=== PATIENT | female | born 1945 | race Caucasian/White ===

== ENCOUNTER 2018-03-14 14:31 | Inpatient (IN) | payer OTHER ==
[~2018-03-14] VITALS: Ht 157.5 cm; Wt 88.4 kg
[2018-03-14] MEDS ORDERED: ALBUTEROL 0.083% NEBU SOLN 3 ML VIAL INH STA (15:17)
[2018-03-14] MEDS ORDERED: METHYLPREDNISOLONE 125 MG VIAL IV STA (15:17)
--- NOTE | 2018-03-14 16:03 | DIAGNOSTIC IMAGING REPORT ---
SINGLE VIEW CHEST CLINICAL HISTORY: Atypical chest pain. FINDINGS: An AP, portable, upright chest radiograph is obtained. No prior studies are available for comparison at the time of dictation. The examination is degraded by portable technique and patient rotation. The heart is mildly enlarged and there is atherosclerotic calcification of the thoracic aorta. Enlargement of the central pulmonary arteries suggests pulmonary artery hypertension. There is prominence of the central pulmonary vasculature. Patchy airspace opacities are present at both lung bases. Nonspecific interstitial thickening is likely chronic. No large pleural effusion or pneumothorax is seen. The skeletal structures are osteopenic. The bony thorax is grossly intact. IMPRESSION: 1. Cardiomegaly with prominence of the central pulmonary vessels. Correlate clinically for evidence of mild congestive failure. 2. There are bibasilar airspace opacities. This could represent atelectasis versus an infectious/inflammatory pneumonitis. Clinical correlation will be required and radiographic follow-up to resolution is recommended. Electronically signed by: Bogdan Graham M.D. 03/14/2018 4:02 PM Dictated Date/Time: 03/14/2018 4:00 PM
[2018-03-14] MEDS ORDERED: ASPI325T39 PO (16:11)
[2018-03-14] MEDS ORDERED: TRMCR130WC TOP (16:11)
[2018-03-14] MEDS ORDERED: IPRA1AER2 INH (16:11)
[2018-03-14] MEDS ORDERED: PRED20TA PO (16:11)
[2018-03-14] MEDS ORDERED: ADVIN25/60 INH (16:11)
[2018-03-14] MEDS ORDERED: VNTHFA/IN INH (16:11)
[2018-03-14 16:48] LABS: CALCIUM 8.5 mg/dl (8.5-10.1); CKMB 3.2 ng/ml (0.5-3.6); CREATININE 0.93 mg/dl (0.60-1.20); POTASSIUM 3.4 mmol/L (3.5-5.1)
[2018-03-14 16:51] LABS: BASO % 0.3 %; BASO ABS # 0.03 K/uL (0-0.2); HEMATOCRIT 44.9 % (37-47); HEMOGLOBIN 16.3 g/dL (12.0-16.0); IG# 0.07 K/uL (0.00-0.02); LYMPH % 5.7 %; LYMPH ABS # 0.66 K/uL (1.2-3.4); MEAN CELL VOLUME 85.2 fL (80-100); MEAN CORPUSCULAR HEMOGLOBIN 30.9 pg (25-34); MEAN CORPUSCULAR HGB CONC 36.3 g/dl (32-36); MEAN PLATELET VOLUME 12.7 fL (7.4-10.4); MONO % 11.7 %; MONO ABS # 1.34 K/uL (0.11-0.59); NEUT % 81.7 %; NEUT ABS # 9.38 K/uL (1.4-6.5); PLATELET COUNT 190 K/uL (130-400); RED CELL DISTRIBUTION WIDTH SD 43.2 fL (36.4-46.3); WHITE BLOOD COUNT 11.48 K/uL (4.8-10.8)
[2018-03-14] MEDS ORDERED: LEVAQUIN 750MG / 150ML D5W IV STA (16:58)
[2018-03-14] MEDS ORDERED: ASPIRIN 81 MG CHEW PO STA (16:58)
[2018-03-14] MEDS ORDERED: POTASSIUM CHLORIDE 10 MEQ TABCR PO STA (17:51)
[2018-03-14] MEDS ORDERED: ACETAMINOPHEN 325 MG TAB PO PRN (18:00)
[2018-03-14] MEDS ORDERED: B-CO1CAP3 (18:04)
[2018-03-14] MEDS ORDERED: SODIUM CHLORIDE 0.9% 1000ML 1,000 ML IV SCH (18:15)
[2018-03-14] MEDS ORDERED: OPTIRAY 320 IV PRN (18:15)
--- NOTE | 2018-03-14 18:19 | EMERGENCY ROOM VISIT NOTE ---
History Report prepared by Jarredibpipe: Mary Sabillon Under the Supervision of: Dr. Mik Reyes D.O. First contact with patient: 15:06 Chief Complaint: RESPIRATORY DISTRESS Stated Complaint: RESPIRATORY Nursing Triage Summary: Patient to ED via ALS from home for acute SOB. Per EMS, pt found wearing chronic o2 3lpm. On arrival, O2sat 90%, placed pt on oxymask O2 15lpm to achieve o2 sat 95%. RR 30's. Sinus tach 130's. Temp 101 F. Pt recieved approx 400ml IV NSS prehospital. Pt denies chest/abdominal pain. O2 sat 94% on o2 4lpm. Red wound noted to left leg. BLE edematous. Patient incontinent of urine. History of Present Illness The patient is a 72 year old female who presents to the Emergency Room with complaints of worsening shortness of breath for the past 2 months, stating she could not breathe. She normally wears 3 to 4 L NC chronically for a history of chronic bronchitis. She was 90% on EMS arrival and was placed on an oxygen mask , increasing to 95%. She denies any chest pain or new cough. Patient denies any history of COPD, congestive heart failure, blood clots, or asthma. She admits to recent weight gain and leg swelling. She also complains of "clear, thick, mucous in the lungs with difficulty getting it out," and it has been occurring for a few months. She spoke to her home nurse on the phone earlier today, and told him about her recent trouble breathing. The nurse recommended that she go to the hospital. 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 A total of 10 systems reviewed and were otherwise negative. Past Medical & Surgical Medical Problems: (1) Chronic bronchitis (2) COPD exacerbation Social History Smoking Status: Never Smoker Alcohol Use: none Drug Use: none Marital Status: Housing Status: lives alone Occupation Status: retired Current/Historical Medications Scheduled Fluticasone Prop/Salmeterol (Advair Diskus 250/50 60 Dose), 1 PUFF INH BID Ipratropium-Albuterol (Combivent Respimat), 1 PUFFS INH Q4 Prednisone (Prednisone), 40 MG PO DAILY Triamcinolone Acet (Aristocort 0.1%), 1 APPLN TOP BID Scheduled PRN Albuterol Hfa (Ventolin Hfa), 2 PUFFS INH Q4 PRN for SOB/Wheezing Miscellaneous Medications B-Complex Vitamins (B Complex) Allergies Coded Allergies: No Known Allergies (Unverified , 03/14/18) Physical Exam Vital Signs Date Time Temp Pulse Resp B/P (MAP) Pulse Ox O2 Delivery O2 Flow Rate FiO2 03/14/18 17:37 113 03/14/18 16:44 37.7 113 31 160/85 92 Oxymask 6.0 03/14/18 14:44 109 03/14/18 14:40 93 Oxymask 6.0 03/14/18 14:35 89 Nasal Cannula 4.0 03/14/18 14:35 37.6 105 30 160/85 89 Nasal Cannula 4.0 Physical Exam GENERAL: Sitting up in bed, alert, ill appearing, dyspneic with conversation on oxygen mask, well nourished, no distress, non-toxic EYE EXAM: normal conjunctiva. OROPHARYNX: no exudate, no erythema, lips, buccal mucosa, and tongue normal and mucous membranes are moist NECK: supple, no nuchal rigidity, no adenopathy, non-tender LUNGS: Lung sounds are diminished bilaterally, with poor air movement. Normal chest wall mechanics HEART: no murmurs, S1 normal and S2 normal ABDOMEN: abdomen soft, non-tender, normo-active bowel sounds, no masses, no rebound or guarding. BACK: Back is symmetrical on inspection and there is no deformity, no midline tenderness, no CVA tenderness. SKIN: no rashes and no bruising UPPER EXTREMITIES: upper extremities are grossly normal. LOWER EXTREMITIES: Calves are equal bilaterally. NEURO EXAM: Normal sensorium, cranial nerves II-XII grossly intact, normal speech, no gross weakness of arms, no gross weakness of legs. Gross sensation intact. Medical Decision & Procedures ER Provider Diagnostic Interpretation: Radiology results as stated below per my review and the radiologist's interpretation: SINGLE VIEW CHEST CLINICAL HISTORY: Atypical chest pain. FINDINGS: An AP, portable, upright chest radiograph is obtained. No prior studies are available for comparison at the time of dictation. The examination is degraded by portable technique and patient rotation. The heart is mildly enlarged and there is atherosclerotic calcification of the thoracic aorta. Enlargement of the central pulmonary arteries suggests pulmonary artery hypertension. There is prominence of the central pulmonary vasculature. Patchy airspace opacities are present at both lung bases. Nonspecific interstitial thickening is likely chronic. No large pleural effusion or pneumothorax is seen. The skeletal structures are osteopenic. The bony thorax is grossly intact. IMPRESSION: 1. Cardiomegaly with prominence of the central pulmonary vessels. Correlate clinically for evidence of mild congestive failure. 2. There are bibasilar airspace opacities. This could represent atelectasis versus an infectious/inflammatory pneumonitis. Clinical correlation will be required and radiographic follow-up to resolution is recommended. Electronically signed by: Bogdan Graham M.D. 03/14/2018 4:02 PM Laboratory Results 03/14/18 14:05 Red Blood Count 5.27, Mean Corpuscular Volume 85.2, Mean Corpuscular Hemoglobin 30.9, Mean Corpuscular Hemoglobin Concent 36.3, Mean Platelet Volume 12.7, Neutrophils (%) (Auto) 81.7, Lymphocytes (%) (Auto) 5.7, Monocytes (%) (Auto) 11.7, Eosinophils (%) (Auto) 0.0, Basophils (%) (Auto) 0.3, Neutrophils # (Auto ) 9.38, Lymphocytes # (Auto) 0.66, Monocytes # (Auto) 1.34, Eosinophils # (Auto ) 0.00, Basophils # (Auto) 0.03 03/14/18 14:05 Test 03/14/18 14:05 03/14/18 17:51 03/14/18 17:53 White Blood Count 11.48 K/uL (4.8-10.8) Red Blood Count 5.27 M/uL (4.2-5.4) Hemoglobin 16.3 g/dL (12.0-16.0) Hematocrit 44.9 % (37-47) Mean Corpuscular Volume 85.2 fL (80-100) Mean Corpuscular Hemoglobin 30.9 pg (25-34) Mean Corpuscular Hemoglobin Concent 36.3 g/dl (32-36) Platelet Count 190 K/uL (130-400) Mean Platelet Volume 12.7 fL (7.4-10.4) Neutrophils (%) (Auto) 81.7 % Lymphocytes (%) (Auto) 5.7 % Monocytes (%) (Auto) 11.7 % Eosinophils (%) (Auto) 0.0 % Basophils (%) (Auto) 0.3 % Neutrophils # (Auto) 9.38 K/uL (1.4-6.5) Lymphocytes # (Auto) 0.66 K/uL (1.2-3.4) Monocytes # (Auto) 1.34 K/uL (0.11-0.59) Eosinophils # (Auto) 0.00 K/uL (0-0.5) Basophils # (Auto) 0.03 K/uL (0-0.2) RDW Standard Deviation 43.2 fL (36.4-46.3) RDW Coefficient of Variation 14.0 % (11.5-14.5) Immature Granulocyte % (Auto) 0.6 % Immature Granulocyte # (Auto) 0.07 K/uL (0.00-0.02) Anion Gap 11.0 mmol/L (3-11) Est Creatinine Clear Calc Drug Dose 63.0 ml/min Estimated GFR () 71.2 Estimated GFR (Non- 61.4 BUN/Creatinine Ratio 15.9 (10-20) Calcium Level 8.5 mg/dl (8.5-10.1) Total Creatine Kinase 382 U/L (26-192) Creatine Kinase MB 3.2 ng/ml (0.5-3.6) Creatine Kinase MB Ratio 0.8 (0-3.0) Troponin I 0.219 ng/ml (0-0.045) Laboratory results per my review. Medications Administered Medications (Trade) Dose Ordered Sig/Kenna Route Start Time Stop Time Status Last Admin Dose Admin Albuterol Sulfate (Ventolin 0.083% 2.5MG/3ML [facility]) 5 mg NOW STAT INH 03/14/18 15:17 03/14/18 15:29 DC 03/14/18 15:27 5 MG Methylprednisolone Sodium Succinate (Solu-Medrol IV) 125 mg NOW STAT IV 03/14/18 15:17 03/14/18 15:29 DC 03/14/18 15:27 125 MG Levofloxacin (Levaquin / D5W) 750 mg NOW STAT IV 03/14/18 16:58 03/14/18 16:59 DC 03/14/18 17:14 750 MG Aspirin (Aspirin Chew) 324 mg NOW STAT PO 03/14/18 16:58 03/14/18 16:59 DC 03/14/18 17:14 324 MG ECG Per My Interpretation Indication: SOB/dyspnea Rate (beats per minute): 116 Rhythm: sinus tachycardia Findings: other (normal axis, non-specific changes in the lateral and inferior leads) ED Course ED COURSE: Vital signs were reviewed and showed the patient is hypoxic and tachycardic. The patients medical record was reviewed The above diagnostic studies were performed and reviewed. ED treatments and interventions as stated above. 1508: The patient was evaluated in room A10. A complete history and physical examination was performed. 1517: Solu-Medrol 125 mg IV, Albuterol Sulfate .083% 2.5 mg/3 mL 5 mg INH. 1658: Aspirin 324 mg PO, Levaquin 750 mg IV. 1659: I discussed the patients case with JAKE Jacobson, [facility] Hospitalist. The patient will be further evaluated. 1700: Upon reevaluation, the patient is feeling better and resting comfortably. I discussed my findings with the patient and she understands and agrees with the treatment plan. Based on the patients age, coexisting illnesses, exam and lab findings the decision to treat as an inpatient was made. The patient remained stable while under my care. The patient will be evaluated for further management. Medical Decision Differential diagnoses includes but is not limited to pneumonia, bronchitis, COPD/Asthma exacerbation, pneumothorax, pulmonary embolism, congestive heart failure, acute coronary syndrome. Patient is a 72-year-old female brought in for shortness of breath. This is been worsening for the past 1.5 months. Patient notes that her sputum has changed in the past 2 weeks and has become very thick. CBC shows a mild leukocytosis. Mild hyponatremia on BMP. Troponin was elevated at 0.219. Chest x-ray showed chest possible infiltrates. Based on the patient's symptoms and reported fevers at home I do believe that this most consistent with a COPD exacerbation. Patient was covered with IV Levaquin. She was given multiple doses of albuterol and steroids. Patient was admitted to internal medicine with a COPD exacerbation and bronchitis. Pulse ox initially was in the mid 80s and she was flipped to an oxygen mask and pulse ox trended up to 92%. Medication Reconcilliation Current Medication List: was personally reviewed by me Blood Pressure Screening Patient's blood pressure: Elevated blood pressure Blood pressure disposition: Referred to PCP Consults Time Called: 1654 Consulting Physician: JAKE Jacobson [facility] Hospitalist Returned Call: 1658 I discussed the patients case with JAKE Jacobson [facility] Hospitalist. The patient will be further evaluated. Impression Primary Impression: COPD exacerbation Additional Impression: Hypoxia Scribe Attestation The scribe's documentation has been prepared under my direction and personally reviewed by me in its entirety. I confirm that the note above accurately reflects all work, treatment, procedures, and medical decision making performed by me. Departure Information Dispostion Being Evaluated By Hospitalist Referrals Dada Carr M.D. (PCP) Patient Instructions Asthma - [facility], COPD - [facility], Croup - [facility], My [facility] Problem Qualifiers
[2018-03-14 19:00] VITALS: BP 119/75; PULSE 88; TEMP 36.6; O2SAT 93; Ht 157.5 cm; Wt 88.4 kg
--- NOTE | 2018-03-14 19:56 | History and Physical ---
History & Physical Date & Time of Service: Mar 14, 2018 at 18:23 Chief Complaint: Respiratory Primary Care Physician: Dada Carr M.D. History of Present Illness Source: patient This is a 72-year-old white female, Jehovah witness, who has a significant past medical history of COPD-chronic bronchitis type with O2 dependence 3L, right pulmonary nodule, HTN, left lower extremity venous stasis dermatitis who presents to [facility] secondary to worsening shortness of breath 2 weeks. Over the past 2 weeks her shortness of breath has gotten progressively worse, complains of cough productive of thick purulent sputum. Initially cough was moist but unable to produce; however now productive. Complains of dyspnea on exertion, decreased appetite, chronic dry mouth, sweats. She has tried nothing [id number] for cough relief. She did have a rescue prednisone pack in which she started, unsure what day she started it, but has been taking 40 mg daily with no relief. Denies documented fever, chills , lightheadedness, dizziness, chest pain, palpitations, hemoptysis, nausea, vomiting, diarrhea, UTI symptoms. Upon initial evaluation patient was noted to be hypoxic on 3 L via nasal cannula. O2 increased to 6 L Via Oxymizer mask with improvement of oxygenation. Patient remains tachycardic. In ED was given 125 mg methylprednisolone, 750 mg IV Levaquin, 324 mg aspirin, albuterol breathing treatment. She is now saturating at 90-92% on 6 L oxymask. Lab work revealed leukocytosis with white blood cell count 11.48, hemoglobin 16.3, hematocrit 44.9, platelet 190, sodium 129, potassium 3.4, BUN 15, creatinine 0.93, glucose 127, elevated troponin 0.219, CK 382. EKG revealed sinus tachycardia with 160 bpm, no ST-T wave abnormalities. Patient will be admitted for COPD exacerbation with acute on chronic hypoxic respiratory failure, hypokalemia and leukocytosis. Past Medical/Surgical History Medical Problems: (1) Chronic bronchitis Status: Chronic (2) HTN (hypertension) Status: Chronic (3) Obesity (BMI 35.0-39.9 without comorbidity) Status: Chronic (4) Pulmonary nodule, right Permanent Comment: last CT in 2010 revealed R lung nodule, recommended FNA or PET, patient refused further work up Status: Chronic (5) Venous stasis dermatitis of left lower extremity Status: Chronic Surgical Problems: (1) History of colonoscopy Status: Chronic (2) History of D&C Status: Chronic (3) History of tubal ligation Status: Chronic Family History Black lung FATHER, FH: lung disease FATHER, Social History Jehovah Witness, does not accept blood products Smoking Status: Former Smoker (quit in 11/1978; 20 pack year history) Smokeless Tobacco Use: No Alcohol Use: none Drug Use: none Marital Status: Housing status: lives with family (son lives with her) Occupational Status: retired Immunizations History of Influenza Vaccine: Unknown History of Tetanus Vaccine?: Yes Tetanus Immunization Date: Mar [birth year], 1964 History of Pneumococcal: Yes Pneumococcal Date: Mar 15, 2010 History of Hepatitis B Vaccine: Unknown Allergies Coded Allergies: No Known Allergies (Unverified , 03/14/18) Home Medications Scheduled Fluticasone Prop/Salmeterol (Advair Diskus 250/50 60 Dose), 1 PUFF INH BID Ipratropium-Albuterol (Combivent Respimat), 1 PUFFS INH Q4 Prednisone (Prednisone), 40 MG PO DAILY Triamcinolone Acet (Aristocort 0.1%), 1 APPLN TOP BID Scheduled PRN Albuterol Hfa (Ventolin Hfa), 2 PUFFS INH Q4 PRN for SOB/Wheezing Miscellaneous Medications B-Complex Vitamins (B Complex) Review of Systems As noted per HPI, 10 systems reviewed and negative unless noted above. Physical Exam Vital Signs Date Time Temp Pulse Resp B/P (MAP) Pulse Ox O2 Delivery O2 Flow Rate FiO2 03/14/18 17:37 113 03/14/18 16:44 37.7 113 31 160/85 92 Oxymask 6.0 03/14/18 14:44 109 03/14/18 14:40 93 Oxymask 6.0 03/14/18 14:35 89 Nasal Cannula 4.0 03/14/18 14:35 37.6 105 30 160/85 89 Nasal Cannula 4.0 General Appearance: + obese (female, currently in no distress, poorly groomed, easily converses) Head: normocephalic, atraumatic Eyes: normal inspection, sclerae normal ENT: hearing grossly normal, pharynx normal, + pertinent finding (mucous membrane dry, teeth absent) Neck: supple, no adenopathy, thyroid normal, no JVD, no carotid bruits Respiratory/Chest: chest non-tender, lungs clear, normal breath sounds, no respiratory distress, no accessory muscle use Cardiovascular: + tachycardia (regular rhythm, 1/6 TEO heard best RUSB), + systolic murmur Abdomen/GI: normal bowel sounds, non tender, soft, + distended (secondary to obesity) Back: normal inspection, no muscle spasm, normal range of motion Extremities/Musculoskelatal: normal inspection, no calf tenderness, normal capillary refill 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, alert, normal mood/affect, oriented x 3 Skin: normal color, + pertinent finding (+LLE venous stasis dermatitis with surrounding erythema ) Diagnostics Laboratory Results Results Past 24 Hours Test 03/14/18 14:05 03/14/18 16:33 03/14/18 17:53 Range/Units White Blood Count 11.48 4.8-10.8 K/uL Red Blood Count 5.27 4.2-5.4 M/uL Hemoglobin 16.3 12.0-16.0 g/dL Hematocrit 44.9 37-47 % Mean Corpuscular Volume 85.2 80-100 fL Mean Corpuscular Hemoglobin 30.9 25-34 pg Mean Corpuscular Hemoglobin Concent 36.3 32-36 g/dl Platelet Count 190 130-400 K/uL Mean Platelet Volume 12.7 7.4-10.4 fL Neutrophils (%) (Auto) 81.7 % Lymphocytes (%) (Auto) 5.7 % Monocytes (%) (Auto) 11.7 % Eosinophils (%) (Auto) 0.0 % Basophils (%) (Auto) 0.3 % Neutrophils # (Auto) 9.38 1.4-6.5 K/uL Lymphocytes # (Auto) 0.66 1.2-3.4 K/uL Monocytes # (Auto) 1.34 0.11-0.59 K/uL Eosinophils # (Auto) 0.00 0-0.5 K/uL Basophils # (Auto) 0.03 0-0.2 K/uL RDW Standard Deviation 43.2 36.4-46.3 fL RDW Coefficient of Variation 14.0 11.5-14.5 % Immature Granulocyte % (Auto) 0.6 % Immature Granulocyte # (Auto) 0.07 0.00-0.02 K/uL Sodium Level 129 136-145 mmol/L Potassium Level 3.4 3.5-5.1 mmol/L Chloride Level 97 98-107 mmol/L Carbon Dioxide Level 21 21-32 mmol/L Anion Gap 11.0 3-11 mmol/L Blood Urea Nitrogen 15 7-18 mg/dl Creatinine 0.93 0.60-1.20 mg/dl Est Creatinine Clear Calc Drug Dose 63.0 ml/min Estimated GFR () 71.2 Estimated GFR (Non- 61.4 BUN/Creatinine Ratio 15.9 10-20 Random Glucose 127 70-99 mg/dl Calcium Level 8.5 8.5-10.1 mg/dl Total Creatine Kinase 382 26-192 U/L Creatine Kinase MB 3.2 0.5-3.6 ng/ml Creatine Kinase MB Ratio 0.8 0-3.0 Troponin I 0.219 0-0.045 ng/ml Microbiology Results 03/14/18 Blood Culture, Received Pending 03/14/18 Blood Culture, Received Pending Diagnostic Radiology CXR: 1. Cardiomegaly with prominence of the central pulmonary vessels. Correlate clinically for evidence of mild congestive failure. 2. There are bibasilar airspace opacities. This could represent atelectasis versus an infectious/inflammatory pneumonitis. Clinical correlation will be required and radiographic follow-up to resolution is recommended. other (sinus tachycardia with rate 116, no ST T wave changes, QTC 494) Impression Assessment and Plan This is a 72-year-old white female, Jehovah witness, who has a significant past medical history of COPD-chronic bronchitis type with O2 dependence 3L, right pulmonary nodule, HTN, left lower extremity venous stasis dermatitis who presents to [facility] secondary to worsening shortness of breath 2 weeks. In ED was given 125 mg methylprednisolone, 750 mg IV Levaquin, 324 mg aspirin, albuterol breathing treatment. She is now saturating at 90-92% on 6 L oxymask. Lab work revealed leukocytosis with white blood cell count 11.48, hemoglobin 16.3, hematocrit 44.9, platelet 190, sodium 129, potassium 3.4 , BUN 15, creatinine 0.93, glucose 127, elevated troponin 0.219, CK 382, Lactic Acid 1.5, procalcitonin WNL. EKG revealed sinus tachycardia with 116 bpm, no ST -T wave abnormalities. Patient will be admitted for COPD exacerbation with acute on chronic hypoxic respiratory failure, hypokalemia and leukocytosis. Acute on chronic hypoxic respiratory failure Chronic bronchitis exacerbation -admit to med/surg telemetry -CT scan to r/o PE and further investigate b/l bibasilar opacities to determine if this is infectious process CT scan in 2010 revealed b/l ground glass opacities/R pulmonary nodule. -IV methylprednisolone 40 mg every 8hr -Xopenex/ipratropium q4hr routine -Step up ICS therapy with Advair to 500mcg bid -Guaifenesin 600 mg q12hr -Flutter valve -Was given IV Levaquin 750 in ED at 1700. Procalcitonin wnl, lactic acid 1.5. -Await CT Scan results prior to initiating further antibiotic therapy to determine if PNA is present. SIRS -elevated WBC, Tachycardic, Tachypneic -IV levaquin given -She is not hypotensive -Lactic Acid 1.5 Leukocytosis -? if secondary to infectious process or outpatient steroid use Hypokalemia -replete with 20meq kdur x 1 now -repeat bmp in a.m. Elevated troponin/elevated CK -Currently no chest pain -[place] most likely to be secondary to respiratory component -Trend troponin q6hr 2 -If continues to elevate we will consult cardiology Hypertension -Not on any oral antihypertensives at home -We will monitor blood pressure according Chronic left lower extremity venous stasis dermatitis -continue topical steroid use Disposition -will involve case management -Plan to discharge to home Attending addendum: The patient was seen and examined in the emergency room Was admitted with increasing shortness of breath for the last few days Denies any chest pain, fever, chills or any nausea and/or vomiting during the examination Required to 6 L of oxygen to maintain saturation at ER On examination Moderate shortness of breath at rest Chest-decreased breath sounds all over with the wheezing bilaterally Heart S1-S2, no murmur appreciated Abdomen-benign, nontender and no organomegaly Extremities-trace edema, very superficial skin abrasion on right side but no evidence of infection Admission labs and imaging studies reviewed CTA is pending to rule out pulmonary embolism Agree with assessment and plan as outlined above Dr. Eliana Key Resuscitation Status DNR Spoke with patient at bedside, she is her own POA, does not have a living will. She wishes to be DNR VTE Prophylaxis Will order VTE Prophylaxis: Yes (Lovenox)
[2018-03-14] MEDS ORDERED: LEVALBUTEROL/IPRATROPIUM NEB INH SCH (20:00)
[2018-03-14] MEDS: IPRATROPIUM BROMIDE NEB SOLN 0.02% 2.5 ML VIAL INH SCH ×2 (20:00→23:25)
[2018-03-14] MEDS: LEVALBUTEROL 0.63MG/3 ML NEB INH SCH ×2 (20:00→23:25)
[2018-03-14] MEDS ORDERED: LEVALBUTEROL 0.63MG/3 ML NEB INH SCH (20:00)
--- NOTE | 2018-03-14 20:36 | DIAGNOSTIC IMAGING REPORT ---
CT ANGIOGRAM OF THE CHEST CLINICAL HISTORY: Tachycardia. COPD. COMPARISON STUDY: Chest x-ray dated 03/14/2018. TECHNIQUE: Following the IV administration of 117 cc of Optiray 320, CT angiogram of the chest was performed from the upper abdomen to the thoracic inlet utilizing the pulmonary embolus protocol. Images are reviewed in the axial, sagittal, and coronal planes. 3-D MIPS images are created and assessed. IV contrast was administered without complication. A dose lowering technique was utilized adhering to the principles of ALARA. The examination is degraded by motion artifact. CT DOSE: 472.75 mGy.cm FINDINGS: Thyroid: Imaged portions of the thyroid gland are normal in size and attenuation. Thoracic aorta: The thoracic aorta is normal in caliber and demonstrates standard 3-vessel arch anatomy. No dissection is seen. Pulmonary vasculature: The main pulmonary arteries are dilated indicating pulmonary artery hypertension. There are no filling defects identified in main, lobar, or segmental pulmonary branches to suggest pulmonary embolus. Although a subsegmental pulmonary vessel extends to the nodule in the right lower lung there is no clear intraluminal filling defect to confirm the presence of pulmonary embolus. Heart: The heart is enlarged and without pericardial effusion. The coronary arteries are densely calcified. Lungs and pleural spaces: Advanced emphysematous change is identified. There is no airspace consolidation typical for pneumonia or pleural effusion. The trachea and central airways are clear. There is a 1.6 x 1.0 cm irregular low-attenuation nodule in the subpleural right lower lobe seen on image #109. A 4 mm nodule in the right lower lobe as seen on image #125. A tiny fat-containing Bochdalek hernia is noted at the left lung base. Mediastinum: There is no mediastinal lymphadenopathy. Meryl: Clear. Axillae: There is no axillary lymphadenopathy. Upper abdomen: There are large calcified gallstones. A small hiatal hernia is noted. Skeletal structures: The skeletal structures are osteopenic. No lytic or blastic bony lesions are seen. There are healed bilateral anterior rib fractures. There is a mild age-indeterminate superior end plate compression deformity of T5. Mild degenerative changes noted throughout the thoracic spine. Advanced degenerative changes noted in the left shoulder.. IMPRESSION: 1. There is no evidence of pulmonary embolus in the main, lobar, or segmental pulmonary arteries. 2. Cardiomegaly and advanced emphysema with evidence of pulmonary artery hypertension. 3. There is no airspace consolidation typical for pneumonia or pleural effusion. 4. There is a 1.6 cm irregular low-attenuation nodule at the right lung base. This is pathologically indeterminant and neoplasm is to be excluded. A 1-2 month follow-up chest CT is recommended for reassessment. 5. Cholelithiasis. 6. Additional findings as above. Electronically signed by: Bogdan Graham M.D. 03/14/2018 8:35 PM Dictated Date/Time: 03/14/2018 8:24 PM
[2018-03-14 20:51] LABS: INR 1.1 (0.9-1.1); PTT PATIENT 33.7 SECONDS (21.0-31.0)
[2018-03-14] MEDS: ENOXAPARIN 40 MG/0.4 ML SYR SC SCH (21:00)
[2018-03-14] MEDS: TRIAMCINOLONE ACET 0.1% CR 15 GM TUBE EXT SCH (21:20)
[2018-03-14] MEDS: GUAIFENESIN 600 MG TABCR PO SCH (21:20)
[2018-03-14] MEDS: FLUTICASONE/SALMETEROL (ADVAIR) 500/50 INH 14 PUFF INH SCH (21:21)
[2018-03-14] MEDS ORDERED: POTASSIUM CHLORIDE 10 MEQ TABCR PO ONE (21:30)
[2018-03-14] MEDS ORDERED: POTASSIUM CITRATE 10 MEQ TAB PO SCH (21:30)
[2018-03-14] MEDS: METHYLPREDNISOLONE IV 40 MG in SYRINGE 0 ML IV SCH (22:12)
[2018-03-14 23:25] VITALS: PULSE 88; O2SAT 96
[2018-03-14 23:44] VITALS: BP 130/84; PULSE 80; TEMP 36.5; O2SAT 93
[2018-03-15] VITALS (12 sets, daily range): BP systolic 143–177; BP diastolic 55–101; PULSE 67–92; TEMP 36.4–37.2; O2SAT 90–96
[2018-03-15] MEDS: IPRATROPIUM BROMIDE NEB SOLN 0.02% 2.5 ML VIAL INH SCH ×6 (01:40→23:04)
[2018-03-15] MEDS: LEVALBUTEROL 0.63MG/3 ML NEB INH SCH ×6 (01:40→23:04)
[2018-03-15 02:22] LABS: BASO % 0.1 %; BASO ABS # 0.01 K/uL (0-0.2); HEMATOCRIT 46.1 % (37-47); IG# 0.06 K/uL (0.00-0.02); LYMPH % 10.2 %; LYMPH ABS # 0.86 K/uL (1.2-3.4); MEAN CELL VOLUME 85.8 fL (80-100); MEAN CORPUSCULAR HEMOGLOBIN 29.8 pg (25-34); MEAN CORPUSCULAR HGB CONC 34.7 g/dl (32-36); MEAN PLATELET VOLUME 11.9 fL (7.4-10.4); MONO % 4.6 %; MONO ABS # 0.39 K/uL (0.11-0.59); NEUT % 84.4 %; NEUT ABS # 7.15 K/uL (1.4-6.5); PLATELET COUNT 209 K/uL (130-400); RED CELL DISTRIBUTION WIDTH CV 14.1 % (11.5-14.5); RED CELL DISTRIBUTION WIDTH SD 43.8 fL (36.4-46.3); WHITE BLOOD COUNT 8.47 K/uL (4.8-10.8)
[2018-03-15] MEDS: METHYLPREDNISOLONE IV 40 MG in SYRINGE 0 ML IV SCH ×2 (05:43→20:23)
[2018-03-15 07:09] LABS: CALCIUM 8.4 mg/dl (8.5-10.1); CREATININE 0.9 mg/dl (0.60-1.20); POTASSIUM 3.4 mmol/L (3.5-5.1)
[2018-03-15] MEDS: GUAIFENESIN 600 MG TABCR PO SCH ×2 (07:37→20:24)
[2018-03-15] MEDS: TRIAMCINOLONE ACET 0.1% CR 15 GM TUBE EXT SCH ×2 (07:37→20:23)
[2018-03-15] MEDS: VITAMIN B COMPLEX TAB PO SCH (07:37)
[2018-03-15] MEDS: FLUTICASONE/SALMETEROL (ADVAIR) 500/50 INH 14 PUFF INH SCH ×2 (07:37→20:23)
[2018-03-15] MEDS ORDERED: POTASSIUM CHLORIDE 20 MEQ TABCR PO ONE (11:00)
--- NOTE | 2018-03-15 11:16 | Progress Note ---
Medicine Progress Note Date & Time of Visit: Mar 15, 2018 at 10:47. Subjective Pt was seen and examined Lying in bed with no distress Pt said that she feels much better She did not cough once when i saw during the visit She said that she is able to control her cough Her breathing improves No chest pain, palpitation and fever Objective Last 8 Hrs Date Time Temp Pulse Resp B/P (MAP) Pulse Ox O2 Delivery O2 Flow Rate FiO2 03/15/18 08:00 Nasal Cannula 4.0 03/15/18 07:07 36.4 72 21 143/87 (105) 94 Nasal Cannula 4.0 03/15/18 07:06 73 18 94 Nasal Cannula 4.0 03/15/18 03:52 Nasal Cannula 4.0 03/15/18 03:30 36.5 85 20 149/82 (104) 96 Nasal Cannula 4.0 Physical Exam: General- No acute distress Head- atraumatic Eyes- PERRL, EOMI ENT- oropharynx clear Neck- no JVD Lungs- faint wheezing Heart- regular rhythm Abdomen- normal bowel sounds, soft Extremities- No calf tenderness, LLE erythema with superficial dry skin abrasion Neuro- alert, oriented x 3; PERRL, EOMI; no facial palsy; no dysarthria Laboratory Results: Last 24 Hours Test 03/14/18 14:05 03/14/18 16:33 03/14/18 17:53 03/14/18 20:54 White Blood Count 11.48 K/uL Red Blood Count 5.27 M/uL Hemoglobin 16.3 g/dL Hematocrit 44.9 % Mean Corpuscular Volume 85.2 fL Mean Corpuscular Hemoglobin 30.9 pg Mean Corpuscular Hemoglobin Concent 36.3 g/dl Platelet Count 190 K/uL Mean Platelet Volume 12.7 fL Neutrophils (%) (Auto) 81.7 % Lymphocytes (%) (Auto) 5.7 % Monocytes (%) (Auto) 11.7 % Eosinophils (%) (Auto) 0.0 % Basophils (%) (Auto) 0.3 % Neutrophils # (Auto) 9.38 K/uL Lymphocytes # (Auto) 0.66 K/uL Monocytes # (Auto) 1.34 K/uL Eosinophils # (Auto) 0.00 K/uL Basophils # (Auto) 0.03 K/uL RDW Standard Deviation 43.2 fL RDW Coefficient of Variation 14.0 % Immature Granulocyte % (Auto) 0.6 % Immature Granulocyte # (Auto) 0.07 K/uL Sodium Level 129 mmol/L Potassium Level 3.4 mmol/L Chloride Level 97 mmol/L Carbon Dioxide Level 21 mmol/L Anion Gap 11.0 mmol/L Blood Urea Nitrogen 15 mg/dl Creatinine 0.93 mg/dl Est Creatinine Clear Calc Drug Dose 63.0 ml/min Estimated GFR () 71.2 Estimated GFR (Non- 61.4 BUN/Creatinine Ratio 15.9 Random Glucose 127 mg/dl Calcium Level 8.5 mg/dl Total Creatine Kinase 382 U/L Creatine Kinase MB 3.2 ng/ml Creatine Kinase MB Ratio 0.8 Troponin I 0.219 ng/ml 0.120 ng/ml Prothrombin Time 11.3 SECONDS Prothromb Time International Ratio 1.1 Activated Partial Thromboplast Time 33.7 SECONDS Partial Thromboplastin Ratio 1.3 Procalcitonin 0.43 ng/ml Lactic Acid Level 1.4 mmol/L Test 03/15/18 02:13 03/15/18 06:07 White Blood Count 8.47 K/uL Red Blood Count 5.37 M/uL Hemoglobin 16.0 g/dL Hematocrit 46.1 % Mean Corpuscular Volume 85.8 fL Mean Corpuscular Hemoglobin 29.8 pg Mean Corpuscular Hemoglobin Concent 34.7 g/dl Platelet Count 209 K/uL Mean Platelet Volume 11.9 fL Neutrophils (%) (Auto) 84.4 % Lymphocytes (%) (Auto) 10.2 % Monocytes (%) (Auto) 4.6 % Eosinophils (%) (Auto) 0.0 % Basophils (%) (Auto) 0.1 % Neutrophils # (Auto) 7.15 K/uL Lymphocytes # (Auto) 0.86 K/uL Monocytes # (Auto) 0.39 K/uL Eosinophils # (Auto) 0.00 K/uL Basophils # (Auto) 0.01 K/uL RDW Standard Deviation 43.8 fL RDW Coefficient of Variation 14.1 % Immature Granulocyte % (Auto) 0.7 % Immature Granulocyte # (Auto) 0.06 K/uL Troponin I 0.065 ng/ml Sodium Level 136 mmol/L Potassium Level 3.4 mmol/L Chloride Level 105 mmol/L Carbon Dioxide Level 21 mmol/L Anion Gap 10.0 mmol/L Blood Urea Nitrogen 18 mg/dl Creatinine 0.90 mg/dl Est Creatinine Clear Calc Drug Dose 58.2 ml/min Estimated GFR () 73.5 Estimated GFR (Non- 63.4 BUN/Creatinine Ratio 19.7 Random Glucose 159 mg/dl Calcium Level 8.4 mg/dl Magnesium Level 2.1 mg/dl Hepatitis C Antibody Screen NEG Date/Time Source Procedure Growth Status 03/14/18 16:44 Blood Blood Culture Pending Received 03/14/18 16:34 Blood Blood Culture Pending Received Assessment & Plan Acute on chronic hypoxic respiratory failure COPD exacerbation CTA chest showed no evidence of pulmonary embolus and no airspace consolidation typical for pneumonia or pleural effusion. WBC trending down Procalcitonin and lactic acid normal Received Solumedrol IV 125 mg in the ER Starting on Solumedrol IV 40mg q8h, will taper to 40mg BID Continue neb treatment and guaifenesin Continue Advair 500/50 mcg Continue oxygen supplement Received Levaquin 750 mg in the ER Hold on further dose of abx for now until blood cx result Continue monitor closely Elevated WBC Possible related to outpatient steroid Procalcitonin and lactic acid normal WBC trending down to normal Received Levaquin in the ER Hold additional abx for now Continue monitor Hypokalemia K replaced Continue monitor BMP Elevated troponin Possible related to hypoxia Denies any chest pain EKG showed no ischemic changes Troponin trending down Continue monitor in tele Elevated CK level CK on admission 382 Continue IVF Monitor CK level Hypertension BP stable Continue monitor BP Chronic left lower extremity venous stasis dermatitis Continue topical steroid use Wound care on board DVT px On lovenox subq CODE STATUS DNR Disposition Continue monitor in tele Current Inpatient Medications: Current Inpatient Medications Medications (Trade) Dose Ordered Sig/Kenna Route Start Time Stop Time Status Last Admin Dose Admin Enoxaparin Sodium (Lovenox Inj) 40 mg DAILY@2100 SC 03/14/18 21:00 04/13/18 20:59 Acetaminophen (Tylenol Tab) 650 mg Q4H PRN PO 03/14/18 18:00 04/13/18 17:59 Ioversol (Optiray 320) 111 ml UD PRN IV 03/14/18 18:15 03/18/18 18:14 Methylprednisolone Sodium Succinate 40 mg/Syringe 0.64 ml @ 1.5 mls/min Q8 IV 03/14/18 22:00 04/13/18 21:59 03/15/18 05:43 1.5 MLS/MIN Guaifenesin (Mucinex Contr Rel Tab) 600 mg Q12 PO 03/14/18 21:00 04/13/18 20:59 03/15/18 07:37 600 MG Vitamin B Complex (Vitamin B Complex) 1 tab DAILY PO 03/15/18 09:00 04/14/18 08:59 03/15/18 07:37 1 TAB Triamcinolone Acetonide (Kenalog 0.1% Cream) 1 appln BID EXT 03/14/18 21:00 04/13/18 20:59 03/15/18 07:37 1 APPLN Salmeterol Xinafoate/ Fluticasone (Advair Diskus 500/50 Inh) 1 puff BID INH 03/14/18 21:00 04/13/18 20:59 03/15/18 07:37 1 PUFF Ipratropium [place] (Atrovent 0.02% 0.5MG/2.5ML Neb) 0.5 mg Q4R INH 03/14/18 20:00 04/13/18 19:59 03/15/18 07:04 0.5 MG Levalbuterol (Xopenex 0.63 Mg/ 3 Ml Neb) 0.63 mg Q4R INH 03/14/18 20:00 04/13/18 19:59 03/15/18 07:04 0.63 MG Potassium Chloride (Klor-Con Tab) 20 meq ONE ONCE PO 03/15/18 11:00 03/15/18 11:01
[2018-03-15] MEDS ORDERED: SODIUM CHLORIDE 0.65% NA SOLN 45 ML (OCEAN) ONE (13:03)
[2018-03-15] MEDS ORDERED: NURSING DECISION MEDICATION ORDER SCH (13:15)
[2018-03-15] MEDS ORDERED: SODIUM CHLORIDE 0.65% NA SOLN 45 ML (OCEAN) PRN (13:30)
[2018-03-15] MEDS: ENOXAPARIN 40 MG/0.4 ML SYR SC SCH (20:24)
[2018-03-16] VITALS (13 sets, daily range): BP systolic 152–189; BP diastolic 82–114; PULSE 63–88; TEMP 36.2–36.8; O2SAT 90–97
[2018-03-16] MEDS: IPRATROPIUM BROMIDE NEB SOLN 0.02% 2.5 ML VIAL INH SCH ×6 (03:10→23:12)
[2018-03-16] MEDS: LEVALBUTEROL 0.63MG/3 ML NEB INH SCH ×6 (03:11→23:12)
[2018-03-16] MEDS: TRIAMCINOLONE ACET 0.1% CR 15 GM TUBE EXT SCH ×2 (07:39→21:32)
[2018-03-16] MEDS: FLUTICASONE/SALMETEROL (ADVAIR) 500/50 INH 14 PUFF INH SCH ×2 (07:39→21:34)
[2018-03-16] MEDS: VITAMIN B COMPLEX TAB PO SCH (07:39)
[2018-03-16] MEDS: GUAIFENESIN 600 MG TABCR PO SCH ×2 (07:39→21:33)
[2018-03-16 07:48] LABS: CALCIUM 8.7 mg/dl (8.5-10.1); CREATININE 0.81 mg/dl (0.60-1.20); POTASSIUM 3.7 mmol/L (3.5-5.1)
[2018-03-16] MEDS ORDERED: SODIUM CHLORIDE 0.9% 500ML 500 ML IV SCH (08:45)
[2018-03-16 09:39] LABS: HEMOGLOBIN A1C 6.1 % (4.5-5.6)
[2018-03-16] MEDS: METHYLPREDNISOLONE IV 40 MG in SYRINGE 0 ML IV SCH ×2 (10:02→21:32)
--- NOTE | 2018-03-16 14:22 | Progress Note ---
Medicine Progress Note Date & Time of Visit: Mar 16, 2018 at 14:17. Subjective Pt was seen and examined Sitting in bed with no distress eating lunch Pt said that she feels a little better She said that her mouth was very dry this morning She said that when her mouth dry that causes him to have a hard time to breath Her breathing has been stable Denies any chest pain, palpitation and fever Objective Last 8 Hrs Date Time Temp Pulse Resp B/P (MAP) Pulse Ox O2 Delivery O2 Flow Rate FiO2 03/16/18 11:45 36.8 71 22 189/82 (117) 97 Room Air 03/16/18 11:06 88 18 91 Nasal Cannula 4.0 03/16/18 08:09 36.2 67 24 152/83 (106) 94 Nasal Cannula 3.0 03/16/18 08:00 Nasal Cannula 4.0 03/16/18 07:00 78 18 94 Nasal Cannula 4.0 Physical Exam: General- No acute distress Head- atraumatic Eyes- PERRL, EOMI ENT- oropharynx clear Neck- no JVD Lungs- No wheezing Heart- regular rhythm Abdomen- normal bowel sounds, soft Extremities- No calf tenderness, LLE erythema with superficial dry skin abrasion Neuro- alert, oriented x 3; PERRL, EOMI; no facial palsy; no dysarthria Laboratory Results: Last 24 Hours Test 03/16/18 06:47 Sodium Level 137 mmol/L Potassium Level 3.7 mmol/L Chloride Level 105 mmol/L Carbon Dioxide Level 23 mmol/L Anion Gap 9.0 mmol/L Blood Urea Nitrogen 19 mg/dl Creatinine 0.81 mg/dl Est Creatinine Clear Calc Drug Dose 64.2 ml/min Estimated GFR () 83.5 Estimated GFR (Non- 72.1 BUN/Creatinine Ratio 23.5 Random Glucose 135 mg/dl Estimated Average Glucose 128 mg/dl Hemoglobin A1c 6.1 % Calcium Level 8.7 mg/dl Magnesium Level 2.2 mg/dl Total Creatine Kinase 535 U/L Assessment & Plan Acute on chronic hypoxic respiratory failure COPD exacerbation CTA chest showed no evidence of pulmonary embolus and no airspace consolidation typical for pneumonia or pleural effusion. WBC trending down Procalcitonin and lactic acid normal Received Solumedrol IV 125 mg in the ER Will taper solumedrol to prednisone 40mg daily Continue neb treatment and guaifenesin Continue Advair 500/50 mcg Continue oxygen supplement Received Levaquin 750 mg in the ER Blood cx no growth No further abx Continue monitor closely Elevated WBC Possible related to outpatient steroid Procalcitonin and lactic acid normal Blood cx no growth WBC trending down to normal Received Levaquin in the ER Hold additional abx for now Continue monitor Hypokalemia Stable Continue monitor BMP Elevated troponin Possible related to hypoxia Denies any chest pain EKG showed no ischemic changes Troponin trending down Continue monitor in tele Elevated CK level CK on admission 382 CK today above 500 Received IVF Check level in am Hypertension BP stable Continue monitor BP Chronic left lower extremity venous stasis dermatitis Continue topical steroid use Wound care on board DVT px On lovenox subq CODE STATUS DNR Disposition Continue monitor in tele Current Inpatient Medications: Current Inpatient Medications Medications (Trade) Dose Ordered Sig/Kenna Route Start Time Stop Time Status Last Admin Dose Admin Enoxaparin Sodium (Lovenox Inj) 40 mg DAILY@2100 SC 03/14/18 21:00 04/13/18 20:59 03/15/18 20:24 40 MG Acetaminophen (Tylenol Tab) 650 mg Q4H PRN PO 03/14/18 18:00 04/13/18 17:59 Ioversol (Optiray 320) 111 ml UD PRN IV 03/14/18 18:15 03/18/18 18:14 Guaifenesin (Mucinex Contr Rel Tab) 600 mg Q12 PO 03/14/18 21:00 04/13/18 20:59 03/16/18 07:39 600 MG Vitamin B Complex (Vitamin B Complex) 1 tab DAILY PO 03/15/18 09:00 04/14/18 08:59 03/16/18 07:39 1 TAB Triamcinolone Acetonide (Kenalog 0.1% Cream) 1 appln BID EXT 03/14/18 21:00 04/13/18 20:59 03/16/18 07:39 1 APPLN Salmeterol Xinafoate/ Fluticasone (Advair Diskus 500/50 Inh) 1 puff BID INH 03/14/18 21:00 04/13/18 20:59 03/16/18 07:39 1 PUFF Ipratropium [place] (Atrovent 0.02% 0.5MG/2.5ML Neb) 0.5 mg Q4R INH 03/14/18 20:00 04/13/18 19:59 03/16/18 11:06 0.5 MG Levalbuterol (Xopenex 0.63 Mg/ 3 Ml Neb) 0.63 mg Q4R INH 03/14/18 20:00 04/13/18 19:59 03/16/18 11:06 0.63 MG Methylprednisolone Sodium Succinate 40 mg/Syringe 0.64 ml @ 1.5 mls/min Q12 IV 03/15/18 21:00 04/13/18 21:59 03/16/18 10:02 1.5 MLS/MIN Sodium Chloride ([place] Nasal [place]) 1 sprays PRN PRN NA 03/15/18 13:30 04/14/18 13:29 Sodium Chloride 500 ml @ 70 mls/hr Q7H9M IV 03/16/18 08:45 03/16/18 15:53 03/16/18 10:02 70 MLS/HR
[2018-03-16] MEDS: NYSTATIN SUSP 500,000 U/5 ML UDC PO SCH ×2 (16:13→21:34)
[2018-03-16] MEDS: NYSTATIN POWDER 15GM BTL EXT SCH (21:33)
[2018-03-16] MEDS: ENOXAPARIN 40 MG/0.4 ML SYR SC SCH (21:33)
[2018-03-17] VITALS (8 sets, daily range): BP systolic 164–187; BP diastolic 87–105; PULSE 73–85; TEMP 36.5–37; O2SAT 91–96
[2018-03-17] MEDS: LEVALBUTEROL 0.63MG/3 ML NEB INH SCH ×2 (03:07→06:52)
[2018-03-17] MEDS: IPRATROPIUM BROMIDE NEB SOLN 0.02% 2.5 ML VIAL INH SCH ×2 (03:07→06:52)
[2018-03-17 06:22] LABS: HEMATOCRIT 42.1 % (37-47); HEMOGLOBIN 14.2 g/dL (12.0-16.0); MEAN CELL VOLUME 87.7 fL (80-100); MEAN CORPUSCULAR HEMOGLOBIN 29.6 pg (25-34); MEAN CORPUSCULAR HGB CONC 33.7 g/dl (32-36); MEAN PLATELET VOLUME 12.9 fL (7.4-10.4); PLATELET COUNT 233 K/uL (130-400); RED CELL DISTRIBUTION WIDTH CV 14.5 % (11.5-14.5); WHITE BLOOD COUNT 13.52 K/uL (4.8-10.8)
[2018-03-17 06:50] LABS: CREATININE 0.98 mg/dl (0.60-1.20)
[2018-03-17] MEDS: NYSTATIN SUSP 500,000 U/5 ML UDC PO SCH ×4 (08:30→20:29)
[2018-03-17] MEDS: VITAMIN B COMPLEX TAB PO SCH (08:30)
[2018-03-17] MEDS: FLUTICASONE/SALMETEROL (ADVAIR) 500/50 INH 14 PUFF INH SCH ×2 (08:30→20:27)
[2018-03-17] MEDS: TRIAMCINOLONE ACET 0.1% CR 15 GM TUBE EXT SCH ×2 (08:30→20:28)
[2018-03-17] MEDS: GUAIFENESIN 600 MG TABCR PO SCH ×2 (08:30→20:31)
[2018-03-17] MEDS: NYSTATIN POWDER 15GM BTL EXT SCH ×2 (08:31→20:27)
[2018-03-17] MEDS ORDERED: IPRATROPIUM BROMIDE NEB SOLN 0.02% 2.5 ML VIAL INH PRN (09:15)
[2018-03-17] MEDS ORDERED: HydrALAZINE HCL 20 MG/ML VIAL IV. PRN (09:15)
[2018-03-17] MEDS ORDERED: AMLODIPINE BESYLATE 5 MG TAB PO ONE (12:05)
[2018-03-17] MEDS: IPRATROPIUM BROMIDE/ALBUTEROL respimat INH INH SCH ×3 (13:10→20:27)
--- NOTE | 2018-03-17 18:26 | Progress Note ---
Medicine Progress Note Date & Time of Visit: Mar 17, 2018 at 18:13. Subjective Pt was seen and examined Sitting in bed with no distress eating dinner BP has been elevated Breathing seems to get better Pt said that she does get tired easily with minimal exertion She interested to go to [facility] for rehab Denies any chest pain, palpitation and dizziness Objective Last 8 Hrs Date Time Temp Pulse Resp B/P (MAP) Pulse Ox O2 Delivery O2 Flow Rate FiO2 03/17/18 16:01 85 18 91 Nasal Cannula 3.0 03/17/18 15:07 36.6 76 20 187/105 (132) 93 Nasal Cannula 3.0 03/17/18 11:42 37.0 77 20 170/93 (118) 94 Nasal Cannula 3.0 175/90 (118) Physical Exam: General- No acute distress Head- atraumatic Eyes- PERRL, EOMI ENT- oropharynx clear Neck- no JVD Lungs- No wheezing Heart- regular rhythm Abdomen- normal bowel sounds, soft Extremities- No calf tenderness, LLE erythema with superficial dry skin abrasion Neuro- alert, oriented x 3; PERRL, EOMI; no facial palsy; no dysarthria Laboratory Results: Last 24 Hours Test 03/17/18 05:34 White Blood Count 13.52 K/uL Red Blood Count 4.80 M/uL Hemoglobin 14.2 g/dL Hematocrit 42.1 % Mean Corpuscular Volume 87.7 fL Mean Corpuscular Hemoglobin 29.6 pg Mean Corpuscular Hemoglobin Concent 33.7 g/dl RDW Standard Deviation 47.0 fL RDW Coefficient of Variation 14.5 % Platelet Count 233 K/uL Mean Platelet Volume 12.9 fL Creatinine 0.98 mg/dl Est Creatinine Clear Calc Drug Dose 53.2 ml/min Estimated GFR () 66.3 Estimated GFR (Non- 57.2 Assessment & Plan Acute on chronic hypoxic respiratory failure COPD exacerbation CTA chest showed no evidence of pulmonary embolus and no airspace consolidation typical for pneumonia or pleural effusion. WBC trending down Procalcitonin and lactic acid normal Received Solumedrol IV 125 mg in the ER Continue prednisone 40mg daily Continue neb treatment and guaifenesin Continue Advair 500/50 mcg Continue oxygen supplement Received Levaquin 750 mg in the ER Blood cx no growth No further abx Continue monitor closely Elevated WBC Possible related to outpatient steroid Procalcitonin and lactic acid normal Blood cx no growth WBC trending down to normal Received Levaquin in the ER No additional abx given Continue monitor Hypokalemia Stable Continue monitor BMP Elevated troponin Possible related to hypoxia Denies any chest pain EKG showed no ischemic changes Troponin trending down Continue monitor in tele Ambulatory dysfunction PT/OT Fall precaution Interested to go to [facility] for rehab Elevated CK level CK on admission 382 CK today above 500 Received IVF Check level in am Hypertension BP elevated amlodipine 2.5 mg adding Continue hydralazine PRN Continue monitor BP Chronic left lower extremity venous stasis dermatitis Continue topical steroid use Wound care on board DVT px On lovenox subq CODE STATUS DNR Disposition Continue monitor in tele Current Inpatient Medications: Current Inpatient Medications Medications (Trade) Dose Ordered Sig/Kenna Route Start Time Stop Time Status Last Admin Dose Admin Enoxaparin Sodium (Lovenox Inj) 40 mg DAILY@2100 SC 03/14/18 21:00 04/13/18 20:59 03/16/18 21:33 40 MG Acetaminophen (Tylenol Tab) 650 mg Q4H PRN PO 03/14/18 18:00 04/13/18 17:59 Ioversol (Optiray 320) 111 ml UD PRN IV 03/14/18 18:15 03/18/18 18:14 Guaifenesin (Mucinex Contr Rel Tab) 600 mg Q12 PO 03/14/18 21:00 04/13/18 20:59 03/17/18 08:30 600 MG Vitamin B Complex (Vitamin B Complex) 1 tab DAILY PO 03/15/18 09:00 04/14/18 08:59 03/17/18 08:30 1 TAB Triamcinolone Acetonide (Kenalog 0.1% Cream) 1 appln BID EXT 03/14/18 21:00 04/13/18 20:59 03/17/18 08:30 1 APPLN Salmeterol Xinafoate/ Fluticasone (Advair Diskus 500/50 Inh) 1 puff BID INH 03/14/18 21:00 04/13/18 20:59 03/17/18 08:30 1 PUFF Sodium Chloride ([place] Nasal [place]) 1 sprays PRN PRN NA 03/15/18 13:30 04/14/18 13:29 Prednisone (PredniSONE TAB) 40 mg DAILY PO 03/17/18 09:00 03/21/18 08:59 03/17/18 08:30 40 MG Nystatin (Mycostatin Powder) 1 appln BID EXT 03/16/18 21:00 04/15/18 20:59 03/17/18 08:31 1 APPLN Nystatin (Mycostatin Susp) 5 ml QID PO 03/16/18 17:00 04/15/18 16:59 03/17/18 16:16 5 ML Ipratropium [place] (Atrovent 0.02% 0.5MG/2.5ML Neb) 0.5 mg Q4R PRN INH 03/17/18 09:15 04/13/18 19:59 03/17/18 16:01 0.5 MG Hydralazine HCl (HydrALAZINE INJ) 5 mg Q6H PRN IV. 03/17/18 09:15 04/16/18 09:14 Albuterol/ Ipratropium (Combivent Respimat Inh) 1 puffs Q4 INH 03/17/18 12:00 04/16/18 11:59 03/17/18 13:10 1 PUFFS Amlodipine Besylate (Norvasc Tab) 2.5 mg QAM PO 03/18/18 09:00 04/17/18 08:59
[2018-03-17] MEDS ORDERED: ALBUTEROL HFA 8 GM INHALER INH PRN (18:30)
[2018-03-17] MEDS: ENOXAPARIN 40 MG/0.4 ML SYR SC SCH (20:31)
[2018-03-18] VITALS (9 sets, daily range): BP systolic 158–188; BP diastolic 80–106; PULSE 65–90; TEMP 36.3–36.6; O2SAT 91–97
[2018-03-18] MEDS: IPRATROPIUM BROMIDE/ALBUTEROL respimat INH INH SCH ×7 (04:23→23:59)
[2018-03-18] MEDS: FLUTICASONE/SALMETEROL (ADVAIR) 500/50 INH 14 PUFF INH SCH ×2 (08:54→20:15)
[2018-03-18] MEDS: NYSTATIN SUSP 500,000 U/5 ML UDC PO SCH ×4 (08:54→20:16)
[2018-03-18] MEDS: VITAMIN B COMPLEX TAB PO SCH (08:55)
[2018-03-18] MEDS: GUAIFENESIN 600 MG TABCR PO SCH ×2 (08:56→20:16)
[2018-03-18] MEDS: NYSTATIN POWDER 15GM BTL EXT SCH ×2 (08:57→20:15)
[2018-03-18] MEDS: TRIAMCINOLONE ACET 0.1% CR 15 GM TUBE EXT SCH ×2 (08:58→20:14)
[2018-03-18] MEDS ORDERED: AMLODIPINE BESYLATE 5 MG TAB PO SCH (09:00)
--- NOTE | 2018-03-18 18:20 | Progress Note ---
Medicine Progress Note Date & Time of Visit: Mar 18, 2018 at 18:15. Subjective Pt was seen and examined Sitting in bed with no distress Pt said that her breathing feels much better She participated in therapy today Denies any chest pain, palpitation, dizziness and fever Objective Last 8 Hrs Date Time Temp Pulse Resp B/P (MAP) Pulse Ox O2 Delivery O2 Flow Rate FiO2 03/18/18 16:20 160/80 (106) 03/18/18 16:08 36.4 78 20 188/106 (133) 94 Nasal Cannula 3.0 03/18/18 16:00 93 Nasal Cannula 3.0 03/18/18 12:20 36.4 74 20 172/87 (115) 93 Nasal Cannula 3.0 Physical Exam: General- No acute distress Head- atraumatic Eyes- PERRL, EOMI ENT- oropharynx clear Neck- no JVD Lungs- No wheezing Heart- regular rhythm Abdomen- normal bowel sounds, soft Extremities- No calf tenderness, LLE erythema with superficial dry skin abrasion Neuro- alert, oriented x 3; PERRL, EOMI; no facial palsy; no dysarthria Laboratory Results: Last 24 Hours Test 03/18/18 06:50 Total Creatine Kinase 153 U/L Assessment & Plan Acute on chronic hypoxic respiratory failure COPD exacerbation CTA chest showed no evidence of pulmonary embolus and no airspace consolidation typical for pneumonia or pleural effusion. WBC trending down Procalcitonin and lactic acid normal Received Solumedrol IV 125 mg in the ER Continue prednisone 40mg daily Continue neb treatment and guaifenesin Continue Advair 500/50 mcg Continue oxygen supplement Received Levaquin 750 mg in the ER Blood cx no growth No further abx Continue monitor closely Clinically improved Elevated WBC Mostly related to steroid Procalcitonin and lactic acid normal Blood cx no growth Received Levaquin in the ER No additional abx given Continue monitor Hypokalemia Stable Continue monitor BMP Elevated troponin Possible related to hypoxia Denies any chest pain EKG showed no ischemic changes Troponin trending down Continue monitor in tele Ambulatory dysfunction PT/OT Fall precaution Will benefit from PT/OT Waiting for placement to rehab Elevated CK level CK on admission 382 CK today back to normal at 150 Resolved Hypertension BP check manually was 142/90 Will increase amlodipine to 5 mg Continue hydralazine PRN Continue monitor BP Chronic left lower extremity venous stasis dermatitis Continue topical steroid use Wound care on board DVT px On lovenox subq CODE STATUS DNR Disposition Continue monitor in tele Current Inpatient Medications: Current Inpatient Medications Medications (Trade) Dose Ordered Sig/Kenna Route Start Time Stop Time Status Last Admin Dose Admin Enoxaparin Sodium (Lovenox Inj) 40 mg DAILY@2100 SC 03/14/18 21:00 04/13/18 20:59 03/17/18 20:31 40 MG Acetaminophen (Tylenol Tab) 650 mg Q4H PRN PO 03/14/18 18:00 04/13/18 17:59 Guaifenesin (Mucinex Contr Rel Tab) 600 mg Q12 PO 03/14/18 21:00 04/13/18 20:59 03/17/18 08:30 600 MG Vitamin B Complex (Vitamin B Complex) 1 tab DAILY PO 03/15/18 09:00 04/14/18 08:59 03/18/18 08:55 1 TAB Triamcinolone Acetonide (Kenalog 0.1% Cream) 1 appln BID EXT 03/14/18 21:00 04/13/18 20:59 03/18/18 08:58 1 APPLN Salmeterol Xinafoate/ Fluticasone (Advair Diskus 500/50 Inh) 1 puff BID INH 03/14/18 21:00 04/13/18 20:59 03/18/18 08:54 1 PUFF Sodium Chloride ([place] Nasal [place]) 1 sprays PRN PRN NA 03/15/18 13:30 04/14/18 13:29 Prednisone (PredniSONE TAB) 40 mg DAILY PO 03/17/18 09:00 03/21/18 08:59 03/18/18 08:56 40 MG Nystatin (Mycostatin Powder) 1 appln BID EXT 03/16/18 21:00 04/15/18 20:59 03/18/18 08:57 1 APPLN Nystatin (Mycostatin Susp) 5 ml QID PO 03/16/18 17:00 04/15/18 16:59 03/18/18 16:22 5 ML Ipratropium [place] (Atrovent 0.02% 0.5MG/2.5ML Neb) 0.5 mg Q4R PRN INH 03/17/18 09:15 04/13/18 19:59 03/17/18 16:01 0.5 MG Hydralazine HCl (HydrALAZINE INJ) 5 mg Q6H PRN IV. 03/17/18 09:15 04/16/18 09:14 Albuterol/ Ipratropium (Combivent Respimat Inh) 1 puffs Q4 INH 03/17/18 12:00 04/16/18 11:59 03/18/18 16:21 1 PUFFS Amlodipine Besylate (Norvasc Tab) 2.5 mg QAM PO 03/18/18 09:00 04/17/18 08:59 03/18/18 11:01 2.5 MG Albuterol (Ventolin Hfa Inhaler) 2 puffs Q4 PRN INH 03/17/18 18:30 04/16/18 18:29
[2018-03-18] MEDS: ENOXAPARIN 40 MG/0.4 ML SYR SC SCH (20:16)
[2018-03-19] MEDS: IPRATROPIUM BROMIDE/ALBUTEROL respimat INH INH SCH ×4 (03:58→16:14)
[2018-03-19 04:12] VITALS: BP 142/74; PULSE 70; TEMP 36.7; O2SAT 92
[2018-03-19] MEDS ORDERED: COUGH DROP (SUGAR FREE) LOZ 24 LOZ/1 BOX LOZ ONE (06:16)
[2018-03-19 06:42] VITALS: BP 168/78; PULSE 70; TEMP 36.8; O2SAT 98
[2018-03-19] MEDS: VITAMIN B COMPLEX TAB PO SCH (07:57)
[2018-03-19] MEDS: GUAIFENESIN 600 MG TABCR PO SCH (07:58)
[2018-03-19] MEDS: NYSTATIN SUSP 500,000 U/5 ML UDC PO SCH ×3 (07:58→16:14)
[2018-03-19] MEDS: FLUTICASONE/SALMETEROL (ADVAIR) 500/50 INH 14 PUFF INH SCH (07:59)
[2018-03-19] MEDS: NYSTATIN POWDER 15GM BTL EXT SCH (07:59)
[2018-03-19] MEDS: TRIAMCINOLONE ACET 0.1% CR 15 GM TUBE EXT SCH (08:00)
[2018-03-19] MEDS ORDERED: AMLODIPINE BESYLATE 5 MG TAB PO SCH (09:00)
--- NOTE | 2018-03-19 09:34 | Progress Note ---
Medicine Progress Note Date & Time of Visit: Mar 19, 2018 at 09:30. Subjective Pt was seen and examined Lying in bed with no distress Very pleasant She said that she feel fine She said that she is getting stronger Denies and chest pain, palpitation, dizziness and fever Objective Last 8 Hrs Date Time Temp Pulse Resp B/P (MAP) Pulse Ox O2 Delivery O2 Flow Rate FiO2 03/19/18 08:00 Nasal Cannula 3.0 03/19/18 06:42 36.8 70 22 168/78 (108) 98 Nasal Cannula 3.0 03/19/18 04:12 36.7 70 20 142/74 (96) 92 Room Air Physical Exam: General- No acute distress Head- atraumatic Eyes- PERRL, EOMI ENT- oropharynx clear Neck- no JVD Lungs- No wheezing Heart- regular rhythm Abdomen- normal bowel sounds, soft Extremities- No calf tenderness, LLE erythema with superficial dry skin abrasion Neuro- alert, oriented x 3; PERRL, EOMI; no facial palsy; no dysarthria Assessment & Plan Acute on chronic hypoxic respiratory failure COPD exacerbation CTA chest showed no evidence of pulmonary embolus and no airspace consolidation typical for pneumonia or pleural effusion. Procalcitonin and lactic acid normal Received Solumedrol IV 125 mg in the ER Continue prednisone 40mg daily Continue neb treatment and guaifenesin Continue Advair 500/50 mcg Continue oxygen supplement Received Levaquin 750 mg in the ER Blood cx no growth No further abx Continue monitor closely Clinically improved Elevated WBC Mostly related to steroid Procalcitonin and lactic acid normal Blood cx no growth Received Levaquin in the ER No additional abx given Stable Hypokalemia Stable Continue monitor BMP Elevated troponin Possible related to hypoxia Denies any chest pain EKG showed no ischemic changes Troponin trending down Continue monitor in tele Ambulatory dysfunction PT/OT Fall precaution Will benefit from PT/OT Waiting for placement to rehab Elevated CK level CK on admission 382 CK today back to normal at 150 Resolved Hypertension BP check manually was 142/90 Will increase amlodipine to 5 mg Continue hydralazine PRN Continue monitor BP Chronic left lower extremity venous stasis dermatitis Continue topical steroid use Wound care on board DVT px On lovenox subq CODE STATUS DNR Disposition Stable to discharge to rehab Current Inpatient Medications: Current Inpatient Medications Medications (Trade) Dose Ordered Sig/Kenna Route Start Time Stop Time Status Last Admin Dose Admin Enoxaparin Sodium (Lovenox Inj) 40 mg DAILY@2100 SC 03/14/18 21:00 04/13/18 20:59 03/18/18 20:16 40 MG Acetaminophen (Tylenol Tab) 650 mg Q4H PRN PO 03/14/18 18:00 04/13/18 17:59 Guaifenesin (Mucinex Contr Rel Tab) 600 mg Q12 PO 03/14/18 21:00 04/13/18 20:59 03/17/18 08:30 600 MG Vitamin B Complex (Vitamin B Complex) 1 tab DAILY PO 03/15/18 09:00 04/14/18 08:59 03/19/18 07:57 1 TAB Triamcinolone Acetonide (Kenalog 0.1% Cream) 1 appln BID EXT 03/14/18 21:00 04/13/18 20:59 03/19/18 08:00 1 APPLN Salmeterol Xinafoate/ Fluticasone (Advair Diskus 500/50 Inh) 1 puff BID INH 03/14/18 21:00 04/13/18 20:59 03/19/18 07:59 1 PUFF Sodium Chloride ([place] Nasal [place]) 1 sprays PRN PRN NA 03/15/18 13:30 04/14/18 13:29 Prednisone (PredniSONE TAB) 40 mg DAILY PO 03/17/18 09:00 03/21/18 08:59 03/19/18 07:57 40 MG Nystatin (Mycostatin Powder) 1 appln BID EXT 03/16/18 21:00 04/15/18 20:59 03/19/18 07:59 1 APPLN Nystatin (Mycostatin Susp) 5 ml QID PO 03/16/18 17:00 04/15/18 16:59 03/19/18 07:58 5 ML Ipratropium [place] (Atrovent 0.02% 0.5MG/2.5ML Neb) 0.5 mg Q4R PRN INH 03/17/18 09:15 04/13/18 19:59 03/17/18 16:01 0.5 MG Hydralazine HCl (HydrALAZINE INJ) 5 mg Q6H PRN IV. 03/17/18 09:15 04/16/18 09:14 Albuterol/ Ipratropium (Combivent Respimat Inh) 1 puffs Q4 INH 03/17/18 12:00 04/16/18 11:59 03/19/18 08:00 1 PUFFS Albuterol (Ventolin Hfa Inhaler) 2 puffs Q4 PRN INH 03/17/18 18:30 04/16/18 18:29 03/19/18 08:01 2 PUFFS Amlodipine Besylate (Norvasc Tab) 5 mg QAM PO 03/19/18 09:00 04/18/18 08:59 03/19/18 07:57 5 MG
[2018-03-19 11:02] VITALS: BP 175/98; PULSE 76; TEMP 36.4; O2SAT 92
[2018-03-19 15:47] VITALS: BP 146/94; PULSE 87; TEMP 36.2; O2SAT 91
[2018-03-19] MEDS ORDERED: ADVIN50050 INH (16:57)
[2018-03-19] MEDS ORDERED: NRV5 PO (16:57)
[2018-03-19] MEDS ORDERED: NYSS5 PO (16:57)
--- NOTE | 2018-03-19 17:02 | Discharge Instructions ---
Discharge Instructions Date of Service Mar 19, 2018. Admission Reason for Admission: Copd Exacerbation Discharge Discharge Diagnosis / Problem: COPD exarcebation, Acute on chronic hypoxic respiratory failure Discharge Goals Goal(s): Decrease discomfort, Improve function, Improve disease control Activity Recommendations Activity Limitations: resume your previous activity (As tolerated ) . Instructions / Follow-Up Instructions / Follow-Up Follow up with your primary care provider Dr. Carr on 03/26 @ 12:45 AM Continue oxygen supplement Monitor your blood pressure Fall precaution (use your walker to ambulate) Script given for walker Continue physical and occupational therapy Rinse your mouth after using the Advair inhaler Current Hospital Diet Patient's current hospital diet: AHA Diet (Heart Healthy) Discharge Diet Recommended Diet: AHA Diet (Heart Healthy) Pending Studies Studies pending at discharge: no Laboratory Results Hemoglobin A1c Test 03/16/18 06:47 Range/Units Estimated Average Glucose 128 mg/dl Hemoglobin A1c 6.1 H 4.5-5.6 % Medical Emergencies . Who to Call and When: Medical Emergencies: If at any time you feel your situation is an emergency, please call 911 immediately. . Non-Emergent Contact Non-Emergency issues call your: Primary Care Provider Call Non-Emergent contact if: you have any medication questions . . "Provider Documentation" section prepared by Jennifer Bowens. .
[2018-03-19 17:17] VITALS: BP 146/94; PULSE 87; TEMP 36.2; O2SAT 91
--- NOTE | 2018-03-19 17:24 | Discharge Summary ---
Discharge Summary Date of Service Mar 19, 2018. Discharge Summary Admission Date: Mar 14, 2018 at 17:59 Discharge Date: Mar 19, 2018 Discharge Disposition: Home with services Principal Diagnosis: Acute on chronic hypoxic respiratory failure Secondary Diagnoses/Problems: COPD exacerbation Elevated WBC Hypokalemia Elevated CK Elevated troponin Ambulatory dysfunction Chronic left lower extremity venous stasis dermatitis HTN Procedures: CT ANGIOGRAM OF THE CHEST CLINICAL HISTORY: Tachycardia. COPD. COMPARISON STUDY: Chest x-ray dated 03/14/2018. TECHNIQUE: Following the IV administration of 117 cc of Optiray 320, CT angiogram of the chest was performed from the upper abdomen to the thoracic inlet utilizing the pulmonary embolus protocol. Images are reviewed in the axial, sagittal, and coronal planes. 3-D MIPS images are created and assessed. IV contrast was administered without complication. A dose lowering technique was utilized adhering to the principles of ALARA. The examination is degraded by motion artifact. CT DOSE: 472.75 mGy.cm FINDINGS: Thyroid: Imaged portions of the thyroid gland are normal in size and attenuation. Thoracic aorta: The thoracic aorta is normal in caliber and demonstrates standard 3-vessel arch anatomy. No dissection is seen. Pulmonary vasculature: The main pulmonary arteries are dilated indicating pulmonary artery hypertension. There are no filling defects identified in main, lobar, or segmental pulmonary branches to suggest pulmonary embolus. Although a subsegmental pulmonary vessel extends to the nodule in the right lower lung there is no clear intraluminal filling defect to confirm the presence of pulmonary embolus. Heart: The heart is enlarged and without pericardial effusion. The coronary arteries are densely calcified. Lungs and pleural spaces: Advanced emphysematous change is identified. There is no airspace consolidation typical for pneumonia or pleural effusion. The trachea and central airways are clear. There is a 1.6 x 1.0 cm irregular low-attenuation nodule in the subpleural right lower lobe seen on image #109. A 4 mm nodule in the right lower lobe as seen on image #125. A tiny fat-containing Bochdalek hernia is noted at the left lung base. Mediastinum: There is no mediastinal lymphadenopathy. Meryl: Clear. Axillae: There is no axillary lymphadenopathy. Upper abdomen: There are large calcified gallstones. A small hiatal hernia is noted. Skeletal structures: The skeletal structures are osteopenic. No lytic or blastic bony lesions are seen. There are healed bilateral anterior rib fractures. There is a mild age-indeterminate superior end plate compression deformity of T5. Mild degenerative changes noted throughout the thoracic spine. Advanced degenerative changes noted in the left shoulder.. IMPRESSION: 1. There is no evidence of pulmonary embolus in the main, lobar, or segmental pulmonary arteries. 2. Cardiomegaly and advanced emphysema with evidence of pulmonary artery hypertension. 3. There is no airspace consolidation typical for pneumonia or pleural effusion. 4. There is a 1.6 cm irregular low-attenuation nodule at the right lung base. This is pathologically indeterminant and neoplasm is to be excluded. A 1-2 month follow-up chest CT is recommended for reassessment. 5. Cholelithiasis. 6. Additional findings as above. Electronically signed by: Bogdan Graham M.D. 03/14/2018 8:35 PM Dictated Date/Time: 03/14/2018 8:24 PM SINGLE VIEW CHEST CLINICAL HISTORY: Atypical chest pain. FINDINGS: An AP, portable, upright chest radiograph is obtained. No prior studies are available for comparison at the time of dictation. The examination is degraded by portable technique and patient rotation. The heart is mildly enlarged and there is atherosclerotic calcification of the thoracic aorta. Enlargement of the central pulmonary arteries suggests pulmonary artery hypertension. There is prominence of the central pulmonary vasculature. Patchy airspace opacities are present at both lung bases. Nonspecific interstitial thickening is likely chronic. No large pleural effusion or pneumothorax is seen. The skeletal structures are osteopenic. The bony thorax is grossly intact. IMPRESSION: 1. Cardiomegaly with prominence of the central pulmonary vessels. Correlate clinically for evidence of mild congestive failure. 2. There are bibasilar airspace opacities. This could represent atelectasis versus an infectious/inflammatory pneumonitis. Clinical correlation will be required and radiographic follow-up to resolution is recommended. Electronically signed by: Bogdan Graham M.D. 03/14/2018 4:02 PM Dictated Date/Time: 03/14/2018 4:00 PM Medication Reconciliation New Medications: Amlodipine Besylate (Amlodipine Besylate) 5 Mg Tab 5 MG PO QAM for 30 Days, #30 TAB Fluticasone Prop/Salmeterol (Advair Diskus 500-50 Mcg/Dose) 14 Puff/1 Inhaler Aerp 1 PUFF INH BID for 30 Days Nystatin (Nystatin) 5 Ml Susp 5 ML PO QID for 5 Days Continued Medications: Albuterol Hfa (Ventolin Hfa) 200 Puffs/00442 Mcg Aers 2 PUFFS INH Q4 PRN for SOB/Wheezing, #1 INHALER B-Complex Vitamins (B Complex) 1 Cap Cap Ipratropium-Albuterol (Combivent Respimat) 1 Aer Aer 1 PUFFS INH Q4, INH Prednisone (Prednisone) 20 Mg Tab 40 MG PO DAILY, TAB Triamcinolone Acet (Aristocort 0.1%) 90 Appln/30 Gm Cr 1 APPLN TOP BID Discontinued Medications: Fluticasone Prop/Salmeterol (Advair Diskus 250/50 60 Dose) 1 Ea Aerp 1 PUFF INH BID, INHALER Admission Information HPI (per Admitting provider): This is a 72-year-old white female, Jehovah witness, who has a significant past medical history of COPD-chronic bronchitis type with O2 dependence 3L, right pulmonary nodule, HTN, left lower extremity venous stasis dermatitis who presents to [facility] secondary to worsening shortness of breath 2 weeks. Over the past 2 weeks her shortness of breath has gotten progressively worse, complains of cough productive of thick purulent sputum. Initially cough was moist but unable to produce; however now productive. Complains of dyspnea on exertion, decreased appetite, chronic dry mouth, sweats. She has tried nothing [id number] for cough relief. She did have a rescue prednisone pack in which she started, unsure what day she started it, but has been taking 40 mg daily with no relief. Denies documented fever, chills , lightheadedness, dizziness, chest pain, palpitations, hemoptysis, nausea, vomiting, diarrhea, UTI symptoms. Upon initial evaluation patient was noted to be hypoxic on 3 L via nasal cannula. O2 increased to 6 L Via Oxymizer mask with improvement of oxygenation. Patient remains tachycardic. In ED was given 125 mg methylprednisolone, 750 mg IV Levaquin, 324 mg aspirin, albuterol breathing treatment. She is now saturating at 90-92% on 6 L oxymask. Lab work revealed leukocytosis with white blood cell count 11.48, hemoglobin 16.3, hematocrit 44.9, platelet 190, sodium 129, potassium 3.4, BUN 15, creatinine 0.93, glucose 127, elevated troponin 0.219, CK 382. EKG revealed sinus tachycardia with 160 bpm, no ST-T wave abnormalities. Patient will be admitted for COPD exacerbation with acute on chronic hypoxic respiratory failure, hypokalemia and leukocytosis. Physical Exam (per Admitting): General Appearance: + obese (female, currently in no distress, poorly groomed, easily converses) Head: normocephalic, atraumatic Eyes: normal inspection, sclerae normal ENT: hearing grossly normal, pharynx normal, + pertinent finding (mucous membrane dry, teeth absent) Neck: supple, no adenopathy, thyroid normal, no JVD, no carotid bruits Respiratory/Chest: chest non-tender, lungs clear, normal breath sounds, no respiratory distress, no accessory muscle use Cardiovascular: + tachycardia (regular rhythm, 1/6 TEO heard best RUSB), + systolic murmur Abdomen/GI: normal bowel sounds, non tender, soft, + distended (secondary to obesity) Back: normal inspection, no muscle spasm, normal range of motion Extremities/Musculoskelatal: normal inspection, no calf tenderness, normal capillary refill 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 Procalcitonin and lactic acid normal Received Solumedrol IV 125 mg in the ER Continue prednisone 40mg daily Continue neb treatment and guaifenesin Continue Advair 500/50 mcg Continue oxygen supplement Received Levaquin 750 mg in the ER Blood cx no growth No further abx Continue monitor closely Clinically improved Elevated WBC Mostly related to steroid Procalcitonin and lactic acid normal Blood cx no growth Received Levaquin in the ER No additional abx given Stable Hypokalemia Stable Continue monitor BMP Elevated troponin Possible related to hypoxia Denies any chest pain EKG showed no ischemic changes Troponin trending down Continue monitor in tele Ambulatory dysfunction PT/OT Fall precaution Will benefit from PT/OT Waiting for placement to rehab Elevated CK level CK on admission 382 CK today back to normal at 150 Resolved Hypertension BP check manually was 142/90 Will increase amlodipine to 5 mg Continue hydralazine PRN Continue monitor BP Chronic left lower extremity venous stasis dermatitis Continue topical steroid use Wound care on board DVT px On lovenox subq CODE STATUS DNR Disposition Stable to discharge to rehab Total time spent on discharge = 35 minutes This includes examination of the patient, discharge planning, medication reconciliation, and communication with other providers. Discharge Instructions Discharge Instructions Date of Service Mar 19, 2018. Admission Reason for Admission: Copd Exacerbation Discharge Discharge Diagnosis / Problem: COPD exarcebation, Acute on chronic hypoxic respiratory failure Discharge Goals Goal(s): Decrease discomfort, Improve function, Improve disease control Activity Recommendations Activity Limitations: resume your previous activity (As tolerated ) . Instructions / Follow-Up Instructions / Follow-Up Follow up with your primary care provider Dr. Carr on 03/26 @ 12:45 AM Continue oxygen supplement Monitor your blood pressure Fall precaution (use your walker to ambulate) Script given for walker Continue physical and occupational therapy Rinse your mouth after using the Advair inhaler Current Hospital Diet Patient's current hospital diet: AHA Diet (Heart Healthy) Discharge Diet Recommended Diet: AHA Diet (Heart Healthy) Pending Studies Studies pending at discharge: no Laboratory Results Hemoglobin A1c Test 03/16/18 06:47 Range/Units Estimated Average Glucose 128 mg/dl Hemoglobin A1c 6.1 H 4.5-5.6 % Medical Emergencies . Who to Call and When: Medical Emergencies: If at any time you feel your situation is an emergency, please call 911 immediately. . Non-Emergent Contact Non-Emergency issues call your: Primary Care Provider Call Non-Emergent contact if: you have any medication questions . . "Provider Documentation" section prepared by Jennifer Bowens. . Additional Copies To Dada Carr M.D.
== END 2018-03-19 18:41 | disposition home health service (06) | DRG 190 ==
LOC: EDBD 14:31 → C.EDA 14:32 → C.2T 17:59 → ENRESERV 18:16
PROVIDERS: ADMIT Internal Medicine; ATTEND Internal Medicine
DX: J44.1 Chronic obstructive pulmonary disease with (acute) exacerbation (principal); J96.21 Acute and chronic respiratory failure with hypoxia; I10 Essential (primary) hypertension; I87.8 Other specified disorders of veins; E66.9 Obesity, unspecified; E87.6 Hypokalemia; Z66 Do not resuscitate; Z79.52 Long term (current) use of systemic steroids; Z79.899 Other long term (current) drug therapy; Z99.81 Dependence on supplemental oxygen; Z68.35 Body mass index [BMI] 35.0-35.9, adult; T38.0X5A Adverse effect of glucocorticoids and synthetic analogues, initial encounter

== ENCOUNTER 2018-10-06 17:08 | Inpatient (IN) ==
[2018-10-06] MEDS ORDERED: methylPREDNISolone 60 MG in SYRINGE 1 ML IV STA (17:37)
[2018-10-06] MEDS ORDERED: LEVALBUTEROL 1.25MG/0.5ML NEB NEB STA (17:37)
[2018-10-06] MEDS ORDERED: methylPREDNISolone 125 MG/2 ML VIAL ONE (17:52)
[2018-10-06 17:58] LABS: Basophils # (auto) 0.02 K/uL (0-0.2); Basophils % (auto) 0.2 %; Eosinophils # (auto) 0.13 K/uL (0-0.5); Eosinophils % (auto) 1.2 %; Hematocrit (blood only) 43.5 % (37-47); Hemoglobin 14.7 g/dL (12.0-16.0); Immature Granulocytes # (auto) 0.07 K/uL (0.00-0.02); Immature Granulocytes % (auto) 0.6 %; Lymphocytes # (auto) 1.99 K/uL (1.2-3.4); Mean Corpuscular Hgb Conc 33.8 g/dL (32-36); Mean Corpuscular Volume 86.1 fL (80-100); Mean Platelet Volume 11.7 fL (7.4-10.4); Monocytes # (auto) 0.99 K/uL (0.11-0.59); Monocytes % (auto) 8.9 %; Neutrophils # (auto) 7.88 K/uL (1.4-6.5); Neutrophils % (auto) 71.1 %; Platelet Count 237 K/uL (130-400); RDW Coefficient of Variation 15.1 % (11.5-14.5); RDW Standard Deviation 47.5 fL (36.4-46.3); Red Blood Count 5.05 M/uL (4.2-5.4); White Blood Count 11.08 K/uL (4.8-10.8)
[2018-10-06 18:19] LABS: Alanine Aminotransferase 21 U/L (12-78); Albumin Level 3.2 gm/dl (3.4-5.0); Aspartate Aminotransferase 22 U/L (15-37); BUN Creatinine Ratio 13.9 (10-20); Blood Urea Nitrogen 10 mg/dl (7-18); Calcium 8.8 mg/dl (8.5-10.1); Carbon Dioxide 23 mmol/L (21-32); Chloride 108 mmol/L (98-107); Creatinine Clr Calc Pharmacy 72.4 ml/min; Est GFR (African American) 99.6; Glucose 97 mg/dl (70-99); Potassium 3.7 mmol/L (3.5-5.1); Sodium 140 mmol/L (136-145)
[2018-10-06 18:24] LABS: Albumin Globulin Ratio 0.8 (0.9-2); Alkaline Phosphatase 95 U/L (45-117); Bilirubin,Total 0.5 mg/dl (0.2-1); Creatine Kinase 92 U/L (26-192); Creatine Kinase MB 2.7 ng/ml (0.5-3.6); Globulin 4.1 gm/dl (2.5-4.0); NT Pro B Type Natriuretic Pept 1323 pg/ml (0-900); Total Protein 7.3 gm/dl (6.4-8.2); Troponin I < 0.015 ng/ml (0-0.045)
--- NOTE | 2018-10-06 18:33 | XRay Report ---
XR chest 1V portable CLINICAL HISTORY: Chest Pain dyspnea COMPARISON STUDY: 03/14/2018 FINDINGS: Mild cardia megaly. Chronic prominence of the pulmonary vasculature. Diaphragms smooth. Rig ht basilar interstitial change. IMPRESSION: Pulmonary vascular congestion. The above report was generated using voice recognition software. It may contain grammatical, syntax or spelling errors. Electronically signed by: Jr Heredia M.D. 10/06/2018 6:32 PM
[2018-10-06] MEDS ORDERED: FUROSEMIDE 40 MG/4 ML VIAL IV STA (18:41)
[2018-10-06] MEDS ORDERED: ALUMINUM/MAGNESIUM SUSP 30 ML UDC PO PRN (21:19)
[2018-10-06] MEDS ORDERED: XOPENEX/ATROVENT 1.25mg/0.5MG NEB COMBO NEB PRN (21:19)
[2018-10-06] MEDS ORDERED: SOD PHOSPHATE/SOD BIPHOSPHATE ENEMA 132 ML BTL PR PRN (21:19)
[2018-10-06] MEDS ORDERED: IPRATROPIUM BROMIDE NEB SOLN 0.02% 2.5 ML VIAL INH PRN (21:19)
[2018-10-06] MEDS ORDERED: ONDANSETRON INJ 2 MG/ML 2 ML VIAL IV PRN (21:19)
[2018-10-06] MEDS ORDERED: NITROGLYCERIN SL 0.4 MG/TAB TAB SL PRN (21:19)
[2018-10-06] MEDS ORDERED: LEVALBUTEROL 1.25MG/0.5ML NEB INH PRN (21:19)
[2018-10-06] MEDS ORDERED: POLYETHYLENE (MIRALAX) 17 GM PACK PO PRN (21:19)
[2018-10-06] MEDS ORDERED: ALBUTEROL HFA 8 GM INHALER INH PRN (21:19)
[2018-10-06] MEDS ORDERED: XOPENEX/ATROVENT 1.25mg/0.5MG NEB COMBO NEB SCH (21:19)
[2018-10-06] MEDS ORDERED: guaiFENesin SUGAR FREE 200 MG/10 ML UDC PO PRN (21:19)
[2018-10-06] MEDS ORDERED: BISACODYL 10 MG SUPP PR PRN (21:19)
[2018-10-06] MEDS ORDERED: CEFEPIME CONSULT ACTIVE PRN (21:27)
[2018-10-06 21:52] LABS: INR 1.1 (0.9-1.1); Prothrombin Time 11.1 Seconds (9.0-12.0)
[2018-10-06] MEDS ORDERED: MENTHOL-ZINC OXIDE 360 APPLN/120 GM TUBE EXT SCH ×2 (22:00)
[2018-10-06] MEDS: IPRATROPIUM BROMIDE NEB SOLN 0.02% 2.5 ML VIAL INH SCH (22:01)
[2018-10-06] MEDS: LEVALBUTEROL 1.25MG/0.5ML NEB INH SCH (22:01)
[2018-10-06] MEDS: FLUTICASONE/SALMETEROL 250/50 (ADVAIR) 14 PUFF/1 INHALER INH SCH (22:03)
[2018-10-06] MEDS: CEFEPIME 2,000 MG in SYRINGE 7.5 ML IV SCH (22:04)
[2018-10-06] MEDS: DOXYCYCLINE HYCLATE 100 MG CAP PO SCH ×2 (22:04→22:22)
[2018-10-06] MEDS: HEPARIN SOD 5,000 UNIT/0.5 ML VIAL SQ SCH (22:26)
--- NOTE | 2018-10-06 23:40 | Emergency Department Note ---
Entered by Shin Rogers acting as a scribe for History of Present Illness General Chief complaint: Respiratory Problems Stated complaint: ILLNESS Time Seen by Provider: 10/06/18 17:29 Source: patient Mode of arrival: EMS History of Present Illness Onset (ago): hour(s) (this morning) Location: chest (lungs) Pain Consistency: + constant Quality: + other (SOB) Exacerbated By: + other (decrease of oxygen) Associated symptoms: + denies other symptoms (abdominal pain) The patient is a 73 year old female who presents to the Emergency Room with complaints of constant shortness of breath beginning this morning. The patient states she "cannot get enough oxygen". She reports she comes from [facility] the ambulance did not give her anything for her symptoms. The patient states she is normally on 3L of oxygen, and she was tried on 2L of oxygen. She reports she was short of breath on 2L and turned it back up to 3L. The patient denies abdominal pain. She notes she recently had constipation. Home Medications Home Medications Medication Instructions Recorded Confirmed Type acetaminophen [Tylenol] 650 mg PO Q4H PRN 10/06/18 10/06/18 History albuterol sulfate [Ventolin HFA] 2 puff INHALATION DIRECTED 10/06/18 10/06/18 History albuterol sulfate [Ventolin HFA] 2 puff INHALATION Q3H PRN 10/06/18 10/06/18 History aspirin 500 mg PO QAM 10/06/18 10/06/18 History bisacodyl [Dulcolax (bisacodyl)] 10 mg [place] DIRECTED PRN 10/06/18 10/06/18 History fluticasone-salmeterol [Advair 1 ft INHALATION AMHS 10/06/18 10/06/18 History Diskus] guaifenesin [Siltussin SA] 10 ml PO Q4H PRN 10/06/18 10/06/18 History ipratropium-albuterol [Combivent 2 puff INHALATION QID PRN 10/06/18 10/06/18 History Respimat] levofloxacin [Levaquin] 500 mg PO DAILY 10/06/18 10/06/18 History lidocaine HCl-menthol [Icy 1 applic TOPICAL Q8H 10/06/18 10/06/18 History Hot(lidocaine HCl-menthol)] magnesium hydroxide [Milk of 30 ml PO DAILY PRN 10/06/18 10/06/18 History Magnesia] menthol-zinc oxide [Calmoseptine] 1 applic TOPICAL DIRECTED 10/06/18 10/06/18 History sodium phosphates [Fleet Enema] 197 ml [place] DIRECTED PRN 10/06/18 10/06/18 History vitamin B complex 1 cap PO QAM 10/06/18 10/06/18 History Allergies Allergy/AdvReac Type Severity Reaction Status Date / Time No Known Allergies Allergy Verified 10/06/18 18:01 Past Med/Surg History Medical History Chronic bronchitis (Chronic) Pulmonary nodule, right (Chronic) "last CT in 2010 revealed R lung nodule, recommended FNA or PET, patient refused further work up" HTN (hypertension) (Chronic) Venous stasis dermatitis of left lower extremity (Chronic) Obesity (BMI 35.0-39.9 without comorbidity) (Chronic) Surgical History History of tubal ligation (Resolved) History of colonoscopy (Resolved) History of D&C (Chronic) Family History Other Family history non-contributory Social History Preferred Language: [place] Citizen Geropsychologist Required: No Beliefs That Will Affect Care: Mandaeism Current Living Situation: Family Feels Safe at Home: Yes Safety Concerns: Feels Safe At This Time Smoking Status: Former smoker Hx Alcohol Use: No Hx Substance Use: No Review of Systems See HPI for pertinent positives & negatives. and A total of 10 systems reviewed and were otherwise negative Physical Exam Vital Signs Vital Signs - 24 hr 10/06/18 17:20 10/06/18 19:00 10/06/18 19:01 Temperature 36.7 C Temperature Source Oral Sepsis Recent Fever Within 48 Hours No Sepsis Action Taken by Nursing No Action Required Pulse Rate 99 H Pulse Rate [Left] 99 H Pulse Rate from SpO2 Sensor 99 H Respiratory Rate 20 29 H 20 Respiratory Effort / Characteristics Non-Labored Non-Labored Respiratory Depth Normal Normal Respiratory Pattern Blood Pressure 157/39 H Blood Pressure [Left Arm] 167/97 H Blood Pressure Mean 78 Blood Pressure Mean [Left Arm] 120 Pulse Oximetry 93 89 L 92 Oxygen Delivery Method Nasal Cannula Nasal Cannula Room Air Oxygen Flow Rate 3 3 10/06/18 19:25 10/06/18 19:26 10/06/18 19:30 Temperature Temperature Source Sepsis Recent Fever Within 48 Hours Sepsis Action Taken by Nursing Pulse Rate 114 H 111 H Pulse Rate [Left] Pulse Rate from SpO2 Sensor 114 H 111 H Respiratory Rate 20 27 H Respiratory Effort / Characteristics Respiratory Depth Respiratory Pattern Blood Pressure 189/128 H 163/106 H Blood Pressure [Left Arm] Blood Pressure Mean 148 125 Blood Pressure Mean [Left Arm] Pulse Oximetry 92 91 91 Oxygen Delivery Method Nasal Cannula Nasal Cannula Nasal Cannula Oxygen Flow Rate 4 4 4 10/06/18 19:31 10/06/18 20:05 10/06/18 20:30 Temperature Temperature Source Sepsis Recent Fever Within 48 Hours Sepsis Action Taken by Nursing Pulse Rate 108 H 116 H 100 H Pulse Rate [Left] Pulse Rate from SpO2 Sensor 108 H 99 H Respiratory Rate 31 H 31 H 24 Respiratory Effort / Characteristics Respiratory Depth Respiratory Pattern Blood Pressure 155/107 H Blood Pressure [Left Arm] Blood Pressure Mean 123 Blood Pressure Mean [Left Arm] Pulse Oximetry 91 89 L Oxygen Delivery Method Nasal Cannula Oxygen Flow Rate 4 10/06/18 20:31 10/06/18 20:55 10/06/18 21:12 Temperature 36.4 C L Temperature Source Oral Sepsis Recent Fever Within 48 Hours Sepsis Action Taken by Nursing Pulse Rate 96 H 97 H Pulse Rate [Left] 115 H Pulse Rate from SpO2 Sensor 95 H Respiratory Rate 25 H 23 26 H Respiratory Effort / Characteristics Short of Breath SOB on Exertion Respiratory Depth Respiratory Pattern Tachypnea Blood Pressure 155/107 H Blood Pressure [Left Arm] 180/109 H Blood Pressure Mean Blood Pressure Mean [Left Arm] 132 Pulse Oximetry 90 90 Oxygen Delivery Method Nasal Cannula Nasal Cannula Oxygen Flow Rate 4 4 10/06/18 21:15 10/06/18 22:07 10/06/18 23:16 Temperature Temperature Source Sepsis Recent Fever Within 48 Hours Sepsis Action Taken by Nursing Pulse Rate 112 H Pulse Rate [Left] 109 H Pulse Rate from SpO2 Sensor Respiratory Rate 24 Respiratory Effort / Characteristics Spontaneous Labored Short of Breath Spontaneous Respiratory Depth Normal Respiratory Pattern Regular Blood Pressure Blood Pressure [Left Arm] Blood Pressure Mean Blood Pressure Mean [Left Arm] Pulse Oximetry 90 Oxygen Delivery Method Nasal Cannula Nasal Cannula Oxygen Flow Rate 4 4 GENERAL: Awake, alert, well-appearing, in no distress HENT: Normocephalic, atraumatic. Oropharynx unremarkable. EYES: Normal conjunctiva. Sclera non-icteric. NECK: Supple. No nuchal rigidity. FROM. No masses. RESPIRATORY: Distant breath sounds. Clear to auscultation. No wheezes. No rales. Normal respiratory effort. CARDIAC: Normal rate. Normal rhythm. No murmurs. No rubs. Extremities warm and well perfused. Pulses equal. No JVD. GI: Soft, non-distended. No tenderness to palpation. No rebound or guarding. No masses. RECTAL: Deferred. MUSCULOSKELETAL: Atraumatic. Chest examination reveals no tenderness. The back is symmetrical on inspection without obvious abnormality. There is no CVA tenderness to palpation. No joint edema. LOWER EXTREMITIES: Calves are equal size bilaterally and non-tender. No edema. No discoloration. NEURO: Normal sensorium. No sensory or motor deficits noted. Course 173: Past medical records reviewed. The patient was evaluated in room A11B, and a complete history and physical examination were performed. 1850: I reevaluated the patient and discussed the findings with her. She verbalized agreement to a hospitalist evaluation and the treatment plan. The patient will be evaluated for further management and care. 1908: I reviewed the patient's case with Dr. Kwon, [facility] Hospitalist. He will evaluate the patient for further management. Administered Medications Doxycycline Hyclate (Vibramycin) 100 mg PO BID [facility] Stop: 10/13/18 22:59 Last Admin: 10/06/18 22:22 Dose: Not Given Documented by: [id number] Heparin Sodium (Porcine) (Heparin Sodium (Porcine)) 5,000 units SQ Q8 [facility] Stop: 11/05/18 21:59 Last Admin: 10/06/18 22:26 Dose: 5,000 units Documented by: [id number] Cosigned by: [id number] Cefepime HCl 2,000 mg/ Syringe 20 mls @ 5.5 mls/min IV Q12H [facility]; Protocol Stop: 10/13/18 21:59 Last Admin: 10/06/18 22:04 Dose: 5.5 mls/min Documented by: [id number] Ipratropium [place] (Atrovent 0.02% 0.5mg/2.5ml) 0.5 mg INH Q6R [facility] Stop: 11/05/18 21:59 Last Admin: 10/06/18 22:01 Dose: 0.5 mg Documented by: [id number] Levalbuterol HCl (Xopenex 1.25mg/0.5ml Neb) 1.25 mg INH Q6R [facility] Stop: 11/05/18 21:59 Last Admin: 10/06/18 22:01 Dose: 1.25 mg Documented by: [id number] Fluticasone/Salmeterol (Advair Diskus 250/50) 1 puffs INH AMHS [facility] Stop: 11/05/18 21:59 Last Admin: 10/06/18 22:03 Dose: 1 puffs Documented by: [id number] Discontinued Medications Furosemide (Lasix) 40 mg IV NOW STA Stop: 10/06/18 18:42 Last Admin: 10/06/18 19:02 Dose: 40 mg Documented by: [id number] Methylprednisolone 60 mg/ (Syringe) 1.96 mls @ 1.5 mls/min IV NOW STA Stop: 10/06/18 17:38 Last Admin: 10/06/18 17:55 Dose: Not Given Documented by: [id number] Levalbuterol HCl (Xopenex 1.25mg/0.5ml Neb) 1.25 mg NEB NOW STA Stop: 10/06/18 17:38 Last Admin: 10/06/18 17:44 Dose: 1.25 mg Documented by: [id number] Methylprednisolone (Solumedrol) Confirm Administered Dose 125 mg .ROUTE .STK-MED ONE Stop: 10/06/18 17:53 Last Admin: 10/06/18 17:54 Dose: 60 mg Documented by: [id number] Medical Decision Making Differential Diagnosis Differential diagnoses includes but is not limited to pneumonia, bronchitis, COPD/Asthma exacerbation, pneumothorax, pulmonary embolism, congestive heart failure, acute coronary syndrome Medical Records Attestation: I reviewed the patient's medical records. Home Medications Current Medication List: was personally reviewed by me Laboratory Data Attestation: I reviewed the patient's lab results. Result diagrams: 10/06/18 16:50 10/06/18 16:50 Lab Results 10/06/18 10/06/18 10/06/18 Range/Units 16:50 16:50 16:50 WBC 11.08 H (4.8-10.8) K/uL RBC 5.05 (4.2-5.4) M/uL Hgb 14.7 (12.0-16.0) g/dL Hct 43.5 (37-47) % MCV 86.1 (80-100) fL MCH 29.1 (25-34) pg MCHC 33.8 (32-36) g/dL RDW Std Deviation 47.5 H (36.4-46.3) fL RDW Coeff of Giuliana 15.1 H (11.5-14.5) % Plt Count 237 (130-400) K/uL MPV 11.7 H (7.4-10.4) fL Immature Gran % (Auto) 0.6 % Neut % (Auto) 71.1 % Lymph % (Auto) 18.0 % [place] % (Auto) 8.9 % Eos % (Auto) 1.2 % Baso % (Auto) 0.2 % Immature Gran # (Auto) 0.07 H (0.00-0.02) K/uL Neut # (Auto) 7.88 H (1.4-6.5) K/uL Lymph # (Auto) 1.99 (1.2-3.4) K/uL [place] # (Auto) 0.99 H (0.11-0.59) K/uL Eos # (Auto) 0.13 (0-0.5) K/uL Baso # (Auto) 0.02 (0-0.2) K/uL PT 11.1 (9.0-12.0) Seconds INR 1.1 (0.9-1.1) Sodium 140 (136-145) mmol/L Potassium 3.7 (3.5-5.1) mmol/L Chloride 108 H (98-107) mmol/L Carbon Dioxide 23 (21-32) mmol/L Anion Gap 9.0 (3-11) BUN 10 (7-18) mg/dl Creatinine 0.70 (0.6-1.2) mg/dl Est Cr Clr Drug Dosing 72.4 ml/min Est GFR ( Amer) 99.6 Est GFR (Non-Af Amer) 86.0 BUN/Creatinine Ratio 13.9 (10-20) Glucose 97 (70-99) mg/dl Calcium 8.8 (8.5-10.1) mg/dl Total Bilirubin 0.5 (0.2-1) mg/dl AST 22 (15-37) U/L ALT 21 (12-78) U/L Alkaline Phosphatase 95 (45-117) U/L Total Creatine Kinase 92 (26-192) U/L CK-MB (CK-2) 2.7 (0.5-3.6) ng/ml CK/CKMB % Calc 2.9 (0-3.0) Troponin I < 0.015 (0-0.045) ng/ml NT-Pro-B Natriuret Pep 1323 H (0-900) pg/ml Total Protein 7.3 (6.4-8.2) gm/dl Albumin 3.2 L (3.4-5.0) gm/dl Globulin 4.1 H (2.5-4.0) gm/dl Albumin/Globulin Ratio 0.8 L (0.9-2) Lipase 105 (73-393) U/L Influenza Type A Ag (Neg) Influenza Type B Ag (Neg) 10/06/18 Range/Units 18:35 WBC (4.8-10.8) K/uL RBC (4.2-5.4) M/uL Hgb (12.0-16.0) g/dL Hct (37-47) % MCV (80-100) fL MCH (25-34) pg MCHC (32-36) g/dL RDW Std Deviation (36.4-46.3) fL RDW Coeff of Giuliana (11.5-14.5) % Plt Count (130-400) K/uL MPV (7.4-10.4) fL Immature Gran % (Auto) % Neut % (Auto) % Lymph % (Auto) % [place] % (Auto) % Eos % (Auto) % Baso % (Auto) % Immature Gran # (Auto) (0.00-0.02) K/uL Neut # (Auto) (1.4-6.5) K/uL Lymph # (Auto) (1.2-3.4) K/uL [place] # (Auto) (0.11-0.59) K/uL Eos # (Auto) (0-0.5) K/uL Baso # (Auto) (0-0.2) K/uL PT (9.0-12.0) Seconds INR (0.9-1.1) Sodium (136-145) mmol/L Potassium (3.5-5.1) mmol/L Chloride (98-107) mmol/L Carbon Dioxide (21-32) mmol/L Anion Gap (3-11) BUN (7-18) mg/dl Creatinine (0.6-1.2) mg/dl Est Cr Clr Drug Dosing ml/min Est GFR ( Amer) Est GFR (Non-Af Amer) BUN/Creatinine Ratio (10-20) Glucose (70-99) mg/dl Calcium (8.5-10.1) mg/dl Total Bilirubin (0.2-1) mg/dl AST (15-37) U/L ALT (12-78) U/L Alkaline Phosphatase (45-117) U/L Total Creatine Kinase (26-192) U/L CK-MB (CK-2) (0.5-3.6) ng/ml CK/CKMB % Calc (0-3.0) Troponin I (0-0.045) ng/ml NT-Pro-B Natriuret Pep (0-900) pg/ml Total Protein (6.4-8.2) gm/dl Albumin (3.4-5.0) gm/dl Globulin (2.5-4.0) gm/dl Albumin/Globulin Ratio (0.9-2) Lipase (73-393) U/L Influenza Type A Ag Neg for Influ A (Neg) Influenza Type B Ag Neg for Influ B (Neg) Imaging Data Radiologist's Impression: Radiology results as stated below per my review and the radiologist's interpretation: XR chest 1V portable CLINICAL HISTORY: Chest Pain dyspnea COMPARISON STUDY: 03/14/2018 FINDINGS: Mild cardia megaly. Chronic prominence of the pulmonary vasculature. Diaphragms smooth. Right basilar interstitial change. IMPRESSION: Pulmonary vascular congestion. The above report was generated using voice recognition software. It may contain grammatical, syntax or spelling errors. Electronically signed by: Jr Heredia M.D. 10/06/2018 6:32 PM ECG Data Attestation: I personally reviewed and interpreted this ECG as follows: Indication: SOB/dyspnea Rate (beats per minute): 97 Rhythm: normal sinus Findings: + other (Old inferior infarct); no ST depression and no ST elevation Blood Pressure Blood Pressure Findings: Elevated blood pressure Blood Pressure Disposition: further management by hospitalist RUDDY Ponce This is a 73-year-old female who presents emergency department complaining of shortness of breath. The patient is normally on 2 L of oxygen however is requiring more. She appears to have volume overload on her chest x-ray. Her BNP is also elevated. For this reason the patient was given Lasix here in the emergency department she was also given an hour-long breathing treatment. I did discuss the case with the hospitalist service who agreed to admit the patient. Patient was in agreement with the treatment plan. Impression & Plan CHF (congestive heart failure) Discharge Plan Visit Data *Final* Discharge Date/Time: 10/06/18 20:55 Chief Complaint: Respiratory Problems Stated Complaint: ILLNESS ED Provider: Olvin Chan Discharge Problem: CHF (congestive heart failure) Patient Disposition: Admitted As Inpatient Discharge Instructions Interventions: ED Discharge Assessment Last Done: 10/06/18 20:55 Discharge Problem: CHF (congestive heart failure) Qualifiers: Heart failure type: unspecified Heart failure chronicity: acute Qualified Code(s): I50.9 - Heart failure, unspecified The scribe's documentation has been prepared under my direction and personally reviewed by me in its entirety. I confirm that the note above accurately reflects all work, treatment, procedures, and medical decision making performed by me.
[2018-10-07] MEDS: IPRATROPIUM BROMIDE NEB SOLN 0.02% 2.5 ML VIAL INH SCH ×4 (01:34→19:56)
[2018-10-07] MEDS: LEVALBUTEROL 1.25MG/0.5ML NEB INH SCH ×4 (01:34→19:56)
[2018-10-07] MEDS: methylPREDNISolone 40 MG in SYRINGE 0 ML IV SCH ×3 (02:00→18:50)
[2018-10-07] MEDS: MENTHOL-ZINC OXIDE 360 APPLN/120 GM TUBE EXT SCH ×4 (04:23→23:55)
[2018-10-07 05:26] LABS: Basophils # (auto) 0.01 K/uL (0-0.2); Basophils % (auto) 0.1 %; Hematocrit (blood only) 43.9 % (37-47); Hemoglobin 15.6 g/dL (12.0-16.0); Immature Granulocytes # (auto) 0.03 K/uL (0.00-0.02); Immature Granulocytes % (auto) 0.3 %; Lymphocytes # (auto) 0.98 K/uL (1.2-3.4); Lymphocytes % (auto) 10.7 %; Mean Corpuscular Hgb Conc 35.5 g/dL (32-36); Mean Corpuscular Volume 86.2 fL (80-100); Mean Platelet Volume 12.2 fL (7.4-10.4); Monocytes % (auto) 1.1 %; Neutrophils # (auto) 8.03 K/uL (1.4-6.5); Neutrophils % (auto) 87.8 %; Platelet Count 234 K/uL (130-400); RDW Coefficient of Variation 14.9 % (11.5-14.5); RDW Standard Deviation 46.9 fL (36.4-46.3); Red Blood Count 5.09 M/uL (4.2-5.4); White Blood Count 9.15 K/uL (4.8-10.8)
[2018-10-07 05:52] LABS: BUN Creatinine Ratio 17.2 (10-20); Calcium 8.7 mg/dl (8.5-10.1); Creatinine Clr Calc Pharmacy 65.4 ml/min; Est GFR (African American) 93.2; Est GFR (Non-African American) 80.4; Magnesium 2.1 mg/dl (1.8-2.4); Potassium 3.6 mmol/L (3.5-5.1)
[2018-10-07] MEDS: HEPARIN SOD 5,000 UNIT/0.5 ML VIAL SQ SCH ×3 (06:14→19:45)
--- NOTE | 2018-10-07 06:31 | Ultrasound Report ---
US venous doppler LE BI CLINICAL HISTORY: Lower extremity swelling COMPARISON STUDY: No previous studies for comparison. FINDINGS: Real-time and color flow Doppler imaging were performed. Flow was seen within the femoral, popliteal and calf veins with no intraluminal thrombus demonstrated. The saphenous vein is patent. IMPRESSION: No evidence of lower extremity DVT. Electronically signed by: Edson Bui M.D. 10/07/2018 6:30 AM
--- NOTE | 2018-10-07 08:09 | History & Physical Report ---
Date of Service October 07, 2018 Assessment & Plan (1) Acute and chronic respiratory failure: Has tachyapnea, requiring more oxygen mostly from copd ex and chf Present on Admission?: Yes (2) CHF (congestive heart failure): sob pul congestion on cxr mostly right sided heart failure this is new episode will follw eho received a dose of iv lasix in ER will start on diuretics based on response and echo findings daily weights and i/o's consult cardiology for further recommendations Present on Admission?: Yes (3) COPD exacerbation: hx of restrictive lung disease and copd failed outpatinet tx with levaquin no obvious pneumonia on cx will empirically start on iv cefepime and doxycline iv steroids nebs atc and prn and close monitor if not getting better will consider pulmonary consult Present on Admission?: Yes (4) Pulmonary nodule, right: followup with pcp Present on Admission?: Yes (5) HTN (hypertension): Not on meds will monitor Present on Admission?: Yes History of Present Illness Chief Complaint: SOB Primary Care Provider: Dada Carr This is 73F with PMH significant for COPD ,Restrictive lung disease, pulmonary nodules, chronic respiratory failure on 3lt oxygen,HTN, Cystocele,Chronic lower extremity edema, Chronic low back pain,ambulatory dysfunction, Jehovah witness who is currently living at [facility] was brought in because of ongoing sob and cough. Patient says since last one week she is having sob and cough with greenish sputum initially but currently bringing out whitish sputum. She was treated with levaquin at [facility] but it was not getting better. Walking few steps making her sob. In the ER currently she is getting sob on talking. Always has orthoapnea.Sleeps with elevated head.Denies chest pain. No fevers. No nausea. Normal bowel movements.Because of cystocele she sometimes has trouble micturating. Currently no burning micturation. Requiring higher oxygen in ER. CXR showed pulmonary congestion and received a dose of lasix in ER. Has chronic lower extremity edema and patient says they are not worsened lately. Allergies Allergy/AdvReac Type Severity Reaction Status Date / Time No Known Allergies Allergy Verified 10/06/18 18:01 Home Medications Home Medications Medication Instructions Recorded Confirmed Type acetaminophen [Tylenol] 650 mg PO Q4H PRN 10/06/18 10/06/18 History albuterol sulfate [Ventolin HFA] 2 puff INHALATION DIRECTED 10/06/18 10/06/18 History albuterol sulfate [Ventolin HFA] 2 puff INHALATION Q3H PRN 10/06/18 10/06/18 History aspirin 500 mg PO QAM 10/06/18 10/06/18 History bisacodyl [Dulcolax (bisacodyl)] 10 mg [place] DIRECTED PRN 10/06/18 10/06/18 History fluticasone-salmeterol [Advair 1 ft INHALATION AMHS 10/06/18 10/06/18 History Diskus] guaifenesin [Siltussin SA] 10 ml PO Q4H PRN 10/06/18 10/06/18 History ipratropium-albuterol [Combivent 2 puff INHALATION QID PRN 10/06/18 10/06/18 History Respimat] levofloxacin [Levaquin] 500 mg PO DAILY 10/06/18 10/06/18 History lidocaine HCl-menthol [Icy 1 applic TOPICAL Q8H 10/06/18 10/06/18 History Hot(lidocaine HCl-menthol)] magnesium hydroxide [Milk of 30 ml PO DAILY PRN 10/06/18 10/06/18 History Magnesia] menthol-zinc oxide [Calmoseptine] 1 applic TOPICAL DIRECTED 10/06/18 10/06/18 History sodium phosphates [Fleet Enema] 197 ml [place] DIRECTED PRN 10/06/18 10/06/18 History vitamin B complex 1 cap PO QAM 10/06/18 10/06/18 History Past Med/Surg History Medical History Chronic bronchitis (Chronic) Pulmonary nodule, right (Chronic) "last CT in 2010 revealed R lung nodule, recommended FNA or PET, patient refused further work up" HTN (hypertension) (Chronic) Venous stasis dermatitis of left lower extremity (Chronic) Obesity (BMI 35.0-39.9 without comorbidity) (Chronic) Surgical History History of tubal ligation (Resolved) History of colonoscopy (Resolved) History of D&C (Chronic) Family History Other Family history non-contributory Social History Preferred Language: [place]iny[place] [employer] Offbearer Required: No Beliefs That Will Affect Care: Orthodox Current Living Situation: Family Feels Safe at Home: Yes Safety Concerns: Feels Safe At This Time Smoking Status: Former smoker Hx Alcohol Use: No Hx Substance Use: No Review of Systems Constitutional- no fever; no weight loss Eyes- no acute visual changes ENT- no sinus drainage; no pharyngitis Pulmonary- has cough with whitis sputum and no shortness of breath Cardiac- no chest pain, orthopnea present dependent edema present GI- no nausea, no vomiting, no diarrhea, no melena, Derm- no rashes Hematologic- says she sometimes gets bruises and stops aspirin for few days and resumes aspirin when bruises gets resolved. Neuro- no headaches, no focal neurologic symptoms Physical Exam Vital Signs (Past 24 Hours): Last Vital Signs Temp 36.9 C 10/07/18 04:21 Pulse 96 H 10/07/18 06:57 Resp 20 10/07/18 06:57 BP 157/90 H 10/07/18 04:21 Pulse Ox 91 10/07/18 06:57 Physical Exam: General- adult Head- atraumatic Eyes- PERRL, EOMI, anicteric ENT- oropharynx clear Neck- supple, no JVD, no adenopathy, no thyromegaly; carotids +2/2, no bruits appreciated Lungs- clear to auscultation and percussion , tachyapneic, bibasilar crackles present, mild b/l ronchi Heart- regular rhythm; no murmur, no gallop, no rub appreciated Abdomen- normal bowel sounds, soft, nontender, no masses or hepatosplenomegaly Extremities- lower extremity edema present, mild erythema seen Neuro- alert, oriented x 3; PERRL, EOMI; no facial palsy; no dysarthria; non focalrigidity; patellar DTRs +2/2; toes downgoing bilaterally; finger to nose intact bilaterally Skin- warm & dry Results & Data Laboratory Results Laboratory Results - last 24 hr 10/06/18 10/06/18 10/06/18 16:50 16:50 16:50 WBC 11.08 H RBC 5.05 Hgb 14.7 Hct 43.5 MCV 86.1 MCH 29.1 MCHC 33.8 RDW Std Deviation 47.5 H RDW Coeff of Giuliana 15.1 H Plt Count 237 MPV 11.7 H Immature Gran % (Auto) 0.6 Neut % (Auto) 71.1 Lymph % (Auto) 18.0 [place] % (Auto) 8.9 Eos % (Auto) 1.2 Baso % (Auto) 0.2 Immature Gran # (Auto) 0.07 H Neut # (Auto) 7.88 H Lymph # (Auto) 1.99 [place] # (Auto) 0.99 H Eos # (Auto) 0.13 Baso # (Auto) 0.02 PT 11.1 INR 1.1 Sodium 140 Potassium 3.7 Chloride 108 H Carbon Dioxide 23 Anion Gap 9.0 BUN 10 Creatinine 0.70 Est Cr Clr Drug Dosing 72.4 Est GFR ( Amer) 99.6 Est GFR (Non-Af Amer) 86.0 BUN/Creatinine Ratio 13.9 Glucose 97 Calcium 8.8 Magnesium Total Bilirubin 0.5 AST 22 ALT 21 Alkaline Phosphatase 95 Total Creatine Kinase 92 CK-MB (CK-2) 2.7 CK/CKMB % Calc 2.9 Troponin I < 0.015 NT-Pro-B Natriuret Pep 1323 H Total Protein 7.3 Albumin 3.2 L Globulin 4.1 H Albumin/Globulin Ratio 0.8 L Lipase 105 Influenza Type A Ag Influenza Type B Ag 10/06/18 10/07/18 10/07/18 18:35 05:10 05:10 WBC 9.15 RBC 5.09 Hgb 15.6 Hct 43.9 MCV 86.2 MCH 30.6 MCHC 35.5 RDW Std Deviation 46.9 H RDW Coeff of Giuliana 14.9 H Plt Count 234 MPV 12.2 H Immature Gran % (Auto) 0.3 Neut % (Auto) 87.8 Lymph % (Auto) 10.7 [place] % (Auto) 1.1 Eos % (Auto) 0.0 Baso % (Auto) 0.1 Immature Gran # (Auto) 0.03 H Neut # (Auto) 8.03 H Lymph # (Auto) 0.98 L [place] # (Auto) 0.10 L Eos # (Auto) 0.00 Baso # (Auto) 0.01 PT INR Sodium 140 Potassium 3.6 Chloride 106 Carbon Dioxide 26 Anion Gap 8.0 BUN 13 Creatinine 0.74 Est Cr Clr Drug Dosing 65.4 Est GFR ( Amer) 93.2 Est GFR (Non-Af Amer) 80.4 BUN/Creatinine Ratio 17.2 Glucose 149 H Calcium 8.7 Magnesium 2.1 Total Bilirubin AST ALT Alkaline Phosphatase Total Creatine Kinase CK-MB (CK-2) CK/CKMB % Calc Troponin I NT-Pro-B Natriuret Pep Total Protein Albumin Globulin Albumin/Globulin Ratio Lipase Influenza Type A Ag Neg for Influ A Influenza Type B Ag Neg for Influ B Diagnostic Findings CXR: Pulmonary vascular congestion. VENOUS DOPPLER: No evidence of lower extremity DVT. ECG Additional Comments: ECG: NSR WITH RATE OF 97. NO ACUTE ST CHANGES SEEN Code Status & VTE Plan Code Status FULL CODE VTE Prophylaxis Plan VTE Prophylaxis will be ordered: Yes (1) CHF (congestive heart failure) Heart failure chronicity: acute Heart failure type: unspecified Qualified Code(s): I50.9 - Heart failure, unspecified
--- NOTE | 2018-10-07 08:11 | History & Physical Report ---
Date of Service October 06, 2018 History of Present Illness Primary Care Provider: Dada Carr Allergies Allergy/AdvReac Type Severity Reaction Status Date / Time No Known Allergies Allergy Verified 10/06/18 18:01 Home Medications Home Medications Medication Instructions Recorded Confirmed Type acetaminophen [Tylenol] 650 mg PO Q4H PRN 10/06/18 10/06/18 History albuterol sulfate [Ventolin HFA] 2 puff INHALATION DIRECTED 10/06/18 10/06/18 History albuterol sulfate [Ventolin HFA] 2 puff INHALATION Q3H PRN 10/06/18 10/06/18 History aspirin 500 mg PO QAM 10/06/18 10/06/18 History bisacodyl [Dulcolax (bisacodyl)] 10 mg ND DIRECTED PRN 10/06/18 10/06/18 History fluticasone-salmeterol [Advair 1 ft INHALATION [facility]HS 10/06/18 10/06/18 History Diskus] guaifenesin [Siltussin SA] 10 ml PO Q4H PRN 10/06/18 10/06/18 History ipratropium-albuterol [Combivent 2 puff INHALATION QID PRN 10/06/18 10/06/18 History Respimat] levofloxacin [Levaquin] 500 mg PO DAILY 10/06/18 10/06/18 History lidocaine HCl-menthol [Icy 1 applic TOPICAL Q8H 10/06/18 10/06/18 History Hot(lidocaine HCl-menthol)] magnesium hydroxide [Milk of 30 ml PO DAILY PRN 10/06/18 10/06/18 History Magnesia] menthol-zinc oxide [Calmoseptine] 1 applic TOPICAL DIRECTED 10/06/18 10/06/18 History sodium phosphates [Fleet Enema] 197 ml ND DIRECTED PRN 10/06/18 10/06/18 History vitamin B complex 1 cap PO QAM 10/06/18 10/06/18 History Past Med/Surg History Medical History Chronic bronchitis (Chronic) Pulmonary nodule, right (Chronic) "last CT in 2010 revealed R lung nodule, recommended FNA or PET, patient refused further work up" HTN (hypertension) (Chronic) Venous stasis dermatitis of left lower extremity (Chronic) Obesity (BMI 35.0-39.9 without comorbidity) (Chronic) Surgical History History of tubal ligation (Resolved) History of colonoscopy (Resolved) History of D&C (Chronic) Family History Other Family history non-contributory Social History Preferred Language: Venezuelan 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
[2018-10-07] MEDS: DOXYCYCLINE HYCLATE 100 MG CAP PO SCH ×2 (08:18→19:42)
[2018-10-07] MEDS: ASPIRIN 325 MG ECTAB PO SCH (08:18)
[2018-10-07] MEDS: VITAMIN B COMPLEX TAB PO SCH (08:18)
[2018-10-07] MEDS: FLUTICASONE/SALMETEROL 250/50 (ADVAIR) 14 PUFF/1 INHALER INH SCH ×2 (08:18→19:44)
--- NOTE | 2018-10-07 10:52 | Cardiology Consultation ---
Date of Consultation October 07, 2018 Assessment & Plan (1) Acute and chronic respiratory failure: Patient presents with acute on chronic respiratory failure worsening shortness of breath. Current exam does not suggest significant congestive heart failure. BNP was not elevated for age. I do feel patient has a component of diastolic dysfunction secondary to rate with hyperdynamic LV function observed on echocardiogram patient tachycardic at minimal exertion. Optimally would treat with beta-blockers however given significance of patient's pulmonary disease will opt for verapamil 180 mg p.o. daily for rate control, aid in diastolic dysfunction. Would not aggressively pursue further diuresis at this time. Treat underlying pain and pulmonary issues We will continue to follow (2) HTN (hypertension): (3) Diastolic dysfunction: History of Present Illness Reason for Consultation: Acute on chronic dyspnea question diastolic heart failure Requesting Physician: Dr. Beverly Attending Physician: Diana Beverly MD History of Present Illness Is a 73-year-old female with long history of restrictive lung disease/COPD O2 dependent who is currently a resident at [facility] since mid August after pulmonary exacerbation. Patient presents now with worsening dyspnea tachycardia and back pain. Initial ER evaluation demonstrated increased interstitial markings on chest x-ray she was given single dose of IV furosemide and is referred now for further evaluation. Patient denies any prior history of cardiac disease chest pain, myocardial infarction, angina, congestive heart failure, rheumatic fever scarlet fever Pulmonary issues of been chronic and ongoing patient feels she is not been receiving adequate dosing of bronchodilators. Has had mildly productive cough feels chilled but no overt fevers. Notes no acute weight gain does complain of orthopnea dyspnea with minimal exertion. Has had mild lower extremity edema right greater than left chronic with recent increase. She notes no bleeding difficulties. Notes no dysuria hematuria though has prolapsing bladder with some interference appetite is fair Patient is reluctant to change medications or take additional therapies wishes chronic back pain control Allergies Allergy/AdvReac Type Severity Reaction Status Date / Time No Known Allergies Allergy Verified 10/06/18 18:01 Home Medications Home Medications Medication Instructions Recorded Confirmed Type acetaminophen [Tylenol] 650 mg PO Q4H PRN 10/06/18 10/06/18 History albuterol sulfate [Ventolin HFA] 2 puff INHALATION DIRECTED 10/06/18 10/06/18 History albuterol sulfate [Ventolin HFA] 2 puff INHALATION Q3H PRN 10/06/18 10/06/18 History aspirin 500 mg PO QAM 10/06/18 10/06/18 History bisacodyl [Dulcolax (bisacodyl)] 10 mg MA DIRECTED PRN 10/06/18 10/06/18 History fluticasone-salmeterol [Advair 1 ft INHALATION AMHS 10/06/18 10/06/18 History Diskus] guaifenesin [Siltussin SA] 10 ml PO Q4H PRN 10/06/18 10/06/18 History ipratropium-albuterol [Combivent 2 puff INHALATION QID PRN 10/06/18 10/06/18 History Respimat] levofloxacin [Levaquin] 500 mg PO DAILY 10/06/18 10/06/18 History lidocaine HCl-menthol [Icy 1 applic TOPICAL Q8H 10/06/18 10/06/18 History Hot(lidocaine HCl-menthol)] magnesium hydroxide [Milk of 30 ml PO DAILY PRN 10/06/18 10/06/18 History Magnesia] menthol-zinc oxide [Calmoseptine] 1 applic TOPICAL DIRECTED 10/06/18 10/06/18 History sodium phosphates [Fleet Enema] 197 ml MA DIRECTED PRN 10/06/18 10/06/18 History vitamin B complex 1 cap PO QAM 10/06/18 10/06/18 History Patient History Medical History Chronic bronchitis (Chronic) Pulmonary nodule, right (Chronic) "last CT in 2010 revealed R lung nodule, recommended FNA or PET, patient refused further work up" HTN (hypertension) (Chronic) Venous stasis dermatitis of left lower extremity (Chronic) Obesity (BMI 35.0-39.9 without comorbidity) (Chronic) Surgical History History of tubal ligation (Resolved) History of colonoscopy (Resolved) History of D&C (Chronic) Family History Other Family history non-contributory Social History 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 Language: 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: No Beliefs That Will Affect Care: Evangelical Current Living Situation: Family Feels Safe at Home: Yes Safety Concerns: Feels Safe At This Time Smoking Status: Former smoker Hx Alcohol Use: No Hx Substance Use: No Review of Systems As per HPI and otherwise negative Physical Exam Vital Signs (Past 24 Hours): Last Vital Signs Temp 36.9 C 10/07/18 04:21 Pulse 96 H 10/07/18 09:17 Resp 20 10/07/18 06:57 BP 157/90 H 10/07/18 04:21 Pulse Ox 91 10/07/18 06:57 Constitutional: + ill appearing and + thin Patient is dyspneic and tachycardic with minimal movement in bed Eyes: PERRL, conjunctivae normal, anicteric sclerae Neck: trachea midline, no thyromegaly Respiratory: + audible wheezes Auscultation: + diminished lung sounds and + rhonchi (Coarse rhonchi with cough left greater than right) Cardiovascular: Rate/Rhythm: regular rate and regular rhythm Heart Sounds: normal S1 and normal S2; no gallop, no murmur and no cardiac rub Extremities: + edema (Trace only) Gastrointestinal (Abdomen): normal bowel sounds, soft, nontender, no hepatosplenomegaly Musculoskeletal: no cyanosis or clubbing, extremities motor strength 5/5 Skin: Mild chronic stasis changes no cyanosis Results & Data Laboratory Results Laboratory Results - last 24 hr 10/06/18 10/06/18 10/06/18 16:50 16:50 16:50 WBC 11.08 H RBC 5.05 Hgb 14.7 Hct 43.5 MCV 86.1 MCH 29.1 MCHC 33.8 RDW Std Deviation 47.5 H RDW Coeff of Giuliana 15.1 H Plt Count 237 MPV 11.7 H Immature Gran % (Auto) 0.6 Neut % (Auto) 71.1 Lymph % (Auto) 18.0 Brown % (Auto) 8.9 Eos % (Auto) 1.2 Baso % (Auto) 0.2 Immature Gran # (Auto) 0.07 H Neut # (Auto) 7.88 H Lymph # (Auto) 1.99 Brown # (Auto) 0.99 H Eos # (Auto) 0.13 Baso # (Auto) 0.02 PT 11.1 INR 1.1 Sodium 140 Potassium 3.7 Chloride 108 H Carbon Dioxide 23 Anion Gap 9.0 BUN 10 Creatinine 0.70 Est Cr Clr Drug Dosing 72.4 Est GFR ( Amer) 99.6 Est GFR (Non-Af Amer) 86.0 BUN/Creatinine Ratio 13.9 Glucose 97 Calcium 8.8 Magnesium Total Bilirubin 0.5 AST 22 ALT 21 Alkaline Phosphatase 95 Total Creatine Kinase 92 CK-MB (CK-2) 2.7 CK/CKMB % Calc 2.9 Troponin I < 0.015 NT-Pro-B Natriuret Pep 1323 H Total Protein 7.3 Albumin 3.2 L Globulin 4.1 H Albumin/Globulin Ratio 0.8 L Lipase 105 Influenza Type A Ag Influenza Type B Ag 10/06/18 10/07/18 10/07/18 18:35 05:10 05:10 WBC 9.15 RBC 5.09 Hgb 15.6 Hct 43.9 MCV 86.2 MCH 30.6 MCHC 35.5 RDW Std Deviation 46.9 H RDW Coeff of Giuliana 14.9 H Plt Count 234 MPV 12.2 H Immature Gran % (Auto) 0.3 Neut % (Auto) 87.8 Lymph % (Auto) 10.7 Brown % (Auto) 1.1 Eos % (Auto) 0.0 Baso % (Auto) 0.1 Immature Gran # (Auto) 0.03 H Neut # (Auto) 8.03 H Lymph # (Auto) 0.98 L Brown # (Auto) 0.10 L Eos # (Auto) 0.00 Baso # (Auto) 0.01 PT INR Sodium 140 Potassium 3.6 Chloride 106 Carbon Dioxide 26 Anion Gap 8.0 BUN 13 Creatinine 0.74 Est Cr Clr Drug Dosing 65.4 Est GFR ( Amer) 93.2 Est GFR (Non-Af Amer) 80.4 BUN/Creatinine Ratio 17.2 Glucose 149 H Calcium 8.7 Magnesium 2.1 Total Bilirubin AST ALT Alkaline Phosphatase Total Creatine Kinase CK-MB (CK-2) CK/CKMB % Calc Troponin I NT-Pro-B Natriuret Pep Total Protein Albumin Globulin Albumin/Globulin Ratio Lipase Influenza Type A Ag Neg for Influ A Influenza Type B Ag Neg for Influ B Diagnostic Findings Echocardiogram 10/07/2018 Hyperdynamic LV systolic function EF greater than 70% without wall motion abnormality Mild mitral tricuspid insufficiency Grade 2 diastolic dysfunction ECG Additional Comments: 10-MAR-2019 17:30:54 [facility] Normal sinus rhythm Cannot rule out Anterior infarct (cited on or before 16-MAR-2018) Abnormal ECG When compared with ECG of 16-MAR-2018 06:44, No significant change was found
[2018-10-07] MEDS: CEFEPIME 2,000 MG in SYRINGE 7.5 ML IV SCH ×2 (11:07→18:50)
[2018-10-07] MEDS ORDERED: POTASSIUM CHLORIDE 10 MEQ TABCR PO STA (11:07)
[2018-10-07] MEDS: VERAPAMIL HCL 180 MG TABCR PO SCH (13:20)
--- NOTE | 2018-10-07 15:55 | Hospitalist Progress Note ---
Date of Service October 07, 2018 Assessment & Plan (1) Acute and chronic respiratory failure: Cardiology evaluation appreciated - seems more related to pulmonary etiology than CHF - Continue IV solumedrol/antibiotics - Continue ATC nebs with prn up to every two hours although pt has not been ne eding to this point - Pt reports baseline oxygen requirement is 3-4 liters - [facility] and reports they were not giving her inhalers to her correctly - Eventual PT/OT for deconditioning (was receiving therapy at [facility] per pt) but pt reports that she is "not ready" yet (2) CHF (congestive heart failure): - Appreciate cardiology input - no additional diuresis recommended at this point - Continue daily weights and i/o's - Verapamil being added - pt resistant to taking a new medication as she states her heart rate only goes up when she gets anxious. Attempted to explain why this medication would be helpful for her. (3) COPD exacerbation: hx of restrictive lung disease and copd - failed outpatient tx with levaquin for worsening respiratory status no obvious pneumonia on cx will empirically start on iv cefepime and doxycline - continue for now since patient clinically improving iv steroids started on admission - continue for at least another 24 hours nebs atc and prn as discussed above Clinically improving at present - if worsens, consider pulmonary consult (4) Pulmonary nodule, right: followup with pcp (5) HTN (hypertension): Starting Verapamil for per cardio recs will monitor Patient reviewed with attending physician Dr. Ahumada. Plan of care discussed and as outlined above. Darian Nelson PA-C Supervising Physician Co-Signing Physician Notes Attending addendum: Patient was seen and examined in telemetry unit She was admitted with COPD exacerbation without any pneumonia with history of congestive heart failure Has been feeling little better since admission Denies any chest pain On examination Moderate shortness of breath at rest No audible wheezing Chest-decreased breath sounds on, minimal crackles at the bases Heart-S1-S2 Abdomen-benign Admission labs and imaging studies noted Acute assessment and plan Discontinue cefepime tomorrow and continue with oral doxycycline Continue with bronchodilator and Solu-Medrol Appreciate cardiology input and recommendation Acute assessment plan as mentioned above by Maria C ahumada Subjective 73 y/o female admitted overnight with acute on chronic respiratory failure - thought multi-factorial due to CHF and COPD exacerbation. She is seen sitting in chair this afternoon and reports marked improvement from admission. Dyspnea is much improved at rest although still SOB with any exertion. Coughing episodically - productive of clear sputum. She reports "I've really been able to clean out my lungs now with the medicine" - less chest congestion. Continues with intermittent wheezing, particularly right before a coughing fit. Appetite has improved - ate lunch without difficulty. Denies N/V. Last BM was yesterday - none yet today. Denies fevers or chills. Continues with generalized weakness and fatigue. Pt reports that her baseline oxygen requirement is "high 3 or low 4" and she is very concerned that we will attempt to wean her below this level. She was at [facility] for rehab but reports limited ability to participate due to her respiratory status. Constitutional: + fatigue and + weakness; no fever, no chills, no sweats and no anorexia Respiratory: + cough, + chest congestion, + dyspnea on exertion and + wheezing; no hemoptysis Cardiovascular: no chest pain, no palpitations and no edema Gastrointestinal: no abdominal pain, no bloating, no nausea and no vomiting Musculoskeletal: + muscle weakness; no swelling Psychiatric: + anxiety Physical Exam Vital Signs (Past 24 Hours): Last Vital Signs Temp 36.4 C L 10/07/18 15:09 Pulse 109 H 10/07/18 15:09 Resp 20 10/07/18 15:09 BP 141/75 H 10/07/18 15:09 Pulse Ox 90 10/07/18 15:09 Constitutional: WD/WN, vitals as above no acute distress ENMT: external ear and nose normal, oropharynx normal Neck: trachea midline Respiratory: no respiratory distress and does not use accessory muscles Auscultation: + diminished lung sounds, + rhonchi (coarse rhonchi throughout) and + wheezes Cardiovascular: Rate/Rhythm: regular rate and regular rhythm Heart Sounds: no gallop, no murmur and no cardiac rub Extremities: + edema (trace pretibial); no calf tenderness Gastrointestinal (Abdomen): Inspection/Auscultation: normal bowel sounds; abdomen not distended Percussion/Palpation: abdomen soft; abdomen nontender and no guarding Skin: chronic stasis changes bilateral LE - left > right Psychiatric: Orientation: alert and oriented x 3 Affect: + anxious affect (at times) Thought Process: + tangential thought process Results & Data Laboratory Results Laboratory Results - last 24 hr 10/06/18 10/06/18 10/06/18 16:50 16:50 16:50 WBC 11.08 H RBC 5.05 Hgb 14.7 Hct 43.5 MCV 86.1 MCH 29.1 MCHC 33.8 RDW Std Deviation 47.5 H RDW Coeff of Giuliana 15.1 H Plt Count 237 MPV 11.7 H Immature Gran % (Auto) 0.6 Neut % (Auto) 71.1 Lymph % (Auto) 18.0 [place]orne % (Auto) 8.9 Eos % (Auto) 1.2 Baso % (Auto) 0.2 Immature Gran # (Auto) 0.07 H Neut # (Auto) 7.88 H Lymph # (Auto) 1.99 [place] # (Auto) 0.99 H Eos # (Auto) 0.13 Baso # (Auto) 0.02 PT 11.1 INR 1.1 Sodium 140 Potassium 3.7 Chloride 108 H Carbon Dioxide 23 Anion Gap 9.0 BUN 10 Creatinine 0.70 Est Cr Clr Drug Dosing 72.4 Est GFR ( Amer) 99.6 Est GFR (Non-Af Amer) 86.0 BUN/Creatinine Ratio 13.9 Glucose 97 Calcium 8.8 Magnesium Total Bilirubin 0.5 AST 22 ALT 21 Alkaline Phosphatase 95 Total Creatine Kinase 92 CK-MB (CK-2) 2.7 CK/CKMB % Calc 2.9 Troponin I < 0.015 NT-Pro-B Natriuret Pep 1323 H Total Protein 7.3 Albumin 3.2 L Globulin 4.1 H Albumin/Globulin Ratio 0.8 L Lipase 105 Procalcitonin Influenza Type A Ag Influenza Type B Ag 10/06/18 10/07/18 10/07/18 18:35 05:10 05:10 WBC 9.15 RBC 5.09 Hgb 15.6 Hct 43.9 MCV 86.2 MCH 30.6 MCHC 35.5 RDW Std Deviation 46.9 H RDW Coeff of Giuliana 14.9 H Plt Count 234 MPV 12.2 H Immature Gran % (Auto) 0.3 Neut % (Auto) 87.8 Lymph % (Auto) 10.7 [place]orne % (Auto) 1.1 Eos % (Auto) 0.0 Baso % (Auto) 0.1 Immature Gran # (Auto) 0.03 H Neut # (Auto) 8.03 H Lymph # (Auto) 0.98 L [place] # (Auto) 0.10 L Eos # (Auto) 0.00 Baso # (Auto) 0.01 PT INR Sodium 140 Potassium 3.6 Chloride 106 Carbon Dioxide 26 Anion Gap 8.0 BUN 13 Creatinine 0.74 Est Cr Clr Drug Dosing 65.4 Est GFR ( Amer) 93.2 Est GFR (Non-Af Amer) 80.4 BUN/Creatinine Ratio 17.2 Glucose 149 H Calcium 8.7 Magnesium 2.1 Total Bilirubin AST ALT Alkaline Phosphatase Total Creatine Kinase CK-MB (CK-2) CK/CKMB % Calc Troponin I NT-Pro-B Natriuret Pep Total Protein Albumin Globulin Albumin/Globulin Ratio Lipase Procalcitonin Influenza Type A Ag Neg for Influ A Influenza Type B Ag Neg for Influ B 10/07/18 13:38 WBC RBC Hgb Hct MCV MCH MCHC RDW Std Deviation RDW Coeff of Giuliana Plt Count MPV Immature Gran % (Auto) Neut % (Auto) Lymph % (Auto) [place]orne % (Auto) Eos % (Auto) Baso % (Auto) Immature Gran # (Auto) Neut # (Auto) Lymph # (Auto) [place]orne # (Auto) Eos # (Auto) Baso # (Auto) PT INR Sodium Potassium Chloride Carbon Dioxide Anion Gap BUN Creatinine Est Cr Clr Drug Dosing Est GFR ( Amer) Est GFR (Non-Af Amer) BUN/Creatinine Ratio Glucose Calcium Magnesium Total Bilirubin AST ALT Alkaline Phosphatase Total Creatine Kinase CK-MB (CK-2) CK/CKMB % Calc Troponin I NT-Pro-B Natriuret Pep Total Protein Albumin Globulin Albumin/Globulin Ratio Lipase Procalcitonin < 0.05 Influenza Type A Ag Influenza Type B Ag Medications Administered Aspirin (Ecotrin) 325 mg PO DAILY [facility] Stop: 11/06/18 08:59 Last Admin: 10/07/18 08:18 Dose: 325 mg Documented by: [id number] Calamine/Phenol (Calmoseptine) 1 appln EXT QS [facility] Stop: 11/06/18 00:00 Last Admin: 10/07/18 08:18 Dose: 1 appln Documented by: [id number] Admin: 10/07/18 04:23 Dose: Not Given Documented by: [id number] Doxycycline Hyclate (Vibramycin) 100 mg PO BID [facility] Stop: 10/13/18 22:59 Last Admin: 10/07/18 08:18 Dose: 100 mg Documented by: [id number] Admin: 10/06/18 22:22 Dose: Not Given Documented by: [id number] Heparin Sodium (Porcine) (Heparin Sodium (Porcine)) 5,000 units SQ Q8 [facility] Stop: 11/05/18 21:59 Last Admin: 10/07/18 15:11 Dose: Not Given Documented by: [id number] Admin: 10/07/18 06:14 Dose: Not Given Documented by: [id number] Admin: 10/06/18 22:26 Dose: 5,000 units Documented by: [id number] Cosigned by: [id number] Methylprednisolone 40 mg/ (Syringe) 0.64 mls @ 1.5 mls/min IV Q8H [facility] Stop: 11/06/18 01:59 Last Admin: 10/07/18 11:07 Dose: 1.5 mls/min Documented by: [id number] Admin: 10/07/18 02:00 Dose: 1.5 mls/min Documented by: [id number] Ipratropium Willis (Atrovent 0.02% 0.5mg/2.5ml) 0.5 mg INH Q6R [facility] Stop: 11/05/18 21:59 Last Admin: 10/07/18 13:55 Dose: 0.5 mg Documented by: [id number] Admin: 10/07/18 06:54 Dose: 0.5 mg Documented by: [id number] Admin: 10/07/18 01:34 Dose: 0.5 mg Documented by: [id number] Admin: 10/06/18 22:01 Dose: 0.5 mg Documented by: [id number] Levalbuterol HCl (Xopenex 1.25mg/0.5ml Neb) 1.25 mg INH Q6R [facility] Stop: 11/05/18 21:59 Last Admin: 10/07/18 13:55 Dose: 1.25 mg Documented by: [id number] Admin: 10/07/18 06:54 Dose: 1.25 mg Documented by: [id number] Admin: 10/07/18 01:34 Dose: 1.25 mg Documented by: [id number] Admin: 10/06/18 22:01 Dose: 1.25 mg Documented by: [id number] Fluticasone/Salmeterol (Advair Diskus 250/50) 1 puffs INH AMHS [facility] Stop: 11/05/18 21:59 Last Admin: 10/07/18 08:18 Dose: 1 puffs Documented by: [id number] Admin: 10/06/18 22:03 Dose: 1 puffs Documented by: [id number] Verapamil HCl (Calan Sr) 180 mg PO QAM [facility] Stop: 11/06/18 10:59 Last Admin: 10/07/18 13:20 Dose: Not Given Documented by: [id number] Vitamin B Complex (Vitamin B Complex) [facility] Stop: 11/06/18 08:59 Last Admin: 10/07/18 08:18 Dose: 1 tab Documented by: [id number] Discontinued Medications Furosemide (Lasix) 40 mg IV NOW STA Stop: 10/06/18 18:42 Last Admin: 10/06/18 19:02 Dose: 40 mg Documented by: [id number] Methylprednisolone 60 mg/ (Syringe) 1.96 mls @ 1.5 mls/min IV NOW STA Stop: 10/06/18 17:38 Last Admin: 10/06/18 17:55 Dose: Not Given Documented by: [id number] Cefepime HCl 2,000 mg/ Syringe 20 mls @ 5.5 mls/min IV Q12H [facility]; Protocol Stop: 10/13/18 21:59 Last Admin: 10/07/18 11:07 Dose: 5.5 mls/min Documented by: [id number] Admin: 10/06/18 22:04 Dose: 5.5 mls/min Documented by: [id number] Levalbuterol HCl (Xopenex 1.25mg/0.5ml Neb) 1.25 mg NEB NOW STA Stop: 10/06/18 17:38 Last Admin: 10/06/18 17:44 Dose: 1.25 mg Documented by: [id number] Methylprednisolone (Solumedrol) Confirm Administered Dose 125 mg .ROUTE .STK-MED ONE Stop: 10/06/18 17:53 Last Admin: 10/06/18 17:54 Dose: 60 mg Documented by: [id number] Potassium Chloride (Klor-Con M10) 40 meq PO NOW STA Stop: 10/07/18 11:08 Last Admin: 10/07/18 11:34 Dose: 40 meq Documented by: [id number] (1) CHF (congestive heart failure) Heart failure chronicity: acute Heart failure type: unspecified Qualified Code(s): I50.9 - Heart failure, unspecified
[2018-10-07] MEDS: ACETAMINOPHEN 325 MG TAB PO PRN (22:05)
[2018-10-08] MEDS: LEVALBUTEROL 1.25MG/0.5ML NEB INH SCH ×4 (01:55→19:43)
[2018-10-08] MEDS: IPRATROPIUM BROMIDE NEB SOLN 0.02% 2.5 ML VIAL INH SCH ×4 (01:55→19:43)
[2018-10-08] MEDS: methylPREDNISolone 40 MG in SYRINGE 0 ML IV SCH ×3 (02:30→17:26)
[2018-10-08] MEDS: CEFEPIME 2,000 MG in SYRINGE 7.5 ML IV SCH (03:26)
[2018-10-08] MEDS: HEPARIN SOD 5,000 UNIT/0.5 ML VIAL SQ SCH ×3 (06:23→20:38)
--- NOTE | 2018-10-08 07:59 | History and Physical Report ---
DATE OF ADMISSION: 10/06/2018 CHIEF COMPLAINT: Shortness of breath. HISTORY OF PRESENT ILLNESS: This is a 73-year-old female with past medical history significant for chronic COPD, restrictive lung disease, pulmonary nodules, chronic respiratory failure, oxygen dependency on 3 liters, history of lower extremity venous stasis dermatitis, osteoarthrosis, low back pain with right sciatica which got worse now, also having pain in the left lower extremity, Religious, ambulatory dysfunction, hypertension, hyperlipidemia, presents with shortness of breath. Currently since August, she has been living in [facility]. She usually lives with her son. She is expecting to go back to her house, but last 1 week she is getting short of breath, with cough, initially was bringing up greenish phlegm, currently bringing up whitish phlegm. She was treated with Levaquin in the [facility], but was not getting better. Walking a few steps is making her short of breath. While speaking also, she is getting short of breath. Denies any chest pains. She has some nausea, poor appetite for the last few days. Denies any headaches. Today, her vision is somewhat blurry. No earache. She always has some runny nose. No sore throat, no difficulty swallowing. She says when she sleeps, she sleeps okay. Has orthopnea present for sometime she has to keep her bed elevated. Denies any abdominal pain. She has good bowel movement today. No pain while micturating. She has lower extremity edema that is chronic. No change in lower extremity edema. Denies any rash. She says she sometimes gets bruises and she stops the aspirin until the bruises are resolved and she restarts retaking the aspirin. In the ER, imaging studies showed pulmonary congestion and received a dose of Lasix also Solu-Medrol . Complains of dry mouth. Currently saturating okay on 4 liters. Somewhat tachypneic. ALLERGIES: No known drug allergies. PAST MEDICAL HISTORY: As mentioned above. PAST SURGICAL HISTORY: Colonoscopy, D and C, history of tubal ligation. FAMILY HISTORY: Father had lung disease, black lung. SOCIAL HISTORY: Religious, does not accept blood products, former smoker, quit in 1978. History of [id number] history. No alcohol abuse. No drug abuse. , lives with her son, but currently at [facility]. MEDICATIONS: The patient currently on Tylenol 650 mg p.o. q. 4 hours p.r.n., Ventolin 2 puffs every 3 hours p.r.n., aspirin 500 mg p.o. a.m., Dulcolax 10 mg daily as directed, Advair Diskus one inhalation b.i.d., guaifenesin 10 mL p.o. q. 4 hours p.r.n., Combivent 2 puffs inhalation q.i.d. p.r.n., Levaquin 500 mg p.o. daily, Lidocaine HCL menthol topically every 8 hours, milk of magnesia 30 mL p.o. daily p.r.n., Fleet enema daily p.r.n., vitamin B complex 1 capsule a.m. REVIEW OF SYSTEMS: As per HPI. Rest of review of symptoms negative. PHYSICAL EXAMINATION: GENERAL: The patient is of moderate build, seems to be in mild respiratory distress. VITAL SIGNS: Temperature 36.7, pulse 108, respiratory rate in 30s, blood pressure is 163/106, oxygen 91% on 4 liters. HEENT: No pallor, no icterus. Pupils are equal, round, and reactive to light. NECK: No JVD, no neck masses, no carotid bruits. CARDIOVASCULAR: S1, S2 heard, somewhat tachycardic. No murmurs. RESPIRATORY SYSTEM: Normal AP diameter. Mild tachypnea. Mild bibasilar crackles. No wheezing heard. ABDOMEN: Soft, bowel sounds heard, nontender. No distention. CENTRAL NERVOUS SYSTEM: Cranial nerves II-XII grossly intact. Nonfocal. EXTREMITIES: Bilateral lower extremity edema present, no erythema seen. LABORATORIES: WBC 11, hemoglobin 14.7, hematocrit 43.5, platelets 237. Sodium 140, potassium 3.7, chloride 108, bicarbonate 23, BUN 10, creatinine 0.7, serum glucose 97, calcium 8.8, total bilirubin 0.5, AST 23, ALT 21, alkaline phosphatase 95, total creatinine kinase 92. CK-MB 2.7. Troponin I less than 0.015. BNP 1323. Lipase 105. Influenza A and B negative. IMAGING DATA: Chest x-ray, pulmonary congestion. EKG: Normal sinus rhythm with rate of 97. No significant change from previous EKG. ASSESSMENT AND PLAN: This is a 73-year-old female who presents with shortness of breath,and chronic obstructive pulmonary disease and restrictive lung disease flare, possible congestive heart failure. 1. Shortness of breath, acute congestive heart failure, new onset, possibly right-sided heart failure. We will follow echocardiogram. Received dose of Lasix in the ER. Will do daily weights, I's and O's. Based on echo results and response to Lasix further diuretics. Cardiology consult for further recommendations. 2. Possible restrictive lung disease and copd exacerbation. Continue Solu-Medrol 40 t.i.d., nebs around the clock and p.r.n. home inhalers. Antibiotics, was getting Levaquin as out patient will change to cefepime and doxycycline and follow the response. 3. Ambulatory dysfunction, back pain, and sciatica. Currently at [facility] [place] Will get PT, OT, fall precautions. Social service to help with placement. 4. Hypertension, currently not on medication. We will monitor the blood pressure. 5. Lower extremity edema, seems to be chronic, venous stasis. We will also get Doppler to rule out DVT. 6. Deep venous thrombosis prophylaxis, we will place on heparin subcutaneous. 7. Code status, full code only if there is a chance of recovery. 8. Disposition: Admit to tele floor. PT, OT prior to discharge. Social service to help with discharge planning. MELITA
[2018-10-08] MEDS: FLUTICASONE/SALMETEROL 250/50 (ADVAIR) 14 PUFF/1 INHALER INH SCH ×2 (08:16→23:13)
[2018-10-08] MEDS: DOXYCYCLINE HYCLATE 100 MG CAP PO SCH ×2 (08:17→21:15)
[2018-10-08] MEDS: ASPIRIN 325 MG ECTAB PO SCH (08:17)
[2018-10-08] MEDS: VITAMIN B COMPLEX TAB PO SCH (08:17)
[2018-10-08] MEDS: VERAPAMIL HCL 180 MG TABCR PO SCH (08:17)
[2018-10-08] MEDS: MENTHOL-ZINC OXIDE 360 APPLN/120 GM TUBE EXT SCH ×3 (08:18→23:29)
--- NOTE | 2018-10-08 13:01 | Cardiology Progress Note ---
Date of Service October 08, 2018 Assessment & Plan (1) Acute and chronic respiratory failure: Patient presents with acute on chronic respiratory failure worsening shortness of breath. Current exam does not suggest significant congestive heart failure. BNP was not elevated for age. I do feel patient has a component of diastolic dysfunction secondary to rate with hyperdynamic LV function observed on echocardiogram patient tachycardic at minimal exertion. Optimally would treat with beta-blockers however given significance of patient's pulmonary disease will opt for verapamil 180 mg p.o. daily for rate control, aid in diastolic dysfunction. Would not aggressively pursue further diuresis at this time. Treat underlying pain and pulmonary issues Patient tolerating verapamil on initial dosing though is reluctant to consider long-term usage (2) HTN (hypertension): Verapamil should be helpful and manage (3) Diastolic dysfunction: Subjective Feels slightly improved today pulmonary status better better oxygenation. Still with bronchitic cough, no worsening edema.\ Had first dose of verapamil earlier this morning Physical Exam Vital Signs (Past 24 Hours): Last Vital Signs Temp 36.7 C 10/08/18 11:31 Pulse 98 H 10/08/18 11:31 Resp 22 10/08/18 11:31 BP 154/87 H 10/08/18 11:31 Pulse Ox 98 10/08/18 11:31 Constitutional: + ill appearing and + thin Eyes: PERRL, conjunctivae normal, anicteric sclerae Neck: trachea midline, no thyromegaly Respiratory: + audible wheezes Auscultation: + diminished lung sounds and + rhonchi (Coarse rhonchi with cough left greater than right) Cardiovascular: Rate/Rhythm: regular rate and regular rhythm Heart Sounds: normal S1 and normal S2; no gallop, no murmur and no cardiac rub Extremities: + edema (Trace only) Gastrointestinal (Abdomen): normal bowel sounds, soft, nontender, no hepatosplenomegaly Musculoskeletal: no cyanosis or clubbing, extremities motor strength 5/5
--- NOTE | 2018-10-08 16:02 | Hospitalist Progress Note ---
Date of Service October 08, 2018 Assessment & Plan (1) Acute and chronic respiratory failure: -Likely secondary to COPD exacerbation, acute on chronic bronchitis but no pneumonia - Continue IV solumedrol/antibiotics - Continue ATC nebs with prn up to every two hours although pt has not been nelli melendez to this point - Pt reports baseline oxygen requirement is 3-4 liters - she is very upset that [facility] was decreasing her O2 to 2 liters and reports they were not giving her inhalers to her correctly - Eventual PT/OT for deconditioning (was receiving therapy at [facility] per pt) but pt reports that she is "not ready" yet -Clinically better -Advised more ambulation -Continue oral doxycycline -Likely to be discharged in a day or 2 (2) CHF (congestive heart failure): - Appreciate cardiology input - no additional diuresis recommended at this point - Continue daily weights and i/o's - Verapamil being added - pt resistant to taking a new medication as she states her heart rate only goes up when she gets anxious. Attempted to explain why this medication would be helpful for her. -Appreciate cardiology input and recommendation -No overt CHF and does not require any extra Lasix (3) COPD exacerbation: hx of restrictive lung disease and copd - failed outpatient tx with levaquin for worsening respiratory status no obvious pneumonia on cx will empirically start on iv cefepime and doxycline - continue for now since patient clinically improving iv steroids started on admission - continue for at least another 24 hours Discontinue cefepime-negative blood culture and chest x-ray did not show any thai dence of pneumonia Continue oral doxycycline (4) Pulmonary nodule, right: followup with pcp (5) HTN (hypertension): Starting Verapamil for per cardio recs will monitor Clinically stable We will transfer to medical floor with advised for more ambulation Subjective 73 y/o female admitted overnight with acute on chronic respiratory failure - thought multi-factorial due to CHF and COPD exacerbation. She is seen sitting in chair this afternoon and reports marked improvement from admission. Dyspnea is much improved at rest although still SOB with any exertion. Coughing episodically - productive of clear sputum. She reports "I've really been able to clean out my lungs now with the medicine" - less chest congestion. Continues with intermittent wheezing, particularly right before a coughing fit. Appetite has improved - ate lunch without difficulty. Denies N/V. Last BM was yesterday - none yet today. Denies fevers or chills. Continues with generalized weakness and fatigue. Pt reports that her baseline oxygen requirement is "high 3 or low 4" and she is very concerned that we will attempt to wean her below this level. She was at [facility] for rehab but reports limited ability to participate due to her respiratory status. 10/08 Patient was seen and examined in telemetry She does not want to take her verapamil as prescribed Denies any symptoms of increasing shortness of breath and/or cough Says not yet ready to be discharged Constitutional: + fatigue and + weakness; no fever, no chills, no sweats and no anorexia Respiratory: + cough, + chest congestion, + dyspnea on exertion and + wheezing; no hemoptysis Musculoskeletal: + muscle weakness; no swelling Psychiatric: + anxiety Physical Exam Vital Signs (Past 24 Hours): Last Vital Signs Temp 36.6 C 10/08/18 15:16 Pulse 98 H 10/08/18 15:16 Resp 22 10/08/18 15:16 BP 143/91 H 10/08/18 15:16 Pulse Ox 92 10/08/18 15:16 Physical Exam: No apparent distress at rest. Minimal shortness of breath Constitutional: WD/WN, vitals as above no acute distress ENMT: external ear and nose normal, oropharynx normal Neck: trachea midline Respiratory: no respiratory distress and does not use accessory muscles Auscultation: + diminished lung sounds, + rhonchi (coarse rhonchi throughout) and + wheezes Cardiovascular: Rate/Rhythm: regular rate and regular rhythm Heart Sounds: no gallop, no murmur and no cardiac rub Extremities: + edema (trace pretibial); no calf tenderness Gastrointestinal (Abdomen): Inspection/Auscultation: normal bowel sounds; abdomen not distended Percussion/Palpation: abdomen soft; abdomen nontender and no guarding Psychiatric: Orientation: alert and oriented x 3 Affect: + anxious affect (at times) Thought Process: + tangential thought process Results & Data Medications Administered Current Inpatient Medications Acetaminophen (Tylenol) 650 mg PO Q4H PRN PRN Reason: Pain or Fever Stop: 11/05/18 21:18 Last Admin: 10/07/18 22:05 Dose: 650 mg Documented by: Al Hydrox/Mg Hydrox/Simethicone (Maalox) 15 ml PO Q4H PRN PRN Reason: Dyspepsia Stop: 11/05/18 21:18 Albuterol (Ventolin Hfa) 2 puffs INH Q3H PRN PRN Reason: Shortness Of Breath Stop: 11/05/18 21:18 Aspirin (Ecotrin) 325 mg PO DAILY [facility] Stop: 11/06/18 08:59 Last Admin: 10/08/18 08:17 Dose: 325 mg Documented by: Bisacodyl (Dulcolax) 10 mg MA Q5D PRN PRN Reason: Constipation Stop: 11/05/18 21:18 Calamine/Phenol (Calmoseptine) 1 appln EXT QS ARNOLDO Stop: 11/06/18 00:00 Last Admin: 10/08/18 08:18 Dose: 1 appln Documented by: Doxycycline Hyclate (Vibramycin) 100 mg PO BID [facility] Stop: 10/13/18 22:59 Last Admin: 10/08/18 08:17 Dose: 100 mg Documented by: Guaifenesin (Robitussin Sugar Free) 200 mg PO Q4H PRN PRN Reason: Cough Stop: 11/05/18 21:18 Heparin Sodium (Porcine) (Heparin Sodium (Porcine)) 5,000 units SQ Q8 ARNOLDO Stop: 11/05/18 21:59 Last Admin: 10/08/18 14:24 Dose: 5,000 units Documented by: Methylprednisolone 40 mg/ (Syringe) 0.64 mls @ 1.5 mls/min IV Q8H [facility] Stop: 11/06/18 01:59 Last Admin: 10/08/18 08:16 Dose: 1.5 mls/min Documented by: Ipratropium [place] (Atrovent 0.02% 0.5mg/2.5ml) 0.5 mg INH Q6R ARNOLDO Stop: 11/05/18 21:59 Last Admin: 10/08/18 14:18 Dose: 0.5 mg Documented by: Ipratropium [place] (Atrovent 0.02% 0.5mg/2.5ml) 0.5 mg INH Q2R PRN PRN Reason: SOB/WHEEZING Stop: 11/05/18 21:18 Levalbuterol HCl (Xopenex 1.25mg/0.5ml Neb) 1.25 mg INH Q6R ARNOLDO Stop: 11/05/18 21:59 Last Admin: 10/08/18 14:18 Dose: 1.25 mg Documented by: Levalbuterol HCl (Xopenex 1.25mg/0.5ml Neb) 1.25 mg INH Q2H PRN PRN Reason: SOB/WHEEZING Stop: 11/05/18 21:18 Nitroglycerin (Nitrostat) 0.4 mg SL UD PRN PRN Reason: Chest Pain Stop: 11/05/18 21:18 Ondansetron HCl (Zofran) 4 mg IV Q6H PRN PRN Reason: Nausea Stop: 11/05/18 21:18 Polyethylene Glycol (Miralax Powder Packet) 17 gm PO DAILY PRN PRN Reason: Constipation Stop: 11/05/18 21:18 Fluticasone/Salmeterol (Advair Diskus 250/50) 1 puffs INH [facility] Stop: 11/05/18 21:59 Last Admin: 10/08/18 08:16 Dose: 1 puffs Documented by: Sodium Biphosphate/Sodium Phosphate (Fleet Enema) 197 ml MA Q6D PRN PRN Reason: Constipation Stop: 11/05/18 21:18 Verapamil HCl (Calan Sr) 180 mg PO QAM [facility] Stop: 11/06/18 10:59 Last Admin: 10/08/18 08:17 Dose: 180 mg Documented by: Vitamin B Complex (Vitamin B Complex) [facility] Stop: 11/06/18 08:59 Last Admin: 10/08/18 08:17 Dose: 1 tab Documented by: (1) CHF (congestive heart failure) Heart failure chronicity: acute Heart failure type: unspecified Qualified Code(s): I50.9 - Heart failure, unspecified
[2018-10-08] MEDS: ACETAMINOPHEN 325 MG TAB PO PRN (17:57)
[2018-10-09] MEDS: IPRATROPIUM BROMIDE NEB SOLN 0.02% 2.5 ML VIAL INH SCH ×5 (01:42→22:15)
[2018-10-09] MEDS: LEVALBUTEROL 1.25MG/0.5ML NEB INH SCH ×5 (01:42→22:16)
[2018-10-09] MEDS: methylPREDNISolone 40 MG in SYRINGE 0 ML IV SCH ×3 (03:29→19:01)
[2018-10-09] MEDS: HEPARIN SOD 5,000 UNIT/0.5 ML VIAL SQ SCH ×3 (05:59→21:35)
[2018-10-09 08:24] LABS: Hematocrit (blood only) 41.9 % (37-47); Hemoglobin 14.1 g/dL (12.0-16.0); Mean Corpuscular Hgb Conc 33.7 g/dL (32-36); Mean Corpuscular Volume 87.7 fL (80-100); Mean Platelet Volume 12.2 fL (7.4-10.4); Platelet Count 245 K/uL (130-400); RDW Coefficient of Variation 15.4 % (11.5-14.5); RDW Standard Deviation 49.2 fL (36.4-46.3); Red Blood Count 4.78 M/uL (4.2-5.4); White Blood Count 17.25 K/uL (4.8-10.8)
[2018-10-09] MEDS: ASPIRIN 325 MG ECTAB PO SCH (08:40)
[2018-10-09] MEDS: MENTHOL-ZINC OXIDE 360 APPLN/120 GM TUBE EXT SCH ×2 (08:40→16:10)
[2018-10-09] MEDS: FLUTICASONE/SALMETEROL 250/50 (ADVAIR) 14 PUFF/1 INHALER INH SCH (08:40)
[2018-10-09] MEDS: VITAMIN B COMPLEX TAB PO SCH (08:40)
[2018-10-09] MEDS: DOXYCYCLINE HYCLATE 100 MG CAP PO SCH ×2 (08:40→22:41)
[2018-10-09] MEDS: VERAPAMIL HCL 180 MG TABCR PO SCH (08:44)
[2018-10-09] MEDS: ACETAMINOPHEN 325 MG TAB PO PRN (10:08)
--- NOTE | 2018-10-09 20:57 | Hospitalist Progress Note ---
Date of Service October 09, 2018 Assessment & Plan (1) Acute and chronic respiratory failure: Likely secondary to COPD exacerbation, acute on chronic bronchitis but no pneumonia Chronic Oxygen dependency: 3-4 liters Continue IV solumedrol/antibiotics Continue Nebs Continue current meds (2) CHF (congestive heart failure): Chronic diastolic CHF Appreciate cardiology input Started on Verpamil--patient has been refusing Monitor volume status (3) COPD exacerbation: H/O restrictive lung disease and COPD failed outpatient tx with levaquin received IV cefepime and doxycline Cefepime DCed Continue Doxy, Nebs, Steroids (4) Pulmonary nodule, right: follow up with pcp (5) HTN (hypertension): Starting Verapamil for per cardio recs Patient refuses to take DVT px: Heparin SQ Code Status: Full Code Subjective Patient is seen and examined at bedside Less SOB, cough BP remains elevated--Patient refused Verapamil Denies chest pain, dizziness No other comaplaints Physical Exam Vital Signs (Past 24 Hours): Last Vital Signs Temp 36.5 C 10/09/18 15:47 Pulse 95 H 10/09/18 15:47 Resp 22 10/09/18 15:47 BP 172/91 H 10/09/18 15:47 Pulse Ox 91 10/09/18 15:47 Physical Exam: Physical Exam: Vitals signs as noted above General Appearance:Moderately built and nourished, no apparent distress Head: normocephalic, Atraumatic Eyes: normal inspection, EOMI Neck: supple, Trachea midline Respiratory/Chest: Decreased breath sounds, B/L wheezing Cardiovascular: S1, S2, No murmur Abdomen/GI:Soft, Non tender, Bowel sounds present Extremities/Musculoskelatal:normal inspection, Trace edema Neurologic/Psych:AAOX3, grossly no focal neurological deficits Skin: normal color, warm Results & Data Laboratory Results Short CBC 10/09/18 Range/Units 07:39 WBC 17.25 H (4.8-10.8) K/uL Hgb 14.1 (12.0-16.0) g/dL Hct 41.9 (37-47) % Plt Count 245 (130-400) K/uL (1) CHF (congestive heart failure) Heart failure chronicity: acute Heart failure type: unspecified Qualified Co de(s): I50.9 - Heart failure, unspecified
[2018-10-10] MEDS: FLUTICASONE/SALMETEROL 250/50 (ADVAIR) 14 PUFF/1 INHALER INH SCH ×2 (00:01→09:07)
[2018-10-10] MEDS: ACETAMINOPHEN 325 MG TAB PO PRN ×3 (00:07→10:00)
[2018-10-10] MEDS: MENTHOL-ZINC OXIDE 360 APPLN/120 GM TUBE EXT SCH ×2 (00:08→09:07)
[2018-10-10] MEDS: IPRATROPIUM BROMIDE NEB SOLN 0.02% 2.5 ML VIAL INH SCH ×2 (01:59→07:48)
[2018-10-10] MEDS: LEVALBUTEROL 1.25MG/0.5ML NEB INH SCH ×2 (01:59→07:48)
[2018-10-10] MEDS: HEPARIN SOD 5,000 UNIT/0.5 ML VIAL SQ SCH ×2 (05:37→13:27)
[2018-10-10] MEDS ORDERED: methylPREDNISolone 40 MG in SYRINGE 0 ML IV SCH (06:00)
[2018-10-10 07:54] LABS: Hematocrit (blood only) 42.5 % (37-47); Hemoglobin 14.3 g/dL (12.0-16.0); Immature Granulocytes # (auto) 0.06 K/uL (0.00-0.02); Immature Granulocytes % (auto) 0.4 %; Lymphocytes # (auto) 0.52 K/uL (1.2-3.4); Lymphocytes % (auto) 3.7 %; Mean Corpuscular Hgb Conc 33.6 g/dL (32-36); Mean Corpuscular Volume 87.4 fL (80-100); Monocytes # (auto) 0.81 K/uL (0.11-0.59); Monocytes % (auto) 5.7 %; Neutrophils # (auto) 12.76 K/uL (1.4-6.5); Neutrophils % (auto) 90.2 %; Platelet Count 226 K/uL (130-400); RDW Coefficient of Variation 15.5 % (11.5-14.5); RDW Standard Deviation 49.2 fL (36.4-46.3); Red Blood Count 4.86 M/uL (4.2-5.4); White Blood Count 14.15 K/uL (4.8-10.8)
[2018-10-10 08:03] LABS: Partial Thromboplastin Ratio 0.9; Partial Thromboplastin Time 25.5 Seconds (21.0-31.0)
[2018-10-10 08:28] LABS: BUN Creatinine Ratio 53.8 (10-20); Calcium 8.9 mg/dl (8.5-10.1); Est GFR (African American) 100.1; Est GFR (Non-African American) 86.4; Potassium 4.3 mmol/L (3.5-5.1)
[2018-10-10] MEDS: VITAMIN B COMPLEX TAB PO SCH (09:08)
[2018-10-10] MEDS: ASPIRIN 325 MG ECTAB PO SCH (09:08)
[2018-10-10] MEDS: DOXYCYCLINE HYCLATE 100 MG CAP PO SCH (09:08)
[2018-10-10] MEDS: VERAPAMIL HCL 180 MG TABCR PO SCH (09:08)
--- NOTE | 2018-10-10 13:16 | Hospitalist Progress Note ---
Date of Service October 10, 2018 Assessment & Plan (1) Acute and chronic respiratory failure: Likely secondary to COPD exacerbation, acute on chronic bronchitis but no pneumonia Chronic Oxygen dependency: 3-4 liters Continue IV solumedrol/antibiotics>>Transition to PO prednisone Continue Nebs Continue current meds (2) CHF (congestive heart failure): Chronic diastolic CHF Appreciate cardiology input Started on Verpamil--patient has been refusing any new meds Monitor volume status (3) COPD exacerbation: H/O restrictive lung disease and COPD failed outpatient tx with levaquin received IV cefepime and doxycline Cefepime DCed Continue Doxy, Nebs, Steroids (4) Pulmonary nodule, right: follow up with pcp (5) HTN (hypertension): Started Verapamil as per cardio recs Patient refuses to take any new meds DVT px: Heparin SQ Code Status: Full Code Subjective Patient is seen and examined at bedside Doing much better today SOB much improved minimal cough BP remains elevated--Patient continues to refuse Verapamil or being started on new meds Denies chest pain, dizziness No other complaints Physical Exam Vital Signs (Past 24 Hours): Last Vital Signs Temp 36.6 C 10/10/18 11:10 Pulse 102 H 10/10/18 11:10 Resp 18 10/10/18 11:10 BP 156/94 H 10/10/18 11:10 Pulse Ox 93 10/10/18 11:10 Physical Exam: Physical Exam: Vitals signs as noted above General Appearance:Moderately built and nourished, no apparent distress Head: normocephalic, Atraumatic Eyes: normal inspection, EOMI Neck: supple, Trachea midline Respiratory/Chest: Decreased breath sounds, scattered wheezing Cardiovascular: S1, S2, No murmur Abdomen/GI:Soft, Non tender, Bowel sounds present Extremities/Musculoskelatal:normal inspection, Trace edema Neurologic/Psych:AAOX3, grossly no focal neurological deficits Skin: normal color, warm Results & Data Laboratory Results Short CBC 10/10/18 Range/Units 07:34 WBC 14.15 H (4.8-10.8) K/uL Hgb 14.3 (12.0-16.0) g/dL Hct 42.5 (37-47) % Plt Count 226 (130-400) K/uL BMP 10/10/18 07:34 Sodium 141 Potassium 4.3 Chloride 111 H Carbon Dioxide 23 BUN 37 H Creatinine 0.69 Glucose 133 H Calcium 8.9 (1) CHF (congestive heart failure) Heart failure chronicity: acute Heart failure type: unspecified Qualified Code(s): I50.9 - Heart failure, unspecified
--- NOTE | 2018-10-10 13:33 | Discharge Summary ---
Date of Service October 10, 2018 Admission HPI Per Admitting Provider This is 73F with PMH significant for COPD ,Restrictive lung disease, pulmonary nodules, chronic respiratory failure on 3lt oxygen,HTN, Cystocele,Chronic lower extremity edema, Chronic low back pain,ambulatory dysfunction, Jehovah witness who is currently living at [facility] since feburary for rehab was brought in because of ongoing sob and cough. Patient says since last one week she is having sob and cough with greenish sputum initially but currently bringing out whitish sputum. She was treated with levaquin at [facility] but it was not getting better. Walking few steps making her sob. In the ER currently she is getting sob on talking. Always has orthoapnea.Sleeps with elevated head.Denies chest pain. No fevers. No nausea. Normal bowel movements.Because of cystocele she sometimes has trouble micturating. Currently no burning micturation. Requiring higher oxygen in ER. CXR showed pulmonary congestion and received a dose of lasix in ER. Has chronic lower extremity edema and patient says they are not worsened lately. Admission Exam Per Admitting Provider General- adult Head- atraumatic Eyes- PERRL, EOMI, anicteric ENT- oropharynx clear Neck- supple, no JVD, no adenopathy, no thyromegaly; carotids +2/2, no bruits appreciated Lungs- clear to auscultation and percussion , tachyapneic, bibasilar crackles present, mild b/l ronchi Heart- regular rhythm; no murmur, no gallop, no rub appreciated Abdomen- normal bowel sounds, soft, nontender, no masses or hepatosplenomegaly Extremities- lower extremity edema present, mild erythema seen Neuro- alert, oriented x 3; PERRL, EOMI; no facial palsy; no dysarthria; non focalrigidity; patellar DTRs +2/2; toes downgoing bilaterally; finger to nose intact bilaterally Skin- warm & dry Principal Diagnosis Discharge Information Discharge Diagnosis Acute COPD Exacerbation Chronic diastolic CHF Hypertension Discharge Goals Decrease discomfort,Improve disease control, Improve function Discharge Activity Limitations Resume your previous activity Discharge Data Allergies Allergy/AdvReac Type Severity Reaction Status Date / Time No Known Allergies Allergy Verified 10/06/18 18:01 Consultations 10/06/18 19:09 ED Decision to Admit Stat 10/06/18 21:19 Consult Cardiology Routine Consult Case Management - Discharge Planning Routine Procedures Performed CXR: Pulmonary vascular congestion. Venous Doppler: No evidence of lower extremity DVT. Ordered Studies 10/06/18 21:19 US venous doppler HEATH GARCIA Urgent Hospital Course (1) Acute and chronic respiratory failure: Likely secondary to COPD exacerbation, acute on chronic bronchitis but no pneumonia Chronic Oxygen dependency: 3-4 liters Continue IV solumedrol/antibiotics>>Transition to PO prednisone Continue Nebs Continue current meds (2) CHF (congestive heart failure): Chronic diastolic CHF Appreciate cardiology input Started on Verpamil--patient has been refusing any new meds Monitor volume status (3) COPD exacerbation: H/O restrictive lung disease and COPD failed outpatient tx with levaquin received IV cefepime and doxycline Cefepime DCed Continue Doxy, Nebs, Steroids (4) Pulmonary nodule, right: follow up with pcp (5) HTN (hypertension): Started Verapamil as per cardio recs Patient refuses to take any new meds DVT px: Heparin SQ Code Status: Full Code Total Time Total Time Spent Total Time Spent (In Minutes): 38 minutes Total Time Includes: Examination of the Patient, Discharge Planning, Medication Reconciliation, Communication With Other Providers and Other Discharge Plan Discharge Items Patient Disposition: Transfer [facility] Fac Reason For Visit: SOB Discharge Diagnosis: Acute COPD Exacerbation Chronic diastolic CHF Hypertension Discharge Goals: Decrease discomfort, Improve disease control and Improve function Activity: Resume your previous activity Exercise/Sports: Gradually increase as tolerated Non-emergency contact: Primary Care Provider and Cadd Instructor Call non-emergency contact if: you have any medication questions, your symptoms worsen, your pain is not controlled, your pain is worsening, your pain is unusual for you, your pain is concerning for you and you have a fever Follow-up/Referrals: Dada Carr MD [Primary Care Provider] - Diet: Heart Healthy Addtl Provider Instructions: Follow up with your PCP on 10/14/18 at 1:00PM Follow up with your Pulmnologist in 2 weeks Discuss with your Physician regarding your blood pressure management if your blood pressure remains uncontrolled Complete the antibiotic and Prednisone course as prescribed Use Ventolin (Inhaler) every three hours as needed for shortness of breath/wheezing Prednisone Course: Start taking Prednisone 40mg for 3 days, then 30mg for 3 days, then 20mg for 3 days, then 10mg for 3 days and STOP Prescriptions: New doxycycline hyclate 100 mg Capsule 100 mg PO BID 4 Days Qty: 8 RF: 0 prednisone 10 mg tablet 10 mg PO UD 12 Days Qty: 30 RF: 0 Continued fluticasone-salmeterol [Advair Diskus] 250-50 mcg/dose Blister With Device 1 ft INHALATION AMHS RF: 0 acetaminophen [Tylenol] 325 mg Tablet 650 mg PO Q4H PRN (Reason: Fever Or Pain) RF: 0 guaifenesin [Siltussin SA] 100 mg/5 mL Liquid 10 ml PO Q4H PRN (Reason: Cough) RF: 0 aspirin 500 mg Tablet 500 mg PO QAM RF: 0 magnesium hydroxide [Milk of Magnesia] 400 mg/5 mL Suspension 30 ml PO DAILY PRN (Reason: Constipation) RF: 0 albuterol sulfate [Ventolin HFA] 90 mcg/actuation Hfa Aerosol Inhaler 2 puff INHALATION DIRECTED RF: 0 vitamin B complex Capsule 1 cap PO QAM RF: 0 Calmoseptine 0.44-20.6 % Ointment 1 applic TOPICAL DIRECTED RF: 0 Icy Hot(lidocaine HCl-menthol) 4-1 % Cream 1 applic TOPICAL Q8H RF: 0 bisacodyl [Dulcolax (bisacodyl)] 10 mg Suppository 10 mg NV DIRECTED PRN (Reason: Constipation) RF: 0 Fleet Enema 19-7 gram/118 mL Enema 197 ml NV DIRECTED PRN (Reason: Constipation) RF: 0 albuterol sulfate [Ventolin HFA] 90 mcg/actuation Hfa Aerosol Inhaler 2 puff INHALATION Q3H PRN (Reason: Shortness Of Breath) RF: 0 Combivent Respimat 20-100 mcg/actuation Mist 2 puff INHALATION QID PRN (Reason: Wheezing) RF: 0 Discontinued levofloxacin [Levaquin] 500 mg Tablet 500 mg PO DAILY RF: 0 Stand-Alone Forms: [facility] Discharge Orders: Discharge Order (Routine); Ordered 10/10/18 Ordered By: José Miguel Marley Skilled Items Patient informed of condition?: Yes DNR: No Discharge Level of Care: Skilled Communicable Disease: No Discharge Prognosis: Improving Admission Data Admit Date/Time: 03/10/19 19:58 Attending Provider: José Miguel Marley Admit Provider: Solitario Kwon Primary Care Provider: Dada Carr Other Providers: Diana Beverly ; Solitario Kwon ; Devon Garcia ; Adriel Gutierrez ; Hank Hanley ; Yusuf Castanon ; John Landis ; Jr Isaacs ; Kelly Amaral ; Alda Ibarra ; Alonso Key Service: Medical Other Interventions: Discharge Summary Assessment (RN) Last Done: 10/10/18 13:21 Pending Studies at Discharge: No DC Date/Time DO NOT enter until pt leaves facility: 10/10/18 15:08
== END 2018-10-10 15:08 | DRG 189 ==
LOC: ED 17:08 → 2E 19:58 → SUATTDRO 19:58 → 2E 20:55 → 4E 10-08 16:03

== ENCOUNTER 2018-11-19 02:08 | Inpatient (IN) ==
[2018-11-19] MEDS ORDERED: ALBUT/IPRATROP 3MG/0.5MG NEB 3 ML VIAL NEB ONE (02:20)
[2018-11-19] MEDS ORDERED: methylPREDNISolone 125 MG/2 ML VIAL IV STA (02:20)
[2018-11-19 02:52] LABS: Base Excess VBG 0.3 mEq/L; Basophils # (auto) 0.05 K/uL (0-0.2); Basophils % (auto) 0.6 %; Eosinophils # (auto) 0.14 K/uL (0-0.5); Eosinophils % (auto) 1.7 %; Hematocrit (blood only) 39.7 % (37-47); Hemoglobin 13.5 g/dL (12.0-16.0); Immature Granulocytes # (auto) 0.03 K/uL (0.00-0.02); Immature Granulocytes % (auto) 0.4 %; Lymphocytes # (auto) 1.86 K/uL (1.2-3.4); Lymphocytes % (auto) 22.7 %; Mean Corpuscular Volume 86.7 fL (80-100); Mean Platelet Volume 11.5 fL (7.4-10.4); Monocytes # (auto) 1.29 K/uL (0.11-0.59); Monocytes % (auto) 15.8 %; Neutrophils # (auto) 4.81 K/uL (1.4-6.5); Neutrophils % (auto) 58.8 %; Oxygen Saturation VBG 70.9 %; Platelet Count 263 K/uL (130-400); RDW Coefficient of Variation 14.8 % (11.5-14.5); RDW Standard Deviation 47.1 fL (36.4-46.3); Red Blood Count 4.58 M/uL (4.2-5.4); White Blood Count 8.18 K/uL (4.8-10.8); pH VBG 7.46 (7.36-7.41)
[2018-11-19 03:04] LABS: INR 1.2 (0.9-1.1); Prothrombin Time 11.9 Seconds (9.0-12.0)
[2018-11-19 03:09] LABS: Blood Urea Nitrogen 10 mg/dl (7-18); Carbon Dioxide 24 mmol/L (21-32); Chloride 105 mmol/L (98-107); Creatinine Clr Calc Pharmacy 63.2 ml/min; Est GFR (African American) 93.2; Est GFR (Non-African American) 80.4; Glucose 106 mg/dl (70-99); Potassium 3.7 mmol/L (3.5-5.1); Sodium 135 mmol/L (136-145)
[2018-11-19 03:14] LABS: NT Pro B Type Natriuretic Pept 1471 pg/ml (0-900); Troponin I < 0.015 ng/ml (0-0.045)
[2018-11-19] MEDS ORDERED: DOXYCYCLINE HYCLATE 100 MG in DEXTROSE 5% 100 ML IV STA (03:17)
[2018-11-19] MEDS ORDERED: FUROSEMIDE 40 MG in SYRINGE 0 ML IV ONE (04:51)
[2018-11-19] MEDS ORDERED: FUROSEMIDE 40 MG/4 ML VIAL IV ONE (04:54)
--- NOTE | 2018-11-19 05:50 | Emergency Department Note ---
Entered by Mary Sabillon acting as a scribe for ED Provider Note Name: Xiomara Soria Age: 73 Arrives Via: Ambulance Informant: Self CC: SOB HPI: A female arrives for evaluation after complaining of constant SOB that began a few hours MANAGER PHOTOGRAPHY. The patient reports that the staff at the shelter called the ambulance because she had difficulty breathing. She complains of a fever and coughing up sputum. The patient denies any abdominal pain, headache, and back pain. She reports that she was given a Duoneb MANAGER PHOTOGRAPHY. The patient states that she wears 3-4L NC at the shelter she resides at. She notes a history of chronic bronchitis. ROS: See above HPI for pertinent positives & negatives. A total of 10 systems reviewed and were otherwise negative. Past Medical History: Chronic bronchitis Past Surgical History: Tubal ligation, colonoscopy Family History: Family history is noncontributory. Social History: Lives at a shelter. Home Medications: See below. Allergies NKA Physical: Vitals: BP: 138/78, P: 99, R: 22, T: 98.1, O2 Sat: 94 Exam: GENERAL: Patient is unwell appearing and in mild distress. EYES: No scleral icterus, unremarkable pupils. ENT: Mucous membranes moist, no nasal congestion. NECK: No masses appreciated, no meningismus, trachea is midline. RESPIRATORY: Very tight lung sounds. Minimal air movement. No wheeze, no rhonchi. CARDIOVASCULAR: Tachycardic rate and regular rhythm. No murmurs, rubs, gallops appreciated. GASTROINTESTINAL: Abdomen soft, non-tender, no peritonitis. Bowel sounds positive. No masses appreciated. BACK: No midline tenderness, no CVA tenderness EXTREMITIES: Normal motion all extremities, no cyanosis. Mild edema in the bilateral lower legs. NEUROLOGIC: Alert and oriented, no acute motor or sensory deficits, no focal weakness, cranial nerves grossly intact. SKIN: No rash, no jaundice, no diaphoresis. ED Course: Prior Medical Record, Triage/Nursing Notes, Medications, Allergies reviewed by Me Vital Signs: reviewed and remarkable for tachycardia. Labs: Reviewed. See below for full. Interventions: Saline Lock, Solumedrol 125mg IV, Doxy 100mg IV, Duoneb 12mL hour long neb, Lasix 40mg IV Imaging: X ray results are stated below per my interpretation: Chest: 1 view: Bilateral perihilar infiltrates new form previous which are overlying congestive failure when compared to previous CXR. EKG: See below. Consults: 0330: I spoke with Dr. Kwon, [facility] hospitalist, about the patient's case. He will further evaluate the patient. Reassessments/Times: 0216: The patient was evaluated in room B07. A complete history and physical examination was performed. 0251: I reevaluated the patient. Her breathing was markedly improved. She states that she has been taking Levaquin for the past 4 days. 0330: I spoke with Dr. Kwon, [facility] hospitalist, about the patient's case. He will further evaluate the patient. Blood pressure: Normal. No Referral necessary Disposition: Hospitalization Differentials: Differential: Infectious, Reactive Airway Disease, Pneumonia, Pneumothorax, COPD, CHF, ACS, Pulmonary Embolism, MSK, GI, Dissection, amongst other pathologies. Medical Decision Makin yr old patient with restrictive lung disease and recent admission for CHF/COPD issues. She was doing well until a few days ago with worsening SHOB and cough, thus on Levaquin last 4 days. On exam very tight lung sounds and requiring venturi mask to get sats in to upper 80s/low 90s. Given hour long neb with IV steroids and gradually improving and lungs sounding a bit more wet as they opened up. Given IV lasix and will treat as acute COPD exacerbation. Added on Doxy as already has been on Levaquin. She is stable, breathing much improved though still requiring increased O2 flow rate. Symptoms consistent with exacerbation of her chronic disease and I do not feel that CT A chest required at this time. Patient comfortable with plan. Impression: Copd Exacerbation Congestive Heart Failure Vikas Warner MD The scribe's documentation has been prepared under my direction and personally reviewed by me in its entirety. I confirm that the note above accurately reflects all work, treatment, procedures, and medical decision making performed by me. Impression & Plan COPD exacerbation, CHF (congestive heart failure) Past Med/Surg History Medical History Chronic bronchitis (Chronic) Pulmonary nodule, right (Chronic) "last CT in 2010 revealed R lung nodule, recommended FNA or PET, patient refused further work up" HTN (hypertension) (Chronic) Venous stasis dermatitis of left lower extremity (Chronic) Obesity (BMI 35.0-39.9 without comorbidity) (Chronic) Surgical History History of tubal ligation (Resolved) History of colonoscopy (Resolved) History of D&C (Chronic) Family History Other Family history non-contributory Social History Preferred Language: Wolof Communication Ability: Effective Beliefs That Will Affect Care: Jehovah'S Witness Jehovah'S Witness Beliefs: jehovah's witnesses Current Living Situation: Family Feels Safe at Home: Yes Smoking Status: Former smoker Hx Alcohol Use: No Hx Substance Use: No Results & Data Vital Signs Vital Signs - 24 hr 11/19/18 02:18 11/19/18 02:24 11/19/18 02:35 Temperature 36.7 C Temperature Source Oral Sepsis Recent Fever Within 48 Hours No Sepsis Action Taken by Nursing No Action Required Pulse Rate 99 H Pulse Rate [Right Radial] 112 H Pulse Rhythm Regular Pulse Rhythm [Right Radial] Pulse Strength Normal Pulse Strength [Right Radial] Respiratory Rate 22 16 Respiratory Effort / Characteristics Spontaneous Labored Non-Labored Spontaneous Respiratory Depth Normal Respiratory Pattern Regular Blood Pressure 138/78 Blood Pressure [Right Arm] Blood Pressure Mean 98 Blood Pressure Mean [Right Arm] Pulse Oximetry 83 L 94 93 Oxygen Delivery Method Nasal Cannula Oxymask Nasal Cannula Oxygen Flow Rate 3 5 8 11/19/18 03:02 11/19/18 05:01 Temperature Temperature Source Sepsis Recent Fever Within 48 Hours Sepsis Action Taken by Nursing Pulse Rate Pulse Rate [Right Radial] 113 H 104 H Pulse Rhythm Pulse Rhythm [Right Radial] Regular Regular Pulse Strength Pulse Strength [Right Radial] Normal Normal Respiratory Rate 22 22 Respiratory Effort / Characteristics Non-Labored Spontaneous Non-Labored Spontaneous Respiratory Depth Normal Normal Respiratory Pattern Regular Blood Pressure Blood Pressure [Right Arm] 127/78 125/82 Blood Pressure Mean Blood Pressure Mean [Right Arm] 94 96 Pulse Oximetry 96 94 Oxygen Delivery Method Oxymask Oxymask Oxygen Flow Rate 5 10 Home Medications Current Medication List: was personally reviewed by me Laboratory Data Attestation: I reviewed the patient's lab results. Result diagrams: 11/19/18 02:39 11/19/18 02:39 Lab Results 11/19/18 11/19/18 11/19/18 Range/Units 02:39 02:39 02:39 WBC 8.18 (4.8-10.8) K/uL RBC 4.58 (4.2-5.4) M/uL Hgb 13.5 (12.0-16.0) g/dL Hct 39.7 (37-47) % MCV 86.7 (80-100) fL MCH 29.5 (25-34) pg MCHC 34.0 (32-36) g/dL RDW Std Deviation 47.1 H (36.4-46.3) fL RDW Coeff of Giuliana 14.8 H (11.5-14.5) % Plt Count 263 (130-400) K/uL MPV 11.5 H (7.4-10.4) fL Immature Gran % (Auto) 0.4 % Neut % (Auto) 58.8 % Lymph % (Auto) 22.7 % [place] % (Auto) 15.8 % Eos % (Auto) 1.7 % Baso % (Auto) 0.6 % Immature Gran # (Auto) 0.03 H (0.00-0.02) K/uL Neut # (Auto) 4.81 (1.4-6.5) K/uL Lymph # (Auto) 1.86 (1.2-3.4) K/uL [place] # (Auto) 1.29 H (0.11-0.59) K/uL Eos # (Auto) 0.14 (0-0.5) K/uL Baso # (Auto) 0.05 (0-0.2) K/uL PT 11.9 (9.0-12.0) Seconds INR 1.2 H (0.9-1.1) VBG pH (7.36-7.41) VBG pCO2 (38-50) mmHg VBG pO2 mmHg VBG HCO3 mmol/L VBG O2 Saturation % VBG Base Excess mEq/L Barometric Pressure mm/Hg Sodium 135 L (136-145) mmol/L Potassium 3.7 (3.5-5.1) mmol/L Chloride 105 (98-107) mmol/L Carbon Dioxide 24 (21-32) mmol/L Anion Gap 6.0 (3-11) BUN 10 (7-18) mg/dl Creatinine 0.74 (0.6-1.2) mg/dl Est Cr Clr Drug Dosing 63.2 ml/min Est GFR ( Amer) 93.2 Est GFR (Non-Af Amer) 80.4 BUN/Creatinine Ratio 13.0 (10-20) Glucose 106 H (70-99) mg/dl Lactate (0.4-2.0) mmol/L Calcium 9.0 (8.5-10.1) mg/dl Magnesium 2.0 (1.8-2.4) mg/dl Troponin I < 0.015 (0-0.045) ng/ml NT-Pro-B Natriuret Pep 1471 H (0-900) pg/ml 11/19/18 11/19/18 Range/Units 02:39 02:39 WBC (4.8-10.8) K/uL RBC (4.2-5.4) M/uL Hgb (12.0-16.0) g/dL Hct (37-47) % MCV (80-100) fL MCH (25-34) pg MCHC (32-36) g/dL RDW Std Deviation (36.4-46.3) fL RDW Coeff of Giuliana (11.5-14.5) % Plt Count (130-400) K/uL MPV (7.4-10.4) fL Immature Gran % (Auto) % Neut % (Auto) % Lymph % (Auto) % [place] % (Auto) % Eos % (Auto) % Baso % (Auto) % Immature Gran # (Auto) (0.00-0.02) K/uL Neut # (Auto) (1.4-6.5) K/uL Lymph # (Auto) (1.2-3.4) K/uL [place] # (Auto) (0.11-0.59) K/uL Eos # (Auto) (0-0.5) K/uL Baso # (Auto) (0-0.2) K/uL PT (9.0-12.0) Seconds INR (0.9-1.1) VBG pH 7.46 H (7.36-7.41) VBG pCO2 34 L (38-50) mmHg VBG pO2 36 mmHg VBG HCO3 24 mmol/L VBG O2 Saturation 70.9 % VBG Base Excess 0.3 mEq/L Barometric Pressure 733.7 mm/Hg Sodium (136-145) mmol/L Potassium (3.5-5.1) mmol/L Chloride (98-107) mmol/L Carbon Dioxide (21-32) mmol/L Anion Gap (3-11) BUN (7-18) mg/dl Creatinine (0.6-1.2) mg/dl Est Cr Clr Drug Dosing ml/min Est GFR ( Amer) Est GFR (Non-Af Amer) BUN/Creatinine Ratio (10-20) Glucose (70-99) mg/dl Lactate 1.2 (0.4-2.0) mmol/L Calcium (8.5-10.1) mg/dl Magnesium (1.8-2.4) mg/dl Troponin I (0-0.045) ng/ml NT-Pro-B Natriuret Pep (0-900) pg/ml Administered Medications Discontinued Medications Albuterol (Duoneb) 12 ml NEB ONE ONE Stop: 11/19/18 02:21 Last Admin: 11/19/18 02:32 Dose: 12 ml Documented by: [id number] Furosemide (Lasix) Confirm Administered Dose 40 mg IV .STK-MED ONE Stop: 11/19/18 04:55 Last Admin: 11/19/18 04:55 Dose: 40 mg Documented by: [id number] Doxycycline Hyclate 100 mg/ (Dextrose) 110 mls @ 50 mls/hr IV NOW STA Stop: 11/19/18 05:28 Last Admin: 11/19/18 04:01 Dose: 50 mls/hr Documented by: [id number] Furosemide 40 mg/ Syringe 4 mls @ 4 mls/min IV ONE ONE Stop: 11/19/18 04:52 Last Admin: 11/19/18 04:55 Dose: Not Given Documented by: [id number] Methylprednisolone (Solumedrol) 125 mg IV NOW STA Stop: 11/19/18 02:21 Last Admin: 11/19/18 03:04 Dose: 125 mg Documented by: [id number] ECG Data Attestation: I personally reviewed and interpreted this ECG as follows: Indication: SOB/dyspnea Rate (beats per minute): 109 Findings: + RBBB; no acute ischemic change and no ectopy Blood Pressure Blood Pressure Findings: Normal blood pressure Blood Pressure Disposition: did not require urgent referral Discharge Plan Visit Data Chief Complaint: Shortness of Breath/Dyspnea Stated Complaint: SHORT OF BREATH ED Provider: Vikas Warner Discharge Problem: COPD exacerbation, CHF (congestive heart failure) Patient Disposition: Being Evaluated by Hospitalist Forms Stand Alone Forms: [facility] Prescriptions Prescriptions: No Action ondansetron HCl [Zofran] 4 mg Tablet 4 mg PO Q6 PRN (Reason: Nausea) RF: 0 aspirin 325 mg Tablet,Delayed Release (Dr/Ec) 325 mg PO QAM RF: 0 amlodipine [Norvasc] 10 mg Tablet 10 mg PO QAM RF: 0 levothyroxine 50 mcg Tablet 50 mcg PO DAILYBB RF: 0 fluticasone propion-salmeterol [Advair Diskus] 500-50 mcg/dose Blister With Device 1 inh INHALATION BID RF: 0 furosemide [Lasix] 20 mg Tablet 20 mg PO QAM RF: 0 levofloxacin [Levaquin] 500 mg Tablet 500 mg PO QAM RF: 0 cholecalciferol (vitamin D3) [Vitamin D3] 1,000 unit Capsule 1,000 unit PO QAM RF: 0 potassium gluconate 595 mg (99 mg) Tablet 595 mg PO QAM RF: 0 Vinegar, Apple Cider 1 tbsp PO QID PRN (Reason: Diarrhea) RF: 0 acetaminophen [Tylenol] 325 mg Tablet 650 mg PO Q4H MDD 3000 MG/24 HOURS PRN (Reason: Fever Or Pain) RF: 0 guaifenesin [Siltussin SA] 100 mg/5 mL Liquid 10 ml PO Q4H PRN (Reason: Cough) RF: 0 magnesium hydroxide [Milk of Magnesia] 400 mg/5 mL Suspension 30 ml PO DAILY PRN (Reason: Constipation) RF: 0 albuterol sulfate [Ventolin HFA] 90 mcg/actuation Hfa Aerosol Inhaler 2 puff INHALATION DIRECTED RF: 0 vitamin B complex Capsule 1 cap PO QAM RF: 0 Icy Hot(lidocaine HCl-menthol) 4-1 % Cream 1 applic TOPICAL Q8H RF: 0 bisacodyl [Dulcolax (bisacodyl)] 10 mg Suppository 10 mg HI DIRECTED PRN (Reason: Constipation) RF: 0 Fleet Enema 19-7 gram/118 mL Enema 197 ml HI DIRECTED PRN (Reason: Constipation) RF: 0 albuterol sulfate [Ventolin HFA] 90 mcg/actuation Hfa Aerosol Inhaler 2 puff INHALATION Q3H PRN (Reason: Shortness Of Breath) RF: 0 Combivent Respimat 20-100 mcg/actuation Mist 2 puff INHALATION QID PRN (Reason: Wheezing) RF: 0 Referrals Referrals: Dada Carr MD [Outside Practitioners] - The scribe's documentation has been prepared under my direction and personally reviewed by me in its entirety. I confirm that the note above accurately reflects all work, treatment, procedures, and medical decision making performed by me.
--- NOTE | 2018-11-19 06:34 | XRay Report ---
XR chest 1V portable HISTORY: 73 years-old Female SHOB chronic bronchitis with shortness of breath COMPARISON: Chest radiograph 10/06/2018, CTA chest 03/14/2018 TECHNIQUE: Portable AP view of the chest FINDINGS: Cardiac silhouette appears unchanged. Findings of pulmonary arterial hypertension redemonstrated. Sacha cification of the thoracic aortic arch. Advanced emphysema with chronic interstitial coarsening redem onstrated. 1.2 cm nodular opacity of the lateral right lung base. Linear subsegmental bibasilar atele ctasis/scarring. Worsened interstitial opacities are noted throughout the left lung. No pneumothorax or pleural effusion. Degenerative changes of the shoulders and spine. IMPRESSION: 1. Advanced emphysema with chronic interstitial coarsening and pulmonary arterial hypertension. 2. 1.2 cm nodule of the basal right lower lobe redemonstrated. 3. Progressed interstitial opacities throughout the left lung. Asymmetric pulmonary edema versus infe ctious or inflammatory pneumonitis are differential considerations. The above report was generated using voice recognition software. It may contain grammatical, syntax o r spelling errors. Electronically signed by: Booker Rogers M.D. 11/19/2018 6:32 AM
[2018-11-19] MEDS ORDERED: ONDANSETRON 4 MG TAB PO PRN (06:53)
[2018-11-19] MEDS ORDERED: IPRATROPIUM BROMIDE/ALBUTEROL respimat INH INH PRN (06:53)
[2018-11-19] MEDS ORDERED: BISACODYL 10 MG SUPP PR PRN (06:53)
[2018-11-19] MEDS ORDERED: NITROGLYCERIN SL 0.4 MG/TAB TAB SL PRN (06:53)
[2018-11-19] MEDS ORDERED: ACETAMINOPHEN 325 MG TAB PO PRN (06:53)
[2018-11-19] MEDS ORDERED: ONDANSETRON INJ 2 MG/ML 2 ML VIAL IV PRN (06:53)
[2018-11-19] MEDS ORDERED: MAGNESIUM HYDROXIDE SUSP 30 ML UDC PO PRN (06:53)
[2018-11-19] MEDS ORDERED: SOD PHOSPHATE/SOD BIPHOSPHATE ENEMA 132 ML BTL PR PRN ×2 (06:53→07:05)
[2018-11-19] MEDS ORDERED: guaiFENesin SUGAR FREE 200 MG/10 ML UDC PO PRN (06:53)
[2018-11-19] MEDS: IPRATROPIUM BROMIDE NEB SOLN 0.02% 2.5 ML VIAL INH SCH ×3 (07:07→19:05)
[2018-11-19] MEDS: LEVALBUTEROL 1.25MG/0.5ML NEB INH SCH ×3 (07:07→19:05)
--- NOTE | 2018-11-19 07:36 | History and Physical Report ---
DATE OF ADMISSION: 11/19/2018 CHIEF COMPLAINT: Shortness of breath. HISTORY OF PRESENT ILLNESS: This is a 73-year-old female with past medical history significant for chronic COPD, restrictive lung disease, pulmonary nodules, chronic respiratory failure on oxygen 3 liters, history of lower extremity venous stasis dermatitis, osteoarthritis, low back pain with sciatica and the patient is a Jehovah's witness, ambulatory dysfunction, hypertension, hyperlipidemia, currently she is in [facility], presents with shortness of breath. She was here on 10/06/2018 with some shortness of breath and found to be from COPD and CHF, seen by cardiology, prescribed verapamil, but she refused to take new medications, seemed improved and she was discharged back to [facility]. The patient says she was not totally fully recovered since then, she feels short of breath, but lately in the last 3 or 4 days, it got worse and also lower extremities legs are getting more swollen. In her residential, they gave some Lasix, but it did not help her that much, walking a few steps making her short of breath. She does not have any cough. She thinks when she had a fever.Because of the ongoing shortness of breath, she was brought to the hospital. She is requiring initially 10 liters, currently 6 liters. Chest x-ray showed possible CHF and also lower extremity swollen. Denies any chest pain, no nausea, no abdominal pain, no headache, no blurred vision, no runny nose, no sore throat. She is having normal bowel movements, normal bladder movements. Her appetite is very poor, not eating much. ALLERGIES: No known drug allergies. PAST MEDICAL HISTORY: As mentioned above. PAST SURGICAL HISTORY: Colonoscopy, D and C and history of tubal ligation. FAMILY HISTORY: Significant for lung disease and black lung. SOCIAL HISTORY: The patient is a Jehovah's witness. former smoker, quit in 1978, [id number] smoking history. No alcohol abuse. No drug abuse. . Initially, lived with her son, but currently living in [facility]. REVIEW OF SYMPTOMS: As per HPI. Rest of review of symptoms is negative. MEDICATIONS: The patient is currently on Tylenol 650 mg p.o. q. 6 hours p.r.n., albuterol 2 puffs q. 3 hours p.r.n., amlodipine 10 mg p.o. a.m., aspirin 325 mg p.o. a.m., Dulcolax 10 mg IA as directed, vitamin D 1000 units p.o. a.m., Combivent 2 puffs q.i.d., Fleet enema p.r.n., Advair Diskus one inhalation b.i.d., Lasix 20 mg p.o. a.m., guaifenesin 10 mL p.o. q. 4 hours p.r.n., Lidocaine HCL-menthol application topically q. 8 hours, Levaquin 500 mg p.o. a.m., levothyroxine 50 mcg p.o. daily, magnesium hydroxide, milk of magnesia 30 mL p.o. daily p.r.n., Zofran 4 mg p.o. q. 6 hours p.r.n., potassium gluconate 595 mg p.o. daily, vitamin B complex 1 capsule daily. PHYSICAL EXAMINATION: GENERAL: The patient is alert and awake, not in acute distress. VITAL SIGNS: Temperature 36.7, pulse 104, respiratory rate 22, blood pressure 125/82, oxygen 94% on OxyMask, 10 liters. HEENT: No pallor, no icterus. Pupils equal, round, and reactive to light. NECK: No JVD. No neck masses. No carotid bruits. CARDIOVASCULAR: S1, S2 heard, regular rate and rhythm, no murmur, no gallop. RESPIRATORY SYSTEM: Normal AP diameter. Bilateral crackles heard. No wheezing. ABDOMEN: Soft, bowel sounds present. Nontender. No distention. CENTRAL NERVOUS SYSTEM: Cranial nerves II-XII grossly intact. Nonfocal. EXTREMITIES: Bilateral lower extremity gross edema present. LABORATORY DATA: WBC 8.1, hemoglobin 13.5, hematocrit 39.7, platelets 263. PT 1.9, INR 1.2. Venous blood gas, pH of 7.46, pCO2 of 34, pO2 of 36 and bicarbonate 24. Sodium 135, potassium 3.7, chloride 105, bicarbonate 24, BUN 10, creatinine 0.7, serum glucose 106. Lactate 1.2, calcium 9, magnesium 2. Troponin I less than 0.015. BNP 14,000. Chest x-ray looks like congestive changes. EKG: Sinus tachycardia with rate of 109, no acute ST changes seen. ASSESSMENT AND PLAN: This is a 73-year-old female who presents with shortness of breath. 1. Shortness of breath, acute on chronic respiratory failure, , mostly likely secondary to her acute on chronic diastolic congestive heart failure. Recent echo in September showed normal EF with grade 2 diastolic dysfunction. Received a dose of Lasix in the ER. We will continue IV Lasix 40 b.i.d. Daily weights, I's and O's. Consult cardiology for further recommendation for adjustment of medications. The patient seemed to be somewhat noncompliant. Close monitor on tele floor. 2. Shortness of breath, could be from COPD exacerbation, though no obvious wheezing heard on exam. given Solu-Medrol in the ER. We will continue Solu-Medrol and fast taper of steroids, nebs around the clock and home inhalers.Continue Levaquin short course. 3. Pulmonary nodules needs followup. 4.hypertension, currently on amlodipine. We will monitor the blood pressure. 5. Hypothyroidism, on Synthroid. 6. Deep venous thrombosis prophylaxis. Heparin subQ. 7. Disposition: Close monitoring in tele floor. Level 1 full code only if there is a chance of recovery. The patient is Jehovah's witness. MTDD
[2018-11-19] MEDS ORDERED: XOPENEX/ATROVENT 1.25mg/0.5MG NEB COMBO NEB SCH (08:00)
[2018-11-19] MEDS ORDERED: ALBUTEROL HFA 8 GM INHALER INH SCH (08:00)
[2018-11-19] MEDS: AMLODIPINE BESYLATE 5 MG TAB PO SCH ×2 (08:14→08:54)
[2018-11-19] MEDS: CHOLECALCIFEROL 1,000 UNITS TAB PO SCH (08:14)
[2018-11-19] MEDS: ASPIRIN 325 MG ECTAB PO SCH (08:15)
[2018-11-19] MEDS: LEVOTHYROXINE SODIUM 50 MCG TABLET PO SCH (08:15)
[2018-11-19] MEDS: VITAMIN B COMPLEX TAB PO SCH (08:15)
[2018-11-19] MEDS: HEPARIN SOD 5,000 UNIT/0.5 ML VIAL SQ SCH ×4 (08:16→22:24)
[2018-11-19] MEDS ORDERED: NON-FORMULARY MEDICATION (Potassium Gluconate 595 MG) PO SCH (09:00)
[2018-11-19] MEDS ORDERED: FUROSEMIDE 40 MG in SYRINGE 0 ML IV SCH (09:00)
--- NOTE | 2018-11-19 10:00 | Cardiology Consultation ---
Date of Consultation November 19, 2018 Assessment & Plan (1) Diastolic CHF, chronic: The patient had an echocardiogram last admission. If indicated no significant valvular pathology with preserved left ventricular systolic function and evidence for grade 1 diastolic dysfunction. The findings are consistent with chronic diastolic heart failure. I would continue diuresis at this time. Patient is refusing to take any additional medications. During her previous admission it was recommended that we utilize verapamil to treat her hypertension and diastolic dysfunction. Patient has lower extremity edema which is exacerbated by the amlodipine that she is now taking. Unfortunately the patient is refusing medical advice. (2) COPD exacerbation: The patient denies ever having significant lung disease. It would be helpful to have a pulmonary consult however she may not be compliant with testing or treatment. (3) Medical non-compliance: History of Present Illness Attending Physician: Balaji Hall MD History of Present Illness This is a 73-year-old female who was just recently discharged from this hospital approximately 2 weeks ago. She was sent to [facility]. Apparently while there she developed progressive shortness of breath and was returned to the hospital. She was previously admitted with a diagnosis of exacerbation of COPD along with diastolic heart failure. The patient refused medications during her last hospital admission and continues to do so during this admission. She states that she does not believe in medications and can heal herself. Allergies Allergy/AdvReac Type Severity Reaction Status Date / Time No Known Allergies Allergy Verified 11/19/18 02:47 Home Medications Home Medications Medication Instructions Recorded Confirmed Type Combivent Respimat 2 puff INHALATION QID PRN 10/06/18 11/19/18 History Fleet Enema 197 ml AK DIRECTED PRN 10/06/18 11/19/18 History Icy Hot(lidocaine HCl-menthol) 1 applic TOPICAL Q8H 10/06/18 11/19/18 History acetaminophen [Tylenol] 650 mg PO Q4H PRN MDD 3000 MG/24 10/06/18 11/19/18 History HOURS albuterol sulfate [Ventolin HFA] 2 puff INHALATION DIRECTED 10/06/18 11/19/18 History albuterol sulfate [Ventolin HFA] 2 puff INHALATION Q3H PRN 10/06/18 11/19/18 History bisacodyl [Dulcolax (bisacodyl)] 10 mg AK DIRECTED PRN 10/06/18 11/19/18 History guaifenesin [Siltussin SA] 10 ml PO Q4H PRN 10/06/18 11/19/18 History magnesium hydroxide [Milk of 30 ml PO DAILY PRN 10/06/18 11/19/18 History Magnesia] vitamin B complex 1 cap PO QAM 10/06/18 11/19/18 History Vinegar, Apple Cider 1 tbsp PO QID PRN 11/19/18 11/19/18 History amlodipine [Norvasc] 10 mg PO QAM 11/19/18 11/19/18 History aspirin 325 mg PO QAM 11/19/18 11/19/18 History cholecalciferol (vitamin D3) 1,000 unit PO QAM 11/19/18 11/19/18 History [Vitamin D3] fluticasone propion-salmeterol 1 inh INHALATION BID 11/19/18 11/19/18 History [Advair Diskus] furosemide [Lasix] 20 mg PO QAM 11/19/18 11/19/18 History levofloxacin [Levaquin] 500 mg PO QAM 11/19/18 11/19/18 History levothyroxine 50 mcg PO DAILYBB 11/19/18 11/19/18 History ondansetron HCl [Zofran] 4 mg PO Q6 PRN 11/19/18 11/19/18 History potassium gluconate 595 mg PO QAM 11/19/18 11/19/18 History Patient History Medical History Chronic bronchitis (Chronic) Pulmonary nodule, right (Chronic) "last CT in 2010 revealed R lung nodule, recommended FNA or PET, patient refused further work up" HTN (hypertension) (Chronic) Venous stasis dermatitis of left lower extremity (Chronic) Obesity (BMI 35.0-39.9 without comorbidity) (Chronic) Surgical History History of tubal ligation (Resolved) History of colonoscopy (Resolved) History of D&C (Chronic) Family History Other Family history non-contributory Social History Preferred Language: Malay Communication Ability: Effective Loss Control Consultant Required: No Beliefs That Will Affect Care: Sabianism Sabianism Beliefs: Latter day Current Living Situation: Skilled Nursing Current Living Situation Comment: at [facility] for rehab Other Information That Helps Us Care for You: No Feels Safe at Home: Yes Safety Concerns: Feels Safe At This Time Smoking Status: Former smoker Hx Alcohol Use: No Hx Substance Use: No Review of Systems Review of Systems: Review of Systems: See HPI for pertinent positives. All other 10 point review of systems are negative. Physical Exam Physical Exam: General: no acute distress and stated age Head: normocephalic, no masses, lesions, tenderness or abnormalities Eyes: conjunctiva are pink and non-injected, sclera clear Neck: supple, no adenopathy, no bruits, normal jugular venous pulse, no hepatojugular reflux Chest: normal shape and normal respiratory effort Lungs: clear to auscultation and percussion Cardiac Exam: - regular rate & rhythm, no murmurs gallops or rubs - normal S1, normal S2 Pulses: 2(+) throughout Abdomen: abdomen soft, non-tender, no abnormal masses and no hepatosplenomegaly Musculoskeletal: no gait disturbance, no joint inflammation, no deforming arthritis Extremities: Edema of the mid cast bilaterally Neuro: grossly normal exam Results & Data Vital Signs (Past 12 Hours) Vital Signs Temp Pulse Pulse Resp BP BP Pulse Ox 11/19/18 07:07 93 H 20 90 11/19/18 06:11 36.9 C 98 H 24 124/81 94 11/19/18 05:56 104 H 24 128/88 91 11/19/18 05:01 104 H 22 125/82 94 11/19/18 03:02 113 H 22 127/78 96 11/19/18 02:35 112 H 16 93 11/19/18 02:24 94 11/19/18 02:18 36.7 C 99 H 22 138/78 83 L Laboratory Results Laboratory Results - last 24 hr 11/19/18 11/19/18 11/19/18 02:39 02:39 02:39 WBC 8.18 RBC 4.58 Hgb 13.5 Hct 39.7 MCV 86.7 MCH 29.5 MCHC 34.0 RDW Std Deviation 47.1 H RDW Coeff of Giuliana 14.8 H Plt Count 263 MPV 11.5 H Immature Gran % (Auto) 0.4 Neut % (Auto) 58.8 Lymph % (Auto) 22.7 Banner % (Auto) 15.8 Eos % (Auto) 1.7 Baso % (Auto) 0.6 Immature Gran # (Auto) 0.03 H Neut # (Auto) 4.81 Lymph # (Auto) 1.86 Banner # (Auto) 1.29 H Eos # (Auto) 0.14 Baso # (Auto) 0.05 PT 11.9 INR 1.2 H VBG pH VBG pCO2 VBG pO2 VBG HCO3 VBG O2 Saturation VBG Base Excess Barometric Pressure Sodium 135 L Potassium 3.7 Chloride 105 Carbon Dioxide 24 Anion Gap 6.0 BUN 10 Creatinine 0.74 Est Cr Clr Drug Dosing 63.2 Est GFR ( Amer) 93.2 Est GFR (Non-Af Amer) 80.4 BUN/Creatinine Ratio 13.0 Glucose 106 H Lactate Calcium 9.0 Magnesium 2.0 Troponin I < 0.015 NT-Pro-B Natriuret Pep 1471 H 11/19/18 11/19/18 02:39 02:39 WBC RBC Hgb Hct MCV MCH MCHC RDW Std Deviation RDW Coeff of Giuliana Plt Count MPV Immature Gran % (Auto) Neut % (Auto) Lymph % (Auto) Banner % (Auto) Eos % (Auto) Baso % (Auto) Immature Gran # (Auto) Neut # (Auto) Lymph # (Auto) Banner # (Auto) Eos # (Auto) Baso # (Auto) PT INR VBG pH 7.46 H VBG pCO2 34 L VBG pO2 36 VBG HCO3 24 VBG O2 Saturation 70.9 VBG Base Excess 0.3 Barometric Pressure 733.7 Sodium Potassium Chloride Carbon Dioxide Anion Gap BUN Creatinine Est Cr Clr Drug Dosing Est GFR ( Amer) Est GFR (Non-Af Amer) BUN/Creatinine Ratio Glucose Lactate 1.2 Calcium Magnesium Troponin I NT-Pro-B Natriuret Pep Medications Administered Current Inpatient Medications Acetaminophen (Tylenol) 650 mg PO Q4H PRN PRN Reason: Pain or Fever Stop: 12/19/18 06:52 Albuterol (Ventolin Hfa) 2 puffs INH BID@0800,2000 ARNOLDO Stop: 12/19/18 07:59 Albuterol (Combivent Respimat) 2 puffs INH QID PRN PRN Reason: Wheezing Stop: 12/19/18 06:52 Amlodipine Besylate (Norvasc) 10 mg PO QAM [facility] Stop: 12/19/18 08:59 Last Admin: 11/19/18 08:54 Dose: Not Given Documented by: Aspirin (Ecotrin) 325 mg PO QAM ARNOLDO Stop: 12/19/18 08:59 Last Admin: 11/19/18 08:15 Dose: 325 mg Documented by: Bisacodyl (Dulcolax) 10 mg AK DAILY PRN PRN Reason: Constipation Stop: 12/19/18 06:52 Guaifenesin (Robitussin Sugar Free) 200 mg PO Q4H PRN PRN Reason: Cough Stop: 12/19/18 06:52 Heparin Sodium (Porcine) (Heparin Sodium (Porcine)) 5,000 units SQ Q8 ARNOLDO Stop: 12/19/18 07:14 Last Admin: 11/19/18 08:25 Dose: Not Given Documented by: Methylprednisolone 40 mg/ (Syringe) 0.64 mls @ 1.5 mls/min IV Q8H [facility] Stop: 12/19/18 09:59 Furosemide 40 mg/ Syringe 4 mls @ 4 mls/min IV BID [facility] Stop: 12/19/18 08:59 Last Admin: 11/19/18 08:15 Dose: 4 mls/min Documented by: Ipratropium [place] (Atrovent 0.02% 0.5mg/2.5ml) 0.5 mg INH Q6R [facility] Stop: 12/19/18 07:59 Last Admin: 11/19/18 07:07 Dose: 0.5 mg Documented by: Levalbuterol HCl (Xopenex 1.25mg/0.5ml Neb) 1.25 mg INH Q6R [facility] Stop: 12/19/18 07:59 Last Admin: 11/19/18 07:07 Dose: 1.25 mg Documented by: Levofloxacin (Levaquin) 500 mg PO DAILY@1100 [facility] Stop: 11/26/18 10:59 Levothyroxine Sodium (Synthroid) 50 mcg PO DAILYBB [facility] Stop: 12/19/18 07:14 Last Admin: 11/19/18 08:15 Dose: 50 mcg Documented by: Magnesium Hydroxide (Milk Of Magnesia) 30 ml PO DAILY PRN PRN Reason: Constipation Stop: 12/19/18 06:52 Miscellaneous (Order Awaiting Action) 1 ea N/A QS [facility] Stop: 12/19/18 07:59 Last Admin: 11/19/18 07:32 Dose: Not Given Documented by: Nitroglycerin (Nitrostat) 0.4 mg SL UD PRN PRN Reason: Chest Pain Stop: 12/19/18 06:52 Ondansetron HCl (Zofran) 4 mg IV Q6H PRN PRN Reason: Nausea Stop: 12/19/18 06:52 Ondansetron HCl (Zofran) 4 mg PO Q6 PRN PRN Reason: Nausea Stop: 12/19/18 06:52 Fluticasone/Salmeterol (Advair Diskus 500/50) 1 puffs INH BID [facility] Stop: 12/19/18 08:59 Sodium Biphosphate/Sodium Phosphate (Fleet Enema) 132 ml AK DAILY PRN PRN Reason: Constipation Stop: 12/19/18 07:04 Vitamin B Complex (Vitamin B Complex) 1 tab PO [facility] Stop: 12/19/18 08:59 Last Admin: 11/19/18 08:15 Dose: 1 tab Documented by: Vitamin D (Vitamin D3) 1,000 units PO [facility] Stop: 12/19/18 08:59 Last Admin: 11/19/18 08:14 Dose: 1,000 units Documented by:
[2018-11-19] MEDS: methylPREDNISolone 40 MG in SYRINGE 0 ML IV SCH ×2 (10:30→18:18)
[2018-11-19] MEDS: FLUTICASONE/SALMETEROL (ADVAIR) 500/50 INH 14 PUFF INH SCH ×2 (10:30→19:58)
[2018-11-19] MEDS: levoFLOXacin 500 MG TAB PO SCH (10:31)
--- NOTE | 2018-11-19 13:45 | Hospitalist Progress Note ---
Date of Service November 19, 2018 Assessment & Plan (1) Acute and chronic respiratory failure: Acute on chronic respiratory failure -fdc use of oxygen of patient reporting 3 to 4 liters/min -20 year smoking history but quite many years ago as per patient -Recent echo in September showed normal EF with grade 2 diastolic dysfunction. -admission CXR: 1. Advanced emphysema with chronic interstitial coarsening and pulmonary arterial hypertension. 2. 1.2 cm nodule of the basal right lower lobe redemonstrated. 3. Progressed interstitial opacities throughout the left lung. Asymmetric pulmonary edema versus infectious or inflammatory pneumonitis are differential considerations. - unclear what is the cause of the increase in oxygen requirements on this admission Possible COPD exacerbation -received Solu-Medrol in the ER. continue Solu-Medrol and fast taper of steroids, nebs around the clock and home inhalers -Continue Levaquin short course. Pulmonary nodules -right lower lobe needs followup. Diastolic CHF, chronic -cardiology impressions not suggestive of acute cardiac exacerbation -will switch patient from IV Lasix to home dose oral Lasix 20 mg daily Hypertension -continue on amlodipine. Hypothyroidism -on Synthroid. Deep venous thrombosis prophylaxis. Heparin subQ. Patient also reporting she is Pentecostal and would not want blood transfusions. Code Status as allows for chest compressions and defibrillation but NO INTUBATION Subjective Patient seen and examined on oxygen mask. able to speak in long sentences but some use of the respiratory muscles, mild tachypnea. generally no distress but notes that breathing is not quite at baseline. otherwise patient is pleasant and awake and alert. denies chest pain. denies abdomen pain. no headache. no lightheadedness Patient also reporting she is Pentecostal and would not want blood transfusions. Code Status as allows for chest compressions and defibrillation but NO INTUBATION Physical Exam Constitutional: well nourished Eyes: PERRL, conjunctivae normal, anicteric sclerae EOM intact bilaterally ENMT: external ear and nose normal, oropharynx normal Neck: trachea midline, no thyromegaly normal visual inspection Respiratory: + uses accessory muscles and able to speak in complete sentences Cardiovascular: Rate/Rhythm: regular rate Gastrointestinal (Abdomen): normal bowel sounds, soft, nontender, no hepatosplenomegaly Musculoskeletal: Head/Neck/Chest: normocephalic and head atraumatic Neurologic: PERRL, EOMI, accommodation nl, no face palsy, no dysarthria Psychiatric: A+Ox3, euthymic affect Results & Data Vital Signs (Past 12 Hours) Vital Signs Temp Pulse Pulse Resp BP BP Pulse Ox 11/19/18 11:17 36.7 C 100 H 18 142/89 H 91 11/19/18 07:07 93 H 20 90 11/19/18 06:11 36.9 C 98 H 24 124/81 94 11/19/18 05:56 104 H 24 128/88 91 11/19/18 05:01 104 H 22 125/82 94 11/19/18 03:02 113 H 22 127/78 96 11/19/18 02:35 112 H 16 93 11/19/18 02:24 94 11/19/18 02:18 36.7 C 99 H 22 138/78 83 L
[2018-11-19] MEDS: ACETAMINOPHEN 325 MG TAB PO PRN (14:50)
[2018-11-20] MEDS: ACETAMINOPHEN 325 MG TAB PO PRN ×2 (00:19→23:40)
[2018-11-20] MEDS: LEVALBUTEROL 1.25MG/0.5ML NEB INH SCH ×4 (01:36→18:58)
[2018-11-20] MEDS: IPRATROPIUM BROMIDE NEB SOLN 0.02% 2.5 ML VIAL INH SCH ×4 (01:36→18:58)
[2018-11-20] MEDS: methylPREDNISolone 40 MG in SYRINGE 0 ML IV SCH ×3 (01:50→19:49)
[2018-11-20] MEDS: HEPARIN SOD 5,000 UNIT/0.5 ML VIAL SQ SCH ×3 (05:24→19:54)
[2018-11-20] MEDS: LEVOTHYROXINE SODIUM 50 MCG TABLET PO SCH (05:38)
[2018-11-20 05:51] LABS: Basophils # (auto) 0.01 K/uL (0-0.2); Basophils % (auto) 0.1 %; Hematocrit (blood only) 40.1 % (37-47); Hemoglobin 13.6 g/dL (12.0-16.0); Immature Granulocytes # (auto) 0.04 K/uL (0.00-0.02); Immature Granulocytes % (auto) 0.4 %; Lymphocytes # (auto) 0.73 K/uL (1.2-3.4); Lymphocytes % (auto) 7.4 %; Mean Corpuscular Hgb Conc 33.9 g/dL (32-36); Mean Corpuscular Volume 87.2 fL (80-100); Mean Platelet Volume 11.9 fL (7.4-10.4); Neutrophils # (auto) 8.63 K/uL (1.4-6.5); Neutrophils % (auto) 87.1 %; Platelet Count 278 K/uL (130-400); RDW Coefficient of Variation 14.7 % (11.5-14.5); RDW Standard Deviation 46.7 fL (36.4-46.3); White Blood Count 9.91 K/uL (4.8-10.8)
[2018-11-20 06:22] LABS: Albumin Globulin Ratio 0.7 (0.9-2); BUN Creatinine Ratio 21.8 (10-20); Bilirubin,Total 0.2 mg/dl (0.2-1); Calcium 9.4 mg/dl (8.5-10.1); Creatinine Clr Calc Pharmacy 56.9 ml/min; Est GFR (African American) 77.7; Globulin 4.3 gm/dl (2.5-4.0); Magnesium 2.1 mg/dl (1.8-2.4); Potassium 3.4 mmol/L (3.5-5.1); Total Protein 7.3 gm/dl (6.4-8.2)
[2018-11-20] MEDS: ASPIRIN 325 MG ECTAB PO SCH ×2 (07:58→07:59)
[2018-11-20] MEDS: AMLODIPINE BESYLATE 5 MG TAB PO SCH ×2 (08:00→08:04)
[2018-11-20] MEDS: VITAMIN B COMPLEX TAB PO SCH (08:00)
[2018-11-20] MEDS: CHOLECALCIFEROL 1,000 UNITS TAB PO SCH (08:00)
[2018-11-20] MEDS: FLUTICASONE/SALMETEROL (ADVAIR) 500/50 INH 14 PUFF INH SCH ×2 (08:00→19:51)
[2018-11-20] MEDS: FUROSEMIDE 20 MG TAB PO SCH (08:01)
--- NOTE | 2018-11-20 08:21 | Hospitalist Progress Note ---
Date of Service November 20, 2018 Assessment & Plan (1) Acute and chronic respiratory failure: Home oxygen: 3-4 L ; Here - 5-6 L oxygen . On admission- CHF exacerbation Hx of smoking 20 years with advanced Emphysema, Chronic interstitial changes, PHT. -Recent echo in September showed normal EF with grade 2 diastolic dysfunction. -CXR on admission-Advanced emphysema with chronic interstitial coarsening and pulmonary arterial hypertension.2. 1.2 cm nodule of the basal right lower lobe redemonstrated. 3. Progressed interstitial opacities throughout the left lung. Asymmetric pulmonary edema versus infectious or inflammatory pneumonitis are differential considerations. Possible COPD exacerbation -Continue with IV steroids with taper---> Taper down to q 12 hours today -Nebs QID -Levofloxacin short course Diastolic CHF, acute on chronic exacerbation- Resolved -Mild fluid overload on admission. Now resolved. Refusing any additional medications and medical advice. -Lasix IV was changed to PO lasix 20 mg daily as at home -Hesitant to take lasix here. But now okay after discussion Hypokalemia Replaced Pulmonary nodules 1.2 Cm- basal right lower lobe. Follow up Hypertension -continue on amlodipine. Does have lower extremity edema. Verapamil considered by cardiology for hypertension and diastolic dysfunction , but patient is refusing to make any changes. Hypothyroidism -on Synthroid. Medical non compliance Patient is non compliant. States that she does not believe in medications and can heal herself. Challenging as does not follow advice Deep venous thrombosis prophylaxis. Heparin subQ. Patient also reporting she is Buddhism and would not want blood transfusions. Code Status as allows for chest compressions and defibrillation but NO INTUBATION Disposition Medical mx in progress Subjective Patient is doing better. Still on 5-6 L oxgyen. Prefers using oxy mask over nasal cannula. Not in distress Denies any worsening of cough. No chest pain, nausea, vomiting, fever, chills Has a lot of questions about the K pill and wants to be off lasix Physical Exam Physical Exam: General: no acute distress and stated age Neck: supple, no JVD Chest: normal shape and normal respiratory effort Lungs: bilaterally decreased breath sounds Cardiac Exam: - regular rate & rhythm, no murmurs gallops or rubs - normal S1, n ormal S2 Extremities: Edema resolved. Results & Data Vital Signs (Past 12 Hours) Vital Signs Temp Pulse Pulse Resp BP BP Pulse Ox 11/20/18 07:08 36.5 C 104 H 20 145/92 H 95 11/20/18 07:02 79 18 95 11/20/18 04:30 36.4 C L 98 H 20 122/84 94 11/20/18 01:37 107 H 22 97 11/20/18 00:07 101 H 11/19/18 23:30 36.4 C L 102 H 18 142/79 H 92
--- NOTE | 2018-11-20 09:46 | Cardiology Progress Note ---
Date of Service November 20, 2018 Assessment & Plan (1) Diastolic CHF, chronic: The patient had an echocardiogram last admission. It indicated no significant valvular pathology with preserved left ventricular systolic function and evidence for grade 1 diastolic dysfunction. The findings are consistent with chronic diastolic heart failure. I would lower her diuretics and start oral. Potassium needs to be supplemented. (2) COPD exacerbation: The patient denies ever having significant lung disease. It would be helpful to have a pulmonary consult however she may not be compliant with testing or treatment. (3) Medical non-compliance: Subjective No new cardiac complaints today. Review of Systems Review of Systems: All systems reviewed & are unremarkable except as noted in HPI & below No additional comments Physical Exam Physical Exam: General: no acute distress and stated age Head: normocephalic, no masses, lesions, tenderness or abnormalities Eyes: conjunctiva are pink and non-injected, sclera clear Neck: supple, no adenopathy, no bruits, normal jugular venous pulse, no hepatojugular reflux Chest: normal shape and normal respiratory effort Lungs: clear to auscultation and percussion Cardiac Exam: - regular rate & rhythm, no murmurs gallops or rubs - normal S1, normal S2 Pulses: 2(+) throughout Abdomen: abdomen soft, non-tender, no abnormal masses and no hepatosplenomegaly Musculoskeletal: no gait disturbance, no joint inflammation, no deforming arthritis Extremities: Edema resolved. Neuro: grossly normal exam Results & Data Vital Signs (Past 12 Hours) Vital Signs Temp Pulse Pulse Resp BP BP Pulse Ox 11/20/18 07:08 36.5 C 104 H 20 145/92 H 95 11/20/18 07:02 79 18 95 11/20/18 04:30 36.4 C L 98 H 20 122/84 94 11/20/18 01:37 107 H 22 97 11/20/18 00:07 101 H 11/19/18 23:30 36.4 C L 102 H 18 142/79 H 92
[2018-11-20] MEDS ORDERED: POTASSIUM CHLORIDE 20 MEQ TABCR PO ONE (10:00)
[2018-11-20] MEDS: levoFLOXacin 500 MG TAB PO SCH (10:46)
[2018-11-20] MEDS ORDERED: SALINE NASAL 225 SPRAYS, GENTAMICIN SULFATE 60 MG, BARCODE IDENTIFIER 0 EA PRN (17:02)
[2018-11-20] MEDS ORDERED: SODIUM CHLORIDE 0.65% NA SOLN 45 ML (OCEAN) PRN (17:16)
[2018-11-21] MEDS: IPRATROPIUM BROMIDE NEB SOLN 0.02% 2.5 ML VIAL INH SCH ×4 (01:09→18:46)
[2018-11-21] MEDS: LEVALBUTEROL 1.25MG/0.5ML NEB INH SCH ×4 (01:10→18:45)
[2018-11-21 05:51] LABS: Hematocrit (blood only) 40.9 % (37-47); Mean Corpuscular Hgb Conc 34.2 g/dL (32-36); Mean Platelet Volume 11.8 fL (7.4-10.4); Platelet Count 328 K/uL (130-400); RDW Coefficient of Variation 14.9 % (11.5-14.5); RDW Standard Deviation 47.5 fL (36.4-46.3); White Blood Count 17.73 K/uL (4.8-10.8)
[2018-11-21] MEDS: HEPARIN SOD 5,000 UNIT/0.5 ML VIAL SQ SCH ×4 (06:16→19:54)
[2018-11-21] MEDS: LEVOTHYROXINE SODIUM 50 MCG TABLET PO SCH (06:16)
[2018-11-21 06:20] LABS: BUN Creatinine Ratio 31.9 (10-20); Calcium 9.6 mg/dl (8.5-10.1); Creatinine Clr Calc Pharmacy 52.6 ml/min; Est GFR (African American) 70.7; Potassium 4.2 mmol/L (3.5-5.1)
[2018-11-21] MEDS: ASPIRIN 325 MG ECTAB PO SCH (07:57)
[2018-11-21] MEDS: AMLODIPINE BESYLATE 5 MG TAB PO SCH (07:58)
[2018-11-21] MEDS: FLUTICASONE/SALMETEROL (ADVAIR) 500/50 INH 14 PUFF INH SCH (08:00)
[2018-11-21] MEDS: VITAMIN B COMPLEX TAB PO SCH (08:01)
[2018-11-21] MEDS: POTASSIUM CHLORIDE 20 MEQ TABCR PO SCH (08:01)
[2018-11-21] MEDS: methylPREDNISolone 40 MG in SYRINGE 0 ML IV SCH (08:01)
[2018-11-21] MEDS: CHOLECALCIFEROL 1,000 UNITS TAB PO SCH (08:01)
[2018-11-21] MEDS: FUROSEMIDE 20 MG TAB PO SCH (08:01)
[2018-11-21] MEDS: levoFLOXacin 500 MG TAB PO SCH (11:06)
--- NOTE | 2018-11-21 11:25 | Cardiology Progress Note ---
Date of Service November 21, 2018 Assessment & Plan (1) Diastolic CHF, chronic: Seems to be improved (2) COPD exacerbation: The patient denies ever having significant lung disease. It would be helpful to have a pulmonary consult however she may not be compliant with testing or treatment. (3) Medical non-compliance: Patient is refusing medications today. Subjective The patient is sitting in a chair. She is comfortable. She is refusing medications today. Review of Systems Review of Systems: All systems reviewed & are unremarkable except as noted in HPI & below No change Physical Exam Physical Exam: General: no acute distress and stated age Head: normocephalic, no masses, lesions, tenderness or abnormalities Eyes: conjunctiva are pink and non-injected, sclera clear Neck: supple, no adenopathy, no bruits, normal jugular venous pulse, no hepatojugular reflux Chest: normal shape and normal respiratory effort Lungs: clear to auscultation and percussion Cardiac Exam: - regular rate & rhythm, no murmurs gallops or rubs - normal S1, normal S2 Pulses: 2(+) throughout Abdomen: abdomen soft, non-tender, no abnormal masses and no hepatosplenomegaly Musculoskeletal: no gait disturbance, no joint inflammation, no deforming arthritis Extremities: no edema and no cyanosis Neuro: grossly normal exam Results & Data Vital Signs (Past 12 Hours) Vital Signs Temp Pulse Pulse Resp BP BP Pulse Ox 11/21/18 10:46 36.4 C L 99 H 19 153/94 H 94 11/21/18 07:01 36.2 C L 94 H 18 147/84 H 92 11/21/18 06:58 98 H 20 96 11/21/18 03:28 36.4 C L 98 H 18 140/90 91 11/21/18 01:11 104 H 20 92 11/21/18 00:17 36.5 C 99 H 18 162/91 H 94 11/21/18 00:00 106 H Laboratory Results Laboratory Results - last 24 hr 11/21/18 11/21/18 05:15 05:15 WBC 17.73 H RBC 4.70 Hgb 14.0 Hct 40.9 MCV 87.0 MCH 29.8 MCHC 34.2 RDW Std Deviation 47.5 H RDW Coeff of Giuliana 14.9 H Plt Count 328 MPV 11.8 H Sodium 137 Potassium 4.2 D Chloride 105 Carbon Dioxide 26 Anion Gap 6.0 BUN 30 H D Creatinine 0.93 Est Cr Clr Drug Dosing 52.6 Est GFR ( Amer) 70.7 Est GFR (Non-Af Amer) 61.0 BUN/Creatinine Ratio 31.9 H Glucose 157 H Calcium 9.6 Medications Administered Current Inpatient Medications Acetaminophen (Tylenol) 650 mg PO Q4H PRN PRN Reason: Pain or Fever Stop: 12/19/18 06:52 Last Admin: 11/20/18 23:40 Dose: 650 mg Documented by: Albuterol (Ventolin Hfa) 2 puffs INH BID@0800,1999 [facility] Stop: 12/19/18 07:59 Last Admin: 11/19/18 14:17 Dose: Not Given Documented by: Albuterol (Combivent Respimat) 2 puffs INH QID PRN PRN Reason: Wheezing Stop: 12/19/18 06:52 Amlodipine Bes[facility] ([facility]asc) [facility] [place] [facility] [place]: 12/19/18 08:59 Last Admin: 11/21/18 07:58 Dose: Not Given Documented by: Aspirin (Ecotrin) 325 mg PO QAM [facility] Stop: 12/19/18 08:59 Last Admin: 11/21/18 07:57 Dose: Not Given Documented by: Bisacodyl (Dulcolax) 10 mg SC DAILY PRN PRN Reason: Constipation Stop: 12/19/18 06:52 Furosemide (Lasix) 20 mg PO QAM [facility] Stop: 12/20/18 08:59 Last Admin: 11/21/18 08:01 Dose: 20 mg Documented by: Guaifenesin (Robitussin Sugar Free) 200 mg PO Q4H PRN PRN Reason: Cough Stop: 12/19/18 06:52 Heparin Sodium (Porcine) (Heparin Sodium (Porcine)) 5,000 units SQ Q8 [facility] Stop: 12/19/18 07:14 Last Admin: 11/21/18 06:20 Dose: Not Given Documented by: Methylprednisolone 40 mg/ (Syringe) 0.64 mls @ 1.5 mls/min IV Q12 [facility] Stop: 12/20/18 20:59 Last Admin: 11/21/18 08:01 Dose: 1.5 mls/min Documented by: Ipratropium [place] (Atrovent 0.02% 0.5mg/2.5ml) 0.5 mg INH Q6R [facility] Stop: 12/19/18 07:59 Last Admin: 11/21/18 06:58 Dose: 0.5 mg Documented by: Levalbuterol HCl (Xopenex 1.25mg/0.5ml Neb) 1.25 mg INH Q6R [facility] Stop: 12/19/18 07:59 Last Admin: 11/21/18 06:58 Dose: 1.25 mg Documented by: Levofloxacin (Levaquin) 500 mg PO DAILY@1100 [facility] Stop: 11/26/18 10:59 Last Admin: 11/21/18 11:06 Dose: 500 mg Documented by: Levothyroxine Sodium (Synthroid) 50 mcg PO DAILYBB [facility] Stop: 12/19/18 07:14 Last Admin: 11/21/18 06:16 Dose: 50 mcg Documented by: Magnesium Hydroxide (Milk Of Magnesia) 30 ml PO DAILY PRN PRN Reason: Constipation Stop: 12/19/18 06:52 Last Admin: 11/20/18 15:45 Dose: 30 ml Documented by: Miscellaneous (Order Awaiting Action) 1 ea N/A QS [facility] Stop: 12/19/18 07:59 Last Admin: 11/21/18 07:18 Dose: Not Given Documented by: Nitroglycerin (Nitrostat) 0.4 mg SL UD PRN PRN Reason: Chest Pain Stop: 12/19/18 06:52 Ondansetron HCl (Zofran) 4 mg IV Q6H PRN PRN Reason: Nausea Stop: 12/19/18 06:52 Ondansetron HCl (Zofran) 4 mg PO Q6 PRN PRN Reason: Nausea Stop: 12/19/18 06:52 Potassium Chloride (Klor-Con M20) 20 meq PO QAM [facility] Stop: 12/21/18 08:59 Last Admin: 11/21/18 08:01 Dose: 20 meq Documented by: Fluticasone/Salmeterol (Advair Diskus 500/50) 1 puffs INH BID [facility] Stop: 12/19/18 08:59 Last Admin: 11/21/18 08:00 Dose: 1 puffs Documented by: Sodium Biphosphate/Sodium Phosphate (Fleet Enema) 132 ml SC DAILY PRN PRN Reason: Constipation Stop: 12/19/18 07:04 Sodium Chloride ([place] Nasal) 1 sprays NA PRN PRN PRN Reason: Dryness Stop: 12/20/18 17:15 Vitamin B Complex (Vitamin B Complex) 1 tab PO [facility] Stop: 12/19/18 08:59 Last Admin: 11/21/18 08:01 Dose: 1 tab Documented by: Vitamin D (Vitamin D3) 1,000 units PO [facility] Stop: 12/19/18 08:59 Last Admin: 11/21/18 08:01 Dose: 1,000 units Documented by:
--- NOTE | 2018-11-21 12:26 | Hospitalist Progress Note ---
Date of Service November 21, 2018 Assessment & Plan (1) Acute and chronic respiratory failure: Home oxygen: 3-4 L ; Here - 5 L oxygen . Hx of smoking 20 years with advanced Emphysema, Chronic interstitial changes, PHT. -Recent echo in September showed normal EF with grade 2 diastolic dysfunction. -CXR on admission-Advanced emphysema with chronic interstitial coarsening and pulmonary arterial hypertension.2. 1.2 cm nodule of the basal right lower lobe redemonstrated. 3. Progressed interstitial opacities throughout the left lung. Asymmetric pulmonary edema versus infectious or inflammatory pneumonitis are differential considerations. Possible COPD exacerbation No prior diagnosis but CXR shows advanced emphysema with chronic interstitial coarsening -Continue with IV steroids with taper---> discontinue and change to PO prednisone 40 mg daily -Nebs QID -Levofloxacin short course- Day 3/ Diastolic CHF, acute on chronic exacerbation- Resolved -Mild fluid overload on admission. Now resolved. Refusing any additional medications and medical advice. -Lasix IV was changed to PO lasix 20 mg daily as at home -Hesitant to take lasix here. But now okay after discussion Hypokalemia Resolved Pulmonary nodules 1.2 Cm- basal right lower lobe. Follow up Hypertension -continue on amlodipine. Does have lower extremity edema. Verapamil considered by cardiology for hypertension and diastolic dysfunction , but patient is refusing to make any changes. Hypothyroidism -on Synthroid. Medical non compliance Patient is non compliant. States that she does not believe in medications and can heal herself. Challenging as does not follow advice and recommendations Deep venous thrombosis prophylaxis. Heparin subQ. Patient also reporting she is [employer] and would not want blood transfusions. Code Status as allows for chest compressions and defibrillation but NO INTUBA TION Disposition Medical mx in progress Try to wean her down on oxygen Likely discharge in AM - [facility] Subjective Patient is comfortable in chair. C/o SOB but seems to be comfortable and in no distress. Able to bring up more sputum. Refusing her medications again today. Physical Exam Physical Exam: General: no acute distress and stated age Neck: supple, no JVD Chest: normal shape and normal respiratory effort Lungs: bilaterally decreased breath sounds Cardiac Exam: - regular rate & rhythm, no murmurs gallops or rubs - normal S1, normal S2 Extremities: Edema resolved. Results & Data Vital Signs (Past 12 Hours) Vital Signs Temp Pulse Resp BP BP Pulse Ox 11/21/18 10:46 36.4 C L 99 H 19 153/94 H 94 11/21/18 07:01 36.2 C L 94 H 18 147/84 H 92 11/21/18 06:58 98 H 20 96 11/21/18 03:28 36.4 C L 98 H 18 140/90 91 11/21/18 01:11 104 H 20 92
[2018-11-22] MEDS: FLUTICASONE/SALMETEROL (ADVAIR) 500/50 INH 14 PUFF INH SCH ×2 (00:14→08:06)
[2018-11-22] MEDS: IPRATROPIUM BROMIDE NEB SOLN 0.02% 2.5 ML VIAL INH SCH ×3 (01:34→14:18)
[2018-11-22] MEDS: LEVALBUTEROL 1.25MG/0.5ML NEB INH SCH ×3 (01:37→14:19)
[2018-11-22] MEDS: ACETAMINOPHEN 325 MG TAB PO PRN (02:02)
[2018-11-22] MEDS: LEVOTHYROXINE SODIUM 50 MCG TABLET PO SCH (05:51)
[2018-11-22] MEDS: HEPARIN SOD 5,000 UNIT/0.5 ML VIAL SQ SCH ×2 (05:52→11:26)
[2018-11-22 06:46] LABS: Hemoglobin 13.3 g/dL (12.0-16.0); Mean Corpuscular Hgb Conc 34.1 g/dL (32-36); Mean Corpuscular Volume 87.6 fL (80-100); Mean Platelet Volume 11.3 fL (7.4-10.4); Platelet Count 320 K/uL (130-400); RDW Coefficient of Variation 15.2 % (11.5-14.5); RDW Standard Deviation 49.1 fL (36.4-46.3); Red Blood Count 4.45 M/uL (4.2-5.4); White Blood Count 16.94 K/uL (4.8-10.8)
[2018-11-22] MEDS: ASPIRIN 325 MG ECTAB PO SCH (08:06)
[2018-11-22] MEDS: FUROSEMIDE 20 MG TAB PO SCH (08:06)
[2018-11-22] MEDS: POTASSIUM CHLORIDE 20 MEQ TABCR PO SCH (08:06)
[2018-11-22] MEDS: AMLODIPINE BESYLATE 5 MG TAB PO SCH (08:07)
[2018-11-22] MEDS: CHOLECALCIFEROL 1,000 UNITS TAB PO SCH (08:07)
[2018-11-22] MEDS: VITAMIN B COMPLEX TAB PO SCH (08:07)
--- NOTE | 2018-11-22 08:50 | Cardiology Progress Note ---
Date of Service November 22, 2018 Assessment & Plan (1) Diastolic CHF, chronic: Improved and on home diuretics. From a cardiac standpoint the patient can be discharged back to [facility]. (2) COPD exacerbation: Stable and improved. (3) Medical non-compliance: Patient is refusing medications today. The patient is hypertensive today but is refusing amlodipine. Will not consider any other medications. She is also refusing her aspirin. Subjective No new cardiac complaints today. The patient does have a sore mouth due to thrush from her Advair inhaler. Review of Systems Review of Systems: All systems reviewed & are unremarkable except as noted in HPI & below No change Physical Exam Physical Exam: General: no acute distress and stated age, patient has white pustules on her tongue and oral cavity consistent with thrush Head: normocephalic, no masses, lesions, tenderness or abnormalities Eyes: conjunctiva are pink and non-injected, sclera clear Neck: supple, no adenopathy, no bruits, normal jugular venous pulse, no hepatojugular reflux Chest: normal shape and normal respiratory effort Lungs: clear to auscultation and percussion Cardiac Exam: - regular rate & rhythm, no murmurs gallops or rubs - normal S1, normal S2 Pulses: 2(+) throughout Abdomen: abdomen soft, non-tender, no abnormal masses and no hepatosplenomegaly Musculoskeletal: no gait disturbance, no joint inflammation, no deforming arthritis Extremities: no edema and no cyanosis Neuro: grossly normal exam Results & Data Vital Signs (Past 12 Hours) Vital Signs Temp Pulse Pulse Resp BP BP Pulse Ox 11/22/18 07:13 36.4 C L 88 18 167/94 H 97 11/22/18 07:07 89 18 94 11/22/18 04:10 36.7 C 102 H 20 140/89 93 11/22/18 01:45 100 H 11/22/18 01:34 95 H 18 96 11/22/18 00:27 36.5 C 96 H 20 170/98 H 95 Laboratory Results Laboratory Results - last 24 hr 11/22/18 06:20 WBC 16.94 H RBC 4.45 Hgb 13.3 Hct 39.0 MCV 87.6 MCH 29.9 MCHC 34.1 RDW Std Deviation 49.1 H RDW Coeff of Giuliana 15.2 H Plt Count 320 MPV 11.3 H Medications Administered Current Inpatient Medications Acetaminophen (Tylenol) 650 mg PO Q4H PRN PRN Reason: Pain or Fever Stop: 12/19/18 06:52 Last Admin: 11/22/18 02:02 Dose: 650 mg Documented by: Albuterol (Ventolin Hfa) 2 puffs INH BID@0800,2000 [facility] Stop: 12/19/18 07:59 Last Admin: 11/19/18 14:17 Dose: Not Given Documented by: Albuterol (Combivent Respimat) 2 puffs INH QID PRN PRN Reason: Wheezing Stop: 12/19/18 06:52 Amlodipine Besylate (Norvasc) 10 mg PO QAM [facility] Stop: 12/19/18 08:59 Last Admin: 11/22/18 08:07 Dose: Not Given Documented by: Aspirin (Ecotrin) 325 mg PO QAM [facility] Stop: 12/19/18 08:59 Last Admin: 11/22/18 08:06 Dose: Not Given Documented by: Bisacodyl (Dulcolax) 10 mg [place] DAILY PRN PRN Reason: Constipation Stop: 12/19/18 06:52 Clotrimazole (Mycelex) 10 mg [place] [id number] [facility] Stop: 12/22/18 10:59 Furosemide (Lasix) 20 mg PO QAM [facility] Stop: 12/20/18 08:59 Last Admin: 11/22/18 08:06 Dose: 20 mg Documented by: Guaifenesin (Robitussin Sugar Free) 200 mg PO Q4H PRN PRN Reason: Cough Stop: 12/19/18 06:52 Heparin Sodium (Porcine) (Heparin Sodium (Porcine)) 5,000 units SQ Q8 [facility] Stop: 12/19/18 07:14 Last Admin: 11/22/18 05:52 Dose: Not Given Documented by: Ipratropium [place] (Atrovent 0.02% 0.5mg/2.5ml) 0.5 mg INH Q6R [facility] Stop: 12/19/18 07:59 Last Admin: 11/22/18 07:07 Dose: 0.5 mg Documented by: Levalbuterol HCl (Xopenex 1.25mg/0.5ml Neb) 1.25 mg INH Q6R [facility] Stop: 12/19/18 07:59 Last Admin: 11/22/18 07:07 Dose: 1.25 mg Documented by: Levofloxacin (Levaquin) 500 mg PO DAILY@1100 [facility] Stop: 11/26/18 10:59 Last Admin: 11/21/18 11:06 Dose: 500 mg Documented by: Levothyroxine Sodium (Synthroid) 50 mcg PO DAILYBB [facility] Stop: 12/19/18 07:14 Last Admin: 11/22/18 05:51 Dose: 50 mcg Documented by: Magnesium Hydroxide (Milk Of Magnesia) 30 ml PO DAILY PRN PRN Reason: Constipation Stop: 12/19/18 06:52 Last Admin: 11/20/18 15:45 Dose: 30 ml Documented by: Miscellaneous (Order Awaiting Action) 1 ea N/A QS [facility] Stop: 12/19/18 07:59 Last Admin: 11/22/18 07:08 Dose: Not Given Documented by: Nitroglycerin (Nitrostat) 0.4 mg SL UD PRN PRN Reason: Chest Pain Stop: 12/19/18 06:52 Ondansetron HCl (Zofran) 4 mg IV Q6H PRN PRN Reason: Nausea Stop: 12/19/18 06:52 Ondansetron HCl (Zofran) 4 mg PO Q6 PRN PRN Reason: Nausea Stop: 12/19/18 06:52 Potassium Chloride (Klor-Con M20) 20 meq PO QAM [facility] Stop: 12/21/18 08:59 Last Admin: 11/22/18 08:06 Dose: 20 meq Documented by: Prednisone (Prednisone) 40 mg PO DAILY [facility] Stop: 12/22/18 08:59 Last Admin: 11/22/18 08:07 Dose: 40 mg Documented by: Fluticasone/Salmeterol (Advair Diskus 500/50) 1 puffs INH BID [facility] Stop: 12/19/18 08:59 Last Admin: 11/22/18 08:06 Dose: 1 puffs Documented by: Sodium Biphosphate/Sodium Phosphate (Fleet Enema) 132 ml [place] DAILY PRN PRN Reason: Constipation Stop: 12/19/18 07:04 Sodium Chloride ([place] Nasal) 1 sprays NA PRN PRN PRN Reason: Dryness Stop: 12/20/18 17:15 Vitamin B Complex (Vitamin B Complex) [facility] [place] Stop: 12/19/18 08:59 Last Admin: 11/22/18 08:07 Dose: 1 tab Documented by: Vitamin D (Vitamin D3) 1,000 units PO [facility] [place] Stop: 12/19/18 08:59 Last Admin: 11/22/18 08:07 Dose: 1,000 units Documented by:
[2018-11-22] MEDS ORDERED: predniSONE 20 MG TAB PO SCH (09:00)
[2018-11-22] MEDS: levoFLOXacin 500 MG TAB PO SCH (10:04)
[2018-11-22] MEDS: CLOTRIMAZOLE 10 MG TROCHE BUCCAL SCH ×2 (10:04→15:19)
--- NOTE | 2018-11-22 11:24 | Hospitalist Progress Note ---
Date of Service November 22, 2018 Assessment & Plan (1) Acute and chronic respiratory failure: Home oxygen: 3 - 4 L ; Here - 3 L at rest, 5 L on exertion Hx of smoking 20 years with advanced Emphysema, Chronic interstitial changes, PHT. -Recent echo in September showed normal EF with grade 2 diastolic dysfunction. -CXR on admission-Advanced emphysema with chronic interstitial coarsening and pulmonary arterial hypertension.2. 1.2 cm nodule of the basal right lower lobe redemonstrated. 3. Progressed interstitial opacities throughout the left lung. Asymmetric pulmonary edema versus infectious or inflammatory pneumonitis are differential considerations. Possible COPD exacerbation No prior diagnosis but CXR shows advanced emphysema with chronic interstitial coarsening -S/P IV steroids with taper---> discontinue and changed to PO prednisone 40 mg daily on 11/21-tapering course -Leucocytosis secondary to steroids- monitor trend -Nebs QID -Levofloxacin short course- Day 11/01 Diastolic CHF, acute on chronic exacerbation- Resolved -Mild fluid overload on admission. Now resolved. Refusing any additional medications and medical advice. -Lasix IV was changed to PO lasix 20 mg daily as at home -Hesitant to take lasix here. But now okay after discussion. Hypokalemia Resolved Pulmonary nodules 1.2 Cm- basal right lower lobe. Follow up outpatient Hypertension -continue on amlodipine. Does have lower extremity edema. Verapamil considered by cardiology for hypertension and diastolic dysfunction , but patient is refusing to make any changes. Hypothyroidism -on Synthroid. Medical non compliance Patient is non compliant. States that she does not believe in medications and can heal herself. Challenging as does not follow advice and recommendations. On and off refuses medications Deep venous thrombosis prophylaxis. Heparin subQ. Patient also reporting she is [employer] and would not want blood transfusions. Code Status as allows for chest compressions and defibrillation but NO INTUBATION Disposition Ok to discharge to [facility] today Cleared for discharge by cardiology Subjective Patient does have SOB , cough at baseline. No chest pain, palpitations, nausea, vomiting, fever, chills. On 3 L oxygen at rest, 5 on ambulation Continues to refuse her medications on and off c/o thrush and wants baking soda Physical Exam Physical Exam: General: no acute distress and stated age HEENT: Thrush + Chest: normal shape and normal respiratory effort Lungs: bilaterally decreased breath sounds Cardiac Exam: - regular rate & rhythm, no murmurs gallops or rubs - normal S1, normal S2 Extremities: Edema + Results & Data Vital Signs (Past 12 Hours) Vital Signs Temp Pulse Pulse Resp BP BP Pulse Ox 11/22/18 08:00 89 11/22/18 07:13 36.4 C L 88 18 167/94 H 97 11/22/18 07:07 89 18 94 11/22/18 04:10 36.7 C 102 H 20 140/89 93 11/22/18 01:45 100 H 11/22/18 01:34 95 H 18 96 11/22/18 00:27 36.5 C 96 H 20 170/98 H 95
--- NOTE | 2018-11-22 11:44 | Discharge Summary ---
Date of Service November 22, 2018 Admission HPI Per Admitting Provider HISTORY OF PRESENT ILLNESS: This is a 73-year-old female with past medical history significant for chronic COPD, restrictive lung disease, pulmonary nodules, chronic respiratory failure on oxygen 3 liters, history of lower extremity venous stasis dermatitis, osteoarthritis, low back pain with sciatica and the patient is a Bahai, ambulatory dysfunction, hypertension, hyperlipidemia, currently she is in [facility], presents with shortness of breath. She was here on 10/06/2018 with some shortness of breath and found to be from COPD and CHF, seen by cardiology, prescribed verapamil, but she refused to take new medications, seemed improved and she was discharged back to [facility]. The patient says she was not totally fully recovered since then, she feels short of breath, but lately in the last 3 or 4 days, it got worse and also lower extremities legs are getting more swollen. In her alf, they gave some Lasix, but it did not help her that much, walking a few steps making her short of breath. She does not have any cough. She thinks when she had a fever.Because of the ongoing shortness of breath, she was brought to the hospital. She is requiring initially 10 liters, currently 6 liters. Chest x-ray showed possible CHF and also lower extremity swollen. Denies any chest pain, no nausea, no abdominal pain, no headache, no blurred vision, no runny nose, no sore throat. She is having normal bowel movements, normal bladder movements. Her appetite is very poor, not eating much. Principal Diagnosis 1. Acute on chronic hypoxic respiratory failure 2. Acute on chronic diastolic congestive heart failure 3. Acute on chronic COPD exacerbation 4. Hypokalemia Secondary diagnosis on discharge 1. HTN 2. Hypothyroidism 3. Medication non compliance Discharge Data Allergies Allergy/AdvReac Type Severity Reaction Status Date / Time No Known Allergies Allergy Verified 11/19/18 02:47 Consultations 11/19/18 03:37 ED Decision to Admit Stat 11/19/18 06:53 Consult Cardiology Routine Consult Case Management - Discharge Planning Routine Hospital Course (1) Acute and chronic respiratory failure: Home oxygen: 3 - 4 L ; Here - 3 L at rest, 5 L on exertion Hx of smoking 20 years with advanced Emphysema, Chronic interstitial changes, PHT. -Recent echo in September showed normal EF with grade 2 diastolic dysfunction. -CXR on admission-Advanced emphysema with chronic interstitial coarsening and pulmonary arterial hypertension.2. 1.2 cm nodule of the basal right lower lobe redemonstrated. 3. Progressed interstitial opacities throughout the left lung. Asymmetric pulmonary edema versus infectious or inflammatory pneumonitis are differential considerations. Possible COPD exacerbation No prior diagnosis but CXR shows advanced emphysema with chronic interstitial coarsening -S/P IV steroids with taper---> discontinue and changed to PO prednisone 40 mg daily on 11/21-tapering course -Leucocytosis secondary to steroids- monitor trend -Nebs QID -Levofloxacin short course- Day 11/01 Diastolic CHF, acute on chronic exacerbation- Resolved -Mild fluid overload on admission. Now resolved. Refusing any additional medications and medical advice. -Lasix IV was changed to PO lasix 20 mg daily as at home -Hesitant to take lasix here. But now okay after discussion. Hypokalemia Resolved Pulmonary nodules 1.2 Cm- basal right lower lobe. Follow up outpatient Hypertension -continue on amlodipine. Does have lower extremity edema. Verapamil considered by cardiology for hypertension and diastolic dysfunction , but patient is refusing to make any changes. Hypothyroidism -on Synthroid. Medical non compliance Patient is non compliant. States that she does not believe in medications and can heal herself. Challenging as does not follow advice and recommendations. On and off refuses medications Deep venous thrombosis prophylaxis. Heparin subQ. 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 Code Status as allows for chest compressions and defibrillation but NO INTUBATION Disposition Ok to discharge to [facility] today Cleared for discharge by cardiology Total Time Total Time Spent Total Time Spent (In Minutes): 40 minutes Discharge Plan Discharge Items Patient Disposition: Transfer [facility] Fac Reason For Visit: SHORTNESS OF BREATH Discharge Diagnosis: 1. Acute on chronic hypoxic respiratory failure 2. Acute on chronic COPD exacerbation 3. Acute on chronic diastolic CHF exacerbation 4. Hypokalemia Discharge Goals: Decrease discomfort and Improve disease control Activity: Resume your previous activity Non-emergency contact: Primary Care Provider Call non-emergency contact if: your symptoms worsen Follow-up/Referrals: Levar Lopez [Primary Care Provider] - Diet: Heart Healthy and Low Sodium (2gm) Fluids: 1800ml (7 cups) Addtl Provider Instructions: MEDICATION CHANGES: 1. Prednisone 40 mg daily x 2 days, 30 mg daily x 3 days, 20 mg daily x 3 days , 10 mg daily x 3 days and than discontinue 2. Lasix 20 mg daily 3. Levofloxacin 500 mg x 1 day OXYGEN 3 L at rest, 5 L on exertion. Try to wean as tolerated Prescriptions: New clotrimazole 10 mg Marcio 10 mg buccal 5XDQ4H 14 Days Qty: 14 RF: 0 prednisone 10 mg tablet 40 mg PO DAILY 15 Days Qty: 35 RF: 0 Continued ondansetron HCl [Zofran] 4 mg Tablet 4 mg PO Q6 PRN (Reason: Nausea) RF: 0 aspirin 325 mg Tablet,Delayed Release (Dr/Ec) 325 mg PO QAM RF: 0 amlodipine [Norvasc] 10 mg Tablet 10 mg PO QAM RF: 0 levothyroxine 50 mcg Tablet 50 mcg PO DAILYBB RF: 0 fluticasone propion-salmeterol [Advair Diskus] 500-50 mcg/dose Blister With Device 1 inh INHALATION BID RF: 0 furosemide [Lasix] 20 mg Tablet 20 mg PO QAM RF: 0 cholecalciferol (vitamin D3) [Vitamin D3] 1,000 unit Capsule 1,000 unit PO QAM RF: 0 potassium gluconate 595 mg (99 mg) Tablet 595 mg PO QAM RF: 0 Vinegar, Apple Cider 1 tbsp PO QID PRN (Reason: Diarrhea) RF: 0 levofloxacin [Levaquin] 500 mg Tablet 500 mg PO QAM 1 Days Qty: 1 RF: 0 acetaminophen [Tylenol] 325 mg Tablet 650 mg PO Q4H MDD 3000 MG/24 HOURS PRN (Reason: Fever Or Pain) RF: 0 guaifenesin [Siltussin SA] 100 mg/5 mL Liquid 10 ml PO Q4H PRN (Reason: Cough) RF: 0 magnesium hydroxide [Milk of Magnesia] 400 mg/5 mL Suspension 30 ml PO DAILY PRN (Reason: Constipation) RF: 0 albuterol sulfate [Ventolin HFA] 90 mcg/actuation Hfa Aerosol Inhaler 2 puff INHALATION DIRECTED RF: 0 vitamin B complex Capsule 1 cap PO QAM RF: 0 Icy Hot(lidocaine HCl-menthol) 4-1 % Cream 1 applic TOPICAL Q8H RF: 0 bisacodyl [Dulcolax (bisacodyl)] 10 mg Suppository 10 mg NE DIRECTED PRN (Reason: Constipation) RF: 0 Fleet Enema 19-7 gram/118 mL Enema 197 ml NE DIRECTED PRN (Reason: Constipation) RF: 0 albuterol sulfate [Ventolin HFA] 90 mcg/actuation Hfa Aerosol Inhaler 2 puff INHALATION Q3H PRN (Reason: Shortness Of Breath) RF: 0 Combivent Respimat 20-100 mcg/actuation Mist 2 puff INHALATION QID PRN (Reason: Wheezing) RF: 0 Stand-Alone Forms: [facility] Discharge Orders: Discharge Order (Routine); Ordered 11/22/18 Ordered By: Lo Spann Skilled Items Patient informed of condition?: Yes DNR: No Discharge Level of Care: Skilled Communicable Disease: No Discharge Prognosis: Stable Admission Data Admit Date/Time: 11/19/18 05:33 Attending Provider: Lo Spann Admit Provider: Solitario Kwon Primary Care Provider: Levar Lopez Other Providers: Solitario Kwon ; Devon Garcia ; Adriel Gutierrez ; Hank Hanley ; Yusuf Castanon ; BobyJonh martinez ; Jr Isaacs ; Kelly Amaral ; Alda Ibarra ; Balaji Hall Service: Telemetry
== END 2018-11-22 17:05 | DRG 291 ==
LOC: ED 02:08 → SUATTDRO 05:33 → 2E 05:33

== ENCOUNTER 2018-12-01 23:08 | Inpatient (IN) ==
[2018-12-01] MEDS ORDERED: FUROSEMIDE 40 MG/4 ML VIAL IV STA (23:31)
[2018-12-01 23:44] LABS: Basophils # (auto) 0.06 K/uL (0-0.2); Basophils % (auto) 0.4 %; Eosinophils % (auto) 1.8 %; Hematocrit (blood only) 43.9 % (37-47); Hemoglobin 15.2 g/dL (12.0-16.0); Immature Granulocytes # (auto) 0.22 K/uL (0.00-0.02); Immature Granulocytes % (auto) 1.3 %; Lymphocytes # (auto) 1.63 K/uL (1.2-3.4); Lymphocytes % (auto) 9.9 %; Mean Corpuscular Hgb Conc 34.6 g/dL (32-36); Mean Corpuscular Volume 85.6 fL (80-100); Mean Platelet Volume 11.6 fL (7.4-10.4); Monocytes # (auto) 1.44 K/uL (0.11-0.59); Monocytes % (auto) 8.8 %; Neutrophils # (auto) 12.76 K/uL (1.4-6.5); Neutrophils % (auto) 77.8 %; Platelet Count 239 K/uL (130-400); RDW Coefficient of Variation 15.5 % (11.5-14.5); RDW Standard Deviation 48.3 fL (36.4-46.3); Red Blood Count 5.13 M/uL (4.2-5.4); White Blood Count 16.41 K/uL (4.8-10.8)
[2018-12-01 23:54] LABS: INR 1.1 (0.9-1.1); Prothrombin Time 10.9 Seconds (9.0-12.0)
[2018-12-02 00:02] LABS: Base Excess VBG 1.4 mEq/L; Oxygen Saturation VBG 67.5 %; pH VBG 7.49 (7.36-7.41)
[2018-12-02 00:02] LABS: BUN Creatinine Ratio 21.7 (10-20); Blood Urea Nitrogen 17 mg/dl (7-18); Carbon Dioxide 24 mmol/L (21-32); Chloride 104 mmol/L (98-107); Creatinine Clr Calc Pharmacy 62.2 ml/min; Est GFR (African American) 88.8; Est GFR (Non-African American) 76.6; Glucose 94 mg/dl (70-99); Magnesium 1.9 mg/dl (1.8-2.4); Potassium 3.9 mmol/L (3.5-5.1); Sodium 137 mmol/L (136-145)
[2018-12-02 00:07] LABS: NT Pro B Type Natriuretic Pept 531 pg/ml (0-900); Troponin I < 0.015 ng/ml (0-0.045)
[2018-12-02] MEDS ORDERED: FUROSEMIDE 20 MG in SYRINGE 0 ML IV STA (01:42)
--- NOTE | 2018-12-02 02:26 | Emergency Department Note ---
Entered by Mary Sabillon acting as a scribe for Vikas Warner MD ED Provider Note Name: Xiomara Soria Age: 73 Arrives Via: Ambulance Informant: Self CC: SOB HPI: A female arrives for evaluation after complaining of SOB that began a few days ago. 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 She notes that this is similar to previous episodes. The patient complains of lower extremity swelling and a headache that began this afternoon. She denies any fever, new cough, and recent fall. The patient notes that she has not been taking her Lasix for the past few days. She reports that she finished a dose of Levaquin yesterday. The patient states that she has been to [facility] in the past for rehabilitation. The patient says that she usually wears 3-4 liters of oxygen NC at baseline. She reports that she lives at home with her son. 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 ROS: See above HPI for pertinent positives & negatives. A total of 10 systems reviewed and were otherwise negative. Past Medical History: chronic bronchitis, hypertension Past Surgical History: tubal ligation Family History: Family history is non-contributory. Social History: The patient lives at home with her son. Home Medications: See below. Allergies NKA Physical: Vitals: BP: 171/107, P: 120, R: 22, T: 97.5, O2 Sat: 86, Delivery: Nasal Cannula, FR: 4 L/min Exam: GENERAL: Patient is chronically unwell appearing and in minimal acute distress. EYES: No scleral icterus, unremarkable pupils. ENT: Mucous membranes moist, no nasal congestion. NECK: No masses appreciated, no meningismus, trachea is midline. RESPIRATORY: Mildly dyspneic with diffusely wet lung sounds. No wheeze, no rhonchi. CARDIOVASCULAR: Tachycardic rate and regular rhythm. No murmurs, rubs, gallops appreciated. GASTROINTESTINAL: Abdomen soft, non-tender, no peritonitis. Bowel sounds positive. No masses appreciated. BACK: No midline tenderness, no CVA tenderness EXTREMITIES: Normal motion all extremities, no cyanosis. 4+ pitting edema in the bilateral lower legs. NEUROLOGIC: Alert and oriented, no acute motor or sensory deficits, no focal weakness, cranial nerves grossly intact. SKIN: No rash, no jaundice, no diaphoresis. ED Course: Prior Medical Record, Triage/Nursing Notes, Medications, Allergies reviewed by Me Vital Signs: reviewed and remarkable for tachycardia and hypertension. Labs: Reviewed and remarkable for Elevated WBC, baseline BNP Interventions: Saline Lock, Lasix 40mg IV Imaging: X ray results are stated below per my interpretation: Chest: 1 view: Congestive failure EKG: Per My Interpretation: Indication - Shortness of breath: Sinus Tachy 120 bpm without ischemia. PAC noted. QTC 457 Consults: I spoke with Dr. Kwon, [facility] hospitalist, about the patient's case. He will further evaluate the patient. Reassessments/Times: 2316: The patient was evaluated in room B06. A complete history and physical exam was performed. 0002: I reevaluated the patient. 0005: I spoke with [facility] hospitalist, about the patient's case. He will further evaluate the patient. Blood pressure: Elevated - Referred to Hospitalist Disposition: Hospitalization Differentials: Infectious, Reactive Airway Disease, Pneumonia, Pneumothorax, COPD, CHF, ACS, Pulmonary Embolism, MSK, GI, Dissection, amongst other etiologies entertained. Medical Decision Making: Pleasant 73 yr old female in respiratory distress who admits not taking meds last few days. Tachy and hypoxic on arrival. Exam consistent with CHF and CXR same. Given IV lasix. Of note WBC elevated though seems she frequently has elevated WBC. She is afebrile without change in her typical cough. As she just finished round levaquin will hold off on abx though will get blood cultures. She is stable on venturi mask and sating OK with this. She is not on thinners and does have recent hospitalization, though I feel that CHF and possibly some COPD are more likely causes than PE. Reviewed with hospitalist who will manage further. Impression: CHF Hypoxia Vikas Warner MD The scribe's documentation has been prepared under my direction and personally reviewed by me in its entirety. I confirm that the note above accurately reflects all work, treatment, procedures, and medical decision making performed by me. Impression & Plan CHF (congestive heart failure), Hypoxia Past Med/Surg History Medical History Chronic bronchitis (Chronic) Pulmonary nodule, right (Chronic) "last CT in 2010 revealed R lung nodule, recommended FNA or PET, patient refused further work up" HTN (hypertension) (Chronic) Venous stasis dermatitis of left lower extremity (Chronic) Obesity (BMI 35.0-39.9 without comorbidity) (Chronic) Surgical History History of tubal ligation (Resolved) History of colonoscopy (Resolved) History of D&C (Chronic) Family History Other Family history non-contributory Social History Preferred Language: Tajik Communication Ability: Effective Beliefs That Will Affect Care: Congregation Congregation Beliefs: Mormonism Current Living Situation: Half-Way Current Living Situation Comment: at [facility] for rehab Feels Safe at Home: Yes Smoking Status: Unknown if ever smoked Hx Alcohol Use: No Hx Substance Use: No Results & Data Vital Signs Vital Signs - 24 hr 12/01/18 23:15 12/01/18 23:17 12/01/18 23:22 Temperature 36.4 C L Temperature Source Oral Sepsis Recent Fever Within 48 Hours No Sepsis Action Taken by Nursing No Action Required Pulse Rate 130 H 122 H 120 H Pulse Rate [Right] Pulse Rate from SpO2 Sensor Pulse Rhythm Regular Pulse Strength Normal Respiratory Rate 27 H 31 H 22 Respiratory Effort / Characteristics Labored Respiratory Depth Normal Respiratory Pattern Regular Blood Pressure 171/107 H 171/107 H Blood Pressure [Right Arm] Blood Pressure Mean 128 128 Blood Pressure Mean [Right Arm] Blood Pressure Position Lying Pulse Oximetry 84 L 87 L 86 L Oxygen Delivery Method Nasal Cannula Oxygen Flow Rate 4 12/01/18 23:28 12/01/18 23:30 12/02/18 00:00 Temperature Temperature Source Sepsis Recent Fever Within 48 Hours Sepsis Action Taken by Nursing Pulse Rate 121 H Pulse Rate [Right] Pulse Rate from SpO2 Sensor 127 H Pulse Rhythm Pulse Strength Respiratory Rate 25 H Respiratory Effort / Characteristics Respiratory Depth Respiratory Pattern Blood Pressure Blood Pressure [Right Arm] Blood Pressure Mean Blood Pressure Mean [Right Arm] Blood Pressure Position Pulse Oximetry 86 L 93 93 Oxygen Delivery Method Nasal Cannula Oxygen Flow Rate 6 12/02/18 00:27 Temperature Temperature Source Sepsis Recent Fever Within 48 Hours Sepsis Action Taken by Nursing Pulse Rate Pulse Rate [Right] 118 H Pulse Rate from SpO2 Sensor Pulse Rhythm Pulse Strength Respiratory Rate 18 Respiratory Effort / Characteristics Non-Labored Spontaneous Respiratory Depth Normal Respiratory Pattern Blood Pressure Blood Pressure [Right Arm] 152/108 H Blood Pressure Mean Blood Pressure Mean [Right Arm] 122 Blood Pressure Position Pulse Oximetry 95 Oxygen Delivery Method Oxymask Oxygen Flow Rate 10 Home Medications Current Medication List: was personally reviewed by me Laboratory Data Attestation: I reviewed the patient's lab results. Result diagrams: 12/01/18 23:29 12/01/18 23:30 Lab Results 12/01/18 12/01/18 12/01/18 Range/Units 23:29 23:29 23:29 WBC 16.41 H (4.8-10.8) K/uL RBC 5.13 (4.2-5.4) M/uL Hgb 15.2 (12.0-16.0) g/dL Hct 43.9 (37-47) % MCV 85.6 (80-100) fL MCH 29.6 (25-34) pg MCHC 34.6 (32-36) g/dL RDW Std Deviation 48.3 H (36.4-46.3) fL RDW Coeff of Giuliana 15.5 H (11.5-14.5) % Plt Count 239 (130-400) K/uL MPV 11.6 H (7.4-10.4) fL Immature Gran % (Auto) 1.3 % Neut % (Auto) 77.8 % Lymph % (Auto) 9.9 % Rock % (Auto) 8.8 % Eos % (Auto) 1.8 % Baso % (Auto) 0.4 % Immature Gran # (Auto) 0.22 H (0.00-0.02) K/uL Neut # (Auto) 12.76 H (1.4-6.5) K/uL Lymph # (Auto) 1.63 (1.2-3.4) K/uL Rock # (Auto) 1.44 H (0.11-0.59) K/uL Eos # (Auto) 0.30 (0-0.5) K/uL Baso # (Auto) 0.06 (0-0.2) K/uL PT 10.9 (9.0-12.0) Seconds INR 1.1 (0.9-1.1) VBG pH (7.36-7.41) VBG pCO2 (38-50) mmHg VBG pO2 mmHg VBG HCO3 mmol/L VBG O2 Saturation % VBG Base Excess mEq/L Barometric Pressure mm/Hg Sodium (136-145) mmol/L Potassium (3.5-5.1) mmol/L Chloride (98-107) mmol/L Carbon Dioxide (21-32) mmol/L Anion Gap (3-11) BUN (7-18) mg/dl Creatinine (0.6-1.2) mg/dl Est Cr Clr Drug Dosing ml/min Est GFR ( Amer) Est GFR (Non-Af Amer) BUN/Creatinine Ratio (10-20) Glucose (70-99) mg/dl Lactate 1.2 (0.4-2.0) mmol/L Calcium (8.5-10.1) mg/dl Magnesium (1.8-2.4) mg/dl Troponin I (0-0.045) ng/ml NT-Pro-B Natriuret Pep (0-900) pg/ml 12/01/18 12/01/18 Range/Units 23:30 23:51 WBC (4.8-10.8) K/uL RBC (4.2-5.4) M/uL Hgb (12.0-16.0) g/dL Hct (37-47) % MCV (80-100) fL MCH (25-34) pg MCHC (32-36) g/dL RDW Std Deviation (36.4-46.3) fL RDW Coeff of Giuliana (11.5-14.5) % Plt Count (130-400) K/uL MPV (7.4-10.4) fL Immature Gran % (Auto) % Neut % (Auto) % Lymph % (Auto) % Rock % (Auto) % Eos % (Auto) % Baso % (Auto) % Immature Gran # (Auto) (0.00-0.02) K/uL Neut # (Auto) (1.4-6.5) K/uL Lymph # (Auto) (1.2-3.4) K/uL Rock # (Auto) (0.11-0.59) K/uL Eos # (Auto) (0-0.5) K/uL Baso # (Auto) (0-0.2) K/uL PT (9.0-12.0) Seconds INR (0.9-1.1) VBG pH 7.49 H (7.36-7.41) VBG pCO2 32 L (38-50) mmHg VBG pO2 34 mmHg VBG HCO3 24 mmol/L VBG O2 Saturation 67.5 % VBG Base Excess 1.4 mEq/L Barometric Pressure 728.5 mm/Hg Sodium 137 (136-145) mmol/L Potassium 3.9 (3.5-5.1) mmol/L Chloride 104 (98-107) mmol/L Carbon Dioxide 24 (21-32) mmol/L Anion Gap 10.0 (3-11) BUN 17 (7-18) mg/dl Creatinine 0.77 (0.6-1.2) mg/dl Est Cr Clr Drug Dosing 62.2 ml/min Est GFR ( Amer) 88.8 Est GFR (Non-Af Amer) 76.6 BUN/Creatinine Ratio 21.7 H (10-20) Glucose 94 (70-99) mg/dl Lactate (0.4-2.0) mmol/L Calcium 9.0 (8.5-10.1) mg/dl Magnesium 1.9 (1.8-2.4) mg/dl Troponin I < 0.015 (0-0.045) ng/ml NT-Pro-B Natriuret Pep 531 (0-900) pg/ml Administered Medications Discontinued Medications Furosemide (Lasix) 40 mg IV NOW STA Stop: 12/01/18 23:32 Last Admin: 12/01/18 23:39 Dose: 40 mg Documented by: [id number] Blood Pressure Blood Pressure Findings: Elevated blood pressure Blood Pressure Disposition: further management by hospitalist Discharge Plan Visit Data Chief Complaint: Respiratory Problems Stated Complaint: RESPIRATORY PROBLEMS ED Provider: Vikas Warner Discharge Problem: CHF (congestive heart failure), Hypoxia Patient Disposition: Being Evaluated by Hospitalist Discharge Instructions Interventions: ED Discharge Assessment Last Done: 12/02/18 01:58 Forms Stand Alone Forms: [employer] Prescriptions Prescriptions: No Action clotrimazole 10 mg Marcio 10 mg buccal 5XDQ4H 14 Days Qty: 14 RF: 0 fluticasone propion-salmeterol [Advair Diskus] 500-50 mcg/dose Blister With Device 1 inh INHALATION Q12H RF: 0 aspirin 325 mg Tablet,Delayed Release (Dr/Ec) 325 mg PO DAILY RF: 0 levothyroxine 50 mcg Tablet 50 mcg PO DAILY RF: 0 furosemide [Lasix] 20 mg Tablet 20 mg PO DAILY RF: 0 Vitamin D3 1,000 units 1,000 units PO DAILY RF: 0 amlodipine 10 mg 10 mg PO DAILY RF: 0 potassium gluconate 595 mg 595 mg PO DAILY RF: 0 vitamin B complex 1 tab 1 tab PO DAILY RF: 0 albuterol sulfate [Ventolin HFA] 90 mcg/actuation Hfa Aerosol Inhaler 2 puff INHALATION Q3H PRN (Reason: Shortness Of Breath) RF: 0 Combivent Respimat 20-100 mcg/actuation Mist 2 puff INHALATION QID PRN (Reason: Wheezing) RF: 0 Referrals Referrals: Dada Carr MD [Primary Care Provider] - Discharge Problem: CHF (congestive heart failure) Qualifiers: Heart failure type: combined systolic and diastolic Heart failure chronicity: acute on chronic Qualified Code(s): I50.43 - Acute on chronic combined systolic (congestive) and diastolic (congestive) heart failure The scribe's documentation has been prepared under my direction and personally reviewed by me in its entirety. I confirm that the note above accurately reflects all work, treatment, procedures, and medical decision making performed by me.
[2018-12-02] MEDS ORDERED: XOPENEX/ATROVENT 1.25mg/0.5MG NEB COMBO NEB PRN (02:52)
[2018-12-02] MEDS ORDERED: IPRATROPIUM BROMIDE NEB SOLN 0.02% 2.5 ML VIAL INH PRN (02:52)
[2018-12-02] MEDS ORDERED: IPRATROPIUM BROMIDE/ALBUTEROL respimat INH INH PRN (02:52)
[2018-12-02] MEDS ORDERED: LEVALBUTEROL 1.25MG/0.5ML NEB INH PRN (02:52)
[2018-12-02] MEDS ORDERED: METOPROLOL TARTRATE 1 MG/ML VIAL IV PRN (02:52)
[2018-12-02] MEDS ORDERED: ONDANSETRON INJ 2 MG/ML 2 ML VIAL IV PRN (02:52)
[2018-12-02] MEDS ORDERED: NITROGLYCERIN SL 0.4 MG/TAB TAB SL PRN (02:52)
[2018-12-02] MEDS: ACETAMINOPHEN 325 MG TAB PO PRN ×2 (03:17→21:29)
[2018-12-02] MEDS ORDERED: OPTIRAY 320 125ml IV PRN (04:12)
--- NOTE | 2018-12-02 05:30 | History and Physical Report ---
DATE OF ADMISSION: 12/01/2018 CHIEF COMPLAINT: Shortness of breath. HISTORY OF PRESENT ILLNESS: This is a 73-year-old female with past medical history significant for chronic COPD, restrictive lung disease, pulmonary hypertension, chronic respiratory failure, oxygen 3 liters at rest and 5lts on ambulation, atrial fibrillation, history of lower extremity venous system with his osteoarthritis, lower back pain with sciatica, ambulatory dysfunction, hypertension, hyperlipidemia, Anabaptist. The patient was recently admitted a couple of times in the hospital for acute on chronic respiratory acute on chronic diastolic CHF. The patient was noncompliant with her medications. She was just discharged on November 22 to [facility] where she was there for some time. She was discharged on Lasix 20 mg daily. On admission she refused to take Lasix but later she agreed to take. She says last Sunday she went home to live with her son and she says she ran out of her medications last Sunday and she called PCP office for Lasix and levothyroxine and potassium, but those medications were not called back in yet and even while at [facility], she was feeling tightness in the chest, which progressively got worse and she was getting short of breath, so she decided to come to the hospital. Here chest x-ray showed CHF picture. She was given IV Lasix. She says she is feeling slightly better. Denies any fever, chills. No cough, no headache, no dizziness. Appetite is not great. No nausea, no abdominal pain. Normal bowel and bladder movements, somewhat constipated. Takes stool softeners. No burning micturition .She says she has tried to cut back on salt but her son is cooking and still working on it. She is able to ambulate to her kitchen and come back when she was discharged to home, but today she could not walk because of shortness of breath and so she came to the ER. She has been feeling hot and thought to have high blood pressure. ALLERGIES: No known drug allergies. PAST MEDICAL HISTORY: As mentioned above. PAST SURGICAL HISTORY: Colonoscopy, D and C and history of tubal ligations. FAMILY HISTORY: Significant for lung disease and black lung. SOCIAL HISTORY: The patient is a Anabaptist. Former smoker, quit in 1969, smoked [id number] smoking history. No alcohol abuse. No drug abuse. , recently was in [facility], currently living with her son. REVIEW OF SYSTEMS: As per HPI. Rest of review of systems negative. MEDICATIONS: The patient was discharged on prednisone taper 15 days, Zofran 4 mg p.o. q. 6 hours p.r.n., aspirin 325 mg p.o. daily, amlodipine 10 mg p.o. daily, levothyroxine 50 mcg p.o. daily, Advair Diskus 500/50 one inhalation b.i.d., Lasix 20 mg a.m., vitamin D 1000 units p.o. daily, potassium gluconate 595 mg p.o. a.m., Tylenol 650 mg p.o. q. 4 hours p.r.n., milk of magnesia 30 mL p.o. daily p.r.n., albuterol 2 puffs inhalation as directed, vitamin B complex daily a.m., Dulcolax 10 mg per rectal p.r.n., albuterol, Combivent 2 puffs inhalation q.i.d. p.r.n. PHYSICAL EXAMINATION: GENERAL: The patient is moderate built, currently not in acute distress. VITAL SIGNS: Temperature 36.4, pulse 118, respiratory rate 18, blood pressure 152/108, oxygen 95% on 2 liters OxyMask. HEENT: No pallor, no icterus. Pupils equal, round, reactive to light. NECK: No JVD, no neck masses, no carotid bruits. CARDIOVASCULAR: S1, S2 heard, regular rate and rhythm, no murmur, no gallop. RESPIRATORY SYSTEM: Normal AP diameter. No accessory muscle use. Bilateral mild crackles heard. No wheezing. ABDOMEN: Soft, bowel sounds present. Nontender. Nondistended. CENTRAL NERVOUS SYSTEM: Cranial nerves II through XII grossly intact, nonfocal. EXTREMITIES: Bilateral lower extremity, gross edema present. LABORATORY DATA: WBC 16, hemoglobin 15.2, hematocrit 43.9, platelets 239. PT 10.9, INR 1.1. Sodium 137, potassium 3.9, chloride 104, bicarbonate 24, BUN 17, creatinine 0.7, serum glucose 94. Lactate 1.2, calcium 9, magnesium 1.9, troponin I less than 0.015. BNP 531. Chest x-ray shows bilateral congestion. ASSESSMENT AND PLAN: This is a 73-year-old female who presents with acute on chronic diastolic congestive heart failure. 1. Acute on chronic diastolic congestive heart failure: Noncompliant with medications. 2. Acute on chronic respiratory failure from diastolic congestive heart failure. The patient on home oxygen 3-4 liters.5lts on exertion. Received IV Lasix 40 in the ER, will give another 20mg.. Will place on IV 40 b.i.d. Monitor on tele floor . Daily weights and i/o's. Consult cardiology for optimizing medications. Says will; be complaint with meds now. 3. History of chronic obstructive pulmonary disease, history of chronic interstitial lung disease, pulmonary hypertension, leukocytosis mostly from recent use of steroids. Continue her home inhalers and monitor. 4. pulmonary nodules 1.2 cm right lower lobe, needs followup. 5. Hypertension, on amlodipine and diuretics. The patient is noncompliant. Her blood pressure is high, we will place on IV Lopressor p.r.n. 6. Hypothyroidism, on Synthroid. 7. Tachycardia and lower ext edema. Will get CTA chest to rule out PE and Lower extremity Doppler. 8. Deep venous thrombosis prophylaxis. We will place her on heparin subQ. 9. Disposition: Close monitoring the tele floor. The patient is Anabaptist. No blood transfusions. The patient wants to be a full code if there is a chance of recovery and only for a short period of time. PT and OT. Monitor in tele . Social service to help with discharge planning. MELITA
[2018-12-02] MEDS: CLOTRIMAZOLE 10 MG TROCHE BUCCAL SCH ×5 (05:49→23:37)
[2018-12-02] MEDS: LEVOTHYROXINE SODIUM 50 MCG TABLET PO SCH (05:49)
--- NOTE | 2018-12-02 06:24 | Ultrasound Report ---
US venous doppler LE BI HISTORY: Pain. Edema. dvt? COMPARISON STUDY: None. FINDINGS: Thrombus is noted within the left posterior tibial vein. Compressibility is incomplete. There is superficial thrombophlebitis in the greater saphenous veins bilaterally. IMPRESSION: 1. Superficial thrombophlebitis involving the greater saphenous veins bilaterally. 2. Focal acute deep venous thrombosis left posterior tibial vein. The above report was generated using voice recognition software. It may contain grammatical, syntax or spelling errors. Electronically signed by: Jr Heredia M.D. 12/02/2018 6:23 AM
--- NOTE | 2018-12-02 06:28 | XRay Report ---
XR chest 1V portable CLINICAL HISTORY: Shortness of breath COMPARISON STUDY: 11/19/2018 FINDINGS: The heart is normal in size. There is stable interstitial thickening. There is enlargement of the pulmonary arteries suggesting underlying pulmonary arterial hypertension. There is no acute lo bar consolidation. There are no significant pleural effusions.[ IMPRESSION: Pulmonary emphysema with chronic interstitial thickening and suspected pulmonary arterial hypertension. Electronically signed by: Edson Bui M.D. 12/02/2018 6:27 AM
[2018-12-02 06:42] LABS: Basophils # (auto) 0.04 K/uL (0-0.2); Basophils % (auto) 0.3 %; Eosinophils # (auto) 0.27 K/uL (0-0.5); Hematocrit (blood only) 38.3 % (37-47); Hemoglobin 13.1 g/dL (12.0-16.0); Immature Granulocytes % (auto) 1.5 %; Lymphocytes # (auto) 1.85 K/uL (1.2-3.4); Lymphocytes % (auto) 13.5 %; Mean Corpuscular Hgb Conc 34.2 g/dL (32-36); Mean Corpuscular Volume 85.3 fL (80-100); Mean Platelet Volume 11.2 fL (7.4-10.4); Monocytes # (auto) 1.76 K/uL (0.11-0.59); Monocytes % (auto) 12.9 %; Neutrophils # (auto) 9.54 K/uL (1.4-6.5); Neutrophils % (auto) 69.8 %; Platelet Count 224 K/uL (130-400); RDW Coefficient of Variation 15.5 % (11.5-14.5); RDW Standard Deviation 48.5 fL (36.4-46.3); Red Blood Count 4.49 M/uL (4.2-5.4); White Blood Count 13.66 K/uL (4.8-10.8)
--- NOTE | 2018-12-02 06:58 | CT Scan Report ---
CT ANGIOGRAPHY OF THE CHEST, PULMONARY EMBOLUS PROTOCOL CLINICAL HISTORY: Shortness of breath. Chest pain. COMPARISON STUDY: Chest CT March 14, 2018. Chest radiograph December 01, 2018. TECHNIQUE: Following IV administration of 118 mL of Optiray-320, helical axial images of the chest we re obtained utilizing the pulmonary embolus protocol. Maximal intensity projections and sagittal and coronal reformats were viewed on an independent 3D workstation. IV contrast was administered withou t complication. Automated exposure control was utilized for the study. A dose lowering technique wa s utilized adhering to the principles of ALARA. CT DOSE: 616.36 mGy.cm FINDINGS: No pulmonary emboli are identified. There is mild dilatation of the central pulmonary billie ezio. The heart is mildly enlarged. There is no pericardial effusion. There is moderate coronary billie ry calcification. No enlarged thoracic lymph nodes are noted. Moderate emphysema is noted. There is m ild interlobular septal thickening. Minimal airspace opacity within left upper lobe is noted. A lobul ated right lower lobe nodule has slightly increased in size since CT of March 14, 2018. This nodule measures 1.7 x 1.2 cm. Appearance and measures 1.6 x 1 cm. There is no pneumothorax or pleural effusi on. T12 and L1 compression fractures are likely subacute. There are healing left rib fractures. Galls tones are noted. IMPRESSION: 1. No pulmonary emboli identified. 2. Slight increase in size of a 1.7 x 1.2 cm right lower lobe lobulated pulmonary nodule since CT of March 14, 2018. This is indeterminate and a neoplasm cannot be excluded. Pulmonary consultation is r ecommended. 3. Moderate emphysema. Minimal left upper lobe airspace opacity. 4. T12 and L1 compression fractures which are likely subacute. Electronically signed by: Teto Peng M.D. 12/02/2018 6:56 AM
[2018-12-02 07:35] LABS: BUN Creatinine Ratio 19.7 (10-20); Calcium 8.5 mg/dl (8.5-10.1); Creatinine Clr Calc Pharmacy 63.2 ml/min; Est GFR (African American) 91.7; Est GFR (Non-African American) 79.1; Potassium 3.4 mmol/L (3.5-5.1)
[2018-12-02] MEDS: FUROSEMIDE 40 MG in SYRINGE 0 ML IV SCH ×2 (08:18→17:14)
[2018-12-02] MEDS: VITAMIN B COMPLEX TAB PO SCH (08:18)
[2018-12-02] MEDS: CHOLECALCIFEROL 1,000 UNITS TAB PO SCH (08:18)
[2018-12-02] MEDS: FLUTICASONE/SALMETEROL (ADVAIR) 500/50 INH 14 PUFF INH SCH ×2 (08:53→21:29)
[2018-12-02] MEDS ORDERED: ASPIRIN 325 MG ECTAB PO SCH (09:00)
[2018-12-02] MEDS ORDERED: AMLODIPINE BESYLATE 5 MG TAB PO SCH (09:00)
[2018-12-02] MEDS ORDERED: HEPARIN SOD 5,000 UNIT/0.5 ML VIAL SQ SCH (09:00)
--- NOTE | 2018-12-02 09:06 | Cardiology Consultation ---
Date of Consultation December 02, 2018 Assessment & Plan (1) Acute and chronic respiratory failure: Patient admitted with acute on chronic respiratory failure which is multifactorial including noncompliance with medications, mild volume overload, possible exacerbation of COPD with underlying interstitial lung disease. Consider pulmonary consultation. Continue IV diuretics for an additional 24 hours with transition to oral. (2) DVT (deep venous thrombosis): Left posterior tibial deep venous thrombosis noted. Recommend IV heparin. Discussed with patient. She is hesitant, however, agreeable to medication at this time. She is unsure whether she would agree to oral anticoagulation in the outpatient setting. (3) Acute on chronic diastolic (congestive) heart failure: Volume status markedly improved with IV diuretic therapy. Continue IV diuretic therapy at this time. Monitor fluid balance, daily weight, electrolytes, and GFR. Discontinue amlodipine in favor of verapamil to improve heart rate control in the setting of chronic hypoxia. Patient is not a good candidate for beta-eze therapy due to underlying pulmonary disease. (4) Medical non-compliance: History of Present Illness Reason for Consultation: Shortness of breath, diastolic heart failure, chest discomfort Requesting Physician: Dr. Kwon Attending Physician: Diana Beverly MD History of Present Illness 73-year-old female admitted through the emergency department with progressive shortness of breath as well as epigastric and lower chest pressure. Patient reports discomfort occurring more than 1 week ago while [facility]. She became progressively short of breath over the weekend. Admits to running out of medications last . She has not taken Lasix since as well. She is resistant to new medications. Prescribed amlodipine, however, admits to not using this medication since discharge from the [facility]. Prefers to utilize "natural remedies". Patient treated with intravenous Lasix in the emergency department. CTA of the chest negative for pulmonary embolus, pneumonia, or evidence of pulmonary edema. Left lower extremity below the knee DVT noted on duplex. Patient currently feeling short of breath. Wearing a Ventimask at 6 L. Oxygen saturation 93%. Heart rate ranging from 90 to 110 bpm on telemetry. Patient evaluated by cardiology during 2 recent hospitalization over the past 6 months. Verapamil recommended however patient declined additional therapies at that time. Pulmonary consultation also recommended however, was not pursued. Allergies Allergy/AdvReac Type Severity Reaction Status Date / Time No Known Allergies Allergy Verified 12/02/18 00:15 Home Medications Home Medications Medication Instructions Recorded Confirmed Type Combivent Respimat 2 puff INHALATION QID PRN 10/06/18 12/02/18 History albuterol sulfate [Ventolin HFA] 2 puff INHALATION Q3H PRN 10/06/18 12/02/18 History clotrimazole 10 mg BUCCAL 5XDQ4H 14 Days #14 tab 11/22/18 12/02/18 Rx Vitamin D3 1,000 units PO DAILY 12/02/18 12/02/18 History amlodipine 10 mg PO DAILY 12/02/18 12/02/18 History aspirin 325 mg PO DAILY 12/02/18 12/02/18 History fluticasone propion-salmeterol 1 inh INHALATION Q12H 12/02/18 12/02/18 History [Advair Diskus] furosemide [Lasix] 20 mg PO DAILY 12/02/18 12/02/18 History levothyroxine 50 mcg PO DAILY 12/02/18 12/02/18 History potassium gluconate 595 mg PO DAILY 12/02/18 12/02/18 History vitamin B complex 1 tab PO DAILY 12/02/18 12/02/18 History Patient History Medical History Chronic bronchitis (Chronic) Pulmonary nodule, right (Chronic) "last CT in 2010 revealed R lung nodule, recommended FNA or PET, patient refused further work up" HTN (hypertension) (Chronic) Venous stasis dermatitis of left lower extremity (Chronic) Obesity (BMI 35.0-39.9 without comorbidity) (Chronic) Surgical History History of tubal ligation (Resolved) History of colonoscopy (Resolved) History of D&C (Chronic) Family History Other Family history non-contributory Social History Preferred Language: Icelandic Communication Ability: Effective Social Contact Worker Required: No Beliefs That Will Affect Care: None marital status: Current Living Situation: Family Current Living Situation Comment: at [facility] for rehab Other Information That Helps Us Care for You: No Feels Safe at Home: Yes Safety Concerns: Feels Safe At This Time Smoking Status: Never smoker Do You Dip or Chew Tobacco: No Second Hand Exposure: No Tobacco Cessation Education Requested by Patient: No Hx Alcohol Use: No Hx Substance Use: No Review of Systems Review of Systems: All systems reviewed & are unremarkable except as noted in HPI & below Physical Exam Physical Exam: General: NAD, AAO x3, well nourished. Chronically ill. HEENT: Normocephalic. Atraumatic. Conjunctiva pink, no scleral icterus. Neck: No carotid bruits, the carotid upstrokes are brisk. No JVD. No HJR Heart: Regular, borderline tachycardic, normal S-1 and S-2 no S-3 or S-4 gallop. No murmurs or rub appreciated. PMI is not displaced. No RV heave. Lungs: Diminished breath sounds bilateral. No rhonchi or wheeze. There are scant crackles at the right base. Abdomen: Normal bowel sounds. Soft. Nontender. No masses or organomegaly. No abdominal bruits. Extremities: 1+ mild, pedal, ankle, and pretibial edema bilaterally. No clubbing or cyanosis. Pulses: radial=2/4, Dorsalis pedis =2/4, posterior tibial=2/4. Neuro: Cranial nerves grossly intact. No focal motor deficit. Results & Data Vital Signs (Past 12 Hours) Vital Signs Temp Pulse Pulse Pulse Resp BP BP 12/02/18 07:43 36.7 C 85 28 H 116/67 12/02/18 02:20 37 C 113 H 20 144/82 H 12/02/18 00:27 118 H 18 152/108 H 12/02/18 00:00 12/01/18 23:30 121 H 25 H 12/01/18 23:28 12/01/18 23:22 36.4 C L 120 H 22 171/107 H 12/01/18 23:17 122 H 31 H 12/01/18 23:15 130 H 27 H 171/107 H Pulse Ox 12/02/18 07:43 90 12/02/18 02:20 94 12/02/18 00:27 95 12/02/18 00:00 93 12/01/18 23:30 93 12/01/18 23:28 86 L 12/01/18 23:22 86 L 12/01/18 23:17 87 L 12/01/18 23:15 84 L Laboratory Results Laboratory Results - last 24 hr 12/01/18 12/01/18 12/01/18 23:29 23:29 23:29 WBC 16.41 H RBC 5.13 Hgb 15.2 Hct 43.9 MCV 85.6 MCH 29.6 MCHC 34.6 RDW Std Deviation 48.3 H RDW Coeff of Giuliana 15.5 H Plt Count 239 MPV 11.6 H Immature Gran % (Auto) 1.3 Neut % (Auto) 77.8 Lymph % (Auto) 9.9 Runnels % (Auto) 8.8 Eos % (Auto) 1.8 Baso % (Auto) 0.4 Immature Gran # (Auto) 0.22 H Neut # (Auto) 12.76 H Lymph # (Auto) 1.63 Runnels # (Auto) 1.44 H Eos # (Auto) 0.30 Baso # (Auto) 0.06 PT 10.9 INR 1.1 VBG pH VBG pCO2 VBG pO2 VBG HCO3 VBG O2 Saturation VBG Base Excess Barometric Pressure Sodium Potassium Chloride Carbon Dioxide Anion Gap BUN Creatinine Est Cr Clr Drug Dosing Est GFR ( Amer) Est GFR (Non-Af Amer) BUN/Creatinine Ratio Glucose Lactate 1.2 Calcium Magnesium Troponin I NT-Pro-B Natriuret Pep 12/01/18 12/01/18 12/02/18 23:30 23:51 06:28 WBC 13.66 H RBC 4.49 Hgb 13.1 Hct 38.3 MCV 85.3 MCH 29.2 MCHC 34.2 RDW Std Deviation 48.5 H RDW Coeff of Giuliana 15.5 H Plt Count 224 MPV 11.2 H Immature Gran % (Auto) 1.5 Neut % (Auto) 69.8 Lymph % (Auto) 13.5 Runnels % (Auto) 12.9 Eos % (Auto) 2.0 Baso % (Auto) 0.3 Immature Gran # (Auto) 0.20 H Neut # (Auto) 9.54 H Lymph # (Auto) 1.85 Runnels # (Auto) 1.76 H Eos # (Auto) 0.27 Baso # (Auto) 0.04 PT INR VBG pH 7.49 H VBG pCO2 32 L VBG pO2 34 VBG HCO3 24 VBG O2 Saturation 67.5 VBG Base Excess 1.4 Barometric Pressure 728.5 Sodium 137 Potassium 3.9 Chloride 104 Carbon Dioxide 24 Anion Gap 10.0 BUN 17 Creatinine 0.77 Est Cr Clr Drug Dosing 62.2 Est GFR ( Amer) 88.8 Est GFR (Non-Af Amer) 76.6 BUN/Creatinine Ratio 21.7 H Glucose 94 Lactate Calcium 9.0 Magnesium 1.9 Troponin I < 0.015 NT-Pro-B Natriuret Pep 531 12/02/18 06:28 WBC RBC Hgb Hct MCV MCH MCHC RDW Std Deviation RDW Coeff of Giuliana Plt Count MPV Immature Gran % (Auto) Neut % (Auto) Lymph % (Auto) Runnels % (Auto) Eos % (Auto) Baso % (Auto) Immature Gran # (Auto) Neut # (Auto) Lymph # (Auto) Runnels # (Auto) Eos # (Auto) Baso # (Auto) PT INR VBG pH VBG pCO2 VBG pO2 VBG HCO3 VBG O2 Saturation VBG Base Excess Barometric Pressure Sodium 137 Potassium 3.4 L Chloride 102 Carbon Dioxide 27 Anion Gap 8.0 BUN 15 Creatinine 0.75 Est Cr Clr Drug Dosing 63.2 Est GFR ( Amer) 91.7 Est GFR (Non-Af Amer) 79.1 BUN/Creatinine Ratio 19.7 Glucose 89 Lactate Calcium 8.5 Magnesium 2.0 Troponin I NT-Pro-B Natriuret Pep Medications Administered Current Inpatient Medications Acetaminophen (Tylenol) 650 mg PO Q4H PRN PRN Reason: Pain or Fever Stop: 01/01/19 02:51 Last Admin: 12/02/18 03:17 Dose: 650 mg Documented by: Albuterol (Ventolin Hfa) 2 puffs INH Q3H PRN PRN Reason: Shortness Of Breath Stop: 01/01/19 02:51 Albuterol (Combivent Respimat) 2 puffs INH QID PRN PRN Reason: Wheezing Stop: 01/01/19 02:51 Clotrimazole (Mycelex) 10 mg BUCCAL 5XDQ4H ARNOLDO Stop: 12/12/18 06:59 Last Admin: 12/02/18 05:49 Dose: 10 mg Documented by: Heparin Sodium (Porcine) (Heparin Sodium (Porcine)) 5,000 units SQ Q12 ARNOLDO Stop: 01/01/19 08:59 Last Admin: 12/02/18 08:21 Dose: Not Given Documented by: Heparin Sodium/Dextrose () 1 ea IV NOW STA; Protocol Stop: 12/02/18 09:05 Furosemide 40 mg/ Syringe 4 mls @ 4 mls/min IV [id number] ARNOLDO Stop: 01/01/19 08:59 Last Admin: 12/02/18 08:18 Dose: 4 mls/min Documented by: Ioversol (Optiray 320 125ml) 125 ml IV ONCE PRN PRN Reason: Interaction Checking Stop: 12/06/18 04:11 Last Admin: 12/02/18 04:12 Dose: 118 ml Documented by: Ipratropium Kimball (Atrovent 0.02% 0.5mg/2.5ml) 0.5 mg INH Q4H PRN PRN Reason: Shortness Of Breath Or Wheezing Stop: 01/01/19 02:51 Levalbuterol HCl (Xopenex 1.25mg/0.5ml Neb) 1.25 mg INH Q4H PRN PRN Reason: Shortness Of Breath Or Wheezing Stop: 01/01/19 02:51 Levothyroxine Sodium (Synthroid) 50 mcg PO DAILYBB ARNOLDO Stop: 01/01/19 06:29 Last Admin: 12/02/18 05:49 Dose: 50 mcg Documented by: Miscellaneous (Order Awaiting Action) 1 ea N/A QS ARNOLDO Stop: 01/01/19 07:59 Last Admin: 12/02/18 07:26 Dose: Not Given Documented by: Nitroglycerin (Nitrostat) 0.4 mg SL UD PRN PRN Reason: Chest Pain Stop: 01/01/19 02:51 Ondansetron HCl (Zofran) 4 mg IV Q6H PRN PRN Reason: Nausea Stop: 01/01/19 02:51 Fluticasone/Salmeterol (Advair Diskus 500/50) 1 puffs INH Q12 ARNOLDO Stop: 01/01/19 08:59 Last Admin: 12/02/18 08:53 Dose: 1 puffs Documented by: Verapamil HCl (Calan) 40 mg PO TID ARNOLDO Stop: 01/01/19 08:59 Vitamin B Complex (Vitamin B Complex) 1 tab PO DAILY ARNOLDO Stop: 01/01/19 08:59 Last Admin: 12/02/18 08:18 Dose: 1 tab Documented by: Vitamin D (Vitamin D3) 1,000 units PO DAILY [facility] Stop: 01/01/19 08:59 Last Admin: 12/02/18 08:18 Dose: 1,000 units Documented by: Medications Combivent Respimat 2 puff INHALATION QID PRN 10/06/18 [History Confirmed 12/02/18] albuterol sulfate [Ventolin HFA] 2 puff INHALATION Q3H PRN 10/06/18 [History Confirmed 12/02/18] clotrimazole 10 mg BUCCAL 5XDQ4H 14 Days #14 tab 11/22/18 [Rx Confirmed 12/02/18] Vitamin D3 1,000 units PO DAILY 12/02/18 [History Confirmed 12/02/18] amlodipine 10 mg PO DAILY 12/02/18 [History Confirmed 12/02/18] aspirin 325 mg PO DAILY 12/02/18 [History Confirmed 12/02/18] fluticasone propion-salmeterol [Advair Diskus] 1 inh INHALATION Q12H 12/02/18 [History Confirmed 12/02/18] furosemide [Lasix] 20 mg PO DAILY 12/02/18 [History Confirmed 12/02/18] levothyroxine 50 mcg PO DAILY 12/02/18 [History Confirmed 12/02/18] potassium gluconate 595 mg PO DAILY 12/02/18 [History Confirmed 12/02/18] vitamin B complex 1 tab PO DAILY 12/02/18 [History Confirmed 12/02/18] Home Medications Acetaminophen (Tylenol) 650 mg PO Q4H PRN PRN Reason: Pain or Fever Stop: 01/01/19 02:51 Last Admin: 12/02/18 03:17 Dose: 650 mg Documented by: Albuterol (Ventolin Hfa) 2 puffs INH Q3H PRN PRN Reason: Shortness Of Breath Stop: 01/01/19 02:51 Albuterol (Combivent Respimat) 2 puffs INH QID PRN PRN Reason: Wheezing Stop: 01/01/19 02:51 Clotrimazole (Mycelex) 10 mg BUCCAL 5XDQ4H [facility] Stop: 12/12/18 06:59 Last Admin: 12/02/18 05:49 Dose: 10 mg Documented by: Heparin Sodium (Porcine) (Heparin Sodium (Porcine)) 5,000 units SQ Q12 ARNOLDO Stop: 01/01/19 08:59 Last Admin: 12/02/18 08:21 Dose: Not Given Documented by: Heparin Sodium/Dextrose () 1 ea IV NOW STA; Protocol Stop: 12/02/18 09:05 Furosemide 40 mg/ Syringe 4 mls @ 4 mls/min IV [id number] ARNOLDO Stop: 01/01/19 08:59 Last Admin: 12/02/18 08:18 Dose: 4 mls/min Documented by: Ioversol (Optiray 320 125ml) 125 ml IV ONCE PRN PRN Reason: Interaction Checking Stop: 12/06/18 04:11 Last Admin: 12/02/18 04:12 Dose: 118 ml Documented by: Ipratropium Kimball (Atrovent 0.02% 0.5mg/2.5ml) 0.5 mg INH Q4H PRN PRN Reason: Shortness Of Breath Or Wheezing Stop: 01/01/19 02:51 Levalbuterol HCl (Xopenex 1.25mg/0.5ml Neb) 1.25 mg INH Q4H PRN PRN Reason: Shortness Of Breath Or Wheezing Stop: 01/01/19 02:51 Levothyroxine Sodium (Synthroid) 50 mcg PO DAILYBB [facility] Stop: 01/01/19 06:29 Last Admin: 12/02/18 05:49 Dose: 50 mcg Documented by: Miscellaneous (Order Awaiting Action) 1 ea N/A QS [facility] Stop: 01/01/19 07:59 Last Admin: 12/02/18 07:26 Dose: Not Given Documented by: Nitroglycerin (Nitrostat) 0.4 mg SL UD PRN PRN Reason: Chest Pain Stop: 01/01/19 02:51 Ondansetron HCl (Zofran) 4 mg IV Q6H PRN PRN Reason: Nausea Stop: 01/01/19 02:51 Fluticasone/Salmeterol (Advair Diskus 500/50) 1 puffs INH Q12 ARNOLDO Stop: 01/01/19 08:59 Last Admin: 12/02/18 08:53 Dose: 1 puffs Documented by: Verapamil HCl (Calan) 40 mg PO TID [facility] Stop: 01/01/19 08:59 Vitamin B Complex (Vitamin B Complex) 1 tab PO DAILY ARNOLDO Stop: 01/01/19 08:59 Last Admin: 12/02/18 08:18 Dose: 1 tab Documented by: Vitamin D (Vitamin D3) 1,000 units PO DAILY [facility] Stop: 01/01/19 08:59 Last Admin: 12/02/18 08:18 Dose: 1,000 units Documented by: (1) DVT (deep venous thrombosis) Affected thrombotic vein of extremity: tibial Chronicity: acute DVT location: lower extremity Laterality: left Qualified Code(s): I82.442 - Acute embolism and thrombosis of left tibial vein (2) Acute and chronic respiratory failure Respiratory failure complication: hypoxia Qualified Code(s): J96.21 - Acute and chronic respiratory failure with hypoxia
[2018-12-02] MEDS: VERAPAMIL HCL 40 MG TAB PO SCH ×3 (10:48→21:29)
[2018-12-02] MEDS ORDERED: POTASSIUM CHLORIDE 20 MEQ TABCR PO STA (10:58)
[2018-12-02] MEDS ORDERED: HEPARIN IV BOLUS 5,000 UNITS in SYRINGE 0 ML IV ONE (11:00)
[2018-12-02] MEDS: Heparin Adult STANDARD Wt-Based Dextrose 5% 25,000 units/500 mL IV SCH (15:47)
[2018-12-03] MEDS: LEVOTHYROXINE SODIUM 50 MCG TABLET PO SCH (05:38)
[2018-12-03] MEDS: CLOTRIMAZOLE 10 MG TROCHE BUCCAL SCH ×5 (05:39→23:43)
[2018-12-03] MEDS: FUROSEMIDE 40 MG in SYRINGE 0 ML IV SCH (08:54)
[2018-12-03] MEDS: VITAMIN B COMPLEX TAB PO SCH (08:55)
[2018-12-03] MEDS: CHOLECALCIFEROL 1,000 UNITS TAB PO SCH (08:55)
[2018-12-03] MEDS: VERAPAMIL HCL 40 MG TAB PO SCH ×3 (08:55→21:05)
[2018-12-03] MEDS: FLUTICASONE/SALMETEROL (ADVAIR) 500/50 INH 14 PUFF INH SCH ×2 (08:55→21:06)
--- NOTE | 2018-12-03 10:53 | Cardiology Progress Note ---
Date of Service December 03, 2018 Assessment & Plan (1) Acute and chronic respiratory failure: Patient admitted with acute on chronic respiratory failure which is multifactorial including noncompliance with medications, mild volume overload, possible exacerbation of COPD with underlying interstitial lung disease. Volume status improved with IV diuretic therapy. A.m. labs pending at this time. Will place IV diuretics on hold. Plan transition to oral furosemide pending review of lab studies. Recommend pulmonary consultation. (2) DVT (deep venous thrombosis): Left posterior tibial deep venous thrombosis noted. Recommend IV heparin. Thromboembolic risk discussed. Patient currently refusing treatment. (3) Acute on chronic diastolic (congestive) heart failure: Volume status markedly improved with IV diuretic therapy. Hold IV Lasix. Monitor fluid balance, daily weight, electrolytes, and GFR. Continue low-dose verapamil to improve heart rate control in the setting of chronic hypoxia. Patient is not a good candidate for beta-eze therapy due to underlying pulmonary disease. (4) Medical non-compliance: (5) Noncompliance: Subjective Patient seen and examined at the bedside. Intermittently refusing medical therapy. Refused intravenous heparin. Hypoxia unchanged. Heart rate mildly improved with addition of verapamil. Pulmonary consultation pending at this time. Fluid balance -2 L overnight. No repeat BMP available for review currently. Review of Systems Review of Systems: All systems reviewed & are unremarkable except as noted in HPI & below Physical Exam Physical Exam: General: NAD, AAO x3, well nourished. Chronically ill. HEENT: Normocephalic. Atraumatic. Conjunctiva pink, no scleral icterus. Neck: No carotid bruits, the carotid upstrokes are brisk. No JVD. No HJR Heart: Regular, borderline tachycardic, normal S-1 and S-2 no S-3 or S-4 gallop. No murmurs or rub appreciated. PMI is not displaced. No RV heave. Lungs: Diminished breath sounds bilateral. No rhonchi or wheeze. There are scant crackles at the right base. Abdomen: Normal bowel sounds. Soft. Nontender. No masses or organomegaly. No abdominal bruits. Extremities: 1+ mild, pedal, ankle, and pretibial edema bilaterally. No clubbing or cyanosis. Pulses: radial=2/4, Dorsalis pedis =2/4, posterior tibial=2/4. Neuro: Cranial nerves grossly intact. No focal motor deficit. Results & Data Vital Signs (Past 12 Hours) Vital Signs Temp Pulse Resp BP Pulse Ox 12/03/18 08:08 36.9 C 84 20 124/69 88 L 12/03/18 03:27 36.4 C L 84 22 118/71 91 12/02/18 23:44 36.1 C L 74 22 114/67 90 (1) DVT (deep venous thrombosis) Affected thrombotic vein of extremity: tibial Chronicity: acute DVT location: lower extremity Laterality: left Qualified Code(s): I82.442 - Acute embolism and thrombosis of left tibial vein (2) Acute and chronic respiratory failure Respiratory failure complication: hypoxia Qualified Code(s): J96.21 - Acute and chronic respiratory failure with hypoxia
[2018-12-03 11:59] LABS: BUN Creatinine Ratio 25.7 (10-20); Calcium 8.5 mg/dl (8.5-10.1); Creatinine Clr Calc Pharmacy 61.4 ml/min; Est GFR (African American) 88.8; Est GFR (Non-African American) 76.6; Potassium 3.2 mmol/L (3.5-5.1)
[2018-12-03] MEDS ORDERED: HEPARIN IV BOLUS 5,000 UNITS in SYRINGE 0 ML IV ONE (12:30)
[2018-12-03 13:17] LABS: INR 1.1 (0.9-1.1); Partial Thromboplastin Ratio 1.1; Partial Thromboplastin Time 29.6 Seconds (21.0-31.0); Prothrombin Time 11.3 Seconds (9.0-12.0)
[2018-12-03 13:53] LABS: Basophils # (auto) 0.03 K/uL (0-0.2); Basophils % (auto) 0.2 %; Eosinophils # (auto) 0.26 K/uL (0-0.5); Eosinophils % (auto) 1.8 %; Hematocrit (blood only) 41.1 % (37-47); Hemoglobin 14.2 g/dL (12.0-16.0); Immature Granulocytes # (auto) 0.13 K/uL (0.00-0.02); Immature Granulocytes % (auto) 0.9 %; Lymphocytes # (auto) 1.25 K/uL (1.2-3.4); Lymphocytes % (auto) 8.5 %; Mean Corpuscular Hgb Conc 34.5 g/dL (32-36); Mean Corpuscular Volume 85.1 fL (80-100); Mean Platelet Volume 12.4 fL (7.4-10.4); Monocytes # (auto) 1.63 K/uL (0.11-0.59); Monocytes % (auto) 11.1 %; Neutrophils # (auto) 11.44 K/uL (1.4-6.5); Neutrophils % (auto) 77.5 %; Platelet Count 206 K/uL (130-400); RDW Coefficient of Variation 15.2 % (11.5-14.5); RDW Standard Deviation 47.5 fL (36.4-46.3); Red Blood Count 4.83 M/uL (4.2-5.4); White Blood Count 14.74 K/uL (4.8-10.8)
[2018-12-03] MEDS: Heparin Adult STANDARD Wt-Based Dextrose 5% 25,000 units/500 mL IV SCH (13:54)
[2018-12-03] MEDS: ACETAMINOPHEN 325 MG TAB PO PRN ×2 (14:41→23:57)
[2018-12-03] MEDS ORDERED: POTASSIUM CHLORIDE 20 MEQ TABCR PO STA (17:46)
--- NOTE | 2018-12-03 19:22 | Hospitalist Progress Note ---
Date of Service December 03, 2018 Assessment & Plan (1) Acute and chronic respiratory failure: Patient admitted with acute on chronic respiratory failure which is multifactorial including noncompliance with medications, volume overload, possible exacerbation of COPD with underlying interstitial lung disease. appreciate input from cardiology Volume status improved with IV diuretic therapy. Plan transition to oral furosemide tomorrow pulmonary consultation requested , appreciate input (2) DVT (deep venous thrombosis): Left posterior tibial deep venous thrombosis noted on lower ext USG CTA of chest negative for PE IV heparin was ordered yesterday 12/02/2018 by cardiology pt refused to start anticoagulation saying its " rat poison " , her friends had lots of side effects from blood thinner and thinks her blood already "thin enough" . Thromboembolic risk discussed. pt is agreeable to allow to start on IV heparin this AM , still indecisive regarding [facility] anticoagluation IV heparin started on with wt based protocol has been tolerating , without any bleeding complication (3) Acute on chronic diastolic (congestive) heart failure: Volume status markedly improved with IV diuretic therapy. Monitor fluid balance, daily weight, appreciate input form Cardiology low-dose verapamil ordered to improve heart rate control. Patient is not a good candidate for beta-eze therapy due to underlying pulmonary disease. (4) Medical non-compliance: has been a chronic issue , causing repeated hospital admissions in past pt will quit taking meds as she wishes will not allow physician to adjust meds or addition of meds for HR control , decompensated CHF very difficult to convince the benefit of treatment repeated counselling provided by multi specialists -cardiology /hospitalist -pt is set in her own way last admission was discharged to [facility] -where she would dictate her won treatment /medicine regimen recently discharged form SNF , at present living at [facility] with her son social service consulted for discharge planning -this admission pt is adament to return home , SNF /rehab is not an option referral made to Home Health nursing (5) Noncompliance: (6) Patient is Adventism: (7) Pulmonary nodule, right: CTA chest : Slight increase in size of a 1.7 x 1.2 cm right lower lobe lobulated pulmonary nodule since CT of March 14, 2018. This is indeterminate and a neoplasm cannot be excluded. Pulmonary consultation is recommended. 1 cm nodule was noted in 2010 , FNA was recommended , pt refused hx of [facility] smoking /high risk for malignancy pulmonary input requested CODE STATUS : FULL CODE DVT PROPHYLAXIS : on IV heparin DISPOSITION : at present lives at home with son recently discharged form [facility] after short term rehab PT/OT jose requested pt voiced that she will not go to rehab , wants to return home [facility] for home health Subjective pt complains of feeling tired still very hypoxic , keep 02 nasal canula in her mouth found to be dyspnic during conversation says the pressure /discomfort underneath her rib cage -the reason she came to hospital has improved refused iV heparin for lower ext DVT /agreeable today Iv heparin started this AM , still is denial regarding her clinical condition , importance of dietary salt restriction /taking meds specially lasix as instructed pt says she stopped taking lasix as it made her "urinate more often" and she was tired of it ( multiple readmission with vol overload /decompensated CHF in last 8 weeks for stop taking Lasix at home ) counseling provided -that she started to feel better after treatment on Iv lasix in Hospital her SOB can be improved at home if she takes Lasix as directed pt mentions " she will think about it " Physical Exam Constitutional: + ill appearing in moderate respiratory distress Eyes: + anicteric sclerae ENMT: external ear and nose normal, oropharynx normal Neck: trachea midline, no thyromegaly Respiratory: + respiratory distress, + uses accessory muscles and + cough Auscultation: + crackles and + rales; no rhonchi and no wheezes Cardiovascular: Rate/Rhythm: regular rate and regular rhythm Extremities: + pedal edema (+2) Gastrointestinal (Abdomen): Inspection/Auscultation: normal bowel sounds Percussion/Palpation: abdomen soft; abdomen nontender Neurologic: PERRL, EOMI, accommodation nl, no face palsy, no dysarthria Psychiatric: Orientation: alert and oriented x 3 Affect: + flat affect Results & Data Vital Signs (Past 12 Hours) Vital Signs Temp Pulse Pulse Resp BP Pulse Ox 12/03/18 19:18 36.6 C 76 20 145/78 H 91 12/03/18 15:34 37.0 C 76 20 119/71 88 L 12/03/18 12:08 36.8 C 76 20 131/63 94 12/03/18 08:08 36.9 C 84 20 124/69 88 L 12/03/18 08:00 91 H (1) DVT (deep venous thrombosis) Affected thrombotic vein of extremity: tibial Chronicity: acute DVT location: lower extremity Laterality: left Qualified Code(s): I82.442 - Acute embolism and thrombosis of left tibial vein (2) Acute and chronic respiratory failure Respiratory failure complication: hypoxia Qualified Code(s): J96.21 - Acute and chronic respiratory failure with hypoxia
[2018-12-03 20:41] LABS: Partial Thromboplastin Time 55.2 Seconds (21.0-31.0)
--- NOTE | 2018-12-03 22:36 | Consultation Report ---
DATE OF CONSULTATION: 12/03/2018 DATE OF CONSULT: 12/03/2018 TIME: 3:30 p.m. REPORT OF CONSULTATION: The patient was seen in room 222. Consultation is requested regarding shortness of breath and a history of emphysema. She is a 73-year-old female who has had multiple recent hospital stays. She was hospitalized from 10/06/2018 until 10/10/2018 with an exacerbation of COPD. She was hospitalized again from 11/19/2018 until 11/22/2018 with respiratory failure. She came to the Emergency Room most recently in the late hours of 12/01/2018. She was brought by ambulance from home she states. She came in because of worsening shortness of breath. The patient is not the best historian. She apparently has had relative noncompliance with medications at times. Reportedly, she had stopped taking Lasix for a few days. She had been on a course of levofloxacin very recently. She had been living at [facility] for a few months, but she states she was home for a few days prior to this admission. She states that in [facility], she was able to walk with a walker about 300 feet at a time. She has had breathing troubles for at least about 15 years. The patient smoked for a total of about 20 years at 1 pack per day. She states she quit smoking in 1978. She never had any jobs working with dust, fumes or chemicals. She carries a history of COPD. She states she had a pulmonary function test done, but it was many years ago. She could not give me details about that. She estimates it may have been back in 2004. Other pulmonary problems include emphysema and restrictive lung disease. "How that diagnosis was made I don't know." She has a history of one or more pulmonary nodules. She has a nodule currently at the right lung base that is getting slightly larger, but the patient has not wanted any workup for this. She is on oxygen therapy as an outpatient. She remains quite hypoxic even while utilizing oxygen. She does not like the nasal cannula enter her nostrils. She prefers to have it in her mouth. She is claustrophobic and cannot tolerate an oxygen mask. During this hospital stay, she was found to have a DVT of the left posterior tibial vein. She did not have PE on CT angio, however. She feels a little better than when she came in. She states that she seldom wheezes. She does cough and bring up phlegm which is usually clear or sometimes white. She has not had chest pains. She denies chills, fevers or sweats. The patient made it clear to me that she is into alternative treatment. She assured me for instance that it is known that baking soda cures lung cancer. PAST SURGICAL HISTORY: 1. Tubal ligation. 2. D and C. PAST MEDICAL HISTORY: 1. Hypertension. 2. Hyperlipidemia. 3. Venous stasis dermatitis. 4. Atrial fibrillation. 5. Sciatica. 6. Cellulitis of the left leg. 7. Childbirth x5. SOCIAL HISTORY: Tobacco 1 pack per day for 20 years. ETOH -- seldom. OCCUPATIONAL HISTORY: Denies any exposure history to dust, fumes or chemicals. FAMILY HISTORY: Father had heart disease, black lung and Alzheimer's disease. Maternal grandmother had some type of cancer and Alzheimer disease. MEDICATIONS AN OUTPATIENT: 1. Ventolin HFA. 2. Amlodipine 10 mg daily. 3. Aspirin 325 mg daily. 4. Clotrimazole camden 5 times daily. 5. Combivent Respimat p.r.n. 6. Advair 1 puff q.12 hours. 7. Lasix 20 mg daily. 8. Levothyroxine 50 mcg daily. 9. Potassium daily. 10. Vitamin B complex daily. 11. Vitamin D3 daily. ALLERGIES: No known allergies. REVIEW OF SYSTEMS: The patient has had some headaches. She denies any blood in her nostrils, although some was seen on exam. Denies difficulty swallowing. Denies heartburn. She states that taking vinegar prevents heartburn. Her appetite reportedly is good. Denies bowel complaints. Denies urinary problems. Denies significant pain. The remainder of the review of systems is negative except as noted in the history of present illness. Ten systems reviewed. PHYSICAL EXAMINATION: VITAL SIGNS: The patient is a 73-year-old female who was cooperative, alert and oriented. She was in no distress. She was, however, hypoxic throughout the exam with saturations ranging from 84-87% despite having nasal cannula with 5 liters which was sometimes in her mouth and sometimes in her nose and sometimes not in at all. HEENT: Pupils were reactive to light. Nasal exam showed some blood as noted. She also was found to have a perforated nasal septum. Mouth exam shows an absence of teeth. No lymph nodes are palpable. CHEST: Cardiac rate 76 per minute. Rhythm regular. Blood pressure 119/71. LUNGS: Auscultation of the lung shah revealed rales at both bases. No wheezing heard. Respiratory rate 20 and not labored. Temperature 37 degrees. She has had no significant fevers. ABDOMEN: Soft. Bowel sounds were active. No tenderness to palpation or masses. EXTREMITIES: Showed no cyanosis, clubbing or edema. Venous Doppler showed a focal acute deep vein thrombosis in the left posterior tibial vein and a superficial thrombophlebitis involving the greater saphenous veins bilaterally. CT angio of the chest showed no evidence of pulmonary emboli. Emphysema was noted. There is a nodule at the right lung base just above the diaphragm measuring 1.2 x 1.7 cm. There has been a slight increase in size from 03/14/2018 when it previously measured maximum 1.6 cm. It should be noted that she had a prior venous Doppler on 10/06/2018 that was negative. LABORATORY DATA: White count is 14.74. Hemoglobin 14.2. Platelets 206,000. Differential showed 77.5 neutrophils, 8.5 lymphs, 11.1 monos, 1.8 eos. Coags are normal. Blood gas done on admission was venous blood gas. The pCO2 was 32. Electrolytes show sodium 132, potassium 3.2, chloride 98, bicarbonate 29. BUN 20 with a creatinine 0.77. Calcium 8.5. Blood cultures are negative. Echocardiogram done on 10/07/2018 showed grade 2 diastolic dysfunction with normal right ventricle and EF greater than 70%. EKG shows somatic tremor. The rhythm was normal sinus. T-wave inversions were noted in V2 and V3. These were not seen on 12/01/2018. Ischemia cannot be excluded. IMPRESSION: 1. Respiratory failure -- acute on chronic with hypoxia. 2. Emphysema. 3. Right lower lobe nodule 1.7 cm -- not clear if this is benign or malignant. 4. Deep venous thrombosis of the left posterior tibial vein. 5. Diastolic congestive heart failure. 6. T12-L1 compression fracture suggested on CT. COMMENTS AND RECOMMENDATIONS: The patient is very strong personality and has her own ideas about healthcare. She believes in alternative medicines. She made it clear she does not want any specific followup regarding the lung nodule. Ideally, we would suggest at least a 6-month followup CAT scan. She is on IV heparin for now. I do agree with that. I believe she does need treatment for the DVT. It is difficult to get the patient to take her medications. She seems to be fine taking Advair daily despite the fact she apparently frequently gets thrush. I suggested the possibility of Spiriva to her. She indicated that she feels that as too many side effects based upon their ads on TV. I tried to reassure her that I thought the side effect ratio was actually low. She has nebs treatments ordered, but they are just p.r.n. Apparently, she has refused them in the past. Likewise, she has Combivent Respimat ordered p.r.n. I explained to her that Combivent Respimat contains albuterol the same as Ventolin has. It sounded like she was taking both at the same time at times in the past. As noted, she is still quite hypoxic. She has not been on any steroids. I do not know if she has had problems with steroids in the past or not. I do not know if she had refused steroids in the past. Consideration could be given to a short course of methylprednisolone or prednisone. We will defer this to the hospitalist team. Thank you for asking me to assist in her care. MELITA
[2018-12-04 02:58] LABS: BUN Creatinine Ratio 24.5 (10-20); Calcium 8.3 mg/dl (8.5-10.1); Creatinine Clr Calc Pharmacy 62.2 ml/min; Est GFR (African American) 90.2; Est GFR (Non-African American) 77.8; Potassium 3.5 mmol/L (3.5-5.1)
[2018-12-04 02:59] LABS: Partial Thromboplastin Ratio 2.1
[2018-12-04 03:10] LABS: Partial Thromboplastin Time 58.2 Seconds (21.0-31.0)
[2018-12-04] MEDS: LEVOTHYROXINE SODIUM 50 MCG TABLET PO SCH (04:43)
[2018-12-04] MEDS: CLOTRIMAZOLE 10 MG TROCHE BUCCAL SCH ×5 (05:57→23:01)
[2018-12-04] MEDS: VERAPAMIL HCL 40 MG TAB PO SCH ×3 (08:12→21:07)
[2018-12-04] MEDS: FLUTICASONE/SALMETEROL (ADVAIR) 500/50 INH 14 PUFF INH SCH ×2 (08:12→21:10)
[2018-12-04] MEDS: VITAMIN B COMPLEX TAB PO SCH (08:12)
[2018-12-04] MEDS: CHOLECALCIFEROL 1,000 UNITS TAB PO SCH (08:12)
[2018-12-04] MEDS: ACETAMINOPHEN 325 MG TAB PO PRN ×2 (09:30→22:26)
--- NOTE | 2018-12-04 09:36 | Cardiology Progress Note ---
Date of Service December 04, 2018 Assessment & Plan (1) Acute and chronic respiratory failure: Patient admitted with acute on chronic respiratory failure which is multifactorial including noncompliance with medications, mild volume overload, possible exacerbation of COPD with underlying interstitial lung disease. Appreciate pulmonary medicine input. (2) DVT (deep venous thrombosis): Left posterior tibial deep venous thrombosis noted. Recommend IV heparin. Thromboembolic risk discussed. Patient currently refusing treatment. (3) Acute on chronic diastolic (congestive) heart failure: Volume status improved with IV diuretic therapy. Monitor fluid balance, daily weight, electrolytes, and GFR. Continue low-dose verapamil to improve heart rate control in the setting of chronic hypoxia. Patient is not a good candidate for beta-eze therapy due to underlying pulmonary disease. Transition to oral Lasix today. (4) Medical non-compliance: (5) Noncompliance: (6) Abnormal ECG: Repeat limited echocardiogram to assess wall motion. Repeat troponin pending although I suspect will be elevated due to chronic hypoxia. Subjective 73-year-old female seen in follow-up. Hypoxia unchanged. Continues to report some discomfort under the right side of her ribs. Heart rate has improved with addition of verapamil. Edema has resolved. No orthopnea. Denies palpitations, lightheadedness, dizziness, syncope, or near syncope. Agreed to start heparin overnight. No signs/symptoms of GI/ blood loss. She is concerned regarding additional medical therapies. Prefers natural remedies. Review of Systems Review of Systems: All systems reviewed & are unremarkable except as noted in HPI & below Physical Exam Physical Exam: General: NAD, AAO x3, well nourished. Chronically ill. Tachypneic. HEENT: Normocephalic. Atraumatic. Conjunctiva pink, no scleral icterus. Neck: No carotid bruits, the carotid upstrokes are brisk. No JVD. No HJR Heart: Regular, borderline tachycardic, normal S-1 and S-2 no S-3 or S-4 gallop. No murmurs or rub appreciated. PMI is not displaced. No RV heave. Lungs: Diminished breath sounds bilateral. No rhonchi or wheeze. There are scant crackles at the right base. Abdomen: Normal bowel sounds. Soft. Nontender. No masses or organomegaly. No abdominal bruits. Extremities: Trace pedal edema, pedal, ankle, and pretibial edema bilaterally. No clubbing or cyanosis. Pulses: radial=2/4, Dorsalis pedis =2/4, posterior tibial=2/4. Neuro: Cranial nerves grossly intact. No focal motor deficit. Results & Data Vital Signs (Past 12 Hours) Vital Signs Temp Pulse Pulse Resp BP BP Pulse Ox 12/04/18 07:30 36.8 C 78 20 137/65 92 12/04/18 03:18 36.7 C 72 22 142/74 H 91 12/03/18 23:51 88 L 12/03/18 23:42 36.9 C 88 22 126/78 86 L 12/03/18 23:30 88 Laboratory Results Laboratory Results - last 24 hr 12/03/18 12/03/18 12/03/18 10:34 12:48 12:48 WBC 14.74 H RBC 4.83 Hgb 14.2 Hct 41.1 MCV 85.1 MCH 29.4 MCHC 34.5 RDW Std Deviation 47.5 H RDW Coeff of Giuliana 15.2 H Plt Count 206 MPV 12.4 H Immature Gran % (Auto) 0.9 Neut % (Auto) 77.5 Lymph % (Auto) 8.5 Benson % (Auto) 11.1 Eos % (Auto) 1.8 Baso % (Auto) 0.2 Immature Gran # (Auto) 0.13 H Neut # (Auto) 11.44 H Lymph # (Auto) 1.25 Benson # (Auto) 1.63 H Eos # (Auto) 0.26 Baso # (Auto) 0.03 PT 11.3 INR 1.1 APTT 29.6 PTT Ratio 1.1 Sodium 132 L Potassium 3.2 L Chloride 98 Carbon Dioxide 29 Anion Gap 5.0 BUN 20 H Creatinine 0.77 Est Cr Clr Drug Dosing 61.4 Est GFR ( Amer) 88.8 Est GFR (Non-Af Amer) 76.6 BUN/Creatinine Ratio 25.7 H Glucose 123 H Calcium 8.5 Magnesium 12/03/18 12/04/18 12/04/18 20:06 02:20 02:20 WBC RBC Hgb Hct MCV MCH MCHC RDW Std Deviation RDW Coeff of Giuliana Plt Count MPV Immature Gran % (Auto) Neut % (Auto) Lymph % (Auto) Benson % (Auto) Eos % (Auto) Baso % (Auto) Immature Gran # (Auto) Neut # (Auto) Lymph # (Auto) Benson # (Auto) Eos # (Auto) Baso # (Auto) PT INR APTT 55.2 H* 58.2 H* PTT Ratio 2.0 2.1 Sodium 133 L Potassium 3.5 Chloride 99 Carbon Dioxide 28 Anion Gap 6.0 BUN 19 H Creatinine 0.76 Est Cr Clr Drug Dosing 62.2 Est GFR ( Amer) 90.2 Est GFR (Non-Af Amer) 77.8 BUN/Creatinine Ratio 24.5 H Glucose 111 H Calcium 8.3 L Magnesium 2.0 ECG Additional Comments: Sinus rhythm, T wave inversion in V1 and V2. (1) DVT (deep venous thrombosis) Affected thrombotic vein of extremity: tibial Chronicity: acute DVT location: lower extremity Laterality: left Qualified Code(s): I82.442 - Acute embolism and thrombosis of left tibial vein (2) Acute and chronic respiratory failure Respiratory failure complication: hypoxia Qualified Code(s): J96.21 - Acute and chronic respiratory failure with hypoxia
--- NOTE | 2018-12-04 10:09 | Progress Note ---
DATE: 12/04/2018 PULMONARY PROGRESS NOTE TIME: 9:50 a.m. SUBJECTIVE: The patient remains short of breath. She is now wearing an OxyMask which she is tolerating better. Even with 7 liters of oxygen through the OxyMask, she is saturating only at 92%. She states she has a cough and continues to bring out some phlegm. She denies any chest pains, chills, fevers or sweats. OBJECTIVE: GENERAL: The patient appeared in no acute distress. VITAL SIGNS: Temperature is 36.8. There have been no fevers. Cardiac rate 78 per minute. Rhythm regular. Blood pressure 137/65. LUNGS: Respiratory rate 20 breaths per minute. It was not labored at present. Auscultation revealed diffusely diminished breath sounds. Mild rales heard at both bases. Saturation 92% on the OxyMask 7 liters as noted. ABDOMEN: Soft and nontender. EXTREMITIES: Showed no cyanosis or clubbing. Trace edema was noted. LABORATORY DATA: PTT early this morning was 58.2. Electrolytes show sodium 133, potassium 3.5, chloride 99, and bicarbonate 28. BUN 19 with a creatinine of 0.76. IMPRESSION: 1. Respiratory failure - acute on chronic - with hypoxia. 2. Emphysema. 3. A 1.7 cm right lower lobe nodule. 4. Left deep venous thrombosis, posterior tibial vein. 5. Diastolic congestive heart failure. COMMENTS AND RECOMMENDATIONS: The patient is still shunting. She is agreeable to getting treated with steroids. She states it has helped in the past. She is agreeable to getting nebulizer treatments on a regular basis. They are ordered p.r.n., but she is not really getting them. We will see if this allows us to ultimately decrease her oxygen needs. I discussed with her the possibility of Mucinex. I thought the fact that it was an over the [id number] drug might appeal to her, but for right now, she does not want to consider that in an attempt to improve her secretion output.
[2018-12-04] MEDS: Heparin Adult STANDARD Wt-Based Dextrose 5% 25,000 units/500 mL IV SCH (11:42)
--- NOTE | 2018-12-04 13:28 | Hospitalist Progress Note ---
Date of Service December 04, 2018 Assessment & Plan (1) Acute and chronic respiratory failure: Patient admitted with acute on chronic respiratory failure which is multifactorial including noncompliance with medications, volume overload, possible exacerbation of COPD with underlying interstitial lung disease. On 6 L oxygen (During last admission, she was on 5 - 6 L oxygen) Volume status improved -S/P IV Lasix ---> Transitioned to PO lasix today -Pulmonary consulted (2) DVT (deep venous thrombosis): Left posterior tibial deep venous thrombosis noted on lower ext USG CTA of chest negative for PE -IV heparin was ordered on 12/02/2018 by cardiology --> Pt refused to start anticoagulation saying its " rat poison " , her friends had lots of side effects from blood thinner and thinks her blood already "thin enough" . Thromboembolic risk was discussed. -Finally she is agreeable to allow to start on IV heparin this AM , still indecisive regarding long-term anti-coagluation (3) Acute on chronic diastolic (congestive) heart failure: Volume status markedly improved with IV diuretic therapy. Transition to p.o. Lasix today Started on low-dose verapamil by cardiology to improve heart rate, tolerating it well. Patient is not a candidate for beta-eze due to underlying pulmonary disease Echo shows EF more than 70%, RV volume overload, moderately dilated RV, moderately reduced right ventricular systolic function, mild TR -Appreciate cardiology inputs. (4) Medical non-compliance: Has been a chronic issue , causing repeated hospital admissions in past Believes in self healing so on and off refusing her medications. Will not allow physician to adjust medications, addition of meds Challenging to convince her the benefit of treatment. Unfortunately, she will have repeated hospitalizations for the same reason Patient has her own way of thinking and would not listen to healthcare professionals (5) Noncompliance: (6) Patient is Mu-ism: (7) Pulmonary nodule, right: CTA chest : Slight increase in size of a 1.7 x 1.2 cm right lower lobe lobulated pulmonary nodule since CT of March 14, 2018. This is indeterminate and a neoplasm cannot be excluded. Pulmonary consultation is recommended. 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 Hypoxia unchanged. Continues to report some discomfort under the right side of her ribs. Heart rate has improved with addition of verapamil. Edema has resolved. No orthopnea. Denies palpitations, lightheadedness, dizziness, syncope, or near syncope. Known to be noncompliant and refuses medications on and off as believes in self- healing Physical Exam Physical Exam: GENERAL- AAOX3, No acute distress NECK- Supple, no JVD LUNGS-diminished breath sounds bilateral, no rhonchi or wheeze, scant crackles. HEART- Regular rate and rhythm. No murmurs ABDOMEN- Soft, non tender, non distended, Bowel sounds heard. EXTREMITIES-trace pedal edema. Results & Data Vital Signs (Past 12 Hours) Vital Signs Temp Pulse Resp BP BP Pulse Ox Pulse Ox 12/04/18 11:32 36.7 C 76 22 113/74 93 12/04/18 11:25 91 12/04/18 11:20 90 12/04/18 07:30 36.8 C 78 20 137/65 92 12/04/18 03:18 36.7 C 72 22 142/74 H 91 Pulse Ox Pulse Ox 12/04/18 11:32 12/04/18 11:25 12/04/18 11:20 91 86 L 12/04/18 07:30 12/04/18 03:18 (1) Acute and chronic respiratory failure Respiratory failure complication: hypoxia Qualified Code(s): J96.21 - Acute and chronic respiratory failure with hypoxia (2) DVT (deep venous thrombosis) DVT location: lower extremity Affected thrombotic vein of extremity: tibial Chronicity: acute Laterality: left Qualified Code(s): I82.442 - Acute embolism and thrombosis of left tibial vein
[2018-12-04] MEDS: LEVALBUTEROL 1.25MG/0.5ML NEB INH SCH ×2 (14:55→23:12)
[2018-12-04] MEDS: IPRATROPIUM BROMIDE NEB SOLN 0.02% 2.5 ML VIAL INH SCH ×2 (14:55→23:12)
[2018-12-04] MEDS: POLYETHYLENE (MIRALAX) 17 GM PACK PO PRN (21:17)
[2018-12-04] MEDS ORDERED: methylPREDNISolone 40 MG in SYRINGE 0 ML IV SCH (22:00)
[2018-12-05 02:49] LABS: Partial Thromboplastin Ratio 2.2
[2018-12-05 02:51] LABS: Partial Thromboplastin Time 59.3 Seconds (21.0-31.0)
[2018-12-05] MEDS: LEVOTHYROXINE SODIUM 50 MCG TABLET PO SCH (05:50)
[2018-12-05 06:16] LABS: Hematocrit (blood only) 36.2 % (37-47); Hemoglobin 12.7 g/dL (12.0-16.0); Mean Corpuscular Hgb Conc 35.1 g/dL (32-36); Mean Corpuscular Volume 83.6 fL (80-100); RDW Coefficient of Variation 14.5 % (11.5-14.5); RDW Standard Deviation 44.1 fL (36.4-46.3); Red Blood Count 4.33 M/uL (4.2-5.4); White Blood Count 6.37 K/uL (4.8-10.8)
[2018-12-05 06:27] LABS: Mean Platelet Volume 12.5 fL (7.4-10.4); Platelet Count 132 K/uL (130-400)
[2018-12-05 06:29] LABS: Partial Thromboplastin Ratio 2.3
[2018-12-05 06:33] LABS: Partial Thromboplastin Time 62.1 Seconds (21.0-31.0)
[2018-12-05 06:35] LABS: BUN Creatinine Ratio 31.4 (10-20); Creatinine Clr Calc Pharmacy 86.3 ml/min; Est GFR (African American) 108.5; Est GFR (Non-African American) 93.6; Magnesium 2.2 mg/dl (1.8-2.4); Potassium 3.3 mmol/L (3.5-5.1)
[2018-12-05] MEDS: IPRATROPIUM BROMIDE NEB SOLN 0.02% 2.5 ML VIAL INH SCH ×3 (07:07→23:42)
[2018-12-05] MEDS: LEVALBUTEROL 1.25MG/0.5ML NEB INH SCH ×3 (07:07→23:42)
[2018-12-05] MEDS: FLUTICASONE/SALMETEROL (ADVAIR) 500/50 INH 14 PUFF INH SCH ×2 (08:36→20:38)
[2018-12-05] MEDS: VITAMIN B COMPLEX TAB PO SCH (08:37)
[2018-12-05] MEDS: CLOTRIMAZOLE 10 MG TROCHE BUCCAL SCH ×5 (08:37→23:44)
[2018-12-05] MEDS: VERAPAMIL HCL 40 MG TAB PO SCH ×3 (08:37→20:37)
[2018-12-05] MEDS: predniSONE 20 MG TAB PO SCH (08:37)
[2018-12-05] MEDS: CHOLECALCIFEROL 1,000 UNITS TAB PO SCH (08:38)
--- NOTE | 2018-12-05 11:40 | Cardiology Progress Note ---
Date of Service December 05, 2018 Assessment & Plan (1) Acute and chronic respiratory failure: Patient admitted with acute on chronic respiratory failure which is multifactorial including noncompliance with medications, mild volume overload, possible exacerbation of COPD with underlying interstitial lung disease. Appreciate pulmonary medicine input. Respiratory status improved with addition of corticosteroids. Repeat resting 2D transthoracic echocardiogram demonstrates preserved LV systoli c function with moderate right ventricular dilation and dysfunction and indirect evidence of moderate to severe pulmonary hypertension. (2) Chronic systolic dysfunction of right ventricle: Repeat echogram demonstrates right ventricular dilatation and systolic dysfunction. Overall RV function not significantly changed compared to prior echocardiogram, however, estimated systolic pulmonary arterial pressures have increased with septal flattening suggesting RV pressure/volume overload. Volume status has improved with IV diuretic therapy. Continue oral diuretic therapy. Treatment of underlying pulmonary process/emphysema/COPD as per pulmonary medicine. (3) DVT (deep venous thrombosis): Left posterior tibial deep venous thrombosis noted. Recommend IV heparin. Thromboembolic risk discussed. Patient agreeable to IV heparin. Considering oral anticoagulation with Xarelto as outpatient. (4) Medical non-compliance: (5) Noncompliance: Subjective Patient seen and examined the bedside. Respiratory status improved. Oxygenation unchanged. Tolerating a.m. medications and diet. Agreeable to corticosteroids and IV heparin at this time. Denies chest discomfort. Previously reported bandlike tightness has nearly resolved. No orthopnea or PND. Short 5 beat padmini of PSVT noted on telemetry overnight. Otherwise, heart rates have improved with addition of verapamil. Review of Systems Review of Systems: All systems reviewed & are unremarkable except as noted in HPI & below Physical Exam Physical Exam: General: NAD, AAO x3, well nourished. Chronically ill. HEENT: Normocephalic. Atraumatic. Conjunctiva pink, no scleral icterus. Neck: No carotid bruits, the carotid upstrokes are brisk. No JVD. No HJR Heart: Regular, borderline tachycardic, normal S-1 and S-2 no S-3 or S-4 gallop. No murmurs or rub appreciated. PMI is not displaced. No RV heave. Lungs: Diminished breath sounds bilateral. No rhonchi or wheeze. There are scant crackles at the left base. Abdomen: Normal bowel sounds. Soft. Nontender. No masses or organomegaly. No abdominal bruits. Extremities: Trace pedal edema, pedal, ankle, and pretibial edema bilaterally. No clubbing or cyanosis. Pulses: radial=2/4, Dorsalis pedis =2/4, posterior tibial=2/4. Neuro: Cranial nerves grossly intact. No focal motor deficit. Results & Data Vital Signs (Past 12 Hours) Vital Signs Temp Pulse Pulse Resp BP BP Pulse Ox 12/05/18 11:12 36.5 C 78 21 146/64 H 92 12/05/18 07:07 78 18 90 12/05/18 06:52 36.5 C 77 24 127/77 87 L 12/05/18 02:45 36.4 C L 76 24 124/75 89 L 12/05/18 00:09 85 (1) DVT (deep venous thrombosis) Affected thrombotic vein of extremity: tibial Chronicity: acute DVT location: lower extremity Laterality: left Qualified Code(s): I82.442 - Acute embolism and thrombosis of left tibial vein (2) Acute and chronic respiratory failure Respiratory failure complication: hypoxia Qualified Code(s): J96.21 - Acute and chronic respiratory failure with hypoxia
[2018-12-05] MEDS: Heparin Adult STANDARD Wt-Based Dextrose 5% 25,000 units/500 mL IV SCH (12:18)
[2018-12-05] MEDS ORDERED: POTASSIUM CHLORIDE 20 MEQ TABCR PO STA (12:22)
--- NOTE | 2018-12-05 12:55 | Hospitalist Progress Note ---
Date of Service December 05, 2018 Assessment & Plan (1) Acute and chronic respiratory failure: Patient admitted with acute on chronic respiratory failure which is multifactorial including noncompliance with medications, volume overload, possible exacerbation of COPD with underlying interstitial lung disease. On 6 L oxygen (During last admission, she was on 5 - 6 L oxygen) Volume status improved -S/P IV Lasix ---> Transitioned to PO lasix 40 mg daily (Home dose: 20 mg daily) -Pulmonary consulted- Recommended continuing with steroids, nebs QID -Wean as tolerated (2) DVT (deep venous thrombosis): Left posterior tibial deep venous thrombosis noted on lower ext USG CTA of chest negative for PE -IV heparin was ordered on 12/02/2018 by cardiology --> Pt refused to start anticoagulation saying its " rat poison " , her friends had lots of side effects from blood thinner and thinks her blood already "thin enough" . Thromboembolic risk was discussed. -Finally she was agreeable to allow to start on IV heparin. Now agreeable to NOACs but doesnt want coumadin. Discussed about risk of bleeding/no antidote available, benefits of newer anticoagulant agents. Agreeable to Xarelto or Eliquis. Prefer Xarelto due to daily dosing.Discussed the same with son Over phone. Agreeable with plan. (3) Acute on chronic diastolic (congestive) heart failure: Volume status markedly improved with IV diuretic therapy. Transitioned to PO lasix 40 mg daily (home dose 20 mg daily) Started on low-dose verapamil by cardiology to improve heart rate, tolerating it well. Patient is not a candidate for beta-eze due to underlying pulmonary disease Echo shows EF more than 70%, RV volume overload, moderately dilated RV, moderately reduced right ventricular systolic function, mild TR -Appreciate cardiology inputs. (4) Medical non-compliance: Has been a chronic issue , causing repeated hospital admissions in past Believes in self healing so on and off refusing her medications. Will not allow physician to adjust medications, addition of meds Challenging to convince her the benefit of treatment. Unfortunately, she will have repeated hospitalizations for the same reason Patient has her own way of thinking and would not listen to healthcare professionals More receptive after my discussion with son who spoke to her. Agreeable to be compliant with medications. (5) Noncompliance: (6) Patient is Episcopalian: (7) Pulmonary nodule, right: CTA chest : Slight increase in size of a 1.7 x 1.2 cm right lower lobe lobulated pulmonary nodule since CT of March 14, 2018. This is indeterminate and a neoplasm cannot be excluded. Pulmonary consultation is recommended. 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 Denies any chest pain, nausea, vomiting, fever, chills Short 5 beat padmini of PSVT noted on telemetry overnight. Physical Exam Physical Exam: GENERAL- AAOX3, No acute distress NECK- Supple, no JVD LUNGS-diminished breath sounds bilateral, no rhonchi or wheeze, scant crackles. HEART- Regular rate and rhythm. No murmurs ABDOMEN- Soft, non tender, non distended, Bowel sounds heard. EXTREMITIES-trace pedal edema. Results & Data Vital Signs (Past 12 Hours) Vital Signs Temp Pulse Resp BP BP Pulse Ox 12/05/18 11:12 36.5 C 78 21 146/64 H 92 12/05/18 07:07 78 18 90 12/05/18 06:52 36.5 C 77 24 127/77 87 L 12/05/18 02:45 36.4 C L 76 24 124/75 89 L (1) Acute and chronic respiratory failure Respiratory failure complication: hypoxia Qualified Code(s): J96.21 - Acute and chronic respiratory failure with hypoxia (2) DVT (deep venous thrombosis) DVT location: lower extremity Affected thrombotic vein of extremity: tibial Chronicity: acute Laterality: left Qualified Code(s): I82.442 - Acute embolism and thrombosis of left tibial vein
--- NOTE | 2018-12-05 13:57 | Progress Note ---
DATE: 12/05/2018 PULMONARY PROGRESS NOTE TIME: 1:15 p.m. SUBJECTIVE: The patient is feeling a little better. She feels that she is somewhat less short of breath. Unfortunately, her oxygen demands are still quite high as she is on a 7-liter OxyMask. She continues to complain of dryness in her nose. She admits to picking her nose. She does have a nasal septal perforation. She is requesting a moisturizing gel for her nose. She was changed from methylprednisolone to prednisone today. OBJECTIVE: GENERAL: The patient is comfortable at rest. Weight is 75.7 kilograms. This reflects a 4 kilogram weight loss compared with admission. HEENT: Nasal exam again shows blood predominantly on the left nostril and she has a nasal septal perforation. No lymph nodes were palpable in the neck. VITAL SIGNS: Heart rate 78 per minute. Rhythm regular. Blood pressure 146/64. LUNGS: Lung shah revealed mild rales at both bases. Otherwise, lung shah clear. Better aeration heard. As noted, saturation only 92% on 7-liter OxyMask. EXTREMITIES: Showed no cyanosis, clubbing or edema. LABORATORY DATA: White count is 6.37. Prior white count yesterday 14.74. On admission, it was 16.41. Hemoglobin is 12.7. This is down somewhat from 12/03/2018 when it was 14.2. PTT this morning 62.1. Electrolytes show sodium 135, potassium 3.3, chloride 102, bicarbonate 27. Echocardiogram done yesterday shows right ventricular pressure/volume overload. The right ventricle was moderately dilated. Right ventricular systolic function is reduced. Estimated systolic pulmonary arterial pressure is 60. IMPRESSION: 1. Respiratory failure, acute on chronic with hypoxia. 2. Emphysema. 3. Right lower lobe nodule measuring 1.7 cm. 4. Deep venous thrombosis of the left posterior tibial vein. 5. Diastolic congestive heart failure. 6. T12-L1 compression fracture. COMMENTS AND RECOMMENDATIONS: Would continue with the treatments every 8 hours as she is getting in the form of levalbuterol and ipratropium. Would continue with prednisone 40 mg daily. Her Lasix is 40 mg IV b.i.d. I believe that appears to be on hold at present. It appears she is now on oral Lasix. She does need some potassium supplementation. Would advise a trial of nasal gel such as [place]. It is unclear if that is available in our pharmacy, but the patient is requesting some nasal gel. Otherwise, would continue same. Thus far, we have been unsuccessful in decreasing the amount of oxygen the patient needs. Would continue as present.
[2018-12-05] MEDS ORDERED: RIVAROXABAN 20 MG TAB PO SCH (15:00)
[2018-12-05] MEDS: FUROSEMIDE 40 MG TAB PO SCH (16:03)
[2018-12-05] MEDS ORDERED: ICY HOT EXT PRN (22:30)
[2018-12-05] MEDS: ACETAMINOPHEN 325 MG TAB PO PRN (23:45)
[2018-12-06] MEDS: ICY HOT EXT PRN ×2 (00:49→22:59)
[2018-12-06] MEDS: LEVOTHYROXINE SODIUM 50 MCG TABLET PO SCH (06:24)
[2018-12-06] MEDS: LEVALBUTEROL 1.25MG/0.5ML NEB INH SCH ×3 (07:27→18:53)
[2018-12-06] MEDS: IPRATROPIUM BROMIDE NEB SOLN 0.02% 2.5 ML VIAL INH SCH ×2 (07:27→18:53)
[2018-12-06 07:43] LABS: Partial Thromboplastin Ratio 1.1; Partial Thromboplastin Time 29.6 Seconds (21.0-31.0)
[2018-12-06 08:05] LABS: BUN Creatinine Ratio 40.2 (10-20); Calcium 9.4 mg/dl (8.5-10.1); Creatinine Clr Calc Pharmacy 73.9 ml/min; Est GFR (African American) 103.1; Magnesium 2.1 mg/dl (1.8-2.4); Potassium 3.9 mmol/L (3.5-5.1)
[2018-12-06] MEDS: FUROSEMIDE 40 MG TAB PO SCH (09:11)
[2018-12-06] MEDS: CHOLECALCIFEROL 1,000 UNITS TAB PO SCH (09:11)
[2018-12-06] MEDS: VERAPAMIL HCL 40 MG TAB PO SCH ×3 (09:11→20:04)
[2018-12-06] MEDS: predniSONE 20 MG TAB PO SCH (09:11)
[2018-12-06] MEDS: CLOTRIMAZOLE 10 MG TROCHE BUCCAL SCH ×5 (09:12→22:59)
[2018-12-06] MEDS: RIVAROXABAN 15 MG TAB PO SCH ×2 (09:12→20:05)
[2018-12-06] MEDS: FLUTICASONE/SALMETEROL (ADVAIR) 500/50 INH 14 PUFF INH SCH ×2 (09:12→20:05)
[2018-12-06] MEDS: VITAMIN B COMPLEX TAB PO SCH (09:12)
--- NOTE | 2018-12-06 09:33 | Cardiology Progress Note ---
Date of Service December 06, 2018 Assessment & Plan (1) Acute and chronic respiratory failure: Patient admitted with acute on chronic respiratory failure which is multifactorial including noncompliance with medications, mild volume overload, exacerbation of COPD with underlying interstitial lung disease. Appreciate pulmonary medicine input. Continue oral corticosteroids and nebulizer treatments. Wean supplemental oxygen as tolerated. (2) Chronic systolic dysfunction of right ventricle: Repeat echogram demonstrates right ventricular dilatation and systolic dysfunction. Overall RV function not significantly changed compared to prior echocardiogram, however, estimated systolic pulmonary arterial pressures have increased with septal flattening suggesting RV pressure/volume overload. Continue oral Lasix daily. Treatment of underlying pulmonary process/emphysema/COPD as per pulmonary medicine. (3) DVT (deep venous thrombosis): Left posterior tibial deep venous thrombosis noted. Patient transition to oral Xarelto. Continue 15 mg twice daily for 21 days followed by 20 mg daily for minimum of 3 months. (4) Medical non-compliance: (5) Noncompliance: Subjective Patient seen and examined at the bedside. Clinically improving. Oxygen requirement remains high. Currently maintaining SaO2 91% on 6 L nasal cannula. Reports cough and congestion today. No sputum production. Denies fevers or chills. Remains in sinus rhythm on telemetry with 1 8 beat padmini of paroxysmal supra ventricular tachycardia overnight. Denies palpitations. No orthopnea or paroxysmal nocturnal dyspnea. Trace pedal edema noted. Oral Lasix restarted. No signs/symptoms of GI/ blood loss. Intravenous heparin discontinued and oral Xarelto initiated. Offers no other concerns/complaints at this time. Review of Systems Review of Systems: All systems reviewed & are unremarkable except as noted in HPI & below Physical Exam Physical Exam: General: NAD, AAO x3, well nourished. Chronically ill. HEENT: Normocephalic. Atraumatic. Conjunctiva pink, no scleral icterus. Neck: No carotid bruits, the carotid upstrokes are brisk. No JVD. No HJR Heart: Regular rhythm, normal S-1 and S-2 no S-3 or S-4 gallop. No murmurs or rub appreciated. PMI is not displaced. No RV heave. Lungs: Diminished breath sounds bilateral. No rhonchi or wheeze. Scant crackles at the left base. Abdomen: Normal bowel sounds. Soft. Nontender. No masses or organomegaly. No abdominal bruits. Extremities: Trace pedal edema, pedal, ankle, and pretibial edema bilaterally. No clubbing or cyanosis. Pulses: radial=2/4, Dorsalis pedis =2/4, posterior tibial=2/4. Neuro: Cranial nerves grossly intact. No focal motor deficit. Results & Data Vital Signs (Past 12 Hours) Vital Signs Temp Pulse Pulse Resp BP Pulse Ox 12/06/18 07:40 36.3 C L 82 22 139/77 91 12/06/18 07:29 76 16 93 12/06/18 00:00 76 12/05/18 23:44 81 16 94 12/05/18 23:01 36.5 C 80 18 136/76 92 Laboratory Results Laboratory Results - last 24 hr 12/06/18 12/06/18 07:15 07:15 APTT 29.6 PTT Ratio 1.1 Sodium 137 Potassium 3.9 D Chloride 104 Carbon Dioxide 27 Anion Gap 6.0 BUN 25 H Creatinine 0.63 Est Cr Clr Drug Dosing 73.9 Est GFR ( Amer) 103.1 Est GFR (Non-Af Amer) 89.0 BUN/Creatinine Ratio 40.2 H Glucose 98 Calcium 9.4 Magnesium 2.1 (1) DVT (deep venous thrombosis) Affected thrombotic vein of extremity: tibial Chronicity: acute DVT location: lower extremity Laterality: left Qualified Code(s): I82.442 - Acute embolism and thrombosis of left tibial vein (2) Acute and chronic respiratory failure Respiratory failure complication: hypoxia Qualified Code(s): J96.21 - Acute and chronic respiratory failure with hypoxia
--- NOTE | 2018-12-06 14:08 | Hospitalist Progress Note ---
Date of Service December 06, 2018 Assessment & Plan (1) Acute and chronic respiratory failure: Patient admitted with acute on chronic respiratory failure which is multifactorial including noncompliance with medications, volume overload, possible exacerbation of COPD with underlying interstitial lung disease. On 6-7 L oxygen (During last admission, she was on 5 - 6 L oxygen) Volume status improved -S/P IV Lasix ---> Transitioned to PO lasix 40 mg daily on 12/04/18 (Home dose: 20 mg daily) -Pulmonary consulted- Recommended continuing with steroids, nebs QID to see if it helps reducing the oxygen need -Wean as tolerated (2) DVT (deep venous thrombosis): Left posterior tibial deep venous thrombosis noted on lower ext USG CTA of chest negative for PE -IV heparin was ordered on 12/02/2018 by cardiology --> Pt refused to start anticoagulation saying its " rat poison " , her friends had lots of side effects from blood thinner and thinks her blood already "thin enough" . Thromboembolic risk was discussed. -Finally she was agreeable to allow to start on IV heparin. Now agreeable to NOACs but doesnt want coumadin. Discussed about risk of bleeding/no antidote available, benefits of newer anticoagulant agents. Agreeable to Xarelto or Eliquis. Prefer Xarelto due to daily dosing. Discussed the same with son Over phone. Agreeable with plan. -Co pay around $2 (3) Acute on chronic diastolic (congestive) heart failure: Volume status markedly improved with IV diuretic therapy. Transitioned to PO lasix 40 mg daily (home dose 20 mg daily) on 12/04/18 Started on low-dose verapamil by cardiology during this admission to improve heart rate, tolerating it well. Patient is not a candidate for beta-eze due to underlying pulmonary disease Echo shows EF more than 70%, RV volume overload, moderately dilated RV, moderately reduced right ventricular systolic function, mild TR -Appreciate cardiology inputs. (4) Medical non-compliance: Has been a chronic issue , causing repeated hospital admissions in past Believes in self healing so on and off refusing her medications. Will not allow physician to adjust medications, addition of meds Challenging to convince her the benefit of treatment. Unfortunately, she will have repeated hospitalizations for the same reason Patient has her own way of thinking and would not listen to healthcare professionals More receptive after my discussion with son who spoke to her on 12/05/18. Agreeable to be compliant with medications. (5) Noncompliance: (6) Patient is Worship: (7) Pulmonary nodule, right: CTA chest : Slight increase in size of a 1.7 x 1.2 cm right lower lobe lobulated pulmonary nodule since CT of March 14, 2018. This is indeterminate and a neoplasm cannot be excluded. Pulmonary consultation is recommended. 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 Reports cough and congestion today. No sputum production. Denies fevers or chills. Denies palpitations, orthopnea, nocturnal dyspnea. 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 HEART- Regular rate and rhythm. No murmurs ABDOMEN- Soft, non tender, non distended, Bowel sounds heard. EXTREMITIES-trace pedal edema. Results & Data Vital Signs (Past 12 Hours) Vital Signs Temp Pulse Resp BP Pulse Ox 12/06/18 12:21 36.3 C L 80 18 131/80 90 12/06/18 07:40 36.3 C L 82 22 139/77 91 12/06/18 07:29 76 16 93 (1) Acute and chronic respiratory failure Respiratory failure complication: hypoxia Qualified Code(s): J96.21 - Acute and chronic respiratory failure with hypoxia (2) DVT (deep venous thrombosis) DVT location: lower extremity Affected thrombotic vein of extremity: tibial Chronicity: acute Laterality: left Qualified Code(s): I82.442 - Acute embolism and thrombosis of left tibial vein
[2018-12-06] MEDS ORDERED: IPRATROPIUM BROMIDE NEB SOLN 0.02% 2.5 ML VIAL INH SCH (16:00)
--- NOTE | 2018-12-06 16:10 | Progress Note ---
DATE: 12/06/2018 PULMONARY PROGRESS NOTE TIME: 3:15 p.m. SUBJECTIVE: The patient feels about the same. She is still very short of breath, just getting up to go to the commode. Saturations continued to remain marginal despite being on oxygen, had moderate quantities. She is not having chest pain. Denies significant cough. OBJECTIVE: GENERAL: The patient appeared comfortable at rest. VITAL SIGNS: Temperature 36.3. Heart rate 80 per minute. Rhythm regular. Blood pressure 131/80. Respiratory rate 20 breaths per minute. Saturation 93% on 6-liter OxyMask. LUNGS: Auscultation revealed mild rales at the bases. Breath sounds are mildly diminished, but not terribly diminished. The degree of her shunting is more than expected considering her exam. LABORATORY DATA: Electrolytes show sodium 137, potassium 3.9, chloride 104, bicarb 27. BUN 25 with creatinine 0.63. IMPRESSION: 1. Respiratory failure - acute on chronic with hypoxia. 2. Emphysema. 3. Right lower lobe nodule 1.7 cm. 4. Deep venous thrombosis, left posterior tibial vein. 5. Diastolic congestive heart failure. 6. Compression fracture T12-L1. COMMENTS AND RECOMMENDATIONS: The patient is perhaps slightly better. I believe yesterday, she was on 7 liters. She is down to 6 liters and will try her on 5 liters. She is now on rivaroxaban. She does feel that her treatments helped her. We will give her neb treatments a trial at q. 6 hours.
[2018-12-06] MEDS: ACETAMINOPHEN 325 MG TAB PO PRN (23:11)
[2018-12-07] MEDS: IPRATROPIUM BROMIDE NEB SOLN 0.02% 2.5 ML VIAL INH SCH ×4 (01:48→18:49)
[2018-12-07] MEDS: LEVALBUTEROL 1.25MG/0.5ML NEB INH SCH ×4 (01:48→18:49)
[2018-12-07] MEDS: LEVOTHYROXINE SODIUM 50 MCG TABLET PO SCH (06:24)
[2018-12-07 06:54] LABS: Partial Thromboplastin Ratio 1.1; Partial Thromboplastin Time 29.1 Seconds (21.0-31.0)
[2018-12-07] MEDS: predniSONE 20 MG TAB PO SCH (09:39)
[2018-12-07] MEDS: CHOLECALCIFEROL 1,000 UNITS TAB PO SCH (09:40)
[2018-12-07] MEDS: VERAPAMIL HCL 40 MG TAB PO SCH ×3 (09:40→20:21)
[2018-12-07] MEDS: VITAMIN B COMPLEX TAB PO SCH (09:40)
[2018-12-07] MEDS: RIVAROXABAN 15 MG TAB PO SCH ×2 (09:40→20:20)
[2018-12-07] MEDS: CLOTRIMAZOLE 10 MG TROCHE BUCCAL SCH ×4 (09:40→20:20)
[2018-12-07] MEDS: FUROSEMIDE 40 MG TAB PO SCH (09:40)
[2018-12-07] MEDS: FLUTICASONE/SALMETEROL (ADVAIR) 500/50 INH 14 PUFF INH SCH ×2 (09:41→20:20)
--- NOTE | 2018-12-07 11:18 | Hospitalist Progress Note ---
Date of Service December 07, 2018 Assessment & Plan (1) Acute and chronic respiratory failure: Chronic hypoxic respiratory failure on home O2. Presented with worsening hypoxia and SOB. Worsening hypoxia probably secondary to combination of COPD and CHF as discussed below. Continue supplemental O2. (2) COPD exacerbation: No apparent infection. Continue prednisone and bronchodilators. (3) Chronic systolic dysfunction of right ventricle: Echo 12/04/18 showed normal LV systolic function, dilated RV, reduced RVEF, pulmonary hypertension. Continue diuretics. Continue management of underlying pulmonary disease. (4) Lung mass: CTA chest demonstrated 1.7 x 1.2 mass RLL. Follow-up per Pulmonary (although patient reluctant to undergo further evaluation). (5) HTN (hypertension): Continue verapamil. (6) DVT (deep venous thrombosis): (present on admission) Venous duplex of lower extremities demonstrated DVT in the left posterior tibial vein as well as thromboses in bilateral greater saphenous veins. Started on rivaroxaban; duration of treatment to be determined. (7) Discharge planning issues: Anticipated discharge to home. Family Medicine follow-up with Dr. Carr. Subjective Recheck for multiple problems. Patient seen in their room around 1100. Feels somewhat better, but still dyspneic with minimal exertion. Occasional nonproductive cough. Review of Systems: Constitutional- no fever. Cardiac- no chest pain. Pulmonary- as noted above. GI- no nausea, vomiting, diarrhea, melena, hematochezia. - no urinary symptoms. Otherwise, as noted above. Physical Exam Constitutional: no acute distress Respiratory: no respiratory distress Auscultation: + wheezes (diffuse) Cardiovascular: Rate/Rhythm: regular rate and regular rhythm Heart Sounds: + murmur (I/ sys murmur LSB); no gallop and no cardiac rub Vessels: no JVD Extremities: + edema (trace pretibial); no calf tenderness Gastrointestinal (Abdomen): normal bowel sounds, soft, nontender, no hepatosplenomegaly Skin: no rashes, warm and dry Psychiatric: Orientation: alert and oriented x 3 Results & Data Vital Signs (Past 12 Hours) Vital Signs Temp Pulse Pulse Resp BP Pulse Ox 12/07/18 08:08 36.7 C 80 20 149/86 H 94 12/07/18 06:58 78 18 92 12/07/18 03:28 36.5 C 85 20 150/92 H 93 12/07/18 01:49 77 20 92 12/07/18 00:00 85 Laboratory Results Laboratory Results - last 24 hr 12/07/18 06:21 APTT 29.1 PTT Ratio 1.1 (1) Acute and chronic respiratory failure Respiratory failure complication: hypoxia Qualified Code(s): J96.21 - Acute and chronic respiratory failure with hypoxia (2) DVT (deep venous thrombosis) DVT location: lower extremity Affected thrombotic vein of extremity: tibial Chronicity: acute Laterality: left Qualified Code(s): I82.442 - Acute embolism and thrombosis of left tibial vein
--- NOTE | 2018-12-07 13:24 | Progress Note ---
DATE: 12/07/2018 PULMONARY PROGRESS NOTE TIME: 10:50 a.m. SUBJECTIVE: The patient is feeling a little better. She is now on nasal cannula at 5 liters and keeping saturations in the 90s. She feels slightly better. She has been using some gel in her nose for the area of bleeding and the septal perforation. She has had no major problem since yesterday. OBJECTIVE: GENERAL: The patient appeared comfortable. She was not short of breath. VITAL SIGNS: Temperature is 36.7. Heart rate is 80 per minute. Rhythm regular. Blood pressure 149/86. LUNGS: Lung shah revealed mild wheeze posteriorly on the right today. Breath sounds are diminished. Saturation on 5 liters was 91%. This would be via nasal cannula. EXTREMITIES: Showed no edema. IMPRESSION: 1. Respiratory failure - acute on chronic with hypoxia. 2. Emphysema. 3. Right lower lobe nodule 1.7 cm. 4. Deep venous thrombosis, left posterior tibial vein. 5. Diastolic congestive heart failure. COMMENTS: The patient finally has shown some improvement in her oxygenation status. She is modestly improved. We probably should try and ambulate her more. The prednisone can be tapered over the course of 10-14 days as an outpatient. She is concerned about going home at present because she states her son who lives with her currently is having vomiting and she does not want to pick anything up. This is deferred to the hospitalist team. I will see her again if specifically requested. Ideally, we would suggest a CAT scan in 6 months, but she has been very resistant to doing so.
--- NOTE | 2018-12-07 16:08 | Cardiology Progress Note ---
Date of Service December 07, 2018 Assessment & Plan (1) Acute and chronic respiratory failure: Patient admitted with acute on chronic respiratory failure which is multifactorial including noncompliance with medications, mild volume overload, exacerbation of COPD with underlying interstitial lung disease. Appreciate pulmonary medicine input. Continue oral corticosteroids and nebulizer treatments. Wean supplemental oxygen as tolerated. (2) Chronic systolic dysfunction of right ventricle: Continue oral Lasix 40mg daily. Treatment of underlying pulmonary process/emphysema/COPD as per pulmonary medicine. (3) DVT (deep venous thrombosis): Left posterior tibial deep venous thrombosis noted. Patient transition to oral Xarelto. Continue 15 mg twice daily for 21 days followed by 20 mg daily for minimum of 3 months. (4) Medical non-compliance: (5) Noncompliance: Subjective Patient seen and examined at the bedside. Feeling better today. Oxygen req uirements have reduced. Currently using 5 L nasal cannula. Denies chest pain. Right-sided rib pain improved. No abdominal discomfort, nausea, vomiting. Tolerating medications. Offers no concerns/complaints at this time. Review of Systems Review of Systems: All systems reviewed & are unremarkable except as noted in HPI & below Physical Exam Physical Exam: General: NAD, AAO x3, well nourished. Chronically ill. HEENT: Normocephalic. Atraumatic. Conjunctiva pink, no scleral icterus. Neck: No carotid bruits, the carotid upstrokes are brisk. No JVD. No HJR Heart: Regular rhythm, normal S-1 and S-2 no S-3 or S-4 gallop. No murmurs or rub appreciated. PMI is not displaced. No RV heave. Lungs: Diminished breath sounds bilateral. No rhonchi or wheeze. Scant crackles at the left base. Abdomen: Normal bowel sounds. Soft. Nontender. No masses or organomegaly. No abdominal bruits. Extremities: Trace pedal edema, pedal, ankle, and pretibial edema bilaterally. No clubbing or cyanosis. Pulses: radial=2/4, Dorsalis pedis =2/4, posterior tibial=2/4. Neuro: Cranial nerves grossly intact. No focal motor deficit. Results & Data Vital Signs (Past 12 Hours) Vital Signs Temp Pulse Resp BP Pulse Ox 12/07/18 15:24 36.4 C L 78 18 135/76 92 12/07/18 14:04 83 18 93 12/07/18 12:05 36.9 C 77 20 142/76 H 94 12/07/18 08:08 36.7 C 80 20 149/86 H 94 12/07/18 06:58 78 18 92 (1) DVT (deep venous thrombosis) Affected thrombotic vein of extremity: tibial Chronicity: acute DVT location: lower extremity Laterality: left Qualified Code(s): I82.442 - Acute embolism and thrombosis of left tibial vein (2) Acute and chronic respiratory failure Respiratory failure complication: hypoxia Qualified Code(s): J96.21 - Acute and chronic respiratory failure with hypoxia
[2018-12-08] MEDS: CLOTRIMAZOLE 10 MG TROCHE BUCCAL SCH ×6 (00:05→22:40)
[2018-12-08] MEDS: ACETAMINOPHEN 325 MG TAB PO PRN ×3 (00:11→22:45)
[2018-12-08] MEDS: ICY HOT EXT PRN (00:12)
[2018-12-08] MEDS: LEVALBUTEROL 1.25MG/0.5ML NEB INH SCH ×4 (01:44→18:19)
[2018-12-08] MEDS: IPRATROPIUM BROMIDE NEB SOLN 0.02% 2.5 ML VIAL INH SCH ×4 (01:44→18:18)
[2018-12-08] MEDS: LEVOTHYROXINE SODIUM 50 MCG TABLET PO SCH (05:52)
[2018-12-08 06:05] LABS: BUN Creatinine Ratio 42.3 (10-20); Calcium 8.7 mg/dl (8.5-10.1); Creatinine Clr Calc Pharmacy 83.2 ml/min; Est GFR (African American) 107.2; Est GFR (Non-African American) 92.5; Potassium 3.9 mmol/L (3.5-5.1)
[2018-12-08] MEDS: VERAPAMIL HCL 40 MG TAB PO SCH ×3 (07:44→19:57)
[2018-12-08] MEDS: CHOLECALCIFEROL 1,000 UNITS TAB PO SCH (07:44)
[2018-12-08] MEDS: predniSONE 20 MG TAB PO SCH (07:44)
[2018-12-08] MEDS: RIVAROXABAN 15 MG TAB PO SCH ×2 (07:44→19:58)
[2018-12-08] MEDS: FLUTICASONE/SALMETEROL (ADVAIR) 500/50 INH 14 PUFF INH SCH ×2 (07:45→19:57)
[2018-12-08] MEDS: VITAMIN B COMPLEX TAB PO SCH (07:45)
[2018-12-08] MEDS: FUROSEMIDE 40 MG TAB PO SCH (07:45)
--- NOTE | 2018-12-08 11:16 | Cardiology Progress Note ---
Date of Service December 08, 2018 Assessment & Plan (1) Acute and chronic respiratory failure: Patient admitted with acute on chronic respiratory failure which is multifactorial including noncompliance with medications, mild volume overload, exacerbation of COPD with underlying interstitial lung disease. Appreciate pulmonary medicine input. Continue oral corticosteroids and nebulizer treatments. Wean supplemental oxygen as tolerated. Patient is deconditioned. Recommend PT/OT evalution. (2) Chronic systolic dysfunction of right ventricle: Continue oral Lasix 40mg daily. Treatment of underlying pulmonary process/emphysema/COPD as per pulmonary medicine. (3) DVT (deep venous thrombosis): Left posterior tibial deep venous thrombosis noted. Patient transition to oral Xarelto. Continue 15 mg twice daily for 21 days followed by 20 mg daily for minimum of 3 months. (4) Medical non-compliance: (5) Noncompliance: Subjective Patient seen and examined at the bedside. Feeling better today. Oxygen requirements is stable at 5L. Denies chest pain. Right-sided rib pain improved. No abdominal discomfort, nausea, vomiting. Tolerating medications. Voices concern regarding poor stamina. Review of Systems Review of Systems: All systems reviewed & are unremarkable except as noted in HPI & below Physical Exam Physical Exam: General: NAD, AAO x3, well nourished. Chronically ill. HEENT: Normocephalic. Atraumatic. Conjunctiva pink, no scleral icterus. Neck: No carotid bruits, the carotid upstrokes are brisk. No JVD. No HJR Heart: Regular rhythm, normal S-1 and S-2 no S-3 or S-4 gallop. No murmurs or rub appreciated. PMI is not displaced. No RV heave. Lungs: Diminished breath sounds bilateral. No rhonchi or wheeze. Scant crackles at the left base. Abdomen: Normal bowel s ounds. Soft. Nontender. No masses or organomegaly. No abdominal bruits. Extremities: Trace pedal edema, pedal, ankle, and pretibial edema bilaterally. No clubbing or cyanosis. Pulses: radial=2/4, Dorsalis pedis =2/4, posterior tibial=2/4. Neuro: Cranial nerves grossly intact. No focal motor deficit. Results & Data Vital Signs (Past 12 Hours) Vital Signs Temp Pulse Pulse Resp BP Pulse Ox 12/08/18 08:00 36.9 C 89 18 143/72 H 96 05/12/19 06:59 71 18 91 12/08/18 04:01 36.5 C 84 22 148/81 H 90 12/08/18 01:44 84 18 93 12/08/18 00:00 90 12/07/18 23:51 36.9 C 81 19 147/80 H 95 Laboratory Results Laboratory Results - last 24 hr 12/08/18 05:31 Sodium 137 Potassium 3.9 Chloride 104 Carbon Dioxide 28 Anion Gap 5.0 BUN 24 H Creatinine 0.56 L Est Cr Clr Drug Dosing 83.2 Est GFR ( Amer) 107.2 Est GFR (Non-Af Amer) 92.5 BUN/Creatinine Ratio 42.3 H Glucose 93 Calcium 8.7 (1) DVT (deep venous thrombosis) Affected thrombotic vein of extremity: tibial Chronicity: acute DVT locat ion: lower extremity Laterality: left Qualified Code(s): I82.442 - Acute emb olism and thrombosis of left tibial vein (2) Acute and chronic respiratory failure Respiratory failure complication: hypoxia Qualified Code(s): J96.21 - Acute and chronic respiratory failure with hypoxia
--- NOTE | 2018-12-08 12:33 | Hospitalist Progress Note ---
Date of Service December 08, 2018 Assessment & Plan (1) Acute and chronic respiratory failure: Chronic hypoxic respiratory failure on home O2. Presented with worsening hypoxia and SOB. Worsening hypoxia probably secondary to combination of COPD and CHF as discussed below. Continue supplemental O2. (2) COPD exacerbation: No apparent infection. Continue prednisone and bronchodilators. (3) Chronic systolic dysfunction of right ventricle: Echo 12/04/18 showed normal LV systolic function, dilated RV, reduced RVEF, pulmonary hypertension. Continue diuretics. Check f/u BMP. Continue management of underlying pulmonary disease. (4) Lung mass: CTA chest demonstrated 1.7 x 1.2 mass RLL. Follow-up per Pulmonary (although patient reluctant to undergo further eval uation). (5) HTN (hypertension): Continue verapamil. (6) DVT (deep venous thrombosis): (present on admission) Venous duplex of lower extremities demonstrated DVT in the left posterior tibial vein as well as thromboses in bilateral greater saphenous veins. Started on rivaroxaban; duration of treatment to be determined (at least 3 months). (7) Discharge planning issues: Poor functional status due to underlying cardiopulmonary disease. Reasonable to consider skilled care or inpt rehab, but patient prefers DC to home. Her son is applying for waiver program so that he can provide assistance at home. Will coordinate discharge planning with Case Management. Family Medicine follow-up with Dr. Carr. Subjective Recheck for multiple problems. Patient seen in their room around 0940. SOB with minimal exertion. Occasional nonproductive cough. Review of Systems: Constitutional- no fever. Cardiac- no chest pain. Pulmonary- as noted above. GI- no nausea, vomiting, diarrhea, melena, hematochezia. - no urinary symptoms. Otherwise, as noted above. Physical Exam Constitutional: no acute distress Respiratory: no respiratory distress Auscultation: + wheezes (diffuse) Cardiovascular: Rate/Rhythm: regular rate and regular rhythm Heart Sounds: + murmur (I/ sys murmur LSB); no gallop and no cardiac rub Vessels: no JVD Extremities: + edema (trace pretibial); no calf tenderness Gastrointestinal (Abdomen): normal bowel sounds, soft, nontender, no hepatosp lenomegaly Skin: no rashes, warm and dry Psychiatric: Orientation: alert and oriented x 3 Results & Data Vital Signs (Past 12 Hours) Vital Signs Temp Pulse Resp BP Pulse Ox 12/08/18 12:11 36.8 C 22 160/73 H 98 12/08/18 08:00 36.9 C 89 18 143/72 H 96 12/08/18 06:59 71 18 91 12/08/18 04:01 36.5 C 84 22 148/81 H 90 12/08/18 01:44 84 18 93 Laboratory Results Laboratory Results - last 24 hr 12/08/18 05:31 Sodium 137 Potassium 3.9 Chloride 104 Carbon Dioxide 28 Anion Gap 5.0 BUN 24 H Creatinine 0.56 L Est Cr Clr Drug Dosing 83.2 Est GFR ( Amer) 107.2 Est GFR (Non-Af Amer) 92.5 BUN/Creatinine Ratio 42.3 H Glucose 93 Calcium 8.7 (1) Acute and chronic respiratory failure Respiratory failure complication: hypoxia Qualified Code(s): J96.21 - Acute and chronic respiratory failure with hypoxia (2) DVT (deep venous thrombosis) DVT location: lower extremity Affected thrombotic vein of extremity: tibial Chronicity: acute Laterality: left Qualified Code(s): I82.442 - Acute embolism and thrombosis of left tibial vein
[2018-12-09] MEDS: IPRATROPIUM BROMIDE NEB SOLN 0.02% 2.5 ML VIAL INH SCH ×4 (01:53→19:07)
[2018-12-09] MEDS: LEVALBUTEROL 1.25MG/0.5ML NEB INH SCH ×4 (01:53→19:07)
[2018-12-09] MEDS: LEVOTHYROXINE SODIUM 50 MCG TABLET PO SCH (06:08)
[2018-12-09 06:58] LABS: BUN Creatinine Ratio 40.3 (10-20); Calcium 8.9 mg/dl (8.5-10.1); Est GFR (African American) 103.1; Potassium 3.9 mmol/L (3.5-5.1)
[2018-12-09] MEDS: CLOTRIMAZOLE 10 MG TROCHE BUCCAL SCH ×5 (09:57→22:29)
[2018-12-09] MEDS: VERAPAMIL HCL 40 MG TAB PO SCH ×3 (09:58→20:36)
[2018-12-09] MEDS: FUROSEMIDE 40 MG TAB PO SCH (09:58)
[2018-12-09] MEDS: VITAMIN B COMPLEX TAB PO SCH (09:58)
[2018-12-09] MEDS: FLUTICASONE/SALMETEROL (ADVAIR) 500/50 INH 14 PUFF INH SCH ×2 (09:58→20:36)
[2018-12-09] MEDS: predniSONE 20 MG TAB PO SCH (09:59)
[2018-12-09] MEDS: CHOLECALCIFEROL 1,000 UNITS TAB PO SCH (09:59)
[2018-12-09] MEDS: RIVAROXABAN 15 MG TAB PO SCH ×2 (09:59→20:36)
[2018-12-09] MEDS: ACETAMINOPHEN 325 MG TAB PO PRN (11:10)
--- NOTE | 2018-12-09 13:18 | XRay Report ---
XR chest 2V routine CLINICAL HISTORY: COPD, CHF, resp failure COMPARISON STUDY: 12/01/2018 FINDINGS: Improved exam. Lungs are considered clear. Findings of chronic pulmonary arterial hypertens ion unaltered. IMPRESSION: Chronic change. No acute process. The above report was generated using voice recognition software. It may contain grammatical, syntax or spelling errors. Electronically signed by: Jr Heredia M.D. 12/09/2018 1:17 PM
--- NOTE | 2018-12-09 14:08 | Cardiology Progress Note ---
Date of Service December 09, 2018 Assessment & Plan (1) Acute and chronic respiratory failure: Patient admitted with acute on chronic respiratory failure which is multifactorial including noncompliance with medications, mild volume overload, exacerbation of COPD with underlying interstitial lung disease. Transition verapamil to long-acting formulation 120 mg daily at time of discharge. Continue oral corticosteroids and nebulizer treatments per pulmonary/IM. Wean supplemental oxygen as tolerated. (2) Chronic systolic dysfunction of right ventricle: Continue oral Lasix 40mg daily. Treatment of underlying pulmonary process/emphysema/COPD as per pulmonary medicine. (3) DVT (deep venous thrombosis): Left posterior tibial deep venous thrombosis noted. Patient transition to oral Xarelto. Continue 15 mg twice daily for 21 days followed by 20 mg daily for minimum of 3 months. (4) Noncompliance: Subjective Patient seen and examined at the bedside. Remains on 5 L nasal cannula. Heart rate controlled on telemetry. Denies chest pain or unusual shortness of breath. Cough unchanged. No sputum production. No orthopnea. Lower extremity edema controlled. Review of Systems Review of Systems: All systems reviewed & are unremarkable except as noted in HPI & below Physical Exam Physical Exam: General: NAD, AAO x3, well nourished. Chronically ill. HEENT: Normocephalic. Atraumatic. Conjunctiva pink, no scleral icterus. Neck: No carotid bruits, the carotid upstrokes are brisk. No JVD. No HJR Heart: Regular rhythm, normal S-1 and S-2 no S-3 or S-4 gallop. No murmurs or rub appreciated. PMI is not displaced. No RV heave. Lungs: Diminished breath sounds bilateral. No rhonchi or wheeze. Scant crackles at the left base. Abdomen: Normal bowel sounds. Soft. Nontender. No masses or organomegaly. No abdominal bruits. Extremities: Trace pedal edema, pedal, ankle, and pretibial edema bilaterally. No clubbing or cyanosis. Pulses: radial=2/4, Dorsalis pedis =2/4, posterior t ibial=2/4. Neuro: Cranial nerves grossly intact. No focal motor deficit. Results & Data Vital Signs (Past 12 Hours) Vital Signs Temp Pulse Resp BP BP Pulse Ox 12/09/18 11:24 36.3 C L 90 20 143/82 H 90 12/09/18 07:33 36.3 C L 77 20 133/72 90 12/09/18 06:59 68 16 94 12/09/18 03:47 36.9 C 76 19 134/75 93 Laboratory Results Laboratory Results - last 24 hr 12/09/18 06:19 Sodium 138 Potassium 3.9 Chloride 104 Carbon Dioxide 28 Anion Gap 6.0 BUN 25 H Creatinine 0.63 Est Cr Clr Drug Dosing 75.0 Est GFR ( Amer) 103.1 Est GFR (Non-Af Amer) 89.0 BUN/Creatinine Ratio 40.3 H Glucose 88 Calcium 8.9 (1) DVT (deep venous thrombosis) Affected thrombotic vein of extremity: tibial Chronicity: acute DVT location: lower extremity Laterality: left Qualified Code(s): I82.442 - Acute embolism and thrombosis of left tibial vein (2) Acute and chronic respiratory failure Respiratory failure complication: hypoxia Qualified Code(s): J96.21 - Acute and chronic respiratory failure with hypoxia
--- NOTE | 2018-12-09 19:31 | Hospitalist Progress Note ---
Date of Service December 09, 2018 Assessment & Plan (1) Acute and chronic respiratory failure: Chronic hypoxic respiratory failure on home O2. Presented with worsening hypoxia and SOB. Worsening hypoxia probably secondary to combination of COPD and CHF as discussed below. Continue supplemental O2. Check f/u chest x-ray. (2) COPD exacerbation: No apparent infection. Continue prednisone and bronchodilators. (3) Chronic systolic dysfunction of right ventricle: Echo 12/04/18 showed normal LV systolic function, dilated RV, reduced RVEF, pulmonary hypertension. Continue diuretics. Continue management of underlying pulmonary disease. (4) Lung mass: CTA chest demonstrated 1.7 x 1.2 mass RLL. Follow-up per Pulmonary (although patient reluctant to undergo further evaluation). (5) HTN (hypertension): Continue verapamil. (6) DVT (deep venous thrombosis): (present on admission) Venous duplex of lower extremities demonstrated DVT in the left posterior tibial vein as well as thromboses in bilateral greater saphenous veins. Started on rivaroxaban; duration of treatment to be determined (at least 3 months). (7) Discharge planning issues: Poor functional status due to underlying cardiopulmonary disease. Reasonable to consider skilled care or inpt rehab, but patient prefers DC to home. Her son is applying for waiver program so that he can provide assistance at home. Will coordinate discharge planning with Case Management. Family Medicine follow-up with Dr. Carr. Subjective Recheck for multiple problems. Patient seen in their room around 1040. Still SOB with minimal exertion. Congested cough. No fever. No chest pain. Lower extremity edema improved. Review of Systems: Constitutional- no fever. Cardiac- no chest pain. Pulmonary- as noted above. GI- no nausea, vomiting, diarrhea, melena, hematochezia. - no urinary symptoms. Otherwise, as noted above. Physical Exam Constitutional: no acute distress Respiratory: no respiratory distress Auscultation: + wheezes (diffuse) Cardiovascular: Rate/Rhythm: regular rate and regular rhythm Heart Sounds: + murmur (I/ sys murmur LSB); no gallop and no cardiac rub Vessels: no JVD Extremities: + edema (trace pretibial); no calf tenderness Gastrointestinal (Abdomen): normal bowel sounds, soft, nontender, no hepatosplenomegaly Skin: no rashes, warm and dry Psychiatric: Orientation: alert and oriented x 3 Results & Data Vital Signs (Past 12 Hours) Vital Signs Temp Pulse Resp BP BP Pulse Ox 12/09/18 19:09 81 16 97 12/09/18 15:43 87 L 12/09/18 15:28 36.8 C 86 18 119/72 90 12/09/18 14:21 82 132/81 12/09/18 14:16 100 H 20 88 L 12/09/18 11:24 36.3 C L 90 20 143/82 H 90 12/09/18 07:33 36.3 C L 77 20 133/72 90 (1) Acute and chronic respiratory failure Respiratory failure complication: hypoxia Qualified Code(s): J96.21 - Acute and chronic respiratory failure with hypoxia (2) DVT (deep venous thrombosis) DVT location: lower extremity Affected thrombotic vein of extremity: tibial Chronicity: acute Laterality: left Qualified Code(s): I82.442 - Acute embolism and thrombosis of left tibial vein
[2018-12-10] MEDS: ACETAMINOPHEN 325 MG TAB PO PRN ×3 (00:08→17:11)
[2018-12-10] MEDS: ICY HOT EXT PRN (00:08)
[2018-12-10] MEDS: LEVALBUTEROL 1.25MG/0.5ML NEB INH SCH ×4 (01:21→19:50)
[2018-12-10] MEDS: IPRATROPIUM BROMIDE NEB SOLN 0.02% 2.5 ML VIAL INH SCH ×4 (01:21→19:49)
[2018-12-10] MEDS: LEVOTHYROXINE SODIUM 50 MCG TABLET PO SCH (05:43)
[2018-12-10] MEDS: CLOTRIMAZOLE 10 MG TROCHE BUCCAL SCH ×4 (06:09→21:14)
[2018-12-10] MEDS: FLUTICASONE/SALMETEROL (ADVAIR) 500/50 INH 14 PUFF INH SCH ×2 (08:03→21:13)
[2018-12-10] MEDS: VERAPAMIL HCL 40 MG TAB PO SCH ×3 (08:04→21:10)
[2018-12-10] MEDS: FUROSEMIDE 40 MG TAB PO SCH (08:04)
[2018-12-10] MEDS: RIVAROXABAN 15 MG TAB PO SCH ×2 (08:04→21:10)
[2018-12-10] MEDS: VITAMIN B COMPLEX TAB PO SCH (08:04)
[2018-12-10] MEDS: CHOLECALCIFEROL 1,000 UNITS TAB PO SCH (08:05)
--- NOTE | 2018-12-10 10:18 | XRay Report ---
XR lumbar spine 2-3V CLINICAL HISTORY: right sciatica COMPARISON STUDY: No previous studies for comparison. FINDINGS: The bones are osteopenic. There are moderate T12, L1, and L2 compression fractures. There a re mild L4 and L5 compression fractures. There are no subluxations. IMPRESSION: Osteopenia and age-indeterminate T12, L1, L2, L4, and L5 compression fractures. Electronically signed by: Edson Bui M.D. 12/10/2018 10:17 AM
--- NOTE | 2018-12-10 12:39 | Cardiology Progress Note ---
Date of Service December 10, 2018 Assessment & Plan (1) Acute and chronic respiratory failure: Patient admitted with acute on chronic respiratory failure which is multifactorial including noncompliance with medications, mild volume overload, exacerbation of COPD with underlying interstitial lung disease. Worsening edema noted on exam today. Recommend addition of Aldactone 25 mg daily. Repeat basic metabolic panel in a.m. Transition verapamil to long-acting formulation 120 mg daily at time of discharge. Continue oral corticosteroids and nebulizer treatments per pulmonary/IM. Wean supplemental oxygen as tolerated. (2) Chronic systolic dysfunction of right ventricle: Continue oral Lasix 40mg daily. Add Aldactone 25 mg daily. treatment of underlying pulmonary process/emphysema/COPD as per pulmonary medicine. (3) DVT (deep venous thrombosis): Left posterior tibial deep venous thrombosis noted. Patient transition to oral Xarelto. Continue 15 mg twice daily for 21 days followed by 20 mg daily for minimum of 3 months. (4) Noncompliance: Subjective Patient seen and examined at the bedside. Reports more prominent pedal and ankle edema today. Heart rate controlled on telemetry. Denies chest pain or unusual shortness of breath. Cough unchanged. No sputum production. No orthopnea. Review of Systems Review of Systems: All systems reviewed & are unremarkable except as noted in HPI & below Physical Exam Physical Exam: General: NAD, AAO x3, well nourished. Chronically ill. HEENT: Normocephalic. Atraumatic. Conjunctiva pink, no scleral icterus. Neck: No carotid bruits, the carotid upstrokes are brisk. No JVD. No HJR Heart: Regular rhythm, normal S-1 and S-2 no S-3 or S-4 gallop. No murmurs or rub appreciated. PMI is not displaced. No RV heave. Lungs: Diminished breath sounds bilateral. No rhonchi or wheeze. Scant crackles at the left base. Abdomen: Normal bowel sounds. Soft. Nontender. No masses or organomegaly. No abdominal bruits. Extremities: 1+ B/L pedal, ankle, and pretibial edema bilaterally. No clubbing or cyanosis. Pulses: radial=2/4, Dorsalis pedis =2/4, posterior tibial=2/4. Neuro: Cranial nerves grossly intact. No focal motor deficit. Results & Data Vital Signs (Past 12 Hours) Vital Signs Temp Pulse Resp BP BP Pulse Ox 12/10/18 11:49 36.4 C L 84 20 137/78 94 12/10/18 07:56 36.7 C 77 20 156/91 H 93 12/10/18 07:12 71 18 93 12/10/18 03:10 36.3 C L 77 20 154/81 H 91 12/10/18 01:23 78 16 95 (1) Acute and chronic respiratory failure Respiratory failure complication: hypoxia Qualified Code(s): J96.21 - Acute and chronic respiratory failure with hypoxia (2) DVT (deep venous thrombosis) DVT location: lower extremity Affected thrombotic vein of extremity: tibial Chronicity: acute Laterality: left Qualified Code(s): I82.442 - Acute embolism and thrombosis of left tibial vein
[2018-12-10] MEDS: SPIRONOLACTONE 25 MG TAB PO SCH (13:52)
--- NOTE | 2018-12-10 20:12 | Hospitalist Progress Note ---
Date of Service December 10, 2018 Assessment & Plan (1) Acute and chronic respiratory failure: Chronic hypoxic respiratory failure on home O2. Presented with worsening hypoxia and SOB. Worsening hypoxia probably secondary to combination of COPD and CHF as discussed below. Continue supplemental O2. Follow-up chest x-ray 12/08 did not show any changes. (2) COPD exacerbation: No apparent infection. Continue prednisone and bronchodilators. (3) Chronic systolic dysfunction of right ventricle: Echo 12/04/18 showed normal LV systolic function, dilated RV, reduced RVEF, pulmonary hypertension. Continue diuretics. Continue management of underlying pulmonary disease. (4) Lung mass: CTA chest demonstrated 1.7 x 1.2 mass RLL. Follow-up per Pulmonary (although patient reluctant to undergo further evaluation). (5) HTN (hypertension): Continue verapamil. (6) DVT (deep venous thrombosis): (present on admission) Venous duplex of lower extremities demonstrated DVT in the left posterior tibial vein as well as thromboses in bilateral greater saphenous veins. Started on rivaroxaban; duration of treatment to be determined (at least 3 months). (7) Sciatica: Chronic low back pain and right sciatica. Patient asking if she can get a back brace. Check plain films LS spine and discuss with Ortho Spine. (8) Discharge planning issues: Poor functional status due to underlying cardiopulmonary disease. Reasonable to consider skilled care or inpt rehab, but patient prefers DC to home. Her son is applying for waiver program so that he can provide assistance at home. Will coordinate discharge planning with Case Management. Family Medicine follow-up with Dr. Carr. Subjective Recheck for multiple problems. Patient seen in their room around 0910. SOB with minimal exertion. Ongoing congested cough. No fever. No chest pain. Lower extremity edema improved. Chronic low back pain with right sciatica- wondering if she can get a back brace. Review of Systems: Constitutional- no fever. Cardiac- no chest pain. Pulmonary- as noted above. GI- no nausea, vomiting, diarrhea, melena, hematochezia. - no urinary symptoms. Otherwise, as noted above. Physical Exam Constitutional: no acute distress Respiratory: no respiratory distress Auscultation: + wheezes (diffuse) Cardiovascular: Rate/Rhythm: regular rate and regular rhythm Heart Sounds: + murmur (I/ sys murmur LSB); no gallop and no cardiac rub Vessels: no JVD Extremities: + edema (trace pretibial); no calf tenderness Gastrointestinal (Abdomen): normal bowel sounds, soft, nontender, no hepatosplenomegaly Skin: no rashes, warm and dry Psychiatric: Orientation: alert and oriented x 3 Results & Data Vital Signs (Past 12 Hours) Vital Signs Temp Pulse Pulse Resp BP BP Pulse Ox 12/10/18 19:50 85 20 94 12/10/18 17:05 77 12/10/18 15:53 36.6 C 77 19 145/82 H 93 12/10/18 13:55 77 16 94 12/10/18 11:49 36.4 C L 84 20 137/78 94 (1) Acute and chronic respiratory failure Respiratory failure complication: hypoxia Qualified Code(s): J96.21 - Acute and chronic respiratory failure with hypoxia (2) DVT (deep venous thrombosis) DVT location: lower extremity Affected thrombotic vein of extremity: tibial Chronicity: acute Laterality: left Qualified Code(s): I82.442 - Acute embolism and thrombosis of left tibial vein
[2018-12-10] MEDS: ALBUTEROL HFA 8 GM INHALER INH PRN (21:08)
[2018-12-11] MEDS: CLOTRIMAZOLE 10 MG TROCHE BUCCAL SCH ×4 (00:02→15:17)
[2018-12-11] MEDS: ACETAMINOPHEN 325 MG TAB PO PRN ×3 (00:34→18:11)
[2018-12-11] MEDS: ICY HOT EXT PRN (00:34)
[2018-12-11] MEDS: LEVALBUTEROL 1.25MG/0.5ML NEB INH SCH ×3 (01:00→14:16)
[2018-12-11] MEDS: IPRATROPIUM BROMIDE NEB SOLN 0.02% 2.5 ML VIAL INH SCH ×3 (01:00→14:16)
[2018-12-11] MEDS: LEVOTHYROXINE SODIUM 50 MCG TABLET PO SCH (06:04)
[2018-12-11 08:30] LABS: BUN Creatinine Ratio 36.8 (10-20); Calcium 8.8 mg/dl (8.5-10.1); Creatinine Clr Calc Pharmacy 72.8 ml/min; Est GFR (African American) 102.1; Est GFR (Non-African American) 88.1; Potassium 3.8 mmol/L (3.5-5.1)
[2018-12-11] MEDS: RIVAROXABAN 15 MG TAB PO SCH (08:34)
[2018-12-11] MEDS: CHOLECALCIFEROL 1,000 UNITS TAB PO SCH (08:34)
[2018-12-11] MEDS: FUROSEMIDE 40 MG TAB PO SCH (08:34)
[2018-12-11] MEDS: VERAPAMIL HCL 40 MG TAB PO SCH ×2 (08:34→14:11)
[2018-12-11] MEDS: VITAMIN B COMPLEX TAB PO SCH (08:34)
[2018-12-11] MEDS: SPIRONOLACTONE 25 MG TAB PO SCH (08:35)
[2018-12-11] MEDS: FLUTICASONE/SALMETEROL (ADVAIR) 500/50 INH 14 PUFF INH SCH (08:35)
[2018-12-11] MEDS: POLYETHYLENE (MIRALAX) 17 GM PACK PO PRN (09:13)
--- NOTE | 2018-12-11 11:35 | Cardiology Progress Note ---
Date of Service December 11, 2018 Assessment & Plan (1) Acute and chronic respiratory failure: Patient admitted with acute on chronic respiratory failure which is multifactorial including noncompliance with medications, mild volume overload, exacerbation of COPD with underlying interstitial lung disease. Transition verapamil to long-acting formulation 120 mg daily at time of discharge. Continue oral corticosteroids and nebulizer treatments per pulmonary/IM. Wean supplemental oxygen as tolerated. (2) Chronic systolic dysfunction of right ventricle: Continue oral Lasix 40mg daily + aldactone 25mg daily. Treatment of underlying pulmonary process/emphysema/COPD as per pulmonary medicine. (3) DVT (deep venous thrombosis): Left posterior tibial deep venous thrombosis noted. Patient transition to oral Xarelto. Continue 15 mg twice daily for 21 days followed by 20 mg daily for minimum of 3 months. (4) Noncompliance: Subjective Patient seen and examined at the bedside. Edema unchanged. Dyspnea on exertion is stable. No orthopnea or PND. Denies chest discomfort. Tolerating medications. Aldactone added yesterday. Repeat basic metabolic panel stable. Patient offers no new concerns/complaints at this time. Review of Systems Review of Systems: All systems reviewed & are unremarkable except as noted in HPI & below Physical Exam Physical Exam: General: NAD, AAO x3, well nourished. Chronically ill. HEENT: Normocephalic. Atraumatic. Conjunctiva pink, no scleral icterus. Neck: No carotid bruits, the carotid upstrokes are brisk. No JVD. No HJR Heart: Regular rhythm, normal S-1 and S-2 no S-3 or S-4 gallop. No murmurs or rub appreciated. PMI is not displaced. No RV heave. Lungs: Diminished breath sounds bilateral. No rhonchi or wheeze. Scant crackles at the left base. Abdomen: Normal bowel sounds. Soft. Nontender. No masses or organomegaly. No abdominal bruits. Extremities: 1+ B/L pedal, ankle, and pretibial edema bilaterally. No clubbing or cyanosis. Pulses: radial=2/4, Dorsalis pedis =2/4, posterior tibial=2/4. Neuro: Cranial nerves grossly intact. No focal motor deficit. Results & Data Vital Signs (Past 12 Hours) Vital Signs Temp Pulse Pulse Resp BP BP Pulse Ox 12/11/18 10:48 36.4 C L 86 22 119/71 90 05/15/19 07:32 36.3 C L 85 20 150/91 H 90 12/11/18 06:59 85 18 92 12/11/18 05:06 36.2 C L 74 18 129/76 90 12/11/18 01:00 83 20 90 12/10/18 23:50 81 12/10/18 23:40 36.4 C L 74 18 133/77 91 (1) Acute and chronic respiratory failure Respiratory failure complication: hypoxia Qualified Code(s): J96.21 - Acute and chronic respiratory failure with hypoxia (2) DVT (deep venous thrombosis) DVT location: lower extremity Affected thrombotic vein of extremity: tibial Chronicity: acute Laterality: left Qualified Code(s): I82.442 - Acute embolism and thrombosis of left tibial vein
--- NOTE | 2018-12-11 17:23 | Hospitalist Progress Note ---
Date of Service December 11, 2018 Assessment & Plan (1) Acute and chronic respiratory failure: Chronic hypoxic respiratory failure on home O2. Presented with worsening hypoxia and SOB. Worsening hypoxia probably secondary to combination of COPD and CHF as discussed below. Continue supplemental O2. Follow-up chest x-ray 12/08 did not show any changes. Continue supplemental O2 at 5 LPM. (2) COPD exacerbation: No apparent infection. Received prednisone and bronchodilators. Continue usual inhalers. (3) Chronic systolic dysfunction of right ventricle: Echo 12/04/18 showed normal LV systolic function, dilated RV, reduced RVEF, pulmonary hypertension. Continue diuretics. Continue management of underlying pulmonary disease. (4) Lung mass: CTA chest demonstrated 1.7 x 1.2 mass RLL. Follow-up per Pulmonary (although patient reluctant to undergo further evaluation). (5) HTN (hypertension): Continue verapamil. (6) DVT (deep venous thrombosis): (present on admission) Venous duplex of lower extremities demonstrated DVT in the left posterior tibial vein as well as thromboses in bilateral greater saphenous veins. Started on rivaroxaban; duration of treatment to be determined (at least 3 months). (7) Sciatica: Chronic low back pain and right sciatica. Patient asking if she can get a back brace. Plain films LS spine demonstrated degenerative changes and multiple compression fractures. Outpatient follow-up with flow specialist for recommendations (although not a surgical candidate due to severe cardiopulmonary disease). (8) Discharge planning issues: Poor functional status due to underlying cardiopulmonary disease. Reasonable to consider skilled care or inpt rehab, but patient prefers DC to home. Her son is applying for waiver program so that he can provide assistance at home. Discharge to home with services. Family Medicine follow-up with Dr. Carr. Pulmonary Medicine follow-up with Dr. Fontana. Subjective Recheck for multiple problems. Patient seen in their room around 1440. Ongoing SOB with minimal exertion. Ongoing cough. No fever. No chest pain. Lower extremity edema improved. Chronic low back pain with right sciatica. Review of Systems: Constitutional- no fever. Cardiac- no chest pain. Pulmonary- as noted above. GI- no nausea, vomiting, diarrhea, melena, hematochezia. - no urinary symptoms. Otherwise, as noted above. Physical Exam Constitutional: no acute distress Respiratory: no respiratory distress Auscultation: + wheezes (diffuse) Cardiovascular: Rate/Rhythm: regular rate and regular rhythm Heart Sounds: + murmur (I/ sys murmur LSB); no gallop and no cardiac rub Vessels: no JVD Extremities: + edema (trace pretibial); no calf tenderness Gastrointestinal (Abdomen): normal bowel sounds, soft, nontender, no hepatosplenomegaly Musculoskeletal: TEDS applied. Skin: no rashes, warm and dry Psychiatric: Orientation: alert and oriented x 3 Results & Data Vital Signs (Past 12 Hours) Vital Signs Temp Pulse Resp BP Pulse Ox 12/11/18 15:50 36.6 C 87 19 150/78 H 90 12/11/18 14:17 87 20 93 12/11/18 10:48 36.4 C L 86 22 119/71 90 12/11/18 07:32 36.3 C L 85 20 150/91 H 90 12/11/18 06:59 85 18 92 (1) Acute and chronic respiratory failure Respiratory failure complication: hypoxia Qualified Code(s): J96.21 - Acute and chronic respiratory failure with hypoxia (2) DVT (deep venous thrombosis) DVT location: lower extremity Affected thrombotic vein of extremity: tibial Chronicity: acute Laterality: left Qualified Code(s): I82.442 - Acute embolism and thrombosis of left tibial vein
--- NOTE | 2018-12-11 17:24 | Discharge Summary ---
Date of Service Date of Admission: 12/01/18 Date of Discharge: 12/11/18 Admission HPI Per Admitting Provider This is a 73-year-old female with past medical history significant for chronic COPD, restrictive lung disease, pulmonary hypertension, chronic respiratory failure, oxygen 3 liters at rest and 5lts on ambulation, atrial fibrillation, history of lower extremity venous system with his osteoarthritis, lower back pain with sciatica, ambulatory dysfunction, hypertension, hyperlipidemia, Worship. The patient was recently admitted a couple of times in the hospital for acute on chronic respiratory acute on chronic diastolic CHF. The patient was noncompliant with her medications. She was just discharged on November 22 to [facility] where she was there for some time. She was discharged on Lasix 20 mg daily. On admission she refused to take Lasix but later she agreed to take. She says last Sunday she went home to live with her son and she says she ran out of her medications last Sunday and she called PCP office for Lasix and levothyroxine and potassium, but those medications were not called back in yet and even while at [facility], she was feeling tightness in the chest, which progressively got worse and she was getting short of breath, so she decided to come to the hospital. Here chest x-ray showed CHF picture. She was given IV Lasix. She says she is feeling slightly better. Denies any fever, chills. No cough, no headache, no dizziness. Appetite is not great. No nausea, no abdominal pain. Normal bowel and bladder movements, somewhat constipated. Takes stool softeners. No burning micturition .She says she has tried to cut back on salt but her son is cooking and still working on it. She is able to ambulate to her kitchen and come back when she was discharged to home, but today she could not walk because of shortness of breath and so she came to the ER. She has been feeling hot and thought to have high blood pressure. Admission Exam Per Admitting Provider GENERAL: The patient is moderate built, currently not in acute distress. VITAL SIGNS: Temperature 36.4, pulse 118, respiratory rate 18, blood pressure 152/108, oxygen 95% on 2 liters OxyMask. HEENT: No pallor, no icterus. Pupils equal, round, reactive to light. NECK: No JVD, no neck masses, no carotid bruits. CARDIOVASCULAR: S1, S2 heard, regular rate and rhythm, no murmur, no gallop. RESPIRATORY SYSTEM: Normal AP diameter. No accessory muscle use. Bilateral mild crackles heard. No wheezing. ABDOMEN: Soft, bowel sounds present. Nontender. Nondistended. CENTRAL NERVOUS SYSTEM: Cranial nerves II through XII grossly intact, nonfocal. EXTREMITIES: Bilateral lower extremity, gross edema present. Principal Diagnosis acute on chronic hypoxic respiratory failure COPD with exacerbation CHF, acute on chronic LV diastolic + RV systolic heart failure DVT lower extremities, present on admission RLL pulmonary mass 1.7 x 1.2 cm Discharge Exam Constitutional no acute distress Respiratory no respiratory distress Auscultation: + wheezes (diffuse) Cardiovascular Rate/Rhythm: regular rate and regular rhythm Heart Sounds: + murmur (I/ sys murmur LSB); no gallop and no cardiac rub Vessels: no JVD Extremities: + edema (trace pretibial); no calf tenderness Gastrointestinal (Abdomen) normal bowel sounds, soft, nontender, no hepatosplenomegaly Skin no rashes, warm and dry Psychiatric Orientation: alert and oriented x 3 Discharge Data Allergies Allergy/AdvReac Type Severity Reaction Status Date / Time No Known Allergies Allergy Verified 12/02/18 00:15 Consultations 12/02/18 00:05 ED Decision to Admit Stat 12/02/18 02:52 Consult Case Management - Discharge Planning Routine 12/02/18 08:00 Consult Cardiology Routine 12/03/18 10:33 Consult Pulmonology Routine Ordered Studies 12/02/18 02:52 CT angio chest PE protocol Urgent US venous doppler [facility] Urgent Hospital Course (1) Acute and chronic respiratory failure: Chronic hypoxic respiratory failure on home O2. Presented with worsening hypoxia and SOB. Worsening hypoxia probably secondary to combination of COPD and CHF as discussed below. Continue supplemental O2. Follow-up chest x-ray 12/08 did not show any changes. Continue supplemental O2 at 5 LPM. (2) COPD exacerbation: No apparent infection. Received prednisone and bronchodilators. Continue usual inhalers. (3) Chronic systolic dysfunction of right ventricle: Echo 12/04/18 showed normal LV systolic function, dilated RV, reduced RVEF, pulmonary hypertension. Continue diuretics. Continue management of underlying pulmonary disease. (4) Lung mass: CTA chest demonstrated 1.7 x 1.2 mass RLL. Follow-up per Pulmonary (although patient reluctant to undergo further evaluation). (5) HTN (hypertension): Continue verapamil. (6) DVT (deep venous thrombosis): (present on admission) Venous duplex of lower extremities demonstrated DVT in the left posterior tibial vein as well as thromboses in bilateral greater saphenous veins. Started on rivaroxaban; duration of treatment to be determined (at least 3 months). (7) Sciatica: Chronic low back pain and right sciatica. Patient asking if she can get a back brace. Plain films LS spine demonstrated degenerative changes and multiple compression fractures. Outpatient follow-up with biodiesel engine specialist for recommendations (although not a surgical candidate due to severe cardiopulmonary disease). (8) Discharge planning issues: Poor functional status due to underlying cardiopulmonary disease. Reasonable to consider skilled care or inpt rehab, but patient prefers DC to home. Her son is applying for waiver program so that he can provide assistance at home. Discharge to home with services. Family Medicine follow-up with Dr. Carr. Pulmonary Medicine follow-up with Dr. Fontana. (9) COPD (chronic obstructive pulmonary disease): (10) Chronic respiratory failure with hypoxia, on home O2 therapy: Total Time Total Time Spent Total Time Spent (In Minutes): 40 Discharge Plan Discharge Items Patient Disposition: Home - Home Health Services Reason For Visit: trouble breathing Discharge Diagnosis: worsening COPD (emphysema) congestive heart failure blood clots in legs Condition: Fair Discharge Goals: Decrease discomfort and Improve disease control Activity: As commented below Activity Comment: gradually increase activity as tolerated Non-emergency contact: Primary Care Provider, Hospitalist and Can Dragger Call non-emergency contact if: you have any medication questions, your symptoms worsen and your temperature is above 101 Follow-up/Referrals: Santiago Fontana DO [Physician] - (12/27/18 at 8:30 a.m. ) Dada Carr MD [Primary Care Provider] - (12/17/2018 11:00 AM Dada Carr MD) Diet: Heart Healthy Addtl Provider Instructions: Take rivaroxaban (Xarelto) with food for at least 3 months: 15 mg twice a day for 16 more days then 20 mg daily for at least 3 months Do not use aspirin, ibuprofen (Advil or Motrin) or naproxen (Aleve) while you are taking blood thinners like rivaroxaban (Xarelto). Seek medical attention if you have: * temperature above 101 * chest pain or trouble breathing * abdominal pain, nausea, vomiting * diarrhea, dark stools or bloody stools * any unanswered questions or concerns Call 911 if symptoms are severe. Call 911 and go to the Emergency Room if: * You have tightness or pain in your chest that does not go away with rest or Nitroglycerin * You are very short of breath even with rest Call your doctor if any of the following symptoms or problems start or get worse: * Shortness of breath or difficulty breathing * Wake up at night short of breath * Chest pain * Cough * Swelling of your hands, fee, or legs * More fatigued or tired with your normal activity * Palpitations - sudden fast heart beats WEIGHT * Weigh yourself every morning after using the bathroom. * Use the same scale. * Wear the same amount of clothing. * Write your weight down on your chart. * Call your doctor if you gain more than 2-3 pounds in 1-2 days. MEDICATIONS * Use this discharge instruction sheet for instructions. * Take your medications at the time your doctor ordered. * Do not skip a dose of your medicines. * If you miss a dose of medicine, take as soon as possible, but DO NOT DOUBLE A DOSE. * Read your medicine information when you get home. * Know all of the side effects of your medicine. * Call your doctor's office if you have any side effects. * Be sure all of your doctors know what medicine and herbs you take (including cold, flu, and herbal medicine). * Pain Medicine: If you do not get relief from your pain, please call your doctor for help. Take the following with you to your follow-up doctor appointments: * Weight Chart * Medication List * List of questions Do not drink excessive alcohol, beer or wine. Call if you have any questions or problems. My cell # is [phone]. You can also reach a [facility] hospitalist on duty at [facility] 24 hours a day by calling [phone]. Prescriptions: New Xarelto 15 mg tablet 15 mg PO BID Qty: 32 RF: 0 Xarelto 20 mg tablet 20 mg PO DAILY Qty: 30 RF: 2 acetaminophen 500 mg tablet 1,000 mg PO Q8H PRN (Reason: fever or pain) Qty: 60 RF: 0 furosemide 40 mg tablet 40 mg PO DAILY Qty: 30 RF: 5 spironolactone 25 mg tablet 25 mg PO DAILY Qty: 30 RF: 5 fluticasone propion-salmeterol [Advair Diskus] 500-50 mcg/dose blister with device 1 puffs INH BID Qty: 60 RF: 5 Continued fluticasone propion-salmeterol [Advair Diskus] 500-50 mcg/dose Blister With Device 1 inh INHALATION Q12H RF: 0 levothyroxine 50 mcg Tablet 50 mcg PO DAILY RF: 0 Vitamin D3 1,000 units 1,000 units PO DAILY RF: 0 amlodipine 10 mg 10 mg PO DAILY RF: 0 potassium gluconate 595 mg 595 mg PO DAILY RF: 0 vitamin B complex 1 tab 1 tab PO DAILY RF: 0 Icy Hot(lidocaine HCl-menthol) 4-1 % Cream 1 applic TOPICAL BID PRN (Reason: Pain) RF: 0 albuterol sulfate [Ventolin HFA] 90 mcg/actuation Hfa Aerosol Inhaler 2 puff INHALATION Q3H PRN (Reason: Shortness Of Breath) RF: 0 Combivent Respimat 20-100 mcg/actuation Mist 2 puff INHALATION QID PRN (Reason: Wheezing) RF: 0 Discontinued aspirin 325 mg Tablet,Delayed Release (Dr/Ec) 325 mg PO DAILY RF: 0 furosemide [Lasix] 20 mg Tablet 20 mg PO DAILY RF: 0 Stand-Alone Forms: [facility] Discharge Orders: Discharge Order (Routine); Ordered 12/11/18 Ordered By: Darion Jay Admission Data Admit Date/Time: 12/02/18 01:42 Attending Provider: Darion Jay Admit Provider: Solitario Kwon Primary Care Provider: Dada Carr Other Providers: Solitario Kwon ; Devon Garcia ; Adriel Gutierrez ; Hank Hanley ; Yusuf Castanon ; John Landis ; Jr Isaacs ; Kelly Amaral ; Alda Ibarra ; Jordan Bill ; Diana Beverly H ; Lo Painter Service: Telemetry Other Interventions: Discharge Summary Assessment (RN) Last Done: 12/11/18 18:13 Pending Studies at Discharge: No DC Date/Time DO NOT enter until pt leaves facility: 12/11/18 19:31
[2018-12-11] MEDS: ALBUTEROL HFA 8 GM INHALER INH PRN (18:11)
== END 2018-12-11 19:31 | disposition home health service (06) | DRG 291 ==
LOC: ED 23:08 → 2S 12-02 01:42 → SUATTDRO 12-02 01:42 → 2S 12-02 01:58

== ENCOUNTER 2021-01-05 12:07 | Inpatient (IN) ==
[2021-01-05] MEDS ORDERED: NITROGLYCERIN 2% OINTMENT 30GM TUBE EXT STA (12:31)
--- NOTE | 2021-01-05 12:38 | Emergency Department Note ---
Impression & Plan Hypoxia, CHF (congestive heart failure), SOB (shortness of breath), Pedal edema ED Provider Note NAME: ABUNDIO GARCIA AGE: 75 SEX: F : 1945 ARRIVES VIA: Ambulance INFORMANT: [Patient][ems] ED PROVIDER(S): [Bogdan Desouza MD] CHIEF COMPLAINT: Short of breath HISTORY OF PRESENT ILLNESS: The patient is a 75-year-old female who presents to the ER with dyspnea. She h as had some respiratory issues for a few months but things have worsened in the last several days. He saw her doctor yesterday who recommended she come to the hospital/ED. She was unable to make it here. Today, her home nurse suggested she call the ambulance. The patient's O2 saturation was in the mid 80s on her typical 5 L. She had the oxygen supplementation increased and there was an improvement in her O2 saturation. The patient has not had fever. There has been no increased cough. She admits to some heaviness across her chest but no chest pain. She does have pedal edema but she states this is about baseline. She is on a diuretic daily. Of note, the patient has not been vaccinated for COVID-19. She is had no Covid exposures. 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 She states that she is not currently on any antibiotics. Patient was on some prednisone recently, she finished that about a week ago. She states prednisone typically seems to help her breathing. REVIEW OF SYSTEMS: See HPI for pertinent positives and negatives. A total of ten systems were reviewed and were otherwise negative. PMHx/PSHx: See Below SOCIAL HISTORY: See Below. PHYSICAL EXAM: GENERAL: Patient is in no acute distress. HEENT: No acute trauma, normocephalic atraumatic, mucous membranes moist, no nasal congestion, no scleral icterus. NECK: No stridor, no adenopathy, no meningismus, trachea is midline. LUNGS: Crackles at both bases, no wheezing, she does have a somewhat increased respiratory rate, no respiratory distress. HEART: Regular rhythm, mildly tachycardic, no murmurs. ABDOMEN: Soft, nontender, bowel sounds positive, no hernias, no peritonitis. EXTREMITIES: No cyanosis, moderate bilateral pedal edema, full range of motion of all the joints without pain or difficulty, no signs for acute trauma. She does have a dressing on her right lower leg. NEUROLOGIC: Oriented x 3, no acute motor or sensory deficits, no focal weakness. SKIN: No rash, no jaundice, no diaphoresis. DIFFERENTIAL DIAGNOSIS: Reactive airway disease, pneumonia, pneumothorax, COPD, CHF, infection, COVID- 19, cardiac ischemia, pulmonary embolism, bronchitis, musculoskeletal, gastrointestinal, as well as other pathologies. EMERGENCY DEPARTMENT COURSE/PROCEDURES: ECG: Indication was shortness of breath. The ECG shows a normal sinus rhythm with a rate of 97. There is a right bundle branch block. 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 There is some diffuse nonspecific ST change. There are no PVCs. No ST elevation. When compared to an ECG from 04 Dec 2018, the QRS has increased in length. The nonspecific ST changes are more pronounced. Continuous Cardiac Monitoring: An order was placed for continuous cardiac monitoring. The monitor shows a rate of 99 with normal sinus rhythm. Critical Care Note: I have personally spent 53 minutes of critical care time in the direct management of this patient. This includes bedside care, interpretation of diagnostic studies, and testing, discussion with consultants, patient, and family members, and other required patient management activities. This 53 minutes is in excess of all separately billable procedures. MEDICAL DECISION MAKING: There is no leukocytosis or worrisome anemia. There is a normal platelet count. INR is slightly high at 1.2. No renal failure or significant electrolyte abnormality. Lactic acid level is not elevated making sepsis less likely. No worrisome liver enzyme elevation. BNP is elevated consistent with CHF and fluid overload. COVID-19 test is pending. Chest film shows what appears to be fluid buildup/CHF. There was no pneumonia or pneumothorax. On exam, the patient did have crackles at both bases and seemed somewhat short of breath. She was not febrile. The patient was aggressively managed. She was given a DuoNeb and IV Solu- Medrol. She was placed on 2 inches of nitroglycerin paste. She eventually received 60 mg of IV Lasix. A Figueroa catheter was placed. Patient does seem to be feeling improved with the treatment provided. She does seem more comfortable. She still is requiring excess oxygen above her baseline though. I do think a hospital stay is warranted. Patient appears to be fluid overloaded. There may be a component of COPD here as well. Discharge would not be appropriate. I did speak with the patient and case management. The on-call hospitalist was consulted. Past Med/Surg History Medical History Chronic bronchitis Chronic respiratory failure with hypoxia, on home O2 therapy Chronic systolic dysfunction of right ventricle COPD (chronic obstructive pulmonary disease) Diastolic CHF, chronic HTN (hypertension) Lung mass Patient is Cheondoism Pulmonary nodule, right "last CT in 2010 revealed R lung nodule, recommended FNA or PET, patient ref used further work up" Sciatica Venous stasis dermatitis of left lower extremity Surgical History History of colonoscopy History of D&C History of tubal ligation Family History Other Family history non-contributory Social History Smoking Status: Former smoker Second Hand Exposure: No; Hx Alcohol Use: No Hx Substance Use: No Preferred Language: Hungarian Communication Ability: Effective Terrazzo Tile Maker Required: No Beliefs That Will Affect Care: None marital status: Current Living Situation: Family Current Living Situation Comment: at [facility] for rehab Feels Safe at Home: Yes Assistive Devices: Oxygen - Continuous Allergies Allergies Allergy/AdvReac Type Severity Reaction Status Date / Time No Known Allergies Allergy Verified 12/03/20 14:33 Home Meds Home Medications Medication Instructions Recorded Confirmed Combivent Respimat 2 puff INHALATION QID PRN 10/06/18 12/02/18 albuterol sulfate [Ventolin HFA] 2 puff INHALATION Q3H PRN 10/06/18 12/02/18 fluticasone propion-salmeterol 1 inh INHALATION Q12H 12/02/18 12/02/18 [Advair Diskus] levothyroxine 50 mcg PO DAILY 12/02/18 12/02/18 vitamin B complex 1 tab PO DAILY 12/02/18 12/02/18 Icy Hot(lidocaine HCl-menthol) 1 applic TOPICAL BID PRN 12/05/18 12/05/18 aspirin 81 mg tablet,delayed 81 mg PO DAILY 09/23/20 release cholecalciferol (vitamin D3) 125 125 mcg PO DAILY 09/23/20 mcg (5,000 unit) capsule potassium gluconate 595 mg (99 mg) 595 mg PO DAILY 09/23/20 tablet sulfamethoxazole 800 1 tab PO Q12H 12/03/20 mg-trimethoprim 160 mg tablet Previous Rx's Medication Instructions Recorded acetaminophen 1,000 mg PO Q8H PRN #60 tab 12/11/18 furosemide 40 mg PO DAILY #30 tab 12/11/18 rivaroxaban [Xarelto] 20 mg PO DAILY #30 tab 12/11/18 spironolactone 25 mg PO DAILY #30 tab 12/11/18 collagenase clostridium histo. 250 1 applic TOPICAL DAILY #30 g 09/23/20 unit/gram topical ointment collagenase clostridium histo. 250 1 applic TOPICAL DAILY #90 g 10/07/20 unit/gram topical ointment sulfamethoxazole 800 1 tab PO BID #8 tab 12/03/20 mg-trimethoprim 160 mg tablet Results & Data (ED) Vital Signs Vital Signs - 24 hr 01/05/21 12:13 01/05/21 12:16 01/05/21 12:17 Temperature 36.7 C Temperature Source Oral Pulse Rate 102 H Pulse Rate [Right Finger] 108 H Pulse Rate from SpO2 Sensor 102 H Respiratory Rate 27 H Respiratory Effort / Characteristics Non-Labored Spontaneous Non-Labored Spontaneous Respiratory Depth Normal Normal Respiratory Pattern Regular Regular Blood Pressure 142/102 H Blood Pressure [Left Arm] 142/102 H Blood Pressure Mean 115 Blood Pressure Mean [Left Arm] 115 Blood Pressure Position [Left Arm] Sitting Pulse Oximetry 89 L 90 Oxygen Delivery Method Nasal Cannula Nasal Cannula Nasal Cannula Oxygen Flow Rate 6 6 6 Sepsis Recent Fever Within 48 Hours Sepsis New/Unexplained Change in Mental Status Sepsis Action Taken by Nursing 01/05/21 12:21 01/05/21 12:22 01/05/21 12:30 Temperature Temperature Source Pulse Rate 102 H 100 H Pulse Rate [Right Finger] Pulse Rate from SpO2 Sensor 102 H 100 H Respiratory Rate 17 22 Respiratory Effort / Characteristics Respiratory Depth Respiratory Pattern Blood Pressure 146/103 H Blood Pressure [Left Arm] Blood Pressure Mean 117 Blood Pressure Mean [Left Arm] Blood Pressure Position [Left Arm] Pulse Oximetry 94 93 Oxygen Delivery Method Nasal Cannula Nasal Cannula Oxygen Flow Rate 7 7 Sepsis Recent Fever Within 48 Hours No Sepsis New/Unexplained Change in Mental Status No Sepsis Action Taken by Nursing No Action Required 01/05/21 12:40 01/05/21 12:50 01/05/21 13:00 Temperature Temperature Source Pulse Rate 100 H 97 H 96 H Pulse Rate [Right Finger] Pulse Rate from SpO2 Sensor 100 H 97 H 96 H Respiratory Rate 24 24 19 Respiratory Effort / Characteristics Non-Labored Spontaneous Respiratory Depth Respiratory Pattern Blood Pressure 133/87 Blood Pressure [Left Arm] Blood Pressure Mean 102 Blood Pressure Mean [Left Arm] Blood Pressure Position [Left Arm] Pulse Oximetry 93 94 91 Oxygen Delivery Method Nasal Cannula Oxygen Flow Rate 7 Sepsis Recent Fever Within 48 Hours Sepsis New/Unexplained Change in Mental Status Sepsis Action Taken by Nursing 01/05/21 13:10 01/05/21 13:20 01/05/21 13:30 Temperature Temperature Source Pulse Rate 99 H 101 H 101 H Pulse Rate [Right Finger] Pulse Rate from SpO2 Sensor 99 H 101 H 101 H Respiratory Rate 24 23 20 Respiratory Effort / Characteristics Respiratory Depth Respiratory Pattern Blood Pressure 132/98 Blood Pressure [Left Arm] Blood Pressure Mean 109 Blood Pressure Mean [Left Arm] Blood Pressure Position [Left Arm] Pulse Oximetry 94 92 91 Oxygen Delivery Method Nasal Cannula Oxygen Flow Rate 7 Sepsis Recent Fever Within 48 Hours Sepsis New/Unexplained Change in Mental Status Sepsis Action Taken by Nursing 01/05/21 13:31 01/05/21 13:40 01/05/21 13:50 Temperature Temperature Source Pulse Rate 99 H 99 H Pulse Rate [Right Finger] 102 H Pulse Rate from SpO2 Sensor 99 H 102 H Respiratory Rate 20 18 22 Respiratory Effort / Characteristics Spontaneous Respiratory Depth Respiratory Pattern Blood Pressure Blood Pressure [Left Arm] Blood Pressure Mean Blood Pressure Mean [Left Arm] Blood Pressure Position [Left Arm] Pulse Oximetry 91 91 90 Oxygen Delivery Method Nasal Cannula Oxygen Flow Rate 7 Sepsis Recent Fever Within 48 Hours Sepsis New/Unexplained Change in Mental Status Sepsis Action Taken by Nursing 01/05/21 14:00 01/05/21 14:10 Temperature Temperature Source Pulse Rate 98 H 96 H Pulse Rate [Right Finger] Pulse Rate from SpO2 Sensor 97 H 96 H Respiratory Rate 21 20 Respiratory Effort / Characteristics Respiratory Depth Respiratory Pattern Blood Pressure 137/109 H Blood Pressure [Left Arm] Blood Pressure Mean 118 Blood Pressure Mean [Left Arm] Blood Pressure Position [Left Arm] Pulse Oximetry 91 91 Oxygen Delivery Method Nasal Cannula Oxygen Flow Rate Sepsis Recent Fever Within 48 Hours Sepsis New/Unexplained Change in Mental Status Sepsis Action Taken by [facility] Medications Current Medication List: was personally reviewed by me Laboratory Data Attestation: I reviewed the patient's lab results. Result diagrams: 01/05/21 12:31 01/05/21 12:31 Lab Results 01/05/21 01/05/21 01/05/21 Range/Units 12:31 12:31 12:31 WBC 7.69 (4.8-10.8) K/uL RBC 5.45 H (4.2-5.4) M/uL Hgb 17.3 H (12.0-16.0) g/dL Hct 50.7 H (37-47) % MCV 93.0 (80-100) fL MCH 31.7 (25-34) pg MCHC 34.1 (32-36) g/dL RDW Std Deviation 53.4 H (36.4-46.3) fL RDW Coeff of Giuliana 15.9 H (11.5-14.5) % Plt Count 151 (130-400) K/uL Immature Gran % (Auto) 0.3 % Neut % (Auto) 73.6 % Lymph % (Auto) 16.6 % Tama % (Auto) 8.5 % Eos % (Auto) 0.5 % Baso % (Auto) 0.5 % Neut # (Auto) 5.66 (1.4-6.5) K/uL Lymph # (Auto) 1.28 (1.2-3.4) K/uL Tama # (Auto) 0.65 H (0.11-0.59) K/uL Eos # (Auto) 0.04 (0-0.5) K/uL Baso # (Auto) 0.04 (0-0.2) K/uL Immature Gran # (Auto) 0.02 (0.00-0.02) K/uL PT 12.3 H (9.0-12.0) Seconds INR 1.2 H (0.9-1.1) APTT 28.8 (21.0-31.0) Seconds PTT Ratio 1.1 Sodium 139 (136-145) mmol/L Potassium 3.7 (3.5-5.1) mmol/L Chloride 104 (98-107) mmol/L Carbon Dioxide 26 (21-32) mmol/L Anion Gap 10.0 (3-11) BUN 21 H (7-18) mg/dl Creatinine 1.13 (0.6-1.2) mg/dl Est Cr Clr Drug Dosing 38.7 ml/min Est GFR ( Amer) 55.1 ml/min Est GFR (Non-Af Amer) 47.5 ml/min BUN/Creatinine Ratio 18.6 (10-20) Glucose 148 H (70-99) mg/dl Lactate (0.4-2.0) mmol/L Calcium 9.4 (8.5-10.1) mg/dl Magnesium 2.1 (1.8-2.4) mg/dl Total Bilirubin 1.5 H (0.2-1) mg/dl AST 34 (15-37) U/L ALT 24 (12-78) U/L Alkaline Phosphatase 110 (45-117) U/L Troponin I < 0.015 (0-0.045) ng/ml NT-Pro-B Natriuret Pep 7993 H (0-900) pg/ml Total Protein 7.1 (6.4-8.2) gm/dl Albumin 3.4 (3.4-5.0) gm/dl Globulin 3.7 (2.5-4.0) gm/dl Albumin/Globulin Ratio 0.9 (0.9-2) Specimen Hemolysis COVID-19 Eval Order 01/05/21 01/05/21 Range/Units 13:10 13:18 WBC (4.8-10.8) K/uL RBC (4.2-5.4) M/uL Hgb (12.0-16.0) g/dL Hct (37-47) % MCV (80-100) fL MCH (25-34) pg MCHC (32-36) g/dL RDW Std Deviation (36.4-46.3) fL RDW Coeff of Giuliana (11.5-14.5) % Plt Count (130-400) K/uL Immature Gran % (Auto) % Neut % (Auto) % Lymph % (Auto) % Tama % (Auto) % Eos % (Auto) % Baso % (Auto) % Neut # (Auto) (1.4-6.5) K/uL Lymph # (Auto) (1.2-3.4) K/uL Tama # (Auto) (0.11-0.59) K/uL Eos # (Auto) (0-0.5) K/uL Baso # (Auto) (0-0.2) K/uL Immature Gran # (Auto) (0.00-0.02) K/uL PT (9.0-12.0) Seconds INR (0.9-1.1) APTT (21.0-31.0) Seconds PTT Ratio Sodium (136-145) mmol/L Potassium (3.5-5.1) mmol/L Chloride (98-107) mmol/L Carbon Dioxide (21-32) mmol/L Anion Gap (3-11) BUN (7-18) mg/dl Creatinine (0.6-1.2) mg/dl Est Cr Clr Drug Dosing ml/min Est GFR ( Amer) ml/min Est GFR (Non-Af Amer) ml/min BUN/Creatinine Ratio (10-20) Glucose (70-99) mg/dl Lactate 1.5 (0.4-2.0) mmol/L Calcium (8.5-10.1) mg/dl Magnesium (1.8-2.4) mg/dl Total Bilirubin (0.2-1) mg/dl AST (15-37) U/L ALT (12-78) U/L Alkaline Phosphatase (45-117) U/L Troponin I (0-0.045) ng/ml NT-Pro-B Natriuret Pep (0-900) pg/ml Total Protein (6.4-8.2) gm/dl Albumin (3.4-5.0) gm/dl Globulin (2.5-4.0) gm/dl Albumin/Globulin Ratio (0.9-2) Specimen Hemolysis COVID-19 Eval Order Covid19 at [facility] Administered Medications Discontinued Medications Albuterol (Albut/Ipratrop 3mg/0.5mg Neb 3 Ml Vial) 3 ml NEB NOW STA Stop: 01/05/21 13:15 Last Admin: 01/05/21 13:31 Dose: 3 ml Documented by: [id number] Furosemide (Furosemide 40 Mg/4 Ml Vial) 60 mg IV NOW STA Stop: 01/05/21 13:00 Last Admin: 01/05/21 14:13 Dose: 60 mg Documented by: [id number] Methylprednisolone (Methylprednisolone 125 Mg/2 Ml Vial) 60 mg IV NOW STA Stop: 01/05/21 13:15 Last Admin: 01/05/21 13:34 Dose: 60 mg Documented by: [id number] Nitroglycerin (Nitroglycerin 2% Ointment 30gm Tube) 2 inch EXT NOW STA Stop: 01/05/21 12:32 Last Admin: 01/05/21 13:34 Dose: 2 inch Documented by: [id number] Imaging Data Radiologist's Impression: Chest X-Ray 01/05/21 12:31 XR chest 1V portable HISTORY: 75 years-old Female SOB acute shortness of breath COMPARISON: Chest radiographs 12/09/2018, CTA chest 12/02/2018. TECHNIQUE: Portable AP view of the chest FINDINGS: Cardiac silhouette is enlarged. Prominence of the pulmonary arteries suggestive of pulmonary artery hypertension. Calcified plaque the thoracic aorta. Emphysema with progressive reticular interstitial opacities. No pneumothorax, pleural effusion or lobar airspace consolidation. The solid nodules of the basal right lower lobe described on comparison study are not definitively seen by radiography. Linear subsegmental scarring/atelectasis of the left lung base. Degenerative changes of the shoulders and spine. IMPRESSION: 1. Cardiomegaly with pulmonary artery hypertension. 2. Emphysema with progressive reticular interstitial opacities. Findings may represent progressive fibrosis or mild pulmonary edema. An interstitial pne umonitis is considered less likely. ACT 112: Negative or not required by law. The above report was generated using voice recognition software. It may contain grammatical, syntax or spelling errors. Electronically signed by: Abdifatah Rogers M.D. 01/05/2021 1:08 PM Discharge Plan Visit Data Chief Complaint: Shortness of Breath/Dyspnea Stated Complaint: increased SOB ED Provider: Bogdan Desouza Discharge Problem: Hypoxia, CHF (congestive heart failure), SOB (shortness of breath), Pedal edema Patient Disposition: Admitted As Inpatient Condition: Fair Forms Stand Alone Forms: My [facility] Prescriptions Prescriptions: No Action cholecalciferol (vitamin D3) 125 mcg (5,000 unit) capsule 125 mcg PO DAILY RF: 0 aspirin [Adult Aspirin Regimen] 81 mg tablet,delayed release (DR/EC) 81 mg PO DAILY RF: 0 potassium gluconate 595 mg (99 mg) tablet 595 mg PO DAILY RF: 0 Santyl 250 unit/gram ointment 1 applic topical DAILY Qty: 30 RF: 1 sulfamethoxazole-trimethoprim [Bactrim DS] 800-160 mg tablet 1 tab PO Q12H RF: 0 sulfamethoxazole-trimethoprim [Bactrim DS] 800-160 mg tablet 1 tab PO BID Qty: 8 RF: 0 fluticasone propion-salmeterol [Advair Diskus] 500-50 mcg/dose Blister With Device 1 inh INHALATION Q12H RF: 0 levothyroxine 50 mcg Tablet 50 mcg PO DAILY RF: 0 Icy Hot(lidocaine HCl-menthol) 4-1 % Cream 1 applic TOPICAL BID PRN (Reason: Pain) RF: 0 Xarelto 20 mg tablet 20 mg PO DAILY Qty: 30 RF: 2 acetaminophen 500 mg tablet 1,000 mg PO Q8H PRN (Reason: fever or pain) Qty: 60 RF: 0 furosemide 40 mg tablet 40 mg PO DAILY Qty: 30 RF: 5 spironolactone 25 mg tablet 25 mg PO DAILY Qty: 30 RF: 5 albuterol sulfate [Ventolin HFA] 90 mcg/actuation Hfa Aerosol Inhaler 2 puff INHALATION Q4H PRN (Reason: Shortness Of Breath) RF: 0 Combivent Respimat 20-100 mcg/actuation Mist 2 puff INHALATION QID PRN (Reason: Wheezing) RF: 0 B-complex with vitamin C [Vitamin B Complex With C] Capsule 1 cap PO DAILY RF: 0 Referrals Referrals: Franky Choi MD [Primary Care Provider] - Discharge Problem: CHF (congestive heart failure) Qualifiers: Heart failure type: unspecified Heart failure chronicity: acute on chronic Qualified Code(s): I50.9 - Heart failure, unspecified
[2021-01-05] MEDS ORDERED: FUROSEMIDE 40 MG/4 ML VIAL IV STA (12:59)
--- NOTE | 2021-01-05 13:10 | XRay Report ---
XR chest 1V portable HISTORY: 75 years-old Female SOB acute shortness of breath COMPARISON: Chest radiographs 12/09/2018, CTA chest 12/02/2018. TECHNIQUE: Portable AP view of the chest FINDINGS: Cardiac silhouette is enlarged. Prominence of the pulmonary arteries suggestive of pulmonary artery h ypertension. Calcified plaque the thoracic aorta. Emphysema with progressive reticular interstitial o pacities. No pneumothorax, pleural effusion or lobar airspace consolidation. The solid nodules of the basal right lower lobe described on comparison study are not definitively seen by radiography. Linea r subsegmental scarring/atelectasis of the left lung base. Degenerative changes of the shoulders and spine. IMPRESSION: 1. Cardiomegaly with pulmonary artery hypertension. 2. Emphysema with progressive reticular interstitial opacities. Findings may represent progressive fi brosis or mild pulmonary edema. An interstitial pneumonitis is considered less likely. ACT 112: Negative or not required by law. The above report was generated using voice recognition software. It may contain grammatical, syntax o r spelling errors. Electronically signed by: Abdifatah Rogers M.D. 01/05/2021 1:08 PM
[2021-01-05 13:14] LABS: Mean Corpuscular Hgb Conc 34.1 g/dL (32-36)
[2021-01-05] MEDS ORDERED: methylPREDNISolone 125 MG/2 ML VIAL IV STA (13:14)
[2021-01-05] MEDS ORDERED: ALBUT/IPRATROP 3MG/0.5MG NEB 3 ML VIAL NEB STA (13:14)
[2021-01-05 13:21] LABS: INR 1.2 (0.9-1.1); Partial Thromboplastin Ratio 1.1; Partial Thromboplastin Time 28.8 Seconds (21.0-31.0); Prothrombin Time 12.3 Seconds (9.0-12.0)
[2021-01-05 13:25] LABS: Hematocrit (blood only) 50.7 % (37-47); Hemoglobin 17.3 g/dL (12.0-16.0); Mean Corpuscular Hemoglobin 31.7 pg (25-34); RDW Coefficient of Variation 15.9 % (11.5-14.5); RDW Standard Deviation 53.4 fL (36.4-46.3); Red Blood Count 5.45 M/uL (4.2-5.4); White Blood Count 7.69 K/uL (4.8-10.8)
[2021-01-05 13:27] LABS: Albumin Level 3.4 gm/dl (3.4-5.0); Aspartate Aminotransferase 34 U/L (15-37); BUN Creatinine Ratio 18.6 (10-20); Blood Urea Nitrogen 21 mg/dl (7-18); Calcium 9.4 mg/dl (8.5-10.1); Carbon Dioxide 26 mmol/L (21-32); Chloride 104 mmol/L (98-107); Creatinine Clr Calc Pharmacy 38.7 ml/min; Est GFR (African American) 55.1 ml/min; Est GFR (Non-African American) 47.5 ml/min; Glucose 148 mg/dl (70-99); Magnesium 2.1 mg/dl (1.8-2.4); Potassium 3.7 mmol/L (3.5-5.1); Sodium 139 mmol/L (136-145)
[2021-01-05 13:44] LABS: Basophils # (auto) 0.04 K/uL (0-0.2); Basophils % (auto) 0.5 %; Eosinophils # (auto) 0.04 K/uL (0-0.5); Eosinophils % (auto) 0.5 %; Immature Granulocytes # (auto) 0.02 K/uL (0.00-0.02); Immature Granulocytes % (auto) 0.3 %; Lymphocytes # (auto) 1.28 K/uL (1.2-3.4); Lymphocytes % (auto) 16.6 %; Monocytes # (auto) 0.65 K/uL (0.11-0.59); Monocytes % (auto) 8.5 %; Neutrophils # (auto) 5.66 K/uL (1.4-6.5); Neutrophils % (auto) 73.6 %; Platelet Count 151 K/uL (130-400)
[2021-01-05 13:50] LABS: Alanine Aminotransferase 24 U/L (12-78); Albumin Globulin Ratio 0.9 (0.9-2); Alkaline Phosphatase 110 U/L (45-117); Bilirubin,Total 1.5 mg/dl (0.2-1); Globulin 3.7 gm/dl (2.5-4.0); NT Pro B Type Natriuretic Pept 7993 pg/ml (0-900); Total Protein 7.1 gm/dl (6.4-8.2); Troponin I < 0.015 ng/ml (0-0.045)
--- NOTE | 2021-01-05 14:45 | History & Physical Report ---
Date of Service January 05, 2021 Assessment & Plan (1) Acute on chronic diastolic (congestive) heart failure: -Admit to telemetry -IV Lasix 60 mg administered in the ER, outs are about 400 mL with pure wick bedside canister, continue to monitor strict I's/O's, daily weights, and cont Lasix 40 mg IV BID. Home dosing of lasix 40 mg PO BID. - Pt reports her dry weight is 148, does not weigh herself daily, admits to worsening edema in BLE. On admission is 148 lbs - however she may not know her weight and answer unreliable? - BNP is ~8000 on admission. - 2 D echo ordered - Consult cardiology -CXR does not show infiltrate or specific fluid overload although she has distinct crackles on exam. Will check CT chest noncontrast - follow. (2) Acute and chronic respiratory failure: - Hx of such, is currently requiring 7 L compared to baseline of 5L at rest and 6 on exertion - Diuresis as above - Treated with Solu-Medrol, duo nebs for possibility of COPD exacerbation underlying. She reports that humidity normally does worsen her COPD. (3) COPD (chronic obstructive pulmonary disease): -COPD/emphysema/restrictive lung disease -Patient denies using albuterol nebulizers at home recently, is using Ventolin HFA and Combivent however is not using spacer as she is lost it. Encourage having son trying to find it or consider replacement spacer prior to DC. -Solu-Medrol 60 mg given in the ER, will continue with prednisone 40 mg daily - Reviewed CXR, checking CT chest - Check Procal - No antibiotics for now as she does not have infectious symptoms, WBC is 7 K, no lactate. (4) HTN (hypertension): - Lasix as above, not on other antihypertensives (5) HLD (hyperlipidemia): - Does not take statin therapy, consider am lipid panel (6) Pulmonary hypertension: - Stable, presumed, rechecking echo as above to help determine although (7) Venous stasis ulcer of right lower leg with edema of right lower leg: - Following with wound clinic as outpatient. 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 Most recent wound culture cleared. Continue outpatient wound consult. DVT ppx: - teds, scds CODE: DNR/DNI Dispo: From home, likely to remain in the hospital x 1-2 days History of Present Illness Primary Care Provider: Franky Choi MD This is a 75 yo F with PMhx of chronic systolic CHF, afib, HTN, HLD, COPD, rest rictive lung disease, pulmonary hypertension, chronic respiratory failure with hypoxia on home O2 at 5 L, ambulatory dysfunction, Rastafari. Pt presents today for acute shortness of breath which has been coming on for about 1.5 weeks. She wears 5 L at baseline and 6 L of supplemental O2 at baseline. She admits to intermittently having a slight cough, no production, no fevers, no chills, no sweats, no sneezing, runny nose, sore throat. She did recently treat herself for thrush with some baking soda/vinegar in the past few days and feels that it is now improved. She has been using her inhalers at home but is not using the spacer, states she lost it, so was encouraged to use this or suggested to replace it. She lives at home with her son who is her caregiver. She herself reports that he takes good care of her, is not abusive, but does not always listen to her requests. She took her morning medication today. Patient has been using Lasix 40 mg twice daily. She does not weigh herself daily. She has been drinking more fluids because she feels her urine is dark whenever she limits fluid intake and takes Lasix at the same time. Reports her breathing is always a bit worse with more humidity like it has been recently. She was seen by her PCP as an outpatient who referred her to the ER last night however she did not present to the ER due to lack of transportation. Home health nurse visited her at home this morning and recommended she seek emergency care, and called an ambulance for her. Here in the ER the patient was given 2 inches of Nitropaste, Lasix 60 mg IV x1, and Solu-Medrol 60 mg IV and DuoNeb treatment for her symptoms which have now improved. COVID-19 is negative. BNP 7993. She is requiring 7 L due to hypoxia in the mid 80s on baseline of 5 L. CXR reviewed. Allergies Allergy/AdvReac Type Severity Reaction Status Date / Time No Known Allergies Allergy Verified 01/05/21 15:08 Home Medications Medication Instructions Recorded Confirmed Type Combivent Respimat 2 puff INHALATION QID PRN 10/06/18 01/05/21 History albuterol sulfate [Ventolin HFA] 2 puff INHALATION Q4H PRN 10/06/18 01/05/21 History acetaminophen 1,000 mg PO Q8H PRN #60 tab 12/11/18 01/05/21 Rx furosemide 40 mg PO DAILY #30 tab 12/11/18 01/05/21 Rx aspirin 81 mg tablet,delayed 81 mg PO DAILY 09/23/20 01/05/21 History release cholecalciferol (vitamin D3) 125 125 mcg PO DAILY 09/23/20 01/05/21 History mcg (5,000 unit) capsule collagenase clostridium histo. 250 1 applic TOPICAL DAILY #30 g 09/23/20 01/05/21 Rx unit/gram topical ointment potassium gluconate 595 mg (99 mg) 595 mg PO DAILY 09/23/20 01/05/21 History tablet B-complex with vitamin C [Vitamin 1 cap PO DAILY 01/05/21 01/05/21 History B Complex With C] albuterol sulfate 2.5 mg CONTINUOUS NEBULIZATION QID 01/05/21 01/05/21 History Past Med/Surg History Medical History Chronic bronchitis Chronic respiratory failure with hypoxia, on home O2 therapy Chronic systolic dysfunction of right ventricle COPD (chronic obstructive pulmonary disease) Diastolic CHF, chronic HTN (hypertension) Lung mass Patient is Mu-ism Pulmonary nodule, right "last CT in 2010 revealed R lung nodule, recommended FNA or PET, patient refused further work up" Sciatica Venous stasis dermatitis of left lower extremity Surgical History History of colonoscopy History of D&C History of tubal ligation Family History Other Family history non-contributory Social History Smoking Status: Never smoker Second Hand Exposure: No; Hx Alcohol Use: No Hx Substance Use: No Preferred Language: Upper Sorbian Communication Ability: Effective Recovery Assistant Required: No Beliefs That Will Affect Care: None marital status: Current Living Situation: Family Current Living Situation Comment: at [facility] for rehab Feels Safe at Home: Yes Assistive Devices: Oxygen - Continuous Review of Systems Review of Systems: Constitutional: No fever, sweats or chills Eyes: No diplopia, no worsening or blurred vision ENT: normal hearing, no trouble swallowing, + no sore throat, recently treated thrush with baking soda and vinegar. Respiratory: As per HPI. Cardiovascular: No chest pain, tightness or palpitations Abdomen: No pain, nausea, vomiting, diarrhea or constipation Musculoskeletal: No joint pain, calf pain, swelling Neurologic: + General weakness, numbness/tingling, + uses walker/hangs onto household items for balance. Psychiatric: No anxiety or depression Skin: No rash or itch Physical Exam Physical Exam: General: awake, alert, no apparent distress Head: Normocephalic, atraumatic ENT: PERRL, EOMI, no pharyngeal exudate, endentulous, + mucous membranes erythematous, moist Chest: + Crackles throughout, on 7 L via NC, O2 sats 91%, no wheeze or rales Cardiac: NSR, slightly tachycardic with heart rate in the low 100s, no murmur, + mild JVD, normal peripheral pulses, good capillary refill Abdominal: NABS x 4 quadrants, soft, nondistended, nontender to palpation, no rebound or guarding Extremities: 3+ pitting peripheral edema BLE to knees, right lower ankle wrapped in kerlix, anterior killian wound healed over, right posterior ankle wound healing, no surrounding erythema, no drainage, calfs nontender to palpation Psych: Normal mood and affect Neuro: AAO x 3, strength intact bilaterally and rated 5/5, no motor deficits, speech is clear, no peripheral sensory deficits Results & Data Results & Data ([facility]) Vital Signs (Past 12 Hours) Vital Signs Temp Pulse Pulse Resp BP BP Pulse Ox 01/05/21 14:10 96 H 20 01/05/21 14:00 98 H 21 137/109 H 91 01/05/21 13:50 99 H 22 90 01/05/21 13:40 99 H 18 91 01/05/21 13:31 102 H 20 91 01/05/21 13:30 101 H 20 132/98 91 01/05/21 13:20 101 H 23 92 01/05/21 13:10 99 H 24 94 01/05/21 13:00 96 H 19 133/87 91 01/05/21 12:50 97 H 24 94 01/05/21 12:40 100 H 24 93 01/05/21 12:30 100 H 22 146/103 H 93 01/05/21 12:21 102 H 17 94 01/05/21 12:16 90 01/05/21 12:13 36.7 C 102 H 108 H 27 H 142/102 H 142/102 H 89 L Diagnostic Findings Chest X-Ray 01/05/21 12:31 XR chest 1V portable HISTORY: 75 years-old Female SOB acute shortness of breath COMPARISON: Chest radiographs 12/09/2018, CTA chest 12/02/2018. TECHNIQUE: Portable AP view of the chest FINDINGS: Cardiac silhouette is enlarged. Prominence of the pulmonary arteries suggestive of pulmonary artery hypertension. Calcified plaque the thoracic aorta. Emphysema with progressive reticular interstitial opacities. No pneumothorax, pleural effusion or lobar airspace consolidation. The solid nodules of the basal right lower lobe described on comparison study are not definitively seen by radiography. Linear subsegmental scarring/atelectasis of the left lung base. Degenerative changes of the shoulders and spine. IMPRESSION: 1. Cardiomegaly with pulmonary artery hypertension. 2. Emphysema with progressive reticular interstitial opacities. Findings may represent progressive fibrosis or mild pulmonary edema. An interstitial pneumonitis is considered less likely. ACT 112: Negative or not required by law. The above report was generated using voice recognition software. It may contain grammatical, syntax or spelling errors. Electronically signed by: Abdifatah Rogers M.D. 01/05/2021 1:08 PM ECG Additional Comments: 05-JAN-2021 12:53:57 [facility]-EDSTAT ROUTINE RETRIEVAL Normal sinus rhythm Right bundle branch block Septal infarct , age undetermined Abnormal ECG When compared with ECG of 04-DEC-2018 06:56, Questionable change in QRS duration Septal infarct is now Present 25mm/s 10mm/mV 150Hz 9.0.9 12SL 241 DAISY: 15 Re ferred by: REFERRED SELF Unconfirmed Vent. rate 97 BPM NV interval 160 ms QRS duration 116 ms QT/QTc 394/500 ms Code Status & VTE Plan Code Status DNR/DNI -discussed with the patient at bedside Supervising Physician Co-Signing Physician Notes Patient seen and examined by me, care coordinated with Connie Sutton PA-C, please refer to note above for further detail. Patient is a 75-year-old female, with history of COPD, CHF, with chronic respiratory failure, on 5 L of oxygen at baseline, who now presents with acute on chronic respiratory failure, requiring 7 L of oxygen, in the ED reporting chest tightness. In ED she was provided with Nitropatch, 60 IV Lasix, and Solu-Medrol IV. Currently she is resting in bed, communicates easily, says that she feels little better. She is alert and oriented and answering questions appropriately. She has bilateral rhonchi and crackles noted. No wheezing. Heart sounds slightly tachycardic. Abdomen soft, nontender, nondistended. There is some lower extremity edema, and wounds on the right lower extremity. Moves extremities spontaneously. Chest x-ray without significant pulmonary edema, however BNP elevated. Received IV Lasix in the ED and responded well. We will continue with IV Lasix for now, obtain echo and will discuss further with cardiology. Patient however has also history of emphysema,? Interstitial lung disease, will obtain CT chest to further evaluate. In the meantime we will treat for COPD exacerbation as well with steroids, nebs, and Azithromycin. Procalcitonin currently pending. Likely will need to discuss further with pulmonary medicine. Patient states that she currently does not follow-up with any entry level administrative assistant. Lucas Steward MD (1) Acute and chronic respiratory failure Respiratory failure complication: hypoxia Qualified Code(s): J96.21 - Acute and chronic respiratory failure with hypoxia
[2021-01-05] MEDS ORDERED: POTASSIUM CHLORIDE CRTAB 20 MEQ TABCR PO STA (15:24)
--- NOTE | 2021-01-05 16:18 | CT Scan Report ---
CT chest diagnostic wo con CT DOSE: 233.54 mGy.cm CLINICAL HISTORY: 75 years-old Female with Hypoxia, eval for fluid vs infectious source. Acute hypox ia TECHNIQUE: Multiaxial CT images of the chest were performed without contrast. A dose lowering techni que was utilized adhering to the principles of ALARA. COMPARISON: CTA chest 12/02/2018, 03/14/2018. FINDINGS: Mildly heterogeneous thyroid parenchyma without discrete nodule. There is no adenopathy. Mo derate cardiomegaly with trace pericardial effusion. Extensive coronary artery calcifications. Modera te calcified plaque the thoracic aorta. No thoracic aortic aneurysm. Dilated pulmonary artery measure s up to 3.7 cm. Mild right hemidiaphragmatic elevation. Emphysema with interstitial coarsening suggestive of fibrosis . Mild right greater than left bibasilar groundglass opacities with mild bibasilar mucous plugging. L ow attenuating ovoid 1.2 x 0.8 cm solid nodule of the basal right lower lobe, image 214 most recently measured 1.7 x 1.2 cm on the 2019 exam. A lobular branching component is noted along the superior ma rgin suggestive of mucous plugging. The nodule demonstrates macroscopic fat attenuation. No new or en larging pulmonary nodules. Distended gallbladder with cholelithiasis. Mild generalized body wall edema. Degenerative changes of the spine and shoulders. Subacute healing nondisplaced fracture of the anterior right fifth rib is ne w from comparison. Additional healed chronic right-sided rib fractures. Mild superior endplate compre ssion at T5 is unchanged. T12 and L1 compression deformities are unchanged. IMPRESSION: 1. Emphysema with mild bibasilar atelectasis. 2. Low attenuating ovoid solid nodule of the basal right lower lobe measuring 1.2 x 0.8 cm has decrea sed in size from 2019 suggestive of benign etiology. Mild associated adjacent mucous plugging. 3. Cardiomegaly with pulmonary artery hypertension. 4. Gallbladder distention with cholelithiasis. 5. Additional findings as above. ACT 112: Negative or not required by law. Electronically signed by: Abdifatah Rogers M.D. 01/05/2021 4:17 PM
[2021-01-05] MEDS ORDERED: IPRATROPIUM BROMIDE/ALBUTEROL respimat INH INH PRN (18:27)
[2021-01-05] MEDS ORDERED: ALBUTEROL HFA 8 GM INHALER INH PRN (18:27)
[2021-01-05] MEDS ORDERED: ONDANSETRON INJ 2 MG/ML 2 ML VIAL IV PRN (18:27)
[2021-01-05] MEDS ORDERED: ALBUTEROL 0.083% NEBU SOLN 3 ML VIAL INH SCH (18:27)
[2021-01-05] MEDS ORDERED: XOPENEX/ATROVENT 1.25mg/0.5MG NEB COMBO NEB SCH (19:00)
[2021-01-05] MEDS ORDERED: Albuterol HFA 8 GM Inhaler (Combivent Respimat P&T Subs) INH PRN (19:10)
[2021-01-05] MEDS ORDERED: Ipratropium HFA Inhaler (Combivent Respimat P&T Subs) INH PRN (19:11)
[2021-01-05] MEDS: methylPREDNISolone 40 MG in SYRINGE 0 ML IV SCH (20:25)
[2021-01-05] MEDS: AZITHROMYCIN 250 MG TAB PO SCH (20:25)
[2021-01-05] MEDS: guaiFENesin 600 MG TABCR PO SCH (20:26)
[2021-01-05] MEDS: FUROSEMIDE 40 MG/4 ML VIAL IV SCH (20:32)
[2021-01-05] MEDS: IPRATROPIUM BROMIDE NEB SOLN 0.02% 2.5 ML VIAL INH SCH (20:35)
[2021-01-05] MEDS: LEVALBUTEROL 1.25MG/0.5ML NEB INH SCH (20:36)
[2021-01-06] MEDS: IPRATROPIUM BROMIDE NEB SOLN 0.02% 2.5 ML VIAL INH SCH ×2 (00:40→07:35)
[2021-01-06] MEDS: LEVALBUTEROL 1.25MG/0.5ML NEB INH SCH ×2 (00:40→07:36)
[2021-01-06] MEDS ORDERED: VANCOMYCIN CONSULT ACTIVE PRN (02:11)
[2021-01-06] MEDS: VANCOMYCIN HCL 1,000 MG in SODIUM CHLORIDE 0.9% 250 ML IV SCH (02:45)
[2021-01-06] MEDS ORDERED: VANCOMYCIN HCL 1,500 MG in SODIUM CHLORIDE 0.9% 500 ML IV STA (02:45)
[2021-01-06] MEDS: methylPREDNISolone 40 MG in SYRINGE 0 ML IV SCH (03:52)
--- NOTE | 2021-01-06 04:47 | Pharmacy Report ---
Pharmacy Abx Dose Short Note - Date of Service January 06, 2021 - Assessment & Plan Assessment 75 year old F receiving Vancomycin for treatment of bacteremia * PMHx significant for recently being at [facility] for rehab, COPD * Hx of MRSA in right leg cultures from August and October of 2020. Recently on Bactrim DS and Doxycycline as outpatient. * Abx were initially held as patient was afebrile and without leukocytosis. Procalcitonin and lactic acid were also negative. * 1/4 bottles from blood cultures started growing Gram Positive Cocci in chains this morning. Plan Vancomycin * Loading Dose: 1500 mg (22 mg/kg) IV x 1 * Maintenance Dose: 1000 mg (15 mg/kg) IV every 24 hours * Goal trough level: 15 - 20 mcg/mL * No trough level will be ordered unless vancomycin is to continue beyond 48 hours Pharmacy will continue to follow and will adjust dose/frequency as necessary. Thank you.
[2021-01-06 06:17] LABS: Mean Corpuscular Hgb Conc 34.1 g/dL (32-36)
[2021-01-06 06:50] LABS: Hematocrit (blood only) 49.9 % (37-47); Mean Corpuscular Hemoglobin 31.7 pg (25-34); Mean Corpuscular Volume 92.9 fL (80-100); RDW Coefficient of Variation 15.7 % (11.5-14.5); RDW Standard Deviation 53.2 fL (36.4-46.3); Red Blood Count 5.37 M/uL (4.2-5.4); White Blood Count 5.77 K/uL (4.8-10.8)
[2021-01-06 06:52] LABS: Platelet Count 128 K/uL (130-400)
[2021-01-06 06:53] LABS: Platelet Estimate SN (Normal)
[2021-01-06 06:57] LABS: Albumin Level 3.1 gm/dl (3.4-5.0); BUN Creatinine Ratio 17.5 (10-20); Calcium 8.9 mg/dl (8.5-10.1); Creatinine Clr Calc Pharmacy 35.3 ml/min; Est GFR (African American) 50.7 ml/min; Est GFR (Non-African American) 43.7 ml/min; Magnesium 1.9 mg/dl (1.8-2.4); Potassium 3.8 mmol/L (3.5-5.1)
[2021-01-06 06:59] LABS: Albumin Globulin Ratio 0.8 (0.9-2); Bilirubin,Total 1.3 mg/dl (0.2-1); Globulin 3.7 gm/dl (2.5-4.0); Phosphorus 3.6 mg/dl (2.5-4.9); Total Protein 6.8 gm/dl (6.4-8.2)
[2021-01-06] MEDS ORDERED: POTASSIUM CHLORIDE CRTAB 20 MEQ TABCR PO STA ×2 (08:14→22:13)
--- NOTE | 2021-01-06 08:14 | Hospitalist Progress Note ---
Date of Service January 06, 2021 Assessment & Plan (1) Acute on chronic diastolic (congestive) heart failure: -Admit to telemetry -IV Lasix 60 mg administered in the ER, now on 40 IV lasix bid, responding well -continue to monitor strict I's/O's, daily weights, Home dosing of lasix 40 mg PO BID. - Pt reports her dry weight is 148, does not weigh herself daily, admits to worsening edema in BLE. On admission is 148 lbs - however she may not know her weight and answer unreliable? - BNP is ~8000 on admission. - 2 D echo ordered - Consult cardiology -CXR does not show infiltrate or specific fluid overload although she has distinct crackles on exam. Will check CT chest noncontrast - follow. (2) Acute and chronic respiratory failure: - Hx of such, on admission requiring 7 L compared to baseline of 5L at rest and 6 on exertion - Diuresis as above - Treated with Solu-Medrol, duo nebs for possibility of COPD exacerbation underlying. She reports that humidity normally does worsen her COPD. Pulmonary medicine consulted (3) COPD (chronic obstructive pulmonary disease): -COPD/emphysema/restrictive lung disease -Patient denies using albuterol nebulizers at home recently, is using Ventolin HFA and Combivent however is not using spacer as she is lost it. Encourage having son trying to find it or consider replacement spacer prior to DC. -Solu-Medrol 60 mg given in the ER, will continue with prednisone 40 mg daily - Reviewed CXR, checking CT chest - Check Procal -Started azithromycin for possible COPD exacerbation -CT chest - IMPRESSION: 1. Emphysema with mild bibasilar atelectasis. 2. Low attenuating ovoid solid nodule of the basal right lower lobe measuring 1.2 x 0.8 cm has decreased in size from 2019 suggestive of benign etiology. Mild associated adjacent mucous plugging. 3. Cardiomegaly with pulmonary artery hypertension. 4. Gallbladder distention with cholelithiasis. 5. Additional findings as above. Pulmonary medicine consulted - Perforomist and budesonide. Continue albuterol Atrovent rescue nebs as needed. Continue azithromycin for potential COPD exacerbation. She is not really wheezing so I do not think she needs additional systemic steroids currently. Discontinue HFA and transition to DuoNebs as needed. Consideration of outpatient PFTs may be beneficial. Bacteremia -Overnight gram-positive cocci noted in one of the blood cultures, started overnight on vancomycin. There is no discrete infiltrate noted on the CT scan suggestive of pneumonia, per pulm. Started Rocephin pending sensitivities and cultures. (Patient has some wounds of the lower extremity which may be a portal of entry - follows with wound care) Blood cultures repeated Wound care consulted (4) HTN (hypertension): - Lasix as above, not on other antihypertensives (5) HLD (hyperlipidemia): - Does not take statin therapy, consider am lipid panel (6) Pulmonary hypertension: - Stable, presumed, rechecking echo as above to help determine although (7) Venous stasis ulcer of right lower leg with edema of right lower leg: - Following with wound clinic as outpatient. 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 Most recent wound culture cleared. Wound care consult. DVT ppx: - teds, scds CODE: DNR/DNI Dispo: From home, likely to remain in the hospital x 1-2 days Admission and Anticipated Discharge Date Admission Date: January 05, 2021 Subjective Patient seen in follow-up of acute on chronic respiratory failure with hypoxia Notified by nehemiah, one of the blood cultures positive for gram-positive cocci, therefore vancomycin was started overnight Currently patient sitting up in the bed, in no acute distress, talking on the phone without any difficulty or any respiratory distress Feeling much better today, received IV Lasix and IV Solu-Medrol on admission Denies any fever chills, chest pain, abdominal pain, nausea or vomiting Echo pending, cardiology and pulmonary medicine consulted Review of Systems Review of Systems: All systems reviewed & are unremarkable except as noted in HPI & below Constitutional: no fever and no chills Respiratory: + dyspnea (improved) Cardiovascular: no chest pain and no palpitations Gastrointestinal: no abdominal pain, no nausea and no vomiting Physical Exam Physical Exam: General: awake, alert, no apparent distress, on 4-5L of suppl. O2 Head: Normocephalic, atraumatic ENT: PERRL, EOMI, no pharyngeal exudate, endentulous, mucous membranes moist Chest: + mild bibasilar crackles, rhonchi (much improved from previous exam) Cardiac: slightly tachycardic, + mild JVD, normal peripheral pulses, good capillary refill Abdominal: NABS x 4 quadrants, soft, nondistended, nontender to palpation, no rebound or guarding Extremities: 1-2 + pitting peripheral edema BLE to knees, right lower ankle wrapped in kerlix, anterior killian wound healed over, right posterior ankle wound healing, no surrounding erythema, no drainage, calves nontender to palpation Psych: Normal mood and affect Neuro: AAO x 3, strength intact bilaterally and rated 5/5, no motor deficits, speech is clear, no peripheral sensory deficits Results & Data Results & Data ([facility]) Vital Signs (Past 12 Hours) Vital Signs Temp Pulse Resp BP Pulse Ox 01/06/21 08:08 36.5 C 95 H 24 137/90 90 01/06/21 03:28 37.0 C 104 H 18 127/82 90 01/06/21 00:40 102 H 18 90 01/05/21 23:36 36.6 C 99 H 20 128/89 90 01/05/21 20:44 36.4 C L 102 H 18 123/81 90 Laboratory Results 01/06/21 01/06/21 01/05/21 Range/Units 05:35 05:35 16:11 WBC 5.77 (4.8-10.8) K/uL RBC 5.37 (4.2-5.4) M/uL Hgb 17.0 H (12.0-16.0) g/dL Hct 49.9 H (37-47) % MCV 92.9 (80-100) fL MCH 31.7 (25-34) pg MCHC 34.1 (32-36) g/dL RDW Std Deviation 53.2 H (36.4-46.3) fL RDW Coeff of Giuliana 15.7 H (11.5-14.5) % Plt Count 128 L (130-400) K/uL Immature Gran % (Auto) % Neut % (Auto) % Lymph % (Auto) % [place] % (Auto) % Eos % (Auto) % Baso % (Auto) % Neut # (Auto) (1.4-6.5) K/uL Lymph # (Auto) (1.2-3.4) K/uL [place] # (Auto) (0.11-0.59) K/uL Eos # (Auto) (0-0.5) K/uL Baso # (Auto) (0-0.2) K/uL Immature Gran # (Auto) (0.00-0.02) K/uL Platelet Estimate SN (Normal) PT (9.0-12.0) Seconds INR (0.9-1.1) APTT (21.0-31.0) Seconds PTT Ratio Sodium 140 (136-145) mmol/L Potassium 3.8 (3.5-5.1) mmol/L Chloride 106 (98-107) mmol/L Carbon Dioxide 25 (21-32) mmol/L Anion Gap 9.0 (3-11) BUN 21 H (7-18) mg/dl Creatinine 1.21 H (0.6-1.2) mg/dl Est Cr Clr Drug Dosing 35.3 ml/min Est GFR ( Amer) 50.7 ml/min Est GFR (Non-Af Amer) 43.7 ml/min BUN/Creatinine Ratio 17.5 (10-20) Glucose 156 H (70-99) mg/dl Lactate (0.4-2.0) mmol/L Calcium 8.9 (8.5-10.1) mg/dl Phosphorus 3.6 (2.5-4.9) mg/dl Magnesium 1.9 (1.8-2.4) mg/dl Total Bilirubin 1.3 H (0.2-1) mg/dl AST 26 (15-37) U/L ALT 24 (12-78) U/L Alkaline Phosphatase 100 (45-117) U/L Troponin I (0-0.045) ng/ml NT-Pro-B Natriuret Pep (0-900) pg/ml Total Protein 6.8 (6.4-8.2) gm/dl Albumin 3.1 L (3.4-5.0) gm/dl Globulin 3.7 (2.5-4.0) gm/dl Albumin/Globulin Ratio 0.8 L (0.9-2) Procalcitonin 0.05 (0-0.5) ng/ml Specimen Hemolysis COVID-19 Eval Order SARS-CoV-2 (PCR) (Negative) 01/05/21 01/05/21 01/05/21 Range/Units 13:18 13:10 13:10 WBC (4.8-10.8) K/uL RBC (4.2-5.4) M/uL Hgb (12.0-16.0) g/dL Hct (37-47) % MCV (80-100) fL MCH (25-34) pg MCHC (32-36) g/dL RDW Std Deviation (36.4-46.3) fL RDW Coeff of Giuliana (11.5-14.5) % Plt Count (130-400) K/uL Immature Gran % (Auto) % Neut % (Auto) % Lymph % (Auto) % [place] % (Auto) % Eos % (Auto) % Baso % (Auto) % Neut # (Auto) (1.4-6.5) K/uL Lymph # (Auto) (1.2-3.4) K/uL [place] # (Auto) (0.11-0.59) K/uL Eos # (Auto) (0-0.5) K/uL Baso # (Auto) (0-0.2) K/uL Immature Gran # (Auto) (0.00-0.02) K/uL Platelet Estimate (Normal) PT (9.0-12.0) Seconds INR (0.9-1.1) APTT (21.0-31.0) Seconds PTT Ratio Sodium (136-145) mmol/L Potassium (3.5-5.1) mmol/L Chloride (98-107) mmol/L Carbon Dioxide (21-32) mmol/L Anion Gap (3-11) BUN (7-18) mg/dl Creatinine (0.6-1.2) mg/dl Est Cr Clr Drug Dosing ml/min Est GFR ( Amer) ml/min Est GFR (Non-Af Amer) ml/min BUN/Creatinine Ratio (10-20) Glucose (70-99) mg/dl Lactate 1.5 (0.4-2.0) mmol/L Calcium (8.5-10.1) mg/dl Phosphorus (2.5-4.9) mg/dl Magnesium (1.8-2.4) mg/dl Total Bilirubin (0.2-1) mg/dl AST (15-37) U/L ALT (12-78) U/L Alkaline Phosphatase (45-117) U/L Troponin I (0-0.045) ng/ml NT-Pro-B Natriuret Pep (0-900) pg/ml Total Protein (6.4-8.2) gm/dl Albumin (3.4-5.0) gm/dl Globulin (2.5-4.0) gm/dl Albumin/Globulin Ratio (0.9-2) Procalcitonin (0-0.5) ng/ml Specimen Hemolysis COVID-19 Eval Order Covid19 at [facility] SARS-CoV-2 (PCR) NEGATIVE (Negative) 01/05/21 01/05/21 01/05/21 Range/Units 12:31 12:31 12:31 WBC 7.69 (4.8-10.8) K/uL RBC 5.45 H (4.2-5.4) M/uL Hgb 17.3 H (12.0-16.0) g/dL Hct 50.7 H (37-47) % MCV 93.0 (80-100) fL MCH 31.7 (25-34) pg MCHC 34.1 (32-36) g/dL RDW Std Deviation 53.4 H (36.4-46.3) fL RDW Coeff of Giuliana 15.9 H (11.5-14.5) % Plt Count 151 (130-400) K/uL Immature Gran % (Auto) 0.3 % Neut % (Auto) 73.6 % Lymph % (Auto) 16.6 % [place] % (Auto) 8.5 % Eos % (Auto) 0.5 % Baso % (Auto) 0.5 % Neut # (Auto) 5.66 (1.4-6.5) K/uL Lymph # (Auto) 1.28 (1.2-3.4) K/uL [place] # (Auto) 0.65 H (0.11-0.59) K/uL Eos # (Auto) 0.04 (0-0.5) K/uL Baso # (Auto) 0.04 (0-0.2) K/uL Immature Gran # (Auto) 0.02 (0.00-0.02) K/uL Platelet Estimate (Normal) PT 12.3 H (9.0-12.0) Seconds INR 1.2 H (0.9-1.1) APTT 28.8 (21.0-31.0) Seconds PTT Ratio 1.1 Sodium 139 (136-145) mmol/L Potassium 3.7 (3.5-5.1) mmol/L Chloride 104 (98-107) mmol/L Carbon Dioxide 26 (21-32) mmol/L Anion Gap 10.0 (3-11) BUN 21 H (7-18) mg/dl Creatinine 1.13 (0.6-1.2) mg/dl Est Cr Clr Drug Dosing 38.7 ml/min Est GFR ( Amer) 55.1 ml/min Est GFR (Non-Af Amer) 47.5 ml/min BUN/Creatinine Ratio 18.6 (10-20) Glucose 148 H (70-99) mg/dl Lactate (0.4-2.0) mmol/L Calcium 9.4 (8.5-10.1) mg/dl Phosphorus (2.5-4.9) mg/dl Magnesium 2.1 (1.8-2.4) mg/dl Total Bilirubin 1.5 H (0.2-1) mg/dl AST 34 (15-37) U/L ALT 24 (12-78) U/L Alkaline Phosphatase 110 (45-117) U/L Troponin I < 0.015 (0-0.045) ng/ml NT-Pro-B Natriuret Pep 7993 H (0-900) pg/ml Total Protein 7.1 (6.4-8.2) gm/dl Albumin 3.4 (3.4-5.0) gm/dl Globulin 3.7 (2.5-4.0) gm/dl Albumin/Globulin Ratio 0.9 (0.9-2) Procalcitonin (0-0.5) ng/ml Specimen Hemolysis COVID-19 Eval Order SARS-CoV-2 (PCR) (Negative) Medications Administered Current Inpatient Medications Acetaminophen (Acetaminophen 325 Mg Tab) 650 mg PO Q4H PRN PRN Reason: Moderate Pain Stop: 02/04/21 18:26 Aspirin (Aspirin 81 Mg Ectab) 81 mg PO DAILY ARNOLDO Stop: 02/05/21 08:59 Azithromycin (Azithromycin 250 Mg Tab) 250 mg PO QAM [facility]NOLDO Stop: 01/12/21 18:26 Last Admin: 01/05/21 20:25 Dose: 250 mg Documented by: Furosemide (Furosemide 40 Mg/4 Ml Vial) 40 mg IV BID ARNOLDO Stop: 02/04/21 20:59 Last Admin: 01/05/21 20:32 Dose: 40 mg Documented by: Guaifenesin (Guaifenesin 600 Mg Tabcr) 600 mg PO Q12 [facility]NOLDO Stop: 02/04/21 20:59 Last Admin: 01/05/21 20:26 Dose: 600 mg Documented by: Methylprednisolone 40 mg/ (Syringe) 0.64 mls @ 1.5 mls/min IV Q8H [facility] Stop: 02/04/21 19:59 Last Admin: 01/06/21 03:52 Dose: 1.5 mls/min Documented by: Vancomycin HCl 1,000 mg/ (Sodium Chloride) 270 mls @ 200 mls/hr IV Q24H [facility]; Protocol Stop: 01/21/21 02:59 Ipratropium [place] (Ipratropium [place] Neb Soln 0.02% 2.5 Ml Vial) 0.5 mg INH Q6R [facility] Stop: 02/04/21 18:59 Last Admin: 01/06/21 07:35 Dose: Not Given Documented by: Levalbuterol HCl (Levalbuterol 1.25mg/0.5ml Neb) 1.25 mg INH Q6R [facility] Stop: 02/04/21 18:59 Last Admin: 01/06/21 07:36 Dose: Not Given Documented by: Miscellaneous Information (Vancomycin Consult Active) 1 ea N/A UD PRN PRN Reason: Consult Stop: 02/05/21 02:10 Ondansetron HCl (Ondansetron Inj 2 Mg/Ml 2 Ml Vial) 4 mg IV Q4H PRN PRN Reason: Nausea And Vomiting Stop: 02/04/21 18:26 Prednisone (Prednisone 20 Mg Tab) 40 mg PO DAILY [facility] Stop: 02/05/21 08:59 Vitamin B Complex (Vitamin B Complex Tab) 1 tab PO DAILY [facility] Stop: 02/05/21 08:59 Vitamin D (Cholecalciferol 1,000 Units 25 Mcg Tab) 5,000 units PO DAILY [facility] Stop: 02/05/21 08:59 (1) Acute and chronic respiratory failure Respiratory failure complication: hypoxia Qualified Code(s): J96.21 - Acute and chronic respiratory failure with hypoxia
--- NOTE | 2021-01-06 08:33 | Ultrasound Report ---
US gallbladder HISTORY: 75 years-old Female abnormal CT follow-up study in a patient with cholelithiasis and gallbl adder distention COMPARISON: Chest CT 01/05/2021 TECHNIQUE: Multiple real-time sonographic images of the abdominal right upper quadrant were obtained assessing grayscale appearance and color flow FINDINGS: Limited study secondary to body habitus and obscuring bowel gas. The pancreas is not well visualized. The liver is unremarkable. No intrahepatic biliary ductal dilati on or focal hepatic mass. Large gallstones measure up to 1.6 cm. The gallbladder wall measures the up per limits of normal at 3 mm. No pericholecystic fluid. Mild gallbladder distention. Sonographic Murp hy sign was not reported. Normal common bile duct, 5 mm. The imaged right kidney is unremarkable without hydronephrosis. IMPRESSION: 1. Cholelithiasis with mild gallbladder distention. Additionally, the gallbladder wall measures withi n the upper limits of normal at 3 mm. No definite pericholecystic fluid identified. Correlate with cl inical exam findings to exclude acute cholecystitis. 2. No biliary ductal dilation. ACT 112: Negative or not required by law. The above report was generated using voice recognition software. It may contain grammatical, syntax o r spelling errors. Electronically signed by: Abdifatah Rogers M.D. 01/06/2021 8:32 AM
[2021-01-06] MEDS: guaiFENesin 600 MG TABCR PO SCH ×2 (08:51→19:44)
[2021-01-06] MEDS: CHOLECALCIFEROL 1,000 UNITS 25 MCG TAB PO SCH (08:52)
[2021-01-06] MEDS: VITAMIN B COMPLEX TAB PO SCH (08:52)
[2021-01-06] MEDS: ASPIRIN 81 MG ECTAB PO SCH (08:57)
[2021-01-06] MEDS: AZITHROMYCIN 250 MG TAB PO SCH ×2 (08:57→12:22)
[2021-01-06] MEDS: FUROSEMIDE 40 MG/4 ML VIAL IV SCH ×2 (08:59→19:43)
[2021-01-06] MEDS ORDERED: NON-FORMULARY MEDICATION (Potassium Gluconate 595 mg (99 mg) tablet) PO SCH (09:00)
[2021-01-06] MEDS ORDERED: predniSONE 20 MG TAB PO SCH (09:00)
--- NOTE | 2021-01-06 09:51 | Cardiology Consultation ---
Date of Consultation January 06, 2021 Assessment & Plan (1) Acute and chronic respiratory failure: (2) Acute on chronic right-sided congestive heart failure: (3) Pulmonary hypertension: (4) Chronic respiratory failure with hypoxia, on home O2 therapy: (5) Sinus tachycardia: Patient admitted for acute on chronic respiratory failure, secondary to mixed COPD exacerbation and likely acute on chronic right heart failure. She now has + blood cultures as well. Symptoms improving with antibiotics, nebs, steroids, and IV lasix. Echocardiogram has been ordered and will be reviewed when complete. Recommend Continuing IV lasix. Add spironolactone 12.5 mg daily. Monitor I+O's. Underlying sinus tach is compensatory mechanism from underlying hypoxia/respiratory status. She does not wish to take additional medications at this time. Rtes should trend down as respiratory status improves. She does not have outpatient box builder and would likely benefit from specialist given her severe pulmonary disease at baseline. Case discussed with Dr. Landis. Will follow. Supervising Physician Co-Signing Physician Notes I have seen and evaluated the patient. I have reviewed the medical record and discussed the case with Ms. Amaral. I agree with the plan as outlined. In the past the patient has had cultures of a chronic wound which have grown methicillin-resistant staph and coag negative staph. 1 out of 2 blood cultures is positive for gram-positive cocci which may be a contaminant. History of Present Illness Reason for Consultation: SOB; history of diastolic/right sided CHF Requesting Physician: Dr. Askew Attending Physician: Dr. Landis History of Present Illness Patient is a complex 75-year-old female who was admitted to [facility] with worsening shortness of breath and hypoxia. She has a history of chronic respiratory failure with hypoxia, requiring 5 L supplemental O2 on a daily basis with underlying COPD/emphysema. Other history includes chronic right sided heart failure with pulmonary hypertension and RV dysfunction per echo in 2019, otherwise hyperdynamic LV function and no significant valvular disease noted. At that time she was evaluated by cardiology/Dr. Castanon as an inpatient. She was started on lasix, spironolactone for CHF and verapamil due to underlying sinus tach, secondary to her underlying pulmonary disease. Patient failed to keep cardiology outpatient follow up and stopped her medications. She has been taking furosemide 40 mg BID recently due to worsening SOB. She follows with wound clinic for chronic venous stasis ulceration on her right leg. Patient reports progressive shortness of breath and hypoxia at home over the last several weeks. No improvement with titration of furosemide to 40 mg twice daily. She was requesting outpatient antibiotics from her PCP, however due to her hypoxia was recommended she come to the ER. She denies recent chest pain or unusual shortness of breath. She does not weigh herself daily. She notes ongoing lower extremity edema which is unchanged. On admission, she underwent chest x-ray which demonstrated emphysema with underlying pulmonary fibrosis and possible pulmonary edema. She was started on IV Lasix with good response since admission. BNP was elevated at approximately 8000. Troponin was negative. EKG demonstrated normal sinus rhythm with right bundle branch block and mild T wave inversion in the inferior leads. Since admission, one of her blood cultures came back positive. She has been placed on broad-spectrum antibiotics per hospitalist team. At time of consult, patient reports feeling improved since admission. She still has conversational dyspnea. Urinating frequently. No chest pain. No dizziness. No orthopnea, PND. Cough improving. No fever or chills. She is fixated on just receiving her Levaquin and not these "other antibiotics that they are giving me". She reports this would treat her symptoms so she could go home. Allergies Allergy/AdvReac Type Severity Reaction Status Date / Time No Known Allergies Allergy Verified 01/05/21 15:08 Home Medications Medication Instructions Recorded Confirmed Type Combivent Respimat 2 puff INHALATION QID PRN 10/06/18 01/05/21 History albuterol sulfate [Ventolin HFA] 2 puff INHALATION Q4H PRN 10/06/18 01/05/21 History acetaminophen 1,000 mg PO Q8H PRN #60 tab 12/11/18 01/05/21 Rx furosemide 40 mg PO DAILY #30 tab 12/11/18 01/05/21 Rx aspirin 81 mg tablet,delayed 81 mg PO DAILY 09/23/20 01/05/21 History release cholecalciferol (vitamin D3) 125 125 mcg PO DAILY 09/23/20 01/05/21 History mcg (5,000 unit) capsule collagenase clostridium histo. 250 1 applic TOPICAL DAILY #30 g 09/23/20 01/05/21 Rx unit/gram topical ointment potassium gluconate 595 mg (99 mg) 595 mg PO DAILY 09/23/20 01/05/21 History tablet B-complex with vitamin C [Vitamin 1 cap PO DAILY 01/05/21 01/05/21 History B Complex With C] albuterol sulfate 2.5 mg CONTINUOUS NEBULIZATION QID 01/05/21 01/05/21 History Patient History Medical History Chronic bronchitis Chronic respiratory failure with hypoxia, on home O2 therapy Chronic systolic dysfunction of right ventricle COPD (chronic obstructive pulmonary disease) Diastolic CHF, chronic HTN (hypertension) Lung mass Patient is Alevism Pulmonary nodule, right "last CT in 2010 revealed R lung nodule, recommended FNA or PET, patient refused further work up" Sciatica Venous stasis dermatitis of left lower extremity Surgical History History of colonoscopy History of D&C History of tubal ligation Family History Other Family history non-contributory Social History Smoking Status: Never smoker Second Hand Exposure: No; Hx Alcohol Use: No Hx Substance Use: No Preferred Language: Turkish Communication Ability: Effective Seed Sorter Required: No Beliefs That Will Affect Care: None marital status: Current Living Situation: Family Current Living Situation Comment: at [facility] for rehab Feels Safe at Home: Yes Assistive Devices: Oxygen - Continuous Review of Systems Review of Systems: All systems reviewed & are unremarkable except as noted in HPI & below Physical Exam Constitutional: WD/WN, vitals as above no acute distress Eyes: PERRL, conjunctivae normal, anicteric sclerae Neck: trachea midline, no thyromegaly Thyroid: normal thyroid Respiratory: + tachypneic and + pursed lip breathing Auscultation: + crackles and + rhonchi Cardiovascular: Rate/Rhythm: regular rhythm and + tachycardic Heart Sounds: no murmur Vessels: no JVD Extremities: + edema (1+ pretibial edema with chronic stasis changes. Right leg wrapped) Gastrointestinal (Abdomen): normal bowel sounds, soft, nontender, no hepatosplenomegaly Musculoskeletal: no cyanosis or clubbing, extremities motor strength 5/5 Skin: no rashes, warm and dry Neurologic: PERRL, EOMI, accommodation nl, no face palsy, no dysarthria Psychiatric: A+Ox3, euthymic affect Results & Data ([facility]) Vital Signs (Past 12 Hours) Vital Signs Temp Pulse Resp BP Pulse Ox 01/06/21 08:08 36.5 C 95 H 24 137/90 90 01/06/21 03:28 37.0 C 104 H 18 127/82 90 01/06/21 00:40 102 H 18 90 01/05/21 23:36 36.6 C 99 H 20 128/89 90 Laboratory Results 01/06/21 01/06/21 01/05/21 Range/Units 05:35 05:35 16:11 WBC 5.77 (4.8-10.8) K/uL RBC 5.37 (4.2-5.4) M/uL Hgb 17.0 H (12.0-16.0) g/dL Hct 49.9 H (37-47) % MCV 92.9 (80-100) fL MCH 31.7 (25-34) pg MCHC 34.1 (32-36) g/dL RDW Std Deviation 53.2 H (36.4-46.3) fL RDW Coeff of Giuliana 15.7 H (11.5-14.5) % Plt Count 128 L (130-400) K/uL Immature Gran % (Auto) % Neut % (Auto) % Lymph % (Auto) % [place] % (Auto) % Eos % (Auto) % Baso % (Auto) % Neut # (Auto) (1.4-6.5) K/uL Lymph # (Auto) (1.2-3.4) K/uL [place] # (Auto) (0.11-0.59) K/uL Eos # (Auto) (0-0.5) K/uL Baso # (Auto) (0-0.2) K/uL Immature Gran # (Auto) (0.00-0.02) K/uL Platelet Estimate SN (Normal) PT (9.0-12.0) Seconds INR (0.9-1.1) APTT (21.0-31.0) Seconds PTT Ratio Sodium 140 (136-145) mmol/L Potassium 3.8 (3.5-5.1) mmol/L Chloride 106 (98-107) mmol/L Carbon Dioxide 25 (21-32) mmol/L Anion Gap 9.0 (3-11) BUN 21 H (7-18) mg/dl Creatinine 1.21 H (0.6-1.2) mg/dl Est Cr Clr Drug Dosing 35.3 ml/min Est GFR ( Amer) 50.7 ml/min Est GFR (Non-Af Amer) 43.7 ml/min BUN/Creatinine Ratio 17.5 (10-20) Glucose 156 H (70-99) mg/dl Lactate (0.4-2.0) mmol/L Calcium 8.9 (8.5-10.1) mg/dl Phosphorus 3.6 (2.5-4.9) mg/dl Magnesium 1.9 (1.8-2.4) mg/dl Total Bilirubin 1.3 H (0.2-1) mg/dl AST 26 (15-37) U/L ALT 24 (12-78) U/L Alkaline Phosphatase 100 (45-117) U/L Troponin I (0-0.045) ng/ml NT-Pro-B Natriuret Pep (0-900) pg/ml Total Protein 6.8 (6.4-8.2) gm/dl Albumin 3.1 L (3.4-5.0) gm/dl Globulin 3.7 (2.5-4.0) gm/dl Albumin/Globulin Ratio 0.8 L (0.9-2) Procalcitonin 0.05 (0-0.5) ng/ml Specimen Hemolysis COVID-19 Eval Order SARS-CoV-2 (PCR) (Negative) 01/05/21 01/05/21 01/05/21 Range/Units 13:18 13:10 13:10 WBC (4.8-10.8) K/uL RBC (4.2-5.4) M/uL Hgb (12.0-16.0) g/dL Hct (37-47) % MCV (80-100) fL MCH (25-34) pg MCHC (32-36) g/dL RDW Std Deviation (36.4-46.3) fL RDW Coeff of Giuliana (11.5-14.5) % Plt Count (130-400) K/uL Immature Gran % (Auto) % Neut % (Auto) % Lymph % (Auto) % [place] % (Auto) % Eos % (Auto) % Baso % (Auto) % Neut # (Auto) (1.4-6.5) K/uL Lymph # (Auto) (1.2-3.4) K/uL [place] # (Auto) (0.11-0.59) K/uL Eos # (Auto) (0-0.5) K/uL Baso # (Auto) (0-0.2) K/uL Immature Gran # (Auto) (0.00-0.02) K/uL Platelet Estimate (Normal) PT (9.0-12.0) Seconds INR (0.9-1.1) APTT (21.0-31.0) Seconds PTT Ratio Sodium (136-145) mmol/L Potassium (3.5-5.1) mmol/L Chloride (98-107) mmol/L Carbon Dioxide (21-32) mmol/L Anion Gap (3-11) BUN (7-18) mg/dl Creatinine (0.6-1.2) mg/dl Est Cr Clr Drug Dosing ml/min Est GFR ( Amer) ml/min Est GFR (Non-Af Amer) ml/min BUN/Creatinine Ratio (10-20) Glucose (70-99) mg/dl Lactate 1.5 (0.4-2.0) mmol/L Calcium (8.5-10.1) mg/dl Phosphorus (2.5-4.9) mg/dl Magnesium (1.8-2.4) mg/dl Total Bilirubin (0.2-1) mg/dl AST (15-37) U/L ALT (12-78) U/L Alkaline Phosphatase (45-117) U/L Troponin I (0-0.045) ng/ml NT-Pro-B Natriuret Pep (0-900) pg/ml Total Protein (6.4-8.2) gm/dl Albumin (3.4-5.0) gm/dl Globulin (2.5-4.0) gm/dl Albumin/Globulin Ratio (0.9-2) Procalcitonin (0-0.5) ng/ml Specimen Hemolysis COVID-19 Eval Order Covid19 at [facility] SARS-CoV-2 (PCR) NEGATIVE (Negative) 01/05/21 01/05/21 01/05/21 Range/Units 12:31 12:31 12:31 WBC 7.69 (4.8-10.8) K/uL RBC 5.45 H (4.2-5.4) M/uL Hgb 17.3 H (12.0-16.0) g/dL Hct 50.7 H (37-47) % MCV 93.0 (80-100) fL MCH 31.7 (25-34) pg MCHC 34.1 (32-36) g/dL RDW Std Deviation 53.4 H (36.4-46.3) fL RDW Coeff of Giuliana 15.9 H (11.5-14.5) % Plt Count 151 (130-400) K/uL Immature Gran % (Auto) 0.3 % Neut % (Auto) 73.6 % Lymph % (Auto) 16.6 % [place] % (Auto) 8.5 % Eos % (Auto) 0.5 % Baso % (Auto) 0.5 % Neut # (Auto) 5.66 (1.4-6.5) K/uL Lymph # (Auto) 1.28 (1.2-3.4) K/uL [place] # (Auto) 0.65 H (0.11-0.59) K/uL Eos # (Auto) 0.04 (0-0.5) K/uL Baso # (Auto) 0.04 (0-0.2) K/uL Immature Gran # (Auto) 0.02 (0.00-0.02) K/uL Platelet Estimate (Normal) PT 12.3 H (9.0-12.0) Seconds INR 1.2 H (0.9-1.1) APTT 28.8 (21.0-31.0) Seconds PTT Ratio 1.1 Sodium 139 (136-145) mmol/L Potassium 3.7 (3.5-5.1) mmol/L Chloride 104 (98-107) mmol/L Carbon Dioxide 26 (21-32) mmol/L Anion Gap 10.0 (3-11) BUN 21 H (7-18) mg/dl Creatinine 1.13 (0.6-1.2) mg/dl Est Cr Clr Drug Dosing 38.7 ml/min Est GFR ( Amer) 55.1 ml/min Est GFR (Non-Af Amer) 47.5 ml/min BUN/Creatinine Ratio 18.6 (10-20) Glucose 148 H (70-99) mg/dl Lactate (0.4-2.0) mmol/L Calcium 9.4 (8.5-10.1) mg/dl Phosphorus (2.5-4.9) mg/dl Magnesium 2.1 (1.8-2.4) mg/dl Total Bilirubin 1.5 H (0.2-1) mg/dl AST 34 (15-37) U/L ALT 24 (12-78) U/L Alkaline Phosphatase 110 (45-117) U/L Troponin I < 0.015 (0-0.045) ng/ml NT-Pro-B Natriuret Pep 7993 H (0-900) pg/ml Total Protein 7.1 (6.4-8.2) gm/dl Albumin 3.4 (3.4-5.0) gm/dl Globulin 3.7 (2.5-4.0) gm/dl Albumin/Globulin Ratio 0.9 (0.9-2) Procalcitonin (0-0.5) ng/ml Specimen Hemolysis COVID-19 Eval Order SARS-CoV-2 (PCR) (Negative) Diagnostic Findings EKG on admission demonstrated normal sinus rhythm with right bundle branch block and inferior T wave abnormality Compared with prior EKG in 2019, RBBB has replaced incomplete right bundle bra nch block Chest xray on admission: IMPRESSION: 1. Cardiomegaly with pulmonary artery hypertension. 2. Emphysema with progressive reticular interstitial opacities. Findings may represent progressive fibrosis or mild pulmonary edema. An interstitial pneumonitis is considered less likely. Chest CT report reviewed from admission: 1. Emphysema with mild bibasilar atelectasis. 2. Low attenuating ovoid solid nodule of the basal right lower lobe measuring 1.2 x 0.8 cm has decreased in size from 2019 suggestive of benign etiology. Mild associated adjacent mucous plugging. 3. Cardiomegaly with pulmonary artery hypertension. 4. Gallbladder distention with cholelithiasis. 5. Additional findings as above. Medications Administered Medications Combivent Respimat 2 puff INHALATION QID PRN 03/10/19 [History Confirmed 01/05/21] albuterol sulfate [Ventolin HFA] 2 puff INHALATION Q4H PRN 10/06/18 [History Confirmed 01/05/21] acetaminophen 1,000 mg PO Q8H PRN #60 tab 12/11/18 [Rx Confirmed 01/05/21] furosemide 40 mg PO DAILY #30 tab 12/11/18 [Rx Confirmed 01/05/21] aspirin 81 mg tablet,delayed release 81 mg PO DAILY 09/23/20 [History Confirmed 01/05/21] cholecalciferol (vitamin D3) 125 mcg (5,000 unit) capsule 125 mcg PO DAILY 09/23/20 [History Confirmed 01/05/21] collagenase clostridium histo. 250 unit/gram topical ointment 1 applic TOPICAL DAILY #30 g 09/23/20 [Rx Confirmed 01/05/21] potassium gluconate 595 mg (99 mg) tablet 595 mg PO DAILY 09/23/20 [History Confirmed 01/05/21] B-complex with vitamin C [Vitamin B Complex With C] 1 cap PO DAILY 01/05/21 [History Confirmed 01/05/21] albuterol sulfate 2.5 mg CONTINUOUS NEBULIZATION QID 01/05/21 [History Confirmed 01/05/21] Home Medications Acetaminophen (Acetaminophen 325 Mg Tab) 650 mg PO Q4H PRN PRN Reason: Moderate Pain Stop: 02/04/21 18:26 Aspirin (Aspirin 81 Mg Ectab) 81 mg PO DAILY ARNOLDO Stop: 02/05/21 08:59 Last Admin: 01/06/21 08:57 Dose: Not Given Documented by: Azithromycin (Azithromycin 250 Mg Tab) 250 mg PO QAM [facility] Stop: 01/12/21 18:26 Last Admin: 01/06/21 08:57 Dose: Not Given Documented by: Furosemide (Furosemide 40 Mg/4 Ml Vial) 40 mg IV BID [facility] Stop: 02/04/21 20:59 Last Admin: 01/06/21 08:59 Dose: 40 mg Documented by: Guaifenesin (Guaifenesin 600 Mg Tabcr) 600 mg PO Q12 [facility] Stop: 02/04/21 20:59 Last Admin: 01/06/21 08:51 Dose: 600 mg Documented by: Methylprednisolone 40 mg/ (Syringe) 0.64 mls @ 1.5 mls/min IV Q8H ARNOLDO Stop: 02/04/21 19:59 Last Admin: 01/06/21 03:52 Dose: 1.5 mls/min Documented by: Vancomycin HCl 1,000 mg/ (Sodium Chloride) 270 mls @ 200 mls/hr IV Q24H ARNOLDO; Protocol Stop: 01/21/21 02:59 Ipratropium [place] (Ipratropium [place] Neb Soln 0.02% 2.5 Ml Vial) 0.5 mg INH Q6R ARNOLDO Stop: 02/04/21 18:59 Last Admin: 01/06/21 07:35 Dose: Not Given Documented by: Levalbuterol HCl (Levalbuterol 1.25mg/0.5ml Neb) 1.25 mg INH Q6R ARNOLDO Stop: 02/04/21 18:59 Last Admin: 01/06/21 07:36 Dose: Not Given Documented by: Miscellaneous Information (Vancomycin Consult Active) 1 ea N/A UD PRN PRN Reason: Consult Stop: 02/05/21 02:10 Ondansetron HCl (Ondansetron Inj 2 Mg/Ml 2 Ml Vial) 4 mg IV Q4H PRN PRN Reason: Nausea And Vomiting Stop: 02/04/21 18:26 Prednisone (Prednisone 20 Mg Tab) 40 mg PO DAILY [facility] Stop: 02/05/21 08:59 Vitamin B Complex (Vitamin B Complex Tab) 1 tab PO DAILY ARNOLDO Stop: 02/05/21 08:59 Last Admin: 01/06/21 08:52 Dose: 1 tab Documented by: Vitamin D (Cholecalciferol 1,000 Units 25 Mcg Tab) 5,000 units PO DAILY [facility] Stop: 02/05/21 08:59 Last Admin: 01/06/21 08:52 Dose: 5,000 units Documented by: (1) Acute and chronic respiratory failure Respiratory failure complication: hypoxia Qualified Code(s): J96.21 - Acute and chronic respiratory failure with hypoxia
[2021-01-06] MEDS ORDERED: ALBUTEROL HFA 8 GM INHALER INH SCH (11:00)
[2021-01-06] MEDS ORDERED: IPRATROPIUM BROMIDE HFA INHALER INH SCH (11:00)
[2021-01-06] MEDS: SPIRONOLACTONE 12.5 MG TAB PO SCH (11:13)
--- NOTE | 2021-01-06 11:57 | Pulmonary Consultation ---
Date of Consultation January 06, 2021 Assessment & Plan (1) COPD (chronic obstructive pulmonary disease): (2) Pulmonary hypertension: (3) Hypoxia: (4) Acute and chronic respiratory failure: Impression: 75-year-old female with radiographically advanced COPD although PFTs are not available to review admitted with shortness of breath which is likely multifactorial. She does have known pulmonary hypertension which is likely WHO group 2 and 3. Repeat echocardiogram is pending. She does have gram-positive cocci in chains on 1 out of 2 blood cultures. There is no discrete infiltrate noted on the CT scan suggestive of pneumonia. Recommendations: 1. COPD: We will place the patient on Perforomist and budesonide. Continue albuterol Atrovent rescue nebs as needed. Continue azithromycin for potential COPD exacerbation. She is not really wheezing so I do not think she needs additional systemic steroids currently. Discontinue HFA and transition to DuoNebs as needed. Consideration of outpatient PFTs may be beneficial. Check follow up ABG. Pulmonary rehabilitation may also be a consideration. 2. Pulmonary hypertension: Await follow-up echocardiogram. Diuresis per cardiology. Do not recommend RHC given bacteremia and likely group 2-3 pul htn. Could consider outpatient PSG. 3. Chronic hypoxemic respiratory failure: We will check repeat blood gas. Given the fact that her hemoglobin and hematocrit are elevated, I suspect that she has been more profoundly hypoxemic for a sustained period of time. She may require more oxygen than what she reported previously. 4. Positive blood cultures: Per primary service. Again I do not see a clear source on her CT scan for a pulmonary etiology. She does have wounds of the lower extremity which may be a portal of entry. She is on a azithromycin and vancomycin. Would recommend Rocephin pending sensitivity and cultures. 5. Respiratory failure complication: hypoxia Qualified Code(s): J96.21 - Acute and chronic respiratory failure with hypoxia History of Present Illness Attending Physician: Sivakumar Askew MD History of Present Illness Asked by hospitalist to evaluate this patient with shortness of breath and COPD as well as pulmonary hypertension. History is obtained from discussion with the patient as well as review the electronic medical record. Patient is a 75-year-old female with a 90-84-[id number]-year history of tobacco abuse who quit smoking about 40 years ago. She was last seen by pulmonary back in 2018 when she was admitted with a COPD exacerbation. Her last PFTs were performed over 20 years ago and are not available to review. The patient has been on a variety of inhalers. She was to follow-up in the pulmonary clinic after her hospitalization in 2019 but did not make the appointment. The patient resides at home with her son and was brought to the emergency room yesterday with complaints of shortness of breath going on for the last several weeks. She is on 5 to 6 L of oxygen at baseline. She did report an intermittent cough but no chest pain palpitations. She has noted some lower extremity edema. She reports compliant with her Lasix and has been using Wixela at home. In the emergency room she was given Lasix Solu-Medrol duo nebs and Nitropaste. Her BNP was elevated. Oxygen requirements were increased up to 7 L she was admitted to the floor. Cardiology consultation has been obtained as well. The patient thinks that her breathing is slightly better today but she still has dyspnea with conversation. She is not wheezing currently and appears to be moving air appropriately. Allergies Allergy/AdvReac Type Severity Reaction Status Date / Time No Known Allergies Allergy Verified 01/05/21 15:08 Home Medications Medication Instructions Recorded Confirmed Type Combivent Respimat 2 puff INHALATION QID PRN 10/06/18 01/05/21 History albuterol sulfate [Ventolin HFA] 2 puff INHALATION Q4H PRN 10/06/18 01/05/21 History acetaminophen 1,000 mg PO Q8H PRN #60 tab 12/11/18 01/05/21 Rx furosemide 40 mg PO DAILY #30 tab 12/11/18 01/05/21 Rx aspirin 81 mg tablet,delayed 81 mg PO DAILY 09/23/20 01/05/21 History release cholecalciferol (vitamin D3) 125 125 mcg PO DAILY 09/23/20 01/05/21 History mcg (5,000 unit) capsule collagenase clostridium histo. 250 1 applic TOPICAL DAILY #30 g 09/23/20 01/05/21 Rx unit/gram topical ointment potassium gluconate 595 mg (99 mg) 595 mg PO DAILY 09/23/20 01/05/21 History tablet B-complex with vitamin C [Vitamin 1 cap PO DAILY 01/05/21 01/05/21 History B Complex With C] albuterol sulfate 2.5 mg CONTINUOUS NEBULIZATION QID 01/05/21 01/05/21 History Patient History Medical History Chronic bronchitis Chronic respiratory failure with hypoxia, on home O2 therapy Chronic systolic dysfunction of right ventricle COPD (chronic obstructive pulmonary disease) Diastolic CHF, chronic HTN (hypertension) Lung mass Patient is Sikhism Pulmonary nodule, right "last CT in 2010 revealed R lung nodule, recommended FNA or PET, patient refused further work up" Sciatica Venous stasis dermatitis of left lower extremity Surgical History History of colonoscopy History of D&C History of tubal ligation Family History Other Family history non-contributory Social History Smoking Status: Never smoker Second Hand Exposure: No; Hx Alcohol Use: No Hx Substance Use: No Preferred Language: Arabic Communication Ability: Effective 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 No additions or deletions. Physical Exam Constitutional: + frail appearing Appears older than stated age Neck: trachea midline, no thyromegaly Respiratory: + labored breathing; no respiratory distress Auscultation: no crackles and no wheezes Cardiovascular: Rate/Rhythm: + tachycardic Heart Sounds: normal S1 and normal S2; no murmur Palpation: no heave Gastrointestinal (Abdomen): normal bowel sounds, soft, nontender, no hepatosplenomegaly Musculoskeletal: Extremities: extremities normal to inspection Skin: no rashes, warm and dry Neurologic: Nonfocal exam Lymphatic: no cervical lymphadenopathy Results & Data Results & Data ([place]) Vital Signs (Past 12 Hours) Vital Signs Temp Pulse Pulse Resp BP Pulse Ox 01/06/21 11:06 97 H 01/06/21 11:01 97 H 92 01/06/21 08:08 36.5 C 95 H 24 137/90 90 01/06/21 03:28 37.0 C 104 H 18 127/82 90 01/06/21 00:40 102 H 18 90 01/05/21 23:36 36.6 C 99 H 20 128/89 90 Laboratory Results 01/06/21 05:35 01/06/21 05:35 BNP 7993 Troponin negative Procalcitonin 0.05 Covid test negative last [facility] 11/2018 7.49/32/34 Blood cultures 1 out of 2 growing gram-positive cocci in chains. 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 CT of the chest 01/15/2021 demonstrated significant paraseptal and centrilobular emphysematous changes. Pulmonary nodule noted at the right lung base appears stable compared to previous. No consolidation. Atherosclerotic vascular calcifications noted throughout as well as calcifications within the airways. Echo from November 2018 showed an EF of 70% with flattened septum consistent with RV pressure overload and dilatation of the right ventricle. PA systolic pressure e stimated at 60 however right atrial pressure was only 3. No significant valvular dysfunction noted. No comment on diastolic dysfunction PG Care Time/CCT Total # of Minutes Spent Total Time Spent with Patient: Total time spent is greater than 50% in coordination of care (as documented) at patient's floor/unit and/or counseling patient: Coding Level of Care Code 16018 Initial Inpt Care Lvl 3 Diagnoses COPD (chronic obstructive pulmonary disease) J44.9 Pulmonary hypertension I27.20 Hypoxia R09.02 Acute and chronic respiratory failure J96.21 Respiratory failure complication: hypoxia
[2021-01-06] MEDS: cefTRIAXone SODIUM 1,000 MG in DEXTROSE 5% 50 ML IV SCH (12:22)
[2021-01-06] MEDS: UMECLIDINIUM BROMIDE 62.5MCG/BLISTER 7 PUFFS/INHALER INH SCH (12:22)
[2021-01-06 13:06] LABS: Base Excess ABG -0.1 mEq/L (-9-1.8); HCO3 ABG 23 mmol/L (19-24); PCO2 ABG 33 mmHg (35-46); PO2 ABG 75 mmHg (80-95); pH ABG 7.46 (7.35-7.45)
[2021-01-06 13:08] LABS: Allen Test Pos (Pos)
[2021-01-06] MEDS: FORMOTEROL 20 MCG/2 ML VIAL NEB SCH ×2 (13:56→19:08)
[2021-01-06] MEDS: BUDESONIDE 0.5 MG/2 ML VIAL (PULMICORT) NEB SCH (19:08)
[2021-01-07] MEDS: VANCOMYCIN HCL 1,000 MG in SODIUM CHLORIDE 0.9% 250 ML IV SCH (03:12)
[2021-01-07 05:53] LABS: Mean Corpuscular Hgb Conc 33.8 g/dL (32-36)
--- NOTE | 2021-01-07 06:07 | Electrocardiogram Report ---
Test Reason : Blood Pressure : / mmHG Vent. Rate : 097 BPM Atrial Rate : 097 BPM P-R Int : 160 ms QRS Dur : 116 ms QT Int : 394 ms P-R-T Axes : 067 119 -01 degrees QTc Int : 500 ms Normal sinus rhythm Right bundle branch block Septal infarct , age undetermined Abnormal ECG When compared with ECG of 04-DEC-2018 06:56, Questionable change in QRS duration Septal infarct is now Present Premature atrial complexes are no longer Present Confirmed by Danish Wade ([id number]) on 01/07/2021 6:07:08 AM Referred By: REFERRED SELF Confirmed By:Danish Wade
[2021-01-07 06:45] LABS: Hematocrit (blood only) 50.6 % (37-47); Hemoglobin 17.1 g/dL (12.0-16.0); Mean Corpuscular Volume 91.8 fL (80-100); RDW Coefficient of Variation 15.8 % (11.5-14.5); RDW Standard Deviation 53.7 fL (36.4-46.3); Red Blood Count 5.51 M/uL (4.2-5.4); White Blood Count 14.51 K/uL (4.8-10.8)
[2021-01-07 06:51] LABS: Albumin Globulin Ratio 0.9 (0.9-2); Albumin Level 3.4 gm/dl (3.4-5.0); BUN Creatinine Ratio 28.1 (10-20); Bilirubin,Total 0.9 mg/dl (0.2-1); Calcium 8.6 mg/dl (8.5-10.1); Creatinine Clr Calc Pharmacy 41.9 ml/min; Est GFR (African American) 61.6 ml/min; Est GFR (Non-African American) 53.1 ml/min; Globulin 3.6 gm/dl (2.5-4.0); Magnesium 2.3 mg/dl (1.8-2.4); Phosphorus 3.6 mg/dl (2.5-4.9); Potassium 4.4 mmol/L (3.5-5.1)
[2021-01-07 07:01] LABS: Platelet Count 144 K/uL (130-400)
[2021-01-07] MEDS: BUDESONIDE 0.5 MG/2 ML VIAL (PULMICORT) NEB SCH ×2 (07:12→19:57)
[2021-01-07] MEDS: FORMOTEROL 20 MCG/2 ML VIAL NEB SCH ×2 (07:12→19:57)
[2021-01-07] MEDS: AZITHROMYCIN 250 MG TAB PO SCH (08:04)
[2021-01-07] MEDS: VITAMIN B COMPLEX TAB PO SCH (08:04)
[2021-01-07] MEDS: guaiFENesin 600 MG TABCR PO SCH ×2 (08:04→20:40)
[2021-01-07] MEDS: CHOLECALCIFEROL 1,000 UNITS 25 MCG TAB PO SCH (08:05)
[2021-01-07] MEDS: UMECLIDINIUM BROMIDE 62.5MCG/BLISTER 7 PUFFS/INHALER INH SCH (08:06)
[2021-01-07] MEDS: SPIRONOLACTONE 12.5 MG TAB PO SCH ×2 (08:06→20:42)
[2021-01-07] MEDS: ASPIRIN 81 MG ECTAB PO SCH (08:06)
[2021-01-07] MEDS: FUROSEMIDE 40 MG/4 ML VIAL IV SCH ×2 (08:28→20:42)
--- NOTE | 2021-01-07 08:54 | Pulmonology Progress Note ---
Date of Service January 07, 2021 Assessment & Plan (1) COPD (chronic obstructive pulmonary disease): (2) Pulmonary hypertension: (3) Hypoxia: (4) Acute and chronic respiratory failure: Impression: 75-year-old female with radiographically advanced COPD although PFTs are not available to review admitted with shortness of breath which is likely multifactorial. She does have known pulmonary hypertension which is likely WHO group 2 and 3. Repeat echocardiogram does show severe pulmonary hypertension but now left ventricular ejection fraction is down to 30 to 35%. She does have beta Streptococcus on 1 out of 2 blood cultures. There is no discrete infiltrate noted on the CT scan suggestive of pneumonia. Recommendations: 1. COPD: Continue Perforomist and budesonide. Continue albuterol Atrovent rescue nebs as needed. Continue azithromycin for potential COPD exacerbation. She is not really wheezing so I do not think she needs additional systemic steroids currently. Consideration of outpatient PFTs may be beneficial. Follow-up ABG demonstrated no evidence of hypercarbia. Pulmonary rehabilitation may also be a consideration. 2. Pulmonary hypertension: Severe pulmonary hypertension but now EF is also reduced. Additional work-up at this point time would include right and left heart catheterizations with assessment of LVEDP and possible oxygen/vasodilator challenge. Dont think this can be performed here. Unclear if this would change management manager currently. Would be reluctant to consider empiric pulmonary vasodilators and patient with likely significant components of group 2 and group 3 pulmonary hypertension without right heart cath numbers. Can continue diure tics as tolerated by kidney function. 3. Chronic hypoxemic respiratory failure: Given the fact that her hemoglobin and hematocrit are elevated, I suspect that she has been more profoundly hypoxemic for a sustained period of time. This may have contributed to her elevated PA pressures. She may require more oxygen than what she reported previously. 4. Streptococcal bacteremia: Rocephin should be adequate coverage. Per primary service We will continue to follow with you. Feel free to contact us if we can be of additional assistance Respiratory failure complication: hypoxia Qualified Code(s): J96.21 - Acute and chronic respiratory failure with hypoxia Admission and Anticipated Discharge Date Admission Date: January 05, 2021 Subjective Patient seen sitting up in bed eating breakfast. She appears to be less dyspneic than yesterday. She reports that she may feel slightly better with regards to her breathing. She continues to cough and feels that the mucus is thick and tenacious and she is having difficulty expectorating it. She not had any fevers or chills overnight. No significant wheezing. She believes the nebulizers may be beneficial. Review of Systems Review of Systems: All systems reviewed & are unremarkable except as noted in HPI & below Physical Exam Constitutional: + frail appearing Neck: trachea midline, no thyromegaly Respiratory: + labored breathing; no respiratory distress Auscultation: no crackles and no wheezes Cardiovascular: Rate/Rhythm: + tachycardic Heart Sounds: normal S1 and normal S2; no murmur Palpation: no heave Gastrointestinal (Abdomen): normal bowel sounds, soft, nontender, no hepatosplenomegaly Musculoskeletal: Extremities: extremities normal to inspection Skin: no rashes, warm and dry Lymphatic: no cervical lymphadenopathy Results & Data Results & Data ([facility]) Vital Signs (Past 12 Hours) Vital Signs Temp Pulse Resp BP Pulse Ox 01/07/21 07:15 91 H 20 93 01/07/21 06:45 36.7 C 90 22 139/108 H 92 01/07/21 04:09 36.6 C 85 18 148/103 H 91 01/06/21 23:59 36.7 C 94 H 16 142/98 H 93 01/06/21 22:50 36.9 C 101 H 20 142/98 H 90 Laboratory Results 01/07/21 05:22 01/07/21 05:22 01/06/21 12:51 ABG pH 7.46 H ABG pCO2 33 L ABG pO2 75 L ABG HCO3 23 ABG O2 Saturation 96.0 H ABG Base Excess -0.1 Blood cultures 1 out of 2 group B beta strep Diagnostic Findings Echo from today showed an EF of 35 to 40% with flattened septum. Right atrium is severely dilated with severe pulmonary hypertension. PG Care Time/CCT Total # of Minutes Spent Total Time Spent with Patient: Total time spent is greater than 50% in coordination of care (as documented) at patient's floor/unit and/or counseling patient: Coding Level of Care Code 22601 Subseq Hosp Care Lvl 3 Diagnoses COPD (chronic obstructive pulmonary disease) J44.9 Pulmonary hypertension I27.20 Hypoxia R09.02 Acute and chronic respiratory failure J96.21 Respiratory failure complication: hypoxia
--- NOTE | 2021-01-07 09:02 | Hospitalist Progress Note ---
Date of Service January 07, 2021 Assessment & Plan (1) Acute on chronic diastolic (congestive) heart failure: -Admit to telemetry -IV Lasix 60 mg administered in the ER, now on 40 IV lasix bid, responding well -Spironolactone also added by cardiology -continue to monitor strict I's/O's, daily weights, Home dosing of lasix 40 mg PO BID. - Pt reports her dry weight is 148, does not weigh herself daily, admits to worsening edema in BLE. On admission is 148 lbs - however she may not know her weight and answer unreliable? - BNP is ~8000 on admission. - 2 D echo ordered - Right ventricle is severely dilated. Right ventricular systolic function is severely reduced. Left ventricular is normal in size. Flattened septum is consistent with RV pressure overload. EF 35 to 40%. Left atrial size is normal. Right atrium is severely dilated. There is moderate to severe tricuspid regurg. Severe pulmonary hypertension. - Cardiology consulted -continue diuresis with IV Lasix, spironolactone added - CXR does not show infiltrate or specific fluid overload although she has distinct crackles on exam. CT chest noncontrast obtained, see below. (2) Acute and chronic respiratory failure: - Hx of such, on admission requiring 7 L compared to baseline of 5L at rest and 6 on exertion - Diuresis as above - Treated with Solu-Medrol, duo nebs for possibility of COPD exacerbation underlying. She reports that humidity normally does worsen her COPD. Pulmonary medicine consulted (3) COPD (chronic obstructive pulmonary disease): -COPD/emphysema/restrictive lung disease -Patient denies using albuterol nebulizers at home recently, is using Ventolin HFA and Combivent however is not using spacer as she is lost it. Encourage shaista vu son trying to find it or consider replacement spacer prior to DC. -Solu-Medrol 60 mg given in the ER, will continue with prednisone 40 mg daily - Reviewed CXR, checking CT chest - Check Procal -Started azithromycin for possible COPD exacerbation -CT chest - IMPRESSION: 1. Emphysema with mild bibasilar atelectasis. 2. Low attenuating ovoid solid nodule of the basal right lower lobe measuring 1.2 x 0.8 cm has decreased in size from 2019 suggestive of benign etiology. Mild associated adjacent mucous plugging. 3. Cardiomegaly with pulmonary artery hypertension. 4. Gallbladder distention with cholelithiasis. 5. Additional findings as above. Pulmonary medicine consulted - Perforomist and budesonide. Continue albuterol Atrovent rescue nebs as needed. Continue azithromycin for potential COPD exacerbation. She is not really wheezing so I do not think she needs additional systemic steroids currently. Discontinue HFA and transition to DuoNebs as needed. Consideration of outpatient PFTs may be beneficial. Bacteremia -Overnight gram-positive cocci noted in one of the blood cultures, started overnight on vancomycin. group B strep -continue Rocephin for now, stop vancomycin There is no discrete infiltrate noted on the CT scan suggestive of pneumonia, per pulm. Started Rocephin pending sensitivities and cultures. (Patient has some wounds of the lower extremity which may be a portal of entry - follows with wound care) Blood cultures repeated Wound care consulted (4) HTN (hypertension): - Lasix as above, not on other antihypertensives (5) HLD (hyperlipidemia): - Does not take statin therapy, consider am lipid panel (6) Pulmonary hypertension: - Stable, presumed, rechecking echo as above to help determine although (7) Venous stasis ulcer of right lower leg with edema of right lower leg: - Following with wound clinic as outpatient. 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 Most recent wound culture cleared. Wound care consult. DVT ppx: - gildardo melaras CODE: DNR/DNI Dispo: From home, likely to remain in the hospital x 1-2 days Admission and Anticipated Discharge Date Admission Date: January 05, 2021 Subjective Patient seen in follow-up of acute on chronic respiratory failure with hypoxia Currently patient sitting up in the bed, in no acute distress Feeling better today Denies any fever chills, chest pain, abdominal pain, nausea or vomiting Echo obtained, cardiology and pulmonary medicine consulted Review of Systems Review of Systems: All systems reviewed & are unremarkable except as noted in HPI & below Constitutional: no fever and no chills Respiratory: + dyspnea (improved) Cardiovascular: no chest pain and no palpitations Gastrointestinal: no abdominal pain, no nausea and no vomiting Physical Exam Physical Exam: General: awake, alert, no apparent distress, on 4-5L of suppl. O2 Head: Normocephalic, atraumatic ENT: PERRL, EOMI, no pharyngeal exudate, endentulous, mucous membranes moist Chest: + mild bibasilar crackles, rhonchi (much improved from previous exam) Cardiac: HR 90-100, normal peripheral pulses, good capillary refill Abdominal: NABS x 4 quadrants, soft, nondistended, nontender to palpation, no rebound or guarding Extremities: 1-2 + pitting peripheral edema BLE to knees, right lower ankle wrapped in kerlix, anterior killian wound healed over, right posterior ankle wound healing, no surrounding erythema, no drainage, calves nontender to palpation Psych: Normal mood and affect Neuro: AAO x 3, strength intact bilaterally and rated 5/5, no motor deficits, speech is clear, no peripheral sensory deficits Results & Data Results & Data ([facility]) Vital Signs (Past 12 Hours) Vital Signs Temp Pulse Resp BP Pulse Ox 01/07/21 07:15 91 H 20 93 01/07/21 06:45 36.7 C 90 22 139/108 H 92 01/07/21 04:09 36.6 C 85 18 148/103 H 91 01/06/21 23:59 36.7 C 94 H 16 142/98 H 93 01/06/21 22:50 36.9 C 101 H 20 142/98 H 90 Laboratory Results 01/07/21 01/07/21 01/07/21 Range/Units 07:07 05:22 05:22 WBC 14.51 H (4.8-10.8) K/uL RBC 5.51 H (4.2-5.4) M/uL Hgb 17.1 H (12.0-16.0) g/dL Hct 50.6 H (37-47) % MCV 91.8 (80-100) fL MCH 31.0 (25-34) pg MCHC 33.8 (32-36) g/dL RDW Std Deviation 53.7 H (36.4-46.3) fL RDW Coeff of Giuliana 15.8 H (11.5-14.5) % Plt Count 144 (130-400) K/uL ABG pH (7.35-7.45) ABG pCO2 (35-46) mmHg ABG pO2 (80-95) mmHg ABG HCO3 (19-24) mmol/L ABG O2 Saturation (90-95) % ABG Base Excess (-9-1.8) mEq/L Maxwell Test (Pos) Barometric Pressure mm/Hg Oxygen Given Sodium 138 (136-145) mmol/L Potassium 4.4 D (3.5-5.1) mmol/L Chloride 107 (98-107) mmol/L Carbon Dioxide 26 (21-32) mmol/L Anion Gap 5.0 (3-11) BUN 29 H (7-18) mg/dl Creatinine 1.03 (0.6-1.2) mg/dl Est Cr Clr Drug Dosing 41.9 ml/min Est GFR ( Amer) 61.6 ml/min Est GFR (Non-Af Amer) 53.1 ml/min BUN/Creatinine Ratio 28.1 H (10-20) Glucose 131 H (70-99) mg/dl POC Glucose 122 H (70-99) mg/dl Calcium 8.6 (8.5-10.1) mg/dl Phosphorus 3.6 (2.5-4.9) mg/dl Magnesium 2.3 (1.8-2.4) mg/dl Total Bilirubin 0.9 (0.2-1) mg/dl AST 26 (15-37) U/L ALT 27 (12-78) U/L Alkaline Phosphatase 100 (45-117) U/L Total Protein 7.0 (6.4-8.2) gm/dl Albumin 3.4 (3.4-5.0) gm/dl Globulin 3.6 (2.5-4.0) gm/dl Albumin/Globulin Ratio 0.9 (0.9-2) 01/06/21 Range/Units 12:51 WBC (4.8-10.8) K/uL RBC (4.2-5.4) M/uL Hgb (12.0-16.0) g/dL Hct (37-47) % MCV (80-100) fL MCH (25-34) pg MCHC (32-36) g/dL RDW Std Deviation (36.4-46.3) fL RDW Coeff of Giuliana (11.5-14.5) % Plt Count (130-400) K/uL ABG pH 7.46 H (7.35-7.45) ABG pCO2 33 L (35-46) mmHg ABG pO2 75 L (80-95) mmHg ABG HCO3 23 (19-24) mmol/L ABG O2 Saturation 96.0 H (90-95) % ABG Base Excess -0.1 (-9-1.8) mEq/L Maxwell Test Pos (Pos) Barometric Pressure 732.4 mm/Hg Oxygen Given 5 L Sodium (136-145) mmol/L Potassium (3.5-5.1) mmol/L Chloride (98-107) mmol/L Carbon Dioxide (21-32) mmol/L Anion Gap (3-11) BUN (7-18) mg/dl Creatinine (0.6-1.2) mg/dl Est Cr Clr Drug Dosing ml/min Est GFR ( Amer) ml/min Est GFR (Non-Af Amer) ml/min BUN/Creatinine Ratio (10-20) Glucose (70-99) mg/dl POC Glucose (70-99) mg/dl Calcium (8.5-10.1) mg/dl Phosphorus (2.5-4.9) mg/dl Magnesium (1.8-2.4) mg/dl Total Bilirubin (0.2-1) mg/dl AST (15-37) U/L ALT (12-78) U/L Alkaline Phosphatase (45-117) U/L Total Protein (6.4-8.2) gm/dl Albumin (3.4-5.0) gm/dl Globulin (2.5-4.0) gm/dl Albumin/Globulin Ratio (0.9-2) Medications Administered Current Inpatient Medications Acetaminophen (Acetaminophen 325 Mg Tab) 650 mg PO Q4H PRN PRN Reason: Moderate Pain Stop: 02/04/21 18:26 Albuterol (Albut/Ipratrop 3mg/0.5mg Neb 3 Ml Vial) 3 ml NEB Q4R PRN PRN Reason: Dyspnea Stop: 02/05/21 14:59 Aspirin (Aspirin 81 Mg Ectab) 81 mg PO DAILY [facility] Stop: 02/05/21 08:59 Last Admin: 01/07/21 08:06 Dose: Not Given Documented by: Azithromycin (Azithromycin 250 Mg Tab) 250 mg PO QAM [facility] Stop: 01/12/21 18:26 Last Admin: 01/07/21 08:04 Dose: 250 mg Documented by: Budesonide (Budesonide 0.5 Mg/2 Ml Vial (Pulmicort)) 0.5 mg NEB BIDR [facility] Stop: 02/05/21 18:59 Last Admin: 01/07/21 07:12 Dose: 0.5 mg Documented by: Formoterol Fumarate (Formoterol 20 Mcg/2 Ml Vial) 20 mcg NEB BIDR [facility] Stop: 02/05/21 11:59 Last Admin: 01/07/21 07:12 Dose: 20 mcg Documented by: Furosemide (Furosemide 40 Mg/4 Ml Vial) 40 mg IV BID [facility] Stop: 02/04/21 20:59 Last Admin: 01/07/21 08:28 Dose: 40 mg Documented by: Guaifenesin (Guaifenesin 600 Mg Tabcr) 600 mg PO Q12 [facility] Stop: 02/04/21 20:59 Last Admin: 01/07/21 08:04 Dose: 600 mg Documented by: Vancomycin HCl 1,000 mg/ (Sodium Chloride) 270 mls @ 200 mls/hr IV Q24H [facility]; Protocol Stop: 01/21/21 02:59 Last Infusion: 01/07/21 04:35 Dose: Infused Documented by: Ceftriaxone Sodium 1,000 mg/ (Dextrose) 50 mls @ 100 mls/hr IV Q24H [facility]; Protocol Stop: 01/20/21 11:59 Last Infusion: 01/06/21 12:55 Dose: Infused Documented by: Miscellaneous Information (Vancomycin Consult Active) 1 ea N/A UD PRN PRN Reason: Consult Stop: 02/05/21 02:10 Ondansetron HCl (Ondansetron Inj 2 Mg/Ml 2 Ml Vial) 4 mg IV Q4H PRN PRN Reason: Nausea And Vomiting Stop: 02/04/21 18:26 Prednisone (Prednisone 20 Mg Tab) 40 mg PO DAILY [facility] Stop: 02/05/21 08:59 Spironolactone (Spironolactone 12.5 Mg Tab) 12.5 mg PO DAILY [facility] Stop: 02/05/21 10:44 Last Admin: 01/07/21 08:06 Dose: 12.5 mg Documented by: Umeclidinium [place] (Umeclidinium [place] 62.5mcg/Blister 7 Puffs/Inhaler) 1 puffs INH DAILY [facility] Stop: 02/05/21 11:59 Last Admin: 01/07/21 08:06 Dose: 1 puffs Documented by: Vitamin B Complex (Vitamin B Complex Tab) 1 tab PO DAILY [facility] Stop: 02/05/21 08:59 Last Admin: 01/07/21 08:04 Dose: 1 tab Documented by: Vitamin D (Cholecalciferol 1,000 Units 25 Mcg Tab) 5,000 units PO DAILY [facility] Stop: 02/05/21 08:59 Last Admin: 01/07/21 08:05 Dose: 5,000 units Documented by: (1) Acute and chronic respiratory failure Respiratory failure complication: hypoxia Qualified Code(s): J96.21 - Acute and chronic respiratory failure with hypoxia
--- NOTE | 2021-01-07 09:22 | Cardiology Progress Note ---
Date of Service January 07, 2021 Assessment & Plan (1) Acute and chronic respiratory failure: (2) Acute on chronic right-sided congestive heart failure: (3) Pulmonary hypertension: (4) Chronic respiratory failure with hypoxia, on home O2 therapy: (5) Sinus tachycardia: The echocardiogram would indicate the patient has cor pulmonale with severe dilatation and failure of the right heart. Pulmonary's note is appreciated. She still has some fluid on board of her lower extremities. I do not believe we will completely be able to eliminate all the lower extremity edema but I think she is still volume overloaded. She has a nonhealing ulcer on her right killian. Unsure if this is a source of her 1 out of 2 positive blood cultures. In addition to the IV Lasix I will increase her spironolactone. Admission and Anticipated Discharge Date Admission Date: January 05, 2021 Subjective The patient has no new cardiac complaints. Most of the visit was in discussion of her echocardiogram results. Review of Systems Review of Systems: All systems reviewed & are unremarkable except as noted in Subjective Physical Exam Physical Exam: General: no acute distress and stated age Head: normocephalic, no masses, lesions, tenderness or abnormalities Eyes: conjunctiva are pink and non-injected, sclera clear Neck: supple, no adenopathy, no bruits, normal jugular venous pulse, no hepatojugular reflux Chest: normal shape and normal respiratory effort Lungs: clear to auscultation and percussion Cardiac Exam: - regular rate & rhythm, no murmurs gallops or rubs - normal S1, normal S2 Pulses: 2(+) throughout Abdomen: abdomen soft, non-tender, no abnormal masses and no hepatosplenomegaly Musculoskeletal: no gait disturbance, no joint inflammation, no deforming arthritis Extremities: Bilateral lower extremity edema to the knees. Nonhealing ulcer on the right killian. Neuro: grossly normal exam Results & Data ([facility]) Vital Signs (Past 12 Hours) Vital Signs Temp Pulse Resp BP Pulse Ox 01/07/21 07:15 91 H 20 93 01/07/21 06:45 36.7 C 90 22 139/108 H 92 01/07/21 04:09 36.6 C 85 18 148/103 H 91 01/06/21 23:59 36.7 C 94 H 16 142/98 H 93 01/06/21 22:50 36.9 C 101 H 20 142/98 H 90 Laboratory Results Laboratory Results - last 24 hr 01/06/21 01/07/21 01/07/21 12:51 05:22 05:22 WBC 14.51 H RBC 5.51 H Hgb 17.1 H Hct 50.6 H MCV 91.8 MCH 31.0 MCHC 33.8 RDW Std Deviation 53.7 H RDW Coeff of Giuliana 15.8 H Plt Count 144 ABG pH 7.46 H ABG pCO2 33 L ABG pO2 75 L ABG HCO3 23 ABG O2 Saturation 96.0 H ABG Base Excess -0.1 Maxwell Test Pos Barometric Pressure 732.4 Oxygen Given 5 L Sodium 138 Potassium 4.4 D Chloride 107 Carbon Dioxide 26 Anion Gap 5.0 BUN 29 H Creatinine 1.03 Est Cr Clr Drug Dosing 41.9 Est GFR ( Amer) 61.6 Est GFR (Non-Af Amer) 53.1 BUN/Creatinine Ratio 28.1 H Glucose 131 H POC Glucose Calcium 8.6 Phosphorus 3.6 Magnesium 2.3 Total Bilirubin 0.9 AST 26 ALT 27 Alkaline Phosphatase 100 Total Protein 7.0 Albumin 3.4 Globulin 3.6 Albumin/Globulin Ratio 0.9 01/07/21 07:07 WBC RBC Hgb Hct MCV MCH MCHC RDW Std Deviation RDW Coeff of Giuliana Plt Count ABG pH ABG pCO2 ABG pO2 ABG HCO3 ABG O2 Saturation ABG Base Excess Maxwell Test Barometric Pressure Oxygen Given Sodium Potassium Chloride Carbon Dioxide Anion Gap BUN Creatinine Est Cr Clr Drug Dosing Est GFR ( Amer) Est GFR (Non-Af Amer) BUN/Creatinine Ratio Glucose POC Glucose 122 H Calcium Phosphorus Magnesium Total Bilirubin AST ALT Alkaline Phosphatase Total Protein Albumin Globulin Albumin/Globulin Ratio Diagnostic Findings Echocardiogram indicates cor pulmonale with severe right heart failure. Medications Administered Current Inpatient Medications Acetaminophen (Acetaminophen 325 Mg Tab) 650 mg PO Q4H PRN PRN Reason: Moderate Pain Stop: 02/04/21 18:26 Albuterol (Albut/Ipratrop 3mg/0.5mg Neb 3 Ml Vial) 3 ml NEB Q4R PRN PRN Reason: Dyspnea Stop: 02/05/21 14:59 Aspirin (Aspirin 81 Mg Ectab) 81 mg PO DAILY [facility] Stop: 02/05/21 08:59 Last Admin: 01/07/21 08:06 Dose: Not Given Documented by: Azithromycin (Azithromycin 250 Mg Tab) 250 mg PO QAM [facility] Stop: 01/12/21 18:26 Last Admin: 01/07/21 08:04 Dose: 250 mg Documented by: Budesonide (Budesonide 0.5 Mg/2 Ml Vial (Pulmicort)) 0.5 mg NEB BIDR [facility] Stop: 02/05/21 18:59 Last Admin: 01/07/21 07:12 Dose: 0.5 mg Documented by: Formoterol Fumarate (Formoterol 20 Mcg/2 Ml Vial) 20 mcg NEB BIDR [facility] Stop: 02/05/21 11:59 Last Admin: 01/07/21 07:12 Dose: 20 mcg Documented by: Furosemide (Furosemide 40 Mg/4 Ml Vial) 40 mg IV BID [facility] Stop: 02/04/21 20:59 Last Admin: 01/07/21 08:28 Dose: 40 mg Documented by: Guaifenesin (Guaifenesin 600 Mg Tabcr) 600 mg PO Q12 [facility] Stop: 02/04/21 20:59 Last Admin: 01/07/21 08:04 Dose: 600 mg Documented by: Ceftriaxone Sodium 1,000 mg/ (Dextrose) 50 mls @ 100 mls/hr IV Q24H [facility]; Protocol Stop: 01/20/21 11:59 Last Infusion: 01/06/21 12:55 Dose: Infused Documented by: Ondansetron HCl (Ondansetron Inj 2 Mg/Ml 2 Ml Vial) 4 mg IV Q4H PRN PRN Reason: Nausea And Vomiting Stop: 02/04/21 18:26 Prednisone (Prednisone 20 Mg Tab) 40 mg PO DAILY [facility] Stop: 02/05/21 08:59 Spironolactone (Spironolactone 12.5 Mg Tab) 12.5 mg PO BID [facility] Stop: 02/06/21 20:59 Umeclidinium [place] (Umeclidinium [place] 62.5mcg/Blister 7 Puffs/Inhaler) 1 puffs INH DAILY [facility] Stop: 02/05/21 11:59 Last Admin: 01/07/21 08:06 Dose: 1 puffs Documented by: Vitamin B Complex (Vitamin B Complex Tab) 1 tab PO DAILY [facility] Stop: 02/05/21 08:59 Last Admin: 01/07/21 08:04 Dose: 1 tab Documented by: Vitamin D (Cholecalciferol 1,000 Units 25 Mcg Tab) 5,000 units PO DAILY [facility] Stop: 02/05/21 08:59 Last Admin: 01/07/21 08:05 Dose: 5,000 units Documented by: (1) Acute and chronic respiratory failure Respiratory failure complication: hypoxia Qualified Code(s): J96.21 - Acute and chronic respiratory failure with hypoxia
[2021-01-07] MEDS: cefTRIAXone SODIUM 1,000 MG in DEXTROSE 5% 50 ML IV SCH (11:51)
[2021-01-07] MEDS: ALBUT/IPRATROP 3MG/0.5MG NEB 3 ML VIAL NEB PRN (17:49)
[2021-01-08 05:37] LABS: Hematocrit (blood only) 50.7 % (37-47); Hemoglobin 17.1 g/dL (12.0-16.0); Mean Corpuscular Hgb Conc 33.7 g/dL (32-36); Mean Corpuscular Volume 94.8 fL (80-100); Mean Platelet Volume 12.8 fL (7.4-10.4); Platelet Count 136 K/uL (130-400); RDW Standard Deviation 55.3 fL (36.4-46.3); Red Blood Count 5.35 M/uL (4.2-5.4); White Blood Count 10.61 K/uL (4.8-10.8)
[2021-01-08 06:00] LABS: Albumin Globulin Ratio 0.9 (0.9-2); Albumin Level 3.3 gm/dl (3.4-5.0); BUN Creatinine Ratio 27.5 (10-20); Bilirubin,Total 0.8 mg/dl (0.2-1); Calcium 8.7 mg/dl (8.5-10.1); Creatinine Clr Calc Pharmacy 36.7 ml/min; Est GFR (African American) 53.3 ml/min; Globulin 3.5 gm/dl (2.5-4.0); Magnesium 2.2 mg/dl (1.8-2.4); Phosphorus 3.6 mg/dl (2.5-4.9); Potassium 3.7 mmol/L (3.5-5.1); Total Protein 6.8 gm/dl (6.4-8.2)
[2021-01-08] MEDS: FORMOTEROL 20 MCG/2 ML VIAL NEB SCH ×2 (07:10→19:10)
[2021-01-08] MEDS: BUDESONIDE 0.5 MG/2 ML VIAL (PULMICORT) NEB SCH ×2 (07:10→19:10)
[2021-01-08] MEDS: ASPIRIN 81 MG ECTAB PO SCH (08:18)
[2021-01-08] MEDS: CHOLECALCIFEROL 1,000 UNITS 25 MCG TAB PO SCH (08:19)
[2021-01-08] MEDS: AZITHROMYCIN 250 MG TAB PO SCH (08:19)
[2021-01-08] MEDS: guaiFENesin 600 MG TABCR PO SCH ×2 (08:19→20:29)
[2021-01-08] MEDS: VITAMIN B COMPLEX TAB PO SCH (08:19)
[2021-01-08] MEDS: UMECLIDINIUM BROMIDE 62.5MCG/BLISTER 7 PUFFS/INHALER INH SCH (08:20)
[2021-01-08] MEDS: SPIRONOLACTONE 12.5 MG TAB PO SCH ×2 (08:20→21:18)
[2021-01-08] MEDS: FUROSEMIDE 40 MG/4 ML VIAL IV SCH ×2 (08:29→20:29)
[2021-01-08] MEDS ORDERED: POTASSIUM CHLORIDE CRTAB 20 MEQ TABCR PO STA (09:48)
--- NOTE | 2021-01-08 09:48 | Hospitalist Progress Note ---
Date of Service January 08, 2021 Assessment & Plan (1) Acute on chronic diastolic (congestive) heart failure: Severe pulmonary hypertension Cor pulmonale with severe dilatation and failure of the right heart -Admit to telemetry -IV Lasix 60 mg administered in the ER, now on 40 IV lasix bid, responding well -Spironolactone also added by cardiology -continue to monitor strict I's/O's, daily weights, Home dosing of lasix 40 mg PO BID. - Pt reports her dry weight is 148, does not weigh herself daily, admits to worsening edema in BLE. On admission is 148 lbs - however she may not know her weight and answer unreliable? - BNP is ~8000 on admission. - 2 D echo ordered - Right ventricle is severely dilated. Right ventricular systolic function is severely reduced. Left ventricular is normal in size. Flattened septum is consistent with RV pressure overload. EF 35 to 40%. Left atrial size is normal. Right atrium is severely dilated. There is moderate to severe tricuspid regurg. Severe pulmonary hypertension. - Cardiology consulted -continue diuresis with IV Lasix, spironolactone added and dose increased - CXR does not show infiltrate or specific fluid overload although she has distinct crackles on exam. CT chest noncontrast obtained, see below. (2) Acute and chronic respiratory failure: - Hx of such, on admission requiring 7 L compared to baseline of 5L at rest and 6 on exertion - Diuresis as above - Treated with Solu-Medrol, duo nebs for possibility of COPD exacerbation underlying. She reports that humidity normally does worsen her COPD. Pulmonary medicine consulted Per pulmonary medicine - Given the fact that her hemoglobin and hematocrit are elevated, I suspect that she has been more profoundly hypoxemic for a sustained period of time. This may have contributed to her elevated PA pressures. She may require more oxygen than what she reported previously. Palliative care consultation may be appropriate and is deferred to the primary admitting service (3) COPD (chronic obstructive pulmonary disease): -COPD/emphysema/restrictive lung disease -Patient denies using albuterol nebulizers at home recently, is using Ventolin HFA and Combivent however is not using spacer as she is lost it. Encourage having son trying to find it or consider replacement spacer prior to DC. -Solu-Medrol 60 mg given in the ER, will continue with prednisone 40 mg daily - Reviewed CXR, checking CT chest - Check Procal -Started azithromycin for possible COPD exacerbation -CT chest - IMPRESSION: 1. Emphysema with mild bibasilar atelectasis. 2. Low attenuating ovoid solid nodule of the basal right lower lobe measuring 1.2 x 0.8 cm has decreased in size from 2019 suggestive of benign etiology. Mild associated adjacent mucous plugging. 3. Cardiomegaly with pulmonary artery hypertension. 4. Gallbladder distention with cholelithiasis. 5. Additional findings as above. Pulmonary medicine consulted - Perforomist and budesonide. Continue albuterol Atrovent rescue nebs as needed. Continue azithromycin for potential COPD exacerbation. She is not really wheezing so I do not think she needs additional systemic steroids currently. Discontinue HFA and transition to DuoNebs as needed. Consideration of outpatient PFTs may be beneficial. Pulmonary rehabilitation may also be a consideration Bacteremia -Overnight gram-positive cocci noted in one of the blood cultures, started overnight on vancomycin. group B strep -continue Rocephin for now, stopped vancomycin There is no discrete infiltrate noted on the CT scan suggestive of pneumonia, per pulm. Started Rocephin pending sensitivities and cultures. (Patient has some wounds of the lower extremity which may be a portal of entry - follows with wound care) Blood cultures repeated Wound care consulted (4) HTN (hypertension): - Lasix as above, not on other antihypertensives (5) HLD (hyperlipidemia): - Does not take statin therapy, consider am lipid panel (6) Pulmonary hypertension: - Per Pulmonary medicine: Severe pulmonary hypertension but now EF is also reduced. Additional work-up at this point time would include right and left heart catheterizations with assessment of LVEDP and possible oxygen/vasodilator challenge. Dont think this can be performed here. Unclear if this would roll changer currently. Would be reluctant to consider empiric pulmonary vasodilators and patient with likely significant components of group 2 and group 3 pulmonary hypertension without right heart cath numbers. Can continue diuretics as tolerated by kidney function. The patient additional evaluation for pulmonary hypertension is required, would recommend that she be referred either to [facility] or [facility] for consideration of right heart cath, vasodilatory studies, and long-term management. (7) Venous stasis ulcer of right lower leg with edema of right lower leg: - Following with wound clinic as outpatient. 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 Most recent wound culture cleared. Wound care consult. DVT ppx: - teds, scds CODE: DNR/DNI Dispo: From home, likely to remain in the hospital x 1-2 days Admission and Anticipated Discharge Date Admission Date: January 05, 2021 Subjective Patient seen in follow-up of acute on chronic respiratory failure with hypoxia Currently patient sitting up in the bed, in no acute distress, on ~5L O2 via NC Denies any fever chills, chest pain, abdominal pain, nausea or vomiting Cardiology and pulmonary medicine consulted Update: After my exam, patient went into supraventricular tachycardia, A flutter, which then resolved spontaneously back to sinus rhythm Review of Systems Review of Systems: All systems reviewed & are unremarkable except as noted in HPI & below Constitutional: no fever and no chills Respiratory: + dyspnea (improved) Cardiovascular: no chest pain and no palpitations Gastrointestinal: no abdominal pain, no nausea and no vomiting Physical Exam Physical Exam: General: awake, alert, no apparent distress, on 5L of suppl. O2 Head: Normocephalic, atraumatic ENT: PERRL, EOMI, no pharyngeal exudate, endentulous, mucous membranes moist Chest: + mild bibasilar crackles, rhonchi (much improved from previous exam) Cardiac: HR 90-100, normal peripheral pulses, good capillary refill Abdominal: NABS x 4 quadrants, soft, nondistended, nontender to palpation, no rebound or guarding Extremities: 1-2 + pitting peripheral edema BLE to knees, right lower ankle wrapped in kerlix, anterior killian wound healed over, right posterior ankle wound healing, no surrounding erythema, no drainage, calves nontender to palpation Psych: Normal mood and affect Neuro: AAO x 3, strength intact bilaterally and rated 5/5, no motor deficits, speech is clear, no peripheral sensory deficits Results & Data Results & Data ([facility]) Vital Signs (Past 12 Hours) Vital Signs Temp Pulse Pulse Resp BP Pulse Ox 01/08/21 07:43 36.0 C L 22 164/110 H 90 01/08/21 07:10 85 20 90 01/08/21 05:45 36.0 C L 79 18 162/103 H 91 01/07/21 23:58 36.3 C L 97 H 18 138/95 90 01/07/21 23:52 100 H Laboratory Results 01/08/21 01/08/21 01/07/21 Range/Units 05:09 05:09 20:37 WBC 10.61 (4.8-10.8) K/uL RBC 5.35 (4.2-5.4) M/uL Hgb 17.1 H (12.0-16.0) g/dL Hct 50.7 H (37-47) % MCV 94.8 (80-100) fL MCH 32.0 (25-34) pg MCHC 33.7 (32-36) g/dL RDW Std Deviation 55.3 H (36.4-46.3) fL RDW Coeff of Giuliana 16.0 H (11.5-14.5) % Plt Count 136 (130-400) K/uL MPV 12.8 H (7.4-10.4) fL Sodium 140 (136-145) mmol/L Potassium 3.7 D (3.5-5.1) mmol/L Chloride 103 (98-107) mmol/L Carbon Dioxide 31 (21-32) mmol/L Anion Gap 6.0 (3-11) BUN 32 H (7-18) mg/dl Creatinine 1.16 (0.6-1.2) mg/dl Est Cr Clr Drug Dosing 36.7 ml/min Est GFR ( Amer) 53.3 ml/min Est GFR (Non-Af Amer) 46.0 ml/min BUN/Creatinine Ratio 27.5 H (10-20) Glucose 92 (70-99) mg/dl POC Glucose 131 H (70-99) mg/dl Calcium 8.7 (8.5-10.1) mg/dl Phosphorus 3.6 (2.5-4.9) mg/dl Magnesium 2.2 (1.8-2.4) mg/dl Total Bilirubin 0.8 (0.2-1) mg/dl AST 33 (15-37) U/L ALT 34 (12-78) U/L Alkaline Phosphatase 98 (45-117) U/L Total Protein 6.8 (6.4-8.2) gm/dl Albumin 3.3 L (3.4-5.0) gm/dl Globulin 3.5 (2.5-4.0) gm/dl Albumin/Globulin Ratio 0.9 (0.9-2) 01/07/21 01/07/21 Range/Units 16:06 11:16 WBC (4.8-10.8) K/uL RBC (4.2-5.4) M/uL Hgb (12.0-16.0) g/dL Hct (37-47) % MCV (80-100) fL MCH (25-34) pg MCHC (32-36) g/dL RDW Std Deviation (36.4-46.3) fL RDW Coeff of Giuliana (11.5-14.5) % Plt Count (130-400) K/uL MPV (7.4-10.4) fL Sodium (136-145) mmol/L Potassium (3.5-5.1) mmol/L Chloride (98-107) mmol/L Carbon Dioxide (21-32) mmol/L Anion Gap (3-11) BUN (7-18) mg/dl Creatinine (0.6-1.2) mg/dl Est Cr Clr Drug Dosing ml/min Est GFR ( Amer) ml/min Est GFR (Non-Af Amer) ml/min BUN/Creatinine Ratio (10-20) Glucose (70-99) mg/dl POC Glucose 137 H 150 H (70-99) mg/dl Calcium (8.5-10.1) mg/dl Phosphorus (2.5-4.9) mg/dl Magnesium (1.8-2.4) mg/dl Total Bilirubin (0.2-1) mg/dl AST (15-37) U/L ALT (12-78) U/L Alkaline Phosphatase (45-117) U/L Total Protein (6.4-8.2) gm/dl Albumin (3.4-5.0) gm/dl Globulin (2.5-4.0) gm/dl Albumin/Globulin Ratio (0.9-2) Medications Administered Current Inpatient Medications Acetaminophen (Acetaminophen 325 Mg Tab) 650 mg PO Q4H PRN PRN Reason: Moderate Pain Stop: 02/04/21 18:26 Albuterol (Albut/Ipratrop 3mg/0.5mg Neb 3 Ml Vial) 3 ml NEB Q4R PRN PRN Reason: Dyspnea Stop: 02/05/21 14:59 Last Admin: 01/07/21 17:49 Dose: 3 ml Documented by: Aspirin (Aspirin 81 Mg Ectab) 81 mg PO DAILY [facility] Stop: 02/05/21 08:59 Last Admin: 01/08/21 08:18 Dose: Not Given Documented by: Azithromycin (Azithromycin 250 Mg Tab) 250 mg PO QAM [facility] Stop: 01/12/21 18:26 Last Admin: 01/08/21 08:19 Dose: 250 mg Documented by: Budesonide (Budesonide 0.5 Mg/2 Ml Vial (Pulmicort)) 0.5 mg NEB BIDR [facility] Stop: 02/05/21 18:59 Last Admin: 01/08/21 07:10 Dose: 0.5 mg Documented by: Formoterol Fumarate (Formoterol 20 Mcg/2 Ml Vial) 20 mcg NEB BIDR [facility] Stop: 02/05/21 11:59 Last Admin: 01/08/21 07:10 Dose: 20 mcg Documented by: Furosemide (Furosemide 40 Mg/4 Ml Vial) 40 mg IV BID [facility] Stop: 02/04/21 20:59 Last Admin: 01/08/21 08:29 Dose: 40 mg Documented by: Guaifenesin (Guaifenesin 600 Mg Tabcr) 600 mg PO Q12 [facility] Stop: 02/04/21 20:59 Last Admin: 01/08/21 08:19 Dose: 600 mg Documented by: Ceftriaxone Sodium 1,000 mg/ (Dextrose) 50 mls @ 100 mls/hr IV Q24H [facility]; Protocol Stop: 01/20/21 11:59 Last Infusion: 01/07/21 12:27 Dose: Infused Documented by: Ondansetron HCl (Ondansetron Inj 2 Mg/Ml 2 Ml Vial) 4 mg IV Q4H PRN PRN Reason: Nausea And Vomiting Stop: 02/04/21 18:26 Prednisone (Prednisone 20 Mg Tab) 40 mg PO DAILY [facility] Stop: 02/05/21 08:59 Spironolactone (Spironolactone 12.5 Mg Tab) 12.5 mg PO BID [facility] Stop: 02/06/21 20:59 Last Admin: 01/08/21 08:20 Dose: 12.5 mg Documented by: [place]cl[place] (Umeclidinium [place] 62.5mcg/Blister 7 Puffs/Inhaler) 1 puffs INH DAILY [facility] Stop: 02/05/21 11:59 Last Admin: 01/08/21 08:20 Dose: 1 puffs Documented by: Vitamin B Complex (Vitamin B Complex Tab) 1 tab PO DAILY [facility] Stop: 02/05/21 08:59 Last Admin: 01/08/21 08:19 Dose: 1 tab Documented by: Vitamin D (Cholecalciferol 1,000 Units 25 Mcg Tab) 5,000 units PO DAILY [facility] Stop: 02/05/21 08:59 Last Admin: 01/08/21 08:19 Dose: 5,000 units Documented by: (1) Acute and chronic respiratory failure Respiratory failure complication: hypoxia Qualified Code(s): J96.21 - Acute and chronic respiratory failure with hypoxia
--- NOTE | 2021-01-08 10:34 | Pulmonology Progress Note ---
Date of Service January 08, 2021 Assessment & Plan (1) COPD (chronic obstructive pulmonary disease): (2) Pulmonary hypertension: (3) Hypoxia: (4) Acute and chronic respiratory failure: Impression: 75-year-old female with radiographically advanced COPD although PFTs are not available to review admitted with shortness of breath which is likely multifactorial. She does have known pulmonary hypertension which is likely WHO group 2 and 3. Repeat echocardiogram does show severe pulmonary hypertension but now left ventricular ejection fraction is down to 30 to 35%. She does have beta Streptococcus on 1 out of 2 blood cultures. There is no discrete infiltrate noted on the CT scan suggestive of pneumonia. Recommendations: 1. COPD: Continue Perforomist and budesonide. Continue albuterol Atrovent rescue nebs as needed. Continue azithromycin for potential COPD exacerbation. She is not really wheezing so I do not think she needs additional systemic steroids currently. Consideration of outpatient PFTs may be beneficial. Follow-up ABG demonstrated no evidence of hypercarbia. Pulmonary rehabilitation may also be a consideration. Recommend that the patient be ambulated as becky ated. 2. Pulmonary hypertension: Severe pulmonary hypertension but now EF is also reduced. Additional work-up at this point time would include right and left heart catheterizations with assessment of LVEDP and possible oxygen/vasodilator challenge. Dont think this can be performed here. Unclear if this would address change clerk currently. Would be reluctant to consider empiric pulmonary vasodi lators and patient with likely significant components of group 2 and group 3 pulmonary hypertension without right heart cath numbers. Can continue diuretics as tolerated by kidney function. She is almost 5 L negative since admission with no change in serum creatinine. The patient additional evaluation for pulmonary hypertension is required, would recommend that she be referred either to [facility] or [facility] for consideration of right heart cath, vasodilatory studies, and long-term management. 3. Chronic hypoxemic respiratory failure: Given the fact that her hemoglobin and hematocrit are elevated, I suspect that she has been more profoundly hypoxemic for a sustained period of time. This may have contributed to her elevated PA pressures. She may require more oxygen than what she reported previously. Palliative care consultation may be appropriate and is deferred to the primary admitting service 4. Streptococcal bacteremia: Rocephin should be adequate coverage. Per primary service We will continue to follow with you. Feel free to contact us if we can be of additional assistance Respiratory failure complication: hypoxia Qualified Code(s): J96.21 - Acute and chronic respiratory failure with hypoxia Admission and Anticipated Discharge Date Admission Date: January 05, 2021 Subjective Patient seen and examined. She feels that her breathing is slightly better toda y although she continues to complain of congestion in her chest with a difficult to clear mucus. She is not wheezing. She denies chest pain or palpitations. Review of Systems Review of Systems: All systems reviewed & are unremarkable except as noted in HPI & below Physical Exam Constitutional: + frail appearing Neck: trachea midline, no thyromegaly Respiratory: + labored breathing; no respiratory distress Auscultation: no crackles and no wheezes Cardiovascular: Rate/Rhythm: + tachycardic Heart Sounds: normal S1 and normal S2; no murmur Palpation: no heave Gastrointestinal (Abdomen): normal bowel sounds, soft, nontender, no hepatosplenomegaly Musculoskeletal: Extremities: extremities normal to inspection Skin: no rashes, warm and dry Lymphatic: no cervical lymphadenopathy Results & Data Results & Data ([facility]) Vital Signs (Past 12 Hours) Vital Signs Temp Pulse Pulse Resp BP Pulse Ox 01/08/21 07:43 36.0 C L 22 164/110 H 90 01/08/21 07:10 85 20 90 01/08/21 05:45 36.0 C L 79 18 162/103 H 91 01/07/21 23:58 36.3 C L 97 H 18 138/95 90 01/07/21 23:52 100 H Laboratory Results 01/08/21 05:09 01/08/21 05:09 Diagnostic Findings No new films PG Care Time/CCT Total # of Minutes Spent Total Time Spent with Patient: Total time spent is greater than 50% in coordination of care (as documented) at patient's floor/unit and/or counseling patient: Coding Level of Care Code 91554 Subseq Hosp Care Lvl 2 Diagnoses COPD (chronic obstructive pulmonary disease) J44.9 Pulmonary hypertension I27.20 Hypoxia R09.02 Acute and chronic respiratory failure J96.21 Respiratory failure complication: hypoxia
[2021-01-08] MEDS: cefTRIAXone SODIUM 1,000 MG in DEXTROSE 5% 50 ML IV SCH (11:49)
[2021-01-08] MEDS: ACETAMINOPHEN 325 MG TAB PO PRN (11:50)
[2021-01-08] MEDS ORDERED: METOPROLOL SUCC 50MG EXT REL TAB PO STA (12:11)
[2021-01-08] MEDS ORDERED: METOPROLOL SUCC 25MG EXT REL TAB PO STA (12:28)
--- NOTE | 2021-01-08 12:34 | Cardiology Progress Note ---
Date of Service January 08, 2021 Assessment & Plan (1) Atrial flutter, paroxysmal: Patient with complex history as recently outlined with acute and chronic respiratory failure and right heart failure/cor pulmonale. Today transiently lapsed into atrial flutter with spontaneous conversion to sinus rhythm. Will initiate low-dose beta-eze for heart rate and rhythm control. Begin IV anticoagulation with heparin consider long-term full anticoagulation with warfarin given paroxysmal atrial arrhythmias as well as right heart failure/pulmonary hypertension Continue IV diuretics with improving clinical exam. Spironolactone and potassium supplements with goals potassium level above 4 (2) Acute and chronic respiratory failure: (3) Acute on chronic right-sided congestive heart failure: (4) Pulmonary hypertension: (5) Chronic respiratory failure with hypoxia, on home O2 therapy: (6) Sinus tachycardia: Admission and Anticipated Discharge Date Admission Date: January 05, 2021 Subjective Patient was seen and examined, chart, medications, telemetry reviewed. Patient notes no acute complaints overnight. Lower extremity edema slightly improved. Shortly after examination this morning however patient lapsed into atrial flutter with rapid response for transient. With spontaneous conversion to sinus/sinus tachycardia. No chest pains. No worsening shortness of breath no productive cough. She is continue to manifest diuresis Review of Systems Review of Systems: All systems reviewed & are unremarkable except as noted in HPI & below Physical Exam Constitutional: + thin and + frail appearing Eyes: PERRL, conjunctivae normal, anicteric sclerae ENMT: external ear and nose normal, oropharynx normal Respiratory: Auscultation: + diminished lung sounds Cardiovascular: Rate/Rhythm: regular rate and regular rhythm Extremities: + edema (2-3+ bilateral with associated ruborous skin changes, ulceration right killian) Gastrointestinal (Abdomen): Percussion/Palpation: abdomen soft; abdomen nontender Results & Data ([facility]) Vital Signs (Past 12 Hours) Vital Signs Temp Pulse Resp BP Pulse Ox 01/08/21 11:15 150 H 24 123/96 89 L 01/08/21 07:43 36.0 C L 22 164/110 H 90 01/08/21 07:10 85 20 90 01/08/21 05:45 36.0 C L 79 18 162/103 H 91 Laboratory Results Laboratory Results - last 24 hr 01/07/21 01/07/21 01/08/21 16:06 20:37 05:09 WBC 10.61 RBC 5.35 Hgb 17.1 H Hct 50.7 H MCV 94.8 MCH 32.0 MCHC 33.7 RDW Std Deviation 55.3 H RDW Coeff of Giuliana 16.0 H Plt Count 136 MPV 12.8 H Sodium Potassium Chloride Carbon Dioxide Anion Gap BUN Creatinine Est Cr Clr Drug Dosing Est GFR ( Amer) Est GFR (Non-Af Amer) BUN/Creatinine Ratio Glucose POC Glucose 137 H 131 H Calcium Phosphorus Magnesium Total Bilirubin AST ALT Alkaline Phosphatase Total Protein Albumin Globulin Albumin/Globulin Ratio 01/08/21 05:09 WBC RBC Hgb Hct MCV MCH MCHC RDW Std Deviation RDW Coeff of Giuliana Plt Count MPV Sodium 140 Potassium 3.7 D Chloride 103 Carbon Dioxide 31 Anion Gap 6.0 BUN 32 H Creatinine 1.16 Est Cr Clr Drug Dosing 36.7 Est GFR ( Amer) 53.3 Est GFR (Non-Af Amer) 46.0 BUN/Creatinine Ratio 27.5 H Glucose 92 POC Glucose Calcium 8.7 Phosphorus 3.6 Magnesium 2.2 Total Bilirubin 0.8 AST 33 ALT 34 Alkaline Phosphatase 98 Total Protein 6.8 Albumin 3.3 L Globulin 3.5 Albumin/Globulin Ratio 0.9 (1) Acute and chronic respiratory failure Respiratory failure complication: hypoxia Qualified Code(s): J96.21 - Acute and chronic respiratory failure with hypoxia
[2021-01-08] MEDS ORDERED: Heparin IV Adult Wt-Based Low-Dose *NO* Bolus Protocol IV SCH (13:00)
[2021-01-08] MEDS: HEPARIN SODIUM/DEXTROSE 25,000 UNITS/500 ML BAG IV SCH (13:16)
[2021-01-08 20:03] LABS: Partial Thromboplastin Ratio 1.2; Partial Thromboplastin Time 32.2 Seconds (21.0-31.0)
[2021-01-08] MEDS ORDERED: HEPARIN SOD (PORCINE) 1000 UNIT/ML IV ONE (20:10)
[2021-01-08] MEDS ORDERED: HEPARIN IV BOLUS 2,000 UNITS in SYRINGE 0 ML IV ONE (20:30)
[2021-01-08] MEDS: METOPROLOL SUCC 25MG EXT REL TAB PO SCH (21:19)
[2021-01-08] MEDS: ALBUT/IPRATROP 3MG/0.5MG NEB 3 ML VIAL NEB PRN (22:40)
[2021-01-09 02:33] LABS: Partial Thromboplastin Ratio 1.5; Partial Thromboplastin Time 38.6 Seconds (21.0-31.0)
[2021-01-09] MEDS: FORMOTEROL 20 MCG/2 ML VIAL NEB SCH ×2 (07:15→19:05)
[2021-01-09] MEDS: BUDESONIDE 0.5 MG/2 ML VIAL (PULMICORT) NEB SCH ×2 (07:15→19:05)
[2021-01-09] MEDS: UMECLIDINIUM BROMIDE 62.5MCG/BLISTER 7 PUFFS/INHALER INH SCH (08:39)
[2021-01-09] MEDS: guaiFENesin 600 MG TABCR PO SCH ×2 (08:45→20:06)
[2021-01-09] MEDS: ASPIRIN 81 MG ECTAB PO SCH (08:45)
[2021-01-09] MEDS: AZITHROMYCIN 250 MG TAB PO SCH (08:45)
[2021-01-09] MEDS: SPIRONOLACTONE 12.5 MG TAB PO SCH ×2 (08:45→20:06)
[2021-01-09] MEDS: VITAMIN B COMPLEX TAB PO SCH (08:45)
[2021-01-09] MEDS: CHOLECALCIFEROL 1,000 UNITS 25 MCG TAB PO SCH (08:46)
[2021-01-09] MEDS: METOPROLOL SUCC 25MG EXT REL TAB PO SCH ×2 (08:46→20:06)
[2021-01-09] MEDS: FUROSEMIDE 40 MG/4 ML VIAL IV SCH ×2 (08:54→20:06)
--- NOTE | 2021-01-09 09:12 | Electrocardiogram Report ---
Test Reason : Blood Pressure : / mmHG Vent. Rate : 154 BPM Atrial Rate : 154 BPM P-R Int : 128 ms QRS Dur : 110 ms QT Int : 262 ms P-R-T Axes : 108 124 -54 degrees QTc Int : 419 ms Poor data quality, interpretation may be adversely affected Probable 2:1 Atrial Flutter with occasional Premature ventricular complexes Right bundle branch block Left posterior fascicular block Septal infarct (cited on or before 05-JAN-2021) T wave abnormality, consider inferolateral ischemia Abnormal ECG When compared with ECG of 05-JAN-2021 12:53, 2:1 Atrial flutter has replaced NSR Premature ventricular complexes are now Present Vent. rate has increased BY 57 BPM Confirmed by Shabbir Garcia ([id number]) on 01/09/2021 9:12:07 AM Referred By: REFERRED SELF Confirmed By:Shabbir Garcia
--- NOTE | 2021-01-09 09:14 | Electrocardiogram Report ---
Test Reason : Blood Pressure : / mmHG Vent. Rate : 153 BPM Atrial Rate : 153 BPM P-R Int : 138 ms QRS Dur : 114 ms QT Int : 254 ms P-R-T Axes : 114 125 -52 degrees QTc Int : 405 ms Suspect arm lead reversal, interpretation assumes no reversal 2:1 Atrial flutter Left posterior fascicular block Incomplete right bundle branch block Septal infarct (cited on or before 05-JAN-2021) T wave abnormality, consider inferolateral ischemia Abnormal ECG When compared with ECG of 08-JAN-2021 11:05, (unconfirmed) Premature ventricular complexes are no longer Present Confirmed by Shabbir Garcia ([id number]) on 01/09/2021 9:14:07 AM Referred By: REFERRED SELF Confirmed By:Shabbir Garcia
[2021-01-09 09:26] LABS: Mean Corpuscular Hgb Conc 33.8 g/dL (32-36)
[2021-01-09 09:33] LABS: Hematocrit (blood only) 52.4 % (37-47); Hemoglobin 17.7 g/dL (12.0-16.0); Mean Corpuscular Hemoglobin 31.4 pg (25-34); Mean Corpuscular Volume 93.1 fL (80-100); RDW Coefficient of Variation 15.8 % (11.5-14.5); RDW Standard Deviation 54.3 fL (36.4-46.3); Red Blood Count 5.63 M/uL (4.2-5.4); White Blood Count 8.59 K/uL (4.8-10.8)
[2021-01-09 09:38] LABS: Partial Thromboplastin Ratio 1.6; Partial Thromboplastin Time 42.4 Seconds (21.0-31.0)
[2021-01-09 09:44] LABS: BUN Creatinine Ratio 26.4 (10-20); Creatinine Clr Calc Pharmacy 44.3 ml/min; Est GFR (African American) 67.1 ml/min; Est GFR (Non-African American) 57.9 ml/min; Potassium 3.3 mmol/L (3.5-5.1)
[2021-01-09 09:45] LABS: Phosphorus 3.3 mg/dl (2.5-4.9)
[2021-01-09 09:49] LABS: Platelet Count 145 K/uL (130-400)
[2021-01-09] MEDS ORDERED: POTASSIUM CHLORIDE CRTAB 20 MEQ TABCR PO STA (09:55)
[2021-01-09] MEDS ORDERED: POTASSIUM CHLORIDE / WTR 10 MEQ/100 ML PLCT IV ONE (09:56)
--- NOTE | 2021-01-09 10:38 | Cardiology Progress Note ---
Date of Service January 09, 2021 Assessment & Plan (1) Atrial flutter, paroxysmal: No further atrial arrhythmias overnight. Appears to be tolerating low- dose beta-eze with good heart rate control. Anticoagulated with IV heparin She has had brisk diuresis overnight Recommendations: Continue current medications with plans to hold IV furosemide after dose this evening. Possible conversion to oral dosing tomorrow, will need potassium supplement today. Continue spironolactone will need long-term anticoagulation with conversion from heparin to warfarin versus DOAC (2) Acute and chronic respiratory failure: (3) Acute on chronic right-sided congestive heart failure: Slowly improving Echocardiogram in addition to pulmonary hypertension demonstrates LV systolic dysfunction. We will add low-dose ARB to her regimen continue metoprolol succinate furosemide and spironolactone (4) Pulmonary hypertension: (5) Chronic respiratory failure with hypoxia, on home O2 therapy: (6) Sinus tachycardia: Admission and Anticipated Discharge Date Admission Date: January 05, 2021 Subjective Patient was seen and examined, chart, medications, telemetry reviewed. Patient had brisk diuresis overnight. No further atrial arrhythmias. Respiratory status stable without acute change. Lower extremity edema improved. No fevers or chills. Still difficulty sleeping at night Physical Exam Constitutional: + thin and + frail appearing Eyes: PERRL, conjunctivae normal, anicteric sclerae ENMT: external ear and nose normal, oropharynx normal Neck: trachea midline, no thyromegaly Respiratory: Auscultation: + diminished lung sounds, + crackles (Bases) and + wheezes (Less pronounced) Cardiovascular: Rate/Rhythm: regular rate and regular rhythm Extremities: + edema (2+ bilateral improved with associated ruborous skin changes) Gastrointestinal (Abdomen): Percussion/Palpation: abdomen soft; abdomen nontender Skin: Bandaged ulceration right killian Results & Data ([facility]) Vital Signs (Past 12 Hours) Vital Signs Temp Pulse Pulse Resp BP Pulse Ox 01/09/21 08:00 69 01/09/21 07:30 36.4 C L 68 18 133/83 93 01/09/21 07:15 74 18 94 01/09/21 03:35 36.5 C 83 18 125/92 90 01/09/21 03:10 100 H 01/09/21 00:20 36.6 C 79 18 128/81 90 01/08/21 22:42 86 18 88 L Laboratory Results Laboratory Results - last 24 hr 01/08/21 01/09/21 01/09/21 19:32 02:10 08:57 WBC 8.59 RBC 5.63 H Hgb 17.7 H Hct 52.4 H MCV 93.1 MCH 31.4 MCHC 33.8 RDW Std Deviation 54.3 H RDW Coeff of Giuliana 15.8 H Plt Count 145 APTT 32.2 H 38.6 H PTT Ratio 1.2 1.5 Sodium Potassium Chloride Carbon Dioxide Anion Gap BUN Creatinine Est Cr Clr Drug Dosing Est GFR ( Amer) Est GFR (Non-Af Amer) BUN/Creatinine Ratio Glucose Calcium Phosphorus Magnesium 01/09/21 01/09/21 08:57 08:57 WBC RBC Hgb Hct MCV MCH MCHC RDW Std Deviation RDW Coeff of Giuliana Plt Count APTT 42.4 H PTT Ratio 1.6 Sodium 137 Potassium 3.3 L Chloride 100 Carbon Dioxide 31 Anion Gap 7.0 BUN 25 H Creatinine 0.96 Est Cr Clr Drug Dosing 44.3 Est GFR ( Amer) 67.1 Est GFR (Non-Af Amer) 57.9 BUN/Creatinine Ratio 26.4 H Glucose 174 H Calcium 9.0 Phosphorus 3.3 Magnesium 2.0 (1) Acute and chronic respiratory failure Respiratory failure complication: hypoxia Qualified Code(s): J96.21 - Acute and chronic respiratory failure with hypoxia
--- NOTE | 2021-01-09 11:04 | Hospitalist Progress Note ---
Date of Service January 09, 2021 Assessment & Plan (1) Acute on chronic diastolic (congestive) heart failure: Severe pulmonary hypertension Cor pulmonale with severe dilatation and failure of the right heart -Admit to telemetry -IV Lasix 60 mg administered in the ER, now on 40 IV lasix bid, responding well -Spironolactone also added by cardiology -continue to monitor strict I's/O's, daily weights, Home dosing of lasix 40 mg PO BID. - Pt reports her dry weight is 148, does not weigh herself daily, admits to worsening edema in BLE. On admission is 148 lbs - however she may not know her weight and answer unreliable? - BNP is ~8000 on admission. - 2 D echo ordered - Right ventricle is severely dilated. Right ventricular systolic function is severely reduced. Left ventricular is normal in size. Flattened septum is consistent with RV pressure overload. EF 35 to 40%. Left atrial size is normal. Right atrium is severely dilated. There is moderate to severe tricuspid regurg. Severe pulmonary hypertension. - Cardiology consulted -continue diuresis with IV Lasix, spironolactone added and dose increased - CXR does not show infiltrate or specific fluid overload although she has distinct crackles on exam. CT chest noncontrast obtained, see below. Aflutter - 01/08 -patient went into a flutter, then sinus tachycardia, resolved spont aneously Discussed with cardiology, patient was started on metoprolol and IV heparin Patient was asymptomatic during that time Now sustains in sinus rhythm (2) Acute and chronic respiratory failure: - Hx of such, on admission requiring 7 L compared to baseline of 5L at rest and 6 on exertion - Diuresis as above - Treated with Solu-Medrol, duo nebs for possibility of COPD exacerbation underlying. She reports that humidity normally does worsen her COPD. Pulmonary medicine consulted Per pulmonary medicine - Given the fact that her hemoglobin and hematocrit are elevated, I suspect that she has been more profoundly hypoxemic for a sustained period of time. This may have contributed to her elevated PA pressures. She may require more oxygen than what she reported previously. Palliative care consultation may be appropriate and is deferred to the primary admitting service (3) COPD (chronic obstructive pulmonary disease): -COPD/emphysema/restrictive lung disease -Patient denies using albuterol nebulizers at home recently, is using Ventolin HFA and Combivent however is not using spacer as she is lost it. Encourage having son trying to find it or consider replacement spacer prior to DC. -Solu-Medrol 60 mg given in the ER, will continue with prednisone 40 mg daily - Reviewed CXR, checking CT chest - Check Procal -Started azithromycin for possible COPD exacerbation -CT chest - IMPRESSION: 1. Emphysema with mild bibasilar atelectasis. 2. Low attenuating ovoid solid nodule of the basal right lower lobe measuring 1.2 x 0.8 cm has decreased in size from 2019 suggestive of benign etiology. Mild associated adjacent mucous plugging. 3. Cardiomegaly with pulmonary artery hypertension. 4. Gallbladder distention with cholelithiasis. 5. Additional findings as above. Pulmonary medicine consulted - Perforomist and budesonide. Continue albuterol Atrovent rescue nebs as needed. Continue azithromycin for potential COPD exacerbation. She is not really wheezing so I do not think she needs additional systemic steroids currently. Discontinue HFA and transition to DuoNebs as needed. Consideration of outpatient PFTs may be beneficial. Pulmonary rehabilitation may also be a consideration Bacteremia -Overnight gram-positive cocci noted in one of the blood cultures, started overnight on vancomycin. group B strep -continue Rocephin for now, stopped vancomycin There is no discrete infiltrate noted on the CT scan suggestive of pneumonia, per pulm. Started Rocephin pending sensitivities and cultures. (Patient has some wounds of the lower extremity which may be a portal of entry - follows with wound care) Blood cultures repeated Wound care consulted (4) HTN (hypertension): - Lasix as above, not on other antihypertensives (5) HLD (hyperlipidemia): - Does not take statin therapy, consider am lipid panel (6) Pulmonary hypertension: - Per Pulmonary medicine: Severe pulmonary hypertension but now EF is also reduced. Additional work-up at this point time would include right and left heart catheterizations with assessment of LVEDP and possible oxygen/vasodilator challenge. Dont think this can be performed here. Unclear if this would plant changer currently. Would be reluctant to consider empiric pulmonary vasodilators and patient with likely significant components of group 2 and group 3 pulmonary hypertension without right heart cath numbers. Can continue diuretics as tolerated by kidney function. The patient additional evaluation for pulmonary hypertension is required, would recommend that she be referred either to [facility] or [facility] for consideration of right heart cath, vasodilatory studies, and long-term management. (7) Venous stasis ulcer of right lower leg with edema of right lower leg: - Following with wound clinic as outpatient. 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 Most recent wound culture cleared. Wound care consult. DVT ppx: - teds, scds CODE: DNR/DNI Dispo: From home, likely to remain in the hospital x 1-2 days Admission and Anticipated Discharge Date Admission Date: January 05, 2021 Subjective Patient seen in follow-up of acute on chronic respiratory failure with hypoxia Currently patient sitting up in the bed, in no acute distress, on ~5L O2 via NC Denies any fever chills, chest pain, abdominal pain, nausea or vomiting Cardiology and pulmonary medicine consulted Went into supraventricular tachycardia, A flutter, yesterday which then resolved spontaneously back to sinus rhythm - was started on metoprolol and IV heparin by cardiology Patient denies feeling any palpitations or discomfort when it happened Review of Systems Review of Systems: All systems reviewed & are unremarkable except as noted in HPI & below Constitutional: no fever and no chills Respiratory: + dyspnea (improved) Cardiovascular: no chest pain and no palpitations Gastrointestinal: no abdominal pain, no nausea and no vomiting Physical Exam Physical Exam: General: awake, alert, no apparent distress, on 5L of suppl. O2 Head: Normocephalic, atraumatic ENT: PERRL, EOMI, no pharyngeal exudate, endentulous, mucous membranes moist Chest: + mild bibasilar crackles, rhonchi, min wheezes (much improved from previous exam) Cardiac: RRR, HR in 60-70s Abdominal: NABS x 4 quadrants, soft, nondistended, nontender to palpation, no rebound or guarding Extremities: 1-2 + pitting peripheral edema BLE to knees, R anterior killian wound healed over, right posterior ankle wound healing, no surrounding erythema, no drainage, calves nontender to palpation Psych: Normal mood and affect Neuro: AAO x 3, strength intact bilaterally and rated 5/5, no motor deficits, speech is clear, no peripheral sensory deficits Results & Data Results & Data ([facility]) Vital Signs (Past 12 Hours) Vital Signs Temp Pulse Pulse Resp BP Pulse Ox 01/09/21 08:00 69 01/09/21 07:30 36.4 C L 68 18 133/83 93 01/09/21 07:15 74 18 94 01/09/21 03:35 36.5 C 83 18 125/92 90 01/09/21 03:10 100 H 01/09/21 00:20 36.6 C 79 18 128/81 90 Laboratory Results 01/09/21 01/09/21 01/09/21 Range/Units 08:57 08:57 08:57 WBC 8.59 (4.8-10.8) K/uL RBC 5.63 H (4.2-5.4) M/uL Hgb 17.7 H (12.0-16.0) g/dL Hct 52.4 H (37-47) % MCV 93.1 (80-100) fL MCH 31.4 (25-34) pg MCHC 33.8 (32-36) g/dL RDW Std Deviation 54.3 H (36.4-46.3) fL RDW Coeff of Giuliana 15.8 H (11.5-14.5) % Plt Count 145 (130-400) K/uL APTT 42.4 H (21.0-31.0) Seconds PTT Ratio 1.6 Sodium 137 (136-145) mmol/L Potassium 3.3 L (3.5-5.1) mmol/L Chloride 100 (98-107) mmol/L Carbon Dioxide 31 (21-32) mmol/L Anion Gap 7.0 (3-11) BUN 25 H (7-18) mg/dl Creatinine 0.96 (0.6-1.2) mg/dl Est Cr Clr Drug Dosing 44.3 ml/min Est GFR ( Amer) 67.1 ml/min Est GFR (Non-Af Amer) 57.9 ml/min BUN/Creatinine Ratio 26.4 H (10-20) Glucose 174 H (70-99) mg/dl Calcium 9.0 (8.5-10.1) mg/dl Phosphorus 3.3 (2.5-4.9) mg/dl Magnesium 2.0 (1.8-2.4) mg/dl 01/09/21 01/08/21 Range/Units 02:10 19:32 WBC (4.8-10.8) K/uL RBC (4.2-5.4) M/uL Hgb (12.0-16.0) g/dL Hct (37-47) % MCV (80-100) fL MCH (25-34) pg MCHC (32-36) g/dL RDW Std Deviation (36.4-46.3) fL RDW Coeff of Giuliana (11.5-14.5) % Plt Count (130-400) K/uL APTT 38.6 H 32.2 H (21.0-31.0) Seconds PTT Ratio 1.5 1.2 Sodium (136-145) mmol/L Potassium (3.5-5.1) mmol/L Chloride (98-107) mmol/L Carbon Dioxide (21-32) mmol/L Anion Gap (3-11) BUN (7-18) mg/dl Creatinine (0.6-1.2) mg/dl Est Cr Clr Drug Dosing ml/min Est GFR ( Amer) ml/min Est GFR (Non-Af Amer) ml/min BUN/Creatinine Ratio (10-20) Glucose (70-99) mg/dl Calcium (8.5-10.1) mg/dl Phosphorus (2.5-4.9) mg/dl Magnesium (1.8-2.4) mg/dl Medications Administered Current Inpatient Medications Acetaminophen (Acetaminophen 325 Mg Tab) 650 mg PO Q4H PRN PRN Reason: Moderate Pain Stop: 02/04/21 18:26 Last Admin: 01/08/21 11:50 Dose: 650 mg Documented by: Albuterol (Albut/Ipratrop 3mg/0.5mg Neb 3 Ml Vial) 3 ml NEB Q4R PRN PRN Reason: Dyspnea Stop: 02/05/21 14:59 Last Admin: 01/08/21 22:40 Dose: 3 ml Documented by: Aspirin (Aspirin 81 Mg Ectab) 81 mg PO DAILY [facility] Stop: 02/05/21 08:59 Last Admin: 01/09/21 08:45 Dose: Not Given Documented by: Azithromycin (Azithromycin 250 Mg Tab) 250 mg PO QAM [facility] Stop: 01/12/21 18:26 Last Admin: 01/09/21 08:45 Dose: 250 mg Documented by: Budesonide (Budesonide 0.5 Mg/2 Ml Vial (Pulmicort)) 0.5 mg NEB BIDR [facility] Stop: 02/05/21 18:59 Last Admin: 01/09/21 07:15 Dose: 0.5 mg Documented by: Formoterol Fumarate (Formoterol 20 Mcg/2 Ml Vial) 20 mcg NEB BIDR [facility] Stop: 02/05/21 11:59 Last Admin: 01/09/21 07:15 Dose: 20 mcg Documented by: Furosemide (Furosemide 40 Mg/4 Ml Vial) 40 mg IV BID [facility] Stop: 02/04/21 20:59 Last Admin: 01/09/21 08:54 Dose: 40 mg Documented by: Guaifenesin (Guaifenesin 600 Mg Tabcr) 600 mg PO Q12 [facility] Stop: 02/04/21 20:59 Last Admin: 01/09/21 08:45 Dose: 600 mg Documented by: Ceftriaxone Sodium 1,000 mg/ (Dextrose) 50 mls @ 100 mls/hr IV Q24H [facility]; Protocol Stop: 01/20/21 11:59 Last Infusion: 01/08/21 12:22 Dose: Infused Documented by: Heparin Sodium/Dextrose (Heparin Sodium/Dextrose) 25,000 units in 500 mls @ 17 mls/hr IV .Q24H [facility]; Protocol Stop: 02/07/21 13:14 Last Titration: 01/09/21 10:13 Dose: 850 units/hr, 17 mls/hr Documented by: Losartan Potassium (Losartan Potassium 25 Mg Tab) 25 mg PO QAM [facility] Stop: 02/08/21 10:59 Metoprolol Succinate (Metoprolol Succ 25mg Ext Rel Tab) 12.5 mg PO BID [facility] Stop: 02/07/21 20:59 Last Admin: 01/09/21 08:46 Dose: 12.5 mg Documented by: Ondansetron HCl (Ondansetron Inj 2 Mg/Ml 2 Ml Vial) 4 mg IV Q4H PRN PRN Reason: Nausea And Vomiting Stop: 02/04/21 18:26 Prednisone (Prednisone 20 Mg Tab) 40 mg PO DAILY [facility] Stop: 02/05/21 08:59 Spironolactone (Spironolactone 12.5 Mg Tab) 12.5 mg PO BID [facility] Stop: 02/06/21 20:59 Last Admin: 01/09/21 08:45 Dose: 12.5 mg Documented by: Umeclidinium [place] (Umeclidinium [place] 62.5mcg/Blister 7 Puffs/Inhaler) 1 puffs INH DAILY [facility] Stop: 02/05/21 11:59 Last Admin: 01/09/21 08:39 Dose: 1 puffs Documented by: Vitamin B Complex (Vitamin B Complex Tab) 1 tab PO DAILY [facility] Stop: 02/05/21 08:59 Last Admin: 01/09/21 08:45 Dose: 1 tab Documented by: Vitamin D (Cholecalciferol 1,000 Units 25 Mcg Tab) 5,000 units PO DAILY [facility] Stop: 02/05/21 08:59 Last Admin: 01/09/21 08:46 Dose: 5,000 units Documented by: (1) Acute and chronic respiratory failure Respiratory failure complication: hypoxia Qualified Code(s): J96.21 - Acute and chronic respiratory failure with hypoxia
--- NOTE | 2021-01-09 11:37 | Pulmonology Progress Note ---
Date of Service January 09, 2021 Assessment & Plan (1) COPD (chronic obstructive pulmonary disease): (2) Pulmonary hypertension: (3) Hypoxia: (4) Acute and chronic respiratory failure: Impression: 75-year-old female with radiographically advanced COPD although PFTs are not available to review admitted with shortness of breath which is likely multifactorial. She does have known pulmonary hypertension which is likely WHO group 2 and 3. Repeat echocardiogram does show severe pulmonary hypertension but now left ventricular ejection fraction is down to 30 to 35%. She does have beta Streptococcus on 1 out of 2 blood cultures. There is no discrete infiltrate noted on the CT scan suggestive of pneumonia. Recommendations: 1. COPD: Continue Perforomist and budesonide as well as Incruse. Continue Mucinex but increase to 1200 mg twice a day. Continue albuterol Atrovent rescue nebs as needed. Continue azithromycin for potential COPD exacerbation. She is not really wheezing so I do not think she needs additional systemic steroids currently. Consideration of outpatient PFTs may be beneficial. Follow-up ABG demonstrated no evidence of hypercarbia. Pulmonary rehabilitation may also be a consideration in the outpatient setting. Recommend that the patient be ambulated as tolerated. She feels congested in the chest so we will pursue a trial of hypertonic saline to see if this offers her a clinical benefit. 2. Pulmonary hypertension: Severe pulmonary hypertension but now EF is also reduced. Patient also had an episode of SVT last night which spontaneously terminated and is now on an increasing dose of beta-eze and anticoagulation. Additional work-up at this point time would include right and left heart catheterizations with assessment of LVEDP and possible oxygen/vasodilator challenge. Dont think this can be performed here. Unclear if this would change management administrator currently. Would be reluctant to consider empiric pulmonary vasodilators (patient with likely significant components of group 2 and group 3 pulmonary hypertension) without right heart cath numbers. Agree with continued diuretics as tolerated by kidney function. If additional evaluation for pulmonary hypertension is required, would recommend that she be referred either to [facility] or [facility] for consideration of right heart cath, vasodilatory studies, and long-term management. 3. Chronic hypoxemic respiratory failure: Given the fact that her hemoglobin and hematocrit are elevated, I suspect that she has been more profoundly hypoxemic for a sustained period of time. This may have contributed to her elevated PA pressures. She may require more oxygen than what she reported prev iously. Palliative care consultation should be considered 4. Streptococcal bacteremia: Rocephin should be adequate coverage. Per primary service We will continue to follow with you. Feel free to contact us if we can be of additional assistance Respiratory failure complication: hypoxia Qualified Code(s): J96.21 - Acute and chronic respiratory failure with hypoxia Admission and Anticipated Discharge Date Admission Date: January 05, 2021 Subjective Patient seen and examined. 24-hour events noted with episode of supraventricular tachycardia. Diuresed. Now on heparin. She thinks her breathing may be slightly better. She is unclear if the inhalers are offering her benefit. She continues to complain of some congestion in her chest and difficulty expectorating phlegm. She is quite fixated on her oxygen level and feels she needs more oxygen despite her oxygen saturations being normal. Review of Systems Review of Systems: See hospitalist note. No changes Physical Exam Constitutional: + frail appearing Neck: trachea midline, no thyromegaly Respiratory: no respiratory distress Auscultation: no crackles and no w heezes Cardiovascular: Rate/Rhythm: + tachycardic Heart Sounds: normal S1 and normal S2; no murmur Palpation: no heave Gastrointestinal (Abdomen): normal bowel sounds, soft, nontender, no hepatosplenomegaly Musculoskeletal: Extremities: extremities normal to inspection Skin: no rashes, warm and dry Lymphatic: no cervical lymphadenopathy Results & Data Results & Data ([facility]) Vital Signs (Past 12 Hours) Vital Signs Temp Pulse Pulse Resp BP Pulse Ox 01/09/21 08:00 69 01/09/21 07:30 36.4 C L 68 18 133/83 93 01/09/21 07:15 74 18 94 01/09/21 03:35 36.5 C 83 18 125/92 90 01/09/21 03:10 100 H 01/09/21 00:20 36.6 C 79 18 128/81 90 Laboratory Results 01/09/21 08:57 01/09/21 08:57 Diagnostic Findings No new imaging PG Care Time/CCT Total # of Minutes Spent Total Time Spent with Patient: Total time spent is greater than 50% in coordination of care (as documented) at patient's floor/unit and/or counseling patient: Coding Level of Care Code 85266 Subseq Hosp Care Lvl 2 Diagnoses COPD (chronic obstructive pulmonary disease) J44.9 Pulmonary hypertension I27.20 Hypoxia R09.02 Acute and chronic respiratory failure J96.21 Respiratory failure complication: hypoxia
[2021-01-09] MEDS: LOSARTAN POTASSIUM 25 MG TAB PO SCH (12:10)
[2021-01-09] MEDS: ADVANCED PROBIOTIC 1250 MG CAPSULE PO SCH (12:10)
[2021-01-09] MEDS: cefTRIAXone SODIUM 1,000 MG in DEXTROSE 5% 50 ML IV SCH (12:14)
[2021-01-09 16:15] LABS: Partial Thromboplastin Ratio 1.6; Partial Thromboplastin Time 42.1 Seconds (21.0-31.0)
[2021-01-09] MEDS: HEPARIN SODIUM/DEXTROSE 25,000 UNITS/500 ML BAG IV SCH (16:59)
[2021-01-09] MEDS ORDERED: WARFARIN SOD 5 MG TAB PO ONE (17:20)
[2021-01-09] MEDS: SODIUM CHLOR 7% 4 ML NEB NEB SCH ×2 (19:05→19:26)
[2021-01-09 23:27] LABS: Partial Thromboplastin Ratio 1.8
[2021-01-09 23:28] LABS: Partial Thromboplastin Time 47.8 Seconds (21.0-31.0)
[2021-01-10] MEDS: ALBUT/IPRATROP 3MG/0.5MG NEB 3 ML VIAL NEB PRN (03:28)
[2021-01-10 06:08] LABS: Mean Corpuscular Hgb Conc 33.9 g/dL (32-36)
[2021-01-10 06:22] LABS: INR 1.2 (0.9-1.1); Prothrombin Time 12.3 Seconds (9.0-12.0)
[2021-01-10 06:23] LABS: Hematocrit (blood only) 52.2 % (37-47); Hemoglobin 17.7 g/dL (12.0-16.0); Mean Corpuscular Hemoglobin 31.6 pg (25-34); Mean Corpuscular Volume 93.2 fL (80-100); RDW Coefficient of Variation 15.7 % (11.5-14.5); RDW Standard Deviation 53.6 fL (36.4-46.3); White Blood Count 9.11 K/uL (4.8-10.8)
[2021-01-10 07:05] LABS: BUN Creatinine Ratio 24.6 (10-20); Calcium 9.1 mg/dl (8.5-10.1); Creatinine Clr Calc Pharmacy 46.3 ml/min; Est GFR (African American) 70.6 ml/min; Est GFR (Non-African American) 60.9 ml/min; Magnesium 2.1 mg/dl (1.8-2.4)
[2021-01-10] MEDS: SODIUM CHLOR 7% 4 ML NEB NEB SCH ×2 (07:06→19:03)
[2021-01-10] MEDS: FORMOTEROL 20 MCG/2 ML VIAL NEB SCH ×2 (07:06→19:03)
[2021-01-10] MEDS: BUDESONIDE 0.5 MG/2 ML VIAL (PULMICORT) NEB SCH ×2 (07:06→19:03)
[2021-01-10 07:24] LABS: Mean Platelet Volume 12.5 fL (7.4-10.4); Platelet Count 135 K/uL (130-400)
--- NOTE | 2021-01-10 07:45 | Hospitalist Progress Note ---
Date of Service January 10, 2021 Assessment & Plan (1) Acute on chronic diastolic (congestive) heart failure: Severe pulmonary hypertension Cor pulmonale with severe dilatation and failure of the right heart -Admit to telemetry -IV Lasix 60 mg administered in the ER, now on 40 IV lasix bid, responding well -Spironolactone also added by cardiology -continue to monitor strict I's/O's, daily weights, Home dosing of lasix 40 mg PO BID. - Pt reports her dry weight is 148, does not weigh herself daily, admits to worsening edema in BLE. On admission is 148 lbs - however she may not know her weight and answer unreliable? - BNP is ~8000 on admission. - 2 D echo ordered - Right ventricle is severely dilated. Right ventricular systolic function is severely reduced. Left ventricular is normal in size. Flattened septum is consistent with RV pressure overload. EF 35 to 40%. Left atrial size is normal. Right atrium is severely dilated. There is moderate to severe tricuspid regurg. Severe pulmonary hypertension. - Cardiology consulted -continue diuresis with IV Lasix, spironolactone added and dose increased - CXR does not show infiltrate or specific fluid overload although she has distinct crackles on exam. CT chest noncontrast obtained, see below. Aflutter - 01/08 -patient went into a flutter, then sinus tachycardia, resolved spont aneously Discussed with cardiology, patient was started on metoprolol and IV heparin Patient was asymptomatic during that time Now sustains in sinus rhythm (2) Acute and chronic respiratory failure: - Hx of such, on admission requiring 7 L compared to baseline of 5L at rest and 6 on exertion - Diuresis as above - Treated with Solu-Medrol, duo nebs for possibility of COPD exacerbation underlying. She reports that humidity normally does worsen her COPD. Pulmonary medicine consulted Per pulmonary medicine - Given the fact that her hemoglobin and hematocrit are elevated, I suspect that she has been more profoundly hypoxemic for a sustained period of time. This may have contributed to her elevated PA pressures. She may require more oxygen than what she reported previously. Palliative care consultation may be appropriate and is deferred to the primary admitting service (3) COPD (chronic obstructive pulmonary disease): -COPD/emphysema/restrictive lung disease -Patient denies using albuterol nebulizers at home recently, is using Ventolin HFA and Combivent however is not using spacer as she is lost it. Encourage having son trying to find it or consider replacement spacer prior to DC. -Solu-Medrol 60 mg given in the ER, will continue with prednisone 40 mg daily - Reviewed CXR, checking CT chest - Check Procal -Started azithromycin for possible COPD exacerbation -CT chest - IMPRESSION: 1. Emphysema with mild bibasilar atelectasis. 2. Low attenuating ovoid solid nodule of the basal right lower lobe measuring 1.2 x 0.8 cm has decreased in size from 2019 suggestive of benign etiology. Mild associated adjacent mucous plugging. 3. Cardiomegaly with pulmonary artery hypertension. 4. Gallbladder distention with cholelithiasis. 5. Additional findings as above. Pulmonary medicine consulted - Perforomist and budesonide. Continue albuterol Atrovent rescue nebs as needed. Continue azithromycin for potential COPD exacerbation. She is not really wheezing so I do not think she needs additional systemic steroids currently. Discontinue HFA and transition to DuoNebs as needed. Consideration of outpatient PFTs may be beneficial. Pulmonary rehabilitation may also be a consideration Bacteremia -Overnight gram-positive cocci noted in one of the blood cultures, started overnight on vancomycin. group B strep -continue Rocephin for now, stopped vancomycin There is no discrete infiltrate noted on the CT scan suggestive of pneumonia, per pulm. Started Rocephin pending sensitivities and cultures. (Patient has some wounds of the lower extremity which may be a portal of entry - follows with wound care) Blood cultures repeated Wound care consulted (4) HTN (hypertension): - Lasix as above, not on other antihypertensives (5) HLD (hyperlipidemia): - Does not take statin therapy, consider am lipid panel (6) Pulmonary hypertension: - Per Pulmonary medicine: Severe pulmonary hypertension but now EF is also reduced. Additional work-up at this point time would include right and left heart catheterizations with assessment of LVEDP and possible oxygen/vasodilator challenge. Dont think this can be performed here. 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 Would be reluctant to consider empiric pulmonary vasodilators and patient with likely significant components of group 2 and group 3 pulmonary hypertension without right heart cath numbers. Can continue diuretics as tolerated by kidney function. The patient additional evaluation for pulmonary hypertension is required, would recommend that she be referred either to [facility] or [facility] for consideration of right heart cath, vasodilatory studies, and long-term management. (7) Venous stasis ulcer of right lower leg with edema of right lower leg: - Following with wound clinic as outpatient. 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 Most recent wound culture cleared. Wound care consult. DVT ppx: - teds, scds CODE: DNR/DNI Dispo: From home, likely to remain in the hospital x 1-2 days Admission and Anticipated Discharge Date Admission Date: January 05, 2021 Subjective Patient seen in follow-up of acute on chronic respiratory failure with hypoxia Currently patient sitting up in the bed, in no acute distress, on ~6L O2 via NC She is currently sleeping in a sitting position, says that she gets" panic attacks" when she sleeps, and has to be positioned in sitting up position Seems more dyspneic during conversation today, more than previous days Denies any fever chills, chest pain, abdominal pain, nausea or vomiting Cardiology and pulmonary medicine consulted Review of Systems Review of Systems: All systems reviewed & are unremarkable except as noted in HPI & below Constitutional: + fatigue; no fever and no chills Respiratory: + dyspnea Cardiovascular: no chest pain and no palpitations Gastrointestinal: no abdominal pain, no nausea and no vomiting Physical Exam Physical Exam: General: awake, alert, no apparent distress, on 5L of suppl. O2 Head: Normocephalic, atraumatic ENT: PERRL, EOMI, no pharyngeal exudate, endentulous, mucous membranes moist Chest: + mild bibasilar crackles, rhonchi, min wheezes (much improved from previous exam) Cardiac: RRR, HR in 60-70s Abdominal: NABS x 4 quadrants, soft, nondistended, nontender to palpation, no rebound or guarding Extremities: 1-2 + pitting peripheral edema BLE to knees, R anterior killian wound healed over, right posterior ankle wound healing, no surrounding erythema, no drainage, calves nontender to palpation Psych: Normal mood and affect Neuro: AAO x 3, strength intact bilaterally and rated 5/5, no motor deficits, speech is clear, no peripheral sensory deficits Results & Data Results & Data ([facility]) Vital Signs (Past 12 Hours) Vital Signs Temp Pulse Pulse Resp BP Pulse Ox 01/10/21 07:14 36.7 C 77 19 151/105 H 93 01/10/21 07:07 77 18 90 01/10/21 03:28 76 19 94 01/10/21 03:18 36.7 C 78 18 109/70 92 01/09/21 23:12 86 01/09/21 23:11 36.7 C 90 20 120/101 H 92 Laboratory Results 01/10/21 01/10/21 01/10/21 Range/Units 05:44 05:44 05:44 WBC 9.11 (4.8-10.8) K/uL RBC 5.60 H (4.2-5.4) M/uL Hgb 17.7 H (12.0-16.0) g/dL Hct 52.2 H (37-47) % MCV 93.2 (80-100) fL MCH 31.6 (25-34) pg MCHC 33.9 (32-36) g/dL RDW Std Deviation 53.6 H (36.4-46.3) fL RDW Coeff of Giuliana 15.7 H (11.5-14.5) % Plt Count 135 (130-400) K/uL MPV 12.5 H (7.4-10.4) fL PT 12.3 H (9.0-12.0) Seconds INR 1.2 H (0.9-1.1) APTT (21.0-31.0) Seconds PTT Ratio Sodium 135 L (136-145) mmol/L Potassium 4.0 D (3.5-5.1) mmol/L Chloride 99 (98-107) mmol/L Carbon Dioxide 28 (21-32) mmol/L Anion Gap 8.0 (3-11) BUN 23 H (7-18) mg/dl Creatinine 0.92 (0.6-1.2) mg/dl Est Cr Clr Drug Dosing 46.3 ml/min Est GFR ( Amer) 70.6 ml/min Est GFR (Non-Af Amer) 60.9 ml/min BUN/Creatinine Ratio 24.6 H (10-20) Glucose 108 H (70-99) mg/dl Calcium 9.1 (8.5-10.1) mg/dl Phosphorus (2.5-4.9) mg/dl Magnesium 2.1 (1.8-2.4) mg/dl 01/09/21 01/09/21 01/09/21 Range/Units 22:47 15:57 08:57 WBC (4.8-10.8) K/uL RBC (4.2-5.4) M/uL Hgb (12.0-16.0) g/dL Hct (37-47) % MCV (80-100) fL MCH (25-34) pg MCHC (32-36) g/dL RDW Std Deviation (36.4-46.3) fL RDW Coeff of Giuliana (11.5-14.5) % Plt Count (130-400) K/uL MPV (7.4-10.4) fL PT (9.0-12.0) Seconds INR (0.9-1.1) APTT 47.8 H* 42.1 H 42.4 H (21.0-31.0) Seconds PTT Ratio 1.8 1.6 1.6 Sodium (136-145) mmol/L Potassium (3.5-5.1) mmol/L Chloride (98-107) mmol/L Carbon Dioxide (21-32) mmol/L Anion Gap (3-11) BUN (7-18) mg/dl Creatinine (0.6-1.2) mg/dl Est Cr Clr Drug Dosing ml/min Est GFR ( Amer) ml/min Est GFR (Non-Af Amer) ml/min BUN/Creatinine Ratio (10-20) Glucose (70-99) mg/dl Calcium (8.5-10.1) mg/dl Phosphorus (2.5-4.9) mg/dl Magnesium (1.8-2.4) mg/dl 01/09/21 01/09/21 Range/Units 08:57 08:57 WBC 8.59 (4.8-10.8) K/uL RBC 5.63 H (4.2-5.4) M/uL Hgb 17.7 H (12.0-16.0) g/dL Hct 52.4 H (37-47) % MCV 93.1 (80-100) fL MCH 31.4 (25-34) pg MCHC 33.8 (32-36) g/dL RDW Std Deviation 54.3 H (36.4-46.3) fL RDW Coeff of Giuliana 15.8 H (11.5-14.5) % Plt Count 145 (130-400) K/uL MPV (7.4-10.4) fL PT (9.0-12.0) Seconds INR (0.9-1.1) APTT (21.0-31.0) Seconds PTT Ratio Sodium 137 (136-145) mmol/L Potassium 3.3 L (3.5-5.1) mmol/L Chloride 100 (98-107) mmol/L Carbon Dioxide 31 (21-32) mmol/L Anion Gap 7.0 (3-11) BUN 25 H (7-18) mg/dl Creatinine 0.96 (0.6-1.2) mg/dl Est Cr Clr Drug Dosing 44.3 ml/min Est GFR ( Amer) 67.1 ml/min Est GFR (Non-Af Amer) 57.9 ml/min BUN/Creatinine Ratio 26.4 H (10-20) Glucose 174 H (70-99) mg/dl Calcium 9.0 (8.5-10.1) mg/dl Phosphorus 3.3 (2.5-4.9) mg/dl Magnesium 2.0 (1.8-2.4) mg/dl Medications Administered Current Inpatient Medications Acetaminophen (Acetaminophen 325 Mg Tab) 650 mg PO Q4H PRN PRN Reason: Moderate Pain Stop: 02/04/21 18:26 Last Admin: 01/08/21 11:50 Dose: 650 mg Documented by: Albuterol (Albut/Ipratrop 3mg/0.5mg Neb 3 Ml Vial) 3 ml NEB Q4R PRN PRN Reason: Dyspnea Stop: 02/05/21 14:59 Last Admin: 01/10/21 03:28 Dose: 3 ml Documented by: Aspirin (Aspirin 81 Mg Ectab) 81 mg PO DAILY [facility] Stop: 02/05/21 08:59 Last Admin: 01/09/21 08:45 Dose: Not Given Documented by: Azithromycin (Azithromycin 250 Mg Tab) 250 mg PO QAM [facility] Stop: 01/12/21 18:26 Last Admin: 01/09/21 08:45 Dose: 250 mg Documented by: Budesonide (Budesonide 0.5 Mg/2 Ml Vial (Pulmicort)) 0.5 mg NEB BIDR [facility] Stop: 02/05/21 18:59 Last Admin: 01/10/21 07:06 Dose: 0.5 mg Documented by: Formoterol Fumarate (Formoterol 20 Mcg/2 Ml Vial) 20 mcg NEB BIDR [facility] Stop: 02/05/21 11:59 Last Admin: 01/10/21 07:06 Dose: 20 mcg Documented by: Furosemide (Furosemide 40 Mg/4 Ml Vial) 40 mg IV BID [facility] Stop: 02/04/21 20:59 Last Admin: 01/09/21 20:06 Dose: 40 mg Documented by: Guaifenesin (Guaifenesin 600 Mg Tabcr) 1,200 mg PO Q12 [facility] Stop: 02/08/21 20:59 Last Admin: 01/09/21 20:06 Dose: Not Given Documented by: Ceftriaxone Sodium 1,000 mg/ (Dextrose) 50 mls @ 100 mls/hr IV Q24H [facility]; Protocol Stop: 01/20/21 11:59 Last Infusion: 01/09/21 12:48 Dose: Infused Documented by: Heparin Sodium/Dextrose (Heparin Sodium/Dextrose) 25,000 units in 500 mls @ 18 mls/hr IV .Q24H [facility]; Protocol Stop: 02/07/21 13:14 Last Admin: 01/09/21 16:59 Dose: 900 units/hr, 18 mls/hr Documented by: Lactobacillus Acidoph/Casei/Rhamnos (Advanced Probiotic 1250 Mg Capsule) 2 cap PO DAILY [facility] Stop: 02/08/21 11:14 Last Admin: 01/09/21 12:10 Dose: 2 cap Documented by: Losartan Potassium (Losartan Potassium 25 Mg Tab) 25 mg PO QAM [facility] Stop: 02/08/21 10:59 Last Admin: 01/09/21 12:10 Dose: 25 mg Documented by: Metoprolol Succinate (Metoprolol Succ 25mg Ext Rel Tab) 12.5 mg PO BID [facility] Stop: 02/07/21 20:59 Last Admin: 01/09/21 20:06 Dose: 12.5 mg Documented by: Ondansetron HCl (Ondansetron Inj 2 Mg/Ml 2 Ml Vial) 4 mg IV Q4H PRN PRN Reason: Nausea And Vomiting Stop: 02/04/21 18:26 Prednisone (Prednisone 20 Mg Tab) 40 mg PO DAILY [facility] Stop: 02/05/21 08:59 Sodium Chloride (Sodium Chlor 7% 4 Ml Neb) 4 ml NEB BIDR [facility] Stop: 02/08/21 18:59 Last Admin: 01/10/21 07:06 Dose: Not Given Documented by: Spironolactone (Spironolactone 12.5 Mg Tab) 12.5 mg PO BID [facility] Stop: 02/06/21 20:59 Last Admin: 01/09/21 20:06 Dose: 12.5 mg Documented by: Umeclidinium [place] (Umeclidinium [place] 62.5mcg/Blister 7 Puffs/Inhaler) 1 puffs INH DAILY [facility] Stop: 02/05/21 11:59 Last Admin: 01/09/21 08:39 Dose: 1 puffs Documented by: Vitamin B Complex (Vitamin B Complex Tab) 1 tab PO DAILY [facility] Stop: 02/05/21 08:59 Last Admin: 01/09/21 08:45 Dose: 1 tab Documented by: Vitamin D (Cholecalciferol 1,000 Units 25 Mcg Tab) 5,000 units PO DAILY [facility] Stop: 02/05/21 08:59 Last Admin: 01/09/21 08:46 Dose: 5,000 units Documented by: Warfarin Sodium (Warfarin Sod 5 Mg Tab) 5 mg PO DAILY@1600 [facility] Stop: 02/09/21 15:59 (1) Acute and chronic respiratory failure Respiratory failure complication: hypoxia Qualified Code(s): J96.21 - Acute and chronic respiratory failure with hypoxia
[2021-01-10] MEDS: ASPIRIN 81 MG ECTAB PO SCH (08:44)
[2021-01-10] MEDS: CHOLECALCIFEROL 1,000 UNITS 25 MCG TAB PO SCH (08:45)
[2021-01-10] MEDS: guaiFENesin 600 MG TABCR PO SCH ×2 (08:45→21:04)
[2021-01-10] MEDS: AZITHROMYCIN 250 MG TAB PO SCH (08:45)
[2021-01-10] MEDS: LOSARTAN POTASSIUM 25 MG TAB PO SCH (08:46)
[2021-01-10] MEDS: ADVANCED PROBIOTIC 1250 MG CAPSULE PO SCH (08:46)
[2021-01-10] MEDS: SPIRONOLACTONE 12.5 MG TAB PO SCH ×2 (08:47→21:02)
[2021-01-10] MEDS: METOPROLOL SUCC 25MG EXT REL TAB PO SCH ×2 (08:47→21:02)
[2021-01-10] MEDS: UMECLIDINIUM BROMIDE 62.5MCG/BLISTER 7 PUFFS/INHALER INH SCH (08:48)
[2021-01-10] MEDS: VITAMIN B COMPLEX TAB PO SCH (08:48)
[2021-01-10] MEDS: cefTRIAXone SODIUM 1,000 MG in DEXTROSE 5% 50 ML IV SCH (12:10)
[2021-01-10] MEDS: ACETAMINOPHEN 325 MG TAB PO PRN (12:54)
--- NOTE | 2021-01-10 14:51 | Cardiology Progress Note ---
Date of Service January 10, 2021 Assessment & Plan (1) Atrial flutter, paroxysmal: No further atrial arrhythmias thus 01/09, 01/10. Recommendations: Continue low dose metoprolol. Heparin bridge to coumadin. As outpt will have pt establish with [facility] in [place]. (2) Acute and chronic respiratory failure: (3) Acute on chronic right-sided congestive heart failure: Slowly improving Echocardiogram images from this hospital stay improved. Severe RV chamber dilatation and RV dysfunction noted. Moderate to severe TR due to RV chamber dilatation with tethering of the TV leaflets and RV annulus dilatation. Per review of prior echo studies performed Nov, 2018 RV disfunction present at that time with similar pulmonary systolic pressures in the 60 mm Hg range then. Abnormal septal motion noted due to RV pressure / volume overload status > than LV dysfunction. Patient describes starting smoking at age of 14 and smoke heavily for 20 years. Her father had "emphysema". H/o MRSA bacteremia on LE wound cultures earlier this year, 1/4 blood cultures with Group B strep this admission. Agree with empiric antibiotics. No valvular vegetation within the scope of transthoracic echo. Resume furosemide 40 mg IV tomorrow. Continue spironlactone. (4) Pulmonary hypertension: (5) Chronic respiratory failure with hypoxia, on home O2 therapy: (6) Sinus tachycardia: Admission and Anticipated Discharge Date Admission Date: January 05, 2021 Subjective Ms Soria is seen in cardiology consultation for follow up of shortness of breath and leg edema. Feeling marginally improved. SR noted on telemetry. Review of Systems Review of Systems: All systems reviewed & are unremarkable except as noted in HPI & below Physical Exam Physical Exam: Temp Pulse Resp BP Pulse Ox 36.2 C L 79 16 108/72 90 01/10/21 10:59 01/10/21 10:59 01/10/21 10:59 01/10/21 10:59 01/10/21 10:59 Constitutional: chronically ill in appearance Respiratory: Auscultation: no crackles, no rales and no rhonchi Cardiovascular: Rate/Rhythm: regular rhythm Heart Sounds: + murmur (I/ SM) Vessels: + JVD Extremities: + edema (1+ LLE edema, 2+ RLE edema) Gastrointestinal (Abdomen): normal bowel sounds, soft, nontender, no h epatosplenomegaly Neurologic: PERRL, EOMI, accommodation nl, no face palsy, no dysarthria Results & Data ([facility]) Vital Signs (Past 12 Hours) Vital Signs Temp Pulse Resp BP Pulse Ox 01/10/21 10:59 36.2 C L 79 16 108/72 90 01/10/21 07:14 36.7 C 77 19 151/105 H 93 01/10/21 07:07 77 18 90 01/10/21 03:28 76 19 94 01/10/21 03:18 36.7 C 78 18 109/70 92 Laboratory Results Coagulation 01/09/21 01/09/21 01/10/21 Range/Units 15:57 22:47 05:44 PT 12.3 H (9.0-12.0) Seconds APTT 42.1 H 47.8 H* (21.0-31.0) Seconds CBC 01/10/21 Range/Units 05:44 WBC 9.11 (4.8-10.8) K/uL RBC 5.60 H (4.2-5.4) M/uL Hgb 17.7 H (12.0-16.0) g/dL Hct 52.2 H (37-47) % Plt Count 135 (130-400) K/uL Comprehensive Metabolic Panel 01/10/21 Range/Units 05:44 Sodium 135 L (136-145) mmol/L Potassium 4.0 D (3.5-5.1) mmol/L Chloride 99 (98-107) mmol/L Carbon Dioxide 28 (21-32) mmol/L BUN 23 H (7-18) mg/dl Creatinine 0.92 (0.6-1.2) mg/dl Glucose 108 H (70-99) mg/dl Calcium 9.1 (8.5-10.1) mg/dl Intake and Output 01/09/21 01/10/21 01/10/21 22:59 06:59 14:59 Intake Total 415.317 / 618.917 250 / 250 Output Total 350 / 2127 325 / 2127 Balance 65.317 / -1508.083 -325 / -1508.083 250 / 250 Intake: IV 115.317 / 318.917 50 / 50 Heparin Sodium/Dextrose 25,000 115.317 / 168.917 units In 500 ml @ 900 UNITS/HR 18 mls/hr IV .Q24H [facility] Rx#: [id number] cefTRIAXone SODIUM 1,000 mg In 50 / 50 Dextrose 5% 50 ml @ 100 mls/hr IV Q24H [facility] Rx#:[id number] Oral 300 / 300 200 / 200 Output: Urine 350 / 1800 Other 325 / 325 Other: # Unmeasured Voids 1 # Bowel Movement Diapers 2 (1) Acute and chronic respiratory failure Respiratory failure complication: hypoxia Qualified Code(s): J96.21 - Acute and chronic respiratory failure with hypoxia
[2021-01-10] MEDS ORDERED: WARFARIN SOD 5 MG TAB PO SCH (16:00)
--- NOTE | 2021-01-10 16:14 | Pulmonology Progress Note ---
Date of Service January 10, 2021 Assessment & Plan (1) COPD (chronic obstructive pulmonary disease): (2) Pulmonary hypertension: (3) Hypoxia: (4) Acute and chronic respiratory failure: Impression: 75-year-old female with radiographically advanced COPD although PFTs are not available to review admitted with shortness of breath which is likely multifactorial. She does have known pulmonary hypertension which is likely WHO group 2 and 3. Repeat echocardiogram does show severe pulmonary hypertension but now left ventricular ejection fraction is down to 30 to 35%. She does have beta Streptococcus on 1 out of 2 blood cultures. There is no discrete infiltrate noted on the CT scan suggestive of pneumonia. Recommendations: 1. COPD: Continue Perforomist and budesonide as well as Incruse. Continue Mucinex. Continue albuterol Atrovent rescue nebs as needed. Continue azithromycin for potential COPD exacerbation. Recommend a prednisone course of 5 to 7 days that was already started by the hospitalist. Outpatient PFTs may be beneficial. No hypercapnia noted on ABG. Pulmonary rehabilitation may also be a consideration in the outpatient setting. Recommend that the patient be ambulated as tolerated. Recommend discharge home on combination ICS/LABA/LAMA such as Trelegy. I suspect anxiety is playing a significant role in her symptoms. Recommend initiation of BuSpar. 2. Pulmonary hypertension: Severe pulmonary hypertension, but now EF is also reduced. Additional work-up at this point time would include right and left heart catheterizations with assessment of LVEDP and possible oxygen/vasodilator challenge. Dont think this can be performed here. 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 Would be reluctant to consider empiric pulmonary vasodilators (patient with likely significant components of group 2 and group 3 pulmonary hypertension) without right heart cath numbers. Agree with continued diuretics as tolerated by kidney function. 3. Chronic hypoxemic respiratory failure: Given the fact that her hemoglobin and hematocrit are elevated, I suspect that she has been more profoundly hypoxemic for a sustained period of time. This may have contributed to her elevated PA pressures. She may require more oxygen than what she reported previously. Pulmonary is available should the need arise. Please call with questions. Thank you for the consultation. Respiratory failure complication: hypoxia Qualified Code(s): J96.21 - Acute and chronic respiratory failure with hypoxia (5) Anxiety: Admission and Anticipated Discharge Date Admission Date: January 05, 2021 Subjective Patient seen and examined today. She endorses a significant amount anxiety. She also notes discomfort in her nose from the nasal cannula. She describes that she wakes up often during the night with shortness of breath. She feels that she needs more oxygen. She denies any chest pain, fevers or chills. Review of Systems Review of Systems: All systems reviewed & are unremarkable except as noted in HPI & below Physical Exam Constitutional: + frail appearing Neck: trachea midline, no thyromegaly Respiratory: no respiratory distress Auscultation: no crackles and no wheezes Cardiovascular: Heart Sounds: normal S1 and normal S2; no murmur Extremities: + edema Gastrointestinal (Abdomen): normal bowel sounds, soft, nontender, no hepatosplenomegaly Musculoskeletal: Extremities: extremities normal to inspection Skin: no rashes, warm and dry Lymphatic: no cervical lymphadenopathy Results & Data Results & Data ([facility]) Vital Signs (Past 12 Hours) Vital Signs Temp Pulse Resp BP Pulse Ox 01/10/21 15:28 97.5 F L 85 16 112/73 90 01/10/21 10:59 97.2 F L 79 16 108/72 90 01/10/21 07:14 98.1 F 77 19 151/105 H 93 01/10/21 07:07 77 18 90 PG Care Time/CCT Total # of Minutes Spent Total Time Spent with Patient: Total time spent is greater than 50% in coordination of care (as documented) at patient's floor/unit and/or counseling patient: Coding Level of Care Code 07669 Subseq Hosp Care Lvl 3 Diagnoses COPD (chronic obstructive pulmonary disease) J44.9 Pulmonary hypertension I27.20 Hypoxia R09.02 Acute and chronic respiratory failure J96.21 Respiratory failure complication: hypoxia Anxiety F41.9
[2021-01-10 18:14] LABS: Partial Thromboplastin Time 52.1 Seconds (21.0-31.0)
[2021-01-10] MEDS: HEPARIN SODIUM/DEXTROSE 25,000 UNITS/500 ML BAG IV SCH (20:57)
[2021-01-11] MEDS: ALBUT/IPRATROP 3MG/0.5MG NEB 3 ML VIAL NEB PRN (05:02)
[2021-01-11 05:55] LABS: Hemoglobin 17.6 g/dL (12.0-16.0); Mean Corpuscular Hemoglobin 31.5 pg (25-34); Mean Corpuscular Hgb Conc 33.8 g/dL (32-36); Mean Corpuscular Volume 93.2 fL (80-100); Mean Platelet Volume 12.4 fL (7.4-10.4); Platelet Count 144 K/uL (130-400); RDW Coefficient of Variation 15.3 % (11.5-14.5); RDW Standard Deviation 52.9 fL (36.4-46.3); Red Blood Count 5.58 M/uL (4.2-5.4); White Blood Count 8.86 K/uL (4.8-10.8)
[2021-01-11 06:27] LABS: BUN Creatinine Ratio 26.5 (10-20); Creatinine Clr Calc Pharmacy 44.3 ml/min; Est GFR (African American) 67.1 ml/min; Est GFR (Non-African American) 57.9 ml/min; Magnesium 2.3 mg/dl (1.8-2.4); Phosphorus 3.4 mg/dl (2.5-4.9); Potassium 4.3 mmol/L (3.5-5.1)
[2021-01-11 06:29] LABS: INR 1.2 (0.9-1.1); Prothrombin Time 12.4 Seconds (9.0-12.0)
[2021-01-11 07:02] LABS: Partial Thromboplastin Time 53.4 Seconds (21.0-31.0)
[2021-01-11] MEDS: SODIUM CHLOR 7% 4 ML NEB NEB SCH ×2 (07:05→19:53)
[2021-01-11] MEDS: BUDESONIDE 0.5 MG/2 ML VIAL (PULMICORT) NEB SCH ×2 (07:05→19:52)
[2021-01-11] MEDS: FORMOTEROL 20 MCG/2 ML VIAL NEB SCH ×2 (07:05→19:52)
--- NOTE | 2021-01-11 07:14 | Hospitalist Progress Note ---
Date of Service January 11, 2021 Assessment & Plan (1) Acute on chronic diastolic (congestive) heart failure: Severe pulmonary hypertension Cor pulmonale with severe dilatation and failure of the right heart -Admit to telemetry -IV Lasix 60 mg administered in the ER, now on 40 IV lasix bid, responding well -Spironolactone also added by cardiology -continue to monitor strict I's/O's, daily weights, Home dosing of lasix 40 mg PO BID. - Pt reports her dry weight is 148, does not weigh herself daily, admits to worsening edema in BLE. On admission is 148 lbs - however she may not know her weight and answer unreliable? - BNP is ~8000 on admission. - 2 D echo ordered - Right ventricle is severely dilated. Right ventricular systolic function is severely reduced. Left ventricular is normal in size. Flattened septum is consistent with RV pressure overload. EF 35 to 40%. Left atrial size is normal. Right atrium is severely dilated. There is moderate to severe tricuspid regurg. Severe pulmonary hypertension. - Cardiology consulted -continue diuresis with IV Lasix, spironolactone added and dose increased - CXR does not show infiltrate or specific fluid overload although she has distinct crackles on exam. CT chest noncontrast obtained, see below. Aflutter - 01/08 -patient went into a flutter, then sinus tachycardia, resolved spont aneously Discussed with cardiology, patient was started on metoprolol and IV heparin Now pt started on Eliquis - Rx sent to pt's pharmacy (no copay for the pt), IV heparin stop Patient was asymptomatic during that time Now sustains in sinus rhythm (2) Acute and chronic respiratory failure: - Hx of such, on admission requiring 7 L compared to baseline of 5L at rest and 6 on exertion - Diuresis as above - Treated with Solu-Medrol, duo nebs for possibility of COPD exacerbation underlying. She reports that humidity normally does worsen her COPD. Pulmonary medicine consulted Per pulmonary medicine - Given the fact that her hemoglobin and hematocrit are elevated, I suspect that she has been more profoundly hypoxemic for a sustained period of time. This may have contributed to her elevated PA pressures. She may require more oxygen than what she reported previously. Palliative care consultation may be appropriate and is deferred to the primary admitting service (3) COPD (chronic obstructive pulmonary disease): -COPD/emphysema/restrictive lung disease -Patient denies using albuterol nebulizers at home recently, is using Ventolin HFA and Combivent however is not using spacer as she is lost it. Encourage having son trying to find it or consider replacement spacer prior to DC. -Solu-Medrol 60 mg given in the ER, will continue with prednisone 40 mg daily - Reviewed CXR, checking CT chest - Check Procal -Started azithromycin for possible COPD exacerbation -CT chest - IMPRESSION: 1. Emphysema with mild bibasilar atelectasis. 2. Low attenuating ovoid solid nodule of the basal right lower lobe measuring 1.2 x 0.8 cm has decreased in size from 2019 suggestive of benign etiology. Mild associated adjacent mucous plugging. 3. Cardiomegaly with pulmonary artery hypertension. 4. Gallbladder distention with cholelithiasis. 5. Additional findings as above. Pulmonary medicine consulted - Perforomist and budesonide. Continue albuterol Atrovent rescue nebs as needed. Continue azithromycin for potential COPD exacerbation. She is not really wheezing so I do not think she needs additional systemic steroids currently. Discontinue HFA and transition to DuoNebs as needed. Consideration of outpatient PFTs may be beneficial. Pulmonary rehabilitation may also be a consideration Bacteremia -Overnight gram-positive cocci noted in one of the blood cultures, started overnight on vancomycin. group B strep -continue Rocephin for now, stopped vancomycin There is no discrete infiltrate noted on the CT scan suggestive of pneumonia, per pulm. Started Rocephin pending sensitivities and cultures. (Patient has some wounds of the lower extremity which may be a portal of entry - follows with wound care) Blood cultures repeated Wound care consulted Echo reviewed - no vegetation per [facility] ID consulted for further recommendations (4) HTN (hypertension): - Lasix as above, not on other antihypertensives (5) HLD (hyperlipidemia): - Does not take statin therapy, consider am lipid panel (6) Pulmonary hypertension: - Per Pulmonary medicine: Severe pulmonary hypertension but now EF is also reduced. Additional work-up at this point time would include right and left heart catheterizations with assessment of LVEDP and possible oxygen/vasodilator challenge. Dont think this can be performed here. Unclear if this would twisting frame changer currently. Would be reluctant to consider empiric pulmonary vasodilators and patient with likely significant components of group 2 and group 3 pulmonary hypertension without right heart cath numbers. Can continue diuretics as tolerated by kidney function. The patient additional evaluation for pulmonary hypertension is required, would recommend that she be referred either to [facility] or [facility] for consideration of right heart cath, vasodilatory studies, and long-term management. (7) Venous stasis ulcer of right lower leg with edema of right lower leg: - Following with wound clinic as outpatient. 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 Most recent wound culture cleared. Wound care consult. DVT ppx: - teds, scds CODE: DNR/DNI Dispo: From home, likely to remain in the hospital x 1-2 days Admission and Anticipated Discharge Date Admission Date: January 05, 2021 Subjective Patient seen in follow-up of acute on chronic respiratory failure with hypoxia Currently patient sitting up in the bed, in no acute distress, on ~5L O2 via NC Started initially on warfarin, checked Eliquis - pt will have no copay, Rx sent to her pharmacy Denies any fever chills, chest pain, abdominal pain, nausea or vomiting Cardiology and pulmonary medicine consulted Review of Systems Review of Systems: All systems reviewed & are unremarkable except as noted in HPI & below Constitutional: + fatigue; no fever and no chills Respiratory: + dyspnea (improved) Cardiovascular: no chest pain and no palpitations Gastrointestinal: no abdominal pain, no nausea and no vomiting Physical Exam Physical Exam: General: awake, alert, no apparent distress, on 5L of suppl. O2 Head: Normocephalic, atraumatic ENT: PERRL, EOMI, no pharyngeal exudate, endentulous, mucous membranes moist Chest: + mild bibasilar crackles, rhonchi, min wheezes (much improved from previous exam) Cardiac: RRR, HR in 60-70s Abdominal: NABS x 4 quadrants, soft, nondistended, nontender to palpation, no rebound or guarding Extremities: 1-2 + pitting peripheral edema BLE to knees, R anterior killian wound healed over, right posterior ankle wound healing, no surrounding erythema, no drainage, calves nontender to palpation Psych: Normal mood and affect Neuro: AAO x 3, strength intact bilaterally and rated 5/5, no motor deficits, s peech is clear, no peripheral sensory deficits Results & Data Results & Data ([facility]) Vital Signs (Past 12 Hours) Vital Signs Temp Pulse Resp BP Pulse Ox 01/11/21 07:05 75 18 91 01/11/21 05:02 77 16 92 01/11/21 03:58 36.9 C 75 17 133/93 92 01/10/21 23:27 36.5 C 79 14 116/79 88 L 01/10/21 19:30 36.7 C 79 17 109/84 89 L Laboratory Results 01/11/21 01/11/21 01/11/21 Range/Units 05:39 05:39 05:39 WBC 8.86 (4.8-10.8) K/uL RBC 5.58 H (4.2-5.4) M/uL Hgb 17.6 H (12.0-16.0) g/dL Hct 52.0 H (37-47) % MCV 93.2 (80-100) fL MCH 31.5 (25-34) pg MCHC 33.8 (32-36) g/dL RDW Std Deviation 52.9 H (36.4-46.3) fL RDW Coeff of Giuliana 15.3 H (11.5-14.5) % Plt Count 144 (130-400) K/uL MPV 12.4 H (7.4-10.4) fL PT 12.4 H (9.0-12.0) Seconds INR 1.2 H (0.9-1.1) APTT 53.4 H* (21.0-31.0) Seconds PTT Ratio 2.0 Sodium 134 L (136-145) mmol/L Potassium 4.3 (3.5-5.1) mmol/L Chloride 98 (98-107) mmol/L Carbon Dioxide 32 (21-32) mmol/L Anion Gap 4.0 (3-11) BUN 25 H (7-18) mg/dl Creatinine 0.96 (0.6-1.2) mg/dl Est Cr Clr Drug Dosing 44.3 ml/min Est GFR ( Amer) 67.1 ml/min Est GFR (Non-Af Amer) 57.9 ml/min BUN/Creatinine Ratio 26.5 H (10-20) Glucose 118 H (70-99) mg/dl Calcium 9.0 (8.5-10.1) mg/dl Phosphorus 3.4 (2.5-4.9) mg/dl Magnesium 2.3 (1.8-2.4) mg/dl 01/10/21 01/10/21 Range/Units 17:20 05:44 WBC (4.8-10.8) K/uL RBC (4.2-5.4) M/uL Hgb (12.0-16.0) g/dL Hct (37-47) % MCV (80-100) fL MCH (25-34) pg MCHC (32-36) g/dL RDW Std Deviation (36.4-46.3) fL RDW Coeff of Giuliana (11.5-14.5) % Plt Count 135 (130-400) K/uL MPV 12.5 H (7.4-10.4) fL PT (9.0-12.0) Seconds INR (0.9-1.1) APTT 52.1 H* (21.0-31.0) Seconds PTT Ratio 2.0 Sodium (136-145) mmol/L Potassium (3.5-5.1) mmol/L Chloride (98-107) mmol/L Carbon Dioxide (21-32) mmol/L Anion Gap (3-11) BUN (7-18) mg/dl Creatinine (0.6-1.2) mg/dl Est Cr Clr Drug Dosing ml/min Est GFR ( Amer) ml/min Est GFR (Non-Af Amer) ml/min BUN/Creatinine Ratio (10-20) Glucose (70-99) mg/dl Calcium (8.5-10.1) mg/dl Phosphorus (2.5-4.9) mg/dl Magnesium (1.8-2.4) mg/dl Medications Administered Current Inpatient Medications Acetaminophen (Acetaminophen 325 Mg Tab) 650 mg PO Q4H PRN PRN Reason: Moderate Pain Stop: 02/04/21 18:26 Last Admin: 01/10/21 12:54 Dose: 650 mg Documented by: Albuterol (Albut/Ipratrop 3mg/0.5mg Neb 3 Ml Vial) 3 ml NEB Q4R PRN PRN Reason: Dyspnea Stop: 02/05/21 14:59 Last Admin: 01/11/21 05:02 Dose: 3 ml Documented by: Aspirin (Aspirin 81 Mg Ectab) 81 mg PO DAILY [facility] Stop: 02/05/21 08:59 Last Admin: 01/10/21 08:44 Dose: 81 mg Documented by: Azithromycin (Azithromycin 250 Mg Tab) 250 mg PO QAM [facility] Stop: 01/12/21 18:26 Last Admin: 01/10/21 08:45 Dose: 250 mg Documented by: Budesonide (Budesonide 0.5 Mg/2 Ml Vial (Pulmicort)) 0.5 mg NEB BIDR [facility] Stop: 02/05/21 18:59 Last Admin: 01/11/21 07:05 Dose: 0.5 mg Documented by: Formoterol Fumarate (Formoterol 20 Mcg/2 Ml Vial) 20 mcg NEB BIDR [facility] Stop: 02/05/21 11:59 Last Admin: 01/11/21 07:05 Dose: 20 mcg Documented by: Guaifenesin (Guaifenesin 600 Mg Tabcr) 1,200 mg PO Q12 [facility] Stop: 02/08/21 20:59 Last Admin: 01/10/21 21:04 Dose: Not Given Documented by: Ceftriaxone Sodium 1,000 mg/ (Dextrose) 50 mls @ 100 mls/hr IV Q24H [facility]; Protocol Stop: 01/20/21 11:59 Last Infusion: 01/10/21 12:54 Dose: Infused Documented by: Heparin Sodium/Dextrose (Heparin Sodium/Dextrose) 25,000 units in 500 mls @ 18 mls/hr IV .Q24H [facility]; Protocol Stop: 02/07/21 13:14 Last Admin: 01/10/21 20:57 Dose: 900 units/hr, 18 mls/hr Documented by: Furosemide 40 mg/ Syringe 4 mls @ 4 mls/min IV DAILY [facility] Stop: 02/10/21 08:59 Lactobacillus Acidoph/Casei/Rhamnos (Advanced Probiotic 1250 Mg Capsule) 2 cap PO DAILY [facility] Stop: 02/08/21 11:14 Last Admin: 01/10/21 08:46 Dose: 2 cap Documented by: Losartan Potassium (Losartan Potassium 25 Mg Tab) 25 mg PO QAM [facility] Stop: 02/08/21 10:59 Last Admin: 01/10/21 08:46 Dose: 25 mg Documented by: Metoprolol Succinate (Metoprolol Succ 25mg Ext Rel Tab) 12.5 mg PO BID [facility] Stop: 02/07/21 20:59 Last Admin: 01/10/21 21:02 Dose: 12.5 mg Documented by: Ondansetron HCl (Ondansetron Inj 2 Mg/Ml 2 Ml Vial) 4 mg IV Q4H PRN PRN Reason: Nausea And Vomiting Stop: 02/04/21 18:26 Prednisone (Prednisone 20 Mg Tab) 40 mg PO DAILY [facility] Stop: 02/05/21 08:59 Sodium Chloride (Sodium Chlor 7% 4 Ml Neb) 4 ml NEB BIDR [facility] Stop: 02/08/21 18:59 Last Admin: 01/11/21 07:05 Dose: Not Given Documented by: Spironolactone (Spironolactone 12.5 Mg Tab) 12.5 mg PO BID [facility] Stop: 02/06/21 20:59 Last Admin: 01/10/21 21:02 Dose: 12.5 mg Documented by: Umeclidinium [place] (Umeclidinium [place] 62.5mcg/Blister 7 Puffs/Inhaler) 1 puffs INH DAILY [facility] Stop: 02/05/21 11:59 Last Admin: 01/10/21 08:48 Dose: 1 puffs Documented by: Vitamin B Complex (Vitamin B Complex Tab) 1 tab PO DAILY [facility] Stop: 02/05/21 08:59 Last Admin: 01/10/21 08:48 Dose: 1 tab Documented by: Vitamin D (Cholecalciferol 1,000 Units 25 Mcg Tab) 5,000 units PO DAILY [facility] Stop: 02/05/21 08:59 Last Admin: 01/10/21 08:45 Dose: 5,000 units Documented by: Warfarin Sodium (Warfarin Sod 5 Mg Tab) 5 mg PO DAILY@1600 [facility] Stop: 02/09/21 15:59 Last Admin: 01/10/21 16:32 Dose: Not Given Documented by: (1) Acute and chronic respiratory failure Respiratory failure complication: hypoxia Qualified Code(s): J96.21 - Acute and chronic respiratory failure with hypoxia
[2021-01-11] MEDS: FUROSEMIDE 40 MG in SYRINGE 0 ML IV SCH (08:20)
[2021-01-11] MEDS: VITAMIN B COMPLEX TAB PO SCH (08:20)
[2021-01-11] MEDS: CHOLECALCIFEROL 1,000 UNITS 25 MCG TAB PO SCH (08:20)
[2021-01-11] MEDS: guaiFENesin 600 MG TABCR PO SCH ×2 (08:21→20:16)
[2021-01-11] MEDS: LOSARTAN POTASSIUM 25 MG TAB PO SCH (08:21)
[2021-01-11] MEDS: METOPROLOL SUCC 25MG EXT REL TAB PO SCH ×2 (08:21→20:17)
[2021-01-11] MEDS: ASPIRIN 81 MG ECTAB PO SCH (08:21)
[2021-01-11] MEDS: SPIRONOLACTONE 12.5 MG TAB PO SCH ×2 (08:21→20:16)
[2021-01-11] MEDS: UMECLIDINIUM BROMIDE 62.5MCG/BLISTER 7 PUFFS/INHALER INH SCH (08:23)
[2021-01-11] MEDS: ADVANCED PROBIOTIC 1250 MG CAPSULE PO SCH (08:24)
[2021-01-11] MEDS: AZITHROMYCIN 250 MG TAB PO SCH (08:24)
[2021-01-11] MEDS: cefTRIAXone SODIUM 1,000 MG in DEXTROSE 5% 50 ML IV SCH (12:04)
[2021-01-11] MEDS: HEPARIN SODIUM/DEXTROSE 25,000 UNITS/500 ML BAG IV SCH (14:27)
--- NOTE | 2021-01-11 19:07 | Cardiology Progress Note ---
Date of Service January 11, 2021 Assessment & Plan (1) Atrial flutter, paroxysmal: (2) Acute on chronic right-sided congestive heart failure: (3) Chronic respiratory failure with hypoxia, on home O2 therapy: (4) Chronic venous insufficiency: * Agree with ongoing antibiotic therapy given group B strep on 1 of 2 blood cultures, also history of MRSA cellulitis * Patient declines treatment with Coumadin in terms of stroke prophylaxis. She has had very high risk of developing recurrent atrial arrhythmias given biatrial enlargement, severe right ventricular chamber enlargement and RV dysfunction. She is agreeable to treatment EliquDr. Jamilah art confirmed that this would be affordable for her as an outpatient, and will therefore transition her to this. * Continue IV furosemide, spironolactone. Oxygen supplementation. * I reviewed past echocardiogram studies dating back to Nov, 2018, with severe right ventricular dysfunction and pulmonary hypertension noted at that time. * I am not certain that the left ventricular systolic function has really changed much, but there is abnormal septal motion consistent with RV pressure and volume overload. Agree with pulmonary medicine assessment the patient likely has group II (left heart failure) or group III (secondary to lung disease/ hypoxia) pulmonary hypertension. * Provocative left and right heart catheterization for hemodynamics vasodilatory effects a consideration, but not sure would change the management or ultimate trajectory in this patient. Admission and Anticipated Discharge Date Admission Date: January 05, 2021 Subjective Patient seen in cardiology follow-up of her chief complaint of shortness of breath. She feels well at rest, but notes dyspnea with minimal exertion.Telemetry reveals sinus rhythm without recurrent atrial fibrillation/atrial flutter in the last 24 hours. Significant oxygen requirement noted, 5 L nasal cannula to maintain pulse oximetry of 90%. Physical Exam Physical Exam: Temp Pulse Resp BP Pulse Ox 36.4 C L 81 20 109/72 90 01/11/21 14:52 01/11/21 14:52 01/11/21 14:52 01/11/21 14:52 01/11/21 14:52 Constitutional: Chronically ill in appearance Respiratory: Rales noted bilaterally at the bases Cardiovascular: Rate/Rhythm: regular rhythm Heart Sounds: + murmur (1/6 systolic murmur) Vessels: + JVD Extremities: + edema Gastrointestinal (Abdomen): normal bowel sounds, soft, nontender, no hepatosplenomegaly Neurologic: PERRL, EOMI, accommodation nl, no face palsy, no dysarthria Results & Data ([facility]) Vital Signs (Past 12 Hours) Vital Signs Temp Pulse Pulse Resp BP Pulse Ox 01/11/21 14:52 36.4 C L 81 20 109/72 90 01/11/21 11:29 36.4 C L 70 16 100/67 93 01/11/21 08:00 77 01/11/21 07:28 36.5 C 77 20 138/88 92 01/11/21 07:05 75 18 91 Laboratory Results Coagulation 01/11/21 Range/Units 05:39 PT 12.4 H (9.0-12.0) Seconds APTT 53.4 H* (21.0-31.0) Seconds CBC 01/11/21 Range/Units 05:39 WBC 8.86 (4.8-10.8) K/uL RBC 5.58 H (4.2-5.4) M/uL Hgb 17.6 H (12.0-16.0) g/dL Hct 52.0 H (37-47) % Plt Count 144 (130-400) K/uL Comprehensive Metabolic Panel 01/11/21 Range/Units 05:39 Sodium 134 L (136-145) mmol/L Potassium 4.3 (3.5-5.1) mmol/L Chloride 98 (98-107) mmol/L Carbon Dioxide 32 (21-32) mmol/L BUN 25 H (7-18) mg/dl Creatinine 0.96 (0.6-1.2) mg/dl Glucose 118 H (70-99) mg/dl Calcium 9.0 (8.5-10.1) mg/dl Intake and Output 01/11/21 01/11/21 01/11/21 06:59 14:59 22:59 Intake Total 411 / 1161 765 / 765 Output Total 1126 / 1126 1325 / 1325 Balance -715 / 35 -560 / -560 Intake: IV 365 / 365 Heparin Sodium/Dextrose 25,000 315 / 315 units In 500 ml @ 900 UNITS/HR 18 mls/hr IV .Q24H [facility] Rx#: [id number] cefTRIAXone SODIUM 1,000 mg In 50 / 50 Dextrose 5% 50 ml @ 100 mls/hr IV Q24H [facility] Rx#:[id number] Oral 411 / 611 400 / 400 Output: Urine 1125 / 1125 1325 / 1325 # Bowel Movements
[2021-01-11] MEDS: ACETAMINOPHEN 325 MG TAB PO PRN (20:14)
[2021-01-11] MEDS: APIXABAN 5 MG TABLET PO SCH (20:15)
[2021-01-12 06:17] LABS: INR 1.2 (0.9-1.1); Prothrombin Time 12.2 Seconds (9.0-12.0)
[2021-01-12 06:30] LABS: BUN Creatinine Ratio 25.5 (10-20); Calcium 9.3 mg/dl (8.5-10.1); Est GFR (African American) 60.2 ml/min; Est GFR (Non-African American) 51.9 ml/min; Potassium 4.4 mmol/L (3.5-5.1)
[2021-01-12] MEDS: FORMOTEROL 20 MCG/2 ML VIAL NEB SCH ×2 (07:04→20:50)
[2021-01-12] MEDS: BUDESONIDE 0.5 MG/2 ML VIAL (PULMICORT) NEB SCH ×2 (07:04→20:50)
[2021-01-12] MEDS: SODIUM CHLOR 7% 4 ML NEB NEB SCH (07:06)
[2021-01-12] MEDS: AZITHROMYCIN 250 MG TAB PO SCH (08:58)
[2021-01-12] MEDS: CHOLECALCIFEROL 1,000 UNITS 25 MCG TAB PO SCH (08:58)
[2021-01-12] MEDS: METOPROLOL SUCC 25MG EXT REL TAB PO SCH ×2 (08:58→20:22)
[2021-01-12] MEDS: VITAMIN B COMPLEX TAB PO SCH (08:59)
[2021-01-12] MEDS: SPIRONOLACTONE 12.5 MG TAB PO SCH ×2 (08:59→20:24)
[2021-01-12] MEDS: ADVANCED PROBIOTIC 1250 MG CAPSULE PO SCH (08:59)
[2021-01-12] MEDS: guaiFENesin 600 MG TABCR PO SCH ×3 (08:59→20:27)
[2021-01-12] MEDS: LOSARTAN POTASSIUM 25 MG TAB PO SCH (08:59)
[2021-01-12] MEDS: UMECLIDINIUM BROMIDE 62.5MCG/BLISTER 7 PUFFS/INHALER INH SCH (09:00)
[2021-01-12] MEDS: APIXABAN 5 MG TABLET PO SCH ×2 (09:01→20:23)
[2021-01-12] MEDS: ASPIRIN 81 MG ECTAB PO SCH (09:01)
[2021-01-12] MEDS: FUROSEMIDE 40 MG in SYRINGE 0 ML IV SCH (09:37)
[2021-01-12] MEDS: cefTRIAXone SODIUM 1,000 MG in DEXTROSE 5% 50 ML IV SCH (11:19)
--- NOTE | 2021-01-12 14:53 | Cardiology Progress Note ---
Date of Service January 12, 2021 Assessment & Plan (1) Atrial flutter, paroxysmal: No further atrial arrhythmias thus 01/09, 01/10,01/11, 01/12/21. Patient agreeable to Eliquis for anticoagulation. (2) Acute on chronic right-sided congestive heart failure: Slowly improving Echocardiogram images from this hospital stay improved. Severe RV chamber dilatation and RV dysfunction noted. Moderate to severe TR due to RV chamber dilatation with tethering of the TV leaflets and RV annulus dilatation. Per review of prior echo studies performed Nov, 2018 RV disfunction present at that time with similar pulmonary systolic pressures in the 60 mm Hg range then. Abnormal septal motion noted due to RV pressure / volume overload status > than LV dysfunction. Patient describes starting smoking at age of 14 and smoke heavily for 20 years. Her father had "emphysema". H/o MRSA bacteremia on LE wound cultures earlier this year, 1/4 blood cultures with Group B strep this admission. Agree with empiric antibiotics. No valvular vegetation within the scope of transthoracic echo. Continue furosemide 40 mg IV daily and spironolactone spironlactone. Perhaps transition to torsemide 10 mg or 20 mg daily at discharge rather than [facility]MI[facility] furosemide 40 mg daily. I am not certain that the left ventricular systolic function has really changed much, but there is abnormal septal motion consistent with RV pressure and volume overload. Agree with pulmonary medicine assessment the patient likely has group II (left heart failure) or group III (secondary to lung disease/ hypoxia) pulmonary hypertension. * Provocative left and right heart catheterization for hemodynamics vasodilatory effects a consideration, but not sure would change the management or ultimate trajectory in this patient. (3) Chronic respiratory failure with hypoxia, on home O2 therapy: (4) Chronic venous insufficiency: Admission and Anticipated Discharge Date Admission Date: January 05, 2021 Subjective Patient seen in follow up of shortness of breath and atrial fibrillation / flutter. States she is feeling improved. Was on O2 4 L/m when I saw her, typically uses 5 l/min at home. Physical Exam Physical Exam: Temp Pulse Resp BP Pulse Ox 36.4 C L 79 18 128/91 92 01/12/21 11:34 01/12/21 11:34 01/12/21 11:34 01/12/21 11:34 01/12/21 11:34 Constitutional: WD/WN, vitals as above Respiratory: mild bibasilar rales, improved compared to 01/11 Cardiovascular: Rate/Rhythm: regular rhythm Heart Sounds: + murmur (1/6 M) Vessels: + JVD Extremities: + edema (1+ LLE edema, wound dressed) Results & Data ([facility]) Vital Signs (Past 12 Hours) Vital Signs Temp Pulse Resp BP Pulse Ox 01/12/21 11:34 36.4 C L 79 18 128/91 92 01/12/21 07:23 36.4 C L 73 18 117/79 93 01/12/21 07:06 74 16 91 01/12/21 04:23 35.7 C L 77 18 119/79 93 Laboratory Results Coagulation 01/12/21 Range/Units 05:44 PT 12.2 H (9.0-12.0) Seconds Comprehensive Metabolic Panel 01/12/21 Range/Units 05:44 Sodium 136 (136-145) mmol/L Potassium 4.4 (3.5-5.1) mmol/L Chloride 101 (98-107) mmol/L Carbon Dioxide 29 (21-32) mmol/L BUN 27 H (7-18) mg/dl Creatinine 1.05 (0.6-1.2) mg/dl Glucose 104 H (70-99) mg/dl Calcium 9.3 (8.5-10.1) mg/dl Intake and Output 01/11/21 01/12/21 01/12/21 22:59 06:59 14:59 Intake Total 800 / 1565 625 / 625 Output Total 301 / 1626 1053 / 1053 Balance 499 / -61 -428 / -428 Intake: IV 50 / 50 cefTRIAXone SODIUM 1,000 mg In 50 / 50 Dextrose 5% 50 ml @ 100 mls/hr IV Q24H [facility] Rx#:[id number] Oral 800 / 1200 575 / 575 Output: Urine 300 / 1625 1050 / 1050 # Bowel Movements 1 / 1 3 / 3 Other: # Unmeasured Voids 1 1 Weight 61.6 kg Weight Measurement Method Standing Scale
[2021-01-12] MEDS: ALBUT/IPRATROP 3MG/0.5MG NEB 3 ML VIAL NEB PRN (16:21)
[2021-01-12] MEDS ORDERED: ALBUTEROL HFA 8 GM INHALER INH PRN (16:26)
--- NOTE | 2021-01-12 17:05 | Hospitalist Progress Note ---
Date of Service January 12, 2021 Assessment & Plan (1) Acute on chronic diastolic (congestive) heart failure: Acute on chronic diastolic heart failure Severe pulmonary hypertension Cor pulmonale -CXR:Cardiomegaly with pulmonary artery hypertension. Emphysema with progressive reticular interstitial opacities. Findings may represent progressive fibrosis or mild pulmonary edema. An interstitial pneumonitis is considered less likely. -ECHO: Right ventricle is severely dilated. Right ventricle systolic function is severely reduced. Left ventricle is normal in size. EF 35 to 40%. Flattened septum is consistent with RV pressure overload. Right atrium is severely dilated. Moderate to severe tricuspid regurgitation. Severe pulmonary hypertension. -Continue IV Lasix Monitor I's and O's, daily weight, renal function, electrolytes Appreciate cardiology input -Continue spironolactone A.flutter Currently in sinus IV heparin transition to Eliquis Continue metoprolol Appreciate cardiology input (2) Acute and chronic respiratory failure: Acute on chronic respiratory failure with hypoxia Chronic oxygen dependency--on 5-6 liters at baseline COPD/emphysema/restrictive -CT chest: Emphysema with mild bibasilar atelectasis. Low attenuating ovoid solid nodule of the basal right lower lobe measuring 1.2 x 0.8 cm has decreased in size from 2019 suggestive of benign etiology. Mild associated adjacent mucous plugging. Cardiomegaly with pulmonary artery hypertension. Gallbladder distention with cholelithiasis. -Normal procalcitonin -Continue azithromycin to complete 7-day course -Received Solu-Medrol, duo nebs, hypertonic saline nebs -Continue Perforomist, budesonide, Incruse Appreciate pulmonology input Continue supplemental oxygen Outpatient PFTs Needs follow-up with pulmonology upon discharge (3) COPD (chronic obstructive pulmonary disease): Management as above Bacteremia ;Possible source: leg wounds 1/2 Blood Cx: Group B beta strep, coagulase-negative staph, gamma strep not Enterococcus Repeat blood culture negative Echo as above IV vancomycin discontinued Appreciate ID input Continue IV Rocephin for now Plan to discharge on Keflex as able Continue wound care (4) HTN (hypertension): Continue losartan, metoprolol (5) HLD (hyperlipidemia): Not on statin (6) Pulmonary hypertension: -As Per Pulmonary medicine: Severe pulmonary hypertension but now EF is also reduced. Additional work-up at this point time would include right and left heart catheterizations with assessment of LVEDP and possible oxygen/vasodilator challenge. Dont think this can be performed here. Unclear if this would change manager currently. Would be reluctant to consider empiric pulmonary vasodilators and patient with likely significant components of group 2 and group 3 pulmonary hypertension without right heart cath numbers. Can continue diuretics as tolerated by kidney function. The patient additional evaluation for pulmonary hypertension is required, would recommend that she be referred either to [facility] or [facility] for consideration of right heart cath, vasodilatory studies, and long-term management. (7) Venous stasis ulcer of right lower leg with edema of right lower leg: Follows with wound clinic as outpatient. Continue antibiotics as above Wound Care DVT px: Eliquis CODE STATUS: DNR/DNI Admission and Anticipated Discharge Date Admission Date: January 05, 2021 Subjective Patient is seen and examined at bedside States feeling better today Reports dyspnea on exertion Saturating well on supplemental oxygen Denies chest pain, dizziness, nausea, abdominal pain Offers no other complaints Review of Systems Review of Systems: All systems reviewed & are unremarkable except as noted in HPI & below Physical Exam Physical Exam: Physical Exam: Vitals signs as noted above General Appearance:Moderately built and nourished, no apparent distress Head: normocephalic, Atraumatic Eyes: normal inspection, EOMI Neck: supple, Trachea midline Respiratory/Chest: Decreased breath sounds, CTA, No accessory muscle use Cardiovascular: S1, S2, +murmur Abdomen/GI:Soft, Non tender, Bowel sounds present Extremities/Musculoskeletal:normal inspection, LE edema, RLE wound in dressing Neurologic/Psych:AAOX3, grossly no focal neurological deficits Skin: normal color, warm Results & Data Results & Data ([facility]) Vital Signs (Past 12 Hours) Vital Signs Temp Pulse Resp BP Pulse Ox 01/12/21 16:21 74 20 93 01/12/21 15:23 36.3 C L 75 18 112/78 92 01/12/21 11:34 36.4 C L 79 18 128/91 92 01/12/21 07:23 36.4 C L 73 18 117/79 93 01/12/21 07:06 74 16 91 Laboratory Results [facility] 01/12/21 05:44 Sodium 136 Potassium 4.4 Chloride 101 Carbon Dioxide 29 BUN 27 H Creatinine 1.05 Glucose 104 H Calcium 9.3 (1) Acute and chronic respiratory failure Respiratory failure complication: hypoxia Qualified Code(s): J96.21 - Acute and chronic respiratory failure with hypoxia
[2021-01-12] MEDS: ACETAMINOPHEN 325 MG TAB PO PRN (18:25)
[2021-01-13] MEDS: ACETAMINOPHEN 325 MG TAB PO PRN ×2 (06:28→13:14)
[2021-01-13] MEDS: BUDESONIDE 0.5 MG/2 ML VIAL (PULMICORT) NEB SCH ×2 (07:09→19:53)
[2021-01-13] MEDS: FORMOTEROL 20 MCG/2 ML VIAL NEB SCH ×2 (07:09→19:53)
[2021-01-13 07:42] LABS: BUN Creatinine Ratio 27.1 (10-20); Calcium 9.4 mg/dl (8.5-10.1); Creatinine Clr Calc Pharmacy 41.6 ml/min; Est GFR (African American) 63.1 ml/min; Est GFR (Non-African American) 54.4 ml/min; Magnesium 2.1 mg/dl (1.8-2.4); Potassium 4.1 mmol/L (3.5-5.1)
[2021-01-13] MEDS: LOSARTAN POTASSIUM 25 MG TAB PO SCH (08:50)
[2021-01-13] MEDS: ASPIRIN 81 MG ECTAB PO SCH ×2 (08:50→09:01)
[2021-01-13] MEDS: UMECLIDINIUM BROMIDE 62.5MCG/BLISTER 7 PUFFS/INHALER INH SCH (08:50)
[2021-01-13] MEDS: SPIRONOLACTONE 12.5 MG TAB PO SCH (08:51)
[2021-01-13] MEDS: VITAMIN B COMPLEX TAB PO SCH (08:51)
[2021-01-13] MEDS: CHOLECALCIFEROL 1,000 UNITS 25 MCG TAB PO SCH (08:51)
[2021-01-13] MEDS: ADVANCED PROBIOTIC 1250 MG CAPSULE PO SCH (08:51)
[2021-01-13] MEDS: METOPROLOL SUCC 25MG EXT REL TAB PO SCH ×2 (08:51→20:52)
[2021-01-13] MEDS: guaiFENesin 600 MG TABCR PO SCH ×2 (09:01→20:51)
[2021-01-13] MEDS: APIXABAN 5 MG TABLET PO SCH ×2 (09:01→20:56)
[2021-01-13] MEDS ORDERED: FUROSEMIDE 40 MG/4 ML VIAL IV ONE (11:10)
[2021-01-13] MEDS: FUROSEMIDE 40 MG in SYRINGE 0 ML IV SCH (11:16)
[2021-01-13] MEDS: cefTRIAXone SODIUM 1,000 MG in DEXTROSE 5% 50 ML IV SCH (13:15)
--- NOTE | 2021-01-13 16:09 | Cardiology Progress Note ---
Date of Service January 13, 2021 Assessment & Plan (1) Acute on chronic right-sided congestive heart failure: (2) Atrial flutter, paroxysmal: (3) Chronic respiratory failure with hypoxia, on home O2 therapy: Discontinue furosemide 40 mg IV daily, transition to torsemide 20 mg p.o. daily tomorrow. Transition spironolactone to 25 mg daily. Transition metoprolol succinate to 25 mg daily in the morning. Continue Eliquis 5 mg twice daily. No additional atrial arrhythmias noted on telemetry. Continue supplemental oxygen. Admission and Anticipated Discharge Date Admission Date: January 05, 2021 Subjective Patient seen in cardiology follow-up. She is on 4 L nasal cannula, most recent pulse oximetry 87%. She typically utilizes 5 L nasal cannula at home. Physical Exam Physical Exam: Temp Pulse Resp BP Pulse Ox 35.8 C L 78 18 123/84 87 L 01/13/21 14:47 01/13/21 14:47 01/13/21 14:47 01/13/21 14:47 01/13/21 14:47 Respiratory: Auscultation: no rales and no wheezes Cardiovascular: Rate/Rhythm: regular rhythm Heart Sounds: + murmur (1/6 SM) Vessels: + JVD Extremities: + edema (1+ LLE edema) Results & Data ([facility]) Vital Signs (Past 12 Hours) Vital Signs Temp Pulse Resp BP Pulse Ox 01/13/21 14:47 35.8 C L 78 18 123/84 87 L 01/13/21 11:02 36.2 C L 79 19 123/78 90 01/13/21 07:12 36.4 C L 73 18 129/83 95 01/13/21 07:09 72 20 93 01/13/21 04:29 36.7 C 79 16 136/86 89 L Laboratory Results Comprehensive Metabolic Panel 01/13/21 Range/Units 07:01 Sodium 135 L (136-145) mmol/L Potassium 4.1 (3.5-5.1) mmol/L Chloride 98 (98-107) mmol/L Carbon Dioxide 31 (21-32) mmol/L BUN 27 H (7-18) mg/dl Creatinine 1.01 (0.6-1.2) mg/dl Glucose 120 H (70-99) mg/dl Calcium 9.4 (8.5-10.1) mg/dl Intake and Output 01/13/21 01/13/21 01/13/21 06:59 14:59 22:59 Intake Total 200 / 1525 520 / 520 Output Total 1250 / 1250 Balance 200 / 122 520 / -730 -1250 / -730 Intake: IV 50 / 50 cefTRIAXone SODIUM 1,000 mg In 50 / 50 Dextrose 5% 50 ml @ 100 mls/hr IV Q24H [facility] Rx#:[id number] Oral 200 / 975 470 / 470 Output: Urine Amount (Catheter) 1250 / 1250 Fem Cath 1250 / 1250 Other: # Unmeasured Voids 1
--- NOTE | 2021-01-13 17:54 | Hospitalist Progress Note ---
Date of Service January 13, 2021 Assessment & Plan (1) Acute on chronic diastolic (congestive) heart failure: Acute on chronic diastolic heart failure Severe pulmonary hypertension Cor pulmonale -CXR:Cardiomegaly with pulmonary artery hypertension. Emphysema with progressive reticular interstitial opacities. Findings may represent progressive fibrosis or mild pulmonary edema. An interstitial pneumonitis is considered less likely. -ECHO: Right ventricle is severely dilated. Right ventricle systolic function is severely reduced. Left ventricle is normal in size. EF 35 to 40%. Flattened septum is consistent with RV pressure overload. Right atrium is severely dilated. Moderate to severe tricuspid regurgitation. Severe pulmonary hypertension. -Received IV Lasix Monitor I's and O's, daily weight, renal function, electrolytes Appreciate cardiology input -Transition to torsemide 20 mg daily Increased Aldactone to 25 mg daily Continue metoprolol succinate 25 mg daily Needs follow-up with cardiology upon discharge Kathy Currently in sinus IV heparin transitioned to Eliquis Continue metoprolol Appreciate cardiology input (2) Acute and chronic respiratory failure: Acute on chronic respiratory failure with hypoxia Chronic oxygen dependency--on 5-6 liters at baseline COPD/emphysema/restrictive -CT chest: Emphysema with mild bibasilar atelectasis. Low attenuating ovoid solid nodule of the basal right lower lobe measuring 1.2 x 0.8 cm has decreased in size from 2019 suggestive of benign etiology. Mild associated adjacent mucous plugging. Cardiomegaly with pulmonary artery hypertension. Gallbladder distention with cholelithiasis. -Normal procalcitonin -Completed Azithromycin course -Received Solu-Medrol, duo nebs, hypertonic saline nebs -Continue Perforomist, budesonide, Incruse Appreciate pulmonology input Continue supplemental oxygen Outpatient PFTs Needs follow-up with pulmonology upon discharge (3) COPD (chronic obstructive pulmonary disease): Management as above Bacteremia Possible source: leg wounds 1/2 Blood Cx: Group B beta strep, coagulase-negative staph, gamma strep not Enterococcus Repeat blood culture negative Echo as above IV vancomycin discontinued Appreciate ID input Continue IV Rocephin while hospitalized Plan to discharge on Keflex as able Continue wound care (4) HTN (hypertension): Continue losartan, metoprolol (5) HLD (hyperlipidemia): Not on statin (6) Pulmonary hypertension: -As Per Pulmonary medicine: Severe pulmonary hypertension but now EF is also reduced. Additional work-up at this point time would include right and left heart catheterizations with assessment of LVEDP and possible oxygen/vasodilator challenge. Dont think this can be performed here. Unclear if this would belt changer currently. Would be reluctant to consider empiric pulmonary vasodilators and patient with likely significant components of group 2 and group 3 pulmonary hypertension without right heart cath numbers. Can continue diuretics as tolerated by kidney function. The patient additional evaluation for pulmonary hypertension is required, would recommend that she be referred either to [facility] or [facility] for consideration of right heart cath, vasodilatory studies, and long-term management. (7) Venous stasis ulcer of right lower leg with edema of right lower leg: Follows with wound clinic as outpatient. Continue antibiotics as above Wound Care DVT px: Eliquis CODE STATUS: DNR/DNI Disposition Home with home health Admission and Anticipated Discharge Date Admission Date: January 05, 2021 Subjective Patient is seen and examined at bedside No new complaints Doing well Saturating well on baseline supplemental oxygen Denies chest pain, dyspnea, dizziness, nausea, abdominal pain Review of Systems Review of Systems: All systems reviewed & are unremarkable except as noted in HPI & below Physical Exam Physical Exam: Physical Exam: Vitals signs as noted above General Appearance:Moderately built and nourished, no apparent distress Head: normocephalic, Atraumatic Eyes: normal inspection, EOMI Neck: supple, Trachea midline Respiratory/Chest: Decreased breath sounds, CTA, No accessory muscle use Cardiovascular: S1, S2, +murmur Abdomen/GI:Soft, Non tender, Bowel sounds present Extremities/Musculoskeletal:normal inspection, LE edema, RLE wound in dressing Neurologic/Psych:AAOX3, grossly no focal neurological deficits Skin: normal color, warm Results & Data Results & Data ([facility]) Vital Signs (Past 12 Hours) Vital Signs Temp Pulse Resp BP Pulse Ox 01/13/21 14:47 35.8 C L 78 18 123/84 87 L 01/13/21 11:02 36.2 C L 79 19 123/78 90 01/13/21 07:12 36.4 C L 73 18 129/83 95 01/13/21 07:09 72 20 93 Laboratory Results [facility] 01/13/21 07:01 Sodium 135 L Potassium 4.1 Chloride 98 Carbon Dioxide 31 BUN 27 H Creatinine 1.01 Glucose 120 H Calcium 9.4 (1) Acute and chronic respiratory failure Respiratory failure complication: hypoxia Qualified Code(s): J96.21 - Acute and chronic respiratory failure with hypoxia
[2021-01-14 06:28] LABS: Hemoglobin 17.2 g/dL (12.0-16.0); Mean Corpuscular Hemoglobin 31.6 pg (25-34); Mean Corpuscular Hgb Conc 33.7 g/dL (32-36); Mean Corpuscular Volume 93.6 fL (80-100); Mean Platelet Volume 11.8 fL (7.4-10.4); Platelet Count 172 K/uL (130-400); RDW Coefficient of Variation 15.4 % (11.5-14.5); RDW Standard Deviation 52.4 fL (36.4-46.3); Red Blood Count 5.45 M/uL (4.2-5.4); White Blood Count 10.51 K/uL (4.8-10.8)
[2021-01-14 06:57] LABS: BUN Creatinine Ratio 27.4 (10-20); Calcium 9.3 mg/dl (8.5-10.1); Creatinine Clr Calc Pharmacy 38.5 ml/min; Est GFR (African American) 57.5 ml/min; Est GFR (Non-African American) 49.6 ml/min; Potassium 4.3 mmol/L (3.5-5.1)
[2021-01-14] MEDS: FORMOTEROL 20 MCG/2 ML VIAL NEB SCH (07:09)
[2021-01-14] MEDS: BUDESONIDE 0.5 MG/2 ML VIAL (PULMICORT) NEB SCH (07:13)
[2021-01-14] MEDS: ASPIRIN 81 MG ECTAB PO SCH (08:53)
[2021-01-14] MEDS: CHOLECALCIFEROL 1,000 UNITS 25 MCG TAB PO SCH (08:53)
[2021-01-14] MEDS: ADVANCED PROBIOTIC 1250 MG CAPSULE PO SCH (08:53)
[2021-01-14] MEDS: guaiFENesin 600 MG TABCR PO SCH (08:54)
[2021-01-14] MEDS: APIXABAN 5 MG TABLET PO SCH (08:54)
[2021-01-14] MEDS: LOSARTAN POTASSIUM 25 MG TAB PO SCH (08:55)
[2021-01-14] MEDS: UMECLIDINIUM BROMIDE 62.5MCG/BLISTER 7 PUFFS/INHALER INH SCH (08:55)
[2021-01-14] MEDS: VITAMIN B COMPLEX TAB PO SCH (08:55)
[2021-01-14] MEDS ORDERED: TORSEMIDE 10 MG TAB PO SCH (09:00)
[2021-01-14] MEDS ORDERED: METOPROLOL SUCC 25MG EXT REL TAB PO SCH (09:00)
[2021-01-14] MEDS ORDERED: SPIRONOLACTONE 25 MG TAB PO SCH (09:00)
[2021-01-14] MEDS: cefTRIAXone SODIUM 1,000 MG in DEXTROSE 5% 50 ML IV SCH (11:28)
--- NOTE | 2021-01-14 13:14 | Cardiology Progress Note ---
Date of Service January 14, 2021 Assessment & Plan (1) Acute on chronic right-sided congestive heart failure: Echocardiogram images from this hospital stay improved. Severe RV chamber dilatation and RV dysfunction noted. Moderate to severe TR due to RV chamber dilatation with tethering of the TV leaflets and RV annulus dilatation. Per review of prior echo studies performed Nov, 2018 RV disfunction present at that time with similar pulmonary systolic pressures in the 60 mm Hg range then. Abnormal septal motion noted due to RV pressure / volume overload status > than LV dysfunction. Patient describes starting smoking at age of 14 and smoke heavily for 20 years. Her father had "emphysema". H/o MRSA bacteremia on LE wound cultures earlier this year, 1/4 blood cultures with Group B strep this admission. Agree with empiric antibiotics. No valvular vegetation within the scope of transthoracic echo. -Transitioned to torsemide 20 mg PO daily. -spironolactone and losartan added this admission. I am not certain that the left ventricular systolic function has really changed much, but there is abnormal septal motion consistent with RV pressure and volume overload. Agree with pulmonary medicine assessment the patient likely has group II (left heart failure) or group III (secondary to lung disease/ hypoxia) pulmonary hypertension. * Provocative left and right heart catheterization for hemodynamics vasodilatory effects a consideration, but not sure would change the management or ultimate trajectory in this patient. (2) Atrial flutter, paroxysmal: No further atrial arrhythmias thus 01/09, 01/10,01/11, 01/12/21. Patient agreeable to Eliquis for anticoagulation. Metoprolol added this admission. (3) Chronic respiratory failure with hypoxia, on home O2 therapy: Admission and Anticipated Discharge Date Admission Date: January 05, 2021 Charlene Soria is seen in cardiology follow up Telemetry reveals SR in the 70s. She is on 4 L min O2 and is typically on 5 L/m at home. She notes interval improvement compared to presentation. Physical Exam Physical Exam: Temp Pulse Resp BP Pulse Ox 36.8 C 99 H 20 142/89 H 91 01/14/21 06:59 01/14/21 07:13 01/14/21 07:13 01/14/21 06:59 01/14/21 07:13 Constitutional: WD/WN, vitals as above Respiratory: normal respiratory effort, lungs clear to auscultation Cardiovascular: Rate/Rhythm: regular rhythm Heart Sounds: no murmur Vessels: no JVD Extremities: + edema (1+ RLE neda, no LLE edema) Gastrointestinal (Abdomen): Inspection/Auscultation: + abdominal edema Neurologic: PERRL, EOMI, accommodation nl, no face palsy, no dysarthria Results & Data ([facility]) Vital Signs (Past 12 Hours) Vital Signs Temp Pulse Resp BP Pulse Ox 01/14/21 07:13 99 H 20 91 01/14/21 06:59 36.8 C 77 18 142/89 H 94 01/14/21 03:58 36.3 C L 86 18 130/86 90 Laboratory Results CBC 01/14/21 Range/Units 06:06 WBC 10.51 (4.8-10.8) K/uL RBC 5.45 H (4.2-5.4) M/uL Hgb 17.2 H (12.0-16.0) g/dL Hct 51.0 H (37-47) % Plt Count 172 (130-400) K/uL Comprehensive Metabolic Panel 01/14/21 Range/Units 06:06 Sodium 137 (136-145) mmol/L Potassium 4.3 (3.5-5.1) mmol/L Chloride 102 (98-107) mmol/L Carbon Dioxide 30 (21-32) mmol/L BUN 30 H (7-18) mg/dl Creatinine 1.09 (0.6-1.2) mg/dl Glucose 100 H (70-99) mg/dl Calcium 9.3 (8.5-10.1) mg/dl Intake and Output 01/13/21 01/14/21 01/14/21 22:59 06:59 14:59 Intake Total 100 / 620 50 / 50 Output Total 155 / 2 401 / 1952 Balance -1451 / -1332 -401 / -1332 50 / 50 Intake: IV 50 / 50 cefTRIAXone SODIUM 1,000 mg In 50 / 50 Dextrose 5% 50 ml @ 100 mls/hr IV Q24H [facility] Rx#:[id number] Oral 100 / 570 Output: Urine 300 / 700 400 / 700 Urine Amount (Catheter) 1250 / 1250 Fem Cath 1250 / 1250 # Bowel Movements 1 / 2 1 / 2 Other: Weight 61.6 kg
--- NOTE | 2021-01-14 13:34 | Hospitalist Progress Note ---
Date of Service January 14, 2021 Assessment & Plan (1) Acute on chronic diastolic (congestive) heart failure: Acute on chronic diastolic heart failure Severe pulmonary hypertension Cor pulmonale -CXR:Cardiomegaly with pulmonary artery hypertension. Emphysema with progressive reticular interstitial opacities. Findings may represent progressive fibrosis or mild pulmonary edema. An interstitial pneumonitis is considered less likely. -ECHO: Right ventricle is severely dilated. Right ventricle systolic function is severely reduced. Left ventricle is normal in size. EF 35 to 40%. Flattened septum is consistent with RV pressure overload. Right atrium is severely dilated. Moderate to severe tricuspid regurgitation. Severe pulmonary hypertension. -Received IV Lasix Monitor I's and O's, daily weight, renal function, electrolytes Appreciate cardiology input -Transition to torsemide 20 mg daily Increased Aldactone to 25 mg daily Continue metoprolol succinate 25 mg daily Volume status improved Volume status improved Needs follow-up with cardiology upon discharge Kathy Currently in sinus IV heparin transitioned to Eliquis Continue metoprolol Appreciate cardiology input (2) Acute and chronic respiratory failure: Acute on chronic respiratory failure with hypoxia Chronic oxygen dependency--on 5-6 liters at baseline COPD/emphysema/restrictive -CT chest: Emphysema with mild bibasilar atelectasis. Low attenuating ovoid solid nodule of the basal right lower lobe measuring 1.2 x 0.8 cm has decreased in size from 2019 suggestive of benign etiology. Mild associated adjacent mucous plugging. Cardiomegaly with pulmonary artery hypertension. Gallbladder distention with cholelithiasis. -Normal procalcitonin -Completed Azithromycin course -Received Solu-Medrol, duo nebs, hypertonic saline nebs -Continue Perforomist, budesonide, Incruse Appreciate pulmonology input Continue supplemental oxygen Outpatient PFTs Needs follow-up with pulmonology upon discharge (3) COPD (chronic obstructive pulmonary disease): Management as above Bacteremia Possible source: leg wounds 1/2 Blood Cx: Group B beta strep, coagulase-negative staph, gamma strep not Enterococcus Repeat blood culture negative Echo as above IV vancomycin discontinued Appreciate ID input Continue IV Rocephin while hospitalized Plan to discharge on Keflex as recommended by ID Continue wound care (4) HTN (hypertension): Continue losartan, metoprolol (5) HLD (hyperlipidemia): Not on statin (6) Pulmonary hypertension: -As Per Pulmonary medicine: Severe pulmonary hypertension but now EF is also reduced. Additional work-up at this point time would include right and left heart catheterizations with assessment of LVEDP and possible oxygen/vasodilator challenge. Dont think this can be performed here. Unclear if this would guide changer currently. Would be reluctant to consider empiric pulmonary vasodilators and patient with likely significant components of group 2 and group 3 pulmonary hypertension without right heart cath numbers. Can continue diuretics as tolerated by kidney function. The patient additional evaluation for pulmonary hypertension is required, would recommend that she be referred either to [facility] or [facility] for consideration of right heart cath, vasodilatory studies, and long-term management. (7) Venous stasis ulcer of right lower leg with edema of right lower leg: Follows with wound clinic as outpatient. Continue antibiotics as above Wound Care DVT px: Eliquis CODE STATUS: DNR/DNI Disposition Home with home health Admission and Anticipated Discharge Date Admission Date: January 05, 2021 Subjective Patient is seen and examined at bedside Intermittent cough Discussed with Cardiology today No other complaints Denies chest pain, dyspnea, dizziness, nausea, abdominal pain Review of Systems Review of Systems: All systems reviewed & are unremarkable except as noted in HPI & below Physical Exam Physical Exam: Physical Exam: Vitals signs as noted above General Appearance:Moderately built and nourished, no apparent distress Head: normocephalic, Atraumatic Eyes: normal inspection, EOMI Neck: supple, Trachea midline Respiratory/Chest: Decreased breath sounds Cardiovascular: S1, S2, +murmur Abdomen/GI:Soft, Non tender, Bowel sounds present Extremities/Musculoskeletal:normal inspection, LE edema, RLE wound in dressing Neurologic/Psych:AAOX3, grossly no focal neurological deficits Skin: normal color, warm Results & Data Results & Data ([facility]) Vital Signs (Past 12 Hours) Vital Signs Temp Pulse Resp BP Pulse Ox 01/14/21 07:13 99 H 20 91 01/14/21 06:59 36.8 C 77 18 142/89 H 94 01/14/21 03:58 36.3 C L 86 18 130/86 90 Laboratory Results Short CBC 01/14/21 Range/Units 06:06 WBC 10.51 (4.8-10.8) K/uL Hgb 17.2 H (12.0-16.0) g/dL Hct 51.0 H (37-47) % Plt Count 172 (130-400) K/uL BMP 01/14/21 06:06 Sodium 137 Potassium 4.3 Chloride 102 Carbon Dioxide 30 BUN 30 H Creatinine 1.09 Glucose 100 H Calcium 9.3 (1) Acute and chronic respiratory failure Respiratory failure complication: hypoxia Qualified Code(s): J96.21 - Acute and chronic respiratory failure with hypoxia
--- NOTE | 2021-01-14 14:06 | Discharge Summary ---
Date of Service January 14, 2021 Admission HPI Per Admitting Provider This is a 75 yo F with PMhx of chronic systolic CHF, afib, HTN, HLD, COPD, restrictive lung disease, pulmonary hypertension, chronic respiratory failure with hypoxia on home O2 at 5 L, ambulatory dysfunction, Holiness. Pt presents today for acute shortness of breath which has been coming on for about 1.5 weeks. She wears 5 L at baseline and 6 L of supplemental O2 at baseline. She admits to intermittently having a slight cough, no production, no fevers, no chills, no sweats, no sneezing, runny nose, sore throat. She did recently treat herself for thrush with some baking soda/vinegar in the past few days and feels that it is now improved. She has been using her inhalers at home but is not using the spacer, states she lost it, so was encouraged to use this or suggested to replace it. She lives at home with her son who is her caregiver. She herself reports that he takes good care of her, is not abusive, but does not always listen to her requests. She took her morning medication today. Patient has been using Lasix 40 mg twice daily. She does not weigh herself daily. She has been drinking more fluids because she feels her urine is dark whenever she limits fluid intake and takes Lasix at the same time. Reports her breathing is always a bit worse with more humidity like it has been recently. She was seen by her PCP as an outpatient who referred her to the ER last night however she did not present to the ER due to lack of transportation. Home health nurse visited her at home this morning and recommended she seek emergency care, and called an ambulance for her. Here in the ER the patient was given 2 inches of Nitropaste, Lasix 60 mg IV x1, and Solu-Medrol 60 mg IV and DuoNeb treatment for her symptoms which have now improved. COVID-19 is negative. BNP 7993. She is requiring 7 L due to hypoxia in the mid 80s on baseline of 5 L. CXR reviewed. Admission Exam Per Admitting Provider Physical Exam Physical Exam: General: awake, alert, no apparent distress Head: Normocephalic, atraumatic ENT: PERRL, EOMI, no pharyngeal exudate, endentulous, + mucous membranes erythematous, moist Chest: + Crackles throughout, on 7 L via NC, O2 sats 91%, no wheeze or rales Cardiac: NSR, slightly tachycardic with heart rate in the low 100s, no murmur, + mild JVD, normal peripheral pulses, good capillary refill Abdominal: NABS x 4 quadrants, soft, nondistended, nontender to palpation, no rebound or guarding Extremities: 3+ pitting peripheral edema BLE to knees, right lower ankle wrapped in kerlix, anterior killian wound healed over, right posterior ankle wound healing, no surrounding erythema, no drainage, calfs nontender to palpation Psych: Normal mood and affect Neuro: AAO x 3, strength intact bilaterally and rated 5/5, no motor deficits, speech is clear, no peripheral sensory deficits Principal Diagnosis Acute on chronic diastolic heart failure Severe pulmonary hypertension Cor pulmonale Atrial flutter Acute on chronic respiratory failure Bacteremia Lower extremity venous stasis ulcer Discharge Data Allergies Allergy/AdvReac Type Severity Reaction Status Date / Time No Known Allergies Allergy Verified 01/05/21 15:08 Consultations 01/05/21 16:06 ED Decision to Admit Stat 01/05/21 18:27 Consult Cardiology Routine 01/05/21 18:42 Consult Pulmonology Routine 01/09/21 11:30 Consult Infectious Diseases Routine Procedures Performed -CXR:Cardiomegaly with pulmonary artery hypertension. Emphysema with progressive reticular interstitial opacities. Findings may represent progressive fibrosis or mild pulmonary edema. An interstitial pneumonitis is considered less likely. -ECHO: Right ventricle is severely dilated. Right ventricle systolic function is severely reduced. Left ventricle is normal in size. EF 35 to 40%. Flattened septum is consistent with RV pressure overload. Right atrium is severely dilated. Moderate to severe tricuspid regurgitation. Severe pulmonary hypertension. CT chest: Emphysema with mild bibasilar atelectasis. Low attenuating ovoid solid nodule of the basal right lower lobe measuring 1.2 x 0.8 cm has decreased in size from 2019 suggestive of benign etiology. Mild associated adjacent mucous plugging. Cardiomegaly with pulmonary artery hypertension. Gallbladder distention with cholelithiasis. Ordered Studies 01/05/21 15:54 CT chest diagnostic wo con Stat 01/06/21 07:30 US gallbladder Urgent Hospital Course (1) Acute on chronic diastolic (congestive) heart failure: Acute on chronic diastolic heart failure Severe pulmonary hypertension Cor pulmonale -CXR:Cardiomegaly with pulmonary artery hypertension. Emphysema with progressive reticular interstitial opacities. Findings may represent progressive fibrosis or mild pulmonary edema. An interstitial pneumonitis is considered less likely. -ECHO: Right ventricle is severely dilated. Right ventricle systolic function is severely reduced. Left ventricle is normal in size. EF 35 to 40%. Flattened septum is consistent with RV pressure overload. Right atrium is severely dilated. Moderate to severe tricuspid regurgitation. Severe pulmonary hypertension. -Received IV Lasix Monitor I's and O's, daily weight, renal function, electrolytes Appreciate cardiology input -Transition to torsemide 20 mg daily Increased Aldactone to 25 mg daily Continue metoprolol succinate 25 mg daily Volume status improved Volume status improved Needs follow-up with cardiology upon discharge Kathy Currently in sinus IV heparin transitioned to Eliquis Continue metoprolol Appreciate cardiology input (2) Acute and chronic respiratory failure: Acute on chronic respiratory failure with hypoxia Chronic oxygen dependency--on 5-6 liters at baseline COPD/emphysema/restrictive -CT chest: Emphysema with mild bibasilar atelectasis. Low attenuating ovoid solid nodule of the basal right lower lobe measuring 1.2 x 0.8 cm has decreased in size from 2019 suggestive of benign etiology. Mild associated adjacent mucous plugging. Cardiomegaly with pulmonary artery hypertension. Gallbladder distention with cholelithiasis. -Normal procalcitonin -Completed Azithromycin course -Received Solu-Medrol, duo nebs, hypertonic saline nebs -Continue Perforomist, budesonide, Incruse Appreciate pulmonology input Continue supplemental oxygen Outpatient PFTs Needs follow-up with pulmonology upon discharge (3) COPD (chronic obstructive pulmonary disease): Management as above Bacteremia Possible source: leg wounds 1/2 Blood Cx: Group B beta strep, coagulase-negative staph, gamma strep not Enterococcus Repeat blood culture negative Echo as above IV vancomycin discontinued Appreciate ID input Continue IV Rocephin while hospitalized Plan to discharge on Keflex as recommended by ID Continue wound care (4) HTN (hypertension): Continue losartan, metoprolol (5) HLD (hyperlipidemia): Not on statin (6) Pulmonary hypertension: -As Per Pulmonary medicine: Severe pulmonary hypertension but now EF is also reduced. Additional work-up at this point time would include right and left heart catheterizations with assessment of LVEDP and possible oxygen/vasodilator challenge. Dont think this can be performed here. Unclear if this would exchange clerk currently. Would be reluctant to consider empiric pulmonary vasodilators and patient with likely significant components of group 2 and group 3 pulmonary hypertension without right heart cath numbers. Can continue diuretics as tolerated by kidney function. The patient additional evaluation for pulmonary hypertension is required, would recommend that she be referred either to [facility] or [facility] for consideration of right heart cath, vasodilatory studies, and long-term management. (7) Venous stasis ulcer of right lower leg with edema of right lower leg: Follows with wound clinic as outpatient. Continue antibiotics as above Wound Care DVT px: Eliquis CODE STATUS: DNR/DNI Disposition Home with home health Total Time Total Time Spent Total Time Spent (In Minutes): 45 minutes Total Time Includes: Examination of the Patient, Discharge Planning, Medication Reconciliation, Communication With Other Providers and Other Discharge Plan Discharge Items Patient Disposition: Home - Home Health Services Reason For Visit: CHF EXACERBATION Discharge Diagnosis: Acute on chronic diastolic heart failure Severe pulmonary hypertension Cor pulmonale Atrial flutter Acute on chronic respiratory failure Bacteremia Lower extremity venous stasis ulcer Condition on Discharge: Fair Activity: Per Instructions section Exercise/Sports: Gradually increase as tolerated Non-emergency contact: Primary Care Provider, Mill Dresser and Product Development Engineer Call non-emergency contact if: you have any medication questions, your symptoms worsen, your pain is not controlled, your pain is concerning for you and you have a fever Follow-up/Referrals: Wilder Naqvi MD [Physician] - Adriel Gutierrez DO [Mill Dresser] - 02/09/21 1:00 pm (Please follow up with Dr. Gutierrez on Sunday02/09/21 at 1:00 pm. Please arrive to the office at 12:45 pm for your appointment. If you are unable to keep this appointment, please call the office to resched ule at [phone].) Franky Choi MD [Primary Care Provider] - (Date & Time 01/19/2021 10:00 AM Provider Toni Mancuso MD Department Family Medicine [facility] ) Diet: Heart Healthy Fluids: 1800ml (7 cups) Addtl Attending Provider Instructions: Follow-up with your primary care physician Dr. Pilgram on 01/19/2021 at 10:00 AM Follow-up with your sales program coordinator Dr. Gutierrez in 4 weeks Follow-up with your safety clothing and equipment developer in 4 weeks Complete the antibiotic course as prescribed. Seek immediate medical attention if your symptoms reoccur or worsen Please take all medications as instructed on discharge list below. Please call if you have any questions or problems. You can reach a [facility] hospitalist on duty at [facility] 24 hours a day by calling [phone] Call your Primary Care doctor if any of the following symptoms or problems start or get worse: * Shortness of breath or difficulty breathing * Wake up at night short of breath * Chest pain * Cough * Swelling of your hands, feet, or legs * More fatigued or tired with your normal activity * Palpitations - sudden fast heart beats WEIGHT * Weigh yourself every morning after using the bathroom. * Use the same scale. * Wear the same amount of clothing. * Write your weight down on a chart. * Call your Primary Care doctor if you gain more than 2-3 pounds in 1-2 days. MEDICATIONS * Use this discharge instruction sheet for medication instructions. * Take your medications at the time your doctor ordered. * Do not skip a dose of your medicines. * If you miss a dose of medicine, take it as soon as possible, but DO NOT DOUBLE A DOSE. * Read your medicine information when you get home. * Know all of the side effects of your medicine. If in doubt, ask your pharmacist * Call your Primary Care doctor's office if you have any side effects. * Be sure all of your doctors know what medicine and herbs you take (including cold, flu, and herbal medicine). Take the following with you to your follow-up doctor appointments: * Weight Chart * Medication List * List of questions Do not drink excessive alcohol, beer or wine. Pending Studies at Discharge: No Stand-Alone Forms: My [facility], Smoking Cessation Medications and DC Order Prescriptions: New cephalexin 500 mg Capsule 500 mg PO BID Qty: 20 RF: 0 Incruse Ellipta 62.5 mcg/actuation Blister With Device 1 inh inhalation DAILY Qty: 30 RF: 2 losartan 25 mg Tablet 25 mg PO QAM Qty: 30 RF: 1 metoprolol succinate 25 mg Tablet Extended Release 24 Hr 25 mg PO QAM Qty: 30 RF: 1 spironolactone 25 mg Tablet 25 mg PO QAM Qty: 30 RF: 1 torsemide 10 mg Tablet 20 mg PO QAM Qty: 30 RF: 1 Advanced Probiotic 625 mg (10 billion cell) Capsule 2 cap PO DAILY Qty: 60 RF: 0 fluticasone propion-salmeterol [Advair Diskus] 250-50 mcg/dose blister with device 1 inh inhalation BID Qty: 60 RF: 2 Eliquis 5 mg Tablet 5 mg PO BID Qty: 60 RF: 1 Continued cholecalciferol (vitamin D3) 125 mcg (5,000 unit) capsule 125 mcg PO DAILY RF: 0 aspirin [Adult Aspirin Regimen] 81 mg tablet,delayed release (DR/EC) 81 mg PO DAILY RF: 0 potassium gluconate 595 mg (99 mg) tablet 595 mg PO DAILY RF: 0 Santyl 250 unit/gram ointment 1 applic topical DAILY Qty: 30 RF: 1 acetaminophen 500 mg tablet 1,000 mg PO Q8H PRN (Reason: fever or pain) Qty: 60 RF: 0 albuterol sulfate [Ventolin HFA] 90 mcg/actuation Hfa Aerosol Inhaler 2 puff INHALATION Q4H PRN (Reason: Shortness Of Breath) RF: 0 B-complex with vitamin C Capsule 1 cap PO DAILY RF: 0 albuterol sulfate 2.5 mg /3 mL (0.083 %) Solution For Nebulization 2.5 mg continuous nebulization QID RF: 0 Discontinued furosemide 40 mg tablet 40 mg PO DAILY Qty: 30 RF: 5 Combivent Respimat 20-100 mcg/actuation Mist 2 puff INHALATION QID PRN (Reason: Wheezing) RF: 0 Discharge Orders: Discharge Order (Routine); Ordered 01/14/21 Ordered By: José Miguel Marley Admission Data Admit Date/Time: 01/05/21 14:48 Attending Provider: José Miguel Marley Admit Provider: Sivakumar Askew Primary Care Provider: Franky Choi Other Providers: Sivakumar Askew ; John Landis ; Wilder Naqvi ; Parminder Nur [facility] ; Quirino Morales ; Prabhakar House ; Bo Ro I. ; Dl Walls II ; Judith Ellis ; Jr Singer
[2021-01-14] MEDS ORDERED: cephALEXin 500 MG CAP PO SCH (21:00)
== END 2021-01-14 17:03 | disposition home health service (06) | DRG 291 ==
LOC: ED 12:07 → SUATTDRO 14:48 → 2E 14:48

== ENCOUNTER 2021-03-15 21:41 | Inpatient (IN) ==
[2021-03-15 22:16] LABS: Basophils # (auto) 0.03 K/uL (0-0.2); Basophils % (auto) 0.4 %; Eosinophils # (auto) 0.12 K/uL (0-0.5); Eosinophils % (auto) 1.5 %; Hematocrit (blood only) 46.4 % (37-47); Hemoglobin 16.6 g/dL (12.0-16.0); Immature Granulocytes # (auto) 0.03 K/uL (0.00-0.02); Immature Granulocytes % (auto) 0.4 %; Lymphocytes # (auto) 2.23 K/uL (1.2-3.4); Lymphocytes % (auto) 28.1 %; Mean Corpuscular Hemoglobin 31.6 pg (25-34); Mean Corpuscular Hgb Conc 35.8 g/dL (32-36); Mean Corpuscular Volume 88.2 fL (80-100); Monocytes # (auto) 1.02 K/uL (0.11-0.59); Monocytes % (auto) 12.9 %; Neutrophils % (auto) 56.7 %; Platelet Count 155 K/uL (130-400); RDW Coefficient of Variation 13.8 % (11.5-14.5); Red Blood Count 5.26 M/uL (4.2-5.4); White Blood Count 7.93 K/uL (4.8-10.8)
[2021-03-15 22:24] LABS: Albumin Level 3.4 gm/dl (3.4-5.0); BUN Creatinine Ratio 34.4 (10-20); Calcium 9.6 mg/dl (8.5-10.1); Creatinine Clr Calc Pharmacy 27.6 ml/min; Est GFR (African American) 43.3 ml/min; Est GFR (Non-African American) 37.4 ml/min; Potassium 4.3 mmol/L (3.5-5.1)
[2021-03-15 22:25] LABS: INR 1.1 (0.9-1.1); Partial Thromboplastin Ratio 1.2; Partial Thromboplastin Time 30.9 Seconds (21.0-31.0); Prothrombin Time 10.9 Seconds (9.0-12.0)
[2021-03-15 22:27] LABS: Albumin Globulin Ratio 0.8 (0.9-2); Bilirubin,Total 0.8 mg/dl (0.2-1); Globulin 4.2 gm/dl (2.5-4.0); Total Protein 7.6 gm/dl (6.4-8.2)
[2021-03-15] MEDS ORDERED: HYDROmorphone INJ 0.5 MG/0.5 ML SYR IV PRN (23:33)
[2021-03-15] MEDS ORDERED: ONDANSETRON INJ 2 MG/ML 2 ML VIAL IV STA (23:33)
[2021-03-15] MEDS ORDERED: SODIUM CHLORIDE 0.9% 500 ML IV ONE (23:33)
[2021-03-16] MEDS ORDERED: SODIUM CHLORIDE 0.9% 1000ML 500 ML IV ONE (00:10)
[2021-03-16 00:23] LABS: Thyroid Stimulating Hormone 4.66 uIu/ml (0.300-4.500)
[2021-03-16 00:39] LABS: T4 Free Thyroxine 1.26 ng/dl (0.8-1.6)
[2021-03-16] MEDS ORDERED: oxyCODONE HCL IR 5 MG TAB (IMMEDIATE RELEASE) PO PRN (02:33)
--- NOTE | 2021-03-16 04:39 | History and Physical Report ---
DATE OF ADMISSION: 03/16/2021. CHIEF COMPLAINT: Hypotension. HISTORY OF PRESENT ILLNESS: This is a 76-year-old female with past medical history significant for chronic COPD, cor pulmonale, pulmonary hypertension, chronic systolic CHF, EF of 40%, chronic respiratory failure on home oxygen 4-5 liters while at rest and 6 liters on ambulation, Restorationism, unspecified atrial fibrillation, chronic diastolic CHF, restrictive lung disease, hypothyroidism, hyperlipidemia, chronic kidney disease stage III, ambulatory dysfunction, history of thromboembolism varicose veins. Presents with hypotension. The patient was in the hospital in December with [id number] diastolic CHF, was discharged on torsemide 20 mg daily, Aldactone 25 mg p.o. daily, also supposed to be on metoprolol succinate 25 mg daily and losartan 25 mg p.o. daily, and she is on home oxygen. The patient says she is eating very low salt, less than 1.5 g daily and she lost a lot of weight. She says she is living with her daughter since she got discharged and daughter is very strict with her diet. She states she is having a lot of hunger because she is not eating much.The medication list that she brought, it seems she is not on metoprolol, but she is taking losartan, torsemide, and Aldactone. She ambulates with a walker. Lately her blood pressure is running low at home. She saw the PCP and was told to cut the losartan to half dose and take torsemide and Aldactone as needed, but after going home the blood pressure was still low below 90s, so she came here. With the fluids, the blood pressure is improving. Currently, resting comfortably and hemodynamically stable, able to give her history. She says she swallows okay. Denies any palpitations. Denies any dizziness. She is ambulating okay with walker , but slowly. Denies any headache. Currently, no blurred visions, no earache, no runny nose, no sore throat, no cough, no fevers, no nausea, no diarrhea or constipation. Denies any blood in stool or black stools. She says her urine output has come down lately. She is also drinking a lot of water. She has right lower extremity wounds, they are healing well and she has only one more appointment with wound care clinic. Complains of back pain. ALLERGIES: No known drug allergies. PAST MEDICAL HISTORY: As mentioned above. PAST SURGICAL HISTORY: Colonoscopy, dilatation and curettage, ligation of oviducts. MEDICATIONS: Currently, the patient is on Tylenol 1000 mg p.o. q. 8 hours p.r.n., albuterol 2.5 nebulization q.i.d., albuterol sulfate HFA 2 puffs q. 4 hours p.r.n., alpha lipoic acid 200 mg as directed, Eliquis 5 mg p.o. b.i.d., aspirin 81 mg p.o. daily, vitamin D 125 mcg p.o. daily, Coenzyme Q10 200 mg p.o. daily, fluticasone/salmeterol 1 inhalation b.i.d., lactobacillus 2 capsules p.o. daily, losartan 25 mg p.o. daily, multivitamin one tablet p.o. daily, [place] fish oil 500 mg p.o. daily, potassium gluconate 595 mg p.o. daily, spironolactone 25 mg p.o. a.m., torsemide 20 mg p.o. a.m., Incruse Ellipta 1 inhalation daily, vitamin B complex 1 tablet p.o. daily. FAMILY HISTORY: Significant for maternal grandfather had colon cancer; father has heart disorder, black lung, and Alzheimer disease; maternal grandmother has Alzheimer disease. SOCIAL HISTORY: , currently lives with daughter. Quit smoking in 1978. Smoked 1 pack a day for 20 years. No alcohol use. No drug use. REVIEW OF SYSTEMS: As per HPI. Rest of the review of systems is negative. PHYSICAL EXAMINATION: GENERAL: The patient is old and frail, not in acute distress. VITAL SIGNS: Temperature 36.5, pulse 81, respiratory rate 15, blood pressure 95/56, oxygen 94% on nasal cannula. HEENT: Atraumatic. Pupils equal, round, and reactive to light. Oral mucosa moist. NECK: No JVD, no neck masses. CARDIOVASCULAR: S1 and S2 heard. Regular rate and rhythm. No murmur, no gallop. RESPIRATORY SYSTEM: Normal AP diameter. No accessory muscle use. No wheezing, no crackles. ABDOMEN: Soft, bowel sounds present, nontender, no distention. CENTRAL NERVOUS SYSTEM: Cranial nerves II-XII grossly intact, nonfocal. EXTREMITIES: No lower extremity edema present. Wounds on the right lower extremity on the killian region healing well. LABORATORY DATA: WBC 7.9, hemoglobin 16.6, hematocrit 46.4, platelets 155. PT 10.9, INR 1.1, APTT 30.9. Sodium 129, potassium 4.3, chloride 96, bicarbonate 27, BUN 47, creatinine 1.37, serum glucose 99, calcium 9.6, total bilirubin 0.8, AST 42, ALT 43, alkaline phosphatase 116, total creatinine kinase 80, CK-MB 3. TSH 4.6, free T4 1.2. SARS-CoV-2 PCR negative. IMAGING DATA: CT of abdomen and pelvis, preliminary report, no acute findings. CT lumbar spine, severe L1, L2, L3 compression fracture deformities, moderate L4-L5 compression fracture deformities, these are indeterminate in acuity, consider correlation with MRI. Moderate T12-L1 central canal stenosis. Chest x-ray, no acute findings. ASSESSMENT AND PLAN: This is a 76-year-old female who presents with hypotension. 1. Hypotension: Possible dehydration. We will check orthostatics. The patient says she is not eating much at home and lost lot of weight since last discharge and she is strict with salt, she is only taking less than 1.[address] her on gentle fluids. Monitor blood pressure. Hold home losartan, spironolactone, torsemide. Monitor in the tele. Consult cardiology in the a.m. for adjustment of the medication. 2. History of chronic systolic and diastolic congestive heart failure: Last echo done in December 2020. EF of 35% to 40%, [id number] tricuspid regurgitation, severe pulmonary hypertension, cor pulmonale, right ventricle severely dilated. Holding the diuretics as above for hypotension. Holding the losartan also. The patient is supposed to be on metoprolol succinate, seems to be not taking it. Repeat echo as per Cardiology. Monitor in tele, monitor for volume overload. Await cardiology input. 3. History of chronic obstructive pulmonary disease, history of severe pulmonary hypertension,Cor pulmonale chronic respiratory failure on 4-5 liters oxygen at rest and 6 liters with ambulation. Continue the same. 4. History of unspecified atrial fibrillation: Not on Toprol-XL currently, on Eliquis. 5. Complaints of low back pain: Imaging studies preliminary report showed compression fracture of indeterminate acuity. Follow the final reports. Pain control. PT, OT. If needed, consult orthopedics. 6. Acute kidney injury on chronic kidney disease stage III: Baseline creatinine 1, currently with creatinine of 1.37. Holding losartan and diuretics. Getting fluids. Monitor the labs. 7. History of chronic obstructive pulmonary disease and history of lung disease: Continue home inhalers. 8. Lower extremity wounds: Seems to be healing well. Follows with wound care. 9. History of ambulatory dysfunction: PT, OT when stable. 10. The patient is a Restorationism. 11. Deep venous thrombosis prophylaxis: On Eliquis. DISPOSITION: Closely monitor in tele floor. Level 1 full code only if there is chance of recovery. PT, OT prior to discharge. Social service to help with discharge planning. Job ID: [id number] [facility]
--- NOTE | 2021-03-16 06:45 | XRay Report ---
XR chest 1V portable HISTORY: 76 years-old Female hypotesnion acute hypertension COMPARISON: Chest CT and chest radiograph 01/05/2021 TECHNIQUE: Portable AP view of the chest FINDINGS: Cardiac silhouette is enlarged. Pulmonary artery hypertension with chronic interstitial coarsening. C alcified plaque of the thoracic aorta. Emphysema. No pneumothorax, pleural effusion, lobar airspace c onsolidation or overt pulmonary edema. Degenerative changes of the shoulders and spine. IMPRESSION: 1. No acute process. 2. Emphysema with chronic interstitial coarsening. 3. Cardiomegaly with findings of pulmonary artery hypertension. ACT 112: Negative or not required by law. The above report was generated using voice recognition software. It may contain grammatical, syntax o r spelling errors. Electronically signed by: Abdifatah Rogers M.D. 03/16/2021 6:44 AM
--- NOTE | 2021-03-16 07:52 | CT Scan Report ---
CT lumbar spine wo con HISTORY: 76 years-old Female Pt c/o Rt sided flank pain acute low back and right-sided flank pain COMPARISON: CT abdomen and pelvis of same day, chest CT 01/05/2021, lumbar spine radiographs 12/10/2018 TECHNIQUE: Multiple axial CT images of the lumbar spine were obtained without the use of IV contrast. A dose lowering technique was used consistent with the principals of SANKET. FINDINGS: Cholelithiasis noted on the tool room lathe operator localizer images. Bibasilar densities suggestive of atelectasis/fib rosis. Severe calcified plaque the abdominal aorta and branch vessels. Demineralized appearance of the bones. Vacuum disc phenomenon is noted at several levels. Mild to mod erate spondylitic spurring with posterior annular disc bulging noted at several levels. There is 4 mm anterolisthesis L5 on S1 with chronic bilateral pars defects. Unchanged appearance of the chronic T1 2, L1, L2, L4 and L5 compression deformities. Compression deformity at L3 has progressed from the 11/27 exam and is age-indeterminate. No paravertebral edema or retropulsion. The imaged sacrum and i liac bones appear intact. Multilevel central canal or neural foraminal narrowing. IMPRESSION: 1. Moderate L3 compression deformity has progressed from 12/10/2018, age-indeterminate without retropu lsion or paravertebral edema. Correlate with point tenderness. 2. Additional chronic thoracolumbar compression deformities as above. 3. Demineralized appearance of the bones. 4. Chronic bilateral L5 pars defects with grade 1 anterolisthesis. 5. Cholelithiasis. ACT 112: Negative or not required by law. The above report was generated using voice recognition software. It may contain grammatical, syntax o r spelling errors. Electronically signed by: Abdifatah Rogers M.D. 03/16/2021 7:51 AM
[2021-03-16] MEDS ORDERED: ALBUTEROL HFA 8 GM INHALER INH PRN (08:41)
[2021-03-16] MEDS ORDERED: ONDANSETRON INJ 2 MG/ML 2 ML VIAL IV PRN (08:41)
[2021-03-16] MEDS ORDERED: NITROGLYCERIN SL 0.4 MG/TAB TAB SL PRN (08:41)
[2021-03-16] MEDS ORDERED: POLYETHYLENE (MIRALAX) 17 GM PACK PO PRN (08:41)
[2021-03-16] MEDS ORDERED: SODIUM CHLORIDE 0.9% 1000ML 1,000 ML IV SCH (08:41)
[2021-03-16] MEDS ORDERED: ACETAMINOPHEN 325 MG TAB PO PRN (08:41)
[2021-03-16] MEDS ORDERED: NON-FORMULARY MEDICATION (Potassium Gluconate 595 mg (99 mg) tablet) PO SCH (09:00)
[2021-03-16 09:15] LABS: Basophils # (auto) 0.05 K/uL (0-0.2); Basophils % (auto) 0.8 %; Eosinophils # (auto) 0.18 K/uL (0-0.5); Eosinophils % (auto) 2.7 %; Hematocrit (blood only) 44.5 % (37-47); Hemoglobin 15.9 g/dL (12.0-16.0); Immature Granulocytes # (auto) 0.02 K/uL (0.00-0.02); Immature Granulocytes % (auto) 0.3 %; Lymphocytes # (auto) 2.17 K/uL (1.2-3.4); Lymphocytes % (auto) 32.6 %; Mean Corpuscular Hemoglobin 31.6 pg (25-34); Mean Corpuscular Hgb Conc 35.7 g/dL (32-36); Mean Corpuscular Volume 88.5 fL (80-100); Mean Platelet Volume 12.6 fL (7.4-10.4); Monocytes # (auto) 0.89 K/uL (0.11-0.59); Monocytes % (auto) 13.4 %; Neutrophils # (auto) 3.34 K/uL (1.4-6.5); Neutrophils % (auto) 50.2 %; Platelet Count 150 K/uL (130-400); RDW Standard Deviation 45.6 fL (36.4-46.3); Red Blood Count 5.03 M/uL (4.2-5.4); White Blood Count 6.65 K/uL (4.8-10.8)
--- NOTE | 2021-03-16 09:23 | CT Scan Report ---
CT SCAN OF THE ABDOMEN AND PELVIS WITHOUT IV CONTRAST CLINICAL HISTORY: Right flank pain. COMPARISON STUDY: Abdominal ultrasound dated 01/06/2021. Chest CT scans dated 03/14/2018 and 01/05/2021 . TECHNIQUE: CT scan of the abdomen and pelvis is performed from the lung bases to the proximal femora. Images are reviewed in the axial, sagittal, and coronal planes. IV contrast was not administered for this examination. A dose lowering technique was utilized adhering to the principles of ALARA. The ex amination is degraded by motion artifact, as well as by streak artifact from the arms which could not be elevated above the abdomen. FINDINGS: Lung bases: The heart is mildly enlarged and without pericardial effusion. The coronary arteries are densely calcified. Advanced and edematous change is noted at the lung bases. There is bibasilar scarr ing/atelectasis. There is no airspace consolidation typical for pneumonia or pleural effusion. A 12 m m lobular opacity at the right lung base seen on image #26 has been present dating back to 2018 and i s of low suspicion. Liver: The unenhanced liver is normal in size, contour, and attenuation. There is no intrahepatic marlena iary ductal dilatation. Gallbladder: There are large calcified gallstones with no CT evidence of acute cholecystitis. Spleen: Normal in size and attenuation. Pancreas: The unenhanced pancreas is atrophic and grossly unremarkable. This is not well assessed. Adrenal glands: Unremarkable. Kidneys: The unenhanced kidneys demonstrate cortical atrophy and are without hydronephrosis. There ar e no renal calculi identified. There is no evidence of contour deforming renal mass lesion. Abdominal vasculature: The abdominal aorta is normal in course and caliber noting advanced atheroscle rotic calcification. Bowel: There is moderate colonic fecal retention. No bowel obstruction is seen. There is mild to mode rate colonic diverticulosis without CT evidence of acute diverticulitis. The appendix is normal as v isualized. Peritoneum: There is no intraperitoneal free air or abdominal ascites. Lymphadenopathy: None. Pelvic viscera: The bladder is distended but otherwise normal in appearance. The uterus and adnexa ar e normal as visualized. Skeletal structures: The skeletal structures are osteopenic. There are compression deformities at all levels from T12 to L5. There are bilateral pars defects at L5. Lumbosacral spondylosis is noted. No lytic or blastic lesions are seen. There are healed right anterior rib fractures. IMPRESSION: 1. Significant streak and motion compromised examination. 2. There are no acute infectious or inflammatory findings identified in the abdomen or pelvis. 3. Moderate constipation. 4. Cardiomegaly and emphysema. 5. There are numerous chronic appearing thoracolumbar compression deformities. See report of lumbar s jose CT performed the same day for detailed findings. 6. Cholelithiasis. 7. Additional findings as above. ACT 112: Negative or not required by law. Electronically signed by: Bogdan Graham M.D. 03/16/2021 9:22 AM
[2021-03-16 09:39] LABS: BUN Creatinine Ratio 35.8 (10-20); Creatinine Clr Calc Pharmacy 36.1 ml/min; Est GFR (African American) 53.5 ml/min; Est GFR (Non-African American) 46.2 ml/min; Magnesium 2.1 mg/dl (1.8-2.4); Potassium 4.2 mmol/L (3.5-5.1)
[2021-03-16] MEDS: ADVANCED PROBIOTIC 1250 MG CAPSULE PO SCH (10:26)
[2021-03-16] MEDS: MULTIVITAMIN TAB PO SCH (10:26)
[2021-03-16] MEDS: FLUTICASONE/VILANTEROL 100/25MCG 14 PUFFS/INHALER INH SCH (10:26)
[2021-03-16] MEDS: CHOLECALCIFEROL 1,000 UNITS 25 MCG TAB PO SCH (10:26)
[2021-03-16] MEDS: APIXABAN 5 MG TABLET PO SCH ×2 (10:26→20:00)
[2021-03-16] MEDS: UMECLIDINIUM BROMIDE 62.5MCG/BLISTER 7 PUFFS/INHALER INH SCH (10:27)
[2021-03-16] MEDS: VITAMIN B COMPLEX TAB PO SCH (10:27)
[2021-03-16] MEDS: ALBUTEROL 0.083% NEBU SOLN 3 ML VIAL NEB SCH ×4 (10:48→19:00)
--- NOTE | 2021-03-16 10:58 | Cardiology Consultation ---
Date of Consultation March 16, 2021 Assessment & Plan (1) Atrial flutter, paroxysmal: (2) COPD (chronic obstructive pulmonary disease): (3) Chronic respiratory failure with hypoxia, on home O2 therapy: (4) Chronic systolic dysfunction of right ventricle: (5) Pulmonary hypertension: This patient has severe right heart failure. Consequently, the treatment is a delicate balance between utilizing diuretics to reduce right-sided edema while still maintaining adequate preload for the heart to maintain blood pressure. It sounds as though the patient or her daughters did not consider holding her diuretics for couple days and should be educated. I am going to discontinue the patient's IV fluids as her blood pressure has now stabilized. At some point her diuretics will have to be restarted and instruction should be given on weighing the patient daily. History of Present Illness Attending Physician: José Miguel Marley MD History of Present Illness This is a 76-year-old female who I saw in January at our [facility]. She has a history of severe COPD with pulmonary hypertension and chronic right heart failure. Her symptoms are more related to right heart failure than left even though she has a slightly reduced left ventricular ejection fraction of 45%. She is treated with guideline directed medication except for a beta-eze due to her underlying lung disease. In the recent past she has been treated aggressively with diuretics because of lower extremity edema. According to the patient her daughters have kept her on a strict low-sodium diet and admits she has not been drinking enough fluids. She presented to her PCP with hypotension and was referred for admission. She was given IV fluids with improvement in her blood pressure. She has no ongoing complaints. She denies shortness of breath or orthopnea. No dizziness or lightheadedness. Past medical history: 1. Severe COPD and emphysema with pulmonary hypertension 2. Chronic oxygen 3. Cor pulmonale 4. Last estimated left ventricular ejection fraction 45% 5. History of atrial flutter 5. 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 Allergies Allergy/AdvReac Type Severity Reaction Status Date / Time No Known Allergies Allergy Verified 03/15/21 22:42 Home Medications Medication Instructions Recorded Confirmed Type albuterol sulfate 90 mcg/actuation 2 puff INHALATION Q4H PRN 10/06/18 03/15/21 History aerosol inhaler (Ventolin HFA) acetaminophen 500 mg tablet 1,000 mg PO Q8H PRN #60 tab 12/11/18 03/15/21 Rx aspirin 81 mg tablet,delayed 81 mg PO HS 09/23/20 03/15/21 History release (Adult Aspirin Regimen) cholecalciferol (vitamin D3) 125 125 mcg PO DAILY 09/23/20 03/15/21 History mcg (5,000 unit) capsule potassium gluconate 595 mg (99 mg) 595 mg PO DAILY 09/23/20 03/15/21 History tablet albuterol sulfate 2.5 mg CONTINUOUS NEBULIZATION QID 01/05/21 03/15/21 History L.acidop,casei,lactis,rham-B.lact,brittany 2 cap PO DAILY #60 cap 01/14/21 03/15/21 Rx 625 mg (10 billion cell) capsule (Advanced Probiotic) apixaban 5 mg tablet (Eliquis) 5 mg PO BID #60 tab 01/14/21 03/15/21 Rx losartan 25 mg tablet 25 mg PO QAM #30 tab 01/14/21 03/15/21 Rx spironolactone 25 mg tablet 25 mg PO QAM #30 tab 01/14/21 03/15/21 Rx umeclidinium 62.5 mcg/actuation 1 inh INHALATION DAILY #30 ea 01/14/21 03/15/21 Rx blister powder for inhalation (Incruse Ellipta) coenzyme Q10 200 mg capsule 200 mg PO DAILY 02/16/21 03/15/21 History (Q-Sorb Co Q-10) multivitamin (One-A-Day Essential) 1 tab PO DAILY 02/16/21 03/15/21 History omega-3 fatty acids 1,000 mg 500 mg PO DAILY cap 02/16/21 03/15/21 History capsule (Fish Oil Concentrate) alpha lipoic acid 200 mg tablet 200 mg PO UD 03/15/21 03/15/21 History fluticasone 250 mcg-salmeterol 50 1 inh INHALATION BID 03/15/21 03/15/21 History mcg/dose blistr powdr for inhalation (Wixela Inhub) torsemide 10 mg tablet 20 mg PO QAM 03/15/21 03/15/21 History vitamin B complex-folic acid 0.4 1 tab PO DAILY 03/15/21 03/15/21 History mg tablet (Balance B-50 (with folic acid)) Patient History Medical History Anxiety Chronic bronchitis Chronic respiratory failure with hypoxia, on home O2 therapy Chronic systolic dysfunction of right ventricle COPD (chronic obstructive pulmonary disease) Diastolic CHF, chronic HTN (hypertension) Lung mass Patient is [employer] Pulmonary nodule, right "last CT in 2010 revealed R lung nodule, recommended FNA or PET, patient refused further work up" Sciatica Venous stasis dermatitis of left lower extremity Surgical History History of colonoscopy History of D&C History of tubal ligation Family History Other Family history non-contributory Social History Smoking Status: Never smoker Second Hand Exposure: No; Hx Alcohol Use: No Hx Substance Use: No Preferred Language: Marshallese Communication Ability: Effective 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 marital status: Current Living Situation: Family Current Living Situation Comment: Living with son. Other Information That Helps Us Care for You: No Feels Safe at Home: Yes Safety Concerns: Feels Safe At This Time Assistive Devices: Glasses and Oxygen - Continuous Review of Systems Review of Systems: Review of Systems: See HPI for pertinent positives. All other 10 point review of systems are negative. Physical Exam Physical Exam: General: no acute distress and stated age Head: normocephalic, no masses, lesions, tenderness or abnormalities Eyes: conjunctiva are pink and non-injected, sclera clear Neck: supple, no adenopathy, no bruits, normal jugular venous pulse, no hepatojugular reflux Chest: normal shape and normal respiratory effort Lungs: clear to auscultation and percussion Cardiac Exam: - regular rate & rhythm, holosystolic murmur at the apex of the heart varying with respiration.- normal S1, normal S2 Pulses: 2(+) throughout Abdomen: abdomen soft, non-tender, no abnormal masses and no hepatosplenomegaly Musculoskeletal: no gait disturbance, no joint inflammation, no deforming arthritis Extremities: no edema and no cyanosis Neuro: grossly normal exam Results & Data ([facility]) Vital Signs (Past 12 Hours) Vital Signs Temp Pulse Pulse Resp BP BP Pulse Ox 03/16/21 10:48 88 20 95 03/16/21 08:43 36.4 C L 76 20 115/79 95 03/16/21 07:00 73 15 95/59 L 95 03/16/21 06:31 80 19 90/58 L 96 03/16/21 06:06 36.5 C 81 22 91/54 L 98 03/16/21 06:00 81 19 99/71 L 94 03/16/21 05:30 78 14 91/54 L 95 03/16/21 05:00 72 14 97/62 L 98 03/16/21 04:30 83 17 95/57 L 93 03/16/21 04:00 77 13 80/55 L 96 03/16/21 03:30 76 90/59 L 96 03/16/21 03:00 84 90/63 L 92 03/16/21 02:30 77 98/59 L 96 03/16/21 02:00 81 15 95/56 L 94 03/16/21 01:30 87 14 93 03/16/21 01:05 88 L 03/16/21 01:00 86 14 91 03/16/21 00:30 94 H 23 97/63 L 94 03/16/21 00:03 92 H 18 93 03/15/21 23:40 97 03/15/21 23:30 96 H 20 100/64 94 03/15/21 23:00 91 H 21 102/62 93 Laboratory Results Laboratory Results - last 24 hr 03/15/21 03/15/21 03/15/21 21:50 21:50 21:50 WBC 7.93 RBC 5.26 Hgb 16.6 H Hct 46.4 MCV 88.2 MCH 31.6 MCHC 35.8 RDW Std Deviation 45.0 RDW Coeff of Giuliana 13.8 Plt Count 155 MPV 12.0 H Immature Gran % (Auto) 0.4 Neut % (Auto) 56.7 Lymph % (Auto) 28.1 [place]oul[place] % (Auto) 12.9 Eos % (Auto) 1.5 Baso % (Auto) 0.4 Neut # (Auto) 4.50 Lymph # (Auto) 2.23 [place] # (Auto) 1.02 H Eos # (Auto) 0.12 Baso # (Auto) 0.03 Immature Gran # (Auto) 0.03 H PT 10.9 INR 1.1 APTT 30.9 PTT Ratio 1.2 Sodium 129 L Potassium 4.3 Chloride 96 L Carbon Dioxide 27 Anion Gap 6.0 BUN 47 H Creatinine 1.37 H Est Cr Clr Drug Dosing 27.6 Est GFR ( Amer) 43.3 Est GFR (Non-Af Amer) 37.4 BUN/Creatinine Ratio 34.4 H Glucose 99 Calcium 9.6 Magnesium Total Bilirubin 0.8 AST 42 H ALT 43 Alkaline Phosphatase 116 Total Creatine Kinase 80 CK-MB (CK-2) 3.0 CK/CKMB % Calc 3.8 H Total Protein 7.6 Albumin 3.4 Globulin 4.2 H Albumin/Globulin Ratio 0.8 L TSH 4.660 H Free T4 1.26 COVID-19 Eval Order SARS-CoV-2 (PCR) 03/16/21 03/16/21 03/16/21 01:12 01:12 08:54 WBC 6.65 RBC 5.03 Hgb 15.9 Hct 44.5 MCV 88.5 MCH 31.6 MCHC 35.7 RDW Std Deviation 45.6 RDW Coeff of Giuliana 14.0 Plt Count 150 MPV 12.6 H Immature Gran % (Auto) 0.3 Neut % (Auto) 50.2 Lymph % (Auto) 32.6 [place] % (Auto) 13.4 Eos % (Auto) 2.7 Baso % (Auto) 0.8 Neut # (Auto) 3.34 Lymph # (Auto) 2.17 [place] # (Auto) 0.89 H Eos # (Auto) 0.18 Baso # (Auto) 0.05 Immature Gran # (Auto) 0.02 PT INR APTT PTT Ratio Sodium Potassium Chloride Carbon Dioxide Anion Gap BUN Creatinine Est Cr Clr Drug Dosing Est GFR ( Amer) Est GFR (Non-Af Amer) BUN/Creatinine Ratio Glucose Calcium Magnesium Total Bilirubin AST ALT Alkaline Phosphatase Total Creatine Kinase CK-MB (CK-2) CK/CKMB % Calc Total Protein Albumin Globulin Albumin/Globulin Ratio TSH Free T4 COVID-19 Eval Order Covid19 at [facility] SARS-CoV-2 (PCR) NEGATIVE 03/16/21 08:54 WBC RBC Hgb Hct MCV MCH MCHC RDW Std Deviation RDW Coeff of Giuliana Plt Count MPV Immature Gran % (Auto) Neut % (Auto) Lymph % (Auto) [place]oul[place] % (Auto) Eos % (Auto) Baso % (Auto) Neut # (Auto) Lymph # (Auto) [place]oul[place] # (Auto) Eos # (Auto) Baso # (Auto) Immature Gran # (Auto) PT INR APTT PTT Ratio Sodium 131 L Potassium 4.2 Chloride 99 Carbon Dioxide 27 Anion Gap 5.0 BUN 41 H Creatinine 1.15 Est Cr Clr Drug Dosing 36.1 Est GFR ( Amer) 53.5 Est GFR (Non-Af Amer) 46.2 BUN/Creatinine Ratio 35.8 H Glucose 90 Calcium 9.0 Magnesium 2.1 Total Bilirubin AST ALT Alkaline Phosphatase Total Creatine Kinase CK-MB (CK-2) CK/CKMB % Calc Total Protein Albumin Globulin Albumin/Globulin Ratio TSH Free T4 COVID-19 Eval Order SARS-CoV-2 (PCR) Medications Administered Current Inpatient Medications Acetaminophen (Acetaminophen 325 Mg Tab) 650 mg PO Q4H PRN PRN Reason: Pain or Fever Stop: 04/15/21 08:40 Albuterol (Albuterol Hfa 8 Gm Inhaler) 2 puffs INH Q4H PRN PRN Reason: Shortness Of Breath Stop: 04/15/21 08:40 Albuterol (Albuterol 0.083% Nebu Soln 3 Ml Vial) 2.5 mg NEB QIDR ARNOLDO Stop: 04/15/21 09:14 Last Admin: 03/16/21 12:54 Dose: Not Given Documented by: Apixaban (Apixaban 5 Mg Tablet) 5 mg PO BID ARNOLDO Stop: 04/15/21 09:29 Last Admin: 03/16/21 10:26 Dose: 5 mg Documented by: Aspirin (Aspirin 81 Mg Ectab) 81 mg PO HS ARNOLDO Stop: 04/15/21 20:59 Fluticasone/Vilanterol (Fluticasone/Vilanterol 100/25mcg 14 Puffs/Inhaler) 1 puffs INH DAILY ARNOLDO; Protocol Stop: 04/15/21 09:29 Last Admin: 03/16/21 10:26 Dose: 1 puffs Documented by: Lactobacillus Acidoph/Casei/Rhamnos (Advanced Probiotic 1250 Mg Capsule) 2 cap PO DAILY ARNOLDO Stop: 04/15/21 09:29 Last Admin: 03/16/21 10:26 Dose: 2 cap Documented by: Multivitamins (Multivitamin Tab) 1 tab PO DAILY ARNOLDO Stop: 04/15/21 09:29 Last Admin: 03/16/21 10:26 Dose: 1 tab Documented by: Nitroglycerin (Nitroglycerin Sl 0.4 Mg/Tab Tab) 0.4 mg SL UD PRN PRN Reason: Chest Pain Stop: 04/15/21 08:40 Ondansetron HCl (Ondansetron Inj 2 Mg/Ml 2 Ml Vial) 4 mg IV Q6H PRN PRN Reason: Nausea Stop: 04/15/21 08:40 Oxycodone HCl (Oxycodone Hcl Ir 5 Mg Tab (Immediate Release)) 2.5 mg PO Q6H PRN PRN Reason: Pain Stop: 03/30/21 02:32 Polyethylene Glycol (Polyethylene (Miralax) 17 Gm Pack) 17 gm PO DAILY PRN PRN Reason: Constipation Stop: 04/15/21 08:40 Umeclidinium Barre (Umeclidinium Barre 62.5mcg/Blister 7 Puffs/Inhaler) 1 puffs INH DAILY ARNOLDO Stop: 04/15/21 09:29 Last Admin: 03/16/21 10:27 Dose: 1 puffs Documented by: Vitamin B Complex (Vitamin B Complex Tab) 1 tab PO DAILY ARNOLDO Stop: 04/15/21 09:29 Last Admin: 03/16/21 10:27 Dose: 1 tab Documented by: Vitamin D (Cholecalciferol 1,000 Units 25 Mcg Tab) 5,000 units PO DAILY ARNOLDO Stop: 04/15/21 09:29 Last Admin: 03/16/21 10:26 Dose: 5,000 units Documented by:
--- NOTE | 2021-03-16 15:02 | Hospitalist Progress Note ---
Date of Service March 16, 2021 Delayed entry Date of service noted below Assessment & Plan (1) Hypotension: Plan: ASSESSMENT AND PLAN: This is a 76-year-old female who presents with hypotension. 1. Hypotension: Possible dehydration, in the setting of torsemide and Aldactone use -- hold home losartan, spironolactone, torsemide --Gentle IV fluids provided, discontinued now --Patient Biller consulted Appreciate the recommendations 2. History of chronic systolic and diastolic congestive heart failure: Last echo done in December 2020. EF of 35% to 40%, [id number] tricuspid regurgitation, severe pulmonary hypertension, cor pulmonale, right ventricle severely dilated. -- --Repeat echo ordered --Losartan held Apparently patient not taking metoprolol 3. History of chronic obstructive pulmonary disease, history of severe pulmonary hypertension,Cor pulmonale chronic respiratory failure on 4-5 liters oxygen at rest and 6 liters with ambulation. --Stable 4. History of unspecified atrial fibrillation: Not on Toprol-XL currently, on Eliquis. Follow the final reports. Pain control. PT, OT. If needed, consult orthopedics. --CT lumbar spine: 1. Moderate L3 compression deformity has progressed from 12/10/2018, age- indeterminate without retropulsion or paravertebral edema. Correlate with point tenderness. 2. Additional chronic thoracolumbar compression deformities as above. 3. Demineralized appearance of the bones. 4. Chronic bilateral L5 pars defects with grade 1 anterolisthesis. 5. Cholelithiasis. --Reports mild back pain, declines additional medication at this time Monitor 6. Acute kidney injury on chronic kidney disease stage III: -- Baseline creatinine 1, currently with creatinine of 1.37. Holding losartan and diuretics. IV fluids given --Monitor renal function 7. History of chronic obstructive pulmonary disease and history of lung disease: --Stable continue home inhalers. 8. Lower extremity wounds --Follows with wound care 9. History of ambulatory dysfunction: PT, OT when stable. 10. The patient is a Gnosticist. 11. Deep venous thrombosis prophylaxis: On Eliquis. plan of care discussed with patient in detail and at length all questions answered She is understanding, agreeable, comfortable with the plan of care Admission and Anticipated Discharge Date Admission Date: March 16, 2021 Subjective Follow-up for hypotension, etc. Seen sitting up in bed, comfortable, not in distress In good spirits States she feels improved compared to admission No dizziness, chest pain, palpitations No abdominal pain, nausea vomiting No other symptoms next Review of Systems Review of Systems: all noted and negative except for above Physical Exam Physical Exam: General- oriented x 3, not in distress, speaks in sentences with no effort or accessory muscle use Head- atraumatic Eyes- PERRL, EOMI, anicteric ENT- oropharynx clear Neck- supple, no JVD, no adenopathy, no thyromegaly; carotids +2/2, no bruits appreciated Lungs- clear to auscultation bilaterally, no rales/wheezes Heart- normal rate, regular rhythm; no murmur, no gallop, no rub appreciated Abdomen- normal bowel sounds, nondistended, soft, nontender, no masses or hepatosplenomegaly Extremities- no pretibial edema, no calf tenderness; peripheral pulses intact Right lower leg: Dressing in place, no bleeding or discharge No erythema/warmth/tenderness Neuro- alert, oriented x 3; CN 2-12 grossly intact; motor 5/5 bilaterally;sensation 100% on all extremities; no other gross focal neurologic deficits Skin- warm & dry Results & Data Results & Data ([facility]) Vital Signs (Past 12 Hours) Vital Signs Temp Pulse Pulse Resp BP BP Pulse Ox 03/16/21 12:24 36.8 C 92 H 20 95/61 L 92 03/16/21 10:48 88 20 95 03/16/21 08:43 36.4 C L 76 20 115/79 95 03/16/21 08:41 85 03/16/21 07:00 73 15 95/59 L 95 03/16/21 06:31 80 19 90/58 L 96 03/16/21 06:06 36.5 C 81 22 91/54 L 98 03/16/21 06:00 81 19 99/71 L 94 03/16/21 05:30 78 14 91/54 L 95 03/16/21 05:00 72 14 97/62 L 98 03/16/21 04:30 83 17 95/57 L 93 03/16/21 04:00 77 13 80/55 L 96 03/16/21 03:30 76 90/59 L 96 all noted and reviewed including below
--- NOTE | 2021-03-16 16:59 | Electrocardiogram Report ---
Test Reason : Blood Pressure : / mmHG Vent. Rate : 093 BPM Atrial Rate : 093 BPM P-R Int : 192 ms QRS Dur : 114 ms QT Int : 382 ms P-R-T Axes : 076 111 -03 degrees QTc Int : 474 ms Normal sinus rhythm Biatrial enlargement Right bundle branch block Septal infarct (cited on or before 05-JAN-2021) T wave abnormality, consider inferolateral ischemia Abnormal ECG When compared with ECG of 08-JAN-2021 11:20, Normal sinus rhythm now present Confirmed by Jordan Khanna ([id number]) on 03/16/2021 4:59:10 PM Referred By: REFERRED SELF Confirmed By:Jordan Khanna
[2021-03-16] MEDS: ASPIRIN 81 MG ECTAB PO SCH (20:00)
[2021-03-16 21:14] LABS: Appearance Urine Clear (Clear); Bacteria Urine Automated Negative (Negative); Bilirubin Urine Negative (Negative); Blood Urine Negative (Negative); Cast Urine Automated 0 /lpf (0-5); Color Urine Yellow; Glucose Urine UA Negative (Negative); Ketones Urine Negative (Negative); Leukocyte Esterase Urine Trace (Negative); Nitrite Urine Negative (Negative); Protein Urine Negative (Negative); RBC Urine Automated 0-4 /hpf (0-4); Specific Gravity Urine 1.012 (1.000-1.030); Urobilinogen Urine Negative (Negative)
[2021-03-17] MEDS: ALBUTEROL 0.083% NEBU SOLN 3 ML VIAL NEB SCH ×2 (07:12→10:58)
[2021-03-17] MEDS: CHOLECALCIFEROL 1,000 UNITS 25 MCG TAB PO SCH (08:27)
[2021-03-17] MEDS: UMECLIDINIUM BROMIDE 62.5MCG/BLISTER 7 PUFFS/INHALER INH SCH ×2 (08:27→08:36)
[2021-03-17] MEDS: FLUTICASONE/VILANTEROL 100/25MCG 14 PUFFS/INHALER INH SCH ×2 (08:27→08:35)
[2021-03-17] MEDS: APIXABAN 5 MG TABLET PO SCH ×2 (08:28→20:24)
[2021-03-17] MEDS: VITAMIN B COMPLEX TAB PO SCH (08:28)
[2021-03-17] MEDS: ADVANCED PROBIOTIC 1250 MG CAPSULE PO SCH (08:28)
[2021-03-17] MEDS: MULTIVITAMIN TAB PO SCH (08:28)
--- NOTE | 2021-03-17 10:03 | Cardiology Progress Note ---
Date of Service March 17, 2021 Assessment & Plan (1) Atrial flutter, paroxysmal: (2) COPD (chronic obstructive pulmonary disease): (3) Chronic respiratory failure with hypoxia, on home O2 therapy: (4) Chronic systolic dysfunction of right ventricle: (5) Pulmonary hypertension: Plan: The patient is clinically stable. At some point we will have to add back her medications including her diuretics but at present she still is a little bit hypotensive. I would continue to monitor her in the hospital. Admission and Anticipated Discharge Date Admission Date: March 16, 2021 Subjective The patient is in good spirits this morning. She has no complaints. Review of Systems Review of Systems: Review of Systems: See HPI for pertinent positives. All other 10 point review of systems are negative. Physical Exam Physical Exam: General: no acute distress and stated age Head: normocephalic, no masses, lesions, tenderness or abnormalities Eyes: conjunctiva are pink and non-injected, sclera clear Neck: supple, no adenopathy, no bruits, normal jugular venous pulse, no hepatojugular reflux Chest: normal shape and normal respiratory effort Lungs: clear to auscultation and percussion Cardiac Exam: - regular rate & rhythm, no murmurs gallops or rubs - normal S1, normal S2 Pulses: 2(+) throughout Abdomen: abdomen soft, non-tender, no abnormal masses and no hepatosplenomegaly Musculoskeletal: no gait disturbance, no joint inflammation, no deforming arthritis Extremities: no edema and no cyanosis Neuro: grossly normal exam Results & Data ([facility]) Vital Signs (Past 12 Hours) Vital Signs Temp Pulse Pulse Resp BP Pulse Ox 03/17/21 08:35 36.4 C L 19 90 03/17/21 07:49 83 03/17/21 07:15 88 20 91 03/17/21 05:00 36.4 C L 78 18 104/68 92 03/16/21 22:05 36.7 C 94 H 19 110/73 90 Laboratory Results Laboratory Results - last 24 hr 03/16/21 20:25 Urine Color Yellow Urine Appearance Clear Urine pH 6.0 Ur Specific [place] 1.012 Urine Protein Negative Urine Glucose (UA) Negative Urine Ketones Negative Urine Blood Negative Urine Nitrite Negative Urine Bilirubin Negative Urine Urobilinogen Negative Ur Leukocyte Esterase Trace H Urine WBC (Auto) 1-5 Urine RBC (Auto) 0-4 U Hyaline Cast (Auto) 0 U Epithel Cells (Auto) 5-10 H Urine Bacteria (Auto) Negative Medications Administered Current Inpatient Medications Acetaminophen (Acetaminophen 325 Mg Tab) 650 mg PO Q4H PRN PRN Reason: Pain or Fever Stop: 04/15/21 08:40 Albuterol (Albuterol Hfa 8 Gm Inhaler) 2 puffs INH Q4H PRN PRN Reason: Shortness Of Breath Stop: 04/15/21 08:40 Albuterol (Albuterol 0.083% Nebu Soln 3 Ml Vial) 2.5 mg NEB QIDR ARNOLDO Stop: 04/15/21 09:14 Last Admin: 03/17/21 07:12 Dose: 2.5 mg Documented by: Apixaban (Apixaban 5 Mg Tablet) 5 mg PO BID [facility] Stop: 04/15/21 09:29 Last Admin: 03/17/21 08:28 Dose: 5 mg Documented by: Aspirin (Aspirin 81 Mg Ectab) 81 mg PO HS [facility] Stop: 04/15/21 20:59 Last Admin: 03/16/21 20:00 Dose: 81 mg Documented by: Fluticasone/Vilanterol (Fluticasone/Vilanterol 100/25mcg 14 Puffs/Inhaler) 1 puffs INH DAILY [facility]; Protocol Stop: 04/15/21 09:29 Last Admin: 03/17/21 08:35 Dose: Not Given Documented by: Lactobacillus Acidoph/Casei/Rhamnos (Advanced Probiotic 1250 Mg Capsule) 2 cap PO DAILY [facility] Stop: 04/15/21 09:29 Last Admin: 03/17/21 08:28 Dose: 2 cap Documented by: Multivitamins (Multivitamin Tab) 1 tab PO DAILY [facility] Stop: 04/15/21 09:29 Last Admin: 03/17/21 08:28 Dose: 1 tab Documented by: Nitroglycerin (Nitroglycerin Sl 0.4 Mg/Tab Tab) 0.4 mg SL UD PRN PRN Reason: Chest Pain Stop: 04/15/21 08:40 Ondansetron HCl (Ondansetron Inj 2 Mg/Ml 2 Ml Vial) 4 mg IV Q6H PRN PRN Reason: Nausea Stop: 04/15/21 08:40 Oxycodone HCl (Oxycodone Hcl Ir 5 Mg Tab (Immediate Release)) 2.5 mg PO Q6H PRN PRN Reason: Pain Stop: 03/30/21 02:32 Polyethylene Glycol (Polyethylene (Miralax) 17 Gm Pack) 17 gm PO DAILY PRN PRN Reason: Constipation Stop: 04/15/21 08:40 Umeclidinium [place] (Umeclidinium [place] 62.5mcg/Blister 7 Puffs/Inhaler) 1 puffs INH DAILY ARNOLDO Stop: 04/15/21 09:29 Last Admin: 03/17/21 08:36 Dose: Not Given Documented by: Vitamin B Complex (Vitamin B Complex Tab) 1 tab PO DAILY ARNOLDO Stop: 04/15/21 09:29 Last Admin: 03/17/21 08:28 Dose: 1 tab Documented by: Vitamin D (Cholecalciferol 1,000 Units 25 Mcg Tab) 5,000 units PO DAILY ARNOLDO Stop: 04/15/21 09:29 Last Admin: 03/17/21 08:27 Dose: 5,000 units Documented by:
--- NOTE | 2021-03-17 12:19 | Hospitalist Progress Note ---
Date of Service March 17, 2021 Assessment & Plan (1) Hypotension: Plan: ASSESSMENT AND PLAN: This is a 76-year-old female who presents with hypotension. 1. Hypotension: Possible dehydration, in the setting of torsemide and Aldactone use --Blood pressure improving Discussed with Dr. Landis, will reduce torsemide to 20 mg every other day and resume usual Aldactone 5 mg p.o. daily -- hold home losartan --Gentle IV fluids provided, discontinued now --Postal Delivery Officer consulted Appreciate the recommendations --Monitor blood pressure 2. History of chronic systolic and diastolic congestive heart failure: Last echo done in December 2020. EF of 35% to 40%, [id number] tricuspid regurgitation, severe pulmonary hypertension, cor pulmonale, right ventricle severely dilated. -- --Losartan held due to hypotension Apparently patient not taking metoprolol --Monitor 3. History of chronic obstructive pulmonary disease, history of severe pulmonary hypertension,Cor pulmonale chronic respiratory failure on 4-5 liters oxygen at rest and 6 liters with ambulation. --Stable 4. History of unspecified atrial fibrillation: Not on Toprol-XL currently, on Eliquis. Follow the final reports. Pain control. PT, OT. If needed, consult orthopedics. --CT lumbar spine: 1. Moderate L3 compression deformity has progressed from 12/10/2018, age- indeterminate without retropulsion or paravertebral edema. Correlate with point tenderness. 2. Additional chronic thoracolumbar compression deformities as above. 3. Demineralized appearance of the bones. 4. Chronic bilateral L5 pars defects with grade 1 anterolisthesis. 5. Cholelithiasis. --Reports mild back pain, declines additional medication at this time Monitor 6. Acute kidney injury on chronic kidney disease stage III: -- Baseline creatinine 1, currently with creatinine of 1.37. Holding losartan and diuretics. IV fluids given --Creatinine back to baseline 7. History of chronic obstructive pulmonary disease and history of lung disease: --Stable continue home inhalers. 8. Right lower extremity wound --Healing well --Follows with wound care 9. History of ambulatory dysfunction: PT, OT when stable. 10. The patient is a Gnosticism. 11. Deep venous thrombosis prophylaxis: On Eliquis. plan of care discussed with patient in detail and at length all questions answered She is understanding, agreeable, comfortable with the plan of care Admission and Anticipated Discharge Date Admission Date: March 16, 2021 Subjective Follow-up for hypertension, etc. Seen resting in bed, comfortable, sitting up, in good spirits States that she continues to feel improved Denies shortness of breath, chest pain, apneas, dizziness Back pain improving No leg pain, no pain over the wound site No other symptom Review of Systems Review of Systems: all noted and negative except for above Physical Exam Physical Exam: General- oriented x 3, not in distress, speaks in sentences with no effort or accessory muscle use Eyes- anicteric Neck- no JVD Lungs-clear presents bilaterally, no crackles or wheezing Heart- normal rate, regular rhythm; no murmurs Abdomen- normal bowel sounds, nondistended, soft, nontender Extremities- no pretibial edema, no calf tenderness Right anterior lower leg: Wound healing well, mild surrounding erythema but no edema, tenderness, warmth Neuro- alert, oriented x 3; no gross focal neurologic deficits Skin- warm & dry Results & Data Results & Data ([facility]) Vital Signs (Past 12 Hours) Vital Signs Temp Pulse Pulse Resp BP Pulse Ox 03/17/21 11:54 36.4 C L 87 22 107/70 92 03/17/21 10:59 80 20 97 03/17/21 08:35 36.4 C L 19 90 03/17/21 07:49 83 03/17/21 07:15 88 20 91 03/17/21 05:00 36.4 C L 78 18 104/68 92 all noted and reviewed including below
[2021-03-17] MEDS ORDERED: SPIRONOLACTONE 25 MG TAB PO SCH (12:30)
[2021-03-17] MEDS: TORSEMIDE 20 MG TAB PO SCH (13:09)
[2021-03-17] MEDS ORDERED: ALBUTEROL 0.083% NEBU SOLN 3 ML VIAL NEB PRN (13:59)
[2021-03-17] MEDS: ASPIRIN 81 MG ECTAB PO SCH (20:16)
[2021-03-18] MEDS: FLUTICASONE/VILANTEROL 100/25MCG 14 PUFFS/INHALER INH SCH (08:39)
[2021-03-18] MEDS: UMECLIDINIUM BROMIDE 62.5MCG/BLISTER 7 PUFFS/INHALER INH SCH (08:39)
[2021-03-18] MEDS: MULTIVITAMIN TAB PO SCH (08:40)
[2021-03-18] MEDS: ADVANCED PROBIOTIC 1250 MG CAPSULE PO SCH (08:41)
[2021-03-18] MEDS: VITAMIN B COMPLEX TAB PO SCH (08:41)
[2021-03-18] MEDS: CHOLECALCIFEROL 1,000 UNITS 25 MCG TAB PO SCH (08:42)
[2021-03-18] MEDS: APIXABAN 5 MG TABLET PO SCH ×2 (09:46→20:03)
[2021-03-18 10:05] LABS: BUN Creatinine Ratio 25.7 (10-20); Creatinine Clr Calc Pharmacy 40.7 ml/min; Est GFR (African American) 61.9 ml/min; Est GFR (Non-African American) 53.4 ml/min; Potassium 3.5 mmol/L (3.5-5.1)
--- NOTE | 2021-03-18 14:51 | Hospitalist Progress Note ---
Date of Service March 18, 2021 Assessment & Plan (1) Hypotension: Plan: ASSESSMENT AND PLAN: This is a 76-year-old female who presents with hypotension. 1. Hypotension: Possible dehydration, in the setting of torsemide and Aldactone use --Blood pressure improving Discussed with Dr. Landis, will reduce torsemide to 20 mg every other day and resume usual Aldactone 5 mg p.o. daily -- hold home losartan --Gentle IV fluids provided, discontinued now --D[employer]ified Crops Farmer consulted -- monitor while on above diuretic regimen BP stable so far 2. History of chronic systolic and diastolic congestive heart failure: Last echo done in December 2020. EF of 35% to 40%, [id number] tricuspid regurgitation, severe pulmonary hypertension, cor pulmonale, right ventricle severely dilated. -- --Losartan held due to hypotension Apparently patient not taking metoprolol --Monitor 3. History of chronic obstructive pulmonary disease, history of severe pulmonary hypertension,Cor pulmonale chronic respiratory failure on 4-5 liters oxygen at rest and 6 liters with ambulation. --Stable 4. History of unspecified atrial fibrillation: Not on Toprol-XL currently, on Eliquis. Follow the final reports. Pain control. PT, OT. If needed, consult orthopedics. --CT lumbar spine: 1. Moderate L3 compression deformity has progressed from 12/10/2018, age- indeterminate without retropulsion or paravertebral edema. Correlate with point tenderness. 2. Additional chronic thoracolumbar compression deformities as above. 3. Demineralized appearance of the bones. 4. Chronic bilateral L5 pars defects with grade 1 anterolisthesis. 5. Cholelithiasis. --Reports mild back pain, declines additional medication at this time Monitor 6. Acute kidney injury on chronic kidney disease stage III: -- Baseline creatinine 1, currently with creatinine of 1.37. Holding losartan IV fluids given -- Creatinine back to baseline 7. History of chronic obstructive pulmonary disease and history of lung disease: --Stable continue home inhalers. 8. Right lower extremity wound --Healing well --Follows with wound care 9. History of ambulatory dysfunction: PT, OT when stable. 10. 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 11. Deep venous thrombosis prophylaxis: On Eliquis. plan of care discussed with patient in detail and at length all questions answered She is understanding, agreeable, comfortable with the plan of care Admission and Anticipated Discharge Date Admission Date: March 16, 2021 Subjective ff up for hypotension, CHF seen resting in bed, comfortable, not in distress reports mild dyspnea- not unusual per patient, inhalers help at home on 4 L oxygen via nasal cannula no chest pain, palpitations, dyspnea Review of Systems Review of Systems: all noted and negative except for above Physical Exam Physical Exam: General- oriented x 3, not in distress, speaks in sentences with no effort or accessory muscle use Eyes- anicteric Neck- no JVD Lungs- mild rales at the bases, no wheezing good air entry bilaterally Heart- normal rate, regular rhythm; no murmurs Abdomen- normal bowel sounds, nondistended, soft, nontender Extremities- no pretibial edema, no calf tenderness Neuro- alert, oriented x 3; no gross focal neurologic deficits Skin- warm & dry Results & Data Results & Data ([facility] [place]) Vital Signs (Past 12 Hours) Vital Signs Temp Pulse Resp BP BP Pulse Ox 03/18/21 11:12 36.3 C L 80 20 131/84 92 03/18/21 07:09 36.5 C 78 18 113/70 95
[2021-03-18] MEDS: SPIRONOLACTONE 25 MG TAB PO SCH (15:40)
--- NOTE | 2021-03-18 16:10 | Cardiology Progress Note ---
Date of Service March 18, 2021 Assessment & Plan (1) Atrial flutter, paroxysmal: (2) COPD (chronic obstructive pulmonary disease): (3) Chronic respiratory failure with hypoxia, on home O2 therapy: (4) Chronic systolic dysfunction of right ventricle: (5) Pulmonary hypertension: Plan: The patient is doing well clinically. Going to restart her losartan at 25 mg daily. Otherwise she is doing well. Admission and Anticipated Discharge Date Admission Date: March 16, 2021 Subjective The patient has no new complaints today. She feels well. Review of Systems Review of Systems: Review of Systems: See HPI for pertinent positives. All other 10 point review of systems are negative. Physical Exam Physical Exam: General: no acute distress and stated age Head: normocephalic, no masses, lesions, tenderness or abnormalities Eyes: conjunctiva are pink and non-injected, sclera clear Neck: supple, no adenopathy, no bruits, normal jugular venous pulse, no hepatojugular reflux Chest: normal shape and normal respiratory effort Lungs: clear to auscultation and percussion Cardiac Exam: - regular rate & rhythm, no murmurs gallops or rubs - normal S1, n ormal S2 Pulses: 2(+) throughout Abdomen: abdomen soft, non-tender, no abnormal masses and no hepatosplenomegaly Musculoskeletal: no gait disturbance, no joint inflammation, no deforming arthritis Extremities: no edema and no cyanosis Neuro: grossly normal exam Results & Data ([facility]) Vital Signs (Past 12 Hours) Vital Signs Temp Pulse Resp BP BP Pulse Ox 03/18/21 11:12 36.3 C L 80 20 131/84 92 03/18/21 07:09 36.5 C 78 18 113/70 95 Laboratory Results Laboratory Results - last 24 hr 03/18/21 09:33 Sodium 136 Potassium 3.5 Chloride 101 Carbon Dioxide 29 Anion Gap 6.0 BUN 26 H Creatinine 1.02 Est Cr Clr Drug Dosing 40.7 Est GFR ( Amer) 61.9 Est GFR (Non-Af Amer) 53.4 BUN/Creatinine Ratio 25.7 H Glucose 102 H Calcium 9.0 Medications Administered Current Inpatient Medications Acetaminophen (Acetaminophen 325 Mg Tab) 650 mg PO Q4H PRN PRN Reason: Pain or Fever Stop: 04/15/21 08:40 Albuterol (Albuterol Hfa 8 Gm Inhaler) 2 puffs INH Q4H PRN PRN Reason: Shortness Of Breath Stop: 04/15/21 08:40 Albuterol (Albuterol 0.083% Nebu Soln 3 Ml Vial) 2.5 mg NEB Q4R PRN PRN Reason: Shortness Of Breath Or Wheezing Stop: 04/16/21 13:57 Apixaban (Apixaban 5 Mg Tablet) 5 mg PO BID [facility] Stop: 04/15/21 09:29 Last Admin: 03/18/21 09:46 Dose: 5 mg Documented by: Aspirin (Aspirin 81 Mg Ectab) 81 mg PO HS [facility] Stop: 04/15/21 20:59 Last Admin: 03/17/21 20:16 Dose: Not Given Documented by: Fluticasone/Vilanterol (Fluticasone/Vilanterol 100/25mcg 14 Puffs/Inhaler) 1 puffs INH DAILY [facility]; Protocol Stop: 04/15/21 09:29 Last Admin: 03/18/21 08:39 Dose: Not Given Documented by: Lactobacillus Acidoph/Casei/Rhamnos (Advanced Probiotic 1250 Mg Capsule) 2 cap PO DAILY [facility] Stop: 04/15/21 09:29 Last Admin: 03/18/21 08:41 Dose: 2 cap Documented by: Losartan Potassium (Losartan Potassium 25 Mg Tab) 25 mg PO QAM [facility] Stop: 04/17/21 16:14 Multivitamins (Multivitamin Tab) 1 tab PO DAILY [facility] Stop: 04/15/21 09:29 Last Admin: 03/18/21 08:40 Dose: 1 tab Documented by: Nitroglycerin (Nitroglycerin Sl 0.4 Mg/Tab Tab) 0.4 mg SL UD PRN PRN Reason: Chest Pain Stop: 04/15/21 08:40 Ondansetron HCl (Ondansetron Inj 2 Mg/Ml 2 Ml Vial) 4 mg IV Q6H PRN PRN Reason: Nausea Stop: 04/15/21 08:40 Oxycodone HCl (Oxycodone Hcl Ir 5 Mg Tab (Immediate Release)) 2.5 mg PO Q6H PRN PRN Reason: Pain Stop: 03/30/21 02:32 Polyethylene Glycol (Polyethylene (Miralax) 17 Gm Pack) 17 gm PO DAILY PRN PRN Reason: Constipation Stop: 04/15/21 08:40 Spironolactone (Spironolactone 25 Mg Tab) 25 mg PO DAILY ARNOLDO Stop: 04/17/21 14:29 Last Admin: 03/18/21 15:40 Dose: 25 mg Documented by: Torsemide (Torsemide 20 Mg Tab) 20 mg PO Q2D@0900 ARNOLDO Stop: 04/16/21 12:29 Last Admin: 03/17/21 13:09 Dose: 20 mg Documented by: Umeclidinium [place] (Umeclidinium [place] 62.5mcg/Blister 7 Puffs/Inhaler) 1 puffs INH DAILY ARNOLDO Stop: 04/15/21 09:29 Last Admin: 03/18/21 08:39 Dose: Not Given Documented by: Vitamin B Complex (Vitamin B Complex Tab) 1 tab PO DAILY ARNOLDO Stop: 04/15/21 09:29 Last Admin: 03/18/21 08:41 Dose: 1 tab Documented by: Vitamin D (Cholecalciferol 1,000 Units 25 Mcg Tab) 5,000 units PO DAILY ARNOLDO Stop: 04/15/21 09:29 Last Admin: 03/18/21 08:42 Dose: 5,000 units Documented by:
[2021-03-18] MEDS: LOSARTAN POTASSIUM 25 MG TAB PO SCH (17:27)
[2021-03-18] MEDS: ASPIRIN 81 MG ECTAB PO SCH (20:03)
[2021-03-19] MEDS: UMECLIDINIUM BROMIDE 62.5MCG/BLISTER 7 PUFFS/INHALER INH SCH (08:20)
[2021-03-19] MEDS: FLUTICASONE/VILANTEROL 100/25MCG 14 PUFFS/INHALER INH SCH (08:20)
[2021-03-19] MEDS: APIXABAN 5 MG TABLET PO SCH ×2 (08:22→20:57)
[2021-03-19] MEDS: VITAMIN B COMPLEX TAB PO SCH (08:23)
[2021-03-19] MEDS: ADVANCED PROBIOTIC 1250 MG CAPSULE PO SCH (08:23)
[2021-03-19] MEDS: LOSARTAN POTASSIUM 25 MG TAB PO SCH (08:24)
[2021-03-19] MEDS: CHOLECALCIFEROL 1,000 UNITS 25 MCG TAB PO SCH (08:24)
[2021-03-19] MEDS: SPIRONOLACTONE 25 MG TAB PO SCH (08:24)
[2021-03-19] MEDS: TORSEMIDE 20 MG TAB PO SCH (08:24)
[2021-03-19] MEDS: MULTIVITAMIN TAB PO SCH (08:24)
--- NOTE | 2021-03-19 13:10 | Hospitalist Progress Note ---
Date of Service March 19, 2021 Assessment & Plan (1) Hypotension: Plan: ASSESSMENT AND PLAN: This is a 76-year-old female who presents with hypotension. 1. Hypotension: Possible dehydration, in the setting of torsemide and Aldactone use --Blood pressure improving Discussed with Dr. Landis, will reduce torsemide to 20 mg every other day and resume usual Aldactone 5 mg p.o. daily -- hold home losartan --Gentle IV fluids provided, discontinued now --Microwave Remote Sensing Scientist consulted 03/19 BP on the lower side again hold Losartan d/c Spironolactone continue Torsemide q2d monitor 2. History of chronic systolic and diastolic congestive heart failure: Last echo done in December 2020. EF of 35% to 40%, [id number] tricuspid regurgitation, severe pulmonary hypertension, cor pulmonale, right ventricle severely dilated. -- --Losartan held due to hypotension Apparently patient not taking metoprolol --Monitor 3. History of chronic obstructive pulmonary disease, history of severe pulmonary hypertension,Cor pulmonale chronic respiratory failure on 4-5 liters oxygen at rest and 6 liters with ambulation. --Stable 4. History of unspecified atrial fibrillation: Not on Toprol-XL currently, on Eliquis. 5. L3 Compression Deformity Follow the final reports. Pain control. PT, OT. If needed, consult orthopedics. --CT lumbar spine: 1. Moderate L3 compression deformity has progressed from 12/10/2018, age- indeterminate without retropulsion or paravertebral edema. Correlate with point tenderness. 2. Additional chronic thoracolumbar compression deformities as above. 3. Demineralized appearance of the bones. 4. Chronic bilateral L5 pars defects with grade 1 anterolisthesis. 5. Cholelithiasis. --Reports mild back pain, declines additional medication at this time Monitor 6. Acute kidney injury on chronic kidney disease stage III: -- Baseline creatinine 1, currently with creatinine of 1.37. Holding losartan IV fluids given -- Creatinine back to baseline 7. History of chronic obstructive pulmonary disease and history of lung diseas e: --Stable continue home inhalers. 8. Right lower extremity wound --Healing well --Follows with wound care 9. History of ambulatory dysfunction: PT, OT when stable. 10. 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 11. Deep venous thrombosis prophylaxis: On Eliquis. plan of care discussed with patient in detail and at length all questions answered She is understanding, agreeable, comfortable with the plan of care Admission and Anticipated Discharge Date Admission Date: March 16, 2021 Subjective ff up for hypotension, CHF, etc seen resting in bed, comfortable in good spirits sitting up on 4 LNC states she feels ok overall no chest pain, dyspnea, palpitations, dizziness no cough no other symptoms Review of Systems Review of Systems: all noted and negative except for above Physical Exam Physical Exam: General- oriented x 3, not in distress, speaks in sentences with no effort or accessory muscle use Eyes- anicteric Neck- no JVD Lungs- clear breath sounds bilaterally Heart- normal rate, regular rhythm; no murmurs Abdomen- normal bowel sounds, nondistended, soft, nontender Extremities- no pretibial edema, no calf tenderness Neuro- alert, oriented x 3; no gross focal neurologic deficits Skin- warm & dry Results & Data Results & Data ([facility]) Vital Signs (Past 12 Hours) Vital Signs Temp Pulse Pulse Resp BP Pulse Ox 03/19/21 12:19 36.6 C 84 20 102/61 93 03/19/21 08:05 36.5 C 75 20 90/58 L 92 03/19/21 08:00 77 03/19/21 02:46 36.5 C 75 18 98/68 L 94 all noted and reviewed including below
--- NOTE | 2021-03-19 17:19 | Cardiology Progress Note ---
Date of Service March 19, 2021 Assessment & Plan (1) Chronic respiratory failure with hypoxia, on home O2 therapy: (2) Chronic systolic dysfunction of right ventricle: (3) Pulmonary hypertension: Plan: Torsemide held today due to systolic blood pressure of 100 mmHg. She is currently to receive torsemide 20 mg every other day as compared to daily. I am going to reduce the hold parameter to 90 mmHg. Agree with continuing holding losartan 25 mg at present. I am not certain if it would be feasible for her to cut the losartan to 12.5 mg at home. As discussed in my progress note during her previous hospital stay, cor pulmonale physiology noted. Prognosis poor. I do not think we are going to make her exertional dyspnea complaint better. Continue supplemental oxygen. Admission and Anticipated Discharge Date Admission Date: March 16, 2021 Subjective Patient seen in follow-up. No acute complaint. Physical Exam Constitutional: + cachectic Respiratory: normal respiratory effort, lungs clear to auscultation Cardiovascular: RRR, no murmur, no edema Results & Data ([facility]) Vital Signs (Past 12 Hours) Vital Signs Temp Pulse Pulse Resp BP BP Pulse Ox 03/19/21 16:02 36.5 C 79 20 100/47 L 95 03/19/21 15:44 03/19/21 12:19 36.6 C 84 20 102/61 93 03/19/21 08:05 36.5 C 75 20 90/58 L 92 03/19/21 08:00 77 Pulse Ox Pulse Ox 03/19/21 16:02 03/19/21 15:44 92 92 03/19/21 12:19 03/19/21 08:05 03/19/21 08:00
[2021-03-19] MEDS: ASPIRIN 81 MG ECTAB PO SCH (20:57)
[2021-03-20] MEDS: APIXABAN 5 MG TABLET PO SCH ×2 (09:07→09:44)
[2021-03-20] MEDS: UMECLIDINIUM BROMIDE 62.5MCG/BLISTER 7 PUFFS/INHALER INH SCH (09:08)
[2021-03-20] MEDS: FLUTICASONE/VILANTEROL 100/25MCG 14 PUFFS/INHALER INH SCH (09:08)
[2021-03-20 09:37] LABS: BUN Creatinine Ratio 23.6 (10-20); Calcium 9.4 mg/dl (8.5-10.1); Creatinine Clr Calc Pharmacy 42.1 ml/min; Est GFR (Non-African American) 62.1 ml/min; Potassium 3.5 mmol/L (3.5-5.1)
[2021-03-20] MEDS: CHOLECALCIFEROL 1,000 UNITS 25 MCG TAB PO SCH (09:43)
[2021-03-20] MEDS: NYSTATIN POWDER 15GM BTL EXT SCH ×2 (09:43→20:45)
[2021-03-20] MEDS: VITAMIN B COMPLEX TAB PO SCH (09:44)
[2021-03-20] MEDS: ADVANCED PROBIOTIC 1250 MG CAPSULE PO SCH (09:44)
[2021-03-20] MEDS: MULTIVITAMIN TAB PO SCH (09:45)
--- NOTE | 2021-03-20 13:10 | Hospitalist Progress Note ---
Date of Service March 20, 2021 Assessment & Plan (1) Hypotension: Plan: ASSESSMENT AND PLAN: This is a 76-year-old female who presents with hypotension. 1. Hypotension: Possible dehydration, in the setting of torsemide and Aldactone use --Blood pressure improving Discussed with Dr. Landis, will reduce torsemide to 20 mg every other day and resume usual Aldactone 5 mg p.o. daily -- hold home losartan --Gentle IV fluids provided, discontinued now --Echocardiograph Tech consulted 03/20 BP mostly systolic 100s hold Losartan d/c'd Spironolactone continue Torsemide q2d monitor volume status and BP 2. History of chronic systolic and diastolic congestive heart failure: Last echo done in December 2020. EF of 35% to 40%, [id number] tricuspid regurgitation, severe pulmonary hypertension, cor pulmonale, right ventricle severely dilated. -- -- Losartan held due to hypotension Apparently patient not taking metoprolol --Monitor 3. History of chronic obstructive pulmonary disease, history of severe pulmonary hypertension,Cor pulmonale chronic respiratory failure on 4-5 liters oxygen at rest and 6 liters with ambulation. --Stable 4. History of unspecified atrial fibrillation: Not on Toprol-XL currently, on Eliquis. 5. L3 Compression Deformity Follow the final reports. Pain control. PT, OT. If needed, consult orthopedics. --CT lumbar spine: 1. Moderate L3 compression deformity has progressed from 12/10/2018, age- indeterminate without retropulsion or paravertebral edema. Correlate with point tenderness. 2. Additional chronic thoracolumbar compression deformities as above. 3. Demineralized appearance of the bones. 4. Chronic bilateral L5 pars defects with grade 1 anterolisthesis. 5. Cholelithiasis. --Reports mild back pain, declines additional medication at this time Monitor 6. Acute kidney injury on chronic kidney disease stage III: -- Baseline creatinine 1, currently with creatinine of 1.37. Holding losartan IV fluids given -- Creatinine back to baseline 7. History of chronic obstructive pulmonary disease and history of lung disease: --Stable continue home inhalers. 8. Right lower extremity wound --Healing well --Follows with wound care 9. History of ambulatory dysfunction: PT, OT when stable. 10. The patient is a [employer]. 11. Deep venous thrombosis prophylaxis: On Eliquis. plan of care discussed with patient in detail and at length all questions answered She is understanding, agreeable, comfortable with the plan of care Admission and Anticipated Discharge Date Admission Date: March 16, 2021 Subjective ff up for hypotension, etc seen sitting up in bed, comfortable on 4 L NE states she feels ok overall today except dyspnea with exertion no chest pain, palpitations, dizziness no cough no other symptoms Review of Systems Review of Systems: all noted and negative except for above Physical Exam Physical Exam: General- oriented x 3, not in distress, speaks in sentences with no effort or accessory muscle use Eyes- anicteric Neck- no JVD Lungs- clear BS BL no rales no wheezes Heart- normal rate, regular rhythm; no murmurs Abdomen- normal bowel sounds, nondistended, soft, nontender Extremities- no pretibial edema, no calf tenderness Neuro- alert, oriented x 3; no gross focal neurologic deficits Skin- warm & dry Results & Data Results & Data ([facility]) Vital Signs (Past 12 Hours) Vital Signs Temp Pulse Pulse Resp BP BP Pulse Ox 03/20/21 11:34 35.7 C L 95 H 22 101/67 91 03/20/21 08:00 36.0 C L 68 76 16 101/61 95 03/20/21 03:20 36.7 C 85 18 113/80 95 all noted and reviewed including below
--- NOTE | 2021-03-20 15:19 | Emergency Department Note ---
Impression & Plan Hypotension, Venous stasis dermatitis of left lower extremity, Acute on chronic right-sided congestive heart failure, COPD (chronic obstructive pulmonary disease) ED Provider Note NAME: ABUNDIO GARCIA AGE: 76 SEX: F : 1945 ARRIVES VIA: Ambulance INFORMANT: Patient, ED PROVIDER(S): Olvin Chan MD CHIEF COMPLAINT: hypotension HPI: This 76-year-old female who presents emergency department complaining of low blood pressure. The patient was sent in by the primary care physician. The patient was at the primary care physician's office today and with this then sent into the emergency department over concerns that the blood pressure was low. The patient is also complaining of weakness. She reports weakness is made worse with exertion however rest makes it somewhat better. She has not taken anything for the weakness or the blood pressure prior to arrival. ROS: See above HPI for pertinent positives & negatives. A total of 10 systems reviewed and were otherwise negative. PAST MEDICAL HISTORY: See Below PAST SURGICAL HISTORY: See Below FAMILY HISTORY: See Below SOCIAL HISTORY: See Below HOME MEDICATIONS: See Below ALLERGIES: See Below VITALS: See Below PHYSICAL EXAMINATION: VITAL SIGNS - Vital signs and nursing notes were reviewed. GENERAL - 76-year-old female appearing stated age who is in no acute distress. SKIN - Without rashes. HEAD - NC/AT. EYES - PERRL with EOMI bilaterally. Sclera anicteric. Palpebral conjunctiva pink and moist with no injection noted. EARS - No deformities of external structures noted on gross examination bilaterally. NOSE - Midline and without cyanosis. No epistaxis or purulent drainage noted. Septum midline without deviation or septal hematoma noted. MOUTH/OROPHARYNX - Without perioral cyanosis. Buccal mucosa pink and moist and without leukoplakia. Tongue midline with equal elevation of palate bilaterally. No tonsillar hypertrophy, erythema, or exudates noted. NECK - Neck with FROM. Supple to palpation. LUNGS - Chest wall symmetric without accessory muscle use, intercostals retractions, or central cyanosis. Normal vesicular breath sounds CTA B/L. No wheezes, rales, or rhonchi appreciated. CARDIAC - RRR with S1/S2. No murmur, rubs, or gallops appreciated. ABDOMEN - Abdominal contour without pulsations or visible masses. BS normoactive all four quadrants. No tenderness, palpable masses, hepatosplen omegaly, or ascites noted. EXTREMITIES - No clubbing or peripheral cyanosis. No pretibial edema present. +3/5 radial, posterior tibial, and dorsalis pedis pulses palpated throughout. +5/5 strength noted in UE/LE bilaterally. NEUROLOGIC - Cranial nerves II through XII grossly intact. Sensory intact to light touch throughout. Patellar reflexes +2/4. PSYCH - A&Ox3 and cooperates fully with examiner. Pt is very pleasant and interacts well with examiner. MEDICAL DECISION MAKING: Patient was seen and evaluated as above in room. Review was performed of nursing notes and vital signs. I did review pertinent previous visits and patient history. After obtaining a thorough history and physical examination the above work up was performed. This is a 76-year-old female who presents emergency department complaining of hypotension. The patient is slightly dehydrated. She was given multiple portillo luses of fluid here in the emergency department. She is also hypoxic and was given breathing treatments. I did discuss the case with the hospitalist service who did agree to admit the patient. Patient is in agreement with treatment plan. An order was placed for continuous cardiac monitoring. The monitor shows a rate of 95 with Normal SInus rhythm. The patient was evaluated during a period of high volume and high acuity during the global COVID-19 pandemic, and that diagnosis was suspected/considered upon their initial presentation. Their evaluation, treatment and testing was consistent with current guidelines for patients who present with complaints or symptoms that may be related to COVID-19. Patient was seen while provider was wearing PPE. Triage Nursing notes reviewed. Prior medical records reviewed Vital Signs: reviewed and remarkable for hypotension and tachycardia and hypothermia Differential diagnosis: Infection, dehydration, metabolic abnormality, hypo/hyperglycemia, electrolyte disturbance, anemia, hypoxia, cardiac sources, intracerebral event, toxicologic, neurologic, as well as other pathologies. ER treatment provided: See below Diagnostics interpreted by me: ECG: Normal sinus rhythm right bundle branch block old septal infarct T wave inversions in the anterior leads EKG is compared to 01/08/2021 normal sinus rhythm is now present QTC is 474 ventricular rate is [address] elevation or depression Laboratory studies: As stated above and show below. Imaging studies: See below Past Med/Surg History Medical History Anxiety Chronic bronchitis Chronic respiratory failure with hypoxia, on home O2 therapy Chronic systolic dysfunction of right ventricle COPD (chronic obstructive pulmonary disease) Diastolic CHF, chronic HTN (hypertension) Lung mass Patient is [employer] Pulmonary nodule, right "last CT in 2010 revealed R lung nodule, recommended FNA or PET, patient refused further work up" Sciatica Venous stasis dermatitis of left lower extremity Surgical History History of colonoscopy History of D&C History of tubal ligation Family History Other Family history non-contributory Social History Smoking Status: Never smoker Second Hand Exposure: No; Hx Alcohol Use: No Hx Substance Use: No Preferred Language: Czech Communication Ability: Effective Microsoft Crm Developer Required: No Beliefs That Will Affect Care: Orthodoxy Orthodoxy Beliefs: Jehovas Witness. marital status: Current Living Situation: Family Current Living Situation Comment: Living with son. Other Information That Helps Us Care for You: No Feels Safe at Home: Yes Safety Concerns: Feels Safe At This Time Assistive Devices: Oxygen - Continuous and Walker Allergies Allergies Allergy/AdvReac Type Severity Reaction Status Date / Time No Known Allergies Allergy Verified 03/15/21 22:42 Home Meds Home Medications Medication Instructions Recorded Confirmed albuterol sulfate 90 mcg/actuation 2 puff INHALATION Q4H PRN 10/06/18 03/15/21 aerosol inhaler (Ventolin HFA) aspirin 81 mg tablet,delayed 81 mg PO HS 09/23/20 03/15/21 release (Adult Aspirin Regimen) cholecalciferol (vitamin D3) 125 125 mcg PO DAILY 09/23/20 03/15/21 mcg (5,000 unit) capsule potassium gluconate 595 mg (99 mg) 595 mg PO DAILY 09/23/20 03/15/21 tablet albuterol sulfate 2.5 mg CONTINUOUS NEBULIZATION QID 01/05/21 03/15/21 coenzyme Q10 200 mg capsule 200 mg PO DAILY 02/16/21 03/15/21 (Q-Sorb Co Q-10) multivitamin (One-A-Day Essential) 1 tab PO DAILY 02/16/21 03/15/21 omega-3 fatty acids 1,000 mg 500 mg PO DAILY cap 02/16/21 03/15/21 capsule (Fish Oil Concentrate) alpha lipoic acid 200 mg tablet 200 mg PO UD 03/15/21 03/15/21 fluticasone 250 mcg-salmeterol 50 1 inh INHALATION BID 03/15/21 03/15/21 mcg/dose blistr powdr for inhalation (Wixela Inhub) torsemide 10 mg tablet 20 mg PO QAM 03/15/21 03/15/21 vitamin B complex-folic acid 0.4 1 tab PO DAILY 03/15/21 03/15/21 mg tablet (Balance B-50 (with folic acid)) Previous Rx's Medication Instructions Recorded acetaminophen 500 mg tablet 1,000 mg PO Q8H PRN #60 tab 12/11/18 L.acidop,casei,lactis,rham-B.lact,brittany 2 cap PO DAILY #60 cap 01/14/21 625 mg (10 billion cell) capsule (Advanced Probiotic) apixaban 5 mg tablet (Eliquis) 5 mg PO BID #60 tab 01/14/21 losartan 25 mg tablet 25 mg PO QAM #30 tab 01/14/21 spironolactone 25 mg tablet 25 mg PO QAM #30 tab 01/14/21 umeclidinium 62.5 mcg/actuation 1 inh INHALATION DAILY #30 ea 01/14/21 blister powder for inhalation (Incruse Ellipta) Results & Data (ED) Home Medications Current Medication List: was personally reviewed by me Laboratory Data Attestation: I reviewed the patient's lab results. Result diagrams: 03/16/21 08:54 03/20/21 09:07 Lab Results 03/15/21 03/15/21 03/15/21 Range/Units 21:50 21:50 21:50 WBC 7.93 (4.8-10.8) K/uL RBC 5.26 (4.2-5.4) M/uL Hgb 16.6 H (12.0-16.0) g/dL Hct 46.4 (37-47) % MCV 88.2 (80-100) fL MCH 31.6 (25-34) pg MCHC 35.8 (32-36) g/dL RDW Std Deviation 45.0 (36.4-46.3) fL RDW Coeff of Giuliana 13.8 (11.5-14.5) % Plt Count 155 (130-400) K/uL MPV 12.0 H (7.4-10.4) fL Immature Gran % (Auto) 0.4 % Neut % (Auto) 56.7 % Lymph % (Auto) 28.1 % Burnet % (Auto) 12.9 % Eos % (Auto) 1.5 % Baso % (Auto) 0.4 % Neut # (Auto) 4.50 (1.4-6.5) K/uL Lymph # (Auto) 2.23 (1.2-3.4) K/uL Burnet # (Auto) 1.02 H (0.11-0.59) K/uL Eos # (Auto) 0.12 (0-0.5) K/uL Baso # (Auto) 0.03 (0-0.2) K/uL Immature Gran # (Auto) 0.03 H (0.00-0.02) K/uL PT 10.9 (9.0-12.0) Seconds INR 1.1 (0.9-1.1) APTT 30.9 (21.0-31.0) Seconds PTT Ratio 1.2 Sodium 129 L (136-145) mmol/L Potassium 4.3 (3.5-5.1) mmol/L Chloride 96 L (98-107) mmol/L Carbon Dioxide 27 (21-32) mmol/L Anion Gap 6.0 (3-11) BUN 47 H (7-18) mg/dl Creatinine 1.37 H (0.6-1.2) mg/dl Est Cr Clr Drug Dosing 27.6 ml/min Est GFR ( Amer) 43.3 ml/min Est GFR (Non-Af Amer) 37.4 ml/min BUN/Creatinine Ratio 34.4 H (10-20) Glucose 99 (70-99) mg/dl Calcium 9.6 (8.5-10.1) mg/dl Total Bilirubin 0.8 (0.2-1) mg/dl AST 42 H (15-37) U/L ALT 43 (12-78) U/L Alkaline Phosphatase 116 (45-117) U/L Total Creatine Kinase 80 (26-192) U/L CK-MB (CK-2) 3.0 (0.5-3.6) ng/ml CK/CKMB % Calc 3.8 H (0-3.0) Total Protein 7.6 (6.4-8.2) gm/dl Albumin 3.4 (3.4-5.0) gm/dl Globulin 4.2 H (2.5-4.0) gm/dl Albumin/Globulin Ratio 0.8 L (0.9-2) TSH 4.660 H (0.300-4.500) uIu/ml Free T4 1.26 (0.8-1.6) ng/dl COVID-19 Eval Order SARS-CoV-2 (PCR) (Negative) 03/16/21 03/16/21 Range/Units 01:12 01:12 WBC (4.8-10.8) K/uL RBC (4.2-5.4) M/uL Hgb (12.0-16.0) g/dL Hct (37-47) % MCV (80-100) fL MCH (25-34) pg MCHC (32-36) g/dL RDW Std Deviation (36.4-46.3) fL RDW Coeff of Giuliana (11.5-14.5) % Plt Count (130-400) K/uL MPV (7.4-10.4) fL Immature Gran % (Auto) % Neut % (Auto) % Lymph % (Auto) % Burnet % (Auto) % Eos % (Auto) % Baso % (Auto) % Neut # (Auto) (1.4-6.5) K/uL Lymph # (Auto) (1.2-3.4) K/uL Burnet # (Auto) (0.11-0.59) K/uL Eos # (Auto) (0-0.5) K/uL Baso # (Auto) (0-0.2) K/uL Immature Gran # (Auto) (0.00-0.02) K/uL PT (9.0-12.0) Seconds INR (0.9-1.1) APTT (21.0-31.0) Seconds PTT Ratio Sodium (136-145) mmol/L Potassium (3.5-5.1) mmol/L Chloride (98-107) mmol/L Carbon Dioxide (21-32) mmol/L Anion Gap (3-11) BUN (7-18) mg/dl Creatinine (0.6-1.2) mg/dl Est Cr Clr Drug Dosing ml/min Est GFR ( Amer) ml/min Est GFR (Non-Af Amer) ml/min BUN/Creatinine Ratio (10-20) Glucose (70-99) mg/dl Calcium (8.5-10.1) mg/dl Total Bilirubin (0.2-1) mg/dl AST (15-37) U/L ALT (12-78) U/L Alkaline Phosphatase (45-117) U/L Total Creatine Kinase (26-192) U/L CK-MB (CK-2) (0.5-3.6) ng/ml CK/CKMB % Calc (0-3.0) Total Protein (6.4-8.2) gm/dl Albumin (3.4-5.0) gm/dl Globulin (2.5-4.0) gm/dl Albumin/Globulin Ratio (0.9-2) TSH (0.300-4.500) uIu/ml Free T4 (0.8-1.6) ng/dl COVID-19 Eval Order Covid19 at [facility] SARS-CoV-2 (PCR) NEGATIVE (Negative) Administered Medications Acetaminophen (Acetaminophen 325 Mg Tab) 650 mg PO Q4H PRN PRN Reason: Pain or Fever Stop: 04/15/21 08:40 Last Admin: 03/20/21 09:06 Dose: 650 mg Documented by: [id number] Apixaban (Apixaban 5 Mg Tablet) 5 mg PO BID ARNOLDO Stop: 04/15/21 09:29 Last Admin: 03/20/21 09:44 Dose: 5 mg Documented by: [id number] Admin: 03/20/21 09:07 Dose: 5 mg Documented by: [id number] Admin: 03/19/21 20:57 Dose: 5 mg Documented by: [id number] Admin: 03/19/21 08:22 Dose: 5 mg Documented by: [id number] Admin: 03/18/21 20:03 Dose: 5 mg Documented by: [id number] Admin: 03/18/21 09:46 Dose: 5 mg Documented by: [id number] Admin: 03/17/21 20:24 Dose: 5 mg Documented by: [id number] Admin: 03/17/21 08:28 Dose: 5 mg Documented by: [id number] Admin: 03/16/21 20:00 Dose: 5 mg Documented by: [id number] Admin: 03/16/21 10:26 Dose: 5 mg Documented by: [id number] Aspirin (Aspirin 81 Mg Ectab) 81 mg PO HS [facility] Stop: 04/15/21 20:59 Last Admin: 03/19/21 20:57 Dose: 81 mg Documented by: [id number] Admin: 03/18/21 20:03 Dose: 81 mg Documented by: [id number] Admin: 03/17/21 20:16 Dose: Not Given Documented by: [id number] Admin: 03/16/21 20:00 Dose: 81 mg Documented by: [id number] Fluticasone/Vilanterol (Fluticasone/Vilanterol 100/25mcg 14 Puffs/Inhaler) 1 puffs INH DAILY [facility]; Protocol Stop: 04/15/21 09:29 Last Admin: 03/20/21 09:08 Dose: Not Given Documented by: [id number] Admin: 03/19/21 08:20 Dose: Not Given Documented by: [id number] Admin: 03/18/21 08:39 Dose: Not Given Documented by: [id number] Admin: 03/17/21 08:35 Dose: Not Given Documented by: [id number] Admin: 03/16/21 10:26 Dose: 1 puffs Documented by: [id number] Lactobacillus Acidoph/Casei/Rhamnos (Advanced Probiotic 1250 Mg Capsule) 2 cap PO DAILY ARNOLDO Stop: 04/15/21 09:29 Last Admin: 03/20/21 09:44 Dose: 2 cap Documented by: [id number] Admin: 03/19/21 08:23 Dose: 2 cap Documented by: [id number] Admin: 03/18/21 08:41 Dose: 2 cap Documented by: [id number] Admin: 03/17/21 08:28 Dose: 2 cap Documented by: [id number] Admin: 03/16/21 10:26 Dose: 2 cap Documented by: [id number] Losartan Potassium (Losartan Potassium 25 Mg Tab) 25 mg PO QAM [facility] Stop: 04/17/21 16:14 Last Admin: 03/19/21 08:24 Dose: Not Given Documented by: [id number] Admin: 03/18/21 17:27 Dose: 25 mg Documented by: [id number] Multivitamins (Multivitamin Tab) 1 tab PO DAILY [facility] Stop: 04/15/21 09:29 Last Admin: 03/20/21 09:45 Dose: 1 tab Documented by: [id number] Admin: 03/19/21 08:24 Dose: 1 tab Documented by: [id number] Admin: 03/18/21 08:40 Dose: 1 tab Documented by: [id number] Admin: 03/17/21 08:28 Dose: 1 tab Documented by: [id number] Admin: 03/16/21 10:26 Dose: 1 tab Documented by: [id number] Nystatin (Nystatin Powder 15gm Btl) 1 appln EXT BID ARNOLDO Stop: 04/19/21 08:59 Last Admin: 03/20/21 09:43 Dose: 1 appln Documented by: [id number] Torsemide (Torsemide 20 Mg Tab) 20 mg PO Q2D@0900 ARNOLDO Stop: 04/16/21 12:29 Last Admin: 03/19/21 08:24 Dose: Not Given Documented by: [id number] Admin: 03/17/21 13:09 Dose: 20 mg Documented by: [id number] Umeclidinium [place] (Umeclidinium [place] 62.5mcg/Blister 7 Puffs/Inhaler) 1 puffs INH DAILY ARNOLDO Stop: 04/15/21 09:29 Last Admin: 03/20/21 09:08 Dose: Not Given Documented by: [id number] Admin: 03/19/21 08:20 Dose: Not Given Documented by: [id number] Admin: 03/18/21 08:39 Dose: Not Given Documented by: [id number] Admin: 03/17/21 08:36 Dose: Not Given Documented by: [id number] Admin: 03/16/21 10:27 Dose: 1 puffs Documented by: [id number] Vitamin B Complex (Vitamin B Complex Tab) 1 tab PO DAILY ARNOLDO Stop: 04/15/21 09:29 Last Admin: 03/20/21 09:44 Dose: 1 tab Documented by: [id number] Admin: 03/19/21 08:23 Dose: 1 tab Documented by: [id number] Admin: 03/18/21 08:41 Dose: 1 tab Documented by: [id number] Admin: 03/17/21 08:28 Dose: 1 tab Documented by: [id number] Admin: 03/16/21 10:27 Dose: 1 tab Documented by: [id number] Vitamin D (Cholecalciferol 1,000 Units 25 Mcg Tab) 5,000 units PO DAILY ARNOLDO Stop: 04/15/21 09:29 Last Admin: 03/20/21 09:43 Dose: 5,000 units Documented by: [id number] Admin: 03/19/21 08:24 Dose: 5,000 units Documented by: [id number] Admin: 03/18/21 08:42 Dose: 5,000 units Documented by: [id number] Admin: 03/17/21 08:27 Dose: 5,000 units Documented by: [id number] Admin: 03/16/21 10:26 Dose: 5,000 units Documented by: [id number] Discontinued Medications Albuterol (Albuterol 0.083% Nebu Soln 3 Ml Vial) 2.5 mg NEB QIDR ARNOLDO Stop: 04/15/21 09:14 Last Admin: 03/17/21 10:58 Dose: 2.5 mg Documented by: [id number] Admin: 03/17/21 07:12 Dose: 2.5 mg Documented by: [id number] Admin: 03/16/21 19:00 Dose: 2.5 mg Documented by: [id number] Admin: 03/16/21 15:08 Dose: 2.5 mg Documented by: [id number] Admin: 03/16/21 12:54 Dose: Not Given Documented by: [id number] Admin: 03/16/21 10:48 Dose: 2.5 mg Documented by: [id number] Hydromorphone HCl (Hydromorphone Inj 0.5 Mg/0.5 Ml Syr) 0.25 mg IV Q6H PRN PRN Reason: Pain Stop: 03/29/21 23:32 Last Admin: 03/15/21 23:48 Dose: 0.25 mg Documented by: [id number] Sodium Chloride (Nss) 500 mls @ 999 mls/hr IV .Q31M ONE Stop: 03/16/21 00:03 Last Infusion: 03/16/21 00:33 Dose: 0 mls/hr Documented by: [id number] Admin: 03/15/21 23:48 Dose: 999 mls/hr Documented by: [id number] Sodium Chloride (Nss 1000ml) 500 mls @ 999 mls/hr IV .Q31M ONE Stop: 03/16/21 00:40 Last Infusion: 03/16/21 02:12 Dose: 0 mls/hr Documented by: [id number] Admin: 03/16/21 00:33 Dose: 999 mls/hr Documented by: [id number] Sodium Chloride (Nss 1000ml) 1,000 mls @ 75 mls/hr IV .[id number] ARNOLDO Stop: 04/15/21 08:40 Last Infusion: 03/16/21 14:43 Dose: 0 mls/hr Documented by: [id number] Admin: 03/16/21 08:52 Dose: 75 mls/hr Documented by: [id number] Non-Formulary Medication (Potassium Gluconate) 595 mg PO DAILY ARNOLDO Stop: 04/15/21 08:59 Last Admin: 03/16/21 11:16 Dose: Not Given Documented by: [id number] Ondansetron HCl (Ondansetron Inj 2 Mg/Ml 2 Ml Vial) 4 mg IV NOW [facility] Stop: 03/15/21 23:34 Last Admin: 03/15/21 23:48 Dose: 4 mg Documented by: [id number] Spironolactone (Spironolactone 25 Mg Tab) 25 mg PO Q2D@0900 [facility] Stop: 04/16/21 12:29 Last Admin: 03/17/21 13:09 Dose: 25 mg Documented by: [id number] Spironolactone (Spironolactone 25 Mg Tab) 25 mg PO DAILY [facility] Stop: 04/17/21 14:29 Last Admin: 03/19/21 08:24 Dose: Not Given Documented by: [id number] Admin: 03/18/21 15:40 Dose: 25 mg Documented by: [id number] Imaging Data Radiologist's Impression: Chest X-Ray 03/15/21 21:56 XR chest 1V portable HISTORY: 76 years-old Female hypotesnion acute hypertension COMPARISON: Chest CT and chest radiograph 01/05/2021 TECHNIQUE: Portable AP view of the chest FINDINGS: Cardiac silhouette is enlarged. Pulmonary artery hypertension with chronic interstitial coarsening. Calcified plaque of the thoracic aorta. Emphysema. No pneumothorax, pleural effusion, lobar airspace consolidation or overt pulmonary edema. Degenerative changes of the shoulders and spine. IMPRESSION: 1. No acute process. 2. Emphysema with chronic interstitial coarsening. 3. Cardiomegaly with findings of pulmonary artery hypertension. ACT 112: Negative or not required by law. The above report was generated using voice recognition software. It may contain grammatical, syntax or spelling errors. Electronically signed by: Abdifatah Rogers M.D. 03/16/2021 6:44 AM Abdomen/Pelvis CT 03/15/21 23:33 CT SCAN OF THE ABDOMEN AND PELVIS WITHOUT IV CONTRAST CLINICAL HISTORY: Right flank pain. COMPARISON STUDY: Abdominal ultrasound dated 01/06/2021. Chest CT scans dated 03/14/2018 and 01/05/2021. TECHNIQUE: CT scan of the abdomen and pelvis is performed from the lung bases to the proximal femora. Images are reviewed in the axial, sagittal, and coronal planes. IV contrast was not administered for this examination. A dose lowering technique was utilized adhering to the principles of ALARA. The examination is degraded by motion artifact, as well as by streak artifact from the arms which could not be elevated above the abdomen. FINDINGS: Lung bases: The heart is mildly enlarged and without pericardial effusion. The coronary arteries are densely calcified. Advanced and edematous change is noted at the lung bases. There is bibasilar scarring/atelectasis. There is no airspace consolidation typical for pneumonia or pleural effusion. A 12 mm lobular opacity at the right lung base seen on image #26 has been present dating back to 2018 and is of low suspicion. Liver: The unenhanced liver is normal in size, contour, and attenuation. There is no intrahepatic biliary ductal dilatation. Gallbladder: There are large calcified gallstones with no CT evidence of acute cholecystitis. Spleen: Normal in size and attenuation. Pancreas: The unenhanced pancreas is atrophic and grossly unremarkable. This is not well assessed. Adrenal glands: Unremarkable. Kidneys: The unenhanced kidneys demonstrate cortical atrophy and are without hydronephrosis. There are no renal calculi identified. There is no evidence of contour deforming renal mass lesion. Abdominal vasculature: The abdominal aorta is normal in course and caliber noting advanced atherosclerotic calcification. Bowel: There is moderate colonic fecal retention. No bowel obstruction is seen. There is mild to moderate colonic diverticulosis without CT evidence of acute diverticulitis. The appendix is normal as visualized. Peritoneum: There is no intraperitoneal free air or abdominal ascites. Lymphadenopathy: None. Pelvic viscera: The bladder is distended but otherwise normal in appearance. The uterus and adnexa are normal as visualized. Skeletal structures: The skeletal structures are osteopenic. There are compression deformities at all levels from T12 to L5. There are bilateral pars d efects at L5. Lumbosacral spondylosis is noted. No lytic or blastic lesions are seen. There are healed right anterior rib fractures. IMPRESSION: 1. Significant streak and motion compromised examination. 2. There are no acute infectious or inflammatory findings identified in the abdomen or pelvis. 3. Moderate constipation. 4. Cardiomegaly and emphysema. 5. There are numerous chronic appearing thoracolumbar compression deformities. See report of lumbar spinal CT performed the same day for detailed findings. 6. Cholelithiasis. 7. Additional findings as above. ACT 112: Negative or not required by law. Electronically signed by: Bogdan Graham M.D. 03/16/2021 9:[address] 03/15/21 23:33 CT lumbar spine wo con HISTORY: 76 years-old Female Pt c/o Rt sided flank pain acute low back and right-sided flank pain COMPARISON: CT abdomen and pelvis of same day, chest CT 01/05/2021, lumbar spine radiographs 12/10/2018 TECHNIQUE: Multiple axial CT images of the lumbar spine were obtained without the use of IV contrast. A dose lowering technique was used consistent with the principals of SANKET. FINDINGS: Cholelithiasis noted on the senior speech pathologist localizer images. Bibasilar densities suggestive of atelectasis/fibrosis. Severe calcified plaque the abdominal aorta and branch vessels. Demineralized appearance of the bones. Vacuum disc phenomenon is noted at several levels. Mild to moderate spondylitic spurring with posterior annular disc bulging noted at several levels. There is 4 mm anterolisthesis L5 on S1 with chronic bilateral pars defects. Unchanged appearance of the chronic T12, L1, L2, L4 and L5 compression deformities. Compression deformity at L3 has progressed from the 12/10/2018 exam and is age-indeterminate. No paravertebral edema or retropulsion. The imaged sacrum and iliac bones appear intact. Multilevel central canal or neural foraminal narrowing. IMPRESSION: 1. Moderate L3 compression deformity has progressed from 12/10/2018, age- indeterminate without retropulsion or paravertebral edema. Correlate with point tenderness. 2. Additional chronic thoracolumbar compression deformities as above. 3. Demineralized appearance of the bones. 4. Chronic bilateral L5 pars defects with grade 1 anterolisthesis. 5. Cholelithiasis. ACT 112: Negative or not required by law. The above report was generated using voice recognition software. It may contain grammatical, syntax or spelling errors. Electronically signed by: Abdifatah Rogers M.D. 03/16/2021 7:51 AM Discharge Plan Visit Data Chief Complaint: Hypotension Stated Complaint: Hypotension/lower back pain ED Provider: Olvin Chan Discharge Problem: Hypotension, Venous stasis dermatitis of left lower extremity, Acute on chronic right-sided congestive heart failure, COPD (chronic obstructive pulmonary disease) Patient Disposition: Admitted As Inpatient Discharge Instructions Interventions: ED Discharge Assessment Last Done: 03/16/21 08:42
--- NOTE | 2021-03-20 15:42 | Cardiology Progress Note ---
Date of Service March 20, 2021 Assessment & Plan (1) Chronic respiratory failure with hypoxia, on home O2 therapy: (2) Chronic systolic dysfunction of right ventricle: (3) Pulmonary hypertension: Plan: Continue to hold losartan, perhaps moving forward this is not a good medication for her although she did tolerate it a month ago. Agree with torsemide every other day, due 03/21. As noted during previous hospital stay, prognosis is poor, I do not think we will build to ease her dyspnea. Admission and Anticipated Discharge Date Admission Date: March 16, 2021 Subjective Patient seen in follow-up. She is in good spirits. No acute complaints. Ongoing chronic dyspnea. Losartan on hold. She is due to receive torsemide tomorrow. Telemetry reveals sinus rhythm in the 80s to 90s. Physical Exam Constitutional: + cachectic Respiratory: normal respiratory effort, lungs clear to auscultation Cardiovascular: RRR, no murmur, no edema Gastrointestinal (Abdomen): normal bowel sounds, soft, nontender, no hepatosplenomegaly Neurologic: PERRL, EOMI, accommodation nl, no face palsy, no dysarthria Results & Data ([facility]) Vital Signs (Past 12 Hours) Vital Signs Temp Pulse Pulse Resp BP BP Pulse Ox 03/20/21 15:28 36.6 C 95 H 20 112/73 90 03/20/21 11:34 35.7 C L 95 H 22 101/67 91 03/20/21 08:00 36.0 C L 68 76 16 101/61 95
[2021-03-20] MEDS: ASPIRIN 81 MG ECTAB PO SCH (20:48)
[2021-03-21] MEDS: CHOLECALCIFEROL 1,000 UNITS 25 MCG TAB PO SCH (10:31)
[2021-03-21] MEDS: APIXABAN 5 MG TABLET PO SCH ×2 (10:31→21:55)
[2021-03-21] MEDS: ADVANCED PROBIOTIC 1250 MG CAPSULE PO SCH (10:32)
[2021-03-21] MEDS: FLUTICASONE/VILANTEROL 100/25MCG 14 PUFFS/INHALER INH SCH ×2 (10:32→10:40)
[2021-03-21] MEDS: MULTIVITAMIN TAB PO SCH (10:33)
[2021-03-21] MEDS: TORSEMIDE 20 MG TAB PO SCH (10:33)
[2021-03-21] MEDS: UMECLIDINIUM BROMIDE 62.5MCG/BLISTER 7 PUFFS/INHALER INH SCH ×2 (10:33→10:40)
[2021-03-21] MEDS: NYSTATIN POWDER 15GM BTL EXT SCH ×2 (10:33→21:54)
[2021-03-21] MEDS: VITAMIN B COMPLEX TAB PO SCH (10:34)
--- NOTE | 2021-03-21 11:38 | Hospitalist Progress Note ---
Date of Service March 21, 2021 Assessment & Plan (1) Hypotension: Plan: ASSESSMENT AND PLAN: This is a 76-year-old female who presents with hypotension. 1. Hypotension: Possible dehydration, in the setting of torsemide and Aldactone use --Blood pressure improving Discussed with Dr. Landis, will reduce torsemide to 20 mg every other day and resume usual Aldactone 5 mg p.o. daily -- hold home losartan --Gentle IV fluids provided, discontinued now --[employer] consulted 03/21/2021 Systolic BP mostly in the low 100s Positive mild rales at the bases Due for torsemide every other day today Hold losartan, spironolactone due to marginal blood pressure Monitor closely Chest x-ray: Emphysema with no acute changes 2. History of chronic systolic and diastolic congestive heart failure: Last echo done in December 2020. EF of 35% to 40%, [id number] tricuspid regurgitation, severe pulmonary hypertension, cor pulmonale, right ventricle severely dilated. -- -- Losartan held due to hypotension Apparently patient not taking metoprolol --Monitor 3. History of chronic obstructive pulmonary disease, history of severe pulmonary hypertension,Cor pulmonale chronic respiratory failure on 4-5 liters oxygen at rest and 6 liters with ambulation. --Stable 4. History of unspecified atrial fibrillation: Not on Toprol-XL currently, on Eliquis. 5. L3 Compression Deformity Follow the final reports. Pain control. PT, OT. If needed, consult o rthopedics. --CT lumbar spine: 1. Moderate L3 compression deformity has progressed from 12/10/2018, age- indeterminate without retropulsion or paravertebral edema. Correlate with point tenderness. 2. Additional chronic thoracolumbar compression deformities as above. 3. Demineralized appearance of the bones. 4. Chronic bilateral L5 pars defects with grade 1 anterolisthesis. 5. Cholelithiasis. --Reports mild back pain, declines additional medication at this time Monitor 6. Acute kidney injury on chronic kidney disease stage III: -- Baseline creatinine 1, currently with creatinine of 1.37. Holding losartan IV fluids given -- Creatinine back to baseline 7. History of chronic obstructive pulmonary disease and history of lung disease: --Stable continue home inhalers. 8. Right lower extremity wound --Healing well --Follows with wound care 9. History of ambulatory dysfunction: PT, OT when stable. 10. The patient is a [employer]. 11. Deep venous thrombosis prophylaxis: On Eliquis. plan of care discussed with patient in detail and at length all questions answered She is understanding, agreeable, comfortable with the plan of care Admission and Anticipated Discharge Date Admission Date: March 16, 2021 Subjective Follow-up for hypertension, CHF, etc. Seen sitting up in bed, comfortable, not in distress On 4 L of oxygen by nasal cannula Feels somewhat dyspneic today Denies cough or chills No chest pain, palpitations, dizziness No other symptom Review of Systems Review of Systems: all noted and negative except for above Physical Exam Physical Exam: General- oriented x 3, not in distress, speaks in sentences with no effort or accessory muscle use Eyes- anicteric Neck- no JVD Lungs-mild rales at the bases, no wheezing, good air entry bilaterally Heart- normal rate, regular rhythm; no murmurs Abdomen- normal bowel sounds, nondistended, soft, nontender Extremities- no pretibial edema, no calf tenderness Neuro- alert, oriented x 3; no gross focal neurologic deficits Skin- warm & dry Results & Data Results & Data ([facility]) Vital Signs (Past 12 Hours) Vital Signs Temp Pulse Pulse Resp BP BP Pulse Ox 03/21/21 10:30 76 107/70 03/21/21 07:26 36.5 C 76 18 94 03/21/21 07:00 67 03/21/21 04:05 36.5 C 77 18 114/72 95 03/20/21 23:57 36.8 C 94 H 18 119/79 93 all noted and reviewed including below (1) Hypotension Hypotension type: unspecified hypotension type Qualified Code(s): I95.9 - Hypotension, unspecified
--- NOTE | 2021-03-21 12:17 | XRay Report ---
XR chest 1V portable HISTORY: 76 years-old Female shortness of breath acute shortness of breath COMPARISON: Chest radiograph 03/15/2021, chest CT 01/05/2021. TECHNIQUE: Portable AP view of the chest FINDINGS: Cardiac silhouette is enlarged. Pulmonary artery hypertension with chronic interstitial coarsening. C alcified plaque of the thoracic aorta. Emphysema. No definite pneumothorax, pleural effusion, lobar a irspace consolidation or overt pulmonary edema. Linear lucency of the left lung apex medially is like ly artifactual. Mild linear left lung base atelectasis/scarring. Degenerative changes of the shoulder s and spine. IMPRESSION: 1. Emphysema without acute process. 2. Cardiomegaly with pulmonary artery hypertension. ACT 112: Negative or not required by law. The above report was generated using voice recognition software. It may contain grammatical, syntax o r spelling errors. Electronically signed by: Abdifatah Rogers M.D. 03/21/2021 12:15 PM
--- NOTE | 2021-03-21 12:20 | Cardiology Progress Note ---
Date of Service March 21, 2021 Assessment & Plan (1) Chronic respiratory failure with hypoxia, on home O2 therapy: (2) Chronic systolic dysfunction of right ventricle: (3) Pulmonary hypertension: Plan: Continue to hold losartan, perhaps moving forward this is not a good medication for her although she did tolerate it a month ago. Agree with torsemide every other day, administered today 03/21. As noted during previous hospital stay, prognosis is poor, I do not think we will build to ease her dyspnea. Admission and Anticipated Discharge Date Admission Date: March 16, 2021 Subjective Patient seen in follow-up. Ongoing dyspnea noted, worse overnight last night, Rales noted on exam. Telemetry reveals sinus rhythm in the 70s to 80s. Physical Exam Constitutional: + cachectic Respiratory: normal respiratory effort, lungs clear to auscultation Cardiovascular: RRR, no murmur, no edema Gastrointestinal (Abdomen): normal bowel sounds, soft, nontender, no hepatosp lenomegaly Neurologic: PERRL, EOMI, accommodation nl, no face palsy, no dysarthria Results & Data ([facility]) Vital Signs (Past 12 Hours) Vital Signs Temp Pulse Pulse Resp BP BP Pulse Ox 03/21/21 10:30 76 107/70 03/21/21 07:26 36.5 C 76 18 94 03/21/21 07:00 67 03/21/21 04:05 36.5 C 77 18 114/72 95
[2021-03-21] MEDS: ASPIRIN 81 MG ECTAB PO SCH (21:55)
[2021-03-22] MEDS: CHOLECALCIFEROL 1,000 UNITS 25 MCG TAB PO SCH (08:46)
[2021-03-22] MEDS: ADVANCED PROBIOTIC 1250 MG CAPSULE PO SCH (08:46)
[2021-03-22] MEDS: MULTIVITAMIN TAB PO SCH (08:46)
[2021-03-22] MEDS: VITAMIN B COMPLEX TAB PO SCH (08:47)
[2021-03-22] MEDS: APIXABAN 5 MG TABLET PO SCH ×2 (08:47→21:15)
[2021-03-22] MEDS: UMECLIDINIUM BROMIDE 62.5MCG/BLISTER 7 PUFFS/INHALER INH SCH ×2 (08:48→09:41)
[2021-03-22] MEDS: FLUTICASONE/VILANTEROL 100/25MCG 14 PUFFS/INHALER INH SCH ×2 (08:48→09:41)
[2021-03-22] MEDS: NYSTATIN POWDER 15GM BTL EXT SCH ×2 (08:49→21:16)
--- NOTE | 2021-03-22 19:50 | Hospitalist Progress Note ---
Date of Service March 22, 2021 Assessment & Plan (1) Hypotension: Plan: ASSESSMENT AND PLAN: This is a 76-year-old female who presents with hypotension. 1. Hypotension: Possible dehydration, in the setting of torsemide and Aldactone use --Usual torsemide, Aldactone, losartan daily held initially --Slowly reintroduced and titrated based upon blood pressure --Currently on torsemide every other day with stable blood pressure --Losartan and Aldactone stopped Cardiology on board Monitor closely Repeat chest x-ray: Emphysema with no acute changes 2. History of chronic systolic and diastolic congestive heart failure: Last echo done in December 2020. EF of 35% to 40%, [id number] tricuspid regurgitation, severe pulmonary hypertension, cor pulmonale, right ventricle severely dilated. -- -- Losartan held due to hypotension Apparently patient not taking metoprolol --Management of diuretics as above 3. History of chronic obstructive pulmonary disease, history of severe pulmonary hypertension,Cor pulmonale chronic respiratory failure on 4-5 liters oxygen at rest and 6 liters with ambulation. --Stable 4. History of unspecified atrial fibrillation: Not on Toprol-XL currently, on Eliquis. 5. L3 Compression Deformity Follow the final reports. Pain control. PT, OT. If needed, consult orthopedics. --CT lumbar spine: 1. Moderate L3 compression deformity has progressed from 12/10/2018, age- indeterminate without retropulsion or paravertebral edema. Correlate with point tenderness. 2. Additional chronic thoracolumbar compression deformities as above. 3. Demineralized appearance of the bones. 4. Chronic bilateral L5 pars defects with grade 1 anterolisthesis. 5. Cholelithiasis. --Reports mild back pain, declines additional medication at this time Monitor 6. Acute kidney injury on chronic kidney disease stage III: -- Baseline creatinine 1, currently with creatinine of 1.37. Holding losartan IV fluids given -- Creatinine back to baseline 7. History of chronic obstructive pulmonary disease and history of lung disease: --Stable continue home inhalers. 8. Right lower extremity wound --Healing well --Follows with wound care 9. History of ambulatory dysfunction: PT, OT when stable. 10. The patient is a [employer]. 11. Deep venous thrombosis prophylaxis: On Eliquis. Disposition Anticipate discharge to home when medically stable with home health services plan of care discussed with patient in detail and at length all questions answered She is understanding, agreeable, comfortable with the plan of care Admission and Anticipated Discharge Date Admission Date: March 16, 2021 Subjective Follow-up for CHF, right-sided heart failure, hypertension, etc. Seen resting in bedside chair, comfortable, in good spirits States that she feels okay overall except for baseline exertional dyspnea No cough, fevers or chills No chest pain, palpitations, dizziness No other symptoms Review of Systems Review of Systems: all noted and negative except for above Physical Exam Physical Exam: General- oriented x 3, not in distress, speaks in sentences with no effort or accessory muscle use Eyes- anicteric Neck- no JVD Lungs-clear breath sounds, no crackles no wheezing bilaterally Heart- normal rate, regular rhythm; no murmurs Abdomen- normal bowel sounds, nondistended, soft, nontender Extremities- no pretibial edema, no calf tenderness Neuro- alert, oriented x 3; no gross focal neurologic deficits Skin- warm & dry Results & Data Results & Data ([facility]) Vital Signs (Past 12 Hours) Vital Signs Temp Pulse Pulse Resp BP BP Pulse Ox 03/22/21 19:11 36.5 C 80 20 132/78 92 03/22/21 15:20 36.4 C L 71 18 110/71 95 03/22/21 12:44 36.6 C 74 18 119/54 L 91 03/22/21 08:10 36.2 C L 63 20 111/63 96 03/22/21 08:00 64 all noted and reviewed including below (1) Hypotension Hypotension type: unspecified hypotension type Qualified Code(s): I95.9 - Hypotension, unspecified
[2021-03-22] MEDS: ASPIRIN 81 MG ECTAB PO SCH (21:18)
[2021-03-23] MEDS: APIXABAN 5 MG TABLET PO SCH ×2 (09:03→21:35)
[2021-03-23] MEDS: TORSEMIDE 20 MG TAB PO SCH (09:03)
[2021-03-23] MEDS: VITAMIN B COMPLEX TAB PO SCH (09:03)
[2021-03-23] MEDS: ADVANCED PROBIOTIC 1250 MG CAPSULE PO SCH (09:04)
[2021-03-23] MEDS: MULTIVITAMIN TAB PO SCH (09:04)
[2021-03-23] MEDS: CHOLECALCIFEROL 1,000 UNITS 25 MCG TAB PO SCH (09:04)
[2021-03-23] MEDS: FLUTICASONE/VILANTEROL 100/25MCG 14 PUFFS/INHALER INH SCH ×2 (09:04→09:06)
[2021-03-23] MEDS: NYSTATIN POWDER 15GM BTL EXT SCH ×2 (09:05→21:35)
[2021-03-23] MEDS: UMECLIDINIUM BROMIDE 62.5MCG/BLISTER 7 PUFFS/INHALER INH SCH ×2 (09:05→09:06)
--- NOTE | 2021-03-23 18:58 | Hospitalist Progress Note ---
Date of Service March 23, 2021 Assessment & Plan (1) Hypotension: Plan: Patient is a 76 yr female who presents with hypotension Hypotension: Possible dehydration, in the setting of torsemide and Aldactone Losartan and Aldactone discontinued--upon discharge as well Continue torsemide every other day Monitor BP Appreciate Cardiology Input H/O Chronic systolic and diastolic congestive heart failure Echo done in December 2020. EF of 35% to 40%, [id number] tricuspid regurgitation, severe pulmonary hypertension, cor pulmonale, right ventricle severely dilated. Losartan DCed due to hypotension Apparently patient not taking metoprolol Continue diuretics as tolerated Needs follow up with Cardiology upon discharge Chronic obstructive pulmonary disease H/O severe pulmonary hypertension Cor pulmonale chronic respiratory failure on 4-5 liters oxygen at rest and 6 liters with ambulation. Continue supplemental Continue home inhalers Atrial fibrillation: Not on Toprol-XL currently on Eliquis for anticoagulation L3 Compression Deformity -Lumbar CT:Moderate L3 compression deformity has progressed from 12/10/2018, age- indeterminate without retropulsion or paravertebral edema. Correlate with point tenderness. Additional chronic thoracolumbar compression deformities as above. Demineralized appearance of the bones. Chronic bilateral L5 pars defects with grade 1 anterolisthesis. Cholelithiasis. -Pain control PT, OT Acute kidney injury on chronic kidney disease stage III: Baseline creatinine 1 Cr: 1.37 > 0.90 Received IV fluids Monitor Right lower extremity wound Healing well Follows with wound care H/o ambulatory dysfunction PT, OT DVT Px: On Eliquis. Admission and Anticipated Discharge Date Admission Date: March 16, 2021 Subjective Patient is seen and examined at bedside States feeling better today Minimal dyspnea on exertion Offers no other complaints Denies chest pain, dizziness, nausea, abdominal pain Review of Systems Review of Systems: All systems reviewed & are unremarkable except as noted in Subjective Physical Exam Physical Exam: Physical Exam: Vitals signs as noted above General Appearance:Thin, frail, no apparent distress Head: normocephalic, Atraumatic Eyes: normal inspection, EOMI Neck: supple, Trachea midline Respiratory/Chest: Normal breath sounds, + Basal Crackles Cardiovascular: S1, S2, No murmur Abdomen/GI:Soft, Non tender, Bowel sounds present Extremities/Musculoskeletal:normal inspection, Trace pedal edema, Right LE wound in dressing Neurologic/Psych:AAOX3, grossly no focal neurological deficits Skin: normal color, warm Results & Data Results & Data ([facility]) Vital Signs (Past 12 Hours) Vital Signs Temp Pulse Pulse Resp BP BP Pulse Ox 03/23/21 15:51 36.3 C L 78 22 104/62 91 03/23/21 14:20 105 H 03/23/21 11:33 36.2 C L 83 20 114/72 92 03/23/21 08:15 80 03/23/21 07:05 36.2 C L 69 17 117/74 96 (1) Hypotension Hypotension type: unspecified hypotension type Qualified Code(s): I95.9 - Hypotension, unspecified
[2021-03-23] MEDS: ASPIRIN 81 MG ECTAB PO SCH (21:35)
[2021-03-24 04:18] VITALS: TEMP 97.5
[2021-03-24] MEDS: CHOLECALCIFEROL 1,000 UNITS 25 MCG TAB PO SCH (08:05)
[2021-03-24] MEDS: APIXABAN 5 MG TABLET PO SCH (08:05)
[2021-03-24] MEDS: ADVANCED PROBIOTIC 1250 MG CAPSULE PO SCH (08:06)
[2021-03-24] MEDS: VITAMIN B COMPLEX TAB PO SCH (08:06)
[2021-03-24] MEDS: TORSEMIDE 20 MG TAB PO SCH (08:06)
[2021-03-24] MEDS: MULTIVITAMIN TAB PO SCH (08:06)
[2021-03-24] MEDS: NYSTATIN POWDER 15GM BTL EXT SCH (08:07)
[2021-03-24] MEDS: UMECLIDINIUM BROMIDE 62.5MCG/BLISTER 7 PUFFS/INHALER INH SCH (08:11)
[2021-03-24] MEDS: FLUTICASONE/VILANTEROL 100/25MCG 14 PUFFS/INHALER INH SCH (08:11)
[2021-03-24 09:06] LABS: BUN Creatinine Ratio 25.4 (10-20); Creatinine Clr Calc Pharmacy 41.6 ml/min; Est GFR (Non-African American) 61.3 ml/min; Magnesium 2.1 mg/dl (1.8-2.4); Potassium 3.4 mmol/L (3.5-5.1)
[2021-03-24] MEDS ORDERED: POTASSIUM CHLORIDE CRTAB 20 MEQ TABCR PO ONE (09:26)
--- NOTE | 2021-03-24 13:36 | Hospitalist Progress Note ---
Date of Service March 24, 2021 Assessment & Plan (1) Hypotension: Plan: Patient is a 76 yr female who presents with hypotension Hypotension: Possible dehydration, in the setting of torsemide and Aldactone Losartan and Aldactone discontinued--DC upon discharge as well Continue torsemide every other day Appreciate Cardiology Input BP stable now H/O Chronic systolic and diastolic congestive heart failure Echo done in December 2020. EF of 35% to 40%, [id number]-[id number] tricuspid regurgitation, severe pulmonary hypertension, cor pulmonale, right ventricle severely dilated. Losartan DCed due to hypotension Apparently patient not taking metoprolol Continue diuretics as tolerated Volume status improved Needs follow up with Cardiology upon discharge Continue current diuretics Chronic obstructive pulmonary disease H/O severe pulmonary hypertension Cor pulmonale chronic respiratory failure on 4-5 liters oxygen at rest and 6 liters with ambulation. Continue supplemental oxygen Continue home inhalers Atrial fibrillation: Not on Toprol-XL currently on Eliquis for anticoagulation L3 Compression Deformity -Lumbar CT:Moderate L3 compression deformity has progressed from 12/10/2018, age- indeterminate without retropulsion or paravertebral edema. Correlate with point tenderness. Additional chronic thoracolumbar compression deformities as above. Demineralized appearance of the bones. Chronic bilateral L5 pars defects with grade 1 anterolisthesis. Cholelithiasis. -Pain control PT, OT Acute kidney injury on chronic kidney disease stage III: Baseline creatinine 1 Cr: 1.37 > 0.90 Received IV fluids Monitor Right lower extremity wound Healing well Follows with wound care H/o ambulatory dysfunction PT, OT DVT Px: On Eliquis. Disposition: Home with Home Health Admission and Anticipated Discharge Date Admission Date: March 16, 2021 Subjective Patient is seen and examined at bedside No new complaints Denies dyspnea, chest pain, dizziness, nausea, abdominal pain PLan to discharge home today Review of Systems Review of Systems: All systems reviewed & are unremarkable except as noted in Subjective Physical Exam Physical Exam: Physical Exam: Vitals signs as noted above General Appearance:Thin, frail, no apparent distress Head: normocephalic, Atraumatic Eyes: normal inspection, EOMI Neck: supple, Trachea midline Respiratory/Chest: Normal breath sounds, +minimal basal Crackles Cardiovascular: S1, S2, No murmur Abdomen/GI:Soft, Non tender, Bowel sounds present Extremities/Musculoskeletal:normal inspection, Trace pedal edema, Right LE wound in dressing Neurologic/Psych:AAOX3, grossly no focal neurological deficits Skin: normal color, warm Results & Data Results & Data ([facility]) Vital Signs (Past 12 Hours) Vital Signs Temp Pulse Pulse Resp BP BP Pulse Ox 03/24/21 10:59 77 20 91 03/24/21 08:03 36.4 C L 71 18 134/81 97 03/24/21 07:34 75 03/24/21 04:00 36.4 C L 72 16 113/75 97 Laboratory Results [facility] 03/24/21 08:00 Sodium 137 Potassium 3.4 L Chloride 104 Carbon Dioxide 29 BUN 23 H Creatinine 0.91 Glucose 84 Calcium 9.0 (1) Hypotension Hypotension type: unspecified hypotension type Qualified Code(s): I95.9 - Hypotension, unspecified
--- NOTE | 2021-03-24 13:42 | Discharge Summary ---
Date of Service March 24, 2021 Admission HPI Per Admitting Provider CHIEF COMPLAINT: Hypotension. HISTORY OF PRESENT ILLNESS: This is a 76-year-old female with past medical history significant for chronic COPD, cor pulmonale, pulmonary hypertension, chronic systolic CHF, EF of 40%, chronic respiratory failure on home oxygen 4-5 liters while at rest and 6 liters on ambulation, [employer], unspecified atrial fibrillation, chronic diastolic CHF, restrictive lung disease, hy pothyroidism, hyperlipidemia, chronic kidney disease stage III, ambulatory dysfunction, history of thromboembolism varicose veins. Presents with hypotension. The patient was in the hospital in December with [id number] diastolic CHF, was discharged on torsemide 20 mg daily, Aldactone 25 mg p.o. daily, also supposed to be on metoprolol succinate 25 mg daily and losartan 25 mg p.o. daily, and she is on home oxygen. The patient says she is eating very low salt, less than 1.5 g daily and she lost a lot of weight. She says she is living with her daughter since she got discharged and daughter is very strict with her diet. She states she is having a lot of hunger because she is not eating much.The medication list that she brought, it seems she is not on metoprolol, but she is taking losartan, torsemide, and Aldactone. She ambulates with a walker. Lately her blood pressure is running low at home. She saw the PCP and was told to cut the losartan to half dose and take torsemide and A ldactone as needed, but after going home the blood pressure was still low below 90s, so she came here. With the fluids, the blood pressure is improving. Currently, resting comfortably and hemodynamically stable, able to give her history. She says she swallows okay. Denies any palpitations. Denies any dizziness. She is ambulating okay with walker , but slowly. Denies any headache. Currently, no blurred visions, no earache, no runny nose, no sore throat, no cough, no fevers, no nausea, no diarrhea or constipation. Denies any blood in stool or black stools. She says her urine output has come down lately. She is also drinking a lot of water. She has right lower extremity wounds, they are healing well and she has only one more appointment with wound care clinic. Complains of back pain. Admission Exam Per Admitting Provider PHYSICAL EXAMINATION: GENERAL: The patient is old and frail, not in acute distress. VITAL SIGNS: Temperature 36.5, pulse 81, respiratory rate 15, blood pressure 95/56, oxygen 94% on nasal cannula. HEENT: Atraumatic. Pupils equal, round, and reactive to light. Oral mucosa moist. NECK: No JVD, no neck masses. CARDIOVASCULAR: S1 and S2 heard. Regular rate and rhythm. No murmur, no gallop. RESPIRATORY SYSTEM: Normal AP diameter. No accessory muscle use. No wheezing, no crackles. ABDOMEN: Soft, bowel sounds present, nontender, no distention. CENTRAL NERVOUS SYSTEM: Cranial nerves II-XII grossly intact, nonfocal. EXTREMITIES: No lower extremity edema present. Wounds on the right lower extremity on the killian region healing well. Principal Diagnosis Hypotension Chronic systolic and diastolic congestive heart failure L3 Compression Deformity Acute Kidney Injury Discharge Data Allergies Allergy/AdvReac Type Severity Reaction Status Date / Time No Known Allergies Allergy Verified 03/15/21 22:42 Consultations 03/16/21 01:08 ED Decision to Admit Stat 03/16/21 08:41 Consult Cardiology Routine Ordered Studies 03/15/21 23:33 CT abd pelvis wo con Urgent CT lumbar spine wo con Urgent Hospital Course (1) Hypotension: Patient is a 76 yr female who presents with hypotension Hypotension: Possible dehydration, in the setting of torsemide and Aldactone Losartan and Aldactone discontinued--DC upon discharge as well Continue torsemide every other day Appreciate Cardiology Input BP stable now H/O Chronic systolic and diastolic congestive heart failure Echo done in December 2020. EF of 35% to 40%, [id number] tricuspid regurgitation, severe pulmonary hypertension, cor pulmonale, right ventricle severely dilated. Losartan DCed due to hypotension Apparently patient not taking metoprolol Continue diuretics as tolerated Volume status improved Needs follow up with Cardiology upon discharge Continue current diuretics Chronic obstructive pulmonary disease H/O severe pulmonary hypertension Cor pulmonale chronic respiratory failure on 4-5 liters oxygen at rest and 6 liters with ambulation. Continue supplemental oxygen Continue home inhalers Atrial fibrillation: Not on Toprol-XL currently on Eliquis for anticoagulation L3 Compression Deformity -Lumbar CT:Moderate L3 compression deformity has progressed from 12/10/2018, age- indeterminate without retropulsion or paravertebral edema. Correlate with point tenderness. Additional chronic thoracolumbar compression deformities as above. Demineralized appearance of the bones. Chronic bilateral L5 pars defects with grade 1 anterolisthesis. Cholelithiasis. -Pain control PT, OT Acute kidney injury on chronic kidney disease stage III: Baseline creatinine 1 Cr: 1.37 > 0.90 Received IV fluids Monitor Right lower extremity wound Healing well Follows with wound care H/o ambulatory dysfunction PT, OT DVT Px: On Eliquis. Disposition: Home with Home Health Total Time Total Time Spent Total Time Spent (In Minutes): 40 minutes Discharge Plan Discharge Items Patient Disposition: Home - Home Health Services Reason For Visit: Hypotension Discharge Diagnosis: Hypotension Chronic systolic and diastolic congestive heart failure L3 Compression Deformity Acute Kidney Injury Activity: Per Instructions section Exercise/Sports: Gradually increase as tolerated Non-emergency contact: Primary Care Provider and [facility] Call non-emergency contact if: you have any medication questions, your symptoms worsen, your pain is concerning for you and you have a fever Follow-up/Referrals: John Landis DO [[facility]er] - (Date & Time 05/10/2021 3:30 PM Provider John Landis DO Department Cardiology [facility] ) Franky Choi MD [Primary Care Provider] - (Date & Time 03/30/2021 11:20 AM Provider Toni Mancuso MD Department Family Medicine [facility] ) Diet: Heart Healthy Fluids: 2000ml (8 cups) Addtl Attending Provider Instructions: Follow-up with your primary care physician on 03/30/2021 at 11:20 AM Follow up with your [facility] in 4-6 weeks Seek immediate medical attention if your symptoms reoccur or worsen Please take all medications as instructed on discharge list below. Please call if you have any questions or problems. You can reach a [facility] spitalist on duty at [facility] 24 hours a day by calling [phone] Pending Studies at Discharge: No Stand-Alone Forms: My [facility] [employer] [place], Smoking Cessation Medications and DC Order Prescriptions: Continued cholecalciferol (vitamin D3) 125 mcg (5,000 unit) capsule 125 mcg PO DAILY RF: 0 aspirin [Adult Aspirin Regimen] 81 mg tablet,delayed release (DR/EC) 81 mg PO HS RF: 0 potassium gluconate 595 mg (99 mg) tablet 595 mg PO DAILY RF: 0 multivitamin [One-A-Day Essential] Tablet 1 tab PO DAILY RF: 0 omega-3 fatty acids [Fish Oil Concentrate] 1,000 mg capsule 500 mg PO DAILY RF: 0 coenzyme Q10 [Q-Sorb Co Q-10] 200 mg capsule 200 mg PO DAILY RF: 0 acetaminophen 500 mg tablet 1,000 mg PO Q8H PRN (Reason: fever or pain) Qty: 60 RF: 0 albuterol sulfate [Ventolin HFA] 90 mcg/actuation Hfa Aerosol Inhaler 2 puff INHALATION Q4H PRN (Reason: Shortness Of Breath) RF: 0 vitamin B complex-folic acid [Balance B-50 (with folic acid)] 0.4 mg tablet 1 tab PO DAILY RF: 0 fluticasone propion-salmeterol [Wixela Inhub] 250-50 mcg/dose blister with device 1 inh INHALATION BID RF: 0 alpha lipoic acid 200 mg Tablet 200 mg PO UD RF: 0 albuterol sulfate 2.5 mg /3 mL (0.083 %) Solution For Nebulization 2.5 mg continuous nebulization QID RF: 0 Incruse Ellipta 62.5 mcg/actuation Blister With Device 1 inh inhalation DAILY Qty: 30 RF: 2 Advanced Probiotic 625 mg (10 billion cell) Capsule 2 cap PO DAILY Qty: 60 RF: 0 Eliquis 5 mg Tablet 5 mg PO BID Qty: 60 RF: 1 Changed torsemide 10 mg tablet 20 mg PO Q2D Qty: 0 RF: 0 Discontinued losartan 25 mg Tablet 25 mg PO QAM Qty: 30 RF: 1 spironolactone 25 mg Tablet 25 mg PO QAM Qty: 30 RF: 1 Discharge Orders: Discharge Order (Routine); Ordered 03/24/21 Ordered By: José Miguel Marley Admission Data Admit Date/Time: 03/16/21 02:32 Attending Provider: José Miguel Marley Admit Provider: Solitario Kwon Primary Care Provider: Franky Choi Other Providers: José Miguel Marley ; Solitario Kwon ; Devon Garcia ; Adriel Gutierrez ; Hank Hanley ; Yusuf Castanon ; John Landis ; Jr Isaacs ; Kelly Amaral ; Alda Ibarra ; Clau Kate ; Donell Hayes ; Parminder Nur [facility] Other Interventions: Discharge Summary Assessment (RN) Last Done: 03/24/21 16:01
[2021-03-24 15:03] VITALS: O2SAT 93
[2021-03-24 16:03] VITALS: BP 134/81
[2021-03-24 16:05] VITALS: PULSE 94
== END 2021-03-24 19:50 | disposition home health service (06) | DRG 641 ==
LOC: ED 21:41 → SUATTDRO 03-16 02:32 → 2S 03-16 02:32 → 2W 03-17 22:08